=== PATIENT | female | born 1975 | race Caucasian/White ===

== ENCOUNTER 2020-10-22 18:52 | Inpatient (IN) | payer OTHER, SELFPAY ==
[2020-10-22 18:58] VITALS: BP 135/64; PULSE 108; RESP 16; TEMP 36.4; O2SAT 100; BMI 23.7
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
--- NOTE | 2020-10-22 20:00 | PC.NURSE ---
BOW MAKER [employer]ODUCTION at bedside for primary eval while pt was placed in 19H. Pt scattering multiple belongings across the floor, rifling through paperwork while BOW MAKER [employer] was trying to assess pt. Pt moved to 6H for safety. Pt continues scattering her belongings throughout the adams again, persistently rifling through paperwork, stating that he was looking for something. Although pt is calm, she is unable to follow simple commands due to scattered and eratic thoughts. Pt noted to be a poor historian, unsure if the information she is relaying is accurate. Pt agreeable to urine sample, urine obtained and sent. Awaiting reeval by B[employer], continue to monitor.
[2020-10-22 21:00] VITALS: RESP 16
[2020-10-22 21:17] LABS: MANUAL DIFF FLAG NO
[2020-10-22 21:20] LABS: Basophils Absolute Auto 0.1 X10*3/uL (0.0-0.2); Basophils Percent Auto 0.5 % (0-2); Eosinophils Absolute Auto 0.2 X10*3/uL (0.0-0.4); Eosinophils Percent Auto 1.5 % (0-4); Hematocrit 40.2 % (37-47); Hemoglobin 12.8 g/dl (12.0-16.0); Imm Gran Abs Auto 0.02 X10*3/uL (0.00-0.03); Imm Gran Pct Auto 0.2 % (0.0-0.4); Lymphocytes Percent Auto 18.3 % (20-40); Mean Corpuscular HGB Conc 31.8 g/dl (31.0-35.0); Mean Corpuscular Hemoglobin 29.4 pg (27.0-33.0); Mean Corpuscular Volume 92.4 fL (80-98); Mean Platelet Volume 9.7 fL (9.4-12.3); Monocytes Absolute Auto 0.5 X10*3/uL (0.1-1.2); Monocytes Percent Auto 4.5 % (2-11); Neutrophils Absolute Auto 8.2 X10*3/uL (2.0-8.3); Platelet Count 546 X10*3/uL (160-400); Red Blood Count 4.35 X10*6/uL (4.20-5.50); Red Cell Distribution Width 13.6 % (11.0-16.0)
[2020-10-22 21:26] LABS: UPreg QC Valid YES; Urine Pregnancy NEGATIVE (NEGATIVE)
[2020-10-22 21:37] LABS: Ethanol < 10 mg/dL
[2020-10-22 21:40] LABS: Salicylate < 5.0 mg/dL (15-30)
[2020-10-22 21:51] LABS: Amphetamine Screen Urine Not Detected (Not Detect); Barbiturates, Urine Not Detected (Not Detect); Benzodiazepines Screen Urine POSITIVE (Not Detect); Cannabinoid Screen Urine Not Detected (Not Detect); Cocaine Screen Urine Not Detected (Not Detect); Opiate Screen Urine Not Detected (Not Detect); Phencyclidine Screen Urine Not Detected (Not Detect)
--- NOTE | 2020-10-22 22:05 | PC.NURSE ---
Pt found sitting upright in chair, on cell phone. Pt requesting this RN notify multiple friends that she is safe, states her phone is not working. Upon evaluation by this RN, sim card to phone found to be removed, pt unable to make calls/send texts. Pt found sim card in the water in the bathroom sink, states she is unsure how the sim card fell out of her phone. Pt requesting food/drink, provided with water and GF snacks. Pt states I can't eat those, I have Celiacs. This RN reassuring pt that they were GF, showing pt the GF label. Pt still refusing to eat/drink despite claiming she is dehydrated, pt storing all of the food in her suitcase. Continue to monitor.
--- NOTE | 2020-10-22 22:20 | PC.NURSE ---
Pt provided with a portable phone to assure friends/family of her safety. Pt asking this RN to do so but then refusing to allow this RN to contact friends/family.
--- NOTE | 2020-10-22 22:39 | PC.NURSE ---
THIS RN SPOKE W/ NORMAN AT [facility] WHO ADVISED FAX RECEIVED, WILL BE PASSED ON TO HOSPITAL LIAISON TO SET UP EVALUATION.
[2020-10-22] MEDS: ALPRAZolam 0.5 MG TABLET 1 MG PO (22:49)
[2020-10-22 23:00] VITALS: RESP 20
[2020-10-22 23:18] LABS: Acetaminophen LAB < 1 mcg/mL (<30)
--- NOTE | 2020-10-22 23:18 | PC.NURSE ---
Pt speaking with crisis at bedside, appears calm and cooperative at this time.
[2020-10-23 01:00] VITALS: RESP 16
--- NOTE | 2020-10-23 01:08 | PC.NURSE ---
METAL FILER at bedside discussing plan to transfer to pod, pt notified at this time that she has been Section 12ed.
--- NOTE | 2020-10-23 01:15 | PC.NURSE ---
Pt transferred into pod.
[2020-10-23 02:00] LABS: COVID-19 Test Negative (Negative); IDNOW Serial# 9DD0AD1C
[2020-10-23 02:04] VITALS: BP 143/96; PULSE 109; RESP 16; TEMP 36.9; O2SAT 97
[2020-10-23] MEDS: clonazePAM 1 MG TABLET PO (02:04)
[2020-10-23] MEDS: HaloperidoL 5 MG TABLET PO (02:04)
--- NOTE | 2020-10-23 02:14 | PC.NURSE ---
PATIENT MOVED TO POD AFTER BEING IN ED FOR SEVERAL HOURS. PT ASKED TO USE THE BATHROOM ALONE BEFORE CHANGING OVER. THIS STAFF WATCHED IN THE MIRROR AND NOTICED PT HAND UNDER HER SHIRT AND OPENED THE DOOR AND QUICKLY BEGAN CHANGEOVER. DURING CHANGEOVER PT WAS ASKED TO REMOVE HER UNDERWIRE BRA. PT GAVE THIS STAFF A HARD TIME REMOVING BRA. WHEN BRA WAS REMOVED PILLS FELL ON THE FLOOR AND IN PT ARMS. THIS STAFF CALLED SECURITY AND REMOVED ALL PILLS AND BELONGINGS.
--- NOTE | 2020-10-23 02:38 | MHC.CARE ---
CARE Team present in Pod when pt is transferred from main ED. Per pod tech, pt was found to have numerous pills in her bra during exchange administrator. Intent is unknown at this time. Pt is observed to be decompensated, with delusional, paranoid thought process. Pt is demanding toward staff and is observed to have excess energy and labile mood. CARE Team places pt on sect 12 for safety until crisis team can assess pt. Pt has not been assessed by [facility], and per Jabari RN, pt was recently added to N queue. CARE Team reaches out to [facility] crisis in [place] to gather additional information. Per Ramsey from QUILTING SUPERVISOR, [place] [facility] [place] a sect 12 for similar presentation, though seemingly lower acuity, and was d/c to home. [facility] reports that prior to recent evaluation, they had not seen pt since 05/2019. Plan is for pt to be seen by [facility] crisis.
[2020-10-23 03:26] LABS: Anion Gap 15 (12-20); Blood Urea Nitrogen 7 mg/dL (9-16); Carbon Dioxide 25 mmol/L (22-29); Chloride 106 mmol/L (96-108); Creatinine Clr Calc Pharmacy 132.1; Estimated Glomerular Filt Rate > 60; Glucose Random 101 mg/dL (60-115); Potassium 3.7 mmol/L (3.3-5.1); Sodium 142 mmol/L (135-145)
--- NOTE | 2020-10-23 03:29 | PC.NURSE ---
[facility] at bedside.
--- NOTE | 2020-10-23 07:16 | PC.NURSE ---
Report received from TRAVIS Barboza. Pt resting, resp unlabored.
--- NOTE | 2020-10-23 10:44 | PC.NURSE ---
Psychiatry in w/ pt
--- NOTE | 2020-10-23 12:32 | PC.NURSE ---
Late entry: pt seen by M5 provider, medications currently on hold until further notice. Pt when awake very anxious about her medications, stating they are prescribed, and she needs them. Pt also anxious about food, states she has multiple restrictions, reports she has coca cola in her locker which she requires for medical reasons. Reviewed w/ security, luistle sealed, pt was able to tolerate cheerios and coca cola. Currently resting, resp unlabored.,
[2020-10-23 14:11] LABS: Folate 4.7 ng/mL (> or = 4.0); Vitamin B12 1234 pg/mL (200-900)
[2020-10-23 15:39] VITALS: BP 124/72; PULSE 85; RESP 18; TEMP 37.1; O2SAT 98
--- NOTE | 2020-10-23 15:56 | PC.NURSE ---
Pt awake briefly, asking 'what's the plan.' Pt notified that she has been accepted to . Pt stating 'I thought I was going to go to a medical unit?' Explained inpatient process and structure. No further questions asked. Pt currently resting.
--- NOTE | 2020-10-23 16:53 | MHC.CM.ED ---
Late entry for 10/22/20 at 2245. CM asked to meet with pt by Aniya Carlos. Pt alert and oriented to person, place and time. Pt exhibits rambling speech and is unable to answer basic questions directly. Pt was unable to tell CM who her PCP was initially and was searching through loose papers to find the name and spelling. Dr. Wilfrido Garnica cares for her lymes disease in [place] and her PCP is Jennifer Levi N.P. Pt would not speak to me until the SIM card was removed from her phone. States my is listening and tracking me with it . CM suggested she shut off the phone, but pt stated he can still hear her. RN removed SIM card and gave it back to pt at her request. CM asked pt if she had health insurance, as she is listed as self pay. Pt again sifted through her plastic bag of paperwork and told me she had [employer] through her . She then handed CM a receipt from [facility] and requested CM to call them for the insurance information. When CM asked pt why she came to the emergency room, pt stated her friend who works here told her we could advocate for her . Pt wants CM to call the [employer] and ask them to remove the computer from her home in [place], as her is trying to take her children from her. Stated there are untruths on that computer. CM explained that in the ER, we could care for her medically and mentally, but I could not call the [place] [employer] with that request. Pt seemed very confused by that. Pt then told CM that her is taking her children from her and is going to divorce her. Stated she has no where to go, Pt states she was in [place] for treatments for neurologic lymes disease and a host of other diseases and has been home for 2 days. Pt is rambling and unable to focus during conversation. CM then spoke with Aniya Rangel and relayed above information to her. KLARISSA told N.P. that pt does not appear to be safe to leave ER and needs to have a Crisis evaluation, as this is not CM speciality. Pt is awaiting [facility] crisis evaluation and is not a CM pt at this time.
--- NOTE | 2020-10-23 17:51 | PC.NURSE ---
Pt resting, resp unlabored.
--- NOTE | 2020-10-23 18:33 | PC.NURSE ---
Pt awakened, now eating dinner, cheerios as requested. No other concerns reported.
--- NOTE | 2020-10-23 20:25 | P.CNPS_ITS ---
History of Present Illness Date of Service: 10/23/2020 Chief Complaint: PSYCHOSIS Reason for Consult: psychosis Discussed with referring provider: Yes Sources of Information: patient interviewed, chart reviewed and crisis/core team assessment reviewed HPI Narrative: Mrs. Peralta is a 44 year-old woman with hx of Bipolar Disorder. Pt was brought to [facility] ED via EMS after called 911 as pt was reporting paranoid delusions of several people following her, yelling, physically assaultive towards when redirected, found standing naked in driveway. In the ED, utox was positive for benzos. 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 Pt in fact returned from [place] 3 days prior to presenting to ED. Apparently, pt was being treated for lyme disease with FITTER'S ASSISTANT involvement by a specialist in [place]. However, pt did not receive treartment as she was combative, agitated, paranoid. [place] was [place] back [place] Per , when pt return she was agitated, combative, with paranoid delusions, very irritable and disorganized. She was not eating nor sleeping. Pt in the ED, presents as irritable. She reports people tracking her and hacking her computer. She states she has complications from lyme and this is the treatment she needs. She dismisses previous dx of Bipolar two years ago. She denies VH/AH. Past Psychiatric History: Inpatient: [facility] 2018 OP: [employer] Medication trials: adderall, xanax, risperidone Medical Evaluation Reviewed: Yes Review of Systems Constitutional: Reports daytime sleepiness and Reports fatigue Reports Normal hearing present and Denies dizziness Cardiovascular: Denies chest pain, Denies chest pain with activity, Denies rapid heart rate and Denies dyspnea Respiratory: Denies chest congestion, Denies cough and Denies dyspnea Gastrointestinal: Denies constipation and Denies diarrhea Reports Normal hearing present, Denies Neuro-related abnormal movements, Denies burning sensations and Denies dizziness Endocrine: Reports fatigue PMF Medical History ADHD Anxiety Ethan Marrero infection Lyme disease Mast cell activation [place] exposure PTSD (post-traumatic stress disorder) Diagnostics Vital Signs (24Hr): Vital Signs - 24 hr 10/22/20 21:00 10/22/20 23:00 10/23/20 01:00 Temperature Pulse Rate Respiratory Rate 16 20 16 Blood Pressure Pulse Oximetry 10/23/20 02:04 10/23/20 15:39 Temperature 98.4 F 98.8 F Pulse Rate 109 H 85 Respiratory Rate 16 18 Blood Pressure 143/96 H 124/72 Pulse Oximetry 97 98 Body Mass Index 23.7 Labs Results: 10/22/20 21:10 10/23/20 02:52 Labs: Laboratory Results - last 48 hr 10/22/20 10/22/20 10/22/20 21:10 21:10 21:10 WBC 11.0 H RBC 4.35 Hgb 12.8 Hct 40.2 MCV 92.4 MCH 29.4 MCHC 31.8 RDW 13.6 Plt Count 546 H MPV 9.7 Immature Gran % (Auto) 0.2 Neut % (Auto) 75.0 H Lymph % (Auto) 18.3 L [place] % (Auto) 4.5 Eos % (Auto) 1.5 Baso % (Auto) 0.5 Lymph # (Auto) 2.0 [place] # (Auto) 0.5 Eos # (Auto) 0.2 Baso # (Auto) 0.1 Abs Immat Gran (auto) 0.02 Absolute Neuts (auto) 8.2 Absolute Nucleated RBC 0.000 Nucleated RBC % (auto) 0.0 Sodium Potassium Chloride Carbon Dioxide Anion Gap BUN Creatinine Estim Creat Clear Calc Estimated GFR Random Glucose Calcium Vitamin B12 Folate Urine Test Salicylates < 5.0 L Urine Opiates Screen Not Detected Acetaminophen < 1 Ur Barbiturates Screen Not Detected Ur Phencyclidine Scrn Not Detected Ur Amphetamines Screen Not Detected U Benzodiazepines Scrn POSITIVE H Urine Cocaine Screen Not Detected U Marijuana (THC) Screen Not Detected Ethyl Alcohol COVID-19 (JINA) COVID-19 Clin Com 10/22/20 10/22/20 10/23/20 21:10 21:10 01:31 WBC RBC Hgb Hct MCV MCH MCHC RDW Plt Count MPV Immature Gran % (Auto) Neut % (Auto) Lymph % (Auto) [place] % (Auto) Eos % (Auto) Baso % (Auto) Lymph # (Auto) [place] # (Auto) Eos # (Auto) Baso # (Auto) Abs Immat Gran (auto) Absolute Neuts (auto) Absolute Nucleated RBC Nucleated RBC % (auto) Sodium Potassium Chloride Carbon Dioxide Anion Gap BUN Creatinine Estim Creat Clear Calc Estimated GFR Random Glucose Calcium Vitamin B12 Folate Urine Test NEGATIVE Salicylates Urine Opiates Screen Acetaminophen Ur Barbiturates Screen Ur Phencyclidine Scrn Ur Amphetamines Screen U Benzodiazepines Scrn Urine Cocaine Screen U Marijuana (THC) Screen Ethyl Alcohol < 10 COVID-19 (JINA) Negative COVID-19 Clin Com See Note 10/23/20 10/23/20 02:52 13:07 WBC RBC Hgb Hct MCV MCH MCHC RDW Plt Count MPV Immature Gran % (Auto) Neut % (Auto) Lymph % (Auto) [place] % (Auto) Eos % (Auto) Baso % (Auto) Lymph # (Auto) [place] # (Auto) Eos # (Auto) Baso # (Auto) Abs Immat Gran (auto) Absolute Neuts (auto) Absolute Nucleated RBC Nucleated RBC % (auto) Sodium 142 Potassium 3.7 Chloride 106 Carbon Dioxide 25 Anion Gap 15 BUN 7 L Creatinine 0.62 Estim Creat Clear Calc 132.1 Estimated GFR > 60 Random Glucose 101 Calcium 9.0 Vitamin B12 1234 H Folate 4.7 Urine Test Salicylates Urine Opiates Screen Acetaminophen Ur Barbiturates Screen Ur Phencyclidine Scrn Ur Amphetamines Screen U Benzodiazepines Scrn Urine Cocaine Screen U Marijuana (THC) Screen Ethyl Alcohol COVID-19 (JINA) COVID-19 Clin Com Mental Status Exam Mental Status Exam Narrative: Appearance: wearing hospital gown, poor hygiene, disheveled Behavior: guarded and irritable Psychomotor: some agitation noted Speech: clear, normal rate/rhythm/volume, spontaneous TP: tangential TC: perseverance on somatic concerns, paranoid delusions thinks she is being followed, conspiring against her. Mood: frustrated Affect:irritable, congruent with reported mood SI:denies HI:denies AH/VH:denies Delusions:paranoid delusions Insight/judgment:impairedx 2 Memory/cog: alert oriented x 3.impaired secondary to psychiatric symptoms. Medications Medications Current Medications Generic Name Dose Route Start Last Admin Trade Name Freq PRN Reason Stop Dose Admin Haloperidol 2 mg 10/23/20 12:06 Haloperidol 1 Mg Tablet PO Q6H PRN agitation Allergies Allergies Allergy/AdvReac Type Severity Reaction Status Date / Time lorazepam [From Ativan] AdvReac Headache Verified 10/22/20 19:11 Assessment & Plan Assessment & Plan (1) Bipolar 1 disorder: Status: Acute Code(s): F31.9 - Bipolar disorder, unspecified Recommendations: 1. Pt continues to meet inpatient level of care. 2. Pt refusing medications but explained that they will be offered and she can decline. Greater than 50% of the session was spent on counseling and/or coordination of care Patient educated on: diagnosis, medication risk/benefits, substance abuse and therapeutic strategies Informed Consent: understands
[2020-10-23 21:18] VITALS: BP 146/81; PULSE 77; RESP 20; TEMP 36.6; O2SAT 95
--- NOTE | 2020-10-23 22:44 | PC.NURSE ---
RN to RN report completed with M5. Orders put in by M5 provider will be taken on M5 per M5. Patient wants to sign the 3 day notice, patient made aware of CV and 3 day notice and wanted to sign CV, foam provided/patient signed CV, care team notified.
[2020-10-23 23:40] VITALS: BP 133/51; PULSE 90; TEMP 36.4
--- NOTE | 2020-10-24 01:29 | PC.ADMIT ---
Patient is a 44 year old Macedonian speaking female admitted from [facility] ED to M5 as a Section 12B at 2340 10/23/2020 and placed on 5 minute safety checks. Patient was evaluated by N after being medically cleared in the ED and deemed in need of IPLOC on the Psychiatric unit. Patient was relatively pleasant with rapid, disorganized and pressured speech. She was willing to sign releases for providers but was too tired to complete the admission assessment with this science writer. Patient said that due to her Lyme Disease issues she really needed to be on the medical unit. Patient denied any SI or HI, denied any AH or VH. She did c/o feeling cold which she said is due to her immune issues. Patient was given warm blankets and also given a pitcher of stu martin. She was provided a quiet place to sleep in Group room B on a mattress with additional blankets. She repeated I am so tired I just need to go to sleep . Admission orders were placed by Dr. Mattson. Patient will be on 5 minute safety checks with unlocked bathroom. Her past psychiatric history seems vague but she does have providers. She was recently in [place] for treatment for several medical conditions but the treatments were stopped because of her combative behavior. Additional information is in the N assessment
[2020-10-24 07:02] LABS: Lyme Abs Screen <0.90 index
[2020-10-24 07:54] LABS: HIV AB/AG Nonreactive (Nonreactive); HIV Num 1 0.07 S/CO (0.00-0.99)
[2020-10-24 09:06] LABS: Syphilis Screen Nonreactive (Nonreactive)
--- NOTE | 2020-10-24 17:08 | P.HPPS_ITS ---
HPI Chief Complaint: PSYCHOSIS Sources of Information: patient interviewed, chart reviewed and crisis/core team assessment reviewed HPI Subjective Notes: Section 12B Narrative: Ms. Peralta is a 44 year-old woman with hx of Bipolar Disorder who was brought to [facility] ED after called 911 as pt has been presenting as increasingly more agitated, paranoid delusions, physically aggressive towards in attempt to be redirected, standing naked in drive way. In ED, utox positive for benzodiazepine. Mrs. Peralta apparently came back from [place] two days before presenting to ED where she was receiving treatment for Lyme Disease with PURIFICATION DIRECTOR involvement. Pt was sent back due to increase disorganization, paranoia and agitation. Pt reports that she is being tracked by about 14 individual who have hacked her phone, computer. She also believes is trying to take her children away and that she does not need psychiatric treatment. Pt insists having on rare blood disorder as cause of confusion, fatigue. She denies VH/AH. She declines taking any psychotropic medication as she reports those are toxic medications for the brain. Pt's has restraining order against pt due to agitation and explosive behaviors and fear that she may take children erradically as she did two years ago. reports pt started to have similar symptoms after having first child 5 years ago. reports pt decompensated even further two years ago. Pt also has combination of autoimmune conditions including Hashimotos, mast cell activation. 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 Past Psychiatric History: Inpatient: [facility] 2018 OP: CUSTOMER SUCCESS ADVOCATE Medication trials: adderall, xanax, risperidone Medical Evaluation Reviewed: Yes [facility] Medical History ADHD Anxiety Ethan Marrero infection Lyme disease Mast cell activation [place] exposure PTSD (post-traumatic stress disorder) Diagnostics Vital Signs (24Hr): Vital Signs - 24 hr 10/23/20 21:18 10/23/20 23:40 Temperature 97.9 F 97.6 F Pulse Rate 77 90 Respiratory Rate 20 Blood Pressure 146/81 H 133/51 L Pulse Oximetry 95 Body Mass Index 23.7 Labs Results: 10/22/20 21:10 10/23/20 02:52 Labs: Laboratory Results - last 48 hr 03/31/21 03/31/21 03/31/21 21:10 21:10 21:10 WBC 11.0 H RBC 4.35 Hgb 12.8 Hct 40.2 MCV 92.4 MCH 29.4 MCHC 31.8 RDW 13.6 Plt Count 546 H MPV 9.7 Immature Gran % (Auto) 0.2 Neut % (Auto) 75.0 H Lymph % (Auto) 18.3 L [place] % (Auto) 4.5 Eos % (Auto) 1.5 Baso % (Auto) 0.5 Lymph # (Auto) 2.0 [place] # (Auto) 0.5 Eos # (Auto) 0.2 Baso # (Auto) 0.1 Abs Immat Gran (auto) 0.02 Absolute Neuts (auto) 8.2 Absolute Nucleated RBC 0.000 Nucleated RBC % (auto) 0.0 Sodium Potassium Chloride Carbon Dioxide Anion Gap BUN Creatinine Estim Creat Clear Calc Estimated GFR Random Glucose Calcium Vitamin B12 Folate Urine Test Salicylates < 5.0 L Urine Opiates Screen Not Detected Acetaminophen < 1 Ur Barbiturates Screen Not Detected Ur Phencyclidine Scrn Not Detected Ur Amphetamines Screen Not Detected U Benzodiazepines Scrn POSITIVE H Urine Cocaine Screen Not Detected U Marijuana (THC) Screen Not Detected Ethyl Alcohol T.pallidum Ab (EIA) Lyme Screen IgG & IgM COVID-19 (JINA) COVID-19 Clin Com HIV 1&2 Ab/P24 Ag 4thGn 10/22/20 10/22/20 10/23/20 21:10 21:10 01:31 WBC RBC Hgb Hct MCV MCH MCHC RDW Plt Count MPV Immature Gran % (Auto) Neut % (Auto) Lymph % (Auto) [place] % (Auto) Eos % (Auto) Baso % (Auto) Lymph # (Auto) [place] # (Auto) Eos # (Auto) Baso # (Auto) Abs Immat Gran (auto) Absolute Neuts (auto) Absolute Nucleated RBC Nucleated RBC % (auto) Sodium Potassium Chloride Carbon Dioxide Anion Gap BUN Creatinine Estim Creat Clear Calc Estimated GFR Random Glucose Calcium Vitamin B12 Folate Urine Test NEGATIVE Salicylates Urine Opiates Screen Acetaminophen Ur Barbiturates Screen Ur Phencyclidine Scrn Ur Amphetamines Screen U Benzodiazepines Scrn Urine Cocaine Screen U Marijuana (THC) Screen Ethyl Alcohol < 10 T.pallidum Ab (EIA) Lyme Screen IgG & IgM COVID-19 (JINA) Negative COVID-19 Clin Com See Note HIV 1&2 Ab/P24 Ag 4thGn 10/23/20 10/23/20 10/23/20 02:52 13:07 13:07 WBC RBC Hgb Hct MCV MCH MCHC RDW Plt Count MPV Immature Gran % (Auto) Neut % (Auto) Lymph % (Auto) [place] % (Auto) Eos % (Auto) Baso % (Auto) Lymph # (Auto) [place] # (Auto) Eos # (Auto) Baso # (Auto) Abs Immat Gran (auto) Absolute Neuts (auto) Absolute Nucleated RBC Nucleated RBC % (auto) Sodium 142 Potassium 3.7 Chloride 106 Carbon Dioxide 25 Anion Gap 15 BUN 7 L Creatinine 0.62 Estim Creat Clear Calc 132.1 Estimated GFR > 60 Random Glucose 101 Calcium 9.0 Vitamin B12 Folate Urine Test Salicylates Urine Opiates Screen Acetaminophen Ur Barbiturates Screen Ur Phencyclidine Scrn Ur Amphetamines Screen U Benzodiazepines Scrn Urine Cocaine Screen U Marijuana (THC) Screen Ethyl Alcohol T.pallidum Ab (EIA) Nonreactive Lyme Screen IgG & IgM <0.90 COVID-19 (JINA) COVID-[employer] Clin Com HIV 1&2 Ab/P24 Ag 4thGn 10/23/20 10/23/20 13:07 13:08 WBC RBC Hgb Hct MCV MCH MCHC RDW Plt Count MPV Immature Gran % (Auto) Neut % (Auto) Lymph % (Auto) [place] % (Auto) Eos % (Auto) Baso % (Auto) Lymph # (Auto) [place] # (Auto) Eos # (Auto) Baso # (Auto) Abs Immat Gran (auto) Absolute Neuts (auto) Absolute Nucleated RBC Nucleated RBC % (auto) Sodium Potassium Chloride Carbon Dioxide Anion Gap BUN Creatinine Estim Creat Clear Calc Estimated GFR Random Glucose Calcium Vitamin B12 1234 H Folate 4.7 Urine Test Salicylates Urine Opiates Screen Acetaminophen Ur Barbiturates Screen Ur Phencyclidine Scrn Ur Amphetamines Screen U Benzodiazepines Scrn Urine Cocaine Screen U Marijuana (THC) Screen Ethyl Alcohol T.pallidum Ab (EIA) Lyme Screen IgG & IgM COVID-19 (JINA) COVID-19 Clin Com HIV 1&2 Ab/P24 Ag 4thGn Nonreactive Meds/Allergies Meds Home Medications Acetaminophen (Acetaminophen 325 Mg Tablet) 650 mg PO Q6H PRN PRN Reason: Headache/Pain Mild Scale (1-3) Al Hydroxide/Mg Hydroxide (Magnesium Hydrox/Alum Hydrox 30 Ml Oral.Susp) 30 ml PO Q6H PRN PRN Reason: Heartburn/Nausea Alprazolam (Alprazolam 0.5 Mg Tablet) 1 mg PO DAILY PRN PRN Reason: Agitation Clonazepam (Clonazepam 0.5 Mg Tablet) 0.5 mg PO Q8H PRN PRN Reason: Anxiety Haloperidol (Haloperidol 1 Mg Tablet) 2 mg PO Q6H PRN PRN Reason: agitation Hydroxyzine HCl (Hydroxyzine Hcl 25 Mg Tablet) 25 mg PO BEDTIME PRN PRN Reason: Anxiety Magnesium Hydroxide (Milk Of Magnesia 30 Ml Oral.Susp) 30 ml PO DAILY PRN PRN Reason: Constipation Olanzapine (Olanzapine 5 Mg Tablet) 5 mg PO BID CHARLIE Last Admin: 10/24/20 08:48 Dose: Not Given Documented by: Trazodone HCl (Trazodone Hcl 50 Mg Tablet) 50 mg PO BEDTIME PRN PRN Reason: Insomnia Allergies Allergies Allergy/AdvReac Type Severity Reaction Status Date / Time lorazepam [From Ativan] AdvReac Headache Verified 10/22/20 19:11 Mental Status Exam Mental Status Exam Narrative: Appearance: wearing hospital gown, poor hygiene, disheveled Behavior: guarded and irritable Psychomotor: some agitation noted Speech: clear, normal rate/rhythm/volume, spontaneous TP: tangential TC: perseverance on somatic concerns, paranoid delusions thinks she is being followed, conspiring against her. Mood: frustrated Affect:irritable, congruent with reported mood SI:denies HI:denies AH/VH:denies Delusions:paranoid delusions Insight/judgment:impairedx 2 Memory/cog: alert oriented x 3.impaired secondary to psychiatric symptoms. Assessment & Plan Assessment & Plan (1) Bipolar 1 disorder: Status: Acute Code(s): F31.9 - Bipolar disorder, unspecified Assessment and Plan: 1. Obtain collateral information 2. Start Olanzapine 5mg po BID. Reason for continued inpatient stay Substantial Risk for: inability to function
[2020-10-24 20:00] VITALS: BP 115/59; PULSE 86; TEMP 36.7
[2020-10-24] MEDS: clonazePAM 0.5 MG TABLET PO (20:13)
[2020-10-24] MEDS: HaloperidoL 1 MG TABLET 2 MG PO (20:18)
[2020-10-25 06:35] VITALS: BP 128/74; PULSE 75; RESP 16; TEMP 37.1; O2SAT 97
[2020-10-25 08:06] LABS: Baso%MD 0.7 %; Eos%MD 4.7 %; Hemoglobin 12.1 g/dl (12.0-16.0); IG%MD 0.4 %; Mean Corpuscular HGB Conc 31.8 g/dl (31.0-35.0); Mean Corpuscular Hemoglobin 29.2 pg (27.0-33.0); Mean Corpuscular Volume 91.8 fL (80-98); Mean Platelet Volume 9.7 fL (9.4-12.3); Mono%MD 6.9 %; Neut%MD 60.3 %; Platelet Count 442 X10*3/uL (160-400); Red Blood Count 4.14 X10*6/uL (4.20-5.50); Red Cell Distribution Width 13.2 % (11.0-16.0); White Blood Count 6.8 X10*3/uL (4.8-10.8)
[2020-10-25] MEDS: clonazePAM 0.5 MG TABLET PO ×2 (09:04→20:25)
[2020-10-25] MEDS: HaloperidoL 1 MG TABLET 2 MG PO ×2 (09:10→18:15)
[2020-10-25] MEDS: Acetaminophen 325 MG TABLET 650 MG PO ×2 (09:10→20:27)
[2020-10-25 09:14] LABS: Band Neutrophils Percent 2 % (3-5); Basophils Abs Manual 0.1 X10*3/uL (0.0-0.3); Basophils Percent Manual 1 % (0-1); Eosinophils Absolute Manual 0.3 X10*3/UL (0.0-0.8); Eosinophils Percent Manual 4 % (0-4); Lymphocytes Percent Manual 30 % (20-40); Monocytes Absolute Manual 0.3 X10*3/uL (0.0-1.2); Monocytes Percent Manual 5 % (2-11); Neutrophils Absolute Manual 4.1 X10*3/uL (2.2-7.9); Neutrophils Percent Manual 58 % (45-73); RBC Morphology NORMAL
[2020-10-25 09:15] LABS: Platelet Estimate SLIGHTLY INCREASED (NORMAL); Platelet Morphology Comment NORMAL
[2020-10-25] MEDS: OLANZapine 5 MG TABLET PO (20:25)
--- NOTE | 2020-10-25 20:32 | HO.PSYCHPN ---
Subjective Subjective Date of Service: 10/25/20 Reason For Visit: PSYCHOSIS Interim History: Angélica remains extremely ambivalent about taking any medication. She has been taking some with strong persuasion. She is pressured, disorganized and only briefly able to acknowlege that she is manic. She is fixated on her INFECTION PREVENTION COORDINATOR Lyme diagnosis. Medication Compliance: Intermittent Side effects from medications: No Attending Groups: No Review of Systems Acute medical concerns: No Medical Review of Systems: unchanged Review of Systems Review of Systems Yes all other systems are reviewed and are negative Mental Status Exam Mental Status Exam Patient Appearance: Disheveled Level of Consciousness: Appropriate Patient Behavior: Talkative, Cooperative, Suspicious, Restless and Confused Mood Description: Suspicious, Anxious, Labile and Nervous Affect Description: Suspicious and Labile Patient Cognition Impaired: No Ability to Follow Directions: Poor Speech Pattern: Perseverating, Rambling and Pressured Memory Description: Intact Hallucinations: None Delusions: Not Present Thought Process: Rumination and Confusion Thought Content: positive for Flight of Ideas, positive for Circumstantial, positive for Perseveration, positive for Disorganized, negative for Suicidal Ideation and negative for Homicidal Ideation Judgement: Poor Diagnostics Vital Signs (24Hr): Vital Signs - 24 hr 10/25/20 06:35 Temperature 98.7 F Pulse Rate 75 Respiratory Rate 16 Blood Pressure 128/74 Pulse Oximetry 97 Body Mass Index 23.7 Labs Results: 10/25/20 07:29 10/23/20 02:52 Labs: Laboratory Results - last 48 hr 10/23/20 10/23/20 10/23/20 13:07 13:07 13:08 WBC RBC Hgb Hct MCV MCH MCHC RDW Plt Count MPV Absolute Nucleated RBC Nucleated RBC % (auto) Neutrophils % (Manual) Band Neutrophils % Lymphocytes % (Manual) Monocytes % (Manual) Eosinophils % (Manual) Basophils % (Manual) Abs Neuts (Manual) Lymphocytes # (Manual) Monocytes # (Manual) Eosinophils # (Manual) Basophils # (Manual) Platelet Estimate Plt Morphology Comment RBC Morphology T.pallidum Ab (EIA) Nonreactive Lyme Screen IgG & IgM <0.90 HIV 1&2 Ab/P24 Ag 4thGn Nonreactive 10/25/20 07:29 WBC 6.8 RBC 4.14 L Hgb 12.1 Hct 38.0 MCV 91.8 MCH 29.2 MCHC 31.8 RDW 13.2 Plt Count 442 H MPV 9.7 Absolute Nucleated RBC 0.000 Nucleated RBC % (auto) 0.0 Neutrophils % (Manual) 58 Band Neutrophils % 2 L Lymphocytes % (Manual) 30 Monocytes % (Manual) 5 Eosinophils % (Manual) 4 Basophils % (Manual) 1 Abs Neuts (Manual) 4.1 Lymphocytes # (Manual) 2.0 Monocytes # (Manual) 0.3 Eosinophils # (Manual) 0.3 Basophils # (Manual) 0.1 Platelet Estimate SLIGHTLY INCREASED Plt Morphology Comment NORMAL RBC Morphology NORMAL T.pallidum Ab (EIA) Lyme Screen IgG & IgM HIV 1&2 Ab/P24 Ag 4thGn Medications Medications Current Medications Generic Name Dose Route Start Last Admin Trade Name Freq PRN Reason Stop Dose Admin Acetaminophen 650 mg 10/23/20 22:12 10/25/20 20:27 Acetaminophen 325 Mg Tablet PO 650 mg Q6H PRN Administration Headache/Pain Mild Scale (1-3) Al Hydroxide/Mg Hydroxide 30 ml 10/23/20 22:12 Magnesium Hydrox/Alum Hydrox 30 Ml Oral.Susp PO Q6H PRN Heartburn/Nausea Clonazepam 0.5 mg 10/24/20 21:00 10/25/20 20:25 Clonazepam 0.5 Mg Tablet PO 0.5 mg BID CHARLIE Administration Haloperidol 2 mg 10/23/20 12:06 10/25/20 18:15 Haloperidol 1 Mg Tablet PO 2 mg Q6H PRN Administration agitation Hydroxyzine HCl 25 mg 10/23/20 22:12 Hydroxyzine Hcl 25 Mg Tablet PO BEDTIME PRN Anxiety Magnesium Hydroxide 30 ml 10/23/20 22:12 Milk Of Magnesia 30 Ml Oral.Susp PO DAILY PRN Constipation Olanzapine 5 mg 10/23/20 21:00 10/25/20 20:25 Olanzapine 5 Mg Tablet PO 5 mg BID CHARLIE Administration Trazodone HCl 50 mg 10/23/20 22:12 Trazodone Hcl 50 Mg Tablet PO BEDTIME PRN Insomnia Allergies Allergies Allergy/AdvReac Type Severity Reaction Status Date / Time lorazepam [From Ativan] AdvReac Headache Verified 10/22/20 19:11 Assessment & Plan Assessment & Plan (1) Acute psychosis: Status: Acute Code(s): F23 - Brief psychotic disorder (2) Bipolar 1 disorder: Status: Acute Code(s): F31.9 - Bipolar disorder, unspecified Assessment and Plan: CT current plan Greater than 50% of the session was spent on counseling and/or coordination of care Patient educated on: diagnosis and medication risk/benefits Informed Consent: does not understand Reason for contiued inpatient stay Substantial Risk for: harm to self, inability to function and rapid decompensation
[2020-10-26] MEDS: clonazePAM 0.5 MG TABLET PO ×3 (08:36→20:31)
[2020-10-26] MEDS: OLANZapine 5 MG TABLET PO ×2 (08:37→20:31)
--- NOTE | 2020-10-26 11:35 | PC.NURSE ---
Patients called into unit for an update. Update given. Pts verbalizing his frustration that we have not reached out to her MD in [place]. Dr Mattson notified
[2020-10-26] MEDS: HaloperidoL 1 MG TABLET 2 MG PO ×2 (12:02→18:17)
[2020-10-26] MEDS: Acetaminophen 325 MG TABLET 650 MG PO ×2 (12:03→20:31)
--- NOTE | 2020-10-26 17:04 | HO.PSYCHPN ---
Subjective Subjective Date of Service: 10/26/20 Reason For Visit: PSYCHOSIS Subjective Notes: Freire Warning Interim History: Angélica remains extremely ambivalent about taking any medication. She has been taking some with strong persuasion. She is pressured, disorganized and only briefly able to acknowledge that she is manic. 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 I had a lengthy discussion with her Jules who is concerned that her team look into her medical conditions and consider how these may or may not be playing into this picture. He would like her provider to speak with the physician in [place] to coordinate her care. Medication Compliance: Intermittent Side effects from medications: No Attending Groups: No Review of Systems Acute medical concerns: No Medical Review of Systems: unchanged Review of Systems Review of Systems Constitutional: No Fever, No Chills ENT/Mouth: No Ear Pain, No Nasal Congestion, No sore throat Eyes: No Eye Pain, No Swelling, No Redness Cardiovascular: No Chest Pain, No SOB Respiratory: No Cough, No Sputum, No Dyspnea Gastrointestinal: No Nausea, No Vomiting, No Diarrhea, No Hematochezia, No Melena Genitourinary: No Dysuria, No Urinary Frequency, No Hematuria Musculoskeletal: No Myalgias Skin: No Skin Lesions, No rash Neuro: No Weakness, No Numbness, No Paresthesias, No Dizziness, No Headache Psych: positive Anxiety, positive Depression, positive bryce, no SI/HI Heme/Lymph: No Lymphadenopathy Endocrine: No Polyuria, No Polydipsia Yes all other systems are reviewed and are negative Constitutional: Reports daytime sleepiness and Reports fatigue Reports Normal hearing present and Denies dizziness Cardiovascular: Denies chest pain, Denies chest pain with activity, Denies rapid heart rate and Denies dyspnea Respiratory: Denies chest congestion, Denies cough and Denies dyspnea Gastrointestinal: Denies constipation and Denies diarrhea Reports Normal hearing present, Denies Neuro-related abnormal movements, Denies burning sensations and Denies dizziness Endocrine: Reports fatigue Mental Status Exam Mental Status Exam Patient Appearance: Disheveled Level of Consciousness: Appropriate Patient Behavior: Guarded, Talkative, Suspicious, Restless, Anxious and Confused Mood Description: Suspicious, Anxious, Labile, Nervous and Apprehensive Affect Description: Suspicious and Labile Patient Cognition Impaired: No Ability to Follow Directions: Poor Speech Pattern: Perseverating, Rambling and Pressured Memory Description: Intact Thought Process: Evasive Thought Content: positive for Circumstantial, positive for Perseveration, positive for Disorganized, negative for Suicidal Ideation and negative for Homicidal Ideation Judgement: Poor Diagnostics Vital Signs (24Hr): Body Mass Index 23.7 Labs Results: 10/25/20 07:29 10/23/20 02:52 Labs: Laboratory Results - last 48 hr 10/25/20 07:29 WBC 6.8 RBC 4.14 L Hgb 12.1 Hct 38.0 MCV 91.8 MCH 29.2 MCHC 31.8 RDW 13.2 Plt Count 442 H MPV 9.7 Absolute Nucleated RBC 0.000 Nucleated RBC % (auto) 0.0 Neutrophils % (Manual) 58 Band Neutrophils % 2 L Lymphocytes % (Manual) 30 Monocytes % (Manual) 5 Eosinophils % (Manual) 4 Basophils % (Manual) 1 Abs Neuts (Manual) 4.1 Lymphocytes # (Manual) 2.0 Monocytes # (Manual) 0.3 Eosinophils # (Manual) 0.3 Basophils # (Manual) 0.1 Platelet Estimate SLIGHTLY INCREASED Plt Morphology Comment NORMAL RBC Morphology NORMAL Medications Medications Current Medications Generic Name Dose Route Start Last Admin Trade Name Freq PRN Reason Stop Dose Admin Acetaminophen 650 mg 10/23/20 22:12 10/26/20 12:03 Acetaminophen 325 Mg Tablet PO 650 mg Q6H PRN Administration Headache/Pain Mild Scale (1-3) Al Hydroxide/Mg Hydroxide 30 ml 10/23/20 22:12 Magnesium Hydrox/Alum Hydrox 30 Ml Oral.Susp PO Q6H PRN Heartburn/Nausea Clonazepam 0.5 mg 10/24/20 21:00 10/26/20 08:36 Clonazepam 0.5 Mg Tablet PO 0.5 mg BID CHARLIE Administration Clonazepam 0.5 mg 10/26/20 15:08 10/26/20 15:35 Clonazepam 0.5 Mg Tablet PO 0.5 mg Q4H PRN Administration Anxiety Haloperidol 2 mg 10/23/20 12:06 10/26/20 12:02 Haloperidol 1 Mg Tablet PO 2 mg Q6H PRN Administration agitation Hydroxyzine HCl 25 mg 10/23/20 22:12 Hydroxyzine Hcl 25 Mg Tablet PO BEDTIME PRN Anxiety Magnesium Hydroxide 30 ml 10/23/20 22:12 Milk Of Magnesia 30 Ml Oral.Susp PO DAILY PRN Constipation Olanzapine 5 mg 10/23/20 21:00 10/26/20 08:37 Olanzapine 5 Mg Tablet PO 5 mg BID CHARLIE Administration Trazodone HCl 50 mg 10/23/20 22:12 Trazodone Hcl 50 Mg Tablet PO BEDTIME PRN Insomnia Allergies Allergies Allergy/AdvReac Type Severity Reaction Status Date / Time lorazepam [From Ativan] AdvReac Headache Verified 10/22/20 19:11 Assessment & Plan Assessment & Plan (1) Acute psychosis: Status: Acute Code(s): F23 - Brief psychotic disorder (2) Bipolar 1 disorder: Status: Acute Code(s): F31.9 - Bipolar disorder, unspecified Assessment and Plan: CT current plan Collateral information from provider in [place] Greater than 50% of the session was spent on counseling and/or coordination of care Reason for contiued inpatient stay Substantial Risk for: harm to others, inability to function and rapid decompensation
[2020-10-26 18:00] VITALS: BP 113/64; PULSE 68; RESP 18
[2020-10-27 06:35] VITALS: BP 119/75; PULSE 68; RESP 16; TEMP 36.9; O2SAT 97
[2020-10-27] MEDS: clonazePAM 0.5 MG TABLET PO ×3 (08:44→21:27)
[2020-10-27] MEDS: OLANZapine 5 MG TABLET PO ×2 (08:44→21:28)
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
[2020-10-27 16:05] VITALS: BP 130/78; PULSE 92; TEMP 36.8
[2020-10-27] MEDS: HaloperidoL 1 MG TABLET 2 MG PO (16:21)
[2020-10-27] MEDS: Acetaminophen 325 MG TABLET 650 MG PO (20:28)
[2020-10-28 06:35] VITALS: BP 142/83; PULSE 71; RESP 18; TEMP 36.4; O2SAT 97
[2020-10-28] MEDS: clonazePAM 0.5 MG TABLET PO ×4 (06:41→21:32)
[2020-10-28] MEDS: HaloperidoL 1 MG TABLET 2 MG PO ×2 (06:41→12:38)
[2020-10-28] MEDS: OLANZapine 5 MG TABLET PO ×2 (08:41→21:32)
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
[2020-10-28 17:07] VITALS: BP 131/82; PULSE 97; RESP 18; TEMP 37.2
[2020-10-28] MEDS: Acetaminophen 325 MG TABLET 650 MG PO (17:31)
[2020-10-29 06:20] VITALS: BP 131/82; PULSE 90; RESP 18; TEMP 37.2; O2SAT 98
[2020-10-29] MEDS: clonazePAM 0.5 MG TABLET PO ×2 (08:50→20:15)
[2020-10-29] MEDS: OLANZapine 5 MG TABLET PO (08:50)
[2020-10-29 10:24] LABS: Estimated Average Glucose 94 mg/dL; Hemoglobin A1c % 4.9 %
[2020-10-29 10:25] LABS: Cholesterol 158 mg/dL; HDL Cholesterol 45 mg/dL; LDL Cholesterol Calculated 95 mg/dl; Triglycerides 92 mg/dL
[2020-10-29] MEDS: Acetaminophen 325 MG TABLET 650 MG PO (10:53)
[2020-10-29] MEDS: HaloperidoL 1 MG TABLET 2 MG PO ×2 (10:53→17:50)
--- NOTE | 2020-10-29 13:51 | HO.PSYCHPN ---
Subjective Subjective Reason For Visit: PSYCHOSIS Interim History: Angélica less guarded, able to briefly see concerns about her ability to function and parent as well as labile mood. She denies SI/HI. She reports sleeping better. She has agreed to continue medications. She denies any side effects. There is some paranoia noted in that pt continue at times to report that trying to keep kids and not help financially. No behavioral concerns. Review of Systems Review of Systems Constitutional: No Fever, No Chills ENT/Mouth: No Ear Pain, No Nasal Congestion, No sore throat Eyes: No Eye Pain, No Swelling, No Redness Cardiovascular: No Chest Pain, No SOB Respiratory: No Cough, No Sputum, No Dyspnea Gastrointestinal: No Nausea, No Vomiting, No Diarrhea, No Hematochezia, No Melena Genitourinary: No Dysuria, No Urinary Frequency, No Hematuria Musculoskeletal: No Myalgias Skin: No Skin Lesions, No rash Neuro: No Weakness, No Numbness, No Paresthesias, No Dizziness, No Headache Psych: positive Anxiety, positive Depression, positive bryce, no SI/HI Heme/Lymph: No Lymphadenopathy Endocrine: No Polyuria, No Polydipsia Yes all other systems are reviewed and are negative Constitutional: Reports daytime sleepiness and Reports fatigue Reports Normal hearing present and Denies dizziness Cardiovascular: Denies chest pain, Denies chest pain with activity, Denies rapid heart rate and Denies dyspnea Respiratory: Denies chest congestion, Denies cough and Denies dyspnea Gastrointestinal: Denies constipation and Denies diarrhea Reports Normal hearing present, Denies Neuro-related abnormal movements, Denies burning sensations and Denies dizziness Endocrine: Reports fatigue Mental Status Exam Mental Status Exam Narrative: Appearance: wearing hospital gown, poor hygiene, disheveled Behavior: guarded and irritable Psychomotor: no agitation or retardation noted Speech: clear, normal rate/rhythm/volume, spontaneous TP: tangential TC: perseverance on somatic concerns, paranoid delusions thinks she is being followed, conspiring against her. Mood: okay Affect:irritable SI:denies HI:denies AH/VH:denies Delusions:paranoid delusions Insight/judgment:impaired x 2 Memory/cog: alert oriented x 3.impaired secondary to psychiatric symptoms. Diagnostics Vital Signs (24Hr): Vital Signs - 24 hr 10/29/20 16:36 10/30/20 06:30 Temperature 98.8 F 98.2 F Pulse Rate 113 H 88 Respiratory Rate 18 16 Blood Pressure 136/86 123/79 Pulse Oximetry 98 97 Body Mass Index 23.7 Labs Results: 10/25/20 07:29 10/23/20 02:52 Labs: Laboratory Results - last 48 hr 10/29/20 10/29/20 10/30/20 09:45 09:45 09:37 Estimat Average Glucose 94 Hemoglobin A1c % 4.9 Triglycerides 92 Cholesterol 158 LDL Cholesterol, Calc 95 HDL Cholesterol 45 COVID-19 ([facility]) Negative COVID-19 Clin Com See Note Medications Medications Current Medications Generic Name Dose Route Start Last Admin Trade Name Freq PRN Reason Stop Dose Admin Acetaminophen 650 mg 10/23/20 22:12 10/30/20 10:02 Acetaminophen 325 Mg Tablet PO 650 mg Q6H PRN Administration Headache/Pain Mild Scale (1-3) Al Hydroxide/Mg Hydroxide 30 ml 10/23/20 22:12 Magnesium Hydrox/Alum Hydrox 30 Ml Oral.Susp PO Q6H PRN Heartburn/Nausea Clonazepam 0.5 mg 10/24/20 21:00 10/30/20 09:15 Clonazepam 0.5 Mg Tablet PO 0.5 mg BID CHARLIE Administration Clonazepam 0.5 mg 10/26/20 15:08 10/28/20 12:38 Clonazepam 0.5 Mg Tablet PO 0.5 mg Q4H PRN Administration Anxiety Haloperidol 2 mg 10/23/20 12:06 10/30/20 12:51 Haloperidol 1 Mg Tablet PO 2 mg Q6H PRN Administration agitation Hydroxyzine HCl 25 mg 10/23/20 22:12 Hydroxyzine Hcl 25 Mg Tablet PO BEDTIME PRN Anxiety Magnesium Hydroxide 30 ml 10/23/20 22:12 Milk Of Magnesia 30 Ml Oral.Susp PO DAILY PRN Constipation Olanzapine 10 mg 10/29/20 21:00 10/29/20 20:15 Olanzapine 10 Mg Tablet PO 10 mg BEDTIME CHARLIE Administration Olanzapine 5 mg 10/30/20 09:00 10/30/20 09:16 Olanzapine 5 Mg Tablet PO 5 mg DAILY CHARLIE Administration Trazodone HCl 50 mg 10/23/20 22:12 Trazodone Hcl 50 Mg Tablet PO BEDTIME PRN Insomnia Allergies Allergies Allergy/AdvReac Type Severity Reaction Status Date / Time lorazepam [From Ativan] AdvReac Headache Verified 10/22/20 19:11 Assessment & Plan Assessment & Plan (1) Bipolar disorder with psychotic features: Status: Acute Code(s): F31.9 - Bipolar disorder, unspecified Assessment and Plan: 1. Increase olanzapine to 5mg po daily and 10mg po qhs Greater than 50% of the session was spent on counseling and/or coordination of care Reason for contiued inpatient stay Substantial Risk for: harm to self, harm to others and inability to function
[2020-10-29 16:36] VITALS: BP 136/86; PULSE 113; RESP 18; TEMP 37.1; O2SAT 98
[2020-10-29] MEDS: OLANZapine 10 MG TABLET PO (20:15)
[2020-10-30 06:30] VITALS: BP 123/79; PULSE 88; RESP 16; TEMP 36.8; O2SAT 97
[2020-10-30] MEDS: HaloperidoL 1 MG TABLET 2 MG PO ×3 (06:45→19:03)
[2020-10-30] MEDS: clonazePAM 0.5 MG TABLET PO ×2 (09:15→22:10)
[2020-10-30] MEDS: OLANZapine 5 MG TABLET PO (09:16)
[2020-10-30] MEDS: Acetaminophen 325 MG TABLET 650 MG PO (10:02)
[2020-10-30 10:07] LABS: COVID-19 Test Negative (Negative); IDNOW Serial# 9DD0AD1C
--- NOTE | 2020-10-30 13:53 | HO.PSYCHPN ---
Subjective Subjective Date of Service: 10/30/20 Reason For Visit: PSYCHOSIS Interim History: Angélica reports sleeping and eating better. She is slightly less paranoid and guarded but continues to minimize events leading to this admission. She is taking medications as prescribed. She denies any side effects. She denies VH/AH. Some residual paranoia noted but less intensity. Review of Systems Review of Systems Constitutional: No Fever, No Chills ENT/Mouth: No Ear Pain, No Nasal Congestion, No sore throat Eyes: No Eye Pain, No Swelling, No Redness Cardiovascular: No Chest Pain, No SOB Respiratory: No Cough, No Sputum, No Dyspnea Gastrointestinal: No Nausea, No Vomiting, No Diarrhea, No Hematochezia, No Melena Genitourinary: No Dysuria, No Urinary Frequency, No Hematuria Musculoskeletal: No Myalgias Skin: No Skin Lesions, No rash Neuro: No Weakness, No Numbness, No Paresthesias, No Dizziness, No Headache Psych: positive Anxiety, positive Depression, positive bryce, no SI/HI Heme/Lymph: No Lymphadenopathy Endocrine: No Polyuria, No Polydipsia Yes all other systems are reviewed and are negative Constitutional: Reports daytime sleepiness and Reports fatigue Reports Normal hearing present and Denies dizziness Cardiovascular: Denies chest pain, Denies chest pain with activity, Denies rapid heart rate and Denies dyspnea Respiratory: Denies chest congestion, Denies cough and Denies dyspnea Gastrointestinal: Denies constipation and Denies diarrhea Reports Normal hearing present, Denies Neuro-related abnormal movements, Denies burning sensations and Denies dizziness Endocrine: Reports fatigue Mental Status Exam Mental Status Exam Narrative: Appearance: wearing hospital gown, poor hygiene, disheveled Behavior: guarded and irritable Psychomotor: no agitation or retardation noted Speech: clear, normal rate/rhythm/volume, spontaneous TP: tangential TC: perseverance on somatic concerns, less paranoid delusions thinks she is being followed, conspiring against her. Mood: okay Affect:less irritable SI:denies HI:denies AH/VH:denies Delusions:paranoid delusions Insight/judgment:impaired x 2 Memory/cog: alert oriented x 3.impaired secondary to psychiatric symptoms. Diagnostics Vital Signs (24Hr): Vital Signs - 24 hr 10/29/20 16:36 10/30/20 06:30 Temperature 98.8 F 98.2 F Pulse Rate 113 H 88 Respiratory Rate 18 16 Blood Pressure 136/86 123/79 Pulse Oximetry 98 97 Body Mass Index 23.7 Labs Results: 10/25/20 07:29 10/23/20 02:52 Labs: Laboratory Results - last 48 hr 10/29/20 10/29/20 10/30/20 09:45 09:45 09:37 Estimat Average Glucose 94 Hemoglobin A1c % 4.9 Triglycerides 92 Cholesterol 158 LDL Cholesterol, Calc 95 HDL Cholesterol 45 COVID-19 ([facility]) Negative COVID-19 Clin Com See Note Medications Medications Current Medications Generic Name Dose Route Start Last Admin Trade Name Freq PRN Reason Stop Dose Admin Acetaminophen 650 mg 10/23/20 22:12 10/30/20 10:02 Acetaminophen 325 Mg Tablet PO 650 mg Q6H PRN Administration Headache/Pain Mild Scale (1-3) Al Hydroxide/Mg Hydroxide 30 ml 10/23/20 22:12 Magnesium Hydrox/Alum Hydrox 30 Ml Oral.Susp PO Q6H PRN Heartburn/Nausea Clonazepam 0.5 mg 10/24/20 21:00 10/30/20 09:15 Clonazepam 0.5 Mg Tablet PO 0.5 mg BID CHARLIE Administration Clonazepam 0.5 mg 10/26/20 15:08 10/28/20 12:38 Clonazepam 0.5 Mg Tablet PO 0.5 mg Q4H PRN Administration Anxiety Haloperidol 2 mg 10/23/20 12:06 10/30/20 12:51 Haloperidol 1 Mg Tablet PO 2 mg Q6H PRN Administration agitation Hydroxyzine HCl 25 mg 10/23/20 22:12 Hydroxyzine Hcl 25 Mg Tablet PO BEDTIME PRN Anxiety Magnesium Hydroxide 30 ml 10/23/20 22:12 Milk Of Magnesia 30 Ml Oral.Susp PO DAILY PRN Constipation Olanzapine 10 mg 10/29/20 21:00 10/29/20 20:15 Olanzapine 10 Mg Tablet PO 10 mg BEDTIME CHARLIE Administration Olanzapine 5 mg 10/30/20 09:00 10/30/20 09:16 Olanzapine 5 Mg Tablet PO 5 mg DAILY CHARLIE Administration Trazodone HCl 50 mg 10/23/20 22:12 Trazodone Hcl 50 Mg Tablet PO BEDTIME PRN Insomnia Allergies Allergies Allergy/AdvReac Type Severity Reaction Status Date / Time lorazepam [From Ativan] AdvReac Headache Verified 10/22/20 19:11 Assessment & Plan Assessment & Plan (1) Bipolar disorder with psychotic features: Status: Acute Code(s): F31.9 - Bipolar disorder, unspecified Assessment and Plan: 1. Increase olanzapine to 5mg po daily and 10mg po qhs Greater than 50% of the session was spent on counseling and/or coordination of care Reason for contiued inpatient stay Substantial Risk for: harm to self, harm to others and inability to function
[2020-10-30 17:00] VITALS: BP 108/71; PULSE 90; TEMP 36.1
[2020-10-30] MEDS: OLANZapine 10 MG TABLET PO (22:09)
[2020-10-31 06:45] VITALS: BP 115/72; PULSE 76; RESP 16; TEMP 36.8; O2SAT 98
[2020-10-31] MEDS: OLANZapine 5 MG TABLET PO (08:20)
[2020-10-31] MEDS: HaloperidoL 1 MG TABLET 2 MG PO (08:20)
[2020-10-31] MEDS: clonazePAM 0.5 MG TABLET PO ×2 (08:20→19:58)
--- NOTE | 2020-10-31 14:50 | HO.PSYCHPN ---
Subjective Subjective Date of Service: 10/31/20 Reason For Visit: PSYCHOSIS Interim History: Angélica presents as somewhat guarded. She reports that she is feeling fine and wants to go home today. Pt had visit with yesterday and pt continues to present with paranoia towards . She was verbally aggressive towards him blaming him for being in hospital and showing very little insight into reasons for coming to hospital including labile, paranoid symptoms. She reports sleeping and eating well. She denies SI/HI. She does appear overall calmer, less agitated but with residual paranoia. Review of Systems Review of Systems Constitutional: No Fever, No Chills ENT/Mouth: No Ear Pain, No Nasal Congestion, No sore throat Eyes: No Eye Pain, No Swelling, No Redness Cardiovascular: No Chest Pain, No SOB Respiratory: No Cough, No Sputum, No Dyspnea Gastrointestinal: No Nausea, No Vomiting, No Diarrhea, No Hematochezia, No Melena Genitourinary: No Dysuria, No Urinary Frequency, No Hematuria Musculoskeletal: No Myalgias Skin: No Skin Lesions, No rash Neuro: No Weakness, No Numbness, No Paresthesias, No Dizziness, No Headache Psych: positive Anxiety, positive Depression, positive bryce, no SI/HI Heme/Lymph: No Lymphadenopathy Endocrine: No Polyuria, No Polydipsia Yes all other systems are reviewed and are negative Constitutional: Reports daytime sleepiness and Reports fatigue Reports Normal hearing present and Denies dizziness Cardiovascular: Denies chest pain, Denies chest pain with activity, Denies rapid heart rate and Denies dyspnea Respiratory: Denies chest congestion, Denies cough and Denies dyspnea Gastrointestinal: Denies constipation and Denies diarrhea Reports Normal hearing present, Denies Neuro-related abnormal movements, Denies burning sensations and Denies dizziness Endocrine: Reports fatigue Mental Status Exam Mental Status Exam Narrative: Appearance: wearing hospital gown, poor hygiene, disheveled Behavior: guarded and irritable Psychomotor: no agitation or retardation noted Speech: clear, normal rate/rhythm/volume, spontaneous TP: tangential TC: perseverance on somatic concerns, less paranoid delusions thinks she is being followed, conspiring against her. Mood: okay Affect:less irritable SI:denies HI:denies AH/VH:denies Delusions:paranoid delusions Insight/judgment:impaired x 2 Memory/cog: alert oriented x 3.impaired secondary to psychiatric symptoms. Diagnostics Vital Signs (24Hr): Vital Signs - 24 hr 10/30/20 17:00 10/31/20 06:45 Temperature 96.9 F 98.2 F Pulse Rate 90 76 Respiratory Rate 16 Blood Pressure 108/71 115/72 Pulse Oximetry 98 Body Mass Index 23.7 Labs Results: 10/25/20 07:29 10/23/20 02:52 Labs: Laboratory Results - last 48 hr 10/30/20 09:37 COVID-19 ([facility]) Negative COVID-19 Clin Com See Note Medications Medications Current Medications Generic Name Dose Route Start Last Admin Trade Name Freq PRN Reason Stop Dose Admin Acetaminophen 650 mg 10/23/20 22:12 10/30/20 10:02 Acetaminophen 325 Mg Tablet PO 650 mg Q6H PRN Administration Headache/Pain Mild Scale (1-3) Al Hydroxide/Mg Hydroxide 30 ml 10/23/20 22:12 Magnesium Hydrox/Alum Hydrox 30 Ml Oral.Susp PO Q6H PRN Heartburn/Nausea Clonazepam 0.5 mg 10/24/20 21:00 10/31/20 08:20 Clonazepam 0.5 Mg Tablet PO 0.5 mg BID CHARLIE Administration Clonazepam 0.5 mg 10/26/20 15:08 10/28/20 12:38 Clonazepam 0.5 Mg Tablet PO 0.5 mg Q4H PRN Administration Anxiety Haloperidol 5 mg 10/31/20 14:29 Haloperidol 5 Mg Tablet PO Q6H PRN agitation Hydroxyzine HCl 25 mg 10/23/20 22:12 Hydroxyzine Hcl 25 Mg Tablet PO BEDTIME PRN Anxiety Magnesium Hydroxide 30 ml 10/23/20 22:12 Milk Of Magnesia 30 Ml Oral.Susp PO DAILY PRN Constipation Olanzapine 5 mg 10/30/20 09:00 10/31/20 08:20 Olanzapine 5 Mg Tablet PO 5 mg DAILY CHARLIE Administration Olanzapine 15 mg 10/31/20 21:00 Olanzapine 7.5 Mg Tablet PO BEDTIME CHARLIE Trazodone HCl 50 mg 10/23/20 22:12 Trazodone Hcl 50 Mg Tablet PO BEDTIME PRN Insomnia Allergies Allergies Allergy/AdvReac Type Severity Reaction Status Date / Time lorazepam [From Ativan] AdvReac Headache Verified 10/22/20 19:11 Assessment & Plan Assessment & Plan (1) Bipolar disorder with psychotic features: Status: Acute Code(s): F31.9 - Bipolar disorder, unspecified Assessment and Plan: 1. Increase olanzapine to 5mg po daily and 15mg po qhs Greater than 50% of the session was spent on counseling and/or coordination of care Reason for contiued inpatient stay Substantial Risk for: harm to others and inability to function
[2020-10-31] MEDS: HaloperidoL 5 MG TABLET PO (16:00)
[2020-10-31 18:00] VITALS: BP 135/76; PULSE 85; TEMP 36.4
[2020-10-31] MEDS: Acetaminophen 325 MG TABLET 650 MG PO (18:07)
[2020-10-31] MEDS: OLANZapine 7.5 MG TABLET 15 MG PO (19:58)
[2020-11-01 06:00] VITALS: BP 135/82; PULSE 96; TEMP 36.1
[2020-11-01] MEDS: OLANZapine 5 MG TABLET PO (08:21)
[2020-11-01] MEDS: clonazePAM 0.5 MG TABLET PO ×2 (08:22→16:03)
[2020-11-01] MEDS: Acetaminophen 325 MG TABLET 650 MG PO (08:25)
[2020-11-01 08:47] LABS: TSH reflex Free T4 1.29 uIU/mL (0.32-4.0)
--- NOTE | 2020-11-01 10:42 | HO.PSYCHPN ---
Subjective Subjective Date of Service: 11/01/20 Reason For Visit: PSYCHOSIS Interim History: Pt focused on going home. Little insight. Angélica presents as somewhat guarded. pt continues to present with paranoia towards . She reports sleeping and eating well. She denies SI/HI. She does appear overall calmer, less agitated but with residual paranoia. Medication Compliance: Yes Review of Systems Review of Systems Constitutional: No Fever, No Chills ENT/Mouth: No Ear Pain, No Nasal Congestion, No sore throat Eyes: No Eye Pain, No Swelling, No Redness Cardiovascular: No Chest Pain, No SOB Respiratory: No Cough, No Sputum, No Dyspnea Gastrointestinal: No Nausea, No Vomiting, No Diarrhea, No Hematochezia, No Melena Genitourinary: No Dysuria, No Urinary Frequency, No Hematuria Musculoskeletal: No Myalgias Skin: No Skin Lesions, No rash Neuro: No Weakness, No Numbness, No Paresthesias, No Dizziness, No Headache Psych: positive Anxiety, positive Depression, positive bryce, no SI/HI Heme/Lymph: No Lymphadenopathy Endocrine: No Polyuria, No Polydipsia Yes all other systems are reviewed and are negative Constitutional: Reports daytime sleepiness and Reports fatigue Reports Normal hearing present and Denies dizziness Cardiovascular: Denies chest pain, Denies chest pain with activity, Denies rapid heart rate and Denies dyspnea Respiratory: Denies chest congestion, Denies cough and Denies dyspnea Gastrointestinal: Denies constipation and Denies diarrhea Reports Normal hearing present, Denies Neuro-related abnormal movements, Denies burning sensations and Denies dizziness Endocrine: Reports fatigue Mental Status Exam Mental Status Exam Narrative: Appearance: wearing hospital gown, poor hygiene, disheveled Behavior: guarded and irritable Psychomotor: no agitation or retardation noted Speech: clear, normal rate/rhythm/volume, spontaneous TP: tangential TC: perseverance on somatic concerns, less paranoid delusions thinks she is being followed, conspiring against her. Mood: okay Affect:less irritable SI:denies HI:denies AH/VH:denies Delusions:paranoid delusions Insight/judgment:impaired x 2 Memory/cog: alert oriented x 3.impaired secondary to psychiatric symptoms. Patient Appearance: Disheveled Level of Consciousness: Appropriate Patient Behavior: Guarded, Talkative, Suspicious, Restless, Anxious and Confused Mood Description: Suspicious, Anxious, Labile, Nervous and Apprehensive Affect Description: Suspicious and Labile Patient Cognition Impaired: No Ability to Follow Directions: Poor Speech Pattern: Perseverating, Rambling and Pressured Memory Description: Intact Judgement: Fair (fair-poor) Diagnostics Vital Signs (24Hr): Vital Signs - 24 hr 10/31/20 18:00 Temperature 97.6 F Pulse Rate 85 Blood Pressure 135/76 Body Mass Index 23.7 Labs Results: 10/25/20 07:29 10/23/20 02:52 Labs: Laboratory Results - last 48 hr 11/01/20 11/01/20 07:41 07:41 Total Creatine Kinase 25 L TSH 1.29 Medications Medications Current Medications Generic Name Dose Route Start Last Admin Trade Name Freq PRN Reason Stop Dose Admin Acetaminophen 650 mg 10/23/20 22:12 11/01/20 08:25 Acetaminophen 325 Mg Tablet PO 650 mg Q6H PRN Administration Headache/Pain Mild Scale (1-3) Al Hydroxide/Mg Hydroxide 30 ml 10/23/20 22:12 Magnesium Hydrox/Alum Hydrox 30 Ml Oral.Susp PO Q6H PRN Heartburn/Nausea Clonazepam 0.5 mg 10/24/20 21:00 11/01/20 08:22 Clonazepam 0.5 Mg Tablet PO 0.5 mg BID CHARLIE Administration Clonazepam 0.5 mg 10/26/20 15:08 10/28/20 12:38 Clonazepam 0.5 Mg Tablet PO 0.5 mg Q4H PRN Administration Anxiety Haloperidol 5 mg 10/31/20 14:29 10/31/20 16:00 Haloperidol 5 Mg Tablet PO 5 mg Q6H PRN Administration agitation Hydroxyzine HCl 25 mg 10/23/20 22:12 Hydroxyzine Hcl 25 Mg Tablet PO BEDTIME PRN Anxiety Magnesium Hydroxide 30 ml 10/23/20 22:12 Milk Of Magnesia 30 Ml Oral.Susp PO DAILY PRN Constipation Olanzapine 5 mg 10/30/20 09:00 11/01/20 08:21 Olanzapine 5 Mg Tablet PO 5 mg DAILY CHARLIE Administration Olanzapine 15 mg 10/31/20 21:00 10/31/20 19:58 Olanzapine 7.5 Mg Tablet PO 15 mg BEDTIME CHARLIE Administration Trazodone HCl 50 mg 10/23/20 22:12 Trazodone Hcl 50 Mg Tablet PO BEDTIME PRN Insomnia Allergies Allergies Allergy/AdvReac Type Severity Reaction Status Date / Time lorazepam [From Ativan] AdvReac Headache Verified 10/22/20 19:11 Assessment & Plan Assessment & Plan (1) Bipolar disorder with psychotic features: Status: Acute Code(s): F31.9 - Bipolar disorder, unspecified Assessment and Plan: 1. continue olanzapine to 5mg po daily and 15mg po qhs Greater than 50% of the session was spent on counseling and/or coordination of care Reason for contiued inpatient stay Substantial Risk for: inability to function and med/psych decompensation
[2020-11-01] MEDS: HaloperidoL 5 MG TABLET PO ×2 (11:09→16:59)
[2020-11-01 18:00] VITALS: BP 123/71; PULSE 100; TEMP 37
[2020-11-02] MEDS: clonazePAM 0.5 MG TABLET PO ×5 (04:23→20:20)
[2020-11-02 07:45] VITALS: BP 124/84; PULSE 120; RESP 16; TEMP 36.6; O2SAT 99
[2020-11-02] MEDS: Acetaminophen 325 MG TABLET 650 MG PO ×2 (08:24→20:19)
[2020-11-02] MEDS: OLANZapine 5 MG TABLET PO (08:42)
[2020-11-02] MEDS: HaloperidoL 5 MG TABLET PO ×2 (16:50→20:20)
--- NOTE | 2020-11-02 17:35 | HO.PSYCHPN ---
Subjective Subjective Date of Service: 11/02/20 Reason For Visit: PSYCHOSIS Interim History: Pt focused on going home. Little insight. Angélica presents as somewhat guarded.pt became anxious and evasive with direct questions about what brought her to hospital. She was vague and made confused statements then proceeded to walk out of room without acknowledging. pt continues to present with paranoia towards . She reports sleeping and eating well. She denies SI/HI. She does appear overall calmer, less agitated but with residual paranoia. Review of Systems Review of Systems Constitutional: No Fever, No Chills ENT/Mouth: No Ear Pain, No Nasal Congestion, No sore throat Eyes: No Eye Pain, No Swelling, No Redness Cardiovascular: No Chest Pain, No SOB Respiratory: No Cough, No Sputum, No Dyspnea Gastrointestinal: No Nausea, No Vomiting, No Diarrhea, No Hematochezia, No Melena Genitourinary: No Dysuria, No Urinary Frequency, No Hematuria Musculoskeletal: No Myalgias Skin: No Skin Lesions, No rash Neuro: No Weakness, No Numbness, No Paresthesias, No Dizziness, No Headache Psych: positive Anxiety, positive Depression, positive bryce, no SI/HI Heme/Lymph: No Lymphadenopathy Endocrine: No Polyuria, No Polydipsia Yes all other systems are reviewed and are negative Constitutional: Reports daytime sleepiness and Reports fatigue Reports Normal hearing present and Denies dizziness Cardiovascular: Denies chest pain, Denies chest pain with activity, Denies rapid heart rate and Denies dyspnea Respiratory: Denies chest congestion, Denies cough and Denies dyspnea Gastrointestinal: Denies constipation and Denies diarrhea Reports Normal hearing present, Denies Neuro-related abnormal movements, Denies burning sensations and Denies dizziness Endocrine: Reports fatigue Mental Status Exam Mental Status Exam Narrative: Appearance: wearing hospital gown, poor hygiene, disheveled Behavior: guarded and irritable Psychomotor: no agitation or retardation noted Speech: clear, normal rate/rhythm/volume, spontaneous TP: tangential TC: perseverance on somatic concerns, less paranoid delusions thinks she is being followed, conspiring against her. Mood: okay Affect:less irritable SI:denies HI:denies AH/VH:denies Delusions:paranoid delusions Insight/judgment:impaired x 2 Memory/cog: alert oriented x 3.impaired secondary to psychiatric symptoms. Patient Appearance: Disheveled Level of Consciousness: Appropriate Patient Behavior: Guarded, Talkative, Suspicious, Restless, Anxious and Confused Mood Description: Suspicious, Anxious, Labile, Nervous and Apprehensive Affect Description: Suspicious and Labile Patient Cognition Impaired: No Ability to Follow Directions: Poor Speech Pattern: Perseverating, Rambling and Pressured Memory Description: Episodic Impaired Judgement: Fair Diagnostics Vital Signs (24Hr): Vital Signs - 24 hr 11/01/20 18:00 11/02/20 07:45 Temperature 98.6 F 97.8 F Pulse Rate 100 120 H Respiratory Rate 16 Blood Pressure 123/71 124/84 Pulse Oximetry 99 Body Mass Index 23.7 Labs Results: 10/25/20 07:29 10/23/20 02:52 Labs: Laboratory Results - last 48 hr 11/01/20 11/01/20 07:41 07:41 Total Creatine Kinase 25 L TSH 1.29 Medications Medications Current Medications Generic Name Dose Route Start Last Admin Trade Name Freq PRN Reason Stop Dose Admin Acetaminophen 650 mg 10/23/20 22:12 11/02/20 08:24 Acetaminophen 325 Mg Tablet PO 650 mg Q6H PRN Administration Headache/Pain Mild Scale (1-3) Al Hydroxide/Mg Hydroxide 30 ml 10/23/20 22:12 Magnesium Hydrox/Alum Hydrox 30 Ml Oral.Susp PO Q6H PRN Heartburn/Nausea Clonazepam 0.5 mg 10/26/20 15:08 11/02/20 11:04 Clonazepam 0.5 Mg Tablet PO 0.5 mg Q4H PRN Administration Anxiety Clonazepam 0.5 mg 11/02/20 15:00 11/02/20 14:41 Clonazepam 0.5 Mg Tablet PO 0.5 mg TID CHARLIE Administration Haloperidol 5 mg 10/31/20 14:29 11/01/20 16:59 Haloperidol 5 Mg Tablet PO 5 mg Q6H PRN Administration agitation Haloperidol 5 mg 11/02/20 17:00 11/02/20 16:50 Haloperidol 5 Mg Tablet PO 5 mg 1700 CHARLIE Administration Hydroxyzine HCl 25 mg 10/23/20 22:12 Hydroxyzine Hcl 25 Mg Tablet PO BEDTIME PRN Anxiety Magnesium Hydroxide 30 ml 10/23/20 22:12 Milk Of Magnesia 30 Ml Oral.Susp PO DAILY PRN Constipation Olanzapine 5 mg 10/30/20 09:00 11/02/20 08:42 Olanzapine 5 Mg Tablet PO 5 mg DAILY CHARLIE Administration Olanzapine 15 mg 10/31/20 21:00 11/01/20 22:18 Olanzapine 7.5 Mg Tablet PO Not Given BEDTIME CHARLIE Trazodone HCl 50 mg 10/23/20 22:12 Trazodone Hcl 50 Mg Tablet PO BEDTIME PRN Insomnia Allergies Allergies Allergy/AdvReac Type Severity Reaction Status Date / Time lorazepam [From Ativan] AdvReac Headache Verified 10/22/20 19:11 Assessment & Plan Assessment & Plan (1) Bipolar disorder with psychotic features: Status: Acute Code(s): F31.9 - Bipolar disorder, unspecified Assessment and Plan: 1. continue olanzapine to 5mg po daily and 15mg po qhs trial of schedule haldol 5 mg at 5 pm as pt states very helpful to her- feels calmer after taking Greater than 50% of the session was spent on counseling and/or coordination of care Reason for contiued inpatient stay Substantial Risk for: inability to function, rapid decompensation and med/psych decompensation
[2020-11-02 18:00] VITALS: BP 123/76; PULSE 81; TEMP 36.3
[2020-11-02] MEDS: OLANZapine 7.5 MG TABLET 15 MG PO (20:19)
[2020-11-03 06:10] VITALS: BP 130/69; PULSE 100; RESP 18; TEMP 37.1; O2SAT 95
[2020-11-03] MEDS: OLANZapine 5 MG TABLET PO (08:47)
[2020-11-03] MEDS: clonazePAM 0.5 MG TABLET PO ×2 (08:48→13:39)
[2020-11-03] MEDS: Acetaminophen 325 MG TABLET 650 MG PO (09:07)
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
== END 2020-11-03 14:05 | disposition home or self-care (01) | DRG 885 ==
LOC: HO.ED 10-23 19:08 → HO.PM5 10-23 23:35
PROVIDERS: Nurse Practitioner Family; Admitting Provider Psychiatry & Neurology Psychiatry; Emergency Provider Emergency Medicine Emergency Medical Services; Visit Provider Social Worker
DX: F31.9 Bipolar disorder, unspecified (principal); Z20.822 Contact with and (suspected) exposure to COVID-19; Z79.899 Other long term (current) drug therapy
CPT/HCPCS: 36415; 80048; 80061; 80143; 80179; 80307; 80320; 81025; 82550; 82607; 82746; 83036; 84443; 85007; 85025; 85027; 86618; 86780; 87389; 87635; 99285; Q0163

== ENCOUNTER 2023-01-13 18:27 | Inpatient (IN) | payer OTHER, SELFPAY ==
[2023-01-13 18:30] VITALS: PULSE 88; TEMP 37.2; O2SAT 97
[2023-01-13] MEDS: Acetaminophen 325 MG TABLET 650 MG PO (18:53)
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
[2023-01-14] MEDS: Acetaminophen 325 MG TABLET 650 MG PO ×2 (05:31→11:35)
[2023-01-14] MEDS: clonazePAM 1 MG TABLET PO (05:32)
[2023-01-14 08:15] LABS: Estimated Average Glucose 105 mg/dL; Hemoglobin A1c % 5.3 %
[2023-01-14 08:24] LABS: Cholesterol 132 mg/dL; HDL Cholesterol 37 mg/dL; LDL Cholesterol Calculated 70 mg/dl; Triglycerides 127 mg/dL
[2023-01-14 08:35] LABS: Free T4 (Free Thyroxine) 0.82 ng/dL (0.71-1.85); Thyroid Stimulating Hormone 0.58 uIU/mL (0.32-4.0)
[2023-01-14 08:51] LABS: Folate 3.3 ng/mL (> or = 4.0); Vitamin B12 474 pg/mL (200-900)
[2023-01-14 09:14] VITALS: BP 134/75; PULSE 107; RESP 18; TEMP 36.1; O2SAT 97
--- NOTE | 2023-01-14 09:29 | P.HPPS_ITS ---
HPI Date of Service: 01/14/23 Chief Complaint: Bipolar disorder w/ psychosis Sources of Information: patient interviewed, chart reviewed and crisis/core team assessment reviewed HPI Subjective Notes: Freire Warning and Conditional Voluntary Narrative: Mrs. Peralta is a 47 year-old woman with hx of Bipolar Disorder who self presented to [facility] ED reporting feeling anxious, having nausea, not well after discharged from W5 (psychiatric unit at [facility]) days prior. Pt is known to through previous admission back in 2020 when pt was treated for episode of bryce. On the unit, pt reports she felt ready when discharged from [facility]. Pt reports she has been going through tumultuous divorce, currently has physical custody of her children. She reports she went to [facility] ED at suggestion of her mother as pt was more anxious, not sleeping for few days. Pt denies suicidal or homicidal ideation. Pt initially somewhat irritable as she states last admission here she was over sedated and did not think her symptoms were due to psychiatric illness but more so due to lyme and other multiple autoimmune conditions for which she receives treatment in [place]. Pt reports she has been taking combination of adderall, xanax for the past year or so. She reports she used seroquel at bedtime but it was too sedating. She reports combination of depakote and olanzapine was too sedating too. She denies VH/AH. 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 trials: adderall, xanax, risperidone Medical Evaluation Reviewed: Yes [facility] Medical History ADHD Anxiety Ethan Marrero infection Lyme disease Mast cell activation [place] exposure PTSD (post-traumatic stress disorder) Diagnostics Vital Signs (24Hr): Vital Signs - 24 hr 01/13/23 18:30 01/14/23 09:14 Temperature 98.9 F 96.9 F Pulse Rate 88 107 H Respiratory Rate 18 Blood Pressure 134/75 Pulse Oximetry 97 97 Oxygen Delivery Method Room Air Room Air Labs Labs: Laboratory Results - last 48 hr 01/14/23 01/14/23 01/14/23 07:44 07:44 07:44 Estimat Average Glucose 105 Hemoglobin A1c % 5.3 Magnesium 2.0 Triglycerides 127 Cholesterol 132 LDL Cholesterol, Calc 70 HDL Cholesterol 37 Vitamin B12 474 Folate 3.3 L TSH 0.58 Free T4 0.82 Meds/Allergies Meds Home Medications Medication Instructions Recorded Confirmed Type alprazolam 1 mg tablet (Xanax) 1 mg PO TID PRN Anxiety 01/13/23 01/13/23 History amphetamine 10 mg tablet, See Rx Instructions .Route .COMPLEX 01/13/23 01/13/23 History immediate and extended release 24 hour clonazepam 1 mg tablet 1 mg PO TID 01/13/23 01/13/23 History dextroamphetamine-amphetamine 20 20 mg PO DAILY 01/13/23 01/13/23 History mg tablet dextroamphetamine-amphetamine ER 20 mg PO DAILY 01/13/23 01/13/23 History 20 mg 24hr capsule,extend release (Adderall XR) gabapentin 300 mg capsule 300 mg PO TID 01/13/23 01/13/23 History levothyroxine 75 mcg tablet 75 mcg PO DAILY 01/13/23 01/13/23 History lisdexamfetamine 50 mg capsule 50 mg PO DAILY 01/13/23 01/13/23 History (Vyvanse) propranolol 10 mg tablet 10 mg PO TID 01/13/23 01/13/23 History quetiapine 100 mg tablet 100 mg PO BEDTIME 01/13/23 01/13/23 History sertraline 25 mg tablet (Zoloft) 25 mg PO DAILY 01/13/23 01/13/23 History Allergies Allergies Allergy/AdvReac Type Severity Reaction Status Date / Time gluten AdvReac Gastrointestinal Verified 01/13/23 23:29 Upset lorazepam [From Ativan] AdvReac Headache Verified 10/22/20 19:11 wheat AdvReac Gastrointestinal Verified 01/13/23 23:29 Upset Mental Status Exam Mental Status Exam Narrative: Appearance: casually groomed, fair hygiene (waiting to take a shower), jaw pain Behavior: guarded at first Psychomotor: no agitation or retardation noted Speech: clear, regular rate, hyperverbal but not pressured, spontaneous TP: tangential TC: feeling tired, anxious, needing to rest Mood: tired, anxious Affect: congruent, dysphoric SI: denies HI: denies VH/AH: none Delusions: no delusional content noted or reported Insight/judgment: fair x 2. Memory/cog: alert, oriented x 3. grossly intact to conversational testing. Assessment & Plan Assessment & Plan (1) Bipolar 1 disorder, manic, mild: Status: Acute Code(s): F31.11 - Bipolar disorder, current episode manic without psychotic features, mild Plan Mrs. Peralta is a 47 year-old woman with hx of Bipolar Disorder who self presented to [facility] ED reporting feeling tired, with nausea, not sleeping, more anxious. Pt was recently discharged from [facility] after 3 week admission. Pt presents with tangential speech, hyperverbal but not pressured. No SI/HI. No psychosis or delusional content noted or reported. Pt reports not sleeping well. We discussed risks, benefits and alternative treatment options. Pt reports her medications have been helpful including combination or stimulant and xanax. Pt not open to other medication options that may include a mood stabilizer even if less sedation options than depakote. She does not appear at imminent risk of harm to self or others at this point. PLAN 1. Admit to M5, CV 15 minutes checks for safety 2. continue lower dose of adderall- at this point pt reports she uses for physical fatigue. She has not slept in days so in agreement to reduce dose in order aid sleep. but explained that may worsen hypomania or bryce- which pt does not think she has. 3. Obtain collateral information 4. Aftercare plan Patient educated on: diagnosis and medication risk/benefits Reason for continued inpatient stay Substantial Risk for: inability to function Statement Statement: I have reviewed the history and physical and performed a pertinent examination on my patient. No changes have occurred unless specified. If the History and Physical was not performed prior to admission, the Hospitalist's service will be consulted for completing the admission physical. Time Spent With Patient Time: Total time managing care of this patient today ____ minutes.
[2023-01-14] MEDS: ALPRAZolam 0.5 MG TABLET 1 MG PO ×3 (11:35→19:51)
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
[2023-01-14] MEDS: Folic Acid 1 MG TABLET PO (14:21)
[2023-01-14] MEDS: Propranolol HCL 10 MG TABLET PO ×2 (14:21→19:50)
[2023-01-14] MEDS: Gabapentin 300 MG CAPSULE PO ×2 (14:21→19:50)
[2023-01-14 14:24] VITALS: BP 111/69; PULSE 104
[2023-01-14 18:00] VITALS: BP 112/68; PULSE 75; RESP 16; TEMP 36.6; O2SAT 98
[2023-01-14] MEDS: traZODone HCL 50 MG TABLET PO (19:51)
[2023-01-15] MEDS: Propranolol HCL 10 MG TABLET PO ×3 (08:33→19:56)
[2023-01-15] MEDS: Gabapentin 300 MG CAPSULE PO ×3 (08:33→19:56)
[2023-01-15] MEDS: ALPRAZolam 0.5 MG TABLET 1 MG PO ×3 (08:33→19:57)
[2023-01-15] MEDS: Folic Acid 1 MG TABLET PO (08:33)
[2023-01-15] MEDS: Dextroamphetamine/Amphetamine XR 10 MG CAP.ER.24H 20 MG PO (08:33)
[2023-01-15 08:38] VITALS: BP 111/73; PULSE 92; RESP 18; TEMP 36.1; O2SAT 97
--- NOTE | 2023-01-15 11:35 | P.PNPSI_ITS ---
Subjective Subjective Date of Service: 01/15/23 Reason For Visit: Bipolar disorder w/ psychosis Interim History: Patient seen and discussed. She reports she is slightly improving. Mostly isolating to her room. Denies SI/HI/AVH. Says sleep is better. Review of Systems Review of Systems Patient states that she has no acute medical complaints at this time Constitutional: Reports difficulty sleeping, Reports fatigue, Reports headache(s) and Reports lethargy Reports headache(s) Reports headache(s) Endocrine: Reports fatigue Mental Status Exam Mental Status Exam Narrative: Appearance: casually groomed, fair hygiene (waiting to take a shower), jaw pain Behavior: guarded at first Psychomotor: no agitation or retardation noted Speech: clear, regular rate, not pressured, spontaneous TP: tangential TC: feeling tired, anxious, needing to rest Mood: Slightly better Affect: congruent, dysphoric SI: denies HI: denies VH/AH: none Delusions: no delusional content noted or reported Insight/judgment: fair x 2. Memory/cog: alert, oriented x 3. grossly intact to conversational testing. Diagnostics Vital Signs (24Hr): Vital Signs - 24 hr 01/14/23 14:24 01/14/23 18:00 01/15/23 08:38 Temperature 97.8 F 97.0 F Pulse Rate 104 H 75 92 Respiratory Rate 16 18 Blood Pressure 111/69 112/68 111/73 Pulse Oximetry 98 97 Oxygen Delivery Method Room Air Room Air Labs Labs: Laboratory Results - last 48 hr 01/14/23 01/14/23 01/14/23 07:44 07:44 07:44 Estimat Average Glucose 105 Hemoglobin A1c % 5.3 Magnesium 2.0 Triglycerides 127 Cholesterol 132 LDL Cholesterol, Calc 70 HDL Cholesterol 37 Vitamin B12 474 Folate 3.3 L TSH 0.58 Free T4 0.82 Medications Medications Current Medications Acetaminophen (Acetaminophen 325 Mg Tablet) 650 mg PO Q6H PRN PRN Reason: Headache/Pain Mild Scale (1-3) Last Admin: 01/14/23 11:35 Dose: 650 mg Al Hydroxide/Mg Hydroxide (Magnesium Hydrox/Alum Hydrox 30 Ml Oral.Susp) 30 ml PO Q6H PRN PRN Reason: Heartburn/Nausea Alprazolam (Alprazolam 0.5 Mg Tablet) 1 mg PO TID [facility] Last Admin: 01/15/23 08:33 Dose: 1 mg Amphetamine/Dextroamphetamine (Dextroamphetamine/Amphetamine Xr 10 Mg Cap.Er.24h) 20 mg PO DAILY [facility] Last Admin: 01/15/23 08:33 Dose: 20 mg Benzocaine (Benzocaine 20 % Oral Gel 9 Gm Tube) 1 appl MUCOUS MEM Q4H PRN; Protocol PRN Reason: gum pain Folic Acid (Folic Acid 1 Mg Tablet) 1 mg PO DAILY [facility] Stop: 01/17/23 12:39 Last Admin: 01/15/23 08:33 Dose: 1 mg Gabapentin (Gabapentin 300 Mg Capsule) 300 mg PO TID CHARLIE Last Admin: 01/15/23 08:33 Dose: 300 mg Hydroxyzine HCl (Hydroxyzine Hcl 25 Mg Tablet) 25 mg PO Q6H PRN PRN Reason: Anxiety Magnesium Hydroxide (Milk Of Magnesia 30 Ml Oral.Susp) 30 ml PO DAILY PRN PRN Reason: Constipation Olanzapine (Olanzapine 5 Mg Tablet) 5 mg PO Q4H PRN PRN Reason: psychosis, bryce, agitation Ondansetron HCl (Ondansetron Odt 4 Mg Tab.Rapdis) 4 mg TRANSLINGU Q8H PRN PRN Reason: Nausea Propranolol HCl (Propranolol Hcl 10 Mg Tablet) 10 mg PO TID [facility]; Protocol Last Admin: 01/15/23 08:33 Dose: 10 mg Trazodone HCl (Trazodone Hcl 50 Mg Tablet) 50 mg PO BEDTIME PRN PRN Reason: Insomnia Last Admin: 01/14/23 19:51 Dose: 50 mg Allergies Allergies Allergy/AdvReac Type Severity Reaction Status Date / Time gluten AdvReac Gastrointestinal Verified 01/13/23 23:29 Upset lorazepam [From Ativan] AdvReac Headache Verified 10/22/20 19:11 wheat AdvReac Gastrointestinal Verified 01/13/23 23:29 Upset Assessment & Plan Assessment & Plan (1) Bipolar 1 disorder, manic, mild: Status: Acute Code(s): F31.11 - Bipolar disorder, current episode manic without psychotic features, mild Plan Mrs. Peralta is a 47 year-old woman with hx of Bipolar Disorder who self presented to [facility] ED reporting feeling tired, with nausea, not sleeping, more anxious. Pt was recently discharged from [facility] after 3 week admission. Pt presents with tangential speech, hyperverbal but not pressured. No SI/HI. No psychosis or delusional content noted or reported. Pt reports not sleeping well. We discussed risks, benefits and alternative treatment options. Pt reports her medications have been helpful including combination or stimulant and xanax. Pt not open to other medication options that may include a mood stabilizer even if less sedation options than depakote. She does not appear at imminent risk of harm to self or others at this point. PLAN 1. Admit to M5, CV 15 minutes checks for safety 2. continue lower dose of adderall- at this point pt reports she uses for physical fatigue. She has not slept in days so in agreement to reduce dose in order aid sleep. but explained that may worsen hypomania or bryce- which pt does not think she has. 3. Obtain collateral information 4. Aftercare plan 01/15: Continue current treatment plan. Reason for continued inpatient stay Substantial Risk for: harm to self, inability to function and rapid decompensation Time Spent With Patient Time: Total time managing care of this patient today ____ minutes.
[2023-01-15] MEDS: Benzocaine 20 % Oral Gel 9 GM TUBE 1 APPL MUCOUS MEM (12:47)
[2023-01-15 14:09] VITALS: BP 137/76; PULSE 104
[2023-01-15] MEDS: Ondansetron ODT 4 MG TAB.RAPDIS TRANSLINGU (17:17)
[2023-01-15] MEDS: Acetaminophen 325 MG TABLET 650 MG PO (17:17)
[2023-01-15 19:55] VITALS: BP 115/87; PULSE 87; TEMP 35.8
[2023-01-16] MEDS: Gabapentin 300 MG CAPSULE PO ×3 (08:02→20:28)
[2023-01-16] MEDS: Propranolol HCL 10 MG TABLET PO ×3 (08:02→20:28)
[2023-01-16] MEDS: Dextroamphetamine/Amphetamine XR 10 MG CAP.ER.24H 20 MG PO (08:02)
[2023-01-16] MEDS: ALPRAZolam 0.5 MG TABLET 1 MG PO ×3 (08:03→20:28)
[2023-01-16] MEDS: Folic Acid 1 MG TABLET PO (08:03)
[2023-01-16] MEDS: Acetaminophen 325 MG TABLET 650 MG PO ×2 (08:03→17:25)
[2023-01-16 08:05] VITALS: BP 129/78; PULSE 98; RESP 18; TEMP 36.6; O2SAT 98
[2023-01-16] MEDS: diphenhydrAMINE HCL 25 MG CAPSULE PO ×2 (11:37→17:26)
--- NOTE | 2023-01-16 19:40 | HO.PSYCHPN ---
Subjective Subjective Date of Service: 01/16/23 Reason For Visit: Bipolar disorder w/ psychosis Interim History: Patient seen and discussed. She reports itching due to her mast cell activation. She has a rash on her antecubital area. She thinks it is related to being in the hospital and having a reaction to new sheets and detergents. Mood is improved. Anxiety improved. Tolerating medications well. Denies SI. Review of Systems Review of Systems Patient states that she has no acute medical complaints at this time Constitutional: Reports difficulty sleeping, Reports fatigue, Reports headache(s) and Reports lethargy Reports headache(s) Reports headache(s) Endocrine: Reports fatigue Mental Status Exam Mental Status Exam Narrative: Appearance: casually groomed, fair hygiene (waiting to take a shower), jaw pain Behavior: guarded at first Psychomotor: no agitation or retardation noted Speech: clear, regular rate, not pressured, spontaneous TP: tangential TC: feeling tired, anxious, needing to rest Mood: Slightly better Affect: congruent, dysphoric SI: denies HI: denies VH/AH: none Delusions: no delusional content noted or reported Insight/judgment: fair x 2. Memory/cog: alert, oriented x 3. grossly intact to conversational testing. Diagnostics Vital Signs (24Hr): Vital Signs - 24 hr 01/15/23 19:55 01/16/23 08:05 Temperature 96.5 F L 97.8 F Pulse Rate 87 98 Respiratory Rate 18 Blood Pressure 115/87 129/78 Pulse Oximetry 98 Oxygen Delivery Method Room Air Medications Medications Current Medications Acetaminophen (Acetaminophen 325 Mg Tablet) 650 mg PO Q6H PRN PRN Reason: Headache/Pain Mild Scale (1-3) Last Admin: 01/16/23 17:25 Dose: 650 mg Al Hydroxide/Mg Hydroxide (Magnesium Hydrox/Alum Hydrox 30 Ml Oral.Susp) 30 ml PO Q6H PRN PRN Reason: Heartburn/Nausea Alprazolam (Alprazolam 0.5 Mg Tablet) 1 mg PO TID [facility] Last Admin: 01/16/23 14:22 Dose: 1 mg Amphetamine/Dextroamphetamine (Dextroamphetamine/Amphetamine Xr 10 Mg Cap.Er.24h) 20 mg PO DAILY [facility] Last Admin: 01/16/23 08:02 Dose: 20 mg Benzocaine (Benzocaine 20 % Oral Gel 9 Gm Tube) 1 appl MUCOUS MEM Q4H PRN; Protocol PRN Reason: gum pain Last Admin: 01/15/23 12:47 Dose: 1 appl Diphenhydramine HCl (Diphenhydramine Hcl 25 Mg Capsule) 25 mg PO Q6H PRN PRN Reason: Itching Last Admin: 01/16/23 17:26 Dose: 25 mg Folic Acid (Folic Acid 1 Mg Tablet) 1 mg PO DAILY CHARLIE Stop: 01/17/23 12:39 Last Admin: 01/16/23 08:03 Dose: 1 mg Gabapentin (Gabapentin 300 Mg Capsule) 300 mg PO TID CHARLIE Last Admin: 01/16/23 14:22 Dose: 300 mg Hydroxyzine HCl (Hydroxyzine Hcl 25 Mg Tablet) 25 mg PO Q6H PRN PRN Reason: Anxiety Magnesium Hydroxide (Milk Of Magnesia 30 Ml Oral.Susp) 30 ml PO DAILY PRN PRN Reason: Constipation Olanzapine (Olanzapine 5 Mg Tablet) 5 mg PO Q4H PRN PRN Reason: psychosis, bryce, agitation Ondansetron HCl (Ondansetron Odt 4 Mg Tab.Rapdis) 4 mg TRANSLINGU Q8H PRN PRN Reason: Nausea Last Admin: 01/15/23 17:17 Dose: 4 mg Propranolol HCl (Propranolol Hcl 10 Mg Tablet) 10 mg PO TID CHARLIE; Protocol Last Admin: 01/16/23 14:22 Dose: 10 mg Trazodone HCl (Trazodone Hcl 50 Mg Tablet) 50 mg PO BEDTIME PRN PRN Reason: Insomnia Last Admin: 01/14/23 19:51 Dose: 50 mg Allergies Allergies Allergy/AdvReac Type Severity Reaction Status Date / Time gluten AdvReac Gastrointestinal Verified 01/13/23 23:29 Upset lorazepam [From Ativan] AdvReac Headache Verified 10/22/20 19:11 wheat AdvReac Gastrointestinal Verified 01/13/23 23:29 Upset Assessment & Plan Assessment & Plan (1) Bipolar 1 disorder, manic, mild: Status: Acute Code(s): F31.11 - Bipolar disorder, current episode manic without psychotic features, mild Plan Mrs. Peralta is a 47 year-old woman with hx of Bipolar Disorder who self presented to [facility] ED reporting feeling tired, with nausea, not sleeping, more anxious. Pt was recently discharged from [facility] after 3 week admission. Pt presents with tangential speech, hyperverbal but not pressured. No SI/HI. No psychosis or delusional content noted or reported. Pt reports not sleeping well. We discussed risks, benefits and alternative treatment options. Pt reports her medications have been helpful including combination or stimulant and xanax. Pt not open to other medication options that may include a mood stabilizer even if less sedation options than depakote. She does not appear at imminent risk of harm to self or others at this point. PLAN 1. Admit to M5, CV 15 minutes checks for safety 2. continue lower dose of adderall- at this point pt reports she uses for physical fatigue. She has not slept in days so in agreement to reduce dose in order aid sleep. but explained that may worsen hypomania or bryce- which pt does not think she has. 3. Obtain collateral information 4. Aftercare plan 01/15: Continue current treatment plan. 01/16: Continue treatment plan unchanged. Reason for continued inpatient stay Substantial Risk for: harm to self Time Spent With Patient Time: Total time managing care of this patient today ____ minutes.
[2023-01-16 20:22] VITALS: BP 122/75; PULSE 80; TEMP 36.6
[2023-01-17 00:19] VITALS: BMI 22.6
[2023-01-17 08:20] VITALS: BP 126/82; PULSE 84; RESP 16; TEMP 36.5; O2SAT 99
[2023-01-17] MEDS: Dextroamphetamine/Amphetamine XR 10 MG CAP.ER.24H 20 MG PO (08:22)
[2023-01-17] MEDS: Folic Acid 1 MG TABLET PO (08:22)
[2023-01-17] MEDS: Gabapentin 300 MG CAPSULE PO ×3 (08:22→20:05)
[2023-01-17] MEDS: ALPRAZolam 0.5 MG TABLET 1 MG PO ×3 (08:22→20:04)
[2023-01-17] MEDS: Propranolol HCL 10 MG TABLET PO ×3 (08:22→20:05)
[2023-01-17] MEDS: Acetaminophen 325 MG TABLET 650 MG PO ×3 (08:22→21:37)
[2023-01-17] MEDS: diphenhydrAMINE HCL 25 MG CAPSULE PO (08:22)
[2023-01-17] MEDS: Amphetamine Mixed Salts 10 MG TABLET 30 MG PO (11:32)
[2023-01-17] MEDS: diphenhydrAMINE HCL 25 MG CAPSULE 50 MG PO ×2 (11:32→18:57)
[2023-01-17 14:42] VITALS: BP 137/90; PULSE 82
--- NOTE | 2023-01-17 16:41 | HO.PSYCHPN ---
Subjective Subjective Date of Service: 01/17/23 Reason For Visit: Bipolar disorder w/ psychosis Subjective Notes: Conditional Voluntary Healthcare Proxy: No Guardianship: No Medical Problems Affecting Mental Status: No Interim History: Review of medications. Changes initiated. Review of precipitants to admission and current concerns. Pt clear, taking responsibility for self care, anxious about upcoming court dates with . Parents are very supportive Anxious about seeing her children who are very perceptive when she is not feeling well. Asks for help in ordering her contact lenses. Medication Compliance: Yes Side effects from medications: No Attending Groups: Yes Review of Systems Acute medical concerns: No Medical Review of Systems: unchanged Mental Status Exam Mental Status Exam Patient Appearance: Fatigued Patient Orientation: Person, Place, Time and Situation Level of Consciousness: Alert Patient Behavior: Appropriate, Talkative, Cooperative and Good Eye Contact Mood Description: Anxious and Apprehensive Affect Description: Anxious and Apprehensive Patient Cognition Impaired: No Ability to Follow Directions: Good Speech Pattern: Spontaneous Speech Memory Description: Intact Hallucinations: None Delusions: Not Present Perceptual Disturbances: Depersonalization and Derealization Thought Process: Rumination Thought Content: positive for Perseveration, positive for Suicidal Ideation (denies) and positive for Homicidal Ideation (denies) Depressive Symptoms: Increased Anxiety, Increased Fatigue and Thoughts of /Suicide (denies) Judgement: Good Diagnostics Vital Signs (24Hr): Vital Signs - 24 hr 01/16/23 20:22 01/17/23 08:20 01/17/23 14:42 Temperature 97.8 F 97.7 F Pulse Rate 80 84 82 Respiratory Rate 16 Blood Pressure 122/75 126/82 137/90 H Pulse Oximetry 99 Oxygen Delivery Method Room Air BMI result Body Mass Index 22.6 Medications Medications Current Medications Acetaminophen (Acetaminophen 325 Mg Tablet) 650 mg PO Q6H PRN PRN Reason: Headache/Pain Mild Scale (1-3) Last Admin: 01/17/23 14:44 Dose: 650 mg Al Hydroxide/Mg Hydroxide (Magnesium Hydrox/Alum Hydrox 30 Ml Oral.Susp) 30 ml PO Q6H PRN PRN Reason: Heartburn/Nausea Alprazolam (Alprazolam 0.5 Mg Tablet) 1 mg PO TID [facility] Last Admin: 01/17/23 14:44 Dose: 1 mg Amphetamine/Dextroamphetamine (Amphetamine Mixed Salts 20 Mg Tablet) 20 mg PO DAILY [facility] Amphetamine/Dextroamphetamine (Amphetamine Mixed Salts 10 Mg Tablet) 30 mg PO 1200 [facility] Last Admin: 01/17/23 11:32 Dose: 30 mg Benzocaine (Benzocaine 20 % Oral Gel 9 Gm Tube) 1 appl MUCOUS MEM Q4H PRN; Protocol PRN Reason: gum pain Last Admin: 01/15/23 12:47 Dose: 1 appl Diphenhydramine HCl (Diphenhydramine Hcl 25 Mg Capsule) 50 mg PO Q4H PRN PRN Reason: Itching Last Admin: 01/17/23 11:32 Dose: 25 mg Gabapentin (Gabapentin 300 Mg Capsule) 300 mg PO TID [facility] Last Admin: 01/17/23 14:44 Dose: 300 mg Magnesium Hydroxide (Milk Of Magnesia 30 Ml Oral.Susp) 30 ml PO DAILY PRN PRN Reason: Constipation Olanzapine (Olanzapine 5 Mg Tablet) 5 mg PO Q4H PRN PRN Reason: psychosis, bryce, agitation Ondansetron HCl (Ondansetron Odt 4 Mg Tab.Rapdis) 4 mg TRANSLINGU Q8H PRN PRN Reason: Nausea Last Admin: 01/15/23 17:17 Dose: 4 mg Propranolol HCl (Propranolol Hcl 10 Mg Tablet) 10 mg PO TID [facility]; Protocol Last Admin: 01/17/23 14:44 Dose: 10 mg Allergies Allergies Allergy/AdvReac Type Severity Reaction Status Date / Time gluten AdvReac Gastrointestinal Verified 01/13/23 23:29 Upset lorazepam [From Ativan] AdvReac Headache Verified 10/22/20 19:11 wheat AdvReac Gastrointestinal Verified 01/13/23 23:29 Upset Assessment & Plan Assessment & Plan (1) Bipolar 1 disorder, manic, mild: Status: Acute Code(s): F31.11 - Bipolar disorder, current episode manic without psychotic features, mild Plan Mrs. Peralta is a 47 year-old woman with hx of Bipolar Disorder who self presented to [facility] ED reporting feeling tired, with nausea, not sleeping, more anxious. Pt was recently discharged from [facility] after 3 week admission. Pt presents with tangential speech, hyperverbal but not pressured. No SI/HI. No psychosis or delusional content noted or reported. Pt reports not sleeping well. We discussed risks, benefits and alternative treatment options. Pt reports her medications have been helpful including combination or stimulant and xanax. Pt not open to other medication options that may include a mood stabilizer even if less sedation options than depakote. She does not appear at imminent risk of harm to self or others at this point. PLAN 1. Admit to M5, CV 15 minutes checks for safety 2. continue lower dose of adderall- at this point pt reports she uses for physical fatigue. She has not slept in days so in agreement to reduce dose in order aid sleep. but explained that may worsen hypomania or bryce- which pt does not think she has. 3. Obtain collateral information 4. Aftercare plan 01/15: Continue current treatment plan. 01/16: Continue treatment plan unchanged. 01/17/23: Change Adderall dosing to 20 mg a.m. 30 mg noon Change Benadryl to 50 mg [id number] prn Discontinue Trazodone Patient educated on: medication risk/benefits and therapeutic strategies Informed Consent: understands Reason for continued inpatient stay Substantial Risk for: rapid decompensation Time Spent With Patient Time: Total time managing care of this patient today ____ minutes.
[2023-01-17 20:00] VITALS: BP 116/72; PULSE 87; TEMP 35.8; O2SAT 98
[2023-01-18 08:30] VITALS: BP 134/82; PULSE 84; RESP 16; TEMP 36.6; O2SAT 99
[2023-01-18] MEDS: ALPRAZolam 0.5 MG TABLET 1 MG PO ×3 (08:30→20:33)
[2023-01-18] MEDS: Acetaminophen 325 MG TABLET 650 MG PO ×2 (08:30→20:33)
[2023-01-18] MEDS: Gabapentin 300 MG CAPSULE PO ×3 (08:31→20:33)
[2023-01-18] MEDS: Propranolol HCL 10 MG TABLET PO ×3 (08:31→20:34)
[2023-01-18] MEDS: diphenhydrAMINE HCL 25 MG CAPSULE 50 MG PO ×3 (08:31→20:33)
[2023-01-18] MEDS: Amphetamine Mixed Salts 20 MG TABLET PO (08:31)
[2023-01-18] MEDS: Amphetamine Mixed Salts 10 MG TABLET 30 MG PO (12:04)
[2023-01-18 14:00] VITALS: BP 135/93; PULSE 101
--- NOTE | 2023-01-18 16:54 | P.PNPSI_ITS ---
Subjective Subjective Date of Service: 01/18/23 Reason For Visit: Bipolar disorder w/ psychosis Subjective Notes: Conditional Voluntary Healthcare Proxy: No Guardianship: No Medical Problems Affecting Mental Status: No Interim History: Tolerating medication changes. Discussed concerns today with children visiting (which will not be allowed on the unit) Discussed concerns with upcoming court dates Parents would like to have a meeting. Pt is in agreement. We will schedule. Pt integrating more into milieu groups today. Medication Compliance: Yes Side effects from medications: No Attending Groups: Intermittent Review of Systems Acute medical concerns: No Medical Review of Systems: unchanged Mental Status Exam Mental Status Exam Patient Appearance: Fatigued Patient Orientation: Person, Place, Time and Situation Level of Consciousness: Alert Patient Behavior: Appropriate, Talkative, Cooperative and Good Eye Contact Mood Description: Anxious and Apprehensive Affect Description: Anxious and Apprehensive Patient Cognition Impaired: No Ability to Follow Directions: Good Speech Pattern: Spontaneous Speech Memory Description: Intact Hallucinations: None Delusions: Not Present Perceptual Disturbances: Depersonalization and Derealization Thought Process: Rumination Thought Content: positive for Perseveration, positive for Suicidal Ideation (denies) and positive for Homicidal Ideation (denies) Depressive Symptoms: Increased Anxiety, Increased Fatigue and Thoughts of /Suicide (denies) Judgement: Good Diagnostics Vital Signs (24Hr): Vital Signs - 24 hr 01/17/23 20:00 01/18/23 08:30 01/18/23 14:00 Temperature 96.4 F L 97.8 F Pulse Rate 87 84 101 H Respiratory Rate 16 Blood Pressure 116/72 134/82 135/93 H Pulse Oximetry 98 99 Oxygen Delivery Method Room Air Room Air BMI result Body Mass Index 22.6 Medications Medications Current Medications Acetaminophen (Acetaminophen 325 Mg Tablet) 650 mg PO Q6H PRN PRN Reason: Headache/Pain Mild Scale (1-3) Last Admin: 01/18/23 08:30 Dose: 650 mg Al Hydroxide/Mg Hydroxide (Magnesium Hydrox/Alum Hydrox 30 Ml Oral.Susp) 30 ml PO Q6H PRN PRN Reason: Heartburn/Nausea Alprazolam (Alprazolam 0.5 Mg Tablet) 1 mg PO TID [facility] Last Admin: 01/18/23 14:06 Dose: 1 mg Amphetamine/Dextroamphetamine (Amphetamine Mixed Salts 20 Mg Tablet) 20 mg PO DAILY [facility] Last Admin: 01/18/23 08:31 Dose: 20 mg Amphetamine/Dextroamphetamine (Amphetamine Mixed Salts 10 Mg Tablet) 30 mg PO 1200 [facility] Last Admin: 01/18/23 12:04 Dose: 30 mg Benzocaine (Benzocaine 20 % Oral Gel 9 Gm Tube) 1 appl MUCOUS MEM Q4H PRN; Protocol PRN Reason: gum pain Last Admin: 01/15/23 12:47 Dose: 1 appl Diphenhydramine HCl (Diphenhydramine Hcl 25 Mg Capsule) 50 mg PO Q4H PRN PRN Reason: Itching Last Admin: 01/18/23 14:05 Dose: 25 mg Gabapentin (Gabapentin 300 Mg Capsule) 300 mg PO TID [facility] Last Admin: 01/18/23 14:05 Dose: 300 mg Magnesium Hydroxide (Milk Of Magnesia 30 Ml Oral.Susp) 30 ml PO DAILY PRN PRN Reason: Constipation Olanzapine (Olanzapine 5 Mg Tablet) 5 mg PO Q4H PRN PRN Reason: psychosis, bryce, agitation Ondansetron HCl (Ondansetron Odt 4 Mg Tab.Rapdis) 4 mg TRANSLINGU Q8H PRN PRN Reason: Nausea Last Admin: 01/15/23 17:17 Dose: 4 mg Propranolol HCl (Propranolol Hcl 10 Mg Tablet) 10 mg PO TID [facility]; Protocol Last Admin: 01/18/23 14:05 Dose: 10 mg Allergies Allergies Allergy/AdvReac Type Severity Reaction Status Date / Time gluten AdvReac Gastrointestinal Verified 01/13/23 23:29 Upset lorazepam [From Ativan] AdvReac Headache Verified 10/22/20 19:11 wheat AdvReac Gastrointestinal Verified 01/13/23 23:29 Upset Assessment & Plan Assessment & Plan (1) Bipolar 1 disorder, manic, mild: Status: Acute Code(s): F31.11 - Bipolar disorder, current episode manic without psychotic features, mild Plan Mrs. Peralta is a 47 year-old woman with hx of Bipolar Disorder who self presented to [facility] ED reporting feeling tired, with nausea, not sleeping, more anxious. Pt was recently discharged from [facility] after 3 week admission. Pt presents with tangential speech, hyperverbal but not pressured. No SI/HI. No psychosis or delusional content noted or reported. Pt reports not sleeping well. We discussed risks, benefits and alternative treatment options. Pt reports her medications have been helpful including combination or stimulant and xanax. Pt not open to other medication options that may include a mood stabilizer even if less sedation options than depakote. She does not appear at imminent risk of harm to self or others at this point. PLAN 1. Admit to M5, CV 15 minutes checks for safety 2. continue lower dose of adderall- at this point pt reports she uses for physical fatigue. She has not slept in days so in agreement to reduce dose in order aid sleep. but explained that may worsen hypomania or bryce- which pt does not think she has. 3. Obtain collateral information 4. Aftercare plan 01/15: Continue current treatment plan. 01/16: Continue treatment plan unchanged. 01/18/23: Tolerating medication changes. Encourage milieu. Patient educated on: medication risk/benefits and therapeutic strategies Informed Consent: understands Reason for continued inpatient stay Substantial Risk for: rapid decompensation Time Spent With Patient Time: Total time managing care of this patient today ____ minutes.
[2023-01-18 20:25] VITALS: BP 135/75; PULSE 98; TEMP 36.6; O2SAT 99
[2023-01-19 08:05] VITALS: BP 127/66; PULSE 82; RESP 16; TEMP 36.4; O2SAT 99
[2023-01-19] MEDS: Gabapentin 300 MG CAPSULE PO ×3 (08:10→20:05)
[2023-01-19] MEDS: Propranolol HCL 10 MG TABLET PO ×3 (08:10→20:05)
[2023-01-19] MEDS: Amphetamine Mixed Salts 20 MG TABLET PO (08:11)
[2023-01-19] MEDS: Acetaminophen 325 MG TABLET 650 MG PO ×2 (08:11→16:07)
[2023-01-19] MEDS: ALPRAZolam 0.5 MG TABLET 1 MG PO ×3 (08:11→20:04)
[2023-01-19] MEDS: diphenhydrAMINE HCL 25 MG CAPSULE 50 MG PO ×3 (08:11→20:04)
[2023-01-19] MEDS: Amphetamine Mixed Salts 10 MG TABLET 30 MG PO (11:08)
--- NOTE | 2023-01-19 16:52 | P.PNPSI_ITS ---
Subjective Subjective Date of Service: 01/19/23 Reason For Visit: Bipolar disorder w/ psychosis Subjective Notes: Conditional Voluntary Healthcare Proxy: No Guardianship: No Medical Problems Affecting Mental Status: No Interim History: Today, discussing the effects of [place], PTSD, anxiety about upcoming court process, family and her future. Finding milieu helpful in easier focus, organization and decrease of stress with group techniques. Medication Compliance: Yes Side effects from medications: No Attending Groups: Yes Review of Systems Acute medical concerns: No Medical Review of Systems: unchanged Mental Status Exam Mental Status Exam Patient Appearance: Fatigued Patient Orientation: Person, Place, Time and Situation Level of Consciousness: Alert Patient Behavior: Appropriate, Talkative, Cooperative and Good Eye Contact Mood Description: Anxious and Apprehensive Affect Description: Anxious and Apprehensive Patient Cognition Impaired: No Ability to Follow Directions: Good Speech Pattern: Spontaneous Speech Memory Description: Intact Hallucinations: None Delusions: Not Present Perceptual Disturbances: Depersonalization and Derealization Thought Process: Rumination Thought Content: positive for Perseveration, positive for Suicidal Ideation (denies) and positive for Homicidal Ideation (denies) Depressive Symptoms: Increased Anxiety, Increased Fatigue and Thoughts of /Suicide (denies) Judgement: Good Diagnostics Vital Signs (24Hr): Vital Signs - 24 hr 01/18/23 20:25 01/19/23 08:05 Temperature 97.8 F 97.5 F Pulse Rate 98 82 Respiratory Rate 16 Blood Pressure 135/75 127/66 Pulse Oximetry 99 99 Oxygen Delivery Method Room Air BMI result Body Mass Index 22.6 Medications Medications Current Medications Acetaminophen (Acetaminophen 325 Mg Tablet) 650 mg PO Q6H PRN PRN Reason: Headache/Pain Mild Scale (1-3) Last Admin: 01/19/23 16:07 Dose: 650 mg Al Hydroxide/Mg Hydroxide (Magnesium Hydrox/Alum Hydrox 30 Ml Oral.Susp) 30 ml PO Q6H PRN PRN Reason: Heartburn/Nausea Alprazolam (Alprazolam 0.5 Mg Tablet) 1 mg PO TID [facility] Last Admin: 01/19/23 14:32 Dose: 1 mg Amphetamine/Dextroamphetamine (Amphetamine Mixed Salts 20 Mg Tablet) 20 mg PO DAILY [facility] Last Admin: 01/19/23 08:11 Dose: 20 mg Amphetamine/Dextroamphetamine (Amphetamine Mixed Salts 10 Mg Tablet) 30 mg PO 1200 [facility] Last Admin: 01/19/23 11:08 Dose: 30 mg Benzocaine (Benzocaine 20 % Oral Gel 9 Gm Tube) 1 appl MUCOUS MEM Q4H PRN; Protocol PRN Reason: gum pain Last Admin: 01/15/23 12:47 Dose: 1 appl Diphenhydramine HCl (Diphenhydramine Hcl 25 Mg Capsule) 50 mg PO Q4H PRN PRN Reason: Itching Last Admin: 01/19/23 14:32 Dose: 25 mg Gabapentin (Gabapentin 300 Mg Capsule) 300 mg PO TID [facility] Last Admin: 01/19/23 14:32 Dose: 300 mg Magnesium Hydroxide (Milk Of Magnesia 30 Ml Oral.Susp) 30 ml PO DAILY PRN PRN Reason: Constipation Olanzapine (Olanzapine 5 Mg Tablet) 5 mg PO Q4H PRN PRN Reason: psychosis, bryce, agitation Ondansetron HCl (Ondansetron Odt 4 Mg Tab.Rapdis) 4 mg TRANSLINGU Q8H PRN PRN Reason: Nausea Last Admin: 01/15/23 17:17 Dose: 4 mg Propranolol HCl (Propranolol Hcl 10 Mg Tablet) 10 mg PO TID [facility]; Protocol Last Admin: 01/19/23 14:32 Dose: 10 mg Allergies Allergies Allergy/AdvReac Type Severity Reaction Status Date / Time gluten AdvReac Gastrointestinal Verified 01/13/23 23:29 Upset lorazepam [From Ativan] AdvReac Headache Verified 10/22/20 19:11 wheat AdvReac Gastrointestinal Verified 01/13/23 23:29 Upset Assessment & Plan Assessment & Plan (1) Bipolar 1 disorder, manic, mild: Status: Acute Code(s): F31.11 - Bipolar disorder, current episode manic without psychotic features, mild Plan Mrs. Peralta is a 47 year-old woman with hx of Bipolar Disorder who self presented to [facility] ED reporting feeling tired, with nausea, not sleeping, more anxious. Pt was recently discharged from [facility] after 3 week admission. Pt presents with tangential speech, hyperverbal but not pressured. No SI/HI. No psychosis or delusional content noted or reported. Pt reports not sleeping well. We discussed risks, benefits and alternative treatment options. Pt reports her medications have been helpful including combination or stimulant and xanax. Pt not open to other medication options that may include a mood stabilizer even if less sedation options than depakote. She does not appear at imminent risk of harm to self or others at this point. PLAN 1. Admit to M5, CV 15 minutes checks for safety 2. continue lower dose of adderall- at this point pt reports she uses for physical fatigue. She has not slept in days so in agreement to reduce dose in order aid sleep. but explained that may worsen hypomania or bryce- which pt does not think she has. 3. Obtain collateral information 4. Aftercare plan 01/15: Continue current treatment plan. 01/16: Continue treatment plan unchanged. 01/17/23: Change Adderall dosing to 20 mg a.m. 30 mg noon Change Benadryl to 50 mg [id number] prn Discontinue Trazodone 01/19/23: Arrange family meeting No medicine changes today. Patient educated on: therapeutic strategies Informed Consent: understands and further education needed Reason for continued inpatient stay Substantial Risk for: rapid decompensation Time Spent With Patient Time: Total time managing care of this patient today ____ minutes.
[2023-01-19 19:45] VITALS: BP 116/60; PULSE 78; TEMP 36.3; O2SAT 94
[2023-01-20 07:00] VITALS: BMI 28.1
[2023-01-20 08:00] VITALS: BP 119/77; PULSE 84; RESP 16; TEMP 36.2; O2SAT 99
[2023-01-20] MEDS: Gabapentin 300 MG CAPSULE PO ×3 (08:16→20:00)
[2023-01-20] MEDS: ALPRAZolam 0.5 MG TABLET 1 MG PO ×3 (08:16→20:00)
[2023-01-20] MEDS: Propranolol HCL 10 MG TABLET PO ×3 (08:16→20:00)
[2023-01-20] MEDS: Amphetamine Mixed Salts 20 MG TABLET PO (08:16)
[2023-01-20] MEDS: Acetaminophen 325 MG TABLET 650 MG PO ×2 (08:53→20:00)
[2023-01-20] MEDS: diphenhydrAMINE HCL 25 MG CAPSULE 50 MG PO ×2 (08:54→20:01)
[2023-01-20] MEDS: Amphetamine Mixed Salts 10 MG TABLET 30 MG PO (11:27)
[2023-01-20 14:41] VITALS: BP 124/94; PULSE 93; RESP 18
[2023-01-20 16:26] VITALS: BP 117/73; PULSE 91; RESP 18; TEMP 36.3; O2SAT 99
--- NOTE | 2023-01-20 17:22 | HO.PSYCHPN ---
Subjective Subjective Date of Service: 01/20/23 Reason For Visit: Bipolar disorder w/ psychosis Subjective Notes: Conditional Voluntary Healthcare Proxy: No Guardianship: No Medical Problems Affecting Mental Status: No Interim History: Today, pt is more visable and appears to be more engaged in group work and with peers. 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 Family meeting 01/24/23 10:30a.m. with pt and her parents. Pt to begin to work on a list of topics she would like discussed and goals. Medication Compliance: Yes Side effects from medications: No Attending Groups: Yes Review of Systems Acute medical concerns: No Medical Review of Systems: unchanged Mental Status Exam Mental Status Exam Patient Appearance: Fatigued Patient Orientation: Person, Place, Time and Situation Level of Consciousness: Alert Patient Behavior: Appropriate, Talkative, Cooperative and Good Eye Contact Mood Description: Anxious and Apprehensive Affect Description: Anxious and Apprehensive Patient Cognition Impaired: No Ability to Follow Directions: Good Speech Pattern: Spontaneous Speech Memory Description: Intact Hallucinations: None Delusions: Not Present Perceptual Disturbances: Depersonalization and Derealization Thought Process: Rumination Thought Content: positive for Perseveration, positive for Suicidal Ideation (denies) and positive for Homicidal Ideation (denies) Depressive Symptoms: Increased Anxiety, Increased Fatigue and Thoughts of /Suicide (denies) Judgement: Good Diagnostics Vital Signs (24Hr): Vital Signs - 24 hr 01/19/23 19:45 01/20/23 08:00 01/20/23 14:41 Temperature 97.4 F 97.1 F Pulse Rate 78 84 93 Respiratory Rate 16 18 Blood Pressure 116/60 119/77 124/94 H Pulse Oximetry 94 99 Oxygen Delivery Method Room Air Room Air 01/20/23 16:26 Temperature 97.3 F Pulse Rate 91 Respiratory Rate 18 Blood Pressure 117/73 Pulse Oximetry 99 Oxygen Delivery Method Room Air BMI result Body Mass Index 28.1 Medications Medications Current Medications Acetaminophen (Acetaminophen 325 Mg Tablet) 650 mg PO Q6H PRN PRN Reason: Headache/Pain Mild Scale (1-3) Last Admin: 01/20/23 08:53 Dose: 650 mg Al Hydroxide/Mg Hydroxide (Magnesium Hydrox/Alum Hydrox 30 Ml Oral.Susp) 30 ml PO Q6H PRN PRN Reason: Heartburn/Nausea Alprazolam (Alprazolam 0.5 Mg Tablet) 1 mg PO TID [facility] Last Admin: 01/20/23 14:39 Dose: 1 mg Amphetamine/Dextroamphetamine (Amphetamine Mixed Salts 20 Mg Tablet) 20 mg PO DAILY [facility] Last Admin: 01/20/23 08:16 Dose: 20 mg Amphetamine/Dextroamphetamine (Amphetamine Mixed Salts 10 Mg Tablet) 30 mg PO 1200 [facility] Last Admin: 01/20/23 11:27 Dose: 30 mg Benzocaine (Benzocaine 20 % Oral Gel 9 Gm Tube) 1 appl MUCOUS MEM Q4H PRN; Protocol PRN Reason: gum pain Last Admin: 01/15/23 12:47 Dose: 1 appl Diphenhydramine HCl (Diphenhydramine Hcl 25 Mg Capsule) 50 mg PO Q4H PRN PRN Reason: Itching Last Admin: 01/20/23 08:54 Dose: 25 mg Gabapentin (Gabapentin 300 Mg Capsule) 300 mg PO TID [facility] Last Admin: 01/20/23 14:40 Dose: 300 mg Magnesium Hydroxide (Milk Of Magnesia 30 Ml Oral.Susp) 30 ml PO DAILY PRN PRN Reason: Constipation Olanzapine (Olanzapine 5 Mg Tablet) 5 mg PO Q4H PRN PRN Reason: psychosis, bryce, agitation Ondansetron HCl (Ondansetron Odt 4 Mg Tab.Rapdis) 4 mg TRANSLINGU Q8H PRN PRN Reason: Nausea Last Admin: 01/15/23 17:17 Dose: 4 mg Propranolol HCl (Propranolol Hcl 10 Mg Tablet) 10 mg PO TID [facility]; Protocol Last Admin: 01/20/23 14:39 Dose: 10 mg Allergies Allergies Allergy/AdvReac Type Severity Reaction Status Date / Time gluten AdvReac Gastrointestinal Verified 01/13/23 23:29 Upset lorazepam [From Ativan] AdvReac Headache Verified 10/22/20 19:11 wheat AdvReac Gastrointestinal Verified 01/13/23 23:29 Upset Assessment & Plan Assessment & Plan (1) Bipolar 1 disorder, manic, mild: Status: Acute Code(s): F31.11 - Bipolar disorder, current episode manic without psychotic features, mild Plan Mrs. Peralta is a 47 year-old woman with hx of Bipolar Disorder who self presented to [facility] ED reporting feeling tired, with nausea, not sleeping, more anxious. Pt was recently discharged from [facility] after 3 week admission. Pt presents with tangential speech, hyperverbal but not pressured. No SI/HI. No psychosis or delusional content noted or reported. Pt reports not sleeping well. We discussed risks, benefits and alternative treatment options. Pt reports her medications have been helpful including combination or stimulant and xanax. Pt not open to other medication options that may include a mood stabilizer even if less sedation options than depakote. She does not appear at imminent risk of harm to self or others at this point. PLAN 1. Admit to M5, CV 15 minutes checks for safety 2. continue lower dose of adderall- at this point pt reports she uses for physical fatigue. She has not slept in days so in agreement to reduce dose in order aid sleep. but explained that may worsen hypomania or bryce- which pt does not think she has. 3. Obtain collateral information 4. Aftercare plan 01/15: Continue current treatment plan. 01/16: Continue treatment plan unchanged. 01/17/23: Change Adderall dosing to 20 mg a.m. 30 mg noon Change Benadryl to 50 mg [id number] prn Discontinue Trazodone 01/20/23 Family meeting 01/23/23. Informed Consent: understands Reason for continued inpatient stay Substantial Risk for: rapid decompensation Time Spent With Patient Time: Total time managing care of this patient today ____ minutes.
[2023-01-21 08:15] VITALS: BP 132/79; PULSE 107; RESP 18; TEMP 36.1; O2SAT 99
[2023-01-21] MEDS: Propranolol HCL 10 MG TABLET PO (08:18)
[2023-01-21] MEDS: Amphetamine Mixed Salts 20 MG TABLET PO (08:18)
[2023-01-21] MEDS: ALPRAZolam 0.5 MG TABLET 1 MG PO ×3 (08:18→20:10)
[2023-01-21] MEDS: Gabapentin 300 MG CAPSULE PO ×3 (08:18→20:11)
[2023-01-21] MEDS: diphenhydrAMINE HCL 25 MG CAPSULE 50 MG PO ×2 (08:21→20:15)
[2023-01-21] MEDS: Amphetamine Mixed Salts 10 MG TABLET 30 MG PO (11:51)
--- NOTE | 2023-01-21 13:34 | HO.PSYCHPN ---
Subjective Subjective Date of Service: 01/21/23 Reason For Visit: Bipolar disorder w/ psychosis Subjective Notes: Conditional Voluntary Healthcare Proxy: No Guardianship: No Medical Problems Affecting Mental Status: No Interim History: Reports some improvement in sleep. Family meeting 01/24 10:30a.m. Discussed pt's agenda and began planning for this. Discussed updates in court process. Sad, tearful, anxious, attempting to have organization and a complete plan. As a result of husbands actions, pt has lost her OP treatment team, now without PCP, OP prescriber who is prepared to transfer pt to another provider when found. Pt believes she has been referred to [facility] for an appt on 02/09. We will need to confirm. Discussed these losses-provider support, I-phone to keep in touch with her team, upcoming disability hearing to confirm neuro lyme for approval. Also associate attorney may dismiss himself from her case- they said it was too complicated and taking a long while. Discussed anxiety, feeling lost and abandoned, alone. Reviewed propranolol dosing-will trial 15 mg tid to assist in anxiety mgt. Medication Compliance: Yes Side effects from medications: No Attending Groups: Yes Review of Systems Acute medical concerns: No Medical Review of Systems: unchanged Mental Status Exam Mental Status Exam Patient Appearance: Appropriate Patient Orientation: Person, Place, Time and Situation Level of Consciousness: Alert Patient Behavior: Appropriate, Talkative, Cooperative and Good Eye Contact Mood Description: Depressed, Anxious and Apprehensive Affect Description: Depressed, Anxious and Apprehensive Patient Cognition Impaired: No Ability to Follow Directions: Good Speech Pattern: Perseverating and Spontaneous Speech Memory Description: Intact Hallucinations: None Delusions: Not Present Perceptual Disturbances: Depersonalization and Derealization Thought Process: Rumination and Goal Oriented Thought Content: positive for Goal Oriented, positive for Perseveration, positive for Preoccupation, positive for Suicidal Ideation (denies) and positive for Homicidal Ideation (denies) Depressive Symptoms: Increased Anxiety, Diff. Making Decisions, Hopelessness, Increased Fatigue and Thoughts of /Suicide (denies) Judgement: Good Diagnostics Vital Signs (24Hr): Vital Signs - 24 hr 01/20/23 14:41 01/20/23 16:26 01/21/23 08:15 Temperature 97.3 F 97.0 F Pulse Rate 93 91 107 H Respiratory Rate 18 18 18 Blood Pressure 124/94 H 117/73 132/79 Pulse Oximetry 99 99 Oxygen Delivery Method Room Air Room Air BMI result Body Mass Index 28.1 Medications Medications Current Medications Acetaminophen (Acetaminophen 325 Mg Tablet) 650 mg PO Q6H PRN PRN Reason: Headache/Pain Mild Scale (1-3) Last Admin: 01/20/23 20:00 Dose: 650 mg Al Hydroxide/Mg Hydroxide (Magnesium Hydrox/Alum Hydrox 30 Ml Oral.Susp) 30 ml PO Q6H PRN PRN Reason: Heartburn/Nausea Alprazolam (Alprazolam 0.5 Mg Tablet) 1 mg PO TID [facility] Last Admin: 01/21/23 08:18 Dose: 1 mg Amphetamine/Dextroamphetamine (Amphetamine Mixed Salts 20 Mg Tablet) 20 mg PO DAILY [facility] Last Admin: 01/21/23 08:18 Dose: 20 mg Amphetamine/Dextroamphetamine (Amphetamine Mixed Salts 10 Mg Tablet) 30 mg PO 1200 [facility] Last Admin: 01/21/23 11:51 Dose: 30 mg Benzocaine (Benzocaine 20 % Oral Gel 9 Gm Tube) 1 appl MUCOUS MEM Q4H PRN; Protocol PRN Reason: gum pain Last Admin: 01/15/23 12:47 Dose: 1 appl Diphenhydramine HCl (Diphenhydramine Hcl 25 Mg Capsule) 50 mg PO Q4H PRN PRN Reason: Itching Last Admin: 01/21/23 08:21 Dose: 25 mg Gabapentin (Gabapentin 300 Mg Capsule) 300 mg PO TID [facility] Last Admin: 01/21/23 08:18 Dose: 300 mg Magnesium Hydroxide (Milk Of Magnesia 30 Ml Oral.Susp) 30 ml PO DAILY PRN PRN Reason: Constipation Olanzapine (Olanzapine 5 Mg Tablet) 5 mg PO Q4H PRN PRN Reason: psychosis, bryce, agitation Ondansetron HCl (Ondansetron Odt 4 Mg Tab.Rapdis) 4 mg TRANSLINGU Q8H PRN PRN Reason: Nausea Last Admin: 01/15/23 17:17 Dose: 4 mg Propranolol HCl (Propranolol Hcl 10 Mg Tablet) 15 mg PO TID [facility]; Protocol Allergies Allergies Allergy/AdvReac Type Severity Reaction Status Date / Time gluten AdvReac Gastrointestinal Verified 01/13/23 23:29 Upset lorazepam [From Ativan] AdvReac Headache Verified 10/22/20 19:11 wheat AdvReac Gastrointestinal Verified 01/13/23 23:29 Upset Assessment & Plan Assessment & Plan (1) Bipolar 1 disorder, manic, mild: Status: Acute Code(s): F31.11 - Bipolar disorder, current episode manic without psychotic features, mild Plan Mrs. Peralta is a 47 year-old woman with hx of Bipolar Disorder who self presented to [facility] ED reporting feeling tired, with nausea, not sleeping, more anxious. Pt was recently discharged from [facility] after 3 week admission. Pt presents with tangential speech, hyperverbal but not pressured. No SI/HI. No psychosis or delusional content noted or reported. Pt reports not sleeping well. We discussed risks, benefits and alternative treatment options. Pt reports her medications have been helpful including combination or stimulant and xanax. Pt not open to other medication options that may include a mood stabilizer even if less sedation options than depakote. She does not appear at imminent risk of harm to self or others at this point. PLAN 1. Admit to M5, CV 15 minutes checks for safety 2. continue lower dose of adderall- at this point pt reports she uses for physical fatigue. She has not slept in days so in agreement to reduce dose in order aid sleep. but explained that may worsen hypomania or bryce- which pt does not think she has. 3. Obtain collateral information 4. Aftercare plan 01/15: Continue current treatment plan. 01/16: Continue treatment plan unchanged. 01/17/23: Change Adderall dosing to 20 mg a.m. 30 mg noon Change Benadryl to 50 mg [id number] prn Discontinue Trazodone 01/20/23 Family meeting 01/23/23. 01/21/23 Increase Propranolol to 15 mg tid Patient educated on: medication risk/benefits, therapeutic strategies and other Informed Consent: understands Reason for continued inpatient stay Substantial Risk for: rapid decompensation Time Spent With Patient Time: Total time managing care of this patient today ____ minutes.
[2023-01-21] MEDS: Propranolol HCL 10 MG TABLET 15 MG PO ×2 (14:32→20:11)
[2023-01-21 14:36] VITALS: BP 145/86; PULSE 103
[2023-01-21 20:00] VITALS: BP 161/100; PULSE 102; RESP 18; TEMP 36.6; O2SAT 100
[2023-01-21] MEDS: Acetaminophen 325 MG TABLET 650 MG PO (20:09)
[2023-01-21 21:12] VITALS: BP 134/92; PULSE 115; RESP 18; O2SAT 97
[2023-01-22 08:52] VITALS: BP 130/80; PULSE 94; RESP 16; TEMP 36.5
[2023-01-22] MEDS: ALPRAZolam 0.5 MG TABLET 1 MG PO ×3 (08:55→20:15)
[2023-01-22] MEDS: Propranolol HCL 10 MG TABLET 15 MG PO ×3 (08:55→20:21)
[2023-01-22] MEDS: Acetaminophen 325 MG TABLET 650 MG PO ×2 (08:56→20:14)
[2023-01-22] MEDS: Amphetamine Mixed Salts 20 MG TABLET PO (08:56)
[2023-01-22] MEDS: Gabapentin 300 MG CAPSULE PO ×3 (08:56→20:14)
--- NOTE | 2023-01-22 11:51 | PC.NURSE ---
PT's mother called to inform this contract writer that patient has been calling and leaving nasty messages . Mother stated that pt can act if she is okay but Mother wanted to us to know how sick she truly is. Info passed on to CAW.
[2023-01-22] MEDS: Amphetamine Mixed Salts 10 MG TABLET 30 MG PO (12:06)
[2023-01-22 14:47] VITALS: BP 134/75; PULSE 95
--- NOTE | 2023-01-22 15:28 | PC.NURSE ---
L/M with parent's per patient's request- requested call back (no details left on vm) to inform them that the family meeting for Tuesday is canceled. This was a mutual decision made by Angélica and her care team.
[2023-01-22 18:00] VITALS: BP 135/78; PULSE 88; TEMP 36.6; O2SAT 100
--- NOTE | 2023-01-22 18:24 | HO.PSYCHPN ---
Subjective Subjective Date of Service: 01/22/23 Reason For Visit: Bipolar disorder w/ psychosis Subjective Notes: Conditional Voluntary Interim History: Pt seen, reviewed with the team. Discussed with pt her thoughts about not involving parents in a meeting. By history, pt reports providers and her attorneys have removed parents from her treatment/legal case due to inaccurate reporting and perceptions. Pt's case and care have been negatively impacted she believes by parents. Pt also adds that parents are not a real support for her that is consistent. She would like to cancel the 01/24 meeting and meet with the team to work on her care. Tearful, anxious. Medication Compliance: Yes Side effects from medications: No Attending Groups: Yes Review of Systems Acute medical concerns: No Medical Review of Systems: unchanged Mental Status Exam Mental Status Exam Patient Appearance: Appropriate Patient Orientation: Person, Place, Time and Situation Level of Consciousness: Alert Patient Behavior: Appropriate, Talkative, Cooperative, Distractible and Good Eye Contact Mood Description: Depressed, Anxious and Apprehensive Affect Description: Depressed, Anxious and Apprehensive Patient Cognition Impaired: No Ability to Follow Directions: Good Speech Pattern: Perseverating and Spontaneous Speech Memory Description: Intact Hallucinations: None Delusions: Not Present Perceptual Disturbances: Depersonalization and Derealization Thought Process: Rumination and Goal Oriented Thought Content: positive for Goal Oriented, positive for Perseveration, positive for Preoccupation, positive for Suicidal Ideation (denies) and positive for Homicidal Ideation (denies) Depressive Symptoms: Increased Anxiety, Diff. Making Decisions, Hopelessness, Increased Fatigue and Thoughts of /Suicide (denies) Judgement: Good Diagnostics Vital Signs (24Hr): Vital Signs - 24 hr 01/21/23 20:00 01/21/23 21:12 01/22/23 08:52 Temperature 97.9 F 97.7 F Pulse Rate 102 H 115 H 94 Respiratory Rate 18 18 16 Blood Pressure 161/100 H 134/92 H 130/80 Pulse Oximetry 100 97 Oxygen Delivery Method Room Air Room Air 01/22/23 14:47 Temperature Pulse Rate 95 Respiratory Rate Blood Pressure 134/75 Pulse Oximetry Oxygen Delivery Method BMI result Body Mass Index 28.1 Medications Medications Current Medications Acetaminophen (Acetaminophen 325 Mg Tablet) 650 mg PO Q6H PRN PRN Reason: Headache/Pain Mild Scale (1-3) Last Admin: 07/01/23 08:56 Dose: 650 mg Al Hydroxide/Mg Hydroxide (Magnesium Hydrox/Alum Hydrox 30 Ml Oral.Susp) 30 ml PO Q6H PRN PRN Reason: Heartburn/Nausea Alprazolam (Alprazolam 0.5 Mg Tablet) 1 mg PO TID [facility] Last Admin: 01/22/23 14:43 Dose: 1 mg Amphetamine/Dextroamphetamine (Amphetamine Mixed Salts 20 Mg Tablet) 20 mg PO DAILY [facility] Last Admin: 01/22/23 08:56 Dose: 20 mg Amphetamine/Dextroamphetamine (Amphetamine Mixed Salts 10 Mg Tablet) 30 mg PO 1200 [facility] Last Admin: 01/22/23 12:06 Dose: 30 mg Benzocaine (Benzocaine 20 % Oral Gel 9 Gm Tube) 1 appl MUCOUS MEM Q4H PRN; Protocol PRN Reason: gum pain Last Admin: 01/15/23 12:47 Dose: 1 appl Diphenhydramine HCl (Diphenhydramine Hcl 25 Mg Capsule) 50 mg PO Q4H PRN PRN Reason: Itching Last Admin: 01/21/23 20:15 Dose: 50 mg Gabapentin (Gabapentin 300 Mg Capsule) 300 mg PO TID [facility] Last Admin: 01/22/23 14:43 Dose: 300 mg Magnesium Hydroxide (Milk Of Magnesia 30 Ml Oral.Susp) 30 ml PO DAILY PRN PRN Reason: Constipation Olanzapine (Olanzapine 5 Mg Tablet) 5 mg PO Q4H PRN PRN Reason: psychosis, bryce, agitation Ondansetron HCl (Ondansetron Odt 4 Mg Tab.Rapdis) 4 mg TRANSLINGU Q8H PRN PRN Reason: Nausea Last Admin: 01/15/23 17:17 Dose: 4 mg Propranolol HCl (Propranolol Hcl 10 Mg Tablet) 15 mg PO TID [facility]; Protocol Last Admin: 01/22/23 14:43 Dose: 15 mg Allergies Allergies Allergy/AdvReac Type Severity Reaction Status Date / Time gluten AdvReac Gastrointestinal Verified 01/13/23 23:29 Upset lorazepam [From Ativan] AdvReac Headache Verified 10/22/20 19:11 wheat AdvReac Gastrointestinal Verified 01/13/23 23:29 Upset Assessment & Plan Assessment & Plan (1) Bipolar 1 disorder, manic, mild: Status: Acute Code(s): F31.11 - Bipolar disorder, current episode manic without psychotic features, mild Plan Mrs. Peralta is a 47 year-old woman with hx of Bipolar Disorder who self presented to [facility] ED reporting feeling tired, with nausea, not sleeping, more anxious. Pt was recently discharged from [facility] after 3 week admission. Pt presents with tangential speech, hyperverbal but not pressured. No SI/HI. No psychosis or delusional content noted or reported. Pt reports not sleeping well. We discussed risks, benefits and alternative treatment options. Pt reports her medications have been helpful including combination or stimulant and xanax. Pt not open to other medication options that may include a mood stabilizer even if less sedation options than depakote. She does not appear at imminent risk of harm to self or others at this point. PLAN 1. Admit to M5, CV 15 minutes checks for safety 2. continue lower dose of adderall- at this point pt reports she uses for physical fatigue. She has not slept in days so in agreement to reduce dose in order aid sleep. but explained that may worsen hypomania or bryce- which pt does not think she has. 3. Obtain collateral information 4. Aftercare plan 01/15: Continue current treatment plan. 01/16: Continue treatment plan unchanged. 01/17/23: Change Adderall dosing to 20 mg a.m. 30 mg noon Change Benadryl to 50 mg [id number] prn Discontinue Trazodone 01/20/23 Family meeting 01/23/23. 01/21/23 Increase Propranolol to 15 mg tid 01/22/23 Tolerating increase in Propranolol. Pt has decided to cancel 01/24 meeting with parents. Patient educated on: therapeutic strategies Informed Consent: understands Reason for continued inpatient stay Substantial Risk for: med/psych decompensation Time Spent With Patient Time: Total time managing care of this patient today ____ minutes.
[2023-01-22] MEDS: diphenhydrAMINE HCL 25 MG CAPSULE 50 MG PO (20:15)
[2023-01-23] MEDS: diphenhydrAMINE HCL 25 MG CAPSULE 50 MG PO ×2 (03:01→10:37)
[2023-01-23] MEDS: Acetaminophen 325 MG TABLET 650 MG PO ×2 (03:01→19:39)
[2023-01-23 08:50] VITALS: BP 131/86; PULSE 92; RESP 16; TEMP 36.6; O2SAT 98
[2023-01-23] MEDS: Propranolol HCL 10 MG TABLET 15 MG PO ×3 (08:53→19:39)
[2023-01-23] MEDS: ALPRAZolam 0.5 MG TABLET 1 MG PO ×3 (08:53→20:38)
[2023-01-23] MEDS: Amphetamine Mixed Salts 20 MG TABLET PO (08:53)
[2023-01-23] MEDS: Gabapentin 300 MG CAPSULE PO ×3 (08:53→19:39)
--- NOTE | 2023-01-23 08:56 | HO.PSYCHPN ---
Subjective Subjective Date of Service: 01/23/23 Reason For Visit: Bipolar disorder w/ psychosis Subjective Notes: Conditional Voluntary Healthcare Proxy: No Guardianship: No Medical Problems Affecting Mental Status: No Interim History: Pt seen, discussed with team. Appears brighter with relief after 01/22 discussion Reports some skin breakdown, due to the stress Pt eating adequately. Sleep was impaired last evening. No sx of bryce or psychosis, but anxious, continues to feel abandoned by OP supports. Medication Compliance: Yes Side effects from medications: No Attending Groups: Yes Review of Systems Acute medical concerns: No Medical Review of Systems: unchanged Mental Status Exam Mental Status Exam Patient Appearance: Appropriate Patient Orientation: Person, Place, Time and Situation Level of Consciousness: Alert Patient Behavior: Appropriate, Talkative, Cooperative, Distractible and Good Eye Contact Mood Description: Depressed, Anxious and Apprehensive Affect Description: Depressed, Anxious and Apprehensive Patient Cognition Impaired: No Ability to Follow Directions: Good Speech Pattern: Perseverating and Spontaneous Speech Memory Description: Intact Hallucinations: None Delusions: Not Present Perceptual Disturbances: Depersonalization and Derealization Thought Process: Rumination and Goal Oriented Thought Content: positive for Goal Oriented, positive for Perseveration, positive for Preoccupation, positive for Suicidal Ideation (denies) and positive for Homicidal Ideation (denies) Depressive Symptoms: Increased Anxiety, Diff. Making Decisions, Hopelessness, Increased Fatigue and Thoughts of /Suicide (denies) Judgement: Good Diagnostics Vital Signs (24Hr): Vital Signs - 24 hr 01/22/23 14:47 01/22/23 18:00 Temperature 97.8 F Pulse Rate 95 88 Blood Pressure 134/75 135/78 Pulse Oximetry 100 Oxygen Delivery Method Room Air BMI result Body Mass Index 28.1 Medications Medications Current Medications Acetaminophen (Acetaminophen 325 Mg Tablet) 650 mg PO Q6H PRN PRN Reason: Headache/Pain Mild Scale (1-3) Last Admin: 01/23/23 03:01 Dose: 650 mg Al Hydroxide/Mg Hydroxide (Magnesium Hydrox/Alum Hydrox 30 Ml Oral.Susp) 30 ml PO Q6H PRN PRN Reason: Heartburn/Nausea Alprazolam (Alprazolam 0.5 Mg Tablet) 1 mg PO TID [facility] Last Admin: 01/23/23 08:53 Dose: 1 mg Amphetamine/Dextroamphetamine (Amphetamine Mixed Salts 20 Mg Tablet) 20 mg PO DAILY [facility] Last Admin: 01/23/23 08:53 Dose: 20 mg Amphetamine/Dextroamphetamine (Amphetamine Mixed Salts 10 Mg Tablet) 30 mg PO 1200 [facility] Last Admin: 01/22/23 12:06 Dose: 30 mg Benzocaine (Benzocaine 20 % Oral Gel 9 Gm Tube) 1 appl MUCOUS MEM Q4H PRN; Protocol PRN Reason: gum pain Last Admin: 01/15/23 12:47 Dose: 1 appl Diphenhydramine HCl (Diphenhydramine Hcl 25 Mg Capsule) 50 mg PO Q4H PRN PRN Reason: Itching Last Admin: 01/23/23 03:01 Dose: 50 mg Gabapentin (Gabapentin 300 Mg Capsule) 300 mg PO TID [facility] Last Admin: 01/23/23 08:53 Dose: 300 mg Magnesium Hydroxide (Milk Of Magnesia 30 Ml Oral.Susp) 30 ml PO DAILY PRN PRN Reason: Constipation Olanzapine (Olanzapine 5 Mg Tablet) 5 mg PO Q4H PRN PRN Reason: psychosis, bryce, agitation Ondansetron HCl (Ondansetron Odt 4 Mg Tab.Rapdis) 4 mg TRANSLINGU Q8H PRN PRN Reason: Nausea Last Admin: 01/15/23 17:17 Dose: 4 mg Propranolol HCl (Propranolol Hcl 10 Mg Tablet) 15 mg PO TID [facility]; Protocol Last Admin: 01/23/23 08:53 Dose: 15 mg Allergies Allergies Allergy/AdvReac Type Severity Reaction Status Date / Time gluten AdvReac Gastrointestinal Verified 01/13/23 23:29 Upset lorazepam [From Ativan] AdvReac Headache Verified 10/22/20 19:11 wheat AdvReac Gastrointestinal Verified 01/13/23 23:29 Upset Assessment & Plan Assessment & Plan (1) Bipolar 1 disorder, manic, mild: Status: Acute Code(s): F31.11 - Bipolar disorder, current episode manic without psychotic features, mild Plan Mrs. Peralta is a 47 year-old woman with hx of Bipolar Disorder who self presented to [facility] ED reporting feeling tired, with nausea, not sleeping, more anxious. Pt was recently discharged from [facility] after 3 week admission. Pt presents with tangential speech, hyperverbal but not pressured. No SI/HI. No psychosis or delusional content noted or reported. Pt reports not sleeping well. We discussed risks, benefits and alternative treatment options. Pt reports her medications have been helpful including combination or stimulant and xanax. Pt not open to other medication options that may include a mood stabilizer even if less sedation options than depakote. She does not appear at imminent risk of harm to self or others at this point. PLAN 1. Admit to M5, CV 15 minutes checks for safety 2. continue lower dose of adderall- at this point pt reports she uses for physical fatigue. She has not slept in days so in agreement to reduce dose in order aid sleep. but explained that may worsen hypomania or bryce- which pt does not think she has. 3. Obtain collateral information 4. Aftercare plan 01/15: Continue current treatment plan. 01/16: Continue treatment plan unchanged. 01/17/23: Change Adderall dosing to 20 mg a.m. 30 mg noon Change Benadryl to 50 mg [id number] prn Discontinue Trazodone 01/20/23 Family meeting 01/23/23. 01/21/23 Increase Propranolol to 15 mg tid 01/23/23 Continue current regime. Patient educated on: therapeutic strategies Informed Consent: understands Reason for continued inpatient stay Substantial Risk for: med/psych decompensation Time Spent With Patient Time: Total time managing care of this patient today ____ minutes.
--- NOTE | 2023-01-23 10:11 | PC.NURSE ---
late entry; provided update on Angélica's status to mother (Abbi) via telephone at 16:30 on 01/22/2023. Kept details to a minimum per pt's request, pt is doing well at this time, remains in behavioral control. Mother stated oh really? you don't know the real Angélica. She is deceiving you . This junior technical writer did not comment any further.
[2023-01-23] MEDS: Amphetamine Mixed Salts 10 MG TABLET 30 MG PO (11:19)
--- NOTE | 2023-01-23 13:28 | PC.NURSE ---
PT requested 25mg of Benadryl due to rash on upper left arm (raised, red, itchy bumps). PT believes this is due to mast cell activation. Benadryl given with good effect.
[2023-01-23 14:20] VITALS: BP 135/82; PULSE 104; RESP 16
[2023-01-23 18:00] VITALS: BP 138/78; PULSE 94; TEMP 36.4; O2SAT 100
[2023-01-24 08:00] VITALS: BP 150/95; PULSE 101; RESP 16; TEMP 36.6; O2SAT 100
[2023-01-24] MEDS: ALPRAZolam 0.5 MG TABLET 1 MG PO ×3 (08:07→19:45)
[2023-01-24] MEDS: Gabapentin 300 MG CAPSULE PO ×3 (08:07→19:45)
[2023-01-24] MEDS: Amphetamine Mixed Salts 20 MG TABLET PO (08:07)
[2023-01-24] MEDS: Propranolol HCL 10 MG TABLET 15 MG PO ×3 (08:07→19:44)
[2023-01-24] MEDS: Acetaminophen 325 MG TABLET 650 MG PO ×2 (08:18→15:57)
[2023-01-24] MEDS: Amphetamine Mixed Salts 10 MG TABLET 30 MG PO (11:04)
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
[2023-01-24] MEDS: diphenhydrAMINE HCL 25 MG CAPSULE 50 MG PO (18:40)
[2023-01-24 19:31] VITALS: BP 125/91; PULSE 92; TEMP 36.3; O2SAT 100
[2023-01-25 08:00] VITALS: BP 119/81; PULSE 93; RESP 16; TEMP 36.5; O2SAT 97
[2023-01-25] MEDS: Gabapentin 300 MG CAPSULE PO ×3 (08:18→20:10)
[2023-01-25] MEDS: Propranolol HCL 10 MG TABLET 15 MG PO ×3 (08:18→20:10)
[2023-01-25] MEDS: Amphetamine Mixed Salts 20 MG TABLET PO (08:19)
[2023-01-25] MEDS: ALPRAZolam 0.5 MG TABLET 1 MG PO ×3 (08:19→20:10)
[2023-01-25] MEDS: Amphetamine Mixed Salts 10 MG TABLET 30 MG PO (11:11)
[2023-01-25] MEDS: Acetaminophen 325 MG TABLET 650 MG PO (11:11)
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
[2023-01-25] MEDS: diphenhydrAMINE HCL 25 MG CAPSULE 50 MG PO (18:43)
[2023-01-25 20:05] VITALS: BP 124/86; PULSE 92; RESP 16; TEMP 36.6; O2SAT 99
[2023-01-26 08:30] VITALS: BP 132/78; PULSE 95; RESP 16; TEMP 36.6; O2SAT 99
[2023-01-26] MEDS: Propranolol HCL 10 MG TABLET 15 MG PO ×3 (08:34→19:34)
[2023-01-26] MEDS: Gabapentin 300 MG CAPSULE PO ×3 (08:34→19:33)
[2023-01-26] MEDS: Acetaminophen 325 MG TABLET 650 MG PO ×2 (08:35→14:37)
[2023-01-26] MEDS: ALPRAZolam 0.5 MG TABLET 1 MG PO ×3 (08:35→19:33)
[2023-01-26] MEDS: Amphetamine Mixed Salts 20 MG TABLET PO (08:35)
[2023-01-26] MEDS: Amphetamine Mixed Salts 10 MG TABLET 30 MG PO (11:05)
[2023-01-26] MEDS: diphenhydrAMINE HCL 25 MG CAPSULE 50 MG PO (16:02)
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
[2023-01-26 19:31] VITALS: BP 103/65; PULSE 80; TEMP 36.6
[2023-01-27] MEDS: Acetaminophen 325 MG TABLET 650 MG PO (06:32)
[2023-01-27 07:00] VITALS: BMI 27.5
[2023-01-27 08:00] VITALS: BP 121/74; PULSE 89; RESP 16; TEMP 36.1; O2SAT 97
[2023-01-27] MEDS: Propranolol HCL 10 MG TABLET 15 MG PO ×3 (08:04→20:21)
[2023-01-27] MEDS: Gabapentin 300 MG CAPSULE PO ×3 (08:05→20:21)
[2023-01-27] MEDS: ALPRAZolam 0.5 MG TABLET 1 MG PO ×3 (08:05→20:21)
[2023-01-27] MEDS: Amphetamine Mixed Salts 20 MG TABLET PO (08:07)
[2023-01-27] MEDS: Amphetamine Mixed Salts 10 MG TABLET 30 MG PO (11:09)
[2023-01-27 15:05] VITALS: BP 142/78; PULSE 103
[2023-01-27] MEDS: diphenhydrAMINE HCL 25 MG CAPSULE 50 MG PO (15:08)
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
[2023-01-27 19:50] VITALS: BP 119/63; PULSE 82; RESP 18; TEMP 37.1; O2SAT 99
[2023-01-28] MEDS: Acetaminophen 325 MG TABLET 650 MG PO ×2 (05:53→15:21)
[2023-01-28] MEDS: diphenhydrAMINE HCL 25 MG CAPSULE 50 MG PO ×3 (05:53→20:03)
[2023-01-28 06:00] VITALS: BP 136/84; PULSE 88; RESP 16; TEMP 36.3; O2SAT 100
[2023-01-28] MEDS: Propranolol HCL 10 MG TABLET 15 MG PO ×3 (08:20→20:03)
[2023-01-28] MEDS: Gabapentin 300 MG CAPSULE PO ×3 (08:20→20:04)
[2023-01-28] MEDS: ALPRAZolam 0.5 MG TABLET 1 MG PO ×3 (08:20→20:04)
[2023-01-28] MEDS: Amphetamine Mixed Salts 20 MG TABLET PO (08:20)
[2023-01-28] MEDS: Amphetamine Mixed Salts 10 MG TABLET 30 MG PO (11:07)
[2023-01-28 18:00] VITALS: BP 133/89; PULSE 100; RESP 24; TEMP 36.6; O2SAT 100
--- NOTE | 2023-01-28 20:07 | HO.PSYCHPN ---
Subjective Subjective Date of Service: 01/28/23 Reason For Visit: Bipolar disorder w/ psychosis Interim History: Pt denies suicidal ideation. She reports feeling calmer and sleeping well although worried about court hearing. She has been visible on the unit, sleeping through the night. No behavioral concerns. Pt visible and attending groups. Medication Compliance: Yes Side effects from medications: No Review of Systems Review of Systems Patient states that she has no acute medical complaints at this time Constitutional: Reports difficulty sleeping, Reports fatigue, Reports headache(s) and Reports lethargy Reports headache(s) Reports headache(s) Endocrine: Reports fatigue Mental Status Exam Mental Status Exam Narrative: Appearance: casually groomed, fair hygiene, jaw pain Behavior: guarded at first Psychomotor: no agitation or retardation noted Speech: clear, regular rate, not pressured, spontaneous TP: circumstantial. TC: focused on divorce and its ramification on her life and health. Mood: anxious Affect: congruent, dysphoric SI: denies HI: denies VH/AH: none Delusions: no delusional content noted or reported Insight/judgment: fair x 2. Memory/cog: alert, oriented x 3. grossly intact to conversational testing. Diagnostics Vital Signs (24Hr): Vital Signs - 24 hr 01/28/23 06:00 01/28/23 18:00 Temperature 97.4 F 97.8 F Pulse Rate 88 100 Respiratory Rate 16 24 H Blood Pressure 136/84 133/89 Pulse Oximetry 100 100 Oxygen Delivery Method Room Air Room Air BMI result Body Mass Index 27.5 Medications Medications Current Medications Acetaminophen (Acetaminophen 325 Mg Tablet) 650 mg PO Q6H PRN PRN Reason: Headache/Pain Mild Scale (1-3) Last Admin: 01/28/23 15:21 Dose: 650 mg Al Hydroxide/Mg Hydroxide (Magnesium Hydrox/Alum Hydrox 30 Ml Oral.Susp) 30 ml PO Q6H PRN PRN Reason: Heartburn/Nausea Alprazolam (Alprazolam 0.5 Mg Tablet) 1 mg PO TID [facility] Last Admin: 01/28/23 14:12 Dose: 1 mg Amphetamine/Dextroamphetamine (Amphetamine Mixed Salts 20 Mg Tablet) 20 mg PO DAILY [facility] Last Admin: 01/28/23 08:20 Dose: 20 mg Amphetamine/Dextroamphetamine (Amphetamine Mixed Salts 10 Mg Tablet) 30 mg PO 1200 [facility] Last Admin: 01/28/23 11:07 Dose: 30 mg Benzocaine (Benzocaine 20 % Oral Gel 9 Gm Tube) 1 appl MUCOUS MEM Q4H PRN; Protocol PRN Reason: gum pain Last Admin: 01/15/23 12:47 Dose: 1 appl Diphenhydramine HCl (Diphenhydramine Hcl 25 Mg Capsule) 50 mg PO Q4H PRN PRN Reason: Itching Last Admin: 01/28/23 15:21 Dose: 50 mg Gabapentin (Gabapentin 300 Mg Capsule) 300 mg PO TID [facility] Last Admin: 01/28/23 14:11 Dose: 300 mg Magnesium Hydroxide (Milk Of Magnesia 30 Ml Oral.Susp) 30 ml PO DAILY PRN PRN Reason: Constipation Olanzapine (Olanzapine 5 Mg Tablet) 5 mg PO Q4H PRN PRN Reason: psychosis, bryce, agitation Ondansetron HCl (Ondansetron Odt 4 Mg Tab.Rapdis) 4 mg TRANSLINGU Q8H PRN PRN Reason: Nausea Last Admin: 01/15/23 17:17 Dose: 4 mg Propranolol HCl (Propranolol Hcl 10 Mg Tablet) 15 mg PO TID [facility]; Protocol Last Admin: 01/28/23 14:11 Dose: 15 mg Allergies Allergies Allergy/AdvReac Type Severity Reaction Status Date / Time gluten AdvReac Gastrointestinal Verified 01/13/23 23:29 Upset lorazepam [From Ativan] AdvReac Headache Verified 10/22/20 19:11 wheat AdvReac Gastrointestinal Verified 01/13/23 23:29 Upset Assessment & Plan Assessment & Plan (1) Bipolar 1 disorder, manic, mild: Status: Acute Code(s): F31.11 - Bipolar disorder, current episode manic without psychotic features, mild Plan Mrs. Peralta is a 47 year-old woman with hx of Bipolar Disorder who self presented to [facility] ED reporting feeling tired, with nausea, not sleeping, more anxious. Pt was recently discharged from [facility] after 3 week admission. Pt presents with tangential speech, hyperverbal but not pressured. No SI/HI. No psychosis or delusional content noted or reported. Pt reports not sleeping well. We discussed risks, benefits and alternative treatment options. Pt reports her medications have been helpful including combination or stimulant and xanax. Pt not open to other medication options that may include a mood stabilizer even if less sedation options than depakote. She does not appear at imminent risk of harm to self or others at this point. PLAN 1. Admit to M5, CV 15 minutes checks for safety 2. continue lower dose of adderall- at this point pt reports she uses for physical fatigue. She has not slept in days so in agreement to reduce dose in order aid sleep. but explained that may worsen hypomania or bryce- which pt does not think she has. 3. Obtain collateral information 4. Aftercare plan 01/15: Continue current treatment plan. 01/16: Continue treatment plan unchanged. 01/17/23: Change Adderall dosing to 20 mg a.m. 30 mg noon Change Benadryl to 50 mg [id number] prn Discontinue Trazodone 01/20/23 Family meeting 01/23/23. 01/21/23 Increase Propranolol to 15 mg tid 01/23/23 Continue current regime. 01/24/23 Continue current regime and plan Message left to schedule peer review per [facility] request. 01/25: Continue current plan. 01/27/23: Continue current plan. 01/28 continue tx. Reason for continued inpatient stay Substantial Risk for: stable for discharge Time Spent With Patient Time: Total time managing care of this patient today ____ minutes.
[2023-01-29] MEDS: diphenhydrAMINE HCL 25 MG CAPSULE 50 MG PO ×3 (02:04→21:58)
[2023-01-29] MEDS: Acetaminophen 325 MG TABLET 650 MG PO ×3 (02:04→20:33)
[2023-01-29] MEDS: Ondansetron ODT 4 MG TAB.RAPDIS TRANSLINGU ×2 (02:54→10:25)
[2023-01-29 02:57] VITALS: BP 132/86; PULSE 88; RESP 20; TEMP 36.6; O2SAT 99
[2023-01-29] MEDS: ALPRAZolam 0.5 MG TABLET 1 MG PO (04:54)
[2023-01-29] MEDS: Amphetamine Mixed Salts 20 MG TABLET PO (08:36)
[2023-01-29] MEDS: Gabapentin 300 MG CAPSULE PO ×2 (08:37→20:34)
[2023-01-29] MEDS: Propranolol HCL 10 MG TABLET 15 MG PO ×3 (08:37→20:32)
[2023-01-29 09:59] VITALS: BP 135/83; PULSE 98; RESP 16; TEMP 36.5; O2SAT 89
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
[2023-01-29] MEDS: Amphetamine Mixed Salts 10 MG TABLET 30 MG PO (12:36)
[2023-01-29] MEDS: diazePAM 5 MG TABLET 10 MG PO ×2 (14:33→20:33)
[2023-01-29 20:27] VITALS: BP 133/86; PULSE 88; TEMP 36.4
[2023-01-30] MEDS: diphenhydrAMINE HCL 25 MG CAPSULE 50 MG PO (03:39)
[2023-01-30] MEDS: Ondansetron ODT 4 MG TAB.RAPDIS TRANSLINGU ×2 (03:39→20:10)
[2023-01-30] MEDS: Acetaminophen 325 MG TABLET 650 MG PO ×3 (03:40→20:11)
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
[2023-01-30 08:00] VITALS: BP 131/89; PULSE 88; RESP 16; TEMP 36.2; O2SAT 98
[2023-01-30] MEDS: diazePAM 5 MG TABLET 10 MG PO ×3 (08:12→20:12)
[2023-01-30] MEDS: Amphetamine Mixed Salts 20 MG TABLET PO (08:12)
[2023-01-30] MEDS: Gabapentin 300 MG CAPSULE PO ×2 (08:12→20:11)
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
--- NOTE | 2023-01-30 10:18 | HO.PSYCHPN ---
Subjective Subjective Date of Service: 01/30/23 Reason For Visit: Bipolar disorder w/ psychosis Subjective Notes: Conditional Voluntary Healthcare Proxy: No Guardianship: No Medical Problems Affecting Mental Status: No Interim History: 47 yo WF presents upset and confused by room issues last pm- roommate could not deal with having someone in her room so patient was moved to a room that was having ants so patient could not tolerate- pt felt she had to sit out in [place] as she didn't have alternative ( though I think several were offered none worked for her) and didn't sleep most of the nigh t- now fearful this will all reflect badly on her and her regular provider on unit won't believe she is not bipolar and just PTSD. or that it will have some ramification on her at court with custody- has pending divorce hearing this week. On the good side diazepam has completely cleared up jaw/headache problem! Also later asked nurse for something to take for sleep at night if she wakes up gave her low dose trazodone 25mg mr pierce Very put off by chaos around room change, seems more disorganized in her thoughts but ofcourse she didn't get to sleep Medication Compliance: Yes Side effects from medications: No Attending Groups: Intermittent Review of Systems Acute medical concerns: No Medical Review of Systems: changed (better re jaw/headache!) Mental Status Exam Mental Status Exam Patient Appearance: Appropriate Patient Orientation: Person, Place, Time and Situation Level of Consciousness: Awake Patient Behavior: Talkative, Restless, Anxious and Good Eye Contact Mood Description: Apprehensive Affect Description: Suspicious and Apprehensive Patient Cognition Impaired: No Ability to Follow Directions: Good Speech Pattern: Rambling Hallucinations: None Delusions: Not Present Thought Process: Distracted and Confusion Thought Content: positive for Disorganized Depressive Symptoms: Difficulty Sleeping and Difficulty Concentrating Judgement: Fair Diagnostics Vital Signs (24Hr): Vital Signs - 24 hr 01/29/23 20:27 Temperature 97.6 F Pulse Rate 88 Blood Pressure 133/86 BMI result Body Mass Index 27.5 Medications Medications Current Medications Acetaminophen (Acetaminophen 325 Mg Tablet) 650 mg PO Q6H PRN PRN Reason: Headache/Pain Mild Scale (1-3) Last Admin: 01/30/23 03:40 Dose: 650 mg Al Hydroxide/Mg Hydroxide (Magnesium Hydrox/Alum Hydrox 30 Ml Oral.Susp) 30 ml PO Q6H PRN PRN Reason: Heartburn/Nausea Amphetamine/Dextroamphetamine (Amphetamine Mixed Salts 20 Mg Tablet) 20 mg PO DAILY [facility] Last Admin: 01/30/23 08:12 Dose: 20 mg Amphetamine/Dextroamphetamine (Amphetamine Mixed Salts 10 Mg Tablet) 30 mg PO 1200 [facility] Last Admin: 01/29/23 12:36 Dose: 30 mg Benzocaine (Benzocaine 20 % Oral Gel 9 Gm Tube) 1 appl MUCOUS MEM Q4H PRN; Protocol PRN Reason: gum pain Last Admin: 01/15/23 12:47 Dose: 1 appl Diazepam (Diazepam 5 Mg Tablet) 10 mg PO TID [facility] Last Admin: 01/30/23 08:12 Dose: 10 mg Diphenhydramine HCl (Diphenhydramine Hcl 25 Mg Capsule) 50 mg PO Q4H PRN PRN Reason: Itching Last Admin: 01/30/23 03:39 Dose: 50 mg Gabapentin (Gabapentin 300 Mg Capsule) 300 mg PO BID [facility] Last Admin: 01/30/23 08:12 Dose: 300 mg Magnesium Hydroxide (Milk Of Magnesia 30 Ml Oral.Susp) 30 ml PO DAILY PRN PRN Reason: Constipation Olanzapine (Olanzapine 5 Mg Tablet) 5 mg PO Q4H PRN PRN Reason: psychosis, bryce, agitation Ondansetron HCl (Ondansetron Odt 4 Mg Tab.Rapdis) 4 mg TRANSLINGU Q8H PRN PRN Reason: Nausea Last Admin: 01/30/23 03:39 Dose: 4 mg Propranolol HCl (Propranolol Hcl 10 Mg Tablet) 15 mg PO TID [facility]; Protocol Last Admin: 01/29/23 20:32 Dose: 15 mg Allergies Allergies Allergy/AdvReac Type Severity Reaction Status Date / Time gluten AdvReac Gastrointestinal Verified 01/13/23 23:29 Upset lorazepam [From Ativan] AdvReac Headache Verified 10/22/20 19:11 wheat AdvReac Gastrointestinal Verified 01/13/23 23:29 Upset Assessment & Plan Assessment & Plan (1) Bipolar 1 disorder, manic, mild: Status: Acute Code(s): F31.11 - Bipolar disorder, current episode manic without psychotic features, mild Assessment and Plan: pt denies this 01/29 Plan Mrs. Peralta is a 47 year-old woman with hx of Bipolar Disorder who self presented to [facility] ED reporting feeling tired, with nausea, not sleeping, more anxious. Pt was recently discharged from [facility] after 3 week admission. Pt presents with tangential speech, hyperverbal but not pressured. No SI/HI. No psychosis or delusional content noted or reported. Pt reports not sleeping well. We discussed risks, benefits and alternative treatment options. Pt reports her medications have been helpful including combination or stimulant and xanax. Pt not open to other medication options that may include a mood stabilizer even if less sedation options than depakote. She does not appear at imminent risk of harm to self or others at this point. PLAN 1. Admit to M5, CV 15 minutes checks for safety 2. continue lower dose of adderall- at this point pt reports she uses for physical fatigue. She has not slept in days so in agreement to reduce dose in order aid sleep. but explained that may worsen hypomania or bryce- which pt does not think she has. 3. Obtain collateral information 4. Aftercare plan 01/15: Continue current treatment plan. 01/16: Continue treatment plan unchanged. 01/17/23: Change Adderall dosing to 20 mg a.m. 30 mg noon Change Benadryl to 50 mg [id number] prn Discontinue Trazodone 01/20/23 Family meeting 01/23/23. 01/21/23 Increase Propranolol to 15 mg tid 01/23/23 Continue current regime. 01/24/23 Continue current regime and plan Message left to schedule peer review per [facility] request. 01/25: Continue current plan. 01/27/23: Continue current plan. 01/28 continue tx. 01/29 change xanax to diazepam for weekend- seems like adderall dose is high for someone with anxiety like this- and thought disorganziation? 01/30 jaw better with diazepam, pt more confused and disorganized today after several room shifts due to issues of other patients- thrown off quite a bit by this and didn't get sleep - Patient educated on: therapeutic strategies Informed Consent: further education needed Reason for continued inpatient stay Substantial Risk for: inability to function and rapid decompensation Time Spent With Patient Time: Total time managing care of this patient today ____ minutes.
--- NOTE | 2023-01-30 10:27 | PC.NURSE ---
pt asked the copywriter for milk. TW informed pt there should be milk in the kitchen, pt responded, well theres not . this copywriter explained that an order would be delivered shortly that should contain milk. Pt stared at this copywriter and rolled her eyes. This copywriter told pt she apologizes but that the pt could voice her concerns on her complaint sheet. pt walked away.
[2023-01-30] MEDS: Propranolol HCL 10 MG TABLET 15 MG PO ×3 (10:31→20:13)
[2023-01-30] MEDS: Amphetamine Mixed Salts 10 MG TABLET 30 MG PO (11:31)
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
[2023-01-30 20:10] VITALS: BP 133/79; PULSE 88; TEMP 36.3
[2023-01-31] MEDS: Acetaminophen 325 MG TABLET 650 MG PO ×2 (01:09→21:05)
[2023-01-31] MEDS: diphenhydrAMINE HCL 25 MG CAPSULE 50 MG PO ×2 (01:10→23:13)
[2023-01-31] MEDS: Ondansetron ODT 4 MG TAB.RAPDIS TRANSLINGU (04:10)
[2023-01-31 05:26] VITALS: BP 148/78; PULSE 84; RESP 18; TEMP 36.4; O2SAT 98
--- NOTE | 2023-01-31 05:52 | PC.NURSE ---
PT REPORTS FEELING TACHYCARDIC AND LIKE SHE IS IN AFIB . PTS VITAL SIGNS WERE TAKEN IN A LAYING, SITTING, AND STANDING POSITION. BLOOD PRESSURE WAS SLIGHLTY ELEVATED, HEART RATE NORMAL, O2 SAT 99-100%, RESP APPEAR EVEN AND NONLABORED ALTHOUGH PT REPORTS SHORTNESS OF BREATH. PT REPORTS NAUSEA AND VOMITING. GIVEN ZOFRAN. PT CONTINUED TO GAG AND REPORT VOMITING HOWEVER NO VOMITING WAS WITNESSED. PT WAS ARGUMENTATIVE REGARDING HER VITALS AND INSISTED THAT DOCTOR KNOW THAT SHE IS GOING INTO AFIB AND GOING TO HAVE A SEIZURE . RN IS CONTINUING TO MONITOR PT. ZEESHAN TOMPKINS MADE AWARE VIA [employer].
[2023-01-31 06:00] VITALS: BP 145/76; PULSE 99; RESP 16; TEMP 36.5; O2SAT 99
[2023-01-31] MEDS: Gabapentin 300 MG CAPSULE PO ×2 (08:25→21:07)
[2023-01-31] MEDS: Propranolol HCL 10 MG TABLET 15 MG PO ×3 (08:25→21:06)
[2023-01-31] MEDS: diazePAM 5 MG TABLET 10 MG PO ×3 (08:26→21:07)
[2023-01-31] MEDS: Amphetamine Mixed Salts 20 MG TABLET PO (08:26)
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
[2023-01-31 18:00] VITALS: BP 132/75; PULSE 87; RESP 20; TEMP 36.8; O2SAT 100
[2023-02-01] MEDS: Acetaminophen 325 MG TABLET 650 MG PO ×3 (04:41→21:13)
[2023-02-01] MEDS: diphenhydrAMINE HCL 25 MG CAPSULE 50 MG PO (04:41)
[2023-02-01 08:00] VITALS: BP 126/72; PULSE 80; RESP 16; TEMP 36.2; O2SAT 99
[2023-02-01] MEDS: diazePAM 5 MG TABLET 10 MG PO ×3 (08:09→21:12)
[2023-02-01] MEDS: Propranolol HCL 10 MG TABLET 15 MG PO ×3 (08:09→21:23)
[2023-02-01] MEDS: Gabapentin 300 MG CAPSULE PO ×2 (08:09→21:15)
[2023-02-01] MEDS: Amphetamine Mixed Salts 20 MG TABLET PO ×2 (08:09→12:37)
[2023-02-01] MEDS: Benzocaine 20 % Oral Gel 9 GM TUBE 1 APPL MUCOUS MEM (08:59)
--- NOTE | 2023-02-01 12:37 | PC.NURSE ---
pt has one time rx for adderall. med will not scan, pharmacy called and advised to override due to computer problem on thier end. Witnessed correct med give by Tennille Almanza RN
[2023-02-01 14:23] VITALS: BP 169/102; PULSE 91
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
[2023-02-01 21:15] VITALS: BP 148/78; PULSE 83; TEMP 36.2; O2SAT 98
[2023-02-02] MEDS: Hydrocortisone 1 % Cream 28.35 GM TUBE 1 APPL TOPICAL (05:35)
[2023-02-02] MEDS: Acetaminophen 325 MG TABLET 650 MG PO ×2 (05:36→20:18)
[2023-02-02 08:15] VITALS: BP 131/84; PULSE 75; RESP 16; TEMP 36.1; O2SAT 99
[2023-02-02] MEDS: Dextroamphetamine/Amphetamine XR 10 MG CAP.ER.24H 20 MG PO (08:19)
[2023-02-02] MEDS: Gabapentin 300 MG CAPSULE PO ×2 (08:19→20:17)
[2023-02-02] MEDS: Propranolol HCL 10 MG TABLET 15 MG PO ×3 (08:20→20:17)
[2023-02-02] MEDS: diazePAM 5 MG TABLET 10 MG PO ×3 (08:20→20:18)
[2023-02-02] MEDS: Benzocaine 20 % Oral Gel 9 GM TUBE 1 APPL MUCOUS MEM (10:24)
[2023-02-02] MEDS: Amphetamine Mixed Salts 20 MG TABLET PO (12:03)
[2023-02-02] MEDS: Ondansetron ODT 4 MG TAB.RAPDIS TRANSLINGU ×2 (12:03→18:37)
--- NOTE | 2023-02-02 12:21 | HO.PSYCHPN ---
Subjective Subjective Date of Service: 02/02/23 Reason For Visit: Bipolar disorder w/ psychosis Subjective Notes: Conditional Voluntary (verbal ) and 3 Day (Verbal ) Healthcare Proxy: No Guardianship: No Medical Problems Affecting Mental Status: No Interim History: Pt requests I contact her aunt who will come in for a family meeting, offer her assist, a place to stay, and will help her through her legal process. Message left for Mary Bradford [phone]. No call was returned this day. Parents have contacted team to report that pt has made calls to many different family members asking for their assistance. They are not responding as they are concerned for pt's health and well being and believe she will require ongoing treatment. Pt reports her friend was waiting for tw in the parking lot yesterday and we missed an opportunity to meet with her. Team reports ongoing lability. They report pt was overheard on the phone last evening verbalizing that I will kill that b---- and with threats to discharge and disappear. Discussed plan for court date tomorrow. Pt unsure, she will consider if she would like a letter sent indicating she will not attend due to hospitalization. Asks about retracting TDN. Discussion. Team has received calls from pt's assigned compliance attorney for the children who report a rambling message was left without structure. Reviewed our concerns about pt's condition with her. Pt states she is still working on finding family support to prove to the team she can discharge. She spent this day and this evening telling team that family, attorneys, providers were calling to discuss her discharge. Also reports an upcoming disability hearing in [place] that she will need help with a phone call with. Assured pt tw could make that call with her when she was ready to do so. Medication Compliance: Yes Side effects from medications: No Attending Groups: No Review of Systems Acute medical concerns: No Medical Review of Systems: unchanged Mental Status Exam Mental Status Exam Patient Appearance: Appropriate Patient Orientation: Person, Place, Time and Situation Level of Consciousness: Alert Patient Behavior: Guarded, Talkative, Suspicious, Anxious, Fearful, Resistive to Care, Avoidant, Distractible and Good Eye Contact Mood Description: Suspicious, Constricted, Anxious and Apprehensive Affect Description: Labile Patient Cognition Impaired: No Ability to Follow Directions: Fair Speech Pattern: Perseverating, Spontaneous Speech, Soft-Spoken, Excessive and Pressured Memory Description: Episodic Impaired Hallucinations: None Perceptual Disturbances: Depersonalization and Derealization Thought Content: positive for Racing, positive for Circumstantial, positive for Perseveration and positive for Suicidal Ideation (denies SI, plan, intent) Depressive Symptoms: Increased Anxiety, Insomnia and Thoughts of /Suicide (denies SI, plan or intent) Abnormal Motor Activity Signs and Symptoms: Agitation and Restlessness Judgement: Fair Diagnostics Vital Signs (24Hr): Vital Signs - 24 hr 02/01/23 14:23 02/01/23 21:15 02/02/23 08:15 Temperature 97.1 F 97 F Pulse Rate 91 83 75 Respiratory Rate 16 Blood Pressure 169/102 H 148/78 H 131/84 Pulse Oximetry 98 99 Oxygen Delivery Method Room Air Room Air BMI result Body Mass Index 27.5 Medications Medications Current Medications Acetaminophen (Acetaminophen 325 Mg Tablet) 650 mg PO Q6H PRN PRN Reason: Headache/Pain Mild Scale (1-3) Last Admin: 02/02/23 05:36 Dose: 650 mg Al Hydroxide/Mg Hydroxide (Magnesium Hydrox/Alum Hydrox 30 Ml Oral.Susp) 30 ml PO Q6H PRN PRN Reason: Heartburn/Nausea Amphetamine/Dextroamphetamine (Dextroamphetamine/Amphetamine Xr 10 Mg Cap.Er.24h) 20 mg PO DAILY [facility] Last Admin: 02/02/23 08:19 Dose: 20 mg Amphetamine/Dextroamphetamine (Amphetamine Mixed Salts 20 Mg Tablet) 20 mg PO DAILY@1200 [facility] Last Admin: 02/02/23 12:03 Dose: 20 mg Benzocaine (Benzocaine 20 % Oral Gel 9 Gm Tube) 1 appl MUCOUS MEM Q4H PRN; Protocol PRN Reason: gum pain Last Admin: 02/02/23 10:24 Dose: 1 appl Diazepam (Diazepam 5 Mg Tablet) 10 mg PO TID [facility] Last Admin: 02/02/23 08:20 Dose: 10 mg Diphenhydramine HCl (Diphenhydramine Hcl 25 Mg Capsule) 50 mg PO Q4H PRN PRN Reason: Itching Last Admin: 02/01/23 04:41 Dose: 50 mg Gabapentin (Gabapentin 300 Mg Capsule) 300 mg PO BID [facility] Last Admin: 02/02/23 08:19 Dose: 300 mg Hydrocortisone (Hydrocortisone 1 % Cream 28.35 Gm Tube) 1 appl TOPICAL BID PRN; Protocol PRN Reason: rash on legs Last Admin: 02/02/23 05:35 Dose: 1 appl Magnesium Hydroxide (Milk Of Magnesia 30 Ml Oral.Susp) 30 ml PO DAILY PRN PRN Reason: Constipation Olanzapine (Olanzapine 5 Mg Tablet) 5 mg PO Q4H PRN PRN Reason: psychosis, bryce, agitation Ondansetron HCl (Ondansetron Odt 4 Mg Tab.Rapdis) 4 mg TRANSLINGU Q8H PRN PRN Reason: Nausea Last Admin: 02/02/23 12:03 Dose: 4 mg Propranolol HCl (Propranolol Hcl 10 Mg Tablet) 15 mg PO TID CHARLIE; Protocol Last Admin: 02/02/23 08:20 Dose: 15 mg Trazodone HCl (Trazodone Hcl 25 Mg Halftab) 25 mg PO BEDTIME MRX1 PRN PRN Reason: trouble sleeping Allergies Allergies Allergy/AdvReac Type Severity Reaction Status Date / Time gluten AdvReac Gastrointestinal Verified 01/13/23 23:29 Upset lorazepam [From Ativan] AdvReac Headache Verified 10/22/20 19:11 wheat AdvReac Gastrointestinal Verified 01/13/23 23:29 Upset Assessment & Plan Assessment & Plan (1) Bipolar 1 disorder, manic, mild: Status: Acute Code(s): F31.11 - Bipolar disorder, current episode manic without psychotic features, mild Assessment and Plan: pt denies this 01/29 Plan Mrs. Peralta is a 47 year-old woman with hx of Bipolar Disorder who self presented to [facility] ED reporting feeling tired, with nausea, not sleeping, more anxious. Pt was recently discharged from [facility] after 3 week admission. Pt presents with tangential speech, hyperverbal but not pressured. No SI/HI. No psychosis or delusional content noted or reported. Pt reports not sleeping well. We discussed risks, benefits and alternative treatment options. Pt reports her medications have been helpful including combination or stimulant and xanax. Pt not open to other medication options that may include a mood stabilizer even if less sedation options than depakote. She does not appear at imminent risk of harm to self or others at this point. PLAN 1. Admit to M5, CV 15 minutes checks for safety 2. continue lower dose of adderall- at this point pt reports she uses for physical fatigue. She has not slept in days so in agreement to reduce dose in order aid sleep. but explained that may worsen hypomania or bryce- which pt does not think she has. 3. Obtain collateral information 4. Aftercare plan 01/15: Continue current treatment plan. 01/16: Continue treatment plan unchanged. 01/17/23: Change Adderall dosing to 20 mg a.m. 30 mg noon Change Benadryl to 50 mg [id number] prn Discontinue Trazodone 01/20/23 Family meeting 01/23/23. 01/21/23 Increase Propranolol to 15 mg tid 01/23/23 Continue current regime. 01/24/23 Continue current regime and plan Message left to schedule peer review per [facility] request. 01/25: Continue current plan. 01/27/23: Continue current plan. 01/28 continue tx. 01/29 change xanax to diazepam for weekend- seems like adderall dose is high for someone with anxiety like this- and thought disorganziation? 01/30 jaw better with diazepam, pt more confused and disorganized today after several room shifts due to issues of other patients- thrown off quite a bit by this and didn't get sleep - 01/31/23- Pt declines change of medication treatment plan. Demands discharge, refuses to sign three day notice Possible Section 7. 02/02/23 TDN expires 02/03- Will plan to file Section [address] assessment of further care and treatment. Patient educated on: therapeutic strategies Informed Consent: does not understand Reason for continued inpatient stay Substantial Risk for: harm to self, harm to others, inability to function and rapid decompensation Time Spent With Patient Time: Total time managing care of this patient today ____ minutes.
[2023-02-02 20:15] VITALS: BP 136/72; PULSE 74; TEMP 36.6; O2SAT 99
[2023-02-02] MEDS: Magnesium Hydrox/Alum Hydrox 30 ML ORAL.SUSP PO (20:19)
[2023-02-03 06:00] VITALS: BP 117/79; PULSE 79; RESP 18; TEMP 36.5
[2023-02-03] MEDS: Acetaminophen 325 MG TABLET 650 MG PO ×3 (06:19→23:14)
[2023-02-03] MEDS: diazePAM 5 MG TABLET 10 MG PO ×4 (08:22→19:31)
[2023-02-03] MEDS: Propranolol HCL 10 MG TABLET 15 MG PO ×3 (08:22→19:31)
[2023-02-03] MEDS: Gabapentin 300 MG CAPSULE PO ×2 (08:22→19:31)
[2023-02-03] MEDS: Dextroamphetamine/Amphetamine XR 10 MG CAP.ER.24H 20 MG PO (08:22)
--- NOTE | 2023-02-03 10:56 | P.PNPSI_ITS ---
Subjective Subjective Date of Service: 02/03/23 Reason For Visit: Bipolar disorder w/ psychosis Subjective Notes: Section 7 Healthcare Proxy: No Guardianship: No Medical Problems Affecting Mental Status: No Interim History: A difficult day. Section [address] 02/10/23. Pt expressed anger, again thought process, content, expression is repetitive, circular. Pt focus is on what has happened to her in her personal life. Attempted to re-assure her this is not forgotton or diminished in any way, however, resulting symptoms need treatment so she may go home to her children and her home. She has difficulty hearing this. Spent much time on the phone this afternoon-pressured, angry, verbally caustic, appears manic. Asked to meet with screenplay writer later in the day. Scheduled 4pm, however, she could not meet due to making several calls. Call from pt's aunt, Mary Bradford (mother's sister) [phone]. will support pt in any way helpful. Family is in support of treatment and they do not plan to attempt to take pt out of the hospital. will call pt martine and offer her ongoing support. Olanzapine added for bryce sx mgt Adderall held due to bryce sx presentation. Medication Compliance: Yes Side effects from medications: No Attending Groups: No Review of Systems Acute medical concerns: No Medical Review of Systems: unchanged Mental Status Exam Mental Status Exam Patient Appearance: Appropriate Patient Orientation: Person, Place, Time and Situation Level of Consciousness: Alert Patient Behavior: Guarded, Talkative, Suspicious, Aggressive, Anxious, Fearful, Resistive to Care, Avoidant, Distractible and Good Eye Contact Mood Description: Suspicious, Constricted, Hostile, Anxious and Apprehensive Affect Description: Labile Patient Cognition Impaired: No Ability to Follow Directions: Fair Speech Pattern: Perseverating, Spontaneous Speech, Rambling, Excessive and Pressured Memory Description: Episodic Impaired Hallucinations: None Perceptual Disturbances: Depersonalization and Derealization Thought Process: Distracted and Rumination Thought Content: positive for Racing, positive for Circumstantial, positive for Perseveration and positive for Suicidal Ideation (denies SI, plan, intent) Depressive Symptoms: Increased Anxiety, Insomnia and Thoughts of /Suicide (denies SI, plan or intent) Abnormal Motor Activity Signs and Symptoms: Agitation and Restlessness Judgement: Poor Diagnostics Vital Signs (24Hr): Vital Signs - 24 hr 02/02/23 20:15 02/03/23 06:00 Temperature 97.8 F 97.7 F Pulse Rate 74 79 Respiratory Rate 18 Blood Pressure 136/72 117/79 Pulse Oximetry 99 Oxygen Delivery Method Room Air BMI result Body Mass Index 27.5 Medications Medications Current Medications Acetaminophen (Acetaminophen 325 Mg Tablet) 650 mg PO Q6H PRN PRN Reason: Headache/Pain Mild Scale (1-3) Last Admin: 02/03/23 06:19 Dose: 650 mg Al Hydroxide/Mg Hydroxide (Magnesium Hydrox/Alum Hydrox 30 Ml Oral.Susp) 30 ml PO Q6H PRN PRN Reason: Heartburn/Nausea Last Admin: 02/02/23 20:19 Dose: 30 ml Amphetamine/Dextroamphetamine (Dextroamphetamine/Amphetamine Xr 10 Mg Cap.Er.24h) 20 mg PO DAILY [facility] Last Admin: 02/03/23 08:22 Dose: 20 mg Amphetamine/Dextroamphetamine (Amphetamine Mixed Salts 20 Mg Tablet) 20 mg PO DAILY@1200 [facility] Last Admin: 02/02/23 12:03 Dose: 20 mg Benzocaine (Benzocaine 20 % Oral Gel 9 Gm Tube) 1 appl MUCOUS MEM Q4H PRN; Protocol PRN Reason: gum pain Last Admin: 02/02/23 10:24 Dose: 1 appl Diazepam (Diazepam 5 Mg Tablet) 10 mg PO TID [facility] Last Admin: 02/03/23 08:22 Dose: 10 mg Diphenhydramine HCl (Diphenhydramine Hcl 25 Mg Capsule) 50 mg PO Q4H PRN PRN Reason: Itching Last Admin: 02/01/23 04:41 Dose: 50 mg Gabapentin (Gabapentin 300 Mg Capsule) 300 mg PO BID [facility] Last Admin: 02/03/23 08:22 Dose: 300 mg Hydrocortisone (Hydrocortisone 1 % Cream 28.35 Gm Tube) 1 appl TOPICAL BID PRN; Protocol PRN Reason: rash on legs Last Admin: 02/02/23 05:35 Dose: 1 appl Magnesium Hydroxide (Milk Of Magnesia 30 Ml Oral.Susp) 30 ml PO DAILY PRN PRN Reason: Constipation Olanzapine (Olanzapine 5 Mg Tablet) 5 mg PO Q4H PRN PRN Reason: psychosis, bryce, agitation Ondansetron HCl (Ondansetron Odt 4 Mg Tab.Rapdis) 4 mg TRANSLINGU Q8H PRN PRN Reason: Nausea Last Admin: 02/02/23 18:37 Dose: 4 mg Propranolol HCl (Propranolol Hcl 10 Mg Tablet) 15 mg PO TID CHARLIE; Protocol Last Admin: 02/03/23 08:22 Dose: 15 mg Trazodone HCl (Trazodone Hcl 25 Mg Halftab) 25 mg PO BEDTIME MRX1 PRN PRN Reason: trouble sleeping Allergies Allergies Allergy/AdvReac Type Severity Reaction Status Date / Time gluten AdvReac Gastrointestinal Verified 01/13/23 23:29 Upset lorazepam [From Ativan] AdvReac Headache Verified 10/22/20 19:11 wheat AdvReac Gastrointestinal Verified 01/13/23 23:29 Upset Assessment & Plan Assessment & Plan (1) Bipolar 1 disorder, manic, mild: Status: Acute Code(s): F31.11 - Bipolar disorder, current episode manic without psychotic features, mild Assessment and Plan: pt denies this 01/29 Plan Mrs. Peralta is a 47 year-old woman with hx of Bipolar Disorder who self presented to [facility] ED reporting feeling tired, with nausea, not sleeping, more anxious. Pt was recently discharged from [facility] after 3 week admission. Pt presents with tangential speech, hyperverbal but not pressured. No SI/HI. No psychosis or delusional content noted or reported. Pt reports not sleeping well. We discussed risks, benefits and alternative treatment options. Pt reports her medications have been helpful including combination or stimulant and xanax. Pt n ot open to other medication options that may include a mood stabilizer even if less sedation options than depakote. She does not appear at imminent risk of harm to self or others at this point. PLAN 1. Admit to M5, CV 15 minutes checks for safety 2. continue lower dose of adderall- at this point pt reports she uses for physical fatigue. She has not slept in days so in agreement to reduce dose in order aid sleep. but explained that may worsen hypomania or bryce- which pt does not think she has. 3. Obtain collateral information 4. Aftercare plan 01/15: Continue current treatment plan. 01/16: Continue treatment plan unchanged. 01/17/23: Change Adderall dosing to 20 mg a.m. 30 mg noon Change Benadryl to 50 mg [id number] prn Discontinue Trazodone 01/20/23 Family meeting 7/2/23. 01/21/23 Increase Propranolol to 15 mg tid 01/23/23 Continue current regime. 01/24/23 Continue current regime and plan Message left to schedule peer review per [facility] request. 01/25: Continue current plan. 01/27/23: Continue current plan. 01/28 continue tx. 01/29 change xanax to diazepam for weekend- seems like adderall dose is high for someone with anxiety like this- and thought disorganziation? 01/30 jaw better with diazepam, pt more confused and disorganized today after several room shifts due to issues of other patients- thrown off quite a bit by this and didn't get sleep - 01/31/23- Pt declines change of medication treatment plan. Demands discharge, refuses to sign three day notice Possible Section 7. 02/02/23 TDN expires 02/03- Will plan to file Section [address] assessment of further care and treatment. 02/03/23 Hold Adderall Zyprexa 10 mg bid and prn Valium prn x 1 dose Section 7, court 02/10/23 Informed Consent: understands Reason for continued inpatient stay Substantial Risk for: inability to function and rapid decompensation Time Spent With Patient Time: Total time managing care of this patient today ____ minutes.
[2023-02-03] MEDS: Amphetamine Mixed Salts 20 MG TABLET PO (11:01)
[2023-02-03 14:43] VITALS: BP 152/94; PULSE 100
--- NOTE | 2023-02-03 14:45 | PC.NURSE ---
pt observed making numerous phone calls making threats and then hanging up. once called and left message for daughters, hung up and turned around to staff and said are you happy, is that your entertainment? . swearing and cont to make threatening calls. agitated.
--- NOTE | 2023-02-03 15:24 | PC.NURSE ---
Pt on phone with children and was over heard saying to them Darcy doesn't want you to have a Mommy I hope you guys have a good life Take care of each other because I'm not going to be in your lives anymore . I want you to know I love you, but you wont be seeing me anymore .Pt redirected off phone at this time.
[2023-02-03] MEDS: Hydrocortisone 1 % Cream 28.35 GM TUBE 1 APPL TOPICAL (18:38)
[2023-02-03] MEDS: diphenhydrAMINE HCL 25 MG CAPSULE 50 MG PO ×2 (18:41→23:14)
[2023-02-03] MEDS: Ondansetron ODT 4 MG TAB.RAPDIS TRANSLINGU (18:46)
[2023-02-03] MEDS: traZODone HCL 25 MG HALFTAB PO ×2 (19:31→21:52)
[2023-02-03 19:35] VITALS: BP 145/85; PULSE 91; TEMP 36.1
[2023-02-03] MEDS: OLANZapine 10 MG TABLET PO (23:20)
[2023-02-04 06:00] VITALS: BP 133/85; PULSE 120; RESP 18
[2023-02-04] MEDS: Propranolol HCL 10 MG TABLET 15 MG PO ×3 (08:02→20:00)
[2023-02-04] MEDS: OLANZapine 10 MG TABLET PO (08:02)
[2023-02-04] MEDS: Gabapentin 300 MG CAPSULE PO ×2 (08:02→20:00)
[2023-02-04] MEDS: diazePAM 5 MG TABLET 10 MG PO ×3 (08:03→20:00)
--- NOTE | 2023-02-04 10:44 | HO.PSYCHPN ---
Subjective Subjective Date of Service: 02/04/23 Reason For Visit: Bipolar disorder w/ psychosis Subjective Notes: Section 7 Healthcare Proxy: No Guardianship: No Medical Problems Affecting Mental Status: No Interim History: Less labile, continues with anger, accusations, verbally caustic. Reports aunt will visit today. Message received from ex- Jules asking to arrange regular zoom calls for pt with her children [phone]. Discussed with pt, who responded with doubt and questioned ex-husbands motive. Accusatory of all-has lost her contact lens package that she just ordered and make up bag-team reports she kept her contacts-they are not currently in her belongings that are with the nursing team. Reviewed medications-pt expressed anger for med changes-discussed that we had addressed this this week and she was indecisive and refusing of changes. Discussed caustic calls yesterday-states her children were screaming for their mother-all of my clothes are in my home, he has my home, children and belongings . States her mother called and told her she has no family and is to them so she should just kill herself. States told her the car was stolen, he has the plates. States she has been getting harassing calls, that things have been taken, that she cannot prepare for her court date of 02/26 due to this treatment intervention and will lose everything. Discussed setting up time to use her phone to prepare, meet with the children via zoom and take care of her concerns when she is feeling stronger. Medication Compliance: Yes Side effects from medications: No Attending Groups: No Review of Systems Acute medical concerns: No Medical Review of Systems: unchanged Mental Status Exam Mental Status Exam Patient Appearance: Appropriate Patient Orientation: Person, Place, Time and Situation Level of Consciousness: Alert Patient Behavior: Guarded, Talkative, Suspicious, Aggressive, Anxious, Fearful, Resistive to Care, Avoidant, Distractible and Good Eye Contact Mood Description: Suspicious, Constricted, Hostile, Anxious and Apprehensive Affect Description: Labile Patient Cognition Impaired: No Ability to Follow Directions: Fair Speech Pattern: Perseverating, Spontaneous Speech, Rambling, Excessive and Pressured Memory Description: Episodic Impaired Hallucinations: None Perceptual Disturbances: Depersonalization and Derealization Thought Process: Distracted and Rumination Thought Content: positive for Racing, positive for Circumstantial, positive for Perseveration and positive for Suicidal Ideation (denies SI, plan, intent) Depressive Symptoms: Increased Anxiety, Insomnia and Thoughts of /Suicide (denies SI, plan or intent) Abnormal Motor Activity Signs and Symptoms: Agitation and Restlessness Judgement: Poor Diagnostics Vital Signs (24Hr): Vital Signs - 24 hr 02/03/23 14:43 02/03/23 19:35 02/04/23 06:00 Temperature 96.9 F Pulse Rate 100 91 120 H Respiratory Rate 18 Blood Pressure 152/94 H 145/85 H 133/85 Oxygen Delivery Method Room Air BMI result Body Mass Index 27.5 Medications Medications Current Medications Acetaminophen (Acetaminophen 325 Mg Tablet) 650 mg PO Q6H PRN PRN Reason: Headache/Pain Mild Scale (1-3) Last Admin: 02/03/23 23:14 Dose: 650 mg Al Hydroxide/Mg Hydroxide (Magnesium Hydrox/Alum Hydrox 30 Ml Oral.Susp) 30 ml PO Q6H PRN PRN Reason: Heartburn/Nausea Last Admin: 02/02/23 20:19 Dose: 30 ml Benzocaine (Benzocaine 20 % Oral Gel 9 Gm Tube) 1 appl MUCOUS MEM Q4H PRN; Protocol PRN Reason: gum pain Last Admin: 02/02/23 10:24 Dose: 1 appl Diazepam (Diazepam 5 Mg Tablet) 10 mg PO TID [facility] Last Admin: 02/04/23 08:03 Dose: 10 mg Diphenhydramine HCl (Diphenhydramine Hcl 25 Mg Capsule) 50 mg PO Q4H PRN PRN Reason: Itching Last Admin: 02/03/23 23:14 Dose: 50 mg Gabapentin (Gabapentin 300 Mg Capsule) 300 mg PO BID [facility] Last Admin: 02/04/23 08:02 Dose: 300 mg Hydrocortisone (Hydrocortisone 1 % Cream 28.35 Gm Tube) 1 appl TOPICAL BID PRN; Protocol PRN Reason: rash on legs Last Admin: 02/03/23 18:38 Dose: 1 appl Magnesium Hydroxide (Milk Of Magnesia 30 Ml Oral.Susp) 30 ml PO DAILY PRN PRN Reason: Constipation Olanzapine (Olanzapine 5 Mg Tablet) 5 mg PO Q4H PRN PRN Reason: psychosis, bryce, agitation Olanzapine (Olanzapine Odt 10 Mg Tab.Rapdis) 10 mg TRANSLINGU BID [facility] Ondansetron HCl (Ondansetron Odt 4 Mg Tab.Rapdis) 4 mg TRANSLINGU Q8H PRN PRN Reason: Nausea Last Admin: 02/03/23 18:46 Dose: 4 mg Propranolol HCl (Propranolol Hcl 10 Mg Tablet) 15 mg PO TID CHARLIE; Protocol Last Admin: 02/04/23 08:02 Dose: 15 mg Trazodone HCl (Trazodone Hcl 25 Mg Halftab) 25 mg PO BEDTIME MRX1 PRN PRN Reason: trouble sleeping Last Admin: 02/03/23 21:52 Dose: 25 mg Allergies Allergies Allergy/AdvReac Type Severity Reaction Status Date / Time gluten AdvReac Gastrointestinal Verified 01/13/23 23:29 Upset lorazepam [From Ativan] AdvReac Headache Verified 10/22/20 19:11 wheat AdvReac Gastrointestinal Verified 01/13/23 23:29 Upset Assessment & Plan Assessment & Plan (1) Bipolar 1 disorder, manic, mild: Status: Acute Code(s): F31.11 - Bipolar disorder, current episode manic without psychotic features, mild Assessment and Plan: pt denies this 01/29 Plan Mrs. Peralta is a 47 year-old woman with hx of Bipolar Disorder who self presented to [facility] ED reporting feeling tired, with nausea, not sleeping, more anxious. Pt was recently discharged from [facility] after 3 week admission. Pt presents with tangential speech, hyperverbal but not pressured. No SI/HI. No psychosis or delusional content noted or reported. Pt reports not sleeping well. We discussed risks, benefits and alternative treatment options. Pt reports her medications have been helpful including combination or stimulant and xanax. Pt not open to other medication options that may include a mood stabilizer even if less sedation options than depakote. She does not appear at imminent risk of harm to self or others at this point. PLAN 1. Admit to M5, CV 15 minutes checks for safety 2. continue lower dose of adderall- at this point pt reports she uses for physical fatigue. She has not slept in days so in agreement to reduce dose in order aid sleep. but explained that may worsen hypomania or bryce- which pt does not think she has. 3. Obtain collateral information 4. Aftercare plan 01/15: Continue current treatment plan. 01/16: Continue treatment plan unchanged. 01/17/23: Change Adderall dosing to 20 mg a.m. 30 mg noon Change Benadryl to 50 mg [id number] prn Discontinue Trazodone 01/20/23 Family meeting 01/23/23. 01/21/23 Increase Propranolol to 15 mg tid 01/23/23 Continue current regime. 01/24/23 Continue current regime and plan Message left to schedule peer review per [facility] request. 01/25: Continue current plan. 01/27/23: Continue current plan. 01/28 continue tx. 01/29 change xanax to diazepam for weekend- seems like adderall dose is high for someone with anxiety like this- and thought disorganziation? 01/30 jaw better with diazepam, pt more confused and disorganized today after several room shifts due to issues of other patients- thrown off quite a bit by this and didn't get sleep - 01/31/23- Pt declines change of medication treatment plan. Demands discharge, refuses to sign three day notice Possible Section 7. 02/02/23 TDN expires 02/03- Will plan to file Section [address] assessment of further care and treatment. 02/04/23 Continue Olanzapine Change Valium to qid prn vs scheduled Adderall XR 20 mg a.m. Adderall IR 10 mg noon Adderall IR 20 mg x 1 dose at 1500 today Change Zofran to q 6 hours prn Patient educated on: medication risk/benefits Informed Consent: further education needed Reason for continued inpatient stay Substantial Risk for: rapid decompensation Time Spent With Patient Time: Total time managing care of this patient today ____ minutes.
[2023-02-04 14:50] VITALS: BP 121/74; PULSE 86
[2023-02-04] MEDS: Amphetamine Mixed Salts 20 MG TABLET PO (14:56)
[2023-02-04] MEDS: Acetaminophen 325 MG TABLET 650 MG PO (18:59)
[2023-02-04] MEDS: Benzocaine 20 % Oral Gel 9 GM TUBE 1 APPL MUCOUS MEM (19:01)
[2023-02-04] MEDS: Ondansetron ODT 4 MG TAB.RAPDIS TRANSLINGU (19:41)
[2023-02-04 19:55] VITALS: BP 138/82; PULSE 98; TEMP 36.2; O2SAT 99
[2023-02-04] MEDS: diphenhydrAMINE HCL 25 MG CAPSULE 50 MG PO (20:00)
[2023-02-04] MEDS: traZODone HCL 25 MG HALFTAB PO (20:00)
[2023-02-04] MEDS: OLANZapine ODT 10 MG TAB.RAPDIS TRANSLINGU (20:00)
[2023-02-05 08:30] VITALS: BP 135/79; PULSE 91; RESP 16; TEMP 36.1; O2SAT 99
[2023-02-05] MEDS: Propranolol HCL 10 MG TABLET 15 MG PO ×3 (08:33→20:34)
[2023-02-05] MEDS: OLANZapine ODT 10 MG TAB.RAPDIS TRANSLINGU ×2 (08:33→20:35)
[2023-02-05] MEDS: diazePAM 5 MG TABLET 10 MG PO ×3 (08:33→20:34)
[2023-02-05] MEDS: Acetaminophen 325 MG TABLET 650 MG PO ×2 (08:35→20:33)
[2023-02-05] MEDS: Dextroamphetamine/Amphetamine XR 10 MG CAP.ER.24H 20 MG PO ×2 (08:35→14:22)
[2023-02-05] MEDS: Gabapentin 300 MG CAPSULE PO ×2 (08:35→20:36)
[2023-02-05] MEDS: Amphetamine Mixed Salts 10 MG TABLET PO (11:17)
--- NOTE | 2023-02-05 11:17 | PC.NURSE ---
Addendum entered by Ness Mims RN 02/05/23 14:42: Pt also notes that she would like her primary psych provider Paige Saucedo made aware that her daughter's birthday is [birth year] Original Note: Pt states that her adderall dose was stable for 9 years and is used to treat both her ADHD and for off label use as prescribed. She states that now that her dose has been decreased she has no energy at all and that this state will not work for her when she is raising two young children.
--- NOTE | 2023-02-05 11:48 | HO.PSYCHPN ---
Subjective Subjective Date of Service: 02/05/23 Reason For Visit: Bipolar disorder w/ psychosis Interim History: Met with patient; discussed with team; discussed further TURNER lazaro Patient presents with pressured speech and is irritable, feeling marginalized by hospitalization and outside issues Patient says that bipolar disorder has been ruled out and patient does not like being on an antipsychotic. However, Discussing medications she agrees to try lithium but asks to have her Adderall increased back to former doses. 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 She agrees to stay on Zyprexa while lithium becomes therapeutic. Patient reports reports hx of pancreatits, making lithium preferable choice over Depakote Diagnostics Vital Signs (24Hr): Vital Signs - 24 hr 02/04/23 14:50 02/04/23 19:55 02/05/23 08:30 Temperature 97.1 F 96.9 F Pulse Rate 86 98 91 Respiratory Rate 16 Blood Pressure 121/74 138/82 135/79 Pulse Oximetry 99 99 Oxygen Delivery Method Room Air Room Air BMI result Body Mass Index 27.5 Medications Medications Current Medications Acetaminophen (Acetaminophen 325 Mg Tablet) 650 mg PO Q6H PRN PRN Reason: Headache/Pain Mild Scale (1-3) Last Admin: 02/05/23 08:35 Dose: 650 mg Al Hydroxide/Mg Hydroxide (Magnesium Hydrox/Alum Hydrox 30 Ml Oral.Susp) 30 ml PO Q6H PRN PRN Reason: Heartburn/Nausea Last Admin: 02/02/23 20:19 Dose: 30 ml Amphetamine/Dextroamphetamine (Dextroamphetamine/Amphetamine Xr 10 Mg Cap.Er.24h) 20 mg PO DAILY CHARLIE Last Admin: 02/05/23 08:35 Dose: 20 mg Amphetamine/Dextroamphetamine (Amphetamine Mixed Salts 10 Mg Tablet) 10 mg PO 1200 CHARLIE Last Admin: 02/05/23 11:17 Dose: 10 mg Benzocaine (Benzocaine 20 % Oral Gel 9 Gm Tube) 1 appl MUCOUS MEM Q4H PRN; Protocol PRN Reason: gum pain Last Admin: 02/04/23 19:01 Dose: 1 appl Diazepam (Diazepam 5 Mg Tablet) 10 mg PO QID PRN PRN Reason: anxiety, agitation Last Admin: 02/05/23 08:33 Dose: 10 mg Diphenhydramine HCl (Diphenhydramine Hcl 25 Mg Capsule) 50 mg PO Q4H PRN PRN Reason: Itching Last Admin: 02/04/23 20:00 Dose: 50 mg Gabapentin (Gabapentin 300 Mg Capsule) 300 mg PO BID CHARLIE Last Admin: 02/05/23 08:35 Dose: 300 mg Hydrocortisone (Hydrocortisone 1 % Cream 28.35 Gm Tube) 1 appl TOPICAL BID PRN; Protocol PRN Reason: rash on legs Last Admin: 02/03/23 18:38 Dose: 1 appl Magnesium Hydroxide (Milk Of Magnesia 30 Ml Oral.Susp) 30 ml PO DAILY PRN PRN Reason: Constipation Olanzapine (Olanzapine 5 Mg Tablet) 5 mg PO Q4H PRN PRN Reason: psychosis, bryce, agitation Olanzapine (Olanzapine Odt 10 Mg Tab.Rapdis) 10 mg TRANSLINGU BID CHARLIE Last Admin: 02/05/23 08:33 Dose: 10 mg Ondansetron HCl (Ondansetron Odt 4 Mg Tab.Rapdis) 4 mg TRANSLINGU Q6H PRN PRN Reason: Nausea Last Admin: 02/04/23 19:41 Dose: 4 mg Propranolol HCl (Propranolol Hcl 10 Mg Tablet) 15 mg PO TID CHARLIE; Protocol Last Admin: 02/05/23 08:33 Dose: 15 mg Trazodone HCl (Trazodone Hcl 25 Mg Halftab) 25 mg PO BEDTIME MRX1 PRN PRN Reason: trouble sleeping Last Admin: 02/04/23 20:00 Dose: 25 mg Allergies Allergies Allergy/AdvReac Type Severity Reaction Status Date / Time gluten AdvReac Gastrointestinal Verified 01/13/23 23:29 Upset lorazepam [From Ativan] AdvReac Headache Verified 10/22/20 19:11 wheat AdvReac Gastrointestinal Verified 01/13/23 23:29 Upset Assessment & Plan Assessment & Plan (1) Bipolar 1 disorder, manic, mild: Status: Acute Code(s): F31.11 - Bipolar disorder, current episode manic without psychotic features, mild Assessment and Plan: pt denies this 01/29 Plan Mrs. Peralta is a 47 year-old woman with hx of Bipolar Disorder who self presented to [facility] ED reporting feeling tired, with nausea, not sleeping, more anxious. Pt was recently discharged from [facility] after 3 week admission. Pt presents with tangential speech, hyperverbal but not pressured. No SI/HI. No psychosis or delusional content noted or reported. Pt reports not sleeping well. We discussed risks, benefits and alternative treatment options. Pt reports her medications have been helpful including combination or stimulant and xanax. Pt not open to other medication options that may include a mood stabilizer even if less sedation options than depakote. She does not appear at imminent risk of harm to self or others at this point. PLAN 1. Admit to M5, CV 15 minutes checks for safety 2. continue lower dose of adderall- at this point pt reports she uses for physical fatigue. She has not slept in days so in agreement to reduce dose in order aid sleep. but explained that may worsen hypomania or bryce- which pt does not think she has. 3. Obtain collateral information 4. Aftercare plan 01/15: Continue current treatment plan. 01/16: Continue treatment plan unchanged. 01/17/23: Change Adderall dosing to 20 mg a.m. 30 mg noon Change Benadryl to 50 mg [id number] prn Discontinue Trazodone 01/20/23 Family meeting 01/23/23. 01/21/23 Increase Propranolol to 15 mg tid 01/23/23 Continue current regime. 01/24/23 Continue current regime and plan Message left to schedule peer review per [facility] request. 01/25: Continue current plan. 01/27/23: Continue current plan. 01/28 continue tx. 01/29 change xanax to diazepam for weekend- seems like adderall dose is high for someone with anxiety like this- and thought disorganziation? 01/30 jaw better with diazepam, pt more confused and disorganized today after several room shifts due to issues of other patients- thrown off quite a bit by this and didn't get sleep - 01/31/23- Pt declines change of medication treatment plan. Demands discharge, refuses to sign three day notice Possible Section 7. 02/02/23 TDN expires 02/03- Will plan to file Section [address] assessment of further care and treatment. 02/04/23 Continue Olanzapine Change Valium to qid prn vs scheduled Adderall XR 20 mg a.m. Adderall IR 10 mg noon Adderall IR 20 mg x 1 dose at 1500 today Change Zofran to q 6 hours prn 02/05/23 Patient continues to present with hypomania and some limited insight; however she is amenable to starting lithium. Patient reports reports hx of pancreatits, making lithium preferable choice over Depakote Agrees to starting lithium if she can have Adderall increased back to 4 more doses. Behavior Interventionist feels this is a fair compromise as patient seems likely to benefit from a mood stabilizer and has never been on lithium in the past and Adderall is only being increased 10 more mg increase per dose. Discussed case with Paige Lazaro who agrees with plan; film writer reviewed kidney function from sending facility and within normal limits Increase Adderall XR to 20mg qpm Start [place] [place] [facility] 600mg qhs Continue zyprexa for now with hopeful plan to taper and dc if lithium proves helpful Patient educated on: diagnosis and medication risk/benefits Informed Consent: understands, does not understand and further education needed Reason for continued inpatient stay Substantial Risk for: rapid decompensation and med/psych decompensation Time Spent With Patient Time: Total time managing care of this patient today ____ minutes.
[2023-02-05 14:34] VITALS: BP 165/75; PULSE 101
[2023-02-05 16:44] VITALS: BP 142/87; PULSE 93; RESP 22; TEMP 36.6; O2SAT 99
[2023-02-05] MEDS: diphenhydrAMINE HCL 25 MG CAPSULE 50 MG PO (20:34)
[2023-02-05] MEDS: Lithium Carbonate ER 300 MG TABLET.ER 600 MG PO (20:36)
[2023-02-06 08:20] VITALS: BP 143/90; PULSE 104; RESP 16; TEMP 36.1; O2SAT 100
[2023-02-06] MEDS: Dextroamphetamine/Amphetamine XR 10 MG CAP.ER.24H 30 MG PO (08:27)
[2023-02-06] MEDS: Propranolol HCL 10 MG TABLET 15 MG PO (08:27)
[2023-02-06] MEDS: Gabapentin 300 MG CAPSULE PO ×2 (08:28→20:53)
[2023-02-06] MEDS: diazePAM 5 MG TABLET 10 MG PO ×4 (08:33→20:54)
[2023-02-06] MEDS: Acetaminophen 325 MG TABLET 650 MG PO ×3 (08:33→20:53)
[2023-02-06] MEDS: OLANZapine ODT 10 MG TAB.RAPDIS TRANSLINGU (08:34)
--- NOTE | 2023-02-06 10:33 | HO.PSYCHPN ---
Subjective Subjective Date of Service: 02/06/23 Reason For Visit: Bipolar disorder w/ psychosis Interim History: Met with patient; discussed with team pt thankful for increase in Adderall and says it is quite helpful, improving her ability to focus and think clearly; denies any side-effects from starting [place]. Pt perseverative on the significant challenges she's facing with her divorce, custody battles and estate. Pt very focused on telling writer producer the details of these struggles and difficult to interupt or redirect. Pt wanted to know why writer producer is concerned for bipolar disorder and why writer producer thinks pt is manic. Sand Buffer concedes that based off of only 2 days of limited interactions, writer producer is not able to fully conclude that patient is manic and agrees that it's possible her mood dysregulation/hyeractivity is due to psychosocial stressors. However writer producer explains that pt is overly verbose and has pressured speech, perseverative thinking, is difficult to interrupt, is defensive and with some suspicious and paranoid thinking, leaning toward concern for bryce and bipolar. Mental Status Exam Mental Status Exam Patient Appearance: Appropriate Patient Orientation: Person, Place, Time and Situation Level of Consciousness: Awake and Alert Patient Behavior: Guarded, Talkative, Suspicious, Anxious and Good Eye Contact Mood Description: Suspicious, Constricted, Anxious and Apprehensive Affect Description: Constricted Patient Cognition Impaired: No Ability to Follow Directions: Fair Speech Pattern: Perseverating, Spontaneous Speech, Rambling, Excessive and Pressured Memory Description: Episodic Impaired Hallucinations: None Delusions: Not Present (none of which writer producer is aware) Thought Process: Rumination and Goal Oriented Thought Content: positive for Circumstantial, positive for Perseveration and positive for Suicidal Ideation (denies SI, plan, intent) Depressive Symptoms: Increased Anxiety, Insomnia and Thoughts of /Suicide (denies SI, plan or intent) Abnormal Motor Activity Signs and Symptoms: Restlessness Judgement and Insight: seems impaired Diagnostics Vital Signs (24Hr): Vital Signs - 24 hr 02/05/23 14:34 02/05/23 16:44 02/06/23 08:20 Temperature 98 F 96.9 F Pulse Rate 101 H 93 104 H Respiratory Rate 22 H 16 Blood Pressure 165/75 H 142/87 H 143/90 H Pulse Oximetry 99 100 Oxygen Delivery Method Room Air Room Air BMI result Body Mass Index 27.5 Medications Medications Current Medications Acetaminophen (Acetaminophen 325 Mg Tablet) 650 mg PO Q6H PRN PRN Reason: Headache/Pain Mild Scale (1-3) Last Admin: 02/06/23 08:33 Dose: 650 mg Al Hydroxide/Mg Hydroxide (Magnesium Hydrox/Alum Hydrox 30 Ml Oral.Susp) 30 ml PO Q6H PRN PRN Reason: Heartburn/Nausea Last Admin: 02/02/23 20:19 Dose: 30 ml Amphetamine/Dextroamphetamine (Amphetamine Mixed Salts 10 Mg Tablet) 20 mg PO 1200 CHARLIE Amphetamine/Dextroamphetamine (Dextroamphetamine/Amphetamine Xr 10 Mg Cap.Er.24h) 30 mg PO DAILY [facility] Last Admin: 02/06/23 08:27 Dose: 30 mg Benzocaine (Benzocaine 20 % Oral Gel 9 Gm Tube) 1 appl MUCOUS MEM Q4H PRN; Protocol PRN Reason: gum pain Last Admin: 02/04/23 19:01 Dose: 1 appl Diazepam (Diazepam 5 Mg Tablet) 10 mg PO QID PRN PRN Reason: anxiety, agitation Last Admin: 02/06/23 08:33 Dose: 10 mg Diphenhydramine HCl (Diphenhydramine Hcl 25 Mg Capsule) 50 mg PO Q4H PRN PRN Reason: Itching Last Admin: 02/05/23 20:34 Dose: 50 mg Gabapentin (Gabapentin 300 Mg Capsule) 300 mg PO BID [facility] Last Admin: 02/06/23 08:28 Dose: 300 mg Hydrocortisone (Hydrocortisone 1 % Cream 28.35 Gm Tube) 1 appl TOPICAL BID PRN; Protocol PRN Reason: rash on legs Last Admin: 02/03/23 18:38 Dose: 1 appl [place] Carbonate ([place] Carbonate Er 300 Mg Tablet.Er) 600 mg PO BEDTIME [facility] Last Admin: 02/05/23 20:36 Dose: 600 mg Magnesium Hydroxide (Milk Of Magnesia 30 Ml Oral.Susp) 30 ml PO DAILY PRN PRN Reason: Constipation Olanzapine (Olanzapine 5 Mg Tablet) 5 mg PO Q4H PRN PRN Reason: psychosis, bryce, agitation Olanzapine (Olanzapine Odt 10 Mg Tab.Rapdis) 10 mg TRANSLINGU BID [facility] Last Admin: 02/06/23 08:34 Dose: 10 mg Ondansetron HCl (Ondansetron Odt 4 Mg Tab.Rapdis) 4 mg TRANSLINGU Q6H PRN PRN Reason: Nausea Last Admin: 02/04/23 19:41 Dose: 4 mg Propranolol HCl (Propranolol Hcl 10 Mg Tablet) 15 mg PO TID CHARLIE; Protocol Last Admin: 02/06/23 08:27 Dose: 15 mg Trazodone HCl (Trazodone Hcl 25 Mg Halftab) 25 mg PO BEDTIME MRX1 PRN PRN Reason: trouble sleeping Last Admin: 02/04/23 20:00 Dose: 25 mg Allergies Allergies Allergy/AdvReac Type Severity Reaction Status Date / Time gluten AdvReac Gastrointestinal Verified 01/13/23 23:29 Upset lorazepam [From Ativan] AdvReac Headache Verified 10/22/20 19:11 wheat AdvReac Gastrointestinal Verified 01/13/23 23:29 Upset Assessment & Plan Assessment & Plan (1) Bipolar 1 disorder, manic, mild: Status: Acute Code(s): F31.11 - Bipolar disorder, current episode manic without psychotic features, mild Assessment and Plan: pt denies this 01/29 Plan Mrs. Peralta is a 47 year-old woman with hx of Bipolar Disorder who self presented to [facility] ED reporting feeling tired, with nausea, not sleeping, more anxious. Pt was recently discharged from [facility] after 3 week admission. Pt presents with tangential speech, hyperverbal but not pressured. No SI/HI. No psychosis or delusional content noted or reported. Pt reports not sleeping well. We discussed risks, benefits and alternative treatment options. Pt reports her medications have been helpful including combination or stimulant and xanax. Pt not open to other medication options that may include a mood stabilizer even if less sedation options than depakote. She does not appear at imminent risk of harm to self or others at this point. PLAN 1. Admit to M5, CV 15 minutes checks for safety 2. continue lower dose of adderall- at this point pt reports she uses for physical fatigue. She has not slept in days so in agreement to reduce dose in order aid sleep. but explained that may worsen hypomania or bryce- which pt does not think she has. 3. Obtain collateral information 4. Aftercare plan 01/15: Continue current treatment plan. 01/16: Continue treatment plan unchanged. 01/17/23: Change Adderall dosing to 20 mg a.m. 30 mg noon Change Benadryl to 50 mg [id number] prn Discontinue Trazodone 01/20/23 Family meeting 01/23/23. 01/21/23 Increase Propranolol to 15 mg tid 01/23/23 Continue current regime. 01/24/23 Continue current regime and plan Message left to schedule peer review per [facility] [employer] request. 01/25: Continue current plan. 01/27/23: Continue current plan. 01/28 continue tx. 01/29 change xanax to diazepam for weekend- seems like adderall dose is high for someone with anxiety like this- and thought disorganziation? 01/30 jaw better with diazepam, pt more confused and disorganized today after several room shifts due to issues of other patients- thrown off quite a bit by this and didn't get sleep - 01/31/23- Pt declines change of medication treatment plan. Demands discharge, refuses to sign three day notice Possible Section 7. 02/02/23 TDN expires 02/03- Will plan to file Section [address] assessment of further care and treatment. 02/04/23 Continue Olanzapine Change Valium to qid prn vs scheduled Adderall XR 20 mg a.m. Adderall IR 10 mg noon Adderall IR 20 mg x 1 dose at 1500 today Change Zofran to q 6 hours prn 02/05/23 Patient continues to present with hypomania and some limited insight; however she is amenable to starting lithium. Patient reports reports hx of pancreatits, making lithium preferable choice over Depakote Agrees to starting lithium if she can have Adderall increased back to 4 more doses. Sand Buffer feels this is a fair compromise as patient seems likely to benefit from a mood stabilizer and has never been on lithium in the past and Adderall is only being increased 10 more mg increase per dose. Discussed case with Paige Manzanares who agrees with plan; writer producer reviewed kidney function from sending facility and within normal limits Increase Adderall XR to 20mg qpm Start [place] ER 600mg qhs Continue zyprexa for now with hopeful plan to taper and dc if lithium proves helpful 02/06 pt presents as hypomanic, though has been able to reasonably discuss medications and diagnosis. continue tx plan Patient educated on: diagnosis and medication risk/benefits Informed Consent: understands Reason for continued inpatient stay Substantial Risk for: med/psych decompensation Time Spent With Patient Time: Total time managing care of this patient today ____ minutes.
[2023-02-06] MEDS: Amphetamine Mixed Salts 10 MG TABLET 20 MG PO (11:14)
[2023-02-06 14:22] VITALS: BP 148/88; PULSE 90
[2023-02-06] MEDS: Propranolol HCL 20 MG TABLET PO ×2 (14:28→20:54)
[2023-02-06 20:50] VITALS: BP 139/87; PULSE 78; TEMP 36; O2SAT 98
[2023-02-06] MEDS: OLANZapine 10 MG TABLET PO (20:53)
[2023-02-06] MEDS: diphenhydrAMINE HCL 25 MG CAPSULE 50 MG PO (20:54)
[2023-02-06] MEDS: Lithium Carbonate ER 300 MG TABLET.ER 600 MG PO (20:54)
[2023-02-07] MEDS: Acetaminophen 325 MG TABLET 650 MG PO (07:58)
[2023-02-07] MEDS: diazePAM 5 MG TABLET 10 MG PO ×4 (07:58→20:38)
[2023-02-07] MEDS: Propranolol HCL 20 MG TABLET PO ×3 (07:58→20:38)
[2023-02-07] MEDS: Gabapentin 300 MG CAPSULE PO ×2 (07:58→20:37)
[2023-02-07] MEDS: OLANZapine 10 MG TABLET PO ×2 (07:59→20:38)
[2023-02-07] MEDS: Dextroamphetamine/Amphetamine XR 10 MG CAP.ER.24H 30 MG PO (08:00)
[2023-02-07 08:02] VITALS: BP 112/83; PULSE 105; RESP 18; O2SAT 99
[2023-02-07] MEDS: Amphetamine Mixed Salts 10 MG TABLET 20 MG PO (11:04)
--- NOTE | 2023-02-07 13:44 | HO.PSYCHPN ---
Subjective Subjective Date of Service: 02/07/23 Reason For Visit: Bipolar disorder w/ psychosis Subjective Notes: Section 7 Healthcare Proxy: No Guardianship: No Medical Problems Affecting Mental Status: No Interim History: Pt/team report a calmer, productive weekend. Agreed to a [place] trial with Dr. Hayes. Requested to restart Adderall and was able to do this with Dr. Hayes as well. Today, working on organizing what she needs to do to obtain representation for her divorce, discussed her aunt helping her. Working with team to arrange zoom visits with her children and replace contact lens which were lost on the unit recently. Pt's focus is on her health and keeping her family intact. She is open to assistance. Discussed [place] level mid week and when therapeutic, tapering back on Olanzapine, which she agrees to. Medication Compliance: Yes Side effects from medications: No Attending Groups: No Review of Systems Acute medical concerns: No Medical Review of Systems: unchanged Mental Status Exam Mental Status Exam Patient Appearance: Fatigued Patient Orientation: Person, Place, Time and Situation Level of Consciousness: Alert Patient Behavior: Appropriate, Talkative, Cooperative, Anxious, Fearful, Fatigued and Good Eye Contact Mood Description: Withdrawn, Depressed, Fearful, Anxious, Flat, Sad, Nervous and Apprehensive Affect Description: Flat Patient Cognition Impaired: No Ability to Follow Directions: Good Speech Pattern: Perseverating, Spontaneous Speech, Soft-Spoken and Pressured Memory Description: Intact Hallucinations: None Delusions: Not Present Perceptual Disturbances: Depersonalization and Derealization Thought Process: Rumination Thought Content: positive for Circumstantial, positive for Goal Oriented, positive for Perseveration, positive for Suicidal Ideation (denies) and positive for Homicidal Ideation (denies) Depressive Symptoms: Increased Anxiety, Increased Fatigue and Thoughts of /Suicide (denies) Judgement: Fair Diagnostics Vital Signs (24Hr): Vital Signs - 24 hr 02/06/23 14:22 02/06/23 20:50 02/07/23 08:02 Temperature 96.8 F Pulse Rate 90 78 105 H Respiratory Rate 18 Blood Pressure 148/88 H 139/87 112/83 Pulse Oximetry 98 99 Oxygen Delivery Method Room Air Room Air BMI result Body Mass Index 27.5 Medications Medications Current Medications Acetaminophen (Acetaminophen 325 Mg Tablet) 650 mg PO Q6H PRN PRN Reason: Headache/Pain Mild Scale (1-3) Last Admin: 02/07/23 07:58 Dose: 650 mg Al Hydroxide/Mg Hydroxide (Magnesium Hydrox/Alum Hydrox 30 Ml Oral.Susp) 30 ml PO Q6H PRN PRN Reason: Heartburn/Nausea Last Admin: 02/02/23 20:19 Dose: 30 ml Amphetamine/Dextroamphetamine (Amphetamine Mixed Salts 10 Mg Tablet) 20 mg PO 1200 CHARLIE Last Admin: 02/07/23 11:04 Dose: 20 mg Amphetamine/Dextroamphetamine (Dextroamphetamine/Amphetamine Xr 10 Mg Cap.Er.24h) 30 mg PO DAILY [facility] Last Admin: 02/07/23 08:00 Dose: 30 mg Benzocaine (Benzocaine 20 % Oral Gel 9 Gm Tube) 1 appl MUCOUS MEM Q4H PRN; Protocol PRN Reason: gum pain Last Admin: 02/04/23 19:01 Dose: 1 appl Diazepam (Diazepam 5 Mg Tablet) 10 mg PO QID PRN PRN Reason: anxiety, agitation Last Admin: 02/07/23 07:58 Dose: 10 mg Diphenhydramine HCl (Diphenhydramine Hcl 25 Mg Capsule) 50 mg PO Q4H PRN PRN Reason: Itching Last Admin: 02/06/23 20:54 Dose: 50 mg Gabapentin (Gabapentin 300 Mg Capsule) 300 mg PO BID [facility] Last Admin: 02/07/23 07:58 Dose: 300 mg Hydrocortisone (Hydrocortisone 1 % Cream 28.35 Gm Tube) 1 appl TOPICAL BID PRN; Protocol PRN Reason: rash on legs Last Admin: 02/03/23 18:38 Dose: [address] [place] Carbonate ([place] Carbonate Er 300 Mg Tablet.Er) 600 mg PO BEDTIME [facility] Last Admin: 02/06/23 20:54 Dose: 600 mg Magnesium Hydroxide (Milk Of Magnesia 30 Ml Oral.Susp) 30 ml PO DAILY PRN PRN Reason: Constipation Olanzapine (Olanzapine 5 Mg Tablet) 5 mg PO Q4H PRN PRN Reason: psychosis, bryce, agitation Olanzapine (Olanzapine 10 Mg Tablet) 10 mg PO BID [facility] Last Admin: 02/07/23 07:59 Dose: 10 mg Ondansetron HCl (Ondansetron Odt 4 Mg Tab.Rapdis) 4 mg TRANSLINGU Q6H PRN PRN Reason: Nausea Last Admin: 02/04/23 19:41 Dose: 4 mg Propranolol HCl (Propranolol Hcl 20 Mg Tablet) 20 mg PO TID CHARLIE; Protocol Last Admin: 02/07/23 07:58 Dose: 20 mg Trazodone HCl (Trazodone Hcl 25 Mg Halftab) 25 mg PO BEDTIME MRX1 PRN PRN Reason: trouble sleeping Last Admin: 02/04/23 20:00 Dose: 25 mg Allergies Allergies Allergy/AdvReac Type Severity Reaction Status Date / Time gluten AdvReac Gastrointestinal Verified 01/13/23 23:29 Upset lorazepam [From Ativan] AdvReac Headache Verified 10/22/20 19:11 wheat AdvReac Gastrointestinal Verified 01/13/23 23:29 Upset Assessment & Plan Assessment & Plan (1) Bipolar 1 disorder, manic, mild: Status: Acute Code(s): F31.11 - Bipolar disorder, current episode manic without psychotic features, mild Assessment and Plan: pt denies this 01/29 Plan Mrs. Peralta is a 47 year-old woman with hx of Bipolar Disorder who self presented to [facility] ED reporting feeling tired, with nausea, not sleeping, more anxious. Pt was recently discharged from [facility] after 3 week admission. Pt presents with tangential speech, hyperverbal but not pressured. No SI/HI. No psychosis or delusional content noted or reported. Pt reports not sleeping well. We discussed risks, benefits and alternative treatment options. Pt reports her medications have been helpful including combination or stimulant and xanax. Pt not open to other medication options that may include a mood stabilizer even if less sedation options than depakote. She does not appear at imminent risk of harm to self or others at this point. PLAN 1. Admit to M5, CV 15 minutes checks for safety 2. continue lower dose of adderall- at this point pt reports she uses for physical fatigue. She has not slept in days so in agreement to reduce dose in order aid sleep. but explained that may worsen hypomania or bryce- which pt does not think she has. 3. Obtain collateral information 4. Aftercare plan 01/15: Continue current treatment plan. 01/16: Continue treatment plan unchanged. 01/17/23: Change Adderall dosing to 20 mg a.m. 30 mg noon Change Benadryl to 50 mg [id number] prn Discontinue Trazodone 01/20/23 Family meeting 01/23/23. 01/21/23 Increase Propranolol to 15 mg tid 01/23/23 Continue current regime. 01/24/23 Continue current regime and plan Message left to schedule peer review per [facility] request. 01/25: Continue current plan. 01/27/23: Continue current plan. 01/28 continue tx. 01/29 change xanax to diazepam for weekend- seems like adderall dose is high for someone with anxiety like this- and thought disorganziation? 01/30 jaw better with diazepam, pt more confused and disorganized today after several room shifts due to issues of other patients- thrown off quite a bit by this and didn't get sleep - 01/31/23- Pt declines change of medication treatment plan. Demands discharge, refuses to sign three day notice Possible Section 7. 02/02/23 TDN expires 02/03- Will plan to file Section [address] assessment of further care and treatment. 02/04/23 Continue Olanzapine Change Valium to qid prn vs scheduled Adderall XR 20 mg a.m. Adderall IR 10 mg noon Adderall IR 20 mg x 1 dose at 1500 today Change Zofran to q 6 hours prn 02/05/23 Patient continues to present with hypomania and some limited insight; however she is amenable to starting lithium. Patient reports reports hx of pancreatits, making lithium preferable choice over Depakote Agrees to starting lithium if she can have Adderall increased back to 4 more doses. Sports Umpire feels this is a fair compromise as patient seems likely to benefit from a mood stabilizer and has never been on lithium in the past and Adderall is only being increased 10 more mg increase per dose. Discussed case with Paige Manzanares who agrees with plan; contract writer reviewed kidney function from sending facility and within normal limits Increase Adderall XR to 20mg qpm Start [place] ER 600mg qhs Continue zyprexa for now with hopeful plan to taper and dc if lithium proves helpful 02/06 pt presents as hypomanic, though has been able to reasonably discuss medications and diagnosis. continue tx plan 02/07/23: Improved, organizing her tasks. [place] level 02/09. Patient educated on: therapeutic strategies Informed Consent: understands and further education needed Reason for continued inpatient stay Substantial Risk for: rapid decompensation Time Spent With Patient Time: Total time managing care of this patient today ____ minutes.
[2023-02-07 20:30] VITALS: BP 142/76; PULSE 98; TEMP 36.3; O2SAT 98
[2023-02-07] MEDS: diphenhydrAMINE HCL 25 MG CAPSULE 50 MG PO (20:37)
[2023-02-07] MEDS: traZODone HCL 25 MG HALFTAB PO (20:38)
[2023-02-07] MEDS: Lithium Carbonate ER 300 MG TABLET.ER 600 MG PO (20:38)
[2023-02-08 06:00] VITALS: BP 118/79; PULSE 96; RESP 16; TEMP 36.6; O2SAT 98
[2023-02-08] MEDS: Gabapentin 300 MG CAPSULE PO ×2 (08:08→20:10)
[2023-02-08] MEDS: diazePAM 5 MG TABLET 10 MG PO ×4 (08:08→22:30)
[2023-02-08] MEDS: Dextroamphetamine/Amphetamine XR 10 MG CAP.ER.24H 30 MG PO (08:08)
[2023-02-08] MEDS: OLANZapine 10 MG TABLET PO ×2 (08:08→20:10)
[2023-02-08] MEDS: Acetaminophen 325 MG TABLET 650 MG PO ×2 (08:08→20:10)
[2023-02-08] MEDS: Propranolol HCL 20 MG TABLET PO ×3 (08:08→20:09)
[2023-02-08] MEDS: Amphetamine Mixed Salts 10 MG TABLET 20 MG PO (11:47)
--- NOTE | 2023-02-08 12:24 | HO.PSYCHPN ---
Subjective Subjective Date of Service: 02/08/23 Reason For Visit: Bipolar disorder w/ psychosis Subjective Notes: Section 7 Healthcare Proxy: No Guardianship: No Medical Problems Affecting Mental Status: No Interim History: Call from pt's aunt, Mary Bradford [phone], to check in on pt's progress and offer team some input which is much appreciated. Review of med regime, [place], Olanzapine. sees pt as improving. She expresses concern that pt will be released too soon before some sustained stability can be achieved. 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 Pt's mom, 's sister had not talked with her about pt for the past two years. has told pt's mom she will let her know when she talks with pt, but reports that parents are not a steady support system. Family knew there were issues, however they never expected it to be this serious. Pt/Siblings/Parents have much conflict. Pt's father believes as patriarch his opinion is final and family will adhere to his decision making. describes intense caring with conflict that the family has. Essentially, currently, pt is homeless without assets. She asks for assistance for pt in finding an prosecuting attorney to guide pt through her processes. Discussed pt's history. describes her as a lively young person. Lability, anger seen in high school with issues that she and immediate family did not manage well. Examples given of life giving losses and curves. Whereas loss to most is to be resolved and move forward, when loss or conflict is present in this family pt was taught that loss is specifically done to harm them and victim roles are assumed which did not lead to healthy resolution of issues and progress and led to more anger and feeling taken advantage of, leading to pt having a difficult time in moving forward. describes the marriage as being difficult for both. Divorce had been discussed several times, however both did enjoy the event of the wedding itself. Children were planned, conceived via IVF, possibly adding hormonal stress to pt's mood symptoms. Issues with addiction are in pt's history as well. Family is aware of past issues where authorities were involved with medication complications, however they are not aware of specifics. reports @2.5 years ago pt/family had a frightening /life threatening experience with pt which lasted about 3 days. received a call from pt's mom telling her pt had -she had taken off in the car with the children and mom said she told her she was never coming back. Mom believed pt was and asked if family could ping her cell to find the body. and her family suggested police be called, however, mom did not want to do this. called pt directly, pt answered, told she just needed a break and was going to [place] to see their cousin who worked with the [employer]. Police were called to help. Pt was found in [place], arrested, fought with police and was admitted to a [facility] for ~3 days for eval. Dental Laboratory Technician were involved. This incident precipitated pt's mother not talking with and pt not talking with until last week when pt was in crisis and reached out for support. reports pt has NEVER asked for money or services from , just to be heard. Pt's perspective has never been completely on point and family reports pt to be highly skilled in lying. and her family would like to remain a support/someone to listen to pt and they will take team suggestions for how they can be helpful in pt's best interest. Medication Compliance: Yes Side effects from medications: No Attending Groups: No Review of Systems Acute medical concerns: No Medical Review of Systems: unchanged Mental Status Exam Mental Status Exam Patient Appearance: Fatigued Patient Orientation: Person, Place, Time and Situation Level of Consciousness: Alert Patient Behavior: Appropriate, Talkative, Cooperative, Anxious, Fearful, Fatigued and Good Eye Contact Mood Description: Withdrawn, Depressed, Fearful, Anxious, Flat, Sad, Nervous and Apprehensive Affect Description: Flat Patient Cognition Impaired: No Ability to Follow Directions: Good Speech Pattern: Perseverating, Spontaneous Speech, Soft-Spoken and Pressured Memory Description: Intact Hallucinations: None Delusions: Not Present Perceptual Disturbances: Depersonalization and Derealization Thought Process: Rumination Thought Content: positive for Circumstantial, positive for Goal Oriented, positive for Perseveration, positive for Suicidal Ideation (denies) and positive for Homicidal Ideation (denies) Depressive Symptoms: Increased Anxiety, Increased Fatigue and Thoughts of /Suicide (denies) Judgement: Fair Diagnostics Vital Signs (24Hr): Vital Signs - 24 hr 07/17/23 20:30 02/08/23 06:00 Temperature 97.4 F 97.8 F Pulse Rate 98 96 Respiratory Rate 16 Blood Pressure 142/76 H 118/79 Pulse Oximetry 98 98 Oxygen Delivery Method Room Air Room Air BMI result Body Mass Index 27.5 Medications Medications Current Medications Acetaminophen (Acetaminophen 325 Mg Tablet) 650 mg PO Q6H PRN PRN Reason: Headache/Pain Mild Scale (1-3) Last Admin: 02/08/23 08:08 Dose: 650 mg Al Hydroxide/Mg Hydroxide (Magnesium Hydrox/Alum Hydrox 30 Ml Oral.Susp) 30 ml PO Q6H PRN PRN Reason: Heartburn/Nausea Last Admin: 02/02/23 20:19 Dose: 30 ml Amphetamine/Dextroamphetamine (Amphetamine Mixed Salts 10 Mg Tablet) 20 mg PO 1200 [facility] Last Admin: 02/08/23 11:47 Dose: 20 mg Amphetamine/Dextroamphetamine (Dextroamphetamine/Amphetamine Xr 10 Mg Cap.Er.24h) 30 mg PO DAILY [facility] Last Admin: 02/08/23 08:08 Dose: 30 mg Benzocaine (Benzocaine 20 % Oral Gel 9 Gm Tube) 1 appl MUCOUS MEM Q4H PRN; Protocol PRN Reason: gum pain Last Admin: 02/04/23 19:01 Dose: 1 appl Diazepam (Diazepam 5 Mg Tablet) 10 mg PO QID PRN PRN Reason: anxiety, agitation Last Admin: 02/08/23 08:08 Dose: 10 mg Diphenhydramine HCl (Diphenhydramine Hcl 25 Mg Capsule) 50 mg PO Q4H PRN PRN Reason: Itching Last Admin: 02/07/23 20:37 Dose: 50 mg Gabapentin (Gabapentin 300 Mg Capsule) 300 mg PO BID [facility] Last Admin: 02/08/23 08:08 Dose: 300 mg Hydrocortisone (Hydrocortisone 1 % Cream 28.35 Gm Tube) 1 appl TOPICAL BID PRN; Protocol PRN Reason: rash on legs Last Admin: 02/03/23 18:38 Dose: 1 appl [place] Carbonate ([place] Carbonate Er 300 Mg Tablet.Er) 600 mg PO BEDTIME [facility] Last Admin: 02/07/23 20:38 Dose: 600 mg Magnesium Hydroxide (Milk Of Magnesia 30 Ml Oral.Susp) 30 ml PO DAILY PRN PRN Reason: Constipation Olanzapine (Olanzapine 5 Mg Tablet) 5 mg PO Q4H PRN PRN Reason: psychosis, bryce, agitation Olanzapine (Olanzapine 10 Mg Tablet) 10 mg PO BID CHARLIE Last Admin: 02/08/23 08:08 Dose: 10 mg Ondansetron HCl (Ondansetron Odt 4 Mg Tab.Rapdis) 4 mg TRANSLINGU Q6H PRN PRN Reason: Nausea Last Admin: 02/04/23 19:41 Dose: 4 mg Propranolol HCl (Propranolol Hcl 20 Mg Tablet) 20 mg PO TID CHARLIE; Protocol Last Admin: 02/08/23 08:08 Dose: 20 mg Trazodone HCl (Trazodone Hcl 25 Mg Halftab) 25 mg PO BEDTIME MRX1 PRN PRN Reason: trouble sleeping Last Admin: 02/07/23 20:38 Dose: 25 mg Allergies Allergies Allergy/AdvReac Type Severity Reaction Status Date / Time gluten AdvReac Gastrointestinal Verified 01/13/23 23:29 Upset lorazepam [From Ativan] AdvReac Headache Verified 10/22/20 19:11 wheat AdvReac Gastrointestinal Verified 01/13/23 23:29 Upset Assessment & Plan Assessment & Plan (1) Bipolar 1 disorder, manic, mild: Status: Acute Code(s): F31.11 - Bipolar disorder, current episode manic without psychotic features, mild Assessment and Plan: pt denies this 01/29 Plan Mrs. Peralta is a 47 year-old woman with hx of Bipolar Disorder who self presented to [facility] ED reporting feeling tired, with nausea, not sleeping, more anxious. Pt was recently discharged from [facility] after 3 week admission. Pt presents with tangential speech, hyperverbal but not pressured. No SI/HI. No psychosis or delusional content noted or reported. Pt reports not sleeping well. We discussed risks, benefits and alternative treatment options. Pt reports her medications have been helpful including combination or stimulant and xanax. Pt not open to other medication options that may include a mood stabilizer even if less sedation options than depakote. She does not appear at imminent risk of harm to self or others at this point. PLAN 1. Admit to M5, CV 15 minutes checks for safety 2. continue lower dose of adderall- at this point pt reports she uses for physical fatigue. She has not slept in days so in agreement to reduce dose in order aid sleep. but explained that may worsen hypomania or bryce- which pt does not think she has. 3. Obtain collateral information 4. Aftercare plan 01/15: Continue current treatment plan. 01/16: Continue treatment plan unchanged. 01/17/23: Change Adderall dosing to 20 mg a.m. 30 mg noon Change Benadryl to 50 mg [id number] prn Discontinue Trazodone 01/20/23 Family meeting 01/23/23. 01/21/23 Increase Propranolol to 15 mg tid 01/23/23 Continue current regime. 01/24/23 Continue current regime and plan Message left to schedule peer review per [facility] request. 01/25: Continue current plan. 01/27/23: Continue current plan. 01/28 continue tx. 01/29 change xanax to diazepam for weekend- seems like adderall dose is high for someone with anxiety like this- and thought disorganziation? 01/30 jaw better with diazepam, pt more confused and disorganized today after several room shifts due to issues of other patients- thrown off quite a bit by this and didn't get sleep - 01/31/23- Pt declines change of medication treatment plan. Demands discharge, refuses to sign three day notice Possible Section 7. 02/02/23 TDN expires 02/03- Will plan to file Section [address] assessment of further care and treatment. 02/04/23 Continue Olanzapine Change Valium to qid prn vs scheduled Adderall XR 20 mg a.m. Adderall IR 10 mg noon Adderall IR 20 mg x 1 dose at 1500 today Change Zofran to q 6 hours prn 02/05/23 Patient continues to present with hypomania and some limited insight; however she is amenable to starting lithium. Patient reports reports hx of pancreatits, making lithium preferable choice over Depakote Agrees to starting lithium if she can have Adderall increased back to 4 more doses. Steam Crane Operator feels this is a fair compromise as patient seems likely to benefit from a mood stabilizer and has never been on lithium in the past and Adderall is only being increased 10 more mg increase per dose. Discussed case with Paige Manzanares who agrees with plan; typewriter ribbon winder reviewed kidney function from sending facility and within normal limits Increase Adderall XR to 20mg qpm Start [place] ER 600mg qhs Continue zyprexa for now with hopeful plan to taper and dc if lithium proves helpful 02/06 pt presents as hypomanic, though has been able to reasonably discuss medications and diagnosis. continue tx plan 02/07/23: Improved, organizing her tasks. [place] level 02/09. 02/08/23: [place] level 02/09. Informed Consent: understands and further education needed Reason for continued inpatient stay Substantial Risk for: harm to self, inability to function and rapid decompensation Time Spent With Patient Time: Total time managing care of this patient today ____ minutes.
[2023-02-08 14:32] VITALS: BP 168/82; PULSE 97; RESP 18
[2023-02-08 18:00] VITALS: BP 157/95; PULSE 84; TEMP 37.1; O2SAT 99
[2023-02-08] MEDS: diphenhydrAMINE HCL 25 MG CAPSULE 50 MG PO (20:09)
[2023-02-08] MEDS: Lithium Carbonate ER 300 MG TABLET.ER 600 MG PO (20:09)
[2023-02-09 08:10] VITALS: BP 133/82; PULSE 97; RESP 16; TEMP 36; O2SAT 97
[2023-02-09] MEDS: OLANZapine 10 MG TABLET PO ×2 (08:46→20:39)
[2023-02-09] MEDS: diazePAM 5 MG TABLET 10 MG PO ×4 (08:46→20:38)
[2023-02-09] MEDS: Propranolol HCL 20 MG TABLET PO ×3 (08:46→20:39)
[2023-02-09] MEDS: Gabapentin 300 MG CAPSULE PO ×2 (08:46→20:39)
[2023-02-09] MEDS: Acetaminophen 325 MG TABLET 650 MG PO ×2 (08:46→20:38)
[2023-02-09] MEDS: Dextroamphetamine/Amphetamine XR 10 MG CAP.ER.24H 30 MG PO (08:47)
[2023-02-09 09:21] LABS: Lithium 0.43 mmol/L (0.60-1.20)
[2023-02-09] MEDS: Amphetamine Mixed Salts 10 MG TABLET 20 MG PO (11:00)
[2023-02-09 14:40] VITALS: BP 122/87; PULSE 99
--- NOTE | 2023-02-09 17:26 | HO.PSYCHPN ---
Subjective Subjective Date of Service: 02/09/23 Reason For Visit: Bipolar disorder w/ psychosis Subjective Notes: Section 7 Healthcare Proxy: No Guardianship: No Medical Problems Affecting Mental Status: No Interim History: [place] level 0.43. Pt agrees to increase dosing to 900 mg HS. Care discussed with pts best friend, Swetha [phone]. Swetha has known pt since childhood. Discussed current issues. Swetha encourages that pt be in contact with her and family to begin to plan for new associate attorney search and for discharge planning. Parents are willing to help her. By history they have assisted with associate attorney retention and payment. Pt reports the recent change to Valium with Dr. Llanos has been helpful. She would like to continue. She continues to focus on what she needs to do Medication Compliance: Yes Side effects from medications: No Attending Groups: No Review of Systems Acute medical concerns: No Medical Review of Systems: unchanged Mental Status Exam Mental Status Exam Patient Appearance: Appropriate Patient Orientation: Person, Place, Time and Situation Level of Consciousness: Alert Patient Behavior: Appropriate, Talkative, Cooperative, Anxious, Fearful, Fatigued and Good Eye Contact Mood Description: Withdrawn, Depressed, Fearful, Anxious, Flat, Sad, Nervous and Apprehensive Affect Description: Flat Patient Cognition Impaired: No Ability to Follow Directions: Good Speech Pattern: Perseverating, Spontaneous Speech, Soft-Spoken and Pressured Memory Description: Intact Hallucinations: None Delusions: Not Present Perceptual Disturbances: Depersonalization and Derealization Thought Process: Rumination Thought Content: positive for Circumstantial, positive for Goal Oriented, positive for Perseveration, positive for Suicidal Ideation (denies) and positive for Homicidal Ideation (denies) Depressive Symptoms: Increased Anxiety, Increased Fatigue and Thoughts of /Suicide (denies) Judgement: Fair Diagnostics Vital Signs (24Hr): Vital Signs - 24 hr 02/08/23 18:00 02/09/23 08:10 02/09/23 14:40 Temperature 98.8 F 96.8 F Pulse Rate 84 97 99 Respiratory Rate 16 Blood Pressure 157/95 H 133/82 122/87 Pulse Oximetry 99 97 Oxygen Delivery Method Room Air Room Air BMI result Body Mass Index 27.5 Labs 02/10/23 08:30 Labs: Laboratory Results - last 48 hr 02/09/23 08:32 [place] 0.43 L Medications Medications Current Medications Acetaminophen (Acetaminophen 325 Mg Tablet) 650 mg PO Q6H PRN PRN Reason: Headache/Pain Mild Scale (1-3) Last Admin: 02/09/23 08:46 Dose: 650 mg Al Hydroxide/Mg Hydroxide (Magnesium Hydrox/Alum Hydrox 30 Ml Oral.Susp) 30 ml PO Q6H PRN PRN Reason: Heartburn/Nausea Last Admin: 02/02/23 20:19 Dose: 30 ml Amphetamine/Dextroamphetamine (Amphetamine Mixed Salts 10 Mg Tablet) 20 mg PO 1200 [facility] Last Admin: 02/09/23 11:00 Dose: 20 mg Amphetamine/Dextroamphetamine (Dextroamphetamine/Amphetamine Xr 10 Mg Cap.Er.24h) 30 mg PO DAILY [facility] Last Admin: 02/09/23 08:47 Dose: 30 mg Benzocaine (Benzocaine 20 % Oral Gel 9 Gm Tube) 1 appl MUCOUS MEM Q4H PRN; Protocol PRN Reason: gum pain Last Admin: 02/04/23 19:01 Dose: 1 appl Diazepam (Diazepam 5 Mg Tablet) 10 mg PO QID PRN PRN Reason: anxiety, agitation Last Admin: 02/09/23 12:11 Dose: 10 mg Diphenhydramine HCl (Diphenhydramine Hcl 25 Mg Capsule) 50 mg PO Q4H PRN PRN Reason: Itching Last Admin: 02/08/23 20:09 Dose: 50 mg Gabapentin (Gabapentin 300 Mg Capsule) 300 mg PO BID [facility] Last Admin: 02/09/23 08:46 Dose: 300 mg Hydrocortisone (Hydrocortisone 1 % Cream 28.35 Gm Tube) 1 appl TOPICAL BID PRN; Protocol PRN Reason: rash on legs Last Admin: 02/03/23 18:38 Dose: 1 appl [place] Carbonate ([place] Carbonate Er 300 Mg Tablet.Er) 600 mg PO BEDTIME [facility] Last Admin: 02/08/23 20:09 Dose: 600 mg Magnesium Hydroxide (Milk Of Magnesia 30 Ml Oral.Susp) 30 ml PO DAILY PRN PRN Reason: Constipation Olanzapine (Olanzapine 5 Mg Tablet) 5 mg PO Q4H PRN PRN Reason: psychosis, bryce, agitation Olanzapine (Olanzapine 10 Mg Tablet) 10 mg PO BID [facility] Last Admin: 02/09/23 08:46 Dose: 10 mg Ondansetron HCl (Ondansetron Odt 4 Mg Tab.Rapdis) 4 mg TRANSLINGU Q6H PRN PRN Reason: Nausea Last Admin: 02/04/23 19:41 Dose: 4 mg Propranolol HCl (Propranolol Hcl 20 Mg Tablet) 20 mg PO TID CHARLIE; Protocol Last Admin: 02/09/23 14:44 Dose: 20 mg Trazodone HCl (Trazodone Hcl 25 Mg Halftab) 25 mg PO BEDTIME MRX1 PRN PRN Reason: trouble sleeping Last Admin: 02/07/23 20:38 Dose: 25 mg Allergies Allergies Allergy/AdvReac Type Severity Reaction Status Date / Time gluten AdvReac Gastrointestinal Verified 01/13/23 23:29 Upset lorazepam [From Ativan] AdvReac Headache Verified 10/22/20 19:11 wheat AdvReac Gastrointestinal Verified 01/13/23 23:29 Upset Assessment & Plan Assessment & Plan (1) Bipolar 1 disorder, manic, mild: Status: Acute Code(s): F31.11 - Bipolar disorder, current episode manic without psychotic features, mild Assessment and Plan: pt denies this 01/29 Plan Mrs. Peralta is a 47 year-old woman with hx of Bipolar Disorder who self presented to [facility] ED reporting feeling tired, with nausea, not sleeping, more anxious. Pt was recently discharged from [facility] after 3 week admission. Pt presents with tangential speech, hyperverbal but not pressured. No SI/HI. No psychosis or delusional content noted or reported. Pt reports not sleeping well. We discussed risks, benefits and alternative treatment options. Pt reports her medications have been helpful including combination or stimulant and xanax. Pt not open to other medication options that may include a mood stabilizer even if less sedation options than depakote. She does not appear at imminent risk of harm to self or others at this point. PLAN 1. Admit to M5, CV 15 minutes checks for safety 2. continue lower dose of adderall- at this point pt reports she uses for physical fatigue. She has not slept in days so in agreement to reduce dose in order aid sleep. but explained that may worsen hypomania or bryce- which pt does not think she has. 3. Obtain collateral information 4. Aftercare plan 01/15: Continue current treatment plan. 01/16: Continue treatment plan unchanged. 01/17/23: Change Adderall dosing to 20 mg a.m. 30 mg noon Change Benadryl to 50 mg [id number] prn Discontinue Trazodone 01/20/23 Family meeting 01/23/23. 01/21/23 Increase Propranolol to 15 mg tid 01/23/23 Continue current regime. 01/24/23 Continue current regime and plan Message left to schedule peer review per [facility] request. 01/25: Continue current plan. 01/27/23: Continue current plan. 01/28 continue tx. 01/29 change xanax to diazepam for weekend- seems like adderall dose is high for someone with anxiety like this- and thought disorganziation? 01/30 jaw better with diazepam, pt more confused and disorganized today after several room shifts due to issues of other patients- thrown off quite a bit by this and didn't get sleep - 01/31/23- Pt declines change of medication treatment plan. Demands discharge, refuses to sign three day notice Possible Section 7. 02/02/23 TDN expires 02/03- Will plan to file Section [address] assessment of further care and treatment. 02/04/23 Continue Olanzapine Change Valium to qid prn vs scheduled Adderall XR 20 mg a.m. Adderall IR 10 mg noon Adderall IR 20 mg x 1 dose at 1500 today Change Zofran to q 6 hours prn 02/05/23 Patient continues to present with hypomania and some limited insight; however she is amenable to starting lithium. Patient reports reports hx of pancreatits, making lithium preferable choice over Depakote Agrees to starting lithium if she can have Adderall increased back to 4 more doses. Rail Express Clerk feels this is a fair compromise as patient seems likely to benefit from a mood stabilizer and has never been on lithium in the past and Adderall is only being increased 10 more mg increase per dose. Discussed case with Paige Manzanares who agrees with plan; greeting card writer reviewed kidney function from sending facility and within normal limits Increase Adderall XR to 20mg qpm Start [place] ER 600mg qhs Continue zyprexa for now with hopeful plan to taper and dc if lithium proves helpful 02/06 pt presents as hypomanic, though has been able to reasonably discuss medications and diagnosis. continue tx plan 02/07/23: Improved, organizing her tasks. [place] level 02/09. 02/08/23: [place] level 02/09. 02/09/23 [place] level 0.43. Increase dose to 900 mg HS. Patient educated on: medication risk/benefits and therapeutic strategies Informed Consent: understands Reason for continued inpatient stay Substantial Risk for: med/psych decompensation Time Spent With Patient Time: Total time managing care of this patient today ____ minutes.
[2023-02-09 20:36] VITALS: BP 120/82; PULSE 92; RESP 18; TEMP 36.7; O2SAT 99
[2023-02-09] MEDS: diphenhydrAMINE HCL 25 MG CAPSULE 50 MG PO (20:38)
[2023-02-09] MEDS: Lithium Carbonate ER 450 MG TABLET.ER 900 MG PO (20:39)
[2023-02-10 06:00] VITALS: BP 131/70; PULSE 115; RESP 16
[2023-02-10] MEDS: Gabapentin 300 MG CAPSULE PO ×2 (08:15→21:57)
[2023-02-10] MEDS: Dextroamphetamine/Amphetamine XR 10 MG CAP.ER.24H 30 MG PO (08:15)
[2023-02-10] MEDS: OLANZapine 10 MG TABLET PO ×2 (08:15→21:56)
[2023-02-10] MEDS: diazePAM 5 MG TABLET 10 MG PO ×2 (08:15→14:14)
[2023-02-10] MEDS: Propranolol HCL 20 MG TABLET PO ×3 (08:15→21:57)
[2023-02-10] MEDS: Acetaminophen 325 MG TABLET 650 MG PO ×2 (08:15→21:56)
[2023-02-10 09:42] LABS: Blood Urea Nitrogen 7 mg/dL (9-16); Creatinine Clr Calc Pharmacy 115.3; Estimated Glomerular Filt Rate > 60
[2023-02-10 10:06] LABS: TSH reflex Free T4 1.58 uIU/mL (0.32-4.0)
[2023-02-10] MEDS: Amphetamine Mixed Salts 10 MG TABLET 20 MG PO (11:05)
[2023-02-10 14:16] VITALS: BP 139/105; PULSE 111
--- NOTE | 2023-02-10 14:42 | P.PNPSI_ITS ---
Subjective Subjective Date of Service: 02/10/23 Reason For Visit: Bipolar disorder w/ psychosis Subjective Notes: Section 7 Healthcare Proxy: No Guardianship: No Medical Problems Affecting Mental Status: No Interim History: Reviewed with Angélica my conversation with her friend Swetha. We discussed priorities now-her health, securing legal representation, and moving forward with her future. Swetha is willing to advise Angélica. I have encouraged her to make contact. Swetha reports parents are willing to assist her as well. Pt states she understands, but is reluctant. She will however, connect with Swetha. Medication Compliance: Yes Side effects from medications: No Attending Groups: No Review of Systems Acute medical concerns: No Medical Review of Systems: unchanged Mental Status Exam Mental Status Exam Patient Appearance: Appropriate Patient Orientation: Person, Place, Time and Situation Level of Consciousness: Alert Patient Behavior: Appropriate, Talkative, Cooperative, Anxious, Fearful, Fatigued and Good Eye Contact Mood Description: Withdrawn, Depressed, Fearful, Anxious, Flat, Sad, Nervous and Apprehensive Affect Description: Flat Patient Cognition Impaired: No Ability to Follow Directions: Good Speech Pattern: Perseverating, Spontaneous Speech, Soft-Spoken and Pressured Memory Description: Intact Hallucinations: None Delusions: Not Present Perceptual Disturbances: Depersonalization and Derealization Thought Process: Rumination Thought Content: positive for Circumstantial, positive for Goal Oriented, positive for Perseveration, positive for Suicidal Ideation (denies) and positive for Homicidal Ideation (denies) Depressive Symptoms: Increased Anxiety, Increased Fatigue and Thoughts of /Suicide (denies) Judgement: Fair Diagnostics Vital Signs (24Hr): Vital Signs - 24 hr 02/09/23 20:36 02/10/23 06:00 02/10/23 14:16 Temperature 98.1 F Pulse Rate 92 115 H 111 H Respiratory Rate 18 16 Blood Pressure 120/82 131/70 139/105 H Pulse Oximetry 99 Oxygen Delivery Method Room Air Room Air BMI result Body Mass Index 27.5 Labs 02/10/23 08:30 Labs: Laboratory Results - last 48 hr 02/09/23 02/10/23 02/10/23 08:32 08:30 08:30 BUN 7 L Creatinine 0.76 Estim Creat Clear Calc 115.3 Estimated GFR > 60 TSH 1.58 [place] 0.43 L 0.60 Medications Medications Current Medications Acetaminophen (Acetaminophen 325 Mg Tablet) 650 mg PO Q6H PRN PRN Reason: Headache/Pain Mild Scale (1-3) Last Admin: 02/10/23 08:15 Dose: 650 mg Al Hydroxide/Mg Hydroxide (Magnesium Hydrox/Alum Hydrox 30 Ml Oral.Susp) 30 ml PO Q6H PRN PRN Reason: Heartburn/Nausea Last Admin: 02/02/23 20:19 Dose: 30 ml Amphetamine/Dextroamphetamine (Amphetamine Mixed Salts 10 Mg Tablet) 20 mg PO 1200 [facility] Last Admin: 02/10/23 11:05 Dose: 20 mg Amphetamine/Dextroamphetamine (Dextroamphetamine/Amphetamine Xr 10 Mg Cap.Er.24h) 30 mg PO DAILY [facility] Last Admin: 02/10/23 08:15 Dose: 30 mg Benzocaine (Benzocaine 20 % Oral Gel 9 Gm Tube) 1 appl MUCOUS MEM Q4H PRN; Protocol PRN Reason: gum pain Last Admin: 02/04/23 19:01 Dose: 1 appl Diazepam (Diazepam 5 Mg Tablet) 10 mg PO QID PRN PRN Reason: anxiety, agitation Last Admin: 02/10/23 14:14 Dose: 10 mg Diphenhydramine HCl (Diphenhydramine Hcl 25 Mg Capsule) 50 mg PO Q4H PRN PRN Reason: Itching Last Admin: 02/09/23 20:38 Dose: 50 mg Gabapentin (Gabapentin 300 Mg Capsule) 300 mg PO BID [facility] Last Admin: 02/10/23 08:15 Dose: 300 mg Hydrocortisone (Hydrocortisone 1 % Cream 28.35 Gm Tube) 1 appl TOPICAL BID PRN; Protocol PRN Reason: rash on legs Last Admin: 02/03/23 18:38 Dose: 1 appl [place] Carbonate ([place] Carbonate Er 450 Mg Tablet.Er) 900 mg PO BEDTIME [facility] Last Admin: 02/09/23 20:39 Dose: 900 mg Magnesium Hydroxide (Milk Of Magnesia 30 Ml Oral.Susp) 30 ml PO DAILY PRN PRN Reason: Constipation Olanzapine (Olanzapine 5 Mg Tablet) 5 mg PO Q4H PRN PRN Reason: psychosis, bryce, agitation Olanzapine (Olanzapine 10 Mg Tablet) 10 mg PO BID [facility] Last Admin: 02/10/23 08:15 Dose: 10 mg Ondansetron HCl (Ondansetron Odt 4 Mg Tab.Rapdis) 4 mg TRANSLINGU Q6H PRN PRN Reason: Nausea Last Admin: 02/04/23 19:41 Dose: 4 mg Propranolol HCl (Propranolol Hcl 20 Mg Tablet) 20 mg PO TID CHARLIE; Protocol Last Admin: 02/10/23 14:14 Dose: 20 mg Trazodone HCl (Trazodone Hcl 25 Mg Halftab) 25 mg PO BEDTIME MRX1 PRN PRN Reason: trouble sleeping Last Admin: 02/07/23 20:38 Dose: 25 mg Allergies Allergies Allergy/AdvReac Type Severity Reaction Status Date / Time gluten AdvReac Gastrointestinal Verified 01/13/23 23:29 Upset lorazepam [From Ativan] AdvReac Headache Verified 10/22/20 19:11 wheat AdvReac Gastrointestinal Verified 01/13/23 23:29 Upset Assessment & Plan Assessment & Plan (1) Bipolar 1 disorder, manic, mild: Status: Acute Code(s): F31.11 - Bipolar disorder, current episode manic without psychotic features, mild Assessment and Plan: pt denies this 01/29 Plan Mrs. Peralta is a 47 year-old woman with hx of Bipolar Disorder who self presented to [facility] ED reporting feeling tired, with nausea, not sleeping, more anxious. Pt was recently discharged from [facility] after 3 week admission. Pt presents with tangential speech, hyperverbal but not pressured. No SI/HI. No psychosis or delusional content noted or reported. Pt reports not sleeping well. We discussed risks, benefits and alternative treatment options. Pt reports her medications have been helpful including combination or stimulant and xanax. Pt not open to other medication options that may include a mood stabilizer even if less sedation options than depakote. She does not appear at imminent risk of harm to self or others at this point. PLAN 1. Admit to M5, CV 15 minutes checks for safety 2. continue lower dose of adderall- at this point pt reports she uses for physical fatigue. She has not slept in days so in agreement to reduce dose in order aid sleep. but explained that may worsen hypomania or bryce- which pt does not think she has. 3. Obtain collateral information 4. Aftercare plan 01/15: Continue current treatment plan. 01/16: Continue treatment plan unchanged. 01/17/23: Change Adderall dosing to 20 mg a.m. 30 mg noon Change Benadryl to 50 mg [id number] prn Discontinue Trazodone 01/20/23 Family meeting 01/23/23. 01/21/23 Increase Propranolol to 15 mg tid 01/23/23 Continue current regime. 01/24/23 Continue current regime and plan Message left to schedule peer review per [facility] request. 01/25: Continue current plan. 01/27/23: Continue current plan. 01/28 continue tx. 01/29 change xanax to diazepam for weekend- seems like adderall dose is high for someone with anxiety like this- and thought disorganziation? 01/30 jaw better with diazepam, pt more confused and disorganized today after several room shifts due to issues of other patients- thrown off quite a bit by this and didn't get sleep - 01/31/23- Pt declines change of medication treatment plan. Demands discharge, refuses to sign three day notice Possible Section 7. 02/02/23 TDN expires 02/03- Will plan to file Section [address] assessment of further care and treatment. 02/04/23 Continue Olanzapine Change Valium to qid prn vs scheduled Adderall XR 20 mg a.m. Adderall IR 10 mg noon Adderall IR 20 mg x 1 dose at 1500 today Change Zofran to q 6 hours prn 02/05/23 Patient continues to present with hypomania and some limited insight; however she is amenable to starting lithium. Patient reports reports hx of pancreatits, making lithium preferable choice over Depakote Agrees to starting lithium if she can have Adderall increased back to 4 more doses. Injection Mold Technician feels this is a fair compromise as patient seems likely to benefit from a mood stabilizer and has never been on lithium in the past and Adderall is only being increased 10 more mg increase per dose. Discussed case with Paige Manzanares who agrees with plan; data analyst report writer reviewed kidney function from sending facility and within normal limits Increase Adderall XR to 20mg qpm Start [place] ER 600mg qhs Continue zyprexa for now with hopeful plan to taper and dc if lithium proves helpful 02/06 pt presents as hypomanic, though has been able to reasonably discuss medications and diagnosis. continue tx plan 02/07/23: Improved, organizing her tasks. [place] level 02/09. 02/08/23: [place] level 02/09. 7/20/23 Pt will attempt to make contact with her friend Swetha who is willing to advise her regarding finding an title attorney to represent her in the upcoming court appointments. Patient educated on: medication risk/benefits and therapeutic strategies Informed Consent: understands and further education needed (support, reassurance) Reason for continued inpatient stay Substantial Risk for: med/psych decompensation Time Spent With Patient Time: Total time managing care of this patient today ____ minutes.
[2023-02-10 17:31] VITALS: BP 135/89; PULSE 95; TEMP 36.3; O2SAT 100
[2023-02-10 21:45] VITALS: BP 176/90; PULSE 104
[2023-02-10] MEDS: diphenhydrAMINE HCL 25 MG CAPSULE 50 MG PO (21:57)
[2023-02-10] MEDS: Lithium Carbonate ER 450 MG TABLET.ER 900 MG PO (21:57)
[2023-02-11 08:15] VITALS: BP 149/80; PULSE 84; RESP 16; TEMP 36; O2SAT 100
[2023-02-11] MEDS: Propranolol HCL 20 MG TABLET PO ×2 (08:35→14:28)
[2023-02-11] MEDS: Acetaminophen 325 MG TABLET 650 MG PO ×2 (08:35→20:21)
[2023-02-11] MEDS: OLANZapine 10 MG TABLET PO ×2 (08:36→20:20)
[2023-02-11] MEDS: Gabapentin 300 MG CAPSULE PO ×2 (08:36→20:21)
[2023-02-11] MEDS: diazePAM 5 MG TABLET 10 MG PO ×3 (08:36→20:24)
[2023-02-11] MEDS: Dextroamphetamine/Amphetamine XR 10 MG CAP.ER.24H 30 MG PO (08:36)
[2023-02-11] MEDS: Hydrocortisone 1 % Cream 28.35 GM TUBE 1 APPL TOPICAL (10:00)
[2023-02-11] MEDS: Amphetamine Mixed Salts 10 MG TABLET 20 MG PO (11:00)
[2023-02-11 14:23] VITALS: BP 131/85; PULSE 103
--- NOTE | 2023-02-11 15:55 | P.PNPSI_ITS ---
Subjective Subjective Date of Service: 02/11/23 Reason For Visit: Bipolar disorder w/ psychosis Subjective Notes: Section 7 Healthcare Proxy: No Guardianship: No Medical Problems Affecting Mental Status: No Interim History: Med review. Will increase Inderal to 25 mg tid in discussion with pt. I feel better actually with this regime Discussed potential discharge for next week. Discussed pt using time to hear ideas from friend, family. Questions-where will she live, how will she find another almond blancher hand. Encouraged to hear ideas from the people who care about her. that makes me anxious . Medication Compliance: Yes Side effects from medications: No Attending Groups: Intermittent Review of Systems Acute medical concerns: No Medical Review of Systems: unchanged Mental Status Exam Mental Status Exam Patient Appearance: Appropriate Patient Orientation: Person, Place, Time and Situation Level of Consciousness: Alert Patient Behavior: Appropriate, Talkative, Cooperative, Anxious, Fearful, Fatigued and Good Eye Contact Mood Description: Withdrawn, Depressed, Fearful, Anxious, Flat, Sad, Nervous and Apprehensive Affect Description: Flat Patient Cognition Impaired: No Ability to Follow Directions: Good Speech Pattern: Perseverating, Spontaneous Speech, Soft-Spoken and Pressured Memory Description: Intact Hallucinations: None Delusions: Not Present Perceptual Disturbances: Depersonalization and Derealization Thought Process: Rumination Thought Content: positive for Circumstantial, positive for Goal Oriented, posi tive for Perseveration, positive for Suicidal Ideation (denies) and positive for Homicidal Ideation (denies) Depressive Symptoms: Increased Anxiety, Increased Fatigue and Thoughts of /Suicide (denies) Judgement: Fair Diagnostics Vital Signs (24Hr): Vital Signs - 24 hr 02/10/23 17:31 02/10/23 21:45 02/11/23 08:15 Temperature 97.3 F 96.8 F Pulse Rate 95 104 H 84 Respiratory Rate 16 Blood Pressure 135/89 176/90 H 149/80 H Pulse Oximetry 100 100 Oxygen Delivery Method Room Air Room Air 02/11/23 14:23 Temperature Pulse Rate 103 H Respiratory Rate Blood Pressure 131/85 Pulse Oximetry Oxygen Delivery Method BMI result Body Mass Index 27.5 Labs 02/10/23 08:30 Labs: Laboratory Results - last 48 hr 02/10/23 02/10/23 08:30 08:30 BUN 7 L Creatinine 0.76 Estim Creat Clear Calc 115.3 Estimated GFR > 60 TSH 1.58 [place] 0.60 Medications Medications Current Medications Acetaminophen (Acetaminophen 325 Mg Tablet) 650 mg PO Q6H PRN PRN Reason: Headache/Pain Mild Scale (1-3) Last Admin: 02/11/23 08:35 Dose: 650 mg Al Hydroxide/Mg Hydroxide (Magnesium Hydrox/Alum Hydrox 30 Ml Oral.Susp) 30 ml PO Q6H PRN PRN Reason: Heartburn/Nausea Last Admin: 02/02/23 20:19 Dose: 30 ml Amphetamine/Dextroamphetamine (Amphetamine Mixed Salts 10 Mg Tablet) 20 mg PO 1200 [facility] Last Admin: 02/11/23 11:00 Dose: 20 mg Amphetamine/Dextroamphetamine (Dextroamphetamine/Amphetamine Xr 10 Mg Cap.Er.24h) 30 mg PO DAILY [facility] Last Admin: 02/11/23 08:36 Dose: 30 mg Benzocaine (Benzocaine 20 % Oral Gel 9 Gm Tube) 1 appl MUCOUS MEM Q4H PRN; Protocol PRN Reason: gum pain Last Admin: 02/04/23 19:01 Dose: 1 appl Diazepam (Diazepam 5 Mg Tablet) 10 mg PO QID PRN PRN Reason: anxiety, agitation Last Admin: 02/11/23 14:28 Dose: 10 mg Diphenhydramine HCl (Diphenhydramine Hcl 25 Mg Capsule) 50 mg PO Q4H PRN PRN Reason: Itching Last Admin: 02/10/23 21:57 Dose: 50 mg Gabapentin (Gabapentin 300 Mg Capsule) 300 mg PO BID [facility] Last Admin: 02/11/23 08:36 Dose: 300 mg Hydrocortisone (Hydrocortisone 1 % Cream 28.35 Gm Tube) 1 appl TOPICAL BID PRN; Protocol PRN Reason: rash on legs Last Admin: 02/11/23 10:00 Dose: 1 appl [place] Carbonate ([place] Carbonate Er 450 Mg Tablet.Er) 900 mg PO BEDTIME [facility] Last Admin: 02/10/23 21:57 Dose: 900 mg Magnesium Hydroxide (Milk Of Magnesia 30 Ml Oral.Susp) 30 ml PO DAILY PRN PRN Reason: Constipation Olanzapine (Olanzapine 5 Mg Tablet) 5 mg PO Q4H PRN PRN Reason: psychosis, bryce, agitation Olanzapine (Olanzapine 10 Mg Tablet) 10 mg PO BID [facility] Last Admin: 02/11/23 08:36 Dose: 10 mg Ondansetron HCl (Ondansetron Odt 4 Mg Tab.Rapdis) 4 mg TRANSLINGU Q6H PRN PRN Reason: Nausea Last Admin: 02/04/23 19:41 Dose: 4 mg Propranolol HCl (Propranolol Hcl 20 Mg Tablet) 20 mg PO TID CHARLIE; Protocol Last Admin: 02/11/23 14:28 Dose: 20 mg Trazodone HCl (Trazodone Hcl 25 Mg Halftab) 25 mg PO BEDTIME MRX1 PRN PRN Reason: trouble sleeping Last Admin: 02/07/23 20:38 Dose: 25 mg Allergies Allergies Allergy/AdvReac Type Severity Reaction Status Date / Time gluten AdvReac Gastrointestinal Verified 01/13/23 23:29 Upset lorazepam [From Ativan] AdvReac Headache Verified 10/22/20 19:11 wheat AdvReac Gastrointestinal Verified 01/13/23 23:29 Upset Assessment & Plan Assessment & Plan (1) Bipolar 1 disorder, manic, mild: Status: Acute Code(s): F31.11 - Bipolar disorder, current episode manic without psychotic features, mild Assessment and Plan: pt denies this 01/29 Plan Mrs. Peralta is a 47 year-old woman with hx of Bipolar Disorder who self presented to [facility] ED reporting feeling tired, with nausea, not sleeping, more anxious. Pt was recently discharged from [facility] after 3 week admission. Pt presents with tangential speech, hyperverbal but not pressured. No SI/HI. No psychosis or delusional content noted or reported. Pt reports not sleeping well. We discussed risks, benefits and alternative treatment options. Pt reports her medications have been helpful including combination or stimulant and xanax. Pt not open to other medication options that may include a mood stabilizer even if less sedation options than depakote. She does not appear at imminent risk of harm to self or others at this point. PLAN 1. Admit to M5, CV 15 minutes checks for safety 2. continue lower dose of adderall- at this point pt reports she uses for physical fatigue. She has not slept in days so in agreement to reduce dose in order aid sleep. but explained that may worsen hypomania or bryce- which pt does not think she has. 3. Obtain collateral information 4. Aftercare plan 01/15: Continue current treatment plan. 01/16: Continue treatment plan unchanged. 01/17/23: Change Adderall dosing to 20 mg a.m. 30 mg noon Change Benadryl to 50 mg [id number] prn Discontinue Trazodone 01/20/23 Family meeting 01/23/23. 01/21/23 Increase Propranolol to 15 mg tid 01/23/23 Continue current regime. 01/24/23 Continue current regime and plan Message left to schedule peer review per [facility] request. 01/25: Continue current plan. 01/27/23: Continue current plan. 01/28 continue tx. 01/29 change xanax to diazepam for weekend- seems like adderall dose is high for someone with anxiety like this- and thought disorganziation? 01/30 jaw better with diazepam, pt more confused and disorganized today after several room shifts due to issues of other patients- thrown off quite a bit by this and didn't get sleep - 01/31/23- Pt declines change of medication treatment plan. Demands discharge, refuses to sign three day notice Possible Section 7. 02/02/23 TDN expires 02/03- Will plan to file Section [address] assessment of further care and treatment. 02/04/23 Continue Olanzapine Change Valium to qid prn vs scheduled Adderall XR 20 mg a.m. Adderall IR 10 mg noon Adderall IR 20 mg x 1 dose at 1500 today Change Zofran to q 6 hours prn 02/05/23 Patient continues to present with hypomania and some limited insight; however she is amenable to starting lithium. Patient reports reports hx of pancreatits, making lithium preferable choice over Depakote Agrees to starting lithium if she can have Adderall increased back to 4 more doses. Drip Pumper feels this is a fair compromise as patient seems likely to benefit from a mood stabilizer and has never been on lithium in the past and Adderall is only being increased 10 more mg increase per dose. Discussed case with Paige Manzanares who agrees with plan; abstract writer reviewed kidney function f rom sending facility and within normal limits Increase Adderall XR to 20mg qpm Start [place] ER 600mg qhs Continue zyprexa for now with hopeful plan to taper and dc if lithium proves helpful 02/06 pt presents as hypomanic, though has been able to reasonably discuss medications and diagnosis. continue tx plan 02/07/23: Improved, organizing her tasks. [place] level 02/09. 02/08/23: [place] level 02/09. 02/10/23 Pt will attempt to make contact with her friend Swetha who is willing to advise her regarding finding an almond blancher hand to represent her in the upcoming court appointments. 02/11/21 Increase Inderal to 25 mg tid Patient educated on: medication risk/benefits and therapeutic strategies Informed Consent: understands and further education needed Reason for continued inpatient stay Substantial Risk for: rapid decompensation Time Spent With Patient Time: Total time managing care of this patient today ____ minutes.
[2023-02-11 18:00] VITALS: BP 138/94; PULSE 88; RESP 20; TEMP 35.9; O2SAT 100
[2023-02-11] MEDS: diphenhydrAMINE HCL 25 MG CAPSULE 50 MG PO (20:21)
[2023-02-11] MEDS: Propranolol HCL 10 MG TABLET 25 MG PO (20:21)
[2023-02-11] MEDS: Lithium Carbonate ER 450 MG TABLET.ER 900 MG PO (20:23)
[2023-02-12 07:45] VITALS: BP 132/91; PULSE 91; RESP 18; TEMP 36.8; O2SAT 98
[2023-02-12] MEDS: diazePAM 5 MG TABLET 10 MG PO ×3 (08:26→19:46)
[2023-02-12] MEDS: Dextroamphetamine/Amphetamine XR 10 MG CAP.ER.24H 30 MG PO (08:26)
[2023-02-12] MEDS: Gabapentin 300 MG CAPSULE PO ×2 (08:27→19:47)
[2023-02-12] MEDS: OLANZapine 10 MG TABLET PO ×2 (08:30→19:47)
[2023-02-12] MEDS: Acetaminophen 325 MG TABLET 650 MG PO ×2 (08:30→19:46)
[2023-02-12] MEDS: Propranolol HCL 10 MG TABLET 25 MG PO ×3 (08:31→19:45)
[2023-02-12] MEDS: Amphetamine Mixed Salts 10 MG TABLET 20 MG PO (11:00)
--- NOTE | 2023-02-12 14:45 | P.PNPSI_ITS ---
Subjective Subjective Date of Service: 02/12/23 Reason For Visit: Bipolar disorder w/ psychosis Interim History: Patient seen and discussed. She reports doing well and offers no complaints today. Concerned about plans for DC. No SI. Sleep and appetite good. Mostly isolating to her room. Review of Systems Review of Systems Patient states that she has no acute medical complaints at this time Constitutional: Reports difficulty sleeping, Reports fatigue, Reports headache(s) and Reports lethargy Reports headache(s) Reports headache(s) Endocrine: Reports fatigue Mental Status Exam Mental Status Exam Narrative: Appearance: casually groomed, fair hygiene, jaw pain Behavior: guarded at first Psychomotor: no agitation or retardation noted Speech: clear, regular rate, not pressured, spontaneous TP: circumstantial. TC: focused on divorce and its ramification on her life and health. Mood: anxious Affect: congruent, dysphoric SI: denies HI: denies VH/AH: none Delusions: no delusional content noted or reported Insight/judgment: fair x 2. Memory/cog: alert, oriented x 3. grossly intact to conversational testing. Patient Appearance: Appropriate Patient Orientation: Person, Place, Time and Situation Level of Consciousness: Alert Patient Behavior: Appropriate, Talkative, Cooperative, Anxious, Fearful, Fatigued and Good Eye Contact Mood Description: Withdrawn, Depressed, Fearful, Anxious, Flat, Sad, Nervous and Apprehensive Affect Description: Flat Patient Cognition Impaired: No Ability to Follow Directions: Good Speech Pattern: Perseverating, Spontaneous Speech, Soft-Spoken and Pressured Memory Description: Intact Diagnostics Vital Signs (24Hr): Vital Signs - 24 hr 02/11/23 18:00 02/12/23 07:45 Temperature 96.6 F L 98.2 F Pulse Rate 88 91 Respiratory Rate 20 18 Blood Pressure 138/94 H 132/91 H Pulse Oximetry 100 98 Oxygen Delivery Method Room Air Room Air BMI result Body Mass Index 27.5 Labs 02/10/23 08:30 Medications Medications Current Medications Acetaminophen (Acetaminophen 325 Mg Tablet) 650 mg PO Q6H PRN PRN Reason: Headache/Pain Mild Scale (1-3) Last Admin: 02/12/23 08:30 Dose: 650 mg Al Hydroxide/Mg Hydroxide (Magnesium Hydrox/Alum Hydrox 30 Ml Oral.Susp) 30 ml PO Q6H PRN PRN Reason: Heartburn/Nausea Last Admin: 02/02/23 20:19 Dose: 30 ml Amphetamine/Dextroamphetamine (Amphetamine Mixed Salts 10 Mg Tablet) 20 mg PO 1200 CHARLIE Last Admin: 02/12/23 11:00 Dose: 20 mg Amphetamine/Dextroamphetamine (Dextroamphetamine/Amphetamine Xr 10 Mg Cap.Er.24h) 30 mg PO DAILY [facility] Last Admin: 02/12/23 08:26 Dose: 30 mg Benzocaine (Benzocaine 20 % Oral Gel 9 Gm Tube) 1 appl MUCOUS MEM Q4H PRN; Protocol PRN Reason: gum pain Last Admin: 02/04/23 19:01 Dose: 1 appl Diazepam (Diazepam 5 Mg Tablet) 10 mg PO QID PRN PRN Reason: anxiety, agitation Last Admin: 02/12/23 14:28 Dose: 10 mg Diphenhydramine HCl (Diphenhydramine Hcl 25 Mg Capsule) 50 mg PO Q4H PRN PRN Reason: Itching Last Admin: 02/11/23 20:21 Dose: 50 mg Gabapentin (Gabapentin 300 Mg Capsule) 300 mg PO BID [facility] Last Admin: 02/12/23 08:27 Dose: 300 mg Hydrocortisone (Hydrocortisone 1 % Cream 28.35 Gm Tube) 1 appl TOPICAL BID PRN; Protocol PRN Reason: rash on legs Last Admin: 02/11/23 10:00 Dose: 1 appl [place] Carbonate ([place] Carbonate Er 450 Mg Tablet.Er) 900 mg PO BEDTIME [facility] Last Admin: 02/11/23 20:23 Dose: 900 mg Magnesium Hydroxide (Milk Of Magnesia 30 Ml Oral.Susp) 30 ml PO DAILY PRN PRN Reason: Constipation Olanzapine (Olanzapine 5 Mg Tablet) 5 mg PO Q4H PRN PRN Reason: psychosis, bryce, agitation Olanzapine (Olanzapine 10 Mg Tablet) 10 mg PO BID [facility] Last Admin: 02/12/23 08:30 Dose: 10 mg Ondansetron HCl (Ondansetron Odt 4 Mg Tab.Rapdis) 4 mg TRANSLINGU Q6H PRN PRN Reason: Nausea Last Admin: 02/04/23 19:41 Dose: 4 mg Propranolol HCl (Propranolol Hcl 10 Mg Tablet) 25 mg PO TID [facility]; Protocol Last Admin: 02/12/23 14:28 Dose: 25 mg Trazodone HCl (Trazodone Hcl 25 Mg Halftab) 25 mg PO BEDTIME MRX1 PRN PRN Reason: trouble sleeping Last Admin: 02/07/23 20:38 Dose: 25 mg Allergies Allergies Allergy/AdvReac Type Severity Reaction Status Date / Time gluten AdvReac Gastrointestinal Verified 01/13/23 23:29 Upset lorazepam [From Ativan] AdvReac Headache Verified 10/22/20 19:11 wheat AdvReac Gastrointestinal Verified 01/13/23 23:29 Upset Assessment & Plan Assessment & Plan (1) Bipolar 1 disorder, manic, mild: Status: Acute Code(s): F31.11 - Bipolar disorder, current episode manic without psychotic features, mild Assessment and Plan: pt denies this 01/29 Plan Mrs. Peralta is a 47 year-old woman with hx of Bipolar Disorder who self presented to [facility] ED reporting feeling tired, with nausea, not sleeping, more anxious. Pt was recently discharged from [facility] after 3 week admission. Pt presents with tangential speech, hyperverbal but not pressured. No SI/HI. No psychosis or delusional content noted or reported. Pt reports not sleeping well. We discussed risks, benefits and alternative treatment options. Pt reports her medications have been helpful including combination or stimulant and xanax. Pt not open to other medication options that may include a mood stabilizer even if less sedation options than depakote. She does not appear at imminent risk of harm to self or others at this point. PLAN 1. Admit to M5, CV 15 minutes checks for safety 2. continue lower dose of adderall- at this point pt reports she uses for physical fatigue. She has not slept in days so in agreement to reduce dose in order aid sleep. but explained that may worsen hypomania or bryce- which pt does not think she has. 3. Obtain collateral information 4. Aftercare plan 01/15: Continue current treatment plan. 01/16: Continue treatment plan unchanged. 01/17/23: Change Adderall dosing to 20 mg a.m. 30 mg noon Change Benadryl to 50 mg [id number] prn Discontinue Trazodone 01/20/23 Family meeting 01/23/23. 01/21/23 Increase Propranolol to 15 mg tid 01/23/23 Continue current regime. 01/24/23 Continue current regime and plan Message left to schedule peer review per [facility] request. 01/25: Continue current plan. 01/27/23: Continue current plan. 01/28 continue tx. 01/29 change xanax to diazepam for weekend- seems like adderall dose is high for someone with anxiety like this- and thought disorganziation? 01/30 jaw better with diazepam, pt more confused and disorganized today after several room shifts due to issues of other patients- thrown off quite a bit by this and didn't get sleep - 01/31/23- Pt declines change of medication treatment plan. Demands discharge, refuses to sign three day notice Possible Section 7. 02/02/23 TDN expires 02/03- Will plan to file Section [address] assessment of further care and treatment. 02/04/23 Continue Olanzapine Change Valium to qid prn vs scheduled Adderall XR 20 mg a.m. Adderall IR 10 mg noon Adderall IR 20 mg x 1 dose at 1500 today Change Zofran to q 6 hours prn 02/05/23 Patient continues to present with hypomania and some limited insight; however she is amenable to starting lithium. Patient reports reports hx of pancreatits, making lithium preferable choice over Depakote Agrees to starting lithium if she can have Adderall increased back to 4 more doses. Financial Analyst Intern feels this is a fair compromise as patient seems likely to benefit from a mood stabilizer and has never been on lithium in the past and Adderall is only being increased 10 more mg increase per dose. Discussed case with Paige Manzanares who agrees with plan; handbook writer reviewed kidney function from sending facility and within normal limits Increase Adderall XR to 20mg qpm Start Frostproof ER 600mg qhs Continue zyprexa for now with hopeful plan to taper and dc if lithium proves helpful 02/06 pt presents as hypomanic, though has been able to reasonably discuss medications and diagnosis. continue tx plan 02/07/23: Improved, organizing her tasks. [place] level 02/09. 02/08/23: [place] level 02/09. 02/10/23 Pt will attempt to make contact with her friend Swetha who is willing to advise her regarding finding an bleach chlorinator to represent her in the upcoming court appointments. 02/11/21 Increase Inderal to 25 mg ti: Continue treatment plan Reason for continued inpatient stay Substantial Risk for: harm to self, inability to function and rapid decompensation Time Spent With Patient Time: Total time managing care of this patient today ____ minutes.
[2023-02-12 19:45] VITALS: BP 128/81; PULSE 88; RESP 18; TEMP 36.1; O2SAT 100
[2023-02-12] MEDS: diphenhydrAMINE HCL 25 MG CAPSULE 50 MG PO (19:46)
[2023-02-12] MEDS: Lithium Carbonate ER 450 MG TABLET.ER 900 MG PO (19:47)
[2023-02-13 06:00] VITALS: BP 149/86; PULSE 86; RESP 16; TEMP 36.8; O2SAT 98
[2023-02-13] MEDS: Dextroamphetamine/Amphetamine XR 10 MG CAP.ER.24H 30 MG PO (09:10)
[2023-02-13] MEDS: Propranolol HCL 10 MG TABLET 25 MG PO ×3 (09:10→19:21)
[2023-02-13] MEDS: diazePAM 5 MG TABLET 10 MG PO ×3 (09:10→19:23)
[2023-02-13] MEDS: Acetaminophen 325 MG TABLET 650 MG PO ×2 (09:10→19:20)
[2023-02-13] MEDS: OLANZapine 10 MG TABLET PO ×2 (09:11→19:23)
[2023-02-13] MEDS: Gabapentin 300 MG CAPSULE PO ×2 (09:11→19:23)
--- NOTE | 2023-02-13 10:51 | P.PNPSI_ITS ---
Subjective Subjective Date of Service: 02/13/23 Reason For Visit: Bipolar disorder w/ psychosis Interim History: Patient seen and discussed. She reports doing well and offers no complaints today. She reflects on her stay and sees the improvement she has experienced over the stay. she reports the Li has helped stabilize her and her mood and sleep. She is encouraged by the switch from Xanax to Valium to get off the Xanax. She is thankful for the care she received. Sleep and appetite good. Mostly isolating to her room. Review of Systems Review of Systems Patient states that she has no acute medical complaints at this time Constitutional: Reports difficulty sleeping, Reports fatigue, Reports headache(s) and Reports lethargy Reports headache(s) Reports headache(s) Endocrine: Reports fatigue Mental Status Exam Mental Status Exam Narrative: Appearance: casually groomed, fair hygiene, jaw pain Behavior: guarded at first Psychomotor: no agitation or retardation noted Speech: clear, regular rate, not pressured, spontaneous TP: circumstantial. TC: focused on divorce and its ramification on her life and health. Mood: anxious Affect: congruent, dysphoric SI: denies HI: denies VH/AH: none Delusions: no delusional content noted or reported Insight/judgment: fair x 2. Memory/cog: alert, oriented x 3. grossly intact to conversational testing. Patient Appearance: Appropriate Patient Orientation: Person, Place, Time and Situation Level of Consciousness: Alert Patient Behavior: Appropriate, Talkative, Cooperative, Anxious, Fearful, Fatigued and Good Eye Contact Mood Description: Withdrawn, Depressed, Fearful, Anxious, Flat, Sad, Nervous and Apprehensive Affect Description: Flat Patient Cognition Impaired: No Ability to Follow Directions: Good Speech Pattern: Perseverating, Spontaneous Speech, Soft-Spoken and Pressured Memory Description: Intact Diagnostics Vital Signs (24Hr): Vital Signs - 24 hr 02/12/23 19:45 02/13/23 06:00 Temperature 97 F 98.2 F Pulse Rate 88 86 Respiratory Rate 18 16 Blood Pressure 128/81 149/86 H Pulse Oximetry 100 98 Oxygen Delivery Method Room Air Room Air BMI result Body Mass Index 27.5 Labs 02/10/23 08:30 Medications Medications Current Medications Acetaminophen (Acetaminophen 325 Mg Tablet) 650 mg PO Q6H PRN PRN Reason: Headache/Pain Mild Scale (1-3) Last Admin: 02/13/23 09:10 Dose: 650 mg Al Hydroxide/Mg Hydroxide (Magnesium Hydrox/Alum Hydrox 30 Ml Oral.Susp) 30 ml PO Q6H PRN PRN Reason: Heartburn/Nausea Last Admin: 02/02/23 20:19 Dose: 30 ml Amphetamine/Dextroamphetamine (Amphetamine Mixed Salts 10 Mg Tablet) 20 mg PO 1200 CHARLIE Last Admin: 02/12/23 11:00 Dose: 20 mg Amphetamine/Dextroamphetamine (Dextroamphetamine/Amphetamine Xr 10 Mg Cap.Er.24h) 30 mg PO DAILY CHARLIE Last Admin: 02/13/23 09:10 Dose: 30 mg Benzocaine (Benzocaine 20 % Oral Gel 9 Gm Tube) 1 appl MUCOUS MEM Q4H PRN; Protocol PRN Reason: gum pain Last Admin: 02/04/23 19:01 Dose: 1 appl Diazepam (Diazepam 5 Mg Tablet) 10 mg PO QID PRN PRN Reason: anxiety, agitation Last Admin: 02/13/23 09:10 Dose: 10 mg Diphenhydramine HCl (Diphenhydramine Hcl 25 Mg Capsule) 50 mg PO Q4H PRN PRN Reason: Itching Last Admin: 02/12/23 19:46 Dose: 50 mg Gabapentin (Gabapentin 300 Mg Capsule) 300 mg PO BID [facility] Last Admin: 02/13/23 09:11 Dose: 300 mg Hydrocortisone (Hydrocortisone 1 % Cream 28.35 Gm Tube) 1 appl TOPICAL BID PRN; Protocol PRN Reason: rash on legs Last Admin: 02/11/23 10:00 Dose: 1 appl [place] Carbonate ([place] Carbonate Er 450 Mg Tablet.Er) 900 mg PO BEDTIME [facility] Last Admin: 02/12/23 19:47 Dose: 900 mg Magnesium Hydroxide (Milk Of Magnesia 30 Ml Oral.Susp) 30 ml PO DAILY PRN PRN Reason: Constipation Olanzapine (Olanzapine 5 Mg Tablet) 5 mg PO Q4H PRN PRN Reason: psychosis, bryce, agitation Olanzapine (Olanzapine 10 Mg Tablet) 10 mg PO BID [facility] Last Admin: 02/13/23 09:11 Dose: 10 mg Ondansetron HCl (Ondansetron Odt 4 Mg Tab.Rapdis) 4 mg TRANSLINGU Q6H PRN PRN Reason: Nausea Last Admin: 02/04/23 19:41 Dose: 4 mg Propranolol HCl (Propranolol Hcl 10 Mg Tablet) 25 mg PO TID [facility]; Protocol Last Admin: 02/13/23 09:10 Dose: 25 mg Trazodone HCl (Trazodone Hcl 25 Mg Halftab) 25 mg PO BEDTIME MRX1 PRN PRN Reason: trouble sleeping Last Admin: 02/07/23 20:38 Dose: 25 mg Allergies Allergies Allergy/AdvReac Type Severity Reaction Status Date / Time gluten AdvReac Gastrointestinal Verified 01/13/23 23:29 Upset lorazepam [From Ativan] AdvReac Headache Verified 10/22/20 19:11 wheat AdvReac Gastrointestinal Verified 01/13/23 23:29 Upset Assessment & Plan Assessment & Plan (1) Bipolar 1 disorder, manic, mild: Status: Acute Code(s): F31.11 - Bipolar disorder, current episode manic without psychotic features, mild Assessment and Plan: pt denies this 01/29 Plan Mrs. Peralta is a 47 year-old woman with hx of Bipolar Disorder who self presented to [facility] ED reporting feeling tired, with nausea, not sleeping, more anxious. Pt was recently discharged from [facility] after 3 week admission. Pt presents with tangential speech, hyperverbal but not pressured. No SI/HI. No psychosis or delusional content noted or reported. Pt reports not sleeping well. We discussed risks, benefits and alternative treatment options. Pt reports her medications have been helpful including combination or stimulant and xanax. Pt not open to other medication options that may include a mood stabilizer even if less sedation options than depakote. She does not appear at imminent risk of harm to self or others at this point. PLAN 1. Admit to M5, CV 15 minutes checks for safety 2. continue lower dose of adderall- at this point pt reports she uses for physical fatigue. She has not slept in days so in agreement to reduce dose in order aid sleep. but explained that may worsen hypomania or bryce- which pt does not think she has. 3. Obtain collateral information 4. Aftercare plan 01/15: Continue current treatment plan. 01/16: Continue treatment plan unchanged. 01/17/23: Change Adderall dosing to 20 mg a.m. 30 mg noon Change Benadryl to 50 mg [id number] prn Discontinue Trazodone 01/20/23 Family meeting 01/23/23. 01/21/23 Increase Propranolol to 15 mg tid 01/23/23 Continue current regime. 01/24/23 Continue current regime and plan Message left to schedule peer review per [facility] request. 01/25: Continue current plan. 01/27/23: Continue current plan. 01/28 continue tx. 01/29 change xanax to diazepam for weekend- seems like adderall dose is high for someone with anxiety like this- and thought disorganziation? 01/30 jaw better with diazepam, pt more confused and disorganized today after several room shifts due to issues of other patients- thrown off quite a bit by this and didn't get sleep - 01/31/23- Pt declines change of medication treatment plan. Demands discharge, refuses to sign three day notice Possible Section 7. 02/02/23 TDN expires 02/03- Will plan to file Section [address] assessment of further care and treatment. 02/04/23 Continue Olanzapine Change Valium to qid prn vs scheduled Adderall XR 20 mg a.m. Adderall IR 10 mg noon Adderall IR 20 mg x 1 dose at 1500 today Change Zofran to q 6 hours prn 02/05/23 Patient continues to present with hypomania and some limited insight; however she is amenable to starting lithium. Patient reports reports hx of pancreatits, making lithium preferable choice over Depakote Agrees to starting lithium if she can have Adderall increased back to 4 more doses. Warp Placer feels this is a fair compromise as patient seems likely to be nefit from a mood stabilizer and has never been on lithium in the past and Adderall is only being increased 10 more mg increase per dose. Discussed case with Paige Manzanares who agrees with plan; leader writer reviewed kidney function from sending facility and within normal limits Increase Adderall XR to 20mg qpm Start [place] ER 600mg qhs Continue zyprexa for now with hopeful plan to taper and dc if lithium proves helpful 02/06 pt presents as hypomanic, though has been able to reasonably discuss medications and diagnosis. continue tx plan 02/07/23: Improved, organizing her tasks. [place] level 02/09. 02/08/23: [place] level 02/09. 02/10/23 Pt will attempt to make contact with her friend Swetha who is willing to advise her regarding finding an health care attorney to represent her in the upcoming court appointments. 02/11/21 Increase Inderal to 25 mg tid 02/12: Continue treatment plan 02/13: Continue treatment plan Reason for continued inpatient stay Substantial Risk for: harm to self, inability to function and rapid decompensation Time Spent With Patient Time: Total time managing care of this patient today ____ minutes.
[2023-02-13] MEDS: Amphetamine Mixed Salts 10 MG TABLET 20 MG PO (11:07)
[2023-02-13 19:15] VITALS: BP 113/81; PULSE 93; TEMP 36.6
[2023-02-13] MEDS: diphenhydrAMINE HCL 25 MG CAPSULE 50 MG PO (19:19)
[2023-02-13] MEDS: Lithium Carbonate ER 450 MG TABLET.ER 900 MG PO (19:22)
[2023-02-14] MEDS: Acetaminophen 325 MG TABLET 650 MG PO ×2 (08:18→18:57)
[2023-02-14] MEDS: Gabapentin 300 MG CAPSULE PO (08:19)
[2023-02-14] MEDS: Dextroamphetamine/Amphetamine XR 10 MG CAP.ER.24H 30 MG PO (08:19)
[2023-02-14] MEDS: OLANZapine 10 MG TABLET PO ×2 (08:19→21:30)
[2023-02-14] MEDS: diazePAM 5 MG TABLET 10 MG PO ×3 (08:19→18:57)
[2023-02-14 09:00] VITALS: BP 133/87; PULSE 84; RESP 16; TEMP 36.4; O2SAT 99
[2023-02-14 09:16] LABS: Lithium 0.67 mmol/L (0.60-1.20)
[2023-02-14 09:29] LABS: Anion Gap 9 (12-20); Blood Urea Nitrogen 8 mg/dL (9-16); Calcium 9.2 mg/dL (8.4-10.2); Carbon Dioxide 27 mmol/L (22-29); Chloride 107 mmol/L (96-108); Creatinine Clr Calc Pharmacy 127.1; Estimated Glomerular Filt Rate > 60; Glucose Random 92 mg/dL (60-115); Potassium 3.8 mmol/L (3.3-5.1); Sodium 139 mmol/L (135-145)
[2023-02-14 09:48] LABS: Thyroid Stimulating Hormone 1.41 uIU/mL (0.32-4.0)
[2023-02-14] MEDS: Propranolol HCL 10 MG TABLET 25 MG PO ×3 (10:48→21:30)
[2023-02-14] MEDS: Amphetamine Mixed Salts 10 MG TABLET 20 MG PO (11:00)
--- NOTE | 2023-02-14 13:18 | PC.NURSE ---
pt states she is expecting a letter from the probate court. mail technician called. nothing there yet.
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
[2023-02-14] MEDS: diphenhydrAMINE HCL 25 MG CAPSULE 50 MG PO (18:57)
[2023-02-14 21:15] VITALS: BP 122/68; PULSE 89; TEMP 36.2; O2SAT 99
[2023-02-14] MEDS: Lithium Carbonate ER 450 MG TABLET.ER 900 MG PO (21:33)
[2023-02-14] MEDS: Gabapentin 300 MG CAPSULE 600 MG PO (21:40)
[2023-02-15] MEDS: Folic Acid 1 MG TABLET PO (08:08)
[2023-02-15] MEDS: diazePAM 5 MG TABLET 10 MG PO ×3 (08:08→20:05)
[2023-02-15] MEDS: Propranolol HCL 10 MG TABLET 25 MG PO ×3 (08:09→20:05)
[2023-02-15] MEDS: Acetaminophen 325 MG TABLET 650 MG PO ×2 (08:09→19:05)
[2023-02-15] MEDS: OLANZapine 10 MG TABLET PO ×2 (08:09→20:05)
[2023-02-15] MEDS: Dextroamphetamine/Amphetamine XR 10 MG CAP.ER.24H 30 MG PO (08:09)
[2023-02-15 08:12] VITALS: BP 134/76; PULSE 91; RESP 16; TEMP 36.1; O2SAT 98
[2023-02-15 09:03] LABS: MANUAL DIFF FLAG NO
[2023-02-15 09:05] LABS: Basophils Absolute Auto 0.1 X10*3/uL (0.0-0.2); Basophils Percent Auto 0.8 % (0-2); Eosinophils Absolute Auto 0.5 X10*3/uL (0.0-0.4); Eosinophils Percent Auto 4.1 % (0-4); Hematocrit 35.8 % (37.0-47.0); Hemoglobin 10.9 g/dl (12.0-16.0); Imm Gran Abs Auto 0.04 X10*3/uL (0.00-0.03); Imm Gran Pct Auto 0.4 % (0.0-0.4); Lymphocytes Absolute Auto 1.9 X10*3/uL (1.2-4.9); Lymphocytes Percent Auto 16.4 % (20-40); Mean Corpuscular HGB Conc 30.4 g/dl (31.0-35.0); Mean Corpuscular Hemoglobin 25.6 pg (27.0-33.0); Mean Platelet Volume 9.3 fL (9.4-12.3); Monocytes Absolute Auto 0.7 X10*3/uL (0.1-1.2); Monocytes Percent Auto 6.2 % (2-11); Neutrophils Absolute Auto 8.2 x10*3/uL (2.0-8.3); Neutrophils Percent Auto 72.1 % (45-73); Platelet Count 527 X10*3/uL (160-400); Red Blood Count 4.26 X10*6/uL (4.20-5.50); Red Cell Distribution Width 17.2 % (11.0-16.0); White Blood Count 11.3 X10*3/uL (4.8-10.8)
[2023-02-15] MEDS: Amphetamine Mixed Salts 10 MG TABLET 20 MG PO (11:01)
[2023-02-15] MEDS: Hydrocortisone 1 % Cream 28.35 GM TUBE 1 APPL TOPICAL (12:38)
--- NOTE | 2023-02-15 16:55 | HO.PSYCHPN ---
Subjective Subjective Date of Service: 02/15/23 Reason For Visit: Bipolar disorder w/ psychosis Subjective Notes: Section 7 Healthcare Proxy: No Guardianship: No Medical Problems Affecting Mental Status: No Interim History: Will discharge 02/16 to [facility]. Meds will be filled with [facility]. Pt can expect to stay 5 days, possibly more with insurance review. Pt will need to remain at [facility]. Staff will take her out. She will be able to go to court and appointments and they will support her in staying in contact with her court team. Pt is satisfied with this plan, ready to move forward and face upcoming court for divorce finalization and other matters before the court. Medication Compliance: Yes Side effects from medications: No Attending Groups: Intermittent Review of Systems Acute medical concerns: No Medical Review of Systems: unchanged Mental Status Exam Mental Status Exam Patient Appearance: Appropriate Patient Orientation: Person, Place, Time and Situation Level of Consciousness: Alert Patient Behavior: Appropriate, Talkative, Cooperative and Good Eye Contact Mood Description: Calm, Appropriate and Apprehensive Affect Description: Appropriate and Apprehensive Patient Cognition Impaired: No Ability to Follow Directions: Good Speech Pattern: Spontaneous Speech and Soft-Spoken Memory Description: Intact Hallucinations: None Delusions: Not Present Perceptual Disturbances: Depersonalization and Derealization Thought Process: Intact and Goal Oriented Thought Content: positive for [place], positive for Circumstantial, positive for Goal Oriented, positive for Logical, positive for Suicidal Ideation (denies) and positive for Homicidal Ideation (denies) Depressive Symptoms: Increased Anxiety and Thoughts of /Suicide (denies) Judgement: Fair Diagnostics Vital Signs (24Hr): Vital Signs - 24 hr 02/14/23 21:15 02/15/23 08:12 Temperature 97.2 F 96.9 F Pulse Rate 89 91 Respiratory Rate 16 Blood Pressure 122/68 134/76 Pulse Oximetry 99 98 Oxygen Delivery Method Room Air Room Air BMI result Body Mass Index 27.5 Labs 02/15/23 08:46 02/14/23 08:10 Labs: Laboratory Results - last 48 hr 02/14/23 02/14/23 02/15/23 08:10 08:10 08:46 WBC 11.3 H RBC 4.26 Hgb 10.9 L Hct 35.8 L MCV 84.0 MCH 25.6 L MCHC 30.4 L RDW 17.2 H Plt Count 527 H MPV 9.3 L Immature Gran % (Auto) 0.4 Neut % (Auto) 72.1 Lymph % (Auto) 16.4 L [place] % (Auto) 6.2 Eos % (Auto) 4.1 H Baso % (Auto) 0.8 Lymph # (Auto) 1.9 [place] # (Auto) 0.7 Eos # (Auto) 0.5 H Baso # (Auto) 0.1 Abs Immat Gran (auto) 0.04 H Absolute Neuts (auto) 8.2 Absolute Nucleated RBC 0.000 Nucleated RBC % (auto) 0.0 Sodium 139 Potassium 3.8 Chloride 107 Carbon Dioxide 27 Anion Gap 9 L BUN 8 L Creatinine 0.69 Estim Creat Clear Calc 127.1 Estimated GFR > 60 Random Glucose 92 Calcium 9.2 TSH 1.41 [place] 0.67 Medications Medications Current Medications Acetaminophen (Acetaminophen 325 Mg Tablet) 650 mg PO Q6H PRN PRN Reason: Headache/Pain Mild Scale (1-3) Last Admin: 02/15/23 08:09 Dose: 650 mg Al Hydroxide/Mg Hydroxide (Magnesium Hydrox/Alum Hydrox 30 Ml Oral.Susp) 30 ml PO Q6H PRN PRN Reason: Heartburn/Nausea Last Admin: 02/02/23 20:19 Dose: 30 ml Amphetamine/Dextroamphetamine (Amphetamine Mixed Salts 10 Mg Tablet) 20 mg PO 1200 [facility] Last Admin: 02/15/23 11:01 Dose: 20 mg Amphetamine/Dextroamphetamine (Dextroamphetamine/Amphetamine Xr 10 Mg Cap.Er.24h) 30 mg PO DAILY [facility] Last Admin: 02/15/23 08:09 Dose: 30 mg Benzocaine (Benzocaine 20 % Oral Gel 9 Gm Tube) 1 appl MUCOUS MEM Q4H PRN; Protocol PRN Reason: gum pain Last Admin: 02/04/23 19:01 Dose: 1 appl Diazepam (Diazepam 5 Mg Tablet) 10 mg PO QID PRN PRN Reason: anxiety, agitation Last Admin: 02/15/23 14:25 Dose: 10 mg Diphenhydramine HCl (Diphenhydramine Hcl 25 Mg Capsule) 50 mg PO Q4H PRN PRN Reason: Itching Last Admin: 02/14/23 18:57 Dose: 50 mg Folic Acid (Folic Acid 1 Mg Tablet) 1 mg PO DAILY [facility] Last Admin: 02/15/23 08:08 Dose: 1 mg Gabapentin (Gabapentin 300 Mg Capsule) 600 mg PO BEDTIME [facility] Last Admin: 02/14/23 21:40 Dose: 600 mg Hydrocortisone (Hydrocortisone 1 % Cream 28.35 Gm Tube) 1 appl TOPICAL BID PRN; Protocol PRN Reason: rash on legs Last Admin: 02/15/23 12:38 Dose: 1 appl [place] Carbonate ([place] Carbonate Er 450 Mg Tablet.Er) 900 mg PO BEDTIME [facility] Last Admin: 02/14/23 21:33 Dose: 900 mg Magnesium Hydroxide (Milk Of Magnesia 30 Ml Oral.Susp) 30 ml PO DAILY PRN PRN Reason: Constipation Olanzapine (Olanzapine 5 Mg Tablet) 5 mg PO Q4H PRN PRN Reason: psychosis, bryce, agitation Olanzapine (Olanzapine 10 Mg Tablet) 10 mg PO BID [facility] Last Admin: 02/15/23 08:09 Dose: 10 mg Ondansetron HCl (Ondansetron Odt 4 Mg Tab.Rapdis) 4 mg TRANSLINGU Q6H PRN PRN Reason: Nausea Last Admin: 02/04/23 19:41 Dose: 4 mg Propranolol HCl (Propranolol Hcl 10 Mg Tablet) 25 mg PO TID [facility]LIE; Protocol Last Admin: 02/15/23 14:22 Dose: 25 mg Trazodone HCl (Trazodone Hcl 25 Mg Halftab) 25 mg PO BEDTIME MRX1 PRN PRN Reason: trouble sleeping Last Admin: 02/07/23 20:38 Dose: 25 mg Allergies Allergies Allergy/AdvReac Type Severity Reaction Status Date / Time gluten AdvReac Gastrointestinal Verified 01/13/23 23:29 Upset lorazepam [From Ativan] AdvReac Headache Verified 10/22/20 19:11 wheat AdvReac Gastrointestinal Verified 01/13/23 23:29 Upset Assessment & Plan Assessment & Plan (1) Bipolar 1 disorder, manic, mild: Status: Acute Code(s): F31.11 - Bipolar disorder, current episode manic without psychotic features, mild Assessment and Plan: pt denies this 01/29 Plan Mrs. Peralta is a 47 year-old woman with hx of Bipolar Disorder who self presented to [facility] ED reporting feeling tired, with nausea, not sleeping, more anxious. Pt was recently discharged from [facility] after 3 week admission. Pt presents with tangential speech, hyperverbal but not pressured. No SI/HI. No psychosis or delusional content noted or reported. Pt reports not sleeping well. We discussed risks, benefits and alternative treatment options. Pt reports her medications have been helpful including combination or stimulant and xanax. Pt not open to other medication options that may include a mood stabilizer even if less sedation options than depakote. She does not appear at imminent risk of harm to self or others at this point. PLAN 1. Admit to M5, CV 15 minutes checks for safety 2. continue lower dose of adderall- at this point pt reports she uses for physical fatigue. She has not slept in days so in agreement to reduce dose in order aid sleep. but explained that may worsen hypomania or bryce- which pt does not think she has. 3. Obtain collateral information 4. Aftercare plan 01/15: Continue current treatment plan. 01/16: Continue treatment plan unchanged. 01/17/23: Change Adderall dosing to 20 mg a.m. 30 mg noon Change Benadryl to 50 mg [id number] prn Discontinue Trazodone 01/20/23 Family meeting 01/23/23. 01/21/23 Increase Propranolol to 15 mg tid 01/23/23 Continue current regime. 01/24/23 Continue current regime and plan Message left to schedule peer review per [facility] request. 01/25: Continue current plan. 01/27/23: Continue current plan. 01/28 continue tx. 01/29 change xanax to diazepam for weekend- seems like adderall dose is high for someone with anxiety like this- and thought disorganziation? 01/30 jaw better with diazepam, pt more confused and disorganized today after several room shifts due to issues of other patients- thrown off quite a bit by this and didn't get sleep - 01/31/23- Pt declines change of medication treatment plan. Demands discharge, refuses to sign three day notice Possible Section 7. 02/02/23 TDN expires 02/03- Will plan to file Section [address] assessment of further care and treatment. 02/04/23 Continue Olanzapine Change Valium to qid prn vs scheduled Adderall XR 20 mg a.m. Adderall IR 10 mg noon Adderall IR 20 mg x 1 dose at 1500 today Change Zofran to q 6 hours prn 02/05/23 Patient continues to present with hypomania and some limited insight; however she is amenable to starting lithium. Patient reports reports hx of pancreatits, making lithium preferable choice over Depakote Agrees to starting lithium if she can have Adderall increased back to 4 more doses. Tire Beader Maker feels this is a fair compromise as patient seems likely to benefit from a mood stabilizer and has never been on lithium in the past and Adderall is only being increased 10 more mg increase per dose. Discussed case with Paige Manzanares who agrees with plan; junior underwriter reviewed kidney function from sending facility and within normal limits Increase Adderall XR to 20mg qpm Start [place] ER 600mg qhs Continue zyprexa for now with hopeful plan to taper and dc if lithium proves helpful 02/06 pt presents as hypomanic, though has been able to reasonably discuss medications and diagnosis. continue tx plan 02/07/23: Improved, organizing her tasks. [place] level 02/09. /: [place] level 02/09. 02/10/23 Pt will attempt to make contact with her friend Swetha who is willing to advise her regarding finding an patent attorney to represent her in the upcoming court appointments. 02/11/21 Increase Inderal to 25 mg tid 02/12: Continue treatment plan 02/13: Continue treatment plan 02/14/23: [place] Level 0.67 Discharge Planning. 02/15/23: Discharge 02/16 to [facility] Patient educated on: medication risk/benefits and therapeutic strategies Informed Consent: understands Reason for continued inpatient stay Substantial Risk for: stable for discharge Time Spent With Patient Time: Total time managing care of this patient today ____ minutes.
[2023-02-15 18:00] VITALS: BP 129/78; PULSE 88; RESP 16; TEMP 36.6; O2SAT 98
[2023-02-15] MEDS: diphenhydrAMINE HCL 25 MG CAPSULE 50 MG PO (19:05)
[2023-02-15] MEDS: Lithium Carbonate ER 450 MG TABLET.ER 900 MG PO (20:04)
[2023-02-15] MEDS: Gabapentin 300 MG CAPSULE 600 MG PO (20:05)
[2023-02-16 08:00] VITALS: BP 134/91; PULSE 101; RESP 16; TEMP 36.4; O2SAT 98
[2023-02-16] MEDS: Folic Acid 1 MG TABLET PO (08:11)
[2023-02-16] MEDS: Acetaminophen 325 MG TABLET 650 MG PO (08:11)
[2023-02-16] MEDS: OLANZapine 10 MG TABLET PO (08:11)
[2023-02-16] MEDS: diazePAM 5 MG TABLET 10 MG PO (08:12)
[2023-02-16] MEDS: Propranolol HCL 10 MG TABLET 25 MG PO (08:12)
[2023-02-16] MEDS: Dextroamphetamine/Amphetamine XR 10 MG CAP.ER.24H 30 MG PO (08:13)
[2023-02-16] MEDS: Amphetamine Mixed Salts 10 MG TABLET 20 MG PO (11:03)
--- NOTE | 2023-02-16 12:53 | PM.PSYDC ---
DS: Providers Provider Date of Service: 02/16/23 Date of admission: 01/13/23 18:27 Date of discharge: 02/16/23 Primary care physician: Gibran Levi NP Admitting clinician: Alisha Solis Attending physician on admission: Cheko Ferguson Consults: 01/13/23 18:42 Consult to Hospitalist Routine Comment: Consulting Provider: Hospitalist Reason For Exam: Transfer from [facility] Attending physician on discharge: Cheko Ferguson Discharging clinician: Paige Mccallum DS: Diagnosis Discharge Diagnosis (1) Acute stress disorder: Status: Acute DS: Medications Discharge Medications Home Medications: Previous Rx's Medication Instructions Recorded acetaminophen 325 mg tablet 650 mg PO Q6H PRN Headache/Pain 02/15/23 Mild Scale (1-3) #60 tabs diphenhydramine HCl 25 mg capsule 50 mg PO Q4H PRN Itching #60 caps 02/15/23 folic acid 1 mg tablet 1 mg PO DAILY #30 tabs 02/15/23 gabapentin 300 mg capsule 600 mg PO BEDTIME #21 caps 02/15/23 hydrocortisone 1 % topical cream 1 appl topical BID PRN rash on 02/15/23 legs #1 applicator levothyroxine 75 mcg tablet 75 mcg PO DAILY #30 tabs 02/15/23 lithium carbonate 450 mg 900 mg PO BEDTIME #42 tabs 02/15/23 tablet,extended release olanzapine 10 mg tablet 10 mg PO BID #42 tabs 02/15/23 propranolol 10 mg tablet 25 mg PO TID #63 tabs 02/15/23 trazodone 50 mg tablet 25 mg PO BEDTIME PRN insomnia #21 02/15/23 tabs dextroamphetamine-amphetamine 20 20 mg PO 1200 #21 tabs 02/16/23 mg tablet (Adderall) dextroamphetamine-amphetamine ER 30 mg PO QAM #21 caps 02/16/23 30 mg 24hr capsule,extend release (Adderall XR) diazepam 10 mg tablet 10 mg PO QID PRN anxiety #112 tabs 02/16/23 Mental Status Exam Mental Status Exam Patient Appearance: Appropriate Patient Orientation: Person, Place, Time and Situation Level of Consciousness: Alert Patient Behavior: Appropriate, Talkative, Cooperative and Good Eye Contact Mood Description: Calm, Appropriate and Apprehensive Affect Description: Appropriate and Apprehensive Patient Cognition Impaired: No Ability to Follow Directions: Good Speech Pattern: Spontaneous Speech and Soft-Spoken Memory Description: Intact Hallucinations: None Delusions: Not Present Perceptual Disturbances: Depersonalization and Derealization Thought Process: Intact and Goal Oriented Thought Content: positive for [place], positive for Circumstantial, positive for Goal Oriented, positive for Logical, positive for Suicidal Ideation (denies) and positive for Homicidal Ideation (denies) Depressive Symptoms: Increased Anxiety and Thoughts of /Suicide (denies) Judgement: Fair Data Data Completed and Pending Completed studies during hospitalization [Text1]: 02/10/23 02/10/23 02/14/23 08:30 08:30 08:10 WBC RBC Hgb Hct MCV MCH MCHC RDW Plt Count MPV Immature Gran % (Auto) Neut % (Auto) Lymph % (Auto) [place] % (Auto) Eos % (Auto) Baso % (Auto) Lymph # (Auto) [place] # (Auto) Eos # (Auto) Baso # (Auto) Abs Immat Gran (auto) Absolute Neuts (auto) Absolute Nucleated RBC Nucleated RBC % (auto) Sodium 139 Potassium 3.8 Chloride 107 Carbon Dioxide 27 Anion Gap 9 L BUN 7 L 8 L Creatinine 0.76 0.69 Estim Creat Clear Calc 115.3 127.1 Estimated GFR > 60 > 60 Random Glucose 92 Calcium 9.2 TSH 1.58 1.41 [place] 0.60 02/14/23 02/15/23 08:10 08:46 WBC 11.3 H RBC 4.26 Hgb 10.9 L Hct 35.8 L MCV 84.0 MCH 25.6 L MCHC 30.4 L RDW 17.2 H Plt Count 527 H MPV 9.3 L Immature Gran % (Auto) 0.4 Neut % (Auto) 72.1 Lymph % (Auto) 16.4 L [place] % (Auto) 6.2 Eos % (Auto) 4.1 H Baso % (Auto) 0.8 Lymph # (Auto) 1.9 [place] # (Auto) 0.7 Eos # (Auto) 0.5 H Baso # (Auto) 0.1 Abs Immat Gran (auto) 0.04 H Absolute Neuts (auto) 8.2 Absolute Nucleated RBC 0.000 Nucleated RBC % (auto) 0.0 Sodium Potassium Chloride Carbon Dioxide Anion Gap BUN Creatinine Estim Creat Clear Calc Estimated GFR Random Glucose Calcium TSH [place] 0.67 DS: Summary Hospital Course Hospital Course: 47 yo female, history of anxiety, PTSD, mood dysregulation, Lyme Disease, Celiac Disease, Hypothyroidism, EBV, Mast Cell Activation Disorder presents with an increase in anxiety, nausea. Reports a difficult, complex divorce process, hopefully to end court process mid February. Reports being financially unable to afford her providers due to withholding funds and as a result having no medical providers at this time. Pt admitted to re-establish regime, maintain stability and prevent decompensation. Regime of Adderall, IR 20 mg XR 30 mg (taken since adolesence), Xanax (taken for ~2 years), Propranolol re-established. Propranolol increased to 25 mg tid and tolerated during pt's admission. Xanax was discontinued, Valium initiated for improved sx mgt and mgt of TMJ sx. Gabapentin added as well. Pt did well on re-established regime with above changes. She did not respond well when achieved temporary custody of their children during her stay, her contract attorney received court permission to terminate from her case and the court ordered an independent mental health evaluation for a future date. She identified a few supports, a friend and her maternal aunt, however, she reported feeling her parents were not a support and she was essentially alone in attempting to keep her family (2 daughters, ages 7 and 4) intact in moving ahead in the future. As a result, she decompensated with lability and distractability. Section Seven was filed, however court was not needed as she was able to recompensate and work with the team. Olanzapine and [place] were initiated with positive effect. She was able to recompensate, stating that she felt this regime was more effective with symptom mgt than her previous regime. She plans admission to respite and to attend court dates in February and attempt to hire an contract attorney to continue her representation during her divorce. She hopes to return to her previous out patient team when financial matters are settled in the divorce process. Time spent discussing smoking cessation with patient: 3 to 10 minutes Status at Discharge Functional status at discharge: independent ambulation Overall status at discharge: patient is back to baseline Time Spent with Patient Time attestation: Total time managing care of this patient today ____ minutes. Time spent: Greater than 30 minutes Discharge Plan Discharge Anticipated Discharge Date/Time: 02/16/23 12:49 Patient Disposition: Xfer to Respite Facility Discharge Diagnosis: PTSD/ASD Anxiety ADHD history Referrals: PCP: JATIN Mcarthur ([facility]) [Other] - 02/25/23 4:00 pm (Appointment is in person at the office ) Clinical Stabilization Unit Placement: [facility] [Other] - 1 Week (This placement is for an average of 5 to 7 days) Paige Mccallum APRN [Nurse Practitioner] - 1 Week ([phone]) Discharge Medications: New acetaminophen 325 mg Tablet 650 mg PO Q6H PRN (Reason: Headache/Pain Mild Scale (1-3)) Qty: 60 0RF olanzapine 10 mg Tablet 10 mg PO BID Qty: 42 0RF lithium carbonate 450 mg Tablet Extended Release 900 mg PO BEDTIME Qty: 42 0RF propranolol 10 mg Tablet 25 mg PO TID Qty: 63 0RF Protocol: Hold for SBP/HR < HOLD for SBP < : 90 HOLD for HR < : 60 hydrocortisone 1 % Cream 1 appl topical BID PRN (Reason: rash on legs) Qty: 1 0RF Protocol: Apply to: Apply to: legs, affected areas diphenhydramine HCl 25 mg Capsule 50 mg PO Q4H PRN (Reason: Itching) Qty: 60 0RF gabapentin 300 mg Capsule 600 mg PO BEDTIME Qty: 21 0RF folic acid 1 mg Tablet 1 mg PO DAILY Qty: 30 0RF trazodone 50 mg tablet 25 mg PO BEDTIME PRN (Reason: insomnia) Qty: 21 0RF diazepam 10 mg tablet 10 mg PO QID PRN (Reason: anxiety) Qty: 112 0RF dextroamphetamine-amphetamine [Adderall] 20 mg tablet 20 mg PO 1200 Qty: 21 0RF Rx Instructions: Partial Fill upon patient request. dextroamphetamine-amphetamine [Adderall XR] 30 mg capsule,extended release 24hr 30 mg PO QAM Qty: 21 0RF Rx Instructions: Partial Fill upon patient request. Continued levothyroxine 75 mcg Tablet 75 mcg PO DAILY Qty: 30 0RF Discontinued alprazolam [Xanax] 1 mg Tablet 1 mg PO TID PRN (Reason: Anxiety) quetiapine 100 mg Tablet 100 mg PO BEDTIME propranolol 10 mg Tablet 10 mg PO TID dextroamphetamine-amphetamine [Adderall XR] 20 mg Capsule,Extended Release 24hr 20 mg PO DAILY dextroamphetamine-amphetamine 20 mg Tablet 20 mg PO DAILY Vyvanse 50 mg Capsule 50 mg PO DAILY clonazepam 1 mg Tablet 1 mg PO TID gabapentin 300 mg Capsule 300 mg PO TID sertraline [Zoloft] 25 mg Tablet 25 mg PO DAILY amphetamine 10 mg Tablet, Ir - Er, Biphasic 24hr See Rx Instructions .ROUTE .COMPLEX Rx Instructions: 30 mg orally at 1400 Discharge Orders: Discharge Order (Routine); Ordered 02/16/23 Ordered By: Paige Mccallum Diet: Advance to usual diet Activity on Discharge: As tolerated Stand Alone Forms: Patient Portal Discharge page, Community Support Care Plan Goals: Mood and behavioral stabilization Health Concerns: Mood and behavioral stabilization Plan of Treatment: Attend scheduled appointments Take medications as directed Assessment: Pt interviewed prior to discharge and found to be fully oriented and without SI/HI. Pt has insight and demonstrates good judgment in terms of wanting to pursue treatment. Pt is not in imminent risk of harm to self or others and has a safety plan that includes presenting to the closest ER or calling 911 if feeling unsafe Pt has been observed closely by nursing and unit staff throughout admission. Pt has not engaged in any behaviors that suggest dangerousness to self or others and has demonstrated appropriate behaviors and impulse control. Discharge Date/Time: 02/16/23 13:14
--- NOTE | 2023-02-25 15:41 | P.EN_ITS ---
Documented by User: Paige Mccallum APRN 02/25/23 15:41 Event Note Date of Service: 02/25/23 Event Note: SHIPPING ROOM SUPERVISOR [facility] called for Gabapentin refill. Sent to [facility] per their request. Time Spent With Patient Time: Total time managing care of this patient today ____ minutes. Documented by User: Cheko Ferguson MD 02/27/23 14:33 Event Note Date of Service: 02/27/23
--- NOTE | 2023-02-25 15:41 | PM.EVENT ---
Documented by User: Paige Mccallum APRN 02/25/23 15:41 Event Note Date of Service: 02/25/23 Event Note: AIRFRAME AND POWERPLANT MECHANIC [facility] called for Gabapentin refill. Sent to [facility] per their request. Time Spent With Patient Time: Total time managing care of this patient today ____ minutes. Documented by User: Cheko Ferguson MD 02/27/23 14:33 Event Note Date of Service: 02/27/23
--- NOTE | 2023-03-07 10:42 | HO.OPPROGNO ---
Subjective Subjective Date of Service: 03/07/23 Reason For Visit: PTSD Interim History: Pt to appt today with request for refills. Reports she is well, proceeding with divorce, next court date 03/08. 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 Pt is working with parents, aunt friends and extended family. She reports custody of her children has returned to her Discussed regime, she reports stability. PCP will be assuming her care in March, and will take over medications. Medication Compliance: Yes Side effects from medications: No Review of Systems Acute medical concerns: No Medical Review of Systems: unchanged Review of Systems Review of Systems Yes all other systems are reviewed and are negative Mental Status Exam Mental Status Exam Patient Appearance: Appropriate Patient Orientation: Person, Place, Time and Situation Level of Consciousness: Alert Patient Behavior: Appropriate, Talkative, Cooperative and Good Eye Contact Mood Description: Appropriate Affect Description: Appropriate Patient Cognition Impaired: No Ability to Follow Directions: Good Speech Pattern: Spontaneous Speech Memory Description: Intact Hallucinations: None Delusions: Not Present Thought Process: Intact and Goal Oriented Thought Content: positive for Intact and positive for Goal Oriented Judgement: Good Diagnostics Vital Signs (24Hr): BMI result Body Mass Index 27.5 Labs 02/15/23 08:46 02/14/23 08:10 Discharge Plan Discharge Anticipated Discharge Date/Time: 02/16/23 12:49 Patient Disposition: Xfer to Respite Facility Discharge Diagnosis: PTSD/ASD Anxiety ADHD history Referrals: PCP: JATIN Mcarthur ([facility]) [Other] - 02/25/23 4:00 pm (Appointment is in person at the office ) Clinical Stabilization Unit Placement: [facility]UC[facility] [Other] - 1 Week (This placement is for an average of 5 to 7 days) Paige Mccallum APRN [Nurse Practitioner] - 1 Week ([phone]) Discharge Medications: New acetaminophen 325 mg Tablet 650 mg PO Q6H PRN (Reason: Headache/Pain Mild Scale (1-3)) Qty: 60 0RF olanzapine 10 mg Tablet 10 mg PO BID Qty: 42 0RF lithium carbonate 450 mg Tablet Extended Release 900 mg PO BEDTIME Qty: 42 0RF propranolol 10 mg Tablet 25 mg PO TID Qty: 63 0RF Protocol: Hold for SBP/HR < HOLD for SBP < : 90 HOLD for HR < : 60 hydrocortisone 1 % Cream 1 appl topical BID PRN (Reason: rash on legs) Qty: 1 0RF Protocol: Apply to: Apply to: legs, affected areas diphenhydramine HCl 25 mg Capsule 50 mg PO Q4H PRN (Reason: Itching) Qty: 60 0RF gabapentin 300 mg Capsule 600 mg PO BEDTIME Qty: 21 0RF folic acid 1 mg Tablet 1 mg PO DAILY Qty: 30 0RF trazodone 50 mg tablet 25 mg PO BEDTIME PRN (Reason: insomnia) Qty: 21 0RF diazepam 10 mg tablet 10 mg PO QID PRN (Reason: anxiety) Qty: 112 0RF dextroamphetamine-amphetamine [Adderall] 20 mg tablet 20 mg PO 1200 Qty: 21 0RF Rx Instructions: Partial Fill upon patient request. dextroamphetamine-amphetamine [Adderall XR] 30 mg capsule,extended release 24hr 30 mg PO QAM Qty: 21 0RF Rx Instructions: Partial Fill upon patient request. gabapentin 600 mg tablet 600 mg PO BEDTIME Qty: 15 1RF acetaminophen [Tylenol] 325 mg capsule 650 mg PO QID PRN (Reason: pain) Qty: 240 0RF diphenhydramine HCl [Benadryl] 25 mg capsule 50 mg PO BEDTIME PRN (Reason: sleep) Qty: 60 0RF dextroamphetamine-amphetamine [Adderall XR] 30 mg capsule,extended release 24hr 30 mg PO QAM Qty: 30 0RF Rx Instructions: Partial Fill upon patient request. dextroamphetamine-amphetamine [Adderall] 20 mg tablet 20 mg PO .noon Qty: 30 0RF Rx Instructions: Partial Fill upon patient request. diazepam [Valium] 10 mg tablet 10 mg PO QID PRN (Reason: anxiety) Qty: 28 3RF folic acid 1 mg tablet 1 mg PO DAILY Qty: 30 0RF gabapentin 600 mg tablet 600 mg PO BEDTIME Qty: 30 0RF hydrocortisone 1 % cream 1 appl topical BID PRN (Reason: itching) Qty: 28.4 0RF lithium carbonate 450 mg tablet extended release 900 mg PO BEDTIME Qty: 60 0RF olanzapine 10 mg tablet 10 mg PO BID Qty: 60 0RF propranolol 20 mg tablet 20 mg PO TID Qty: 90 0RF Rx Instructions: 25 mg three times per day. propranolol 10 mg tablet 5 mg PO TID Qty: 55 0RF Rx Instructions: 25 mg three times per day. trazodone 50 mg tablet 50 mg PO BEDTIME PRN (Reason: sleep) Qty: 30 0RF levothyroxine 75 mcg capsule 75 mcg PO DAILY Qty: 30 0RF Continued levothyroxine 75 mcg Tablet 75 mcg PO DAILY Qty: 30 0RF Discontinued alprazolam [Xanax] 1 mg Tablet 1 mg PO TID PRN (Reason: Anxiety) quetiapine 100 mg Tablet 100 mg PO BEDTIME propranolol 10 mg Tablet 10 mg PO TID dextroamphetamine-amphetamine [Adderall XR] 20 mg Capsule,Extended Release 24hr 20 mg PO DAILY dextroamphetamine-amphetamine 20 mg Tablet 20 mg PO DAILY Vyvanse 50 mg Capsule 50 mg PO DAILY clonazepam 1 mg Tablet 1 mg PO TID gabapentin 300 mg Capsule 300 mg PO TID sertraline [Zoloft] 25 mg Tablet 25 mg PO DAILY amphetamine 10 mg Tablet, Ir - Er, Biphasic 24hr See Rx Instructions .ROUTE .COMPLEX Rx Instructions: 30 mg orally at 1400 Discharge Orders: Discharge Order (Routine); Ordered 02/16/23 Ordered By: Paige Mccallum Diet: Advance to usual diet Activity on Discharge: As tolerated Stand Alone Forms: Patient Portal Discharge page, Community Support Care Plan Goals: Mood and behavioral stabilization Health Concerns: Mood and behavioral stabilization Plan of Treatment: Attend scheduled appointments Take medications as directed Assessment: Pt interviewed prior to discharge and found to be fully oriented and without SI/HI. Pt has insight and demonstrates good judgment in terms of wanting to pursue treatment. Pt is not in imminent risk of harm to self or others and has a safety plan that includes presenting to the closest ER or calling 911 if feeling unsafe Pt has been observed closely by nursing and unit staff throughout admission. Pt has not engaged in any behaviors that suggest dangerousness to self or others and has demonstrated appropriate behaviors and impulse control. Discharge Date/Time: 02/16/23 13:14 Assessment & Plan Assessment & Plan (1) Acute stress disorder: Status: Acute Code(s): F43.0 - Acute stress reaction (2) PTSD (post-traumatic stress disorder): Status: Acute Code(s): F43.10 - Post-traumatic stress disorder, unspecified Plan Continue current regime Refills sent to [facility] Pt will call/return as needed She will transfer meds to PCP in March Patient educated on: medication risk/benefits and therapeutic strategies Informed Consent: understands Reason for contiued therapy Substantial Risk for: stable for discharge Total time managing care of this patient today ____ minutes.
== END 2023-02-16 13:14 | DRG 756 ==
PROVIDERS: Admitting Provider Psychiatry & Neurology Psychiatry; PCP Nurse Practitioner Family; Visit Provider Clinical Nurse Specialist Psychiatric/Mental Health, Adult
DX: F43.0 Acute stress reaction (principal); D89.40 Mast cell activation, unspecified; F31.11 Bipolar disorder, current episode manic without psychotic features, mild; E03.9 Hypothyroidism, unspecified; F41.9 Anxiety disorder, unspecified; K90.0 Celiac disease; F90.9 Attention-deficit hyperactivity disorder, unspecified type; F43.10 Post-traumatic stress disorder, unspecified; Z79.890 Hormone replacement therapy; Z79.899 Other long term (current) drug therapy
CPT/HCPCS: 36415; 80048; 80061; 80178; 82565; 82607; 82746; 83036; 83735; 84439; 84443; 84520; 85025; 93005

== ENCOUNTER 2023-01-13 18:27 | Outpatient (BNV) | payer MEDICAID, SELFPAY | END 2023-01-31 06:08 | PROVIDERS: Admitting Provider Psychiatry & Neurology Psychiatry; PCP Nurse Practitioner Family; Visit Provider Internal Medicine Cardiovascular Disease | DX: R07.9 Chest pain, unspecified (principal) | CPT/HCPCS: 93010 ==

== ENCOUNTER → 2023-01-13 18:27 | Outpatient (BNV) | payer OTHER, SELFPAY | PROVIDERS: Admitting Provider Psychiatry & Neurology Psychiatry; PCP Nurse Practitioner Family; Visit Provider Psychiatry & Neurology Psychiatry | DX: F43.0 Acute stress reaction (principal); F43.10 Post-traumatic stress disorder, unspecified | CPT/HCPCS: 99213; 99231; 99232; 99233; 99499 ==

== ENCOUNTER 2023-03-23 09:31 | Emergency (ER) | payer MEDICAID, SELFPAY ==
--- NOTE | ~2023-03-23 | XR_ITS ---
EXAMINATION: XR CHEST CLINICAL INFORMATION: Shortness of breath. COMPARISON: None available. TECHNIQUE: 2 views of the chest were obtained. FINDINGS: No significant abnormality is noted involving the heart, lungs, mediastinum, bony thorax or soft tissues. XR/XR chest 2V IMPRESSION: No acute cardiopulmonary process.
[2023-03-23 09:33] VITALS: BP 143/87; PULSE 100; RESP 19; TEMP 37.2; O2SAT 98; BMI 29.2
--- NOTE | 2023-03-23 09:45 | ED.URI ---
HPI - URI/Sore Throat General Chief Complaint: Upper Respiratory Symptoms Stated Complaint: Diff Breathing Time Seen by Provider: 03/23/23 09:45 Source: patient Mode of arrival: ambulatory Limitations: no limitations History of Present Illness HPI Narrative: 47 yo female with history of PTSD, anxiety, bipolar disorder, chronic fatigue syndrome, chronic lyme disease here with complaints of 4-5 days of SOB, fatigue, generalized body pain. Patient reports chronic fatigue and body pain. Shortness of breath at rest and with exertion with chest tightness. No cough, uri symptoms, fevers, chills, vomiting, diarrhea, abdominal pain, headache, skin rash. Patient reports multiple stressors-going through a divorce. +anxiety. No depression, HI/SI, AVHallucinations. Does have a prescribing DENTAL HYGIENE PROFESSOR and therapist. Patient feels her symptoms may be mental health related and states I just need to rest for a few days upstairs. Patient feels she needs inpatient psych. She has not spoke to her outpatient providers about her current symptoms. Of note, patient had psych admission from 01/14-02/13 Related Data Previous Rx's Medication Instructions Recorded acetaminophen 325 mg tablet 650 mg PO Q6H PRN Headache/Pain 02/15/23 Mild Scale (1-3) #60 tabs diphenhydramine HCl 25 mg capsule 50 mg PO Q4H PRN Itching #60 caps 02/15/23 folic acid 1 mg tablet 1 mg PO DAILY #30 tabs 02/15/23 gabapentin 300 mg capsule 600 mg PO BEDTIME #21 caps 02/15/23 hydrocortisone 1 % topical cream 1 appl topical BID PRN rash on 02/15/23 legs #1 applicator levothyroxine 75 mcg tablet 75 mcg PO DAILY #30 tabs 02/15/23 lithium carbonate 450 mg 900 mg PO BEDTIME #42 tabs 02/15/23 tablet,extended release olanzapine 10 mg tablet 10 mg PO BID #42 tabs 02/15/23 propranolol 10 mg tablet 25 mg PO TID #63 tabs 02/15/23 trazodone 50 mg tablet 25 mg PO BEDTIME PRN insomnia #21 02/15/23 tabs dextroamphetamine-amphetamine 20 20 mg PO 1200 #21 tabs 02/16/23 mg tablet (Adderall) dextroamphetamine-amphetamine ER 30 mg PO QAM #21 caps 02/16/23 30 mg 24hr capsule,extend release (Adderall XR) diazepam 10 mg tablet 10 mg PO QID PRN anxiety #112 tabs 02/16/23 gabapentin 600 mg tablet 600 mg PO BEDTIME #15 tabs 02/25/23 acetaminophen 325 mg capsule 650 mg PO QID PRN pain #240 caps 03/07/23 (Tylenol) dextroamphetamine-amphetamine 20 20 mg PO .noon #30 tabs 03/07/23 mg tablet (Adderall) dextroamphetamine-amphetamine ER 30 mg PO QAM #30 caps 03/07/23 30 mg 24hr capsule,extend release (Adderall XR) diazepam 10 mg tablet (Valium) 10 mg PO QID PRN anxiety #28 tabs 03/07/23 diphenhydramine HCl 25 mg capsule 50 mg PO BEDTIME PRN sleep #60 caps 03/07/23 (Benadryl) folic acid 1 mg tablet 1 mg PO DAILY #30 tabs 03/07/23 gabapentin 600 mg tablet 600 mg PO BEDTIME #30 tabs 03/07/23 hydrocortisone 1 % topical cream 1 appl topical BID PRN itching 03/07/23 #28.4 grams levothyroxine 75 mcg capsule 75 mcg PO DAILY #30 caps 03/07/23 lithium carbonate 450 mg 900 mg PO BEDTIME #60 tabs 03/07/23 tablet,extended release olanzapine 10 mg tablet 10 mg PO BID #60 tabs 03/07/23 propranolol 10 mg tablet 5 mg PO TID #55 tabs 03/07/23 propranolol 20 mg tablet 20 mg PO TID #90 tabs 03/07/23 trazodone 50 mg tablet 50 mg PO BEDTIME PRN sleep #30 tabs 03/07/23 Allergies Allergy/AdvReac Type Severity Reaction Status Date / Time gluten AdvReac Gastrointestinal Verified 03/23/23 09:33 Upset lorazepam [From Ativan] AdvReac Headache Verified 03/23/23 09:33 wheat AdvReac Gastrointestinal Verified 03/23/23 09:33 Upset Review of Systems Review of Systems: Yes all other systems are reviewed and are negative Constitutional: Constitutional: Reports no additional constitutional complaints, Denies body ache(s), Denies chills, Denies fever(s), Denies headache(s) and Reports weakness Eyes: Eyes: Reports no additional eye complaints and Denies change in vision ENT: Reports system reviewed and no additional complaints, except as documented, Denies dizziness, Denies headache(s), Denies nasal congestion, Denies nasal discharge and Denies neck pain Cardiovascular: Cardiovascular: Reports no additional cardiovascular complaints, Denies chest pain, Denies leg edema and Reports dyspnea Respiratory: Respiratory: Reports no additional respiratory complaints, Denies cough and Reports dyspnea Gastrointestinal: Gastrointestinal: Reports no additional gastrointestinal complaints, Denies abdominal pain, Denies diarrhea, Denies nausea and Denies vomiting Genitourinary: Genitourinary: Reports no additional female genitourinary complaints and Denies urinary incontinence Musculoskeletal: Musculoskeletal: Reports no additional musculoskeletal complaints, Denies back pain, Denies arthralgias, Denies joint swelling, Denies neck pain, Denies numbness and Denies tingling Integumentary/Breasts: Skin/Breast: Reports system reviewed and no additional complaints, except as docu and Denies rash Neurologic: Reports system reviewed and no additional complaints, except as documented, Denies Abnormal speech present, Denies dizziness, Denies headache(s), Denies numbness, Denies tingling and Reports weakness Psychiatric: Psychiatric: Reports anxiety, Denies homicidal ideation and Denies suicidal ideation [facility] Past Medical History Attestation statement: The following information was validated with the patient. Source: old records reviewed and nursing notes reviewed Medical History ADHD Anxiety Ethan Marrero infection Lyme disease Mast cell activation Childress exposure PTSD (post-traumatic stress disorder) Social History Social History Household Members: Family and Children Housing: House Do you presently have visiting nurse or other home services: No Unable to assess alcohol history related to: Refusing to respond Patient Tobacco Use Status: Never used Tobacco Second Hand Smoke Exposure: No Advance Directives: No Advance Directives Information Provided: No service: No Sexual orientation: Straight/Heterosexual Physical Exam Vital Signs: Vital Signs: Last Vital Signs Temp 99 F 03/23/23 09:33 Pulse 100 03/23/23 09:33 Resp 19 03/23/23 09:33 BP 143/87 H 03/23/23 09:33 Pulse Ox 98 03/23/23 09:33 O2 Del Method Room Air 03/23/23 09:33 BMI result Body Mass Index 29.2 Const: General: cooperative, healthy appearing, comfortable and no acute distress Orientation/consciousness: patient oriented x3 Limitations: no limitations HEENT: Head: Yes normal to inspection Ears: hearing grossly normal bilaterally and TM's normal bilaterally General nose exam: Normal external nose present Face and sinus: Yes normal facial exam Mouth: Normal oral and palatal mucosa present Throat: Yes posterior oropharynx normal, Yes tonsils normal and Yes uvula midline Eyes: General: appearance normal, both eyes and all related structures Pupils: Equal, round and reactive pupils present Neck: Neck: Yes normal visual inspection, Yes full ROM, Yes no lymphadenopathy and Yes no meningeal signs Chest: Chest palpation & inspection: normal inspection of the chest Resp: Effort & Inspection: normal respiratory effort Auscultation: clear to auscultation bilaterally Cardio: Rate: regular rate Rhythm: regular rhythm Peripheral pulses: Peripheral pulses 2+ throughout GI: Inspection: Yes normal to inspection Palpation (GI): Soft to palpation and nontender Auscultation: normal bowel sounds Back/Spine/Pelvis: Thoracic/Lumbar Spine: thoracic and lumbar spine normal to inspection Skin: General skin exam: no rashes or lesions noted Neuro: General: patient oriented x3, no meningeal signs, no focal motor deficits and normal sensation to monofilament Cranial nerves: Yes Equal, round and reactive pupils present Cognition (Neuro): normal cognition Speech: No Abnormal speech present Gait exam (Neuro): Normal gait present Motor exam (neuro): 5/5 motor strength present throughout Extrem: General: Yes normal to inspection, Yes no pedal edema and Yes no calf tenderness Course Course Course Narrative: 1230-Reviewed medical w/u all unremarkable. Care team consult [facility] Reevaluation(s) Reevaluation #1: [id number]-Patient does not want to wait for CARE team. She will go home and fu with her outpatient providers. NO SI/HI, no safety concerns. Medications Administered Discontinued Medications Generic Name Dose Route Start Last Admin Trade Name Freq PRN Reason Stop Dose Admin Amphetamine/Dextroamphetamine 30 mg 03/23/23 11:31 03/23/23 11:37 Dextroamphetamine/Amphetamine Xr 10 Mg Cap.Er.24h PO 03/23/23 11:32 30 mg ONCE ONE Administration Diazepam 10 mg 03/23/23 11:31 03/23/23 11:41 Diazepam 2 Mg Tablet PO 03/23/23 11:32 10 mg ONCE ONE Administration Medical Decision Making Medical Decision Making MDM Narrative: 47 yo female with history of PTSD, anxiety, bipolar disorder, chronic fatigue syndrome, chronic lyme disease here with complaints of 4-5 days of SOB, fatigue, generalized body pain. Patient reports chronic fatigue and body pain. Shortness of breath at rest and with exertion with chest tightness. No cough, uri symptoms, fevers, chills, vomiting, diarrhea, abdominal pain, headache, skin rash. Patient reports multiple stressors-going through a divorce. +anxiety. No depression, HI/SI, AVHallucinations. Does have a prescribing DENTAL HYGIENE PROFESSOR and therapist. Patient feels her symptoms may be mental health related and states I just need to rest for a few days upstairs. Patient feels she needs inpatient psych. She has not spoke to her outpatient providers about her current symptoms. Of note, patient had psych admission from 01/14-02/13 Normal exam although patient appears tired, disheveled. Will obtain labs, EKG, CXR, covid/rsv/flu testing Will need care team eval once medically cleared Differential Diagnosis Differential Diagnoses: The differential diagnosis associated with the presentation includes PERC 0-low concern for PE ACS-low concern with symptoms x several days, negative trop and ekg Aortic dissection-low concern with gradual onset CHF PNA anxiety Admission/Observation Consideration of admission/observation: Escalation of care including admission/observation considered see discussion in course of care Consult Healthcare Provider Management of the patient was discussed with: Behavioral Health Provider Lab Data [facility] Lab Attestation statement: I reviewed the patient's lab results. Labs are unremarkable 03/23/23 11:31 03/23/23 11:31 Labs: Lab Results 03/23/23 03/23/23 03/23/23 Range/Units 11:31 11:31 11:31 WBC 9.7 (4.8-10.8) X10*3/uL RBC 4.24 (4.20-5.50) X10*6/uL Hgb 11.2 L (12.0-16.0) g/dl Hct 36.6 L (37.0-47.0) % MCV 86.3 (80.0-98.0) fL MCH 26.4 L (27.0-33.0) pg MCHC 30.6 L (31.0-35.0) g/dl RDW 16.1 H (11.0-16.0) % Plt Count 520 H (160-400) X10*3/uL MPV 9.0 L (9.4-12.3) fL Immature Gran % (Auto) 1.1 H (0.0-0.4) % Neut % (Auto) 76.1 H (45-73) % Lymph % (Auto) 15.0 L (20-40) % [place] % (Auto) 5.9 (2-11) % Eos % (Auto) 0.9 (0-4) % Baso % (Auto) 1.0 (0-2) % Lymph # (Auto) 1.5 (1.2-4.9) X10*3/uL [place] # (Auto) 0.6 (0.1-1.2) X10*3/uL Eos # (Auto) 0.1 (0.0-0.4) X10*3/uL Baso # (Auto) 0.1 (0.0-0.2) X10*3/uL Abs Immat Gran (auto) 0.11 H (0.00-0.03) X10*3/uL Absolute Neuts (auto) 7.4 (2.0-8.3) x10*3/uL Absolute Nucleated RBC 0.000 (0.0-0.012) X10*3/uL Nucleated RBC % (auto) 0.0 (0.0-0.2) /100WBC PT 11.0 L (11.1-13.3) SEC INR 0.9 (0.9-1.1) Sodium 138 (135-145) mmol/L Potassium 3.8 (3.3-5.1) mmol/L Chloride 106 (96-108) mmol/L Carbon Dioxide 26 (22-29) mmol/L Anion Gap 10 L (12-20) BUN 5 L (9-16) mg/dL Creatinine 0.75 (0.5-1.4) mg/dL Estim Creat Clear Calc 120.3 Estimated GFR > 60 Random Glucose 97 (60-115) mg/dL Calcium 9.6 (8.4-10.2) mg/dL Magnesium 2.0 (1.6-2.6) mg/dL Total Bilirubin 0.2 (0.0-1.0) mg/dL Direct Bilirubin < 0.2 (0.0-0.5) mg/dL AST 20 (5-31) U/L ALT 18 (0-31) U/L Alkaline Phosphatase 74 (39-117) U/L Total Creatine Kinase 39 (26-140) U/L Troponin I High Sens (<3.5-17.0) ng/L B-Natriuretic Peptide (<100) pg/mL Total Protein 7.6 (6.5-8.0) g/dL Albumin 4.2 (3.5-5.0) g/dL Urine Color Urine Appearance Urine pH (5.0-9.0) Ur Specific [place] (1.005-1.025) Urine Protein (Neg-Trace) mg/dL Urine Glucose (UA) (Negative) mg/dL Urine Ketones (Negative) mg/dL Urine Blood (Negative) Urine Nitrite (Negative) Ur Leukocyte Esterase (Negative) Urine RBC (0-2) /HPF Urine WBC (0-5) /HPF Ur Squamous Epith Cells (0-2) /HPF Urine Bacteria (None Seen) Hyaline Casts (0-2) /LPF Salicylates (15-30) mg/dL Urine Opiates Screen (Not Detect) Urine Fentanyl Screen (Not Detect) Acetaminophen (<30) mcg/mL Ur Barbiturates Screen (Not Detect) Ur Phencyclidine Scrn (Not Detect) Ur Amphetamines Screen (Not Detect) U Benzodiazepines Scrn (Not Detect) Urine Cocaine Screen (Not Detect) U Marijuana (THC) Screen (Not Detect) Ethyl Alcohol < 10 mg/dL Influenza Type A (PCR) (Negative) Influenza Type B (PCR) (Negative) RSV RNA Qual (PCR) (Negative) SARS-CoV-2 RNA (RT-PCR) (Negative) 03/23/23 03/23/23 03/23/23 Range/Units 11:31 11:31 11:31 WBC (4.8-10.8) X10*3/uL RBC (4.20-5.50) X10*6/uL Hgb (12.0-16.0) g/dl Hct (37.0-47.0) % MCV (80.0-98.0) fL MCH (27.0-33.0) pg MCHC (31.0-35.0) g/dl RDW (11.0-16.0) % Plt Count (160-400) X10*3/uL MPV (9.4-12.3) fL Immature Gran % (Auto) (0.0-0.4) % Neut % (Auto) (45-73) % Lymph % (Auto) (20-40) % [place] % (Auto) (2-11) % Eos % (Auto) (0-4) % Baso % (Auto) (0-2) % Lymph # (Auto) (1.2-4.9) X10*3/uL [place] # (Auto) (0.1-1.2) X10*3/uL Eos # (Auto) (0.0-0.4) X10*3/uL Baso # (Auto) (0.0-0.2) X10*3/uL Abs Immat Gran (auto) (0.00-0.03) X10*3/uL Absolute Neuts (auto) (2.0-8.3) x10*3/uL Absolute Nucleated RBC (0.0-0.012) X10*3/uL Nucleated RBC % (auto) (0.0-0.2) /100WBC PT (11.1-13.3) SEC INR (0.9-1.1) Sodium (135-145) mmol/L Potassium (3.3-5.1) mmol/L Chloride (96-108) mmol/L Carbon Dioxide (22-29) mmol/L Anion Gap (12-20) BUN (9-16) mg/dL Creatinine (0.5-1.4) mg/dL Estim Creat Clear Calc Estimated GFR Random Glucose (60-115) mg/dL Calcium (8.4-10.2) mg/dL Magnesium (1.6-2.6) mg/dL Total Bilirubin (0.0-1.0) mg/dL Direct Bilirubin (0.0-0.5) mg/dL AST (5-31) U/L ALT (0-31) U/L Alkaline Phosphatase (39-117) U/L Total Creatine Kinase (26-140) U/L Troponin I High Sens < 2.7 (<3.5-17.0) ng/L B-Natriuretic Peptide < 10 (<100) pg/mL Total Protein (6.5-8.0) g/dL Albumin (3.5-5.0) g/dL Urine Color Urine Appearance Urine pH (5.0-9.0) Ur Specific [place] (1.005-1.025) Urine Protein (Neg-Trace) mg/dL Urine Glucose (UA) (Negative) mg/dL Urine Ketones (Negative) mg/dL Urine Blood (Negative) Urine Nitrite (Negative) Ur Leukocyte Esterase (Negative) Urine RBC (0-2) /HPF Urine WBC (0-5) /HPF Ur Squamous Epith Cells (0-2) /HPF Urine Bacteria (None Seen) Hyaline Casts (0-2) /LPF Salicylates (15-30) mg/dL Urine Opiates Screen (Not Detect) Urine Fentanyl Screen (Not Detect) Acetaminophen (<30) mcg/mL Ur Barbiturates Screen (Not Detect) Ur Phencyclidine Scrn (Not Detect) Ur Amphetamines Screen (Not Detect) U Benzodiazepines Scrn (Not Detect) Urine Cocaine Screen (Not Detect) U Marijuana (THC) Screen (Not Detect) Ethyl Alcohol mg/dL Influenza Type A (PCR) NEGATIVE (Negative) Influenza Type B (PCR) NEGATIVE (Negative) RSV RNA Qual (PCR) NEGATIVE (Negative) SARS-CoV-2 RNA (RT-PCR) NEGATIVE (Negative) 03/23/23 03/23/23 03/23/23 Range/Units 11:31 11:34 11:34 WBC (4.8-10.8) X10*3/uL RBC (4.20-5.50) X10*6/uL Hgb (12.0-16.0) g/dl Hct (37.0-47.0) % MCV (80.0-98.0) fL MCH (27.0-33.0) pg MCHC (31.0-35.0) g/dl RDW (11.0-16.0) % Plt Count (160-400) X10*3/uL MPV (9.4-12.3) fL Immature Gran % (Auto) (0.0-0.4) % Neut % (Auto) (45-73) % Lymph % (Auto) (20-40) % [place] % (Auto) (2-11) % Eos % (Auto) (0-4) % Baso % (Auto) (0-2) % Lymph # (Auto) (1.2-4.9) X10*3/uL [place] # (Auto) (0.1-1.2) X10*3/uL Eos # (Auto) (0.0-0.4) X10*3/uL Baso # (Auto) (0.0-0.2) X10*3/uL Abs Immat Gran (auto) (0.00-0.03) X10*3/uL Absolute Neuts (auto) (2.0-8.3) x10*3/uL Absolute Nucleated RBC (0.0-0.012) X10*3/uL Nucleated RBC % (auto) (0.0-0.2) /100WBC PT (11.1-13.3) SEC INR (0.9-1.1) Sodium (135-145) mmol/L Potassium (3.3-5.1) mmol/L Chloride (96-108) mmol/L Carbon Dioxide (22-29) mmol/L Anion Gap (12-20) BUN (9-16) mg/dL Creatinine (0.5-1.4) mg/dL Estim Creat Clear Calc Estimated GFR Random Glucose (60-115) mg/dL Calcium (8.4-10.2) mg/dL Magnesium (1.6-2.6) mg/dL Total Bilirubin (0.0-1.0) mg/dL Direct Bilirubin (0.0-0.5) mg/dL AST (5-31) U/L ALT (0-31) U/L Alkaline Phosphatase (39-117) U/L Total Creatine Kinase (26-140) U/L Troponin I High Sens (<3.5-17.0) ng/L B-Natriuretic Peptide (<100) pg/mL Total Protein (6.5-8.0) g/dL Albumin (3.5-5.0) g/dL Urine Color Yellow Urine Appearance Clear Urine pH 7.5 (5.0-9.0) Ur Specific [place] <= 1.005 (1.005-1.025) Urine Protein Negative (Neg-Trace) mg/dL Urine Glucose (UA) Negative (Negative) mg/dL Urine Ketones Negative (Negative) mg/dL Urine Blood Negative (Negative) Urine Nitrite Negative (Negative) Ur Leukocyte Esterase Trace H (Negative) Urine RBC 0-2 (0-2) /HPF Urine WBC 0-5 (0-5) /HPF Ur Squamous Epith Cells 6-10 (0-2) /HPF Urine Bacteria None Seen (None Seen) Hyaline Casts 0-2 (0-2) /LPF Salicylates < 5.0 L (15-30) mg/dL Urine Opiates Screen Not Detected (Not Detect) Urine Fentanyl Screen Not Detected (Not Detect) Acetaminophen < 17 (<30) mcg/mL Ur Barbiturates Screen Not Detected (Not Detect) Ur Phencyclidine Scrn Not Detected (Not Detect) Ur Amphetamines Screen Not Detected (Not Detect) U Benzodiazepines Scrn POSITIVE H (Not Detect) Urine Cocaine Screen Not Detected (Not Detect) U Marijuana (THC) Screen Not Detected (Not Detect) Ethyl Alcohol mg/dL Influenza Type A (PCR) (Negative) Influenza Type B (PCR) (Negative) RSV RNA Qual (PCR) (Negative) SARS-CoV-2 RNA (RT-PCR) (Negative) Independent Interpretation I performed an independent interpretation of an: EKG and Plain X-Ray Interpretation: I independently reviewed the x-ray of the chest and agree with the radiologist report I independently reviewed the EKG which shows NSR with rate 78, normal pr, normal qrs, normal qt, non specific ST Changes Radiology Impression Discussion of test interpretation with radiology: I have reviewed the radiologist's reading. Radiologist Impression: [place] [id number] XRay Report Signed Patient: Angélica Peralta MR#: [id number] : 1975 Acct:[id number] Age/Sex: 47 / F ADM Date: 03/23/23 Loc: .ED Attending Dr: Ordering Physician: Odalys Morel NP Date of Service: 03/23/23 Procedure(s): XR chest 2V Accession Number(s): [id number] cc: Odalys Morel NP~ EXAMINATION: XR CHEST CLINICAL INFORMATION: Shortness of breath. COMPARISON: None available. TECHNIQUE: 2 views of the chest were obtained. FINDINGS: No significant abnormality is noted involving the heart, lungs, mediastinum, bony thorax or soft tissues. XR/XR chest 2V IMPRESSION: No acute cardiopulmonary process. Independent Historian Clinical information obtained from an independent historian. History obtained from or confirmed by: Other Sister is at the bedside who provides additional information External Record Review External record reviewed: Inpatient record Reviewed psych admission records Discharge Plan Discharge Clinical Impression: Anxiety Patient Disposition: Home, Self-Care Instructions: Anxiety (ED) Additional Instructions: We offered a CARE team evaluation but you declined this Follow-up with your outpatient providers. Return for any safety concerns Prescriptions: No Action acetaminophen 325 mg Tablet 650 mg PO Q6H PRN (Reason: Headache/Pain Mild Scale (1-3)) Qty: 60 0RF olanzapine 10 mg Tablet 10 mg PO BID Qty: 42 0RF lithium carbonate 450 mg Tablet Extended Release 900 mg PO BEDTIME Qty: 42 0RF propranolol 10 mg Tablet 25 mg PO TID Qty: 63 0RF Protocol: Hold for SBP/HR < HOLD for SBP < : 90 HOLD for HR < : 60 hydrocortisone 1 % Cream 1 appl topical BID PRN (Reason: rash on legs) Qty: 1 0RF Protocol: Apply to: Apply to: legs, affected areas diphenhydramine HCl 25 mg Capsule 50 mg PO Q4H PRN (Reason: Itching) Qty: 60 0RF gabapentin 300 mg Capsule 600 mg PO BEDTIME Qty: 21 0RF folic acid 1 mg Tablet 1 mg PO DAILY Qty: 30 0RF trazodone 50 mg tablet 25 mg PO BEDTIME PRN (Reason: insomnia) Qty: 21 0RF levothyroxine 75 mcg Tablet 75 mcg PO DAILY Qty: 30 0RF diazepam 10 mg tablet 10 mg PO QID PRN (Reason: anxiety) Qty: 112 0RF dextroamphetamine-amphetamine [Adderall] 20 mg tablet 20 mg PO 1200 Qty: 21 0RF Rx Instructions: Partial Fill upon patient request. dextroamphetamine-amphetamine [Adderall XR] 30 mg capsule,extended release 24hr 30 mg PO QAM Qty: 21 0RF Rx Instructions: Partial Fill upon patient request. gabapentin 600 mg tablet 600 mg PO BEDTIME Qty: 15 1RF acetaminophen [Tylenol] 325 mg capsule 650 mg PO QID PRN (Reason: pain) Qty: 240 0RF diphenhydramine HCl [Benadryl] 25 mg capsule 50 mg PO BEDTIME PRN (Reason: sleep) Qty: 60 0RF dextroamphetamine-amphetamine [Adderall XR] 30 mg capsule,extended release 24hr 30 mg PO QAM Qty: 30 0RF Rx Instructions: Partial Fill upon patient request. dextroamphetamine-amphetamine [Adderall] 20 mg tablet 20 mg PO .noon Qty: 30 0RF Rx Instructions: Partial Fill upon patient request. diazepam [Valium] 10 mg tablet 10 mg PO QID PRN (Reason: anxiety) Qty: 28 3RF folic acid 1 mg tablet 1 mg PO DAILY Qty: 30 0RF gabapentin 600 mg tablet 600 mg PO BEDTIME Qty: 30 0RF hydrocortisone 1 % cream 1 appl topical BID PRN (Reason: itching) Qty: 28.4 0RF lithium carbonate 450 mg tablet extended release 900 mg PO BEDTIME Qty: 60 0RF olanzapine 10 mg tablet 10 mg PO BID Qty: 60 0RF propranolol 20 mg tablet 20 mg PO TID Qty: 90 0RF Rx Instructions: 25 mg three times per day. propranolol 10 mg tablet 5 mg PO TID Qty: 55 0RF Rx Instructions: 25 mg three times per day. trazodone 50 mg tablet 50 mg PO BEDTIME PRN (Reason: sleep) Qty: 30 0RF levothyroxine 75 mcg capsule 75 mcg PO DAILY Qty: 30 0RF Referrals: Gibran Levi DENTAL HYGIENE PROFESSOR [Primary Care Provider] - 1 week Stand Alone Forms: Work/School Release Interventions: ED Discharge Assessment Last Done: 03/23/23 14:02 Discharge Date/Time: 03/23/23 14:02
--- NOTE | 2023-03-23 10:05 | ECG_ITS ---
Test Reason : SHORT OF BREATH Blood Pressure : / mmHG Vent. Rate : 078 BPM Atrial Rate : 078 BPM P-R Int : 154 ms QRS Dur : 084 ms QT Int : 376 ms P-R-T Axes : 062 047 042 degrees QTc Int : 428 ms Normal sinus rhythm Nonspecific T wave abnormality Abnormal ECG When compared with ECG of 31-JAN-2023 06:20, Non-specific change in ST segment in Inferior leads Nonspecific T wave abnormality now evident in Anterolateral leads Referred By: Odalys Figueroa Electronically Signed By:ARUNA QUEEN
[2023-03-23] MEDS: Dextroamphetamine/Amphetamine XR 10 MG CAP.ER.24H 30 MG PO (11:37)
[2023-03-23 11:41] LABS: MANUAL DIFF FLAG NO
[2023-03-23] MEDS: diazePAM 2 MG TABLET 10 MG PO (11:41)
[2023-03-23 11:44] LABS: Basophils Absolute Auto 0.1 X10*3/uL (0.0-0.2); Eosinophils Absolute Auto 0.1 X10*3/uL (0.0-0.4); Eosinophils Percent Auto 0.9 % (0-4); Hematocrit 36.6 % (37.0-47.0); Hemoglobin 11.2 g/dl (12.0-16.0); Imm Gran Abs Auto 0.11 X10*3/uL (0.00-0.03); Imm Gran Pct Auto 1.1 % (0.0-0.4); Lymphocytes Absolute Auto 1.5 X10*3/uL (1.2-4.9); Mean Corpuscular HGB Conc 30.6 g/dl (31.0-35.0); Mean Corpuscular Hemoglobin 26.4 pg (27.0-33.0); Mean Corpuscular Volume 86.3 fL (80.0-98.0); Monocytes Absolute Auto 0.6 X10*3/uL (0.1-1.2); Monocytes Percent Auto 5.9 % (2-11); Neutrophils Absolute Auto 7.4 x10*3/uL (2.0-8.3); Neutrophils Percent Auto 76.1 % (45-73); Platelet Count 520 X10*3/uL (160-400); Red Blood Count 4.24 X10*6/uL (4.20-5.50); Red Cell Distribution Width 16.1 % (11.0-16.0); White Blood Count 9.7 X10*3/uL (4.8-10.8)
[2023-03-23 11:46] LABS: Appearance Urine Clear; Color Urine Yellow; Glucose Urine UA Negative (Negative); Leukocyte Esterase Urine Trace (Negative); Nitrite Urine Negative (Negative); PH 7.5 (5.0-9.0); Specific Gravity - Urine <= 1.005 (1.005-1.025); UMIC TRIGGER UACC YES; Urine Blood Negative (Negative); Urine Ketones Negative (Negative); Urine Protein Negative (Neg-Trace)
--- NOTE | 2023-03-23 11:47 | PC.NURSE ---
pt medicated per MAR
[2023-03-23 11:49] LABS: INTERNATIONAL NORM RATIO 0.9 (0.9-1.1)
[2023-03-23 11:54] LABS: Amphetamine Screen Urine Not Detected (Not Detect); Bacteria Urine None Seen (None Seen); Barbiturates, Urine Not Detected (Not Detect); Benzodiazepines Screen Urine POSITIVE (Not Detect); Cannabinoid Screen Urine Not Detected (Not Detect); Cocaine Screen Urine Not Detected (Not Detect); Fentanyl, urine Not Detected (Not Detect); Hyaline Casts Urine 0-2 /LPF (0-2); Opiate Screen Urine Not Detected (Not Detect); Phencyclidine Screen Urine Not Detected (Not Detect); RBC Urine 0-2 /HPF (0-2); WBC Urine 0-5 /HPF (0-5)
[2023-03-23 12:07] LABS: Acetaminophen LAB < 17 mcg/mL (<30); Alanine Aminotransferase 18 U/L (0-31); Albumin Level 4.2 g/dL (3.5-5.0); Alkaline Phosphatase 74 U/L (39-117); Anion Gap 10 (12-20); Aspartate Amino Transferase 20 U/L (5-31); B Type Natriuretic Peptide < 10 pg/mL (<100); Bilirubin Direct < 0.2 mg/dL (0.0-0.5); Bilirubin Total 0.2 mg/dL (0.0-1.0); Blood Urea Nitrogen 5 mg/dL (9-16); Calcium 9.6 mg/dL (8.4-10.2); Carbon Dioxide 26 mmol/L (22-29); Chloride 106 mmol/L (96-108); Creatinine Clr Calc Pharmacy 120.3; Estimated Glomerular Filt Rate > 60; Ethanol < 10 mg/dL; Glucose Random 97 mg/dL (60-115); Potassium 3.8 mmol/L (3.3-5.1); Salicylate < 5.0 mg/dL (15-30); Sodium 138 mmol/L (135-145); Total Protein 7.6 g/dL (6.5-8.0)
[2023-03-23 12:16] LABS: Troponin-I High Sensitivity < 2.7 ng/L (<3.5-17.0)
[2023-03-23 12:30] LABS: Influenza A PCR NEGATIVE (Negative); Influenza B PCR NEGATIVE (Negative); Resp Syncy Virus RNA Qual PCR NEGATIVE (Negative); SARS COV2 PCR INHOUSE NEGATIVE (Negative)
--- NOTE | 2023-03-23 13:59 | PC.NURSE ---
pt wishes to leave at this time, decilining care team sudeep Gonzales from CARE team notified
== END 2023-03-23 14:02 | disposition home or self-care (01) ==
PROVIDERS: Nurse Practitioner Family; Emergency Provider Student in an Organized Health Care Education/Training Program; PCP Nurse Practitioner Family
DX: F41.9 Anxiety disorder, unspecified (principal); R06.02 Shortness of breath; Z20.822 Contact with and (suspected) exposure to COVID-19; Z20.828 Contact with and (suspected) exposure to other viral communicable diseases; F43.10 Post-traumatic stress disorder, unspecified; F31.9 Bipolar disorder, unspecified; G93.32 Myalgic encephalomyelitis/chronic fatigue syndrome; Z79.899 Other long term (current) drug therapy
CPT/HCPCS: 0241U; 71046; 80048; 80076; 80143; 80179; 80307; 81001; 82550; 83735; 83880; 84484; 85025; 85610; 93005; 99283

== ENCOUNTER 2023-04-15 06:01 | Emergency (ER) | payer MEDICAID, SELFPAY ==
[2023-04-15 06:16] VITALS: BP 121/87; PULSE 80; RESP 20; TEMP 37.2; O2SAT 98; BMI 23.4
--- OUTSIDE RECORDS SUMMARY | 2023-04-15 06:35 | XMS_ITS | Patient Health Record ---
Author Name Unknown Organization Abner Rogers DO, FACP Address [address] [place], [place] [id number] Care Team Providers Care Manager Lsw Name Role Phone LESIA REGULATOR OPERATOR, PAOLA Primary Care Provider Unavail able Abner Rogers Unavailable [phone] JACINTO BLANDON Unavailable Unavailable REASON FOR REFERRAL No Information MEDICATIONS Medication SIG (Take, Route, Fr equency, Duration) Notes Start Date End Date Status EpiPen 2-Mohamud 0.3 MG/0.3ML as directed Injection inject once subcutaneously as needed 05/17/2014 Active Vitamin D 1000 UNIT 1 tablet Orally Once a day for 90 days Active Sertraline HCl 50 MG 1 tablet Orally Onc e a day for 30 day(s) 05/09/2015 Active ALPRAZolam 0.5 MG 1 tablet as needed O rally Twice a day for 30 days 05/12/2011 Active Synthroid 50 MCG 1 tablet Orally Once a day Active IMMUNIZATIONS Vaccine Route Administration Date Status Comme nts TDaP IM Intramuscular 10/18/2012 Administered DECLINE: Influenza Unknown 08/14/2013 Administered Influenza Quad IM Intramuscular 05/09/2015 Administered SOCIAL HISTORY Sex Assigned At : Social History Observation Description Sex Assigned At Unknown PROBLEMS Problem Type ICD Code Onset Dates Problem Status W/U Status Risk SNOMED Code Notes Problem Generalized anxiety disorder (300.02) Active confirmed Generalized anxiety disorder (55920380) Problem Celiac disease (579.0) Active confirmed Celiac disease (568194659) Problem Hypothyroidism (244.9) Active confirmed Hypothyroidism (77094685) Problem Vitamin D deficiency (268.9) Active confirmed Vitamin D deficiency (19766567) Problem (V22.2) Active confirmed 7738 6006 Problem Generalized anxiety disorder (F41.1) Active confirmed 33958351 Problem Acquired hypothyroidism (E03.9) Active confirmed 945551511 PLAN OF TREATMENT Pending Test Test Name Order Date CBC w DIFF 05/09/2015 LIPOPROTEIN FRACTIONATION (LIPID PANEL) 05/09/2015 PROFILE, FASTING 05/09/2015 TSH (THYROID STIMULATING HORMONE) 2014 VITAMIN D 25-OH TOTAL 05/09/2015 Insurance Providers Payer Name Payer Address Payer Phone Subscriber Number Group Number Insured Name Patient Relationship to Insured Coverage Start Date Coverage End Date [facility] [address] [place] [id number] Angélica Peralta Self - patient is the insured MEDICAL (GENERAL) HISTORY Medical History History ICD Code manny's thyroiditis celiac disease irritable bowel syndrome pancreatitis anxiety disorder mononucleosis scarlet fever allergies Surgical History Surgery Date(Month/Year) wisdom teeth extraction appendectomy bilateral salpingectomy
[2023-04-15 06:39] LABS: Hemoglobin 11.4 g/dl (12.0-16.0); Mean Corpuscular HGB Conc 31.7 g/dl (31.0-35.0); Mean Corpuscular Hemoglobin 26.1 pg (27.0-33.0); Mean Corpuscular Volume 82.4 fL (80.0-98.0); Mean Platelet Volume 8.4 fL (9.4-12.3); Platelet Count 491 X10*3/uL (160-400); Red Blood Count 4.37 X10*6/uL (4.20-5.50); Red Cell Distribution Width 14.7 % (11.0-16.0); White Blood Count 10.6 X10*3/uL (4.8-10.8)
[2023-04-15 06:53] LABS: Alanine Aminotransferase 10 U/L (0-31); Albumin Level 4.2 g/dL (3.5-5.0); Alkaline Phosphatase 78 U/L (39-117); Anion Gap 9 (12-20); Aspartate Amino Transferase 13 U/L (5-31); Bilirubin Total 0.2 mg/dL (0.0-1.0); Blood Urea Nitrogen 4 mg/dL (9-16); Calcium 9.2 mg/dL (8.4-10.2); Carbon Dioxide 23 mmol/L (22-29); Chloride 109 mmol/L (96-108); Creatinine Clr Calc Pharmacy 110.2; Estimated Glomerular Filt Rate > 60; Glucose Random 110 mg/dL (60-115); Lipase 19 U/L (8-78); Potassium 3.8 mmol/L (3.3-5.1); Sodium 137 mmol/L (135-145); Total Protein 7.4 g/dL (6.5-8.0)
[2023-04-15 08:33] VITALS: BP 117/56; PULSE 73; RESP 14; TEMP 36.8; O2SAT 99
--- NOTE | 2023-04-15 09:47 | ED.GENADULT ---
HPI - General Adult General Chief complaint: General Medical Stated complaint: Vomiting x 4days Time Seen by Provider: 04/15/23 08:59 Source: patient and RN notes reviewed Mode of arrival: ambulatory Limitations: no limitations History of Present Illness HPI narrative: this is a 47-year-old female, with a past medical history of heat celiac disease, presenting to the emergency department with complaints of headaches, nausea, vomiting x4 days. Patient reports that she has been unable to take her medications given vomiting. She states that she has been vomiting. she states that she has had subjective fevers and chills. Denies any sore throat, nasal congestion runny nose, shortness of breath, chest pain. Denies any abdominal pain or diarrhea. Denies any other complaints or concerns at this time. MD complaint: Headache, nausea, vomiting Onset (ago): day(s) Radiation: non-radiation Severity: moderate Quality: aching Pain Consistency: constant Relieving factors: none Exacerbating factors: none Associated symptoms: denies other symptoms Treatments prior to arrival: none Related Data Previous Rx's Medication Instructions Recorded acetaminophen 325 mg tablet 650 mg (2 x 325 mg) PO Q6H PRN 02/15/23 Headache/Pain Mild Scale (1-3) #60 tabs diphenhydramine HCl 25 mg capsule 50 mg (2 x 25 mg) PO Q4H PRN 02/15/23 Itching #60 caps folic acid 1 mg tablet 1 mg PO DAILY #30 tabs 02/15/23 gabapentin 300 mg capsule 600 mg (2 x 300 mg) PO BEDTIME #21 02/15/23 caps hydrocortisone 1 % topical cream 1 appl topical BID PRN rash on 02/15/23 legs #1 applicator levothyroxine 75 mcg tablet 75 mcg PO DAILY #30 tabs 02/15/23 lithium carbonate 450 mg 900 mg (2 x 450 mg) PO BEDTIME #42 02/15/23 tablet,extended release tabs olanzapine 10 mg tablet 10 mg PO BID #42 tabs 02/15/23 propranolol 10 mg tablet 25 mg PO TID #63 tabs 02/15/23 trazodone 50 mg tablet 25 mg (1/2 x 50 mg) PO BEDTIME PRN 02/15/23 insomnia #21 tabs dextroamphetamine-amphetamine 20 20 mg PO 1200 #21 tabs 02/16/23 mg tablet (Adderall) dextroamphetamine-amphetamine ER 30 mg PO QAM #21 caps 02/16/23 30 mg 24hr capsule,extend release (Adderall XR) diazepam 10 mg tablet 10 mg PO QID PRN anxiety #112 tabs 02/16/23 gabapentin 600 mg tablet 600 mg PO BEDTIME #15 tabs 02/25/23 acetaminophen 325 mg capsule 650 mg (2 x 325 mg) PO QID PRN 03/07/23 (Tylenol) pain #240 caps dextroamphetamine-amphetamine 20 20 mg PO .noon #30 tabs 03/07/23 mg tablet (Adderall) dextroamphetamine-amphetamine ER 30 mg PO QAM #30 caps 03/07/23 30 mg 24hr capsule,extend release (Adderall XR) diazepam 10 mg tablet (Valium) 10 mg PO QID PRN anxiety #28 tabs 03/07/23 diphenhydramine HCl 25 mg capsule 50 mg (2 x 25 mg) PO BEDTIME PRN 03/07/23 (Benadryl) sleep #60 caps folic acid 1 mg tablet 1 mg PO DAILY #30 tabs 03/07/23 gabapentin 600 mg tablet 600 mg PO BEDTIME #30 tabs 03/07/23 hydrocortisone 1 % topical cream 1 appl topical BID PRN itching 03/07/23 #28.4 grams levothyroxine 75 mcg capsule 75 mcg PO DAILY #30 caps 03/07/23 lithium carbonate 450 mg 900 mg (2 x 450 mg) PO BEDTIME #60 03/07/23 tablet,extended release tabs olanzapine 10 mg tablet 10 mg PO BID #60 tabs 03/07/23 propranolol 10 mg tablet 5 mg (1/2 x 10 mg) PO TID #55 tabs 03/07/23 propranolol 20 mg tablet 20 mg PO TID #90 tabs 03/07/23 trazodone 50 mg tablet 50 mg PO BEDTIME PRN sleep #30 tabs 03/07/23 ondansetron 4 mg disintegrating 4 mg PO Q6-8H PRN nausea and 04/15/23 tablet vomiting #10 tabs Allergies Allergy/AdvReac Type Severity Reaction Status Date / Time gluten AdvReac Gastrointestinal Verified 03/23/23 09:33 Upset lorazepam [From Ativan] AdvReac Headache Verified 03/23/23 09:33 wheat AdvReac Gastrointestinal Verified 03/23/23 09:33 Upset Review of Systems Review of Systems: Yes all other systems are reviewed and are negative Constitutional: Constitutional: Reports as per [facility] Past Medical History Medical History ADHD Anxiety Ethan Marrero infection Lyme disease Mast cell activation [place] exposure PTSD (post-traumatic stress disorder) Social History Social History Household Members: Family and Children Housing: House Do you presently have visiting nurse or other home services: No Unable to assess alcohol history related to: Refusing to respond Patient Tobacco Use Status: Never used Tobacco Second Hand Smoke Exposure: No Advance Directives: No Advance Directives Information Provided: Yes service: No Sexual orientation: Straight/Heterosexual Physical Exam ED Vital Signs: Vital Signs - 24 hr 04/15/23 06:16 04/15/23 08:33 04/15/23 12:01 Temperature 98.9 F 98.2 F Pulse Rate 80 73 87 Respiratory Rate 20 14 14 Blood Pressure 121/87 117/56 L 125/80 Pulse Oximetry 98 99 98 Oxygen Delivery Method Room Air Room Air Room Air BMI result Body Mass Index 23.4 Const General: cooperative, comfortable and no acute distress Orientation/consciousness: patient oriented x3 Limitations: no limitations HENMT Head: Yes normal to inspection, Yes normocephalic and Yes atraumatic Ears: hearing grossly normal bilaterally General nose exam: Normal external nose present Face and sinus: Yes normal facial exam Mouth: Normal oral and palatal mucosa present, oropharynx normal and moist mucous membranes Throat: Yes posterior oropharynx normal Eyes General: appearance normal, both eyes and all related structures Eyelids: Yes eyelids normal Conjunctivae: conjunctivae normal Sclerae: sclerae normal Pupils: Equal, round and reactive pupils present EOM: EOMs intact bilaterally Neck Neck: Yes normal visual inspection, Yes full ROM and Yes no lymphadenopathy Lymphatic: no lymphadenopathy noted Chest Chest palpation & inspection: normal inspection of the chest Resp Effort & Inspection: normal respiratory effort and able to speak in complete sentences Auscultation: clear to auscultation bilaterally, no crackles, no rales, no rhonchi and no wheezes Cardio Rate: regular rate Rhythm: regular rhythm Heart sounds: S1 normal heart sound present and S2 normal heart sound present GI Inspection: Yes normal to inspection Skin General skin exam: no rashes or lesions noted Trauma: no lacerations or abrasions Wounds: no wounds Neuro General: patient oriented x3 and moves all extremities Cranial nerves: Yes Facial sensation intact/muscles of mastication intact, Yes Equal, round and reactive pupils present, Yes Bilaterally intact EOM present, Yes Nystagmus not present, Yes Normal facial strength present, Yes Midline tongue present, Yes Ability to bilaterally rotate head present and Yes Ability to bilaterally elevate shoulders present Cognition (Neuro): normal cognition Gait exam (Neuro): Normal gait present Motor exam (neuro): 5/5 motor strength present throughout and Pronator motor function not present Extrem General: Yes normal to inspection Right upper extremity: normal to inspection Left upper extremity: normal to inspection Right lower extremity: normal to inspection Left lower extremity: normal to inspection Course Reevaluation(s) Reevaluation #1: Patient re-evaluated, feeling improved after receiving IV Toradol, Zofran, and Benadryl. Still reporting a 7/10 headache pain. Will medicate with morphine 4 mg IV. Will administer 1 L of IV fluids. Also will p.o. trial after receiving these medications. Her nausea has since resolved. Time: 12:01 Reevaluation #2: patient feeling much better after receiving morphine, now reporting 0/10 pain. do think it is appropriate to discharge patient at this time. Given return precautions. Patient understands and agrees with plan. Patient stable for discharge. Time: 13:31 Medications Administered Discontinued Medications Generic Name Dose Route Start Last Admin Trade Name Freq PRN Reason Stop Dose Admin Diphenhydramine HCl 50 mg 04/15/23 09:45 04/15/23 10:39 Diphenhydramine Hcl 50 Mg/Ml Vial IVPUSH 04/15/23 09:46 50 mg ONCE ONE Administration Sodium Chloride 1,000 mls @ 999 mls/hr 04/15/23 09:45 04/15/23 12:24 Ns IV 04/15/23 10:45 Infused .Q1H1M ONE Infusion Sodium Chloride 1,000 mls @ 999 mls/hr 04/15/23 12:01 04/15/23 12:15 Ns IV 04/15/23 13:01 999 mls/hr .Q1H1M ONE Administration Ketorolac Tromethamine 30 mg 04/15/23 09:45 04/15/23 10:39 Ketorolac Tromethamine 30 Mg/Ml Vial IVPUSH 04/15/23 09:46 30 mg ONCE ONE Administration Morphine Sulfate 4 mg 04/15/23 12:01 04/15/23 12:15 Morphine Sulfate 4 Mg/Ml Cartridge IVPUSH 04/15/23 12:02 4 mg ONCE ONE Administration Protocol Ondansetron HCl 4 mg 04/15/23 09:47 04/15/23 10:39 Ondansetron Hcl 4 Mg/2 Ml Vial IVPUSH 04/15/23 09:48 4 mg ONCE ONE Administration Medical Decision Making Medical Decision Making [facility] Narrative: 47-year-old female presenting to the emergency department with complaints of headache and vomiting x4 days. She states that she is in a household with many sick kids. She denies any cough. labs were obtained prior to my assessment, no leukocytosis, stable H&H, electrolytes within normal limits. Urine unremarkable. Patient's abdomen is soft and nontender. patient is fully neurologically intact without any deficits. She is not on blood thinners. Patient likely dehydrated causing her to have this headache. plan: labs, IV fluids, Toradol, Benadryl Differential Diagnosis Differential Diagnoses: The differential diagnosis associated with the presentation includes migraine headache, tension headache, dehydration, electrolyte abnormality Admission/Observation Consideration of admission/observation: Escalation of care including admission/observation considered Lab Data [facility] Lab Attestation statement: I reviewed the patient's lab results. 04/15/23 06:32 04/15/23 06:32 Labs: Lab Results 04/15/23 04/15/23 Range/Units 06:32 09:40 WBC 10.6 (4.8-10.8) X10*3/uL RBC 4.37 (4.20-5.50) X10*6/uL Hgb 11.4 L (12.0-16.0) g/dl Hct 36.0 L (37.0-47.0) % MCV 82.4 (80.0-98.0) fL MCH 26.1 L (27.0-33.0) pg MCHC 31.7 (31.0-35.0) g/dl RDW 14.7 (11.0-16.0) % Plt Count 491 H (160-400) X10*3/uL MPV 8.4 L (9.4-12.3) fL Absolute Nucleated RBC 0.000 (0.0-0.012) X10*3/uL Nucleated RBC % (auto) 0.0 (0.0-0.2) /100WBC Sodium 137 (135-145) mmol/L Potassium 3.8 (3.3-5.1) mmol/L Chloride 109 H (96-108) mmol/L Carbon Dioxide 23 (22-29) mmol/L Anion Gap 9 L (12-20) BUN 4 L (9-16) mg/dL Creatinine 0.72 (0.5-1.4) mg/dL Estim Creat Clear Calc 110.2 Estimated GFR > 60 Random Glucose 110 (60-115) mg/dL Calcium 9.2 (8.4-10.2) mg/dL Total Bilirubin 0.2 (0.0-1.0) mg/dL AST 13 (5-31) U/L ALT 10 (0-31) U/L Alkaline Phosphatase 78 (39-117) U/L Total Protein 7.4 (6.5-8.0) g/dL Albumin 4.2 (3.5-5.0) g/dL Lipase 19 (8-78) U/L Urine Color Yellow Urine Appearance Clear Urine pH 8.5 (5.0-9.0) Ur Specific [place] 1.010 (1.005-1.025) Urine Protein Negative (Neg-Trace) mg/dL Urine Glucose (UA) Negative (Negative) mg/dL Urine Ketones Negative (Negative) mg/dL Urine Blood Negative (Negative) Urine Nitrite Negative (Negative) Ur Leukocyte Esterase Negative (Negative) Urine RBC 0-2 (0-2) /HPF Urine WBC 0-5 (0-5) /HPF Ur Squamous Epith Cells 3-5 (0-2) /HPF Urine Bacteria None Seen (None Seen) Hyaline Casts 0-2 (0-2) /LPF Radiology Impression Discussion of test interpretation with radiology: I have reviewed the radiologist's reading. External Record Review External record reviewed: Inpatient record, Office record, Outpatient record, Prior outpatient labs, Prior outpatient radiology, Primary care record and Outside ED record Discharge Plan Discharge Clinical Impression: Headache, migraine, Vomiting Patient Disposition: Home, Self-Care Instructions: Migraine Headache (ED), Acute Nausea and Vomiting (ED) Additional Instructions: You have symptoms consistent with a migraine headache This could be due to lack of sleep, dehydration or a virus. Please drink plenty of fluids get plenty of rest. Take prescribed Zofran as needed for nausea or vomiting. If any new or worsening symptoms occur, Including but not limited to chest pain, shortness of breath, worsening headache, please return for re-evaluation. Follow up with your primary care physician. Prescriptions: New ondansetron 4 mg tablet,disintegrating 4 mg PO Q6-8H PRN (Reason: nausea and vomiting) Qty: 10 0RF No Action acetaminophen 325 mg Tablet 650 mg PO Q6H PRN (Reason: Headache/Pain Mild Scale (1-3)) Qty: 60 0RF olanzapine 10 mg Tablet 10 mg PO BID Qty: 42 0RF lithium carbonate 450 mg Tablet Extended Release 900 mg PO BEDTIME Qty: 42 0RF propranolol 10 mg Tablet 25 mg PO TID Qty: 63 0RF Protocol: Hold for SBP/HR < HOLD for SBP < : 90 HOLD for HR < : 60 hydrocortisone 1 % Cream 1 appl topical BID PRN (Reason: rash on legs) Qty: 1 0RF Protocol: Apply to: Apply to: legs, affected areas diphenhydramine HCl 25 mg Capsule 50 mg PO Q4H PRN (Reason: Itching) Qty: 60 0RF gabapentin 300 mg Capsule 600 mg PO BEDTIME Qty: 21 0RF folic acid 1 mg Tablet 1 mg PO DAILY Qty: 30 0RF trazodone 50 mg tablet 25 mg PO BEDTIME PRN (Reason: insomnia) Qty: 21 0RF levothyroxine 75 mcg Tablet 75 mcg PO DAILY Qty: 30 0RF diazepam 10 mg tablet 10 mg PO QID PRN (Reason: anxiety) Qty: 112 0RF dextroamphetamine-amphetamine [Adderall] 20 mg tablet 20 mg PO 1200 Qty: 21 0RF Rx Instructions: Partial Fill upon patient request. dextroamphetamine-amphetamine [Adderall XR] 30 mg capsule,extended release 24hr 30 mg PO QAM Qty: 21 0RF Rx Instructions: Partial Fill upon patient request. gabapentin 600 mg tablet 600 mg PO BEDTIME Qty: 15 1RF acetaminophen [Tylenol] 325 mg capsule 650 mg PO QID PRN (Reason: pain) Qty: 240 0RF diphenhydramine HCl [Benadryl] 25 mg capsule 50 mg PO BEDTIME PRN (Reason: sleep) Qty: 60 0RF dextroamphetamine-amphetamine [Adderall XR] 30 mg capsule,extended release 24hr 30 mg PO QAM Qty: 30 0RF Rx Instructions: Partial Fill upon patient request. dextroamphetamine-amphetamine [Adderall] 20 mg tablet 20 mg PO .noon Qty: 30 0RF Rx Instructions: Partial Fill upon patient request. diazepam [Valium] 10 mg tablet 10 mg PO QID PRN (Reason: anxiety) Qty: 28 3RF folic acid 1 mg tablet 1 mg PO DAILY Qty: 30 0RF gabapentin 600 mg tablet 600 mg PO BEDTIME Qty: 30 0RF hydrocortisone 1 % cream 1 appl topical BID PRN (Reason: itching) Qty: 28.4 0RF lithium carbonate 450 mg tablet extended release 900 mg PO BEDTIME Qty: 60 0RF olanzapine 10 mg tablet 10 mg PO BID Qty: 60 0RF propranolol 20 mg tablet 20 mg PO TID Qty: 90 0RF Rx Instructions: 25 mg three times per day. propranolol 10 mg tablet 5 mg PO TID Qty: 55 0RF Rx Instructions: 25 mg three times per day. trazodone 50 mg tablet 50 mg PO BEDTIME PRN (Reason: sleep) Qty: 30 0RF levothyroxine 75 mcg capsule 75 mcg PO DAILY Qty: 30 0RF Interventions: ED Discharge Assessment Last Done: 04/15/23 13:44 Discharge Date/Time: 04/15/23 13:44
[2023-04-15 09:49] LABS: Appearance Urine Clear; Color Urine Yellow; Glucose Urine UA Negative (Negative); Leukocyte Esterase Urine Negative (Negative); Nitrite Urine Negative (Negative); PH 8.5 (5.0-9.0); Urine Blood Negative (Negative); Urine Ketones Negative (Negative); Urine Protein Negative (Neg-Trace)
[2023-04-15 09:51] LABS: Bacteria Urine None Seen (None Seen); Hyaline Casts Urine 0-2 /LPF (0-2); RBC Urine 0-2 /HPF (0-2); WBC Urine 0-5 /HPF (0-5)
[2023-04-15] MEDS: 0.9 % Sodium Chloride 1,000 ML 999 ML IV ×2 (10:39→12:15)
[2023-04-15] MEDS: ondansetron HCL 4 MG/2 ML VIAL IVPUSH (10:39)
[2023-04-15] MEDS: diphenhydrAMINE HCL 50 MG/ML VIAL IVPUSH (10:39)
[2023-04-15] MEDS: Ketorolac Tromethamine 30 MG/ML VIAL IVPUSH (10:39)
[2023-04-15 12:01] VITALS: BP 125/80; PULSE 87; RESP 14; O2SAT 98
[2023-04-15] MEDS: Morphine Sulfate 4 MG/ML CARTRIDGE IVPUSH (12:15)
--- NOTE | 2023-04-15 12:25 | PC.NURSE ---
PO challenging patient. reporting improvement in symptoms, pain down to approx a 6. medicated per the MAR for pain, second liter of fluids infusing
== END 2023-04-15 13:44 | disposition home or self-care (01) ==
PROVIDERS: Emergency Provider Emergency Medicine Emergency Medical Services; PCP Registered Nurse
DX: G43.909 Migraine, unspecified, not intractable, without status migrainosus (principal); R11.2 Nausea with vomiting, unspecified; Z79.899 Other long term (current) drug therapy
CPT/HCPCS: 36415; 80053; 81001; 83690; 85027; 96361; 96374; 96375; 99284; 99285; J1200; J1885; J2270; J2405

== ENCOUNTER 2023-04-21 09:37 | Emergency (ER) | payer MEDICAID, SELFPAY ==
[2023-04-21] VITALS (7 sets, daily range): BP systolic 90–148; BP diastolic 45–94; PULSE 64–84; RESP 14–18; TEMP 36.9; O2SAT 99–100; BMI 28.5
--- NOTE | ~2023-04-21 | CT_ITS ---
EXAMINATION: CT ABDOMEN AND PELVIS WITH CONTRAST CLINICAL INFORMATION: Abdominal pain. Leukocytosis. COMPARISON: Right upper quadrant ultrasound 04/21/2023 TECHNIQUE: Multidetector volumetric images were obtained from the superior aspect of the liver through the pubic symphysis following administration 85 mL of Omnipaque 350 intravenous contrast. Sagittal and coronal reformatted images were obtained on the technologist's workstation. Oral contrast: No This CT examination was performed using dose optimization techniques as appropriate, variously including the following: *Automated exposure control *Adjustment of mA and/or kV according to patient size (this includes techniques or standardized protocols for targeted exams where dose is matched to indication/reason for exam; i.e. extremities or head) *Use of iterative reconstruction technique DLP: 730 mGy-cm FINDINGS: LUNG BASES: The visualized lung bases are unremarkable. LIVER, GALLBLADDER, AND BILIARY TREE: The liver is 3 attenuation. No biliary ductal dilatation is present. The gallbladder is unremarkable with no evidence of radiopaque gallstones, gallbladder wall thickening, or obvious pericholecystic inflammatory changes. PANCREAS: Mild fatty infiltration. No ductal dilatation. SPLEEN: Unremarkable. ADRENAL GLANDS: Unremarkable. KIDNEYS AND URETERS: The kidneys are symmetric in size and enhancement. 1.1 x 1.1 x 1.0 cm right upper pole lesion. 7 mm right upper pole hypodensity too small to characterize. No hydronephrosis, hydroureter, or calculi seen. No perinephric stranding. BLADDER: Decompressed. GASTROINTESTINAL TRACT: Hiatal hernia. Small and large bowel loops are of normal caliber. No small bowel obstruction. Appendix is surgically absent. ABDOMINAL WALL: No significant hernia is appreciated. LYMPH NODES: No bulky abdominal or pelvic lymphadenopathy. VASCULAR: Normal caliber abdominal aorta. PELVIC VISCERA: Involuting corpus luteum in the left ovary. Thickened endometrium. OSSEOUS STRUCTURES: No destructive bone lesions. CT/CT abdomen pelvis w IV con IMPRESSION: Indeterminate 1.1 x 1.1 x 1.0 cm right upper pole renal lesion. A small neoplasm cannot be excluded. Urologic consultation and short interval follow-up is recommended. Hepatic steatosis.
--- NOTE | ~2023-04-21 | US_ITS ---
EXAMINATION: US ABDOMEN LIMITED CLINICAL INFORMATION: Concern for pancreatitis. COMPARISON: None available. TECHNIQUE: Real-time imaging of the right upper quadrant abdominal viscera. FINDINGS: PANCREAS: Normal. No pancreatic ductal dilatation is seen. No peripancreatic fluid is seen. No pancreatic masses or calcifications are seen. LIVER: The liver is normal in size. The liver contour is normal. There is diffuse increased liver parenchymal echogenicity, consistent with hepatic steatosis. No focal hepatic lesion. There is no intrahepatic biliary duct dilatation seen. GALLBLADDER: Normal. The gallbladder is physiologically distended without evidence of stones, sludge, polyps, wall thickening or pericholecystic fluid. COMMON BILE DUCT: Normal in caliber measuring 0.3 cm in diameter. RIGHT KIDNEY: Normal. No hydronephrosis. No renal calculi or focal parenchymal lesions. The kidney measures 12.2 cm in maximum dimension. FREE FLUID: None. US/US abdomen limited IMPRESSION: 1. No evidence of pancreatitis. 2. Hepatic steatosis.
--- NOTE | ~2023-04-21 | XR_ITS ---
EXAMINATION: XR CHEST CLINICAL INFORMATION: Weakness COMPARISON: 03/23/2023 TECHNIQUE: Frontal view of the chest was obtained. FINDINGS: No acute finding. The lung barros are felt to be grossly clear. The cardiac silhouette is within normal limits. The hilar regions are comparable No effusion. XR/XR chest 1V IMPRESSION: No acute finding
--- NOTE | 2023-04-21 10:25 | ED.GENADULT ---
HPI - General Adult General Chief complaint: General Medical Stated complaint: headache/ locked jaw Time Seen by Provider: 04/21/23 10:05 Source: patient Mode of arrival: ambulatory Limitations: no limitations History of Present Illness HPI narrative: Patient is a 47-year-old female with history of mast cell disease, Lyme disease, ADHD, anxiety, Ebstein Marrero infection, PTSD presenting to the emergency department with complaint of frontal headache, nausea, vomiting, diarrhea, weakness and right-sided jaw pain for the past 3 days. Patient states she has been unable to keep any of her regularly prescribed medications down due to nausea and vomiting. States she has decreased her p.o. intake to decrease her vomiting, last vomited clear fluid around 3:00 a.m.. Denies fevers. Denies chest pain or shortness of breath. Denies abdominal pain. Reports urinary frequency but also reports history of interstitial cystitis and states frequency is not abnormal for her. Denies back or flank pain. States that she was seen here recently for similar symptoms but did not have diarrhea at that time. Reports photophobia, denies double vision or other visual changes. States that she typically takes Valium for her jaw tightness which she has also been unable to keep down due to vomiting. States that she is currently in the middle of a divorce and has had increased stress related to this which she feels is exacerbating her symptoms. Reports history of intermittent pancreatic swelling, denies history of alcohol use and states the inflammation has been attributed to her auto immune diseases. 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 MD complaint: Headache, nausea, vomiting, diarrhea Onset (ago): day(s) Location: head Radiation: non-radiation Severity: severe Quality: aching Pain Consistency: constant Relieving factors: none Associated symptoms: nausea/vomiting Treatments prior to arrival: none (Unable to tolerate her p.o. medications) Related Data Previous Rx's Medication Instructions Recorded acetaminophen 325 mg tablet 650 mg (2 x 325 mg) PO Q6H PRN 02/15/23 Headache/Pain Mild Scale (1-3) #60 tabs diphenhydramine HCl 25 mg capsule 50 mg (2 x 25 mg) PO Q4H PRN 02/15/23 Itching #60 caps folic acid 1 mg tablet 1 mg PO DAILY #30 tabs 02/15/23 gabapentin 300 mg capsule 600 mg (2 x 300 mg) PO BEDTIME #21 02/15/23 caps hydrocortisone 1 % topical cream 1 appl topical BID PRN rash on 02/15/23 legs #1 applicator levothyroxine 75 mcg tablet 75 mcg PO DAILY #30 tabs 02/15/23 lithium carbonate 450 mg 900 mg (2 x 450 mg) PO BEDTIME #42 02/15/23 tablet,extended release tabs olanzapine 10 mg tablet 10 mg PO BID #42 tabs 02/15/23 propranolol 10 mg tablet 25 mg PO TID #63 tabs 02/15/23 trazodone 50 mg tablet 25 mg (1/2 x 50 mg) PO BEDTIME PRN 02/15/23 insomnia #21 tabs dextroamphetamine-amphetamine 20 20 mg PO 1200 #21 tabs 02/16/23 mg tablet (Adderall) dextroamphetamine-amphetamine ER 30 mg PO QAM #21 caps 02/16/23 30 mg 24hr capsule,extend release (Adderall XR) diazepam 10 mg tablet 10 mg PO QID PRN anxiety #112 tabs 02/16/23 gabapentin 600 mg tablet 600 mg PO BEDTIME #15 tabs 02/25/23 acetaminophen 325 mg capsule 650 mg (2 x 325 mg) PO QID PRN 03/07/23 (Tylenol) pain #240 caps dextroamphetamine-amphetamine 20 20 mg PO .noon #30 tabs 03/07/23 mg tablet (Adderall) dextroamphetamine-amphetamine ER 30 mg PO QAM #30 caps 03/07/23 30 mg 24hr capsule,extend release (Adderall XR) diazepam 10 mg tablet (Valium) 10 mg PO QID PRN anxiety #28 tabs 03/07/23 diphenhydramine HCl 25 mg capsule 50 mg (2 x 25 mg) PO BEDTIME PRN 03/07/23 (Benadryl) sleep #60 caps folic acid 1 mg tablet 1 mg PO DAILY #30 tabs 03/07/23 gabapentin 600 mg tablet 600 mg PO BEDTIME #30 tabs 03/07/23 hydrocortisone 1 % topical cream 1 appl topical BID PRN itching 03/07/23 #28.4 grams levothyroxine 75 mcg capsule 75 mcg PO DAILY #30 caps 03/07/23 lithium carbonate 450 mg 900 mg (2 x 450 mg) PO BEDTIME #60 03/07/23 tablet,extended release tabs olanzapine 10 mg tablet 10 mg PO BID #60 tabs 03/07/23 propranolol 10 mg tablet 5 mg (1/2 x 10 mg) PO TID #55 tabs 03/07/23 propranolol 20 mg tablet 20 mg PO TID #90 tabs 03/07/23 trazodone 50 mg tablet 50 mg PO BEDTIME PRN sleep #30 tabs 03/07/23 ondansetron 4 mg disintegrating 4 mg PO Q6-8H PRN nausea and 04/15/23 tablet vomiting #10 tabs ondansetron 4 mg disintegrating 4 mg PO Q8H PRN nausea and 04/21/23 tablet vomiting #20 tabs Allergies Allergy/AdvReac Type Severity Reaction Status Date / Time gluten AdvReac Gastrointestinal Verified 03/23/23 09:33 Upset lorazepam [From Ativan] AdvReac Headache Verified 03/23/23 09:33 wheat AdvReac Gastrointestinal Verified 03/23/23 09:33 Upset Review of Systems Review of Systems: As per HPI. Yes all other systems are reviewed and are negative Constitutional: Constitutional: Reports as per HPI [facility] Past Medical History Medical History ADHD Anxiety Ethan Marrero infection Lyme disease Mast cell activation [place] exposure PTSD (post-traumatic stress disorder) Social History Social History Household Members: Family and Children Housing: House Do you presently have visiting nurse or other home services: No Unable to assess alcohol history related to: Refusing to respond Alcohol intake: never Patient Tobacco Use Status: Never used Tobacco Smoked in Last 30 Days: No Second Hand Smoke Exposure: No Use of substances other than those prescribed or required for medical reasons: No Advance Directives: No Advance Directives Information Provided: No service: No Sexual orientation: Straight/Heterosexual Physical Exam ED Vital Signs: Vital Signs - 24 hr 04/21/23 09:39 04/21/23 12:24 04/21/23 13:22 Temperature 98.4 F Pulse Rate 84 64 Respiratory Rate 18 14 Blood Pressure 148/94 H 108/68 102/57 L Pulse Oximetry 99 100 Oxygen Delivery Method Room Air Room Air 04/21/23 15:36 04/21/23 16:54 04/21/23 17:03 Temperature Pulse Rate 72 75 Respiratory Rate 18 18 Blood Pressure 103/53 L 90/45 L 98/62 Pulse Oximetry 100 100 Oxygen Delivery Method Room Air Room Air 04/21/23 18:37 Temperature Pulse Rate 71 Respiratory Rate 18 Blood Pressure 97/48 L Pulse Oximetry 99 Oxygen Delivery Method Room Air BMI result Body Mass Index 28.5 Vital signs have been reviewed and appear to be correct. Blood pressure elevated. Heart rate normal. Respiratory rate normal. Temperature normal. Oxygen saturation normal. Const General: cooperative, healthy appearing and no acute distress Orientation/consciousness: oriented to person, oriented to place, oriented to time and patient oriented x3 Limitations: no limitations HENMT Other: Patient able to fully open jaw, no trismus Head: Yes normocephalic and Yes atraumatic Ears: external ears normal, mastoids normal bilaterally and TM abnormal erythematous bilateral; not bulging, not with effusion and with no fluid behind the TM General nose exam: Normal external nose present Face and sinus: Yes face symmetric Mouth: Normal oral and palatal mucosa present, lip normal, tongue normal, oropharynx normal and moist mucous membranes Throat: Yes posterior oropharynx normal and Yes uvula midline Eyes Pupils: Equal, round and reactive pupils present Neck Neck: Yes normal visual inspection, Yes full ROM, Yes no lymphadenopathy, Yes no meningeal signs and Yes supple Resp Effort & Inspection: normal respiratory effort and able to speak in complete sentences Auscultation: clear to auscultation bilaterally Cardio Rate: regular rate Rhythm: regular rhythm Heart sounds: S1 normal heart sound present and S2 normal heart sound present GI Palpation (GI): Soft to palpation and nontender Auscultation: normoactive bowel sounds General: Yes no CVA tenderness Back/Spine/Pelvis Back: no CVA tenderness Skin General skin exam: elasticity normal and turgor normal Neuro General: oriented to person, oriented to place, oriented to time, patient oriented x3, tone normal, moves all extremities, Normal light touch and pain sensation, no meningeal signs, no focal motor deficits, CN's II-XI intact bilaterally and deep tendon reflexes 2+ bilaterally Cranial nerves: Yes Equal, round and reactive pupils present Cognition (Neuro): normal cognition Motor exam (neuro): 5/5 motor strength present throughout Sensory Exam: Normal double simultaneous stimulation for sensation Extrem General: Yes full ROM, Yes no pedal edema and Yes no calf tenderness Psych Mental Status: mental status grossly normal Affect: Anxious affect present Attitude: cooperative Thought process: Normal thought process present NIH Stroke Scale Internal: Initial- Upon Arrival Time: 10:51 Level of Consciousness: Alert Level of Consciousness Questions: Answers both questions correctly Level of Consciousness Commands: Performs both tasks correctly Best Gaze: Normal Visual: No visual loss Facial Palsy: Normal Motor Arm (Right): No drift Motor Arm (Left): No drift Motor Leg (Right): No drift Motor Leg (Left): No drift Limb Ataxia: Absent Sensory: Normal Best Language: No aphasia Dysarthia: Normal Extinction and Inattention: No abnormality Score: 0 Course Reevaluation(s) Reevaluation #1: Patient received in sign-out at change of shift pending CT scan disposition. CT of the abdomen pelvis is still pending. Patient is requesting pain medication. She will be given fentanyl 50 mcg IV she has a soft blood pressure in the should affect her blood pressure less than more pain. I also ordered a L of IV fluid both Time: 17:00 Reevaluation #2: Patient's CT scan shows a small right renal pole lesion. No other concerning acute findings. Patient is medically cleared for care to evaluation. CT findings were discussed with the patient and she was given a urologic referral Time: 18:36 Reevaluation #3: Patient is medically cleared from care to evaluation. She is not suicidal but is requesting care to evaluation for anxiety and depression Time: 20:12 Additional Reevaluation(s): Patient now requesting discharge, she is not suicidal, she is stable for discharge Medications Administered Discontinued Medications Generic Name Dose Route Start Last Admin Trade Name Venkatesh PRN Reason Stop Dose Admin Diazepam 2.5 mg 04/21/23 10:40 04/21/23 11:02 Diazepam 10 Mg/2 Ml Cartridge IVPUSH 04/21/23 10:41 2.5 mg STAT STA Administration Fentanyl 50 mcg 04/21/23 16:58 04/21/23 17:14 Fentanyl Citrate/Pf 100 Mcg/2 Ml Vial IVPUSH 04/21/23 16:59 50 mcg ONCE ONE Administration Protocol Sodium Chloride 1,000 mls @ 999 mls/hr 04/21/23 10:45 04/21/23 13:23 Ns IV 04/21/23 11:45 Infused .Q1H1M CHARLIE Infusion Sodium Chloride 1,000 mls @ 999 mls/hr 04/21/23 17:00 04/21/23 19:21 Ns IV 04/21/23 18:00 Infused .Q1H1M CHARLEI Infusion Iohexol 85 ml 04/21/23 15:55 04/21/23 15:56 Iohexol 350 Mg/Ml 100 Ml Infus..Btl IV 04/21/23 15:56 85 ml ONCE ONE Administration Ketorolac Tromethamine 15 mg 04/21/23 10:40 04/21/23 11:02 Ketorolac Tromethamine 15 Mg/Ml Vial IVPUSH 04/21/23 10:41 15 mg ONCE ONE Administration Metoclopramide HCl 10 mg 04/21/23 10:40 04/21/23 11:02 Metoclopramide Hcl 10 Mg/2 Ml Vial IVPUSH 04/21/23 10:41 10 mg ONCE ONE Administration Ondansetron HCl 4 mg 04/21/23 16:58 04/21/23 17:15 Ondansetron Hcl 4 Mg/2 Ml Vial IVPUSH 04/21/23 16:59 4 mg ONCE ONE Administration Medical Decision Making Medical Decision Making MDM Narrative: Patient is a 47-year-old female with history of mast cell disease, Lyme disease, ADHD, anxiety, Ebstein Marrero infection, PTSD presenting to the emergency department with complaint of frontal headache, nausea, vomiting, diarrhea, weakness and right-sided jaw pain for the past 3 days. On exam patient is awake, A+Ox3, BP mildly elevated, VS otherwise WNL, afebrile, normal neurological exam without focal deficits, physical exam findings as above. Given reported symptoms and physical exam findings, initial differential includes migraine, gastroenteritis, COVID, flu, UTI, dehydration, electrolyte abnormality. Labs notable for leukocytosis of 14.4 with left shift, no anemia, mild hyponatremia, significantly elevated lipase is compared to 6 days prior. Will add amylase, ESR, CRP, abdominal ultrasound. Swabs for flu and COVID both negative. X-ray chest without any acute findings. Abdominal ultrasound is without evidence of pancreatitis, hepatic steatosis noted. My interpretation is in agreement with the radiologist's interpretation. No elevation of ESR, CRP, amylase mildly elevated. Will add triglyceride level to assess for hypertriglyceridemia as cause, however, no elevated in glucose so feel this is less likely. Possibly due to viral infection. Patient tolerating PO fluids at this time. She is reporting significant anxiety and is specifically requesting to speak with the CARE team. Case discussed with Dr. Rosas who recommends CT abdomen/pelvis, referral to CARE team if able to be medically cleared. Patient signed out to SHARON Lyons pending results of CT scan. Lab Data 04/21/23 10:50 04/21/23 10:50 Labs: Lab Results 04/21/23 04/21/23 04/21/23 Range/Units 10:48 10:50 14:55 WBC 14.4 H (4.8-10.8) X10*3/uL RBC 4.68 (4.20-5.50) X10*6/uL Hgb 12.0 (12.0-16.0) g/dl Hct 38.5 (37.0-47.0) % MCV 82.3 (80.0-98.0) fL MCH 25.6 L (27.0-33.0) pg MCHC 31.2 (31.0-35.0) g/dl RDW 14.8 (11.0-16.0) % Plt Count 443 H (160-400) X10*3/uL MPV 8.8 L (9.4-12.3) fL Immature Gran % (Auto) 0.6 H (0.0-0.4) % Neut % (Auto) 84.0 H (45-73) % Lymph % (Auto) 7.8 L (20-40) % [place] % (Auto) 4.1 (2-11) % Eos % (Auto) 2.9 (0-4) % Baso % (Auto) 0.6 (0-2) % Lymph # (Auto) 1.1 L (1.2-4.9) X10*3/uL [place] # (Auto) 0.6 (0.1-1.2) X10*3/uL Eos # (Auto) 0.4 (0.0-0.4) X10*3/uL Baso # (Auto) 0.1 (0.0-0.2) X10*3/uL Abs Immat Gran (auto) 0.09 H (0.00-0.03) X10*3/uL Absolute Neuts (auto) 12.1 H (2.0-8.3) x10*3/uL Absolute Nucleated RBC 0.000 (0.0-0.012) X10*3/uL Nucleated RBC % (auto) 0.0 (0.0-0.2) /100WBC ESR 12 (0-20) MM/HR Sodium 133 L (135-145) mmol/L Potassium 3.7 (3.3-5.1) mmol/L Chloride 103 (96-108) mmol/L Carbon Dioxide 22 (22-29) mmol/L Anion Gap 12 (12-20) BUN 8 L (9-16) mg/dL Creatinine 0.90 (0.5-1.4) mg/dL Estim Creat Clear Calc 99.1 Estimated GFR > 60 Random Glucose 96 (60-115) mg/dL Calcium 10.3 H D (8.4-10.2) mg/dL Magnesium 2.4 (1.6-2.6) mg/dL Total Bilirubin 0.3 (0.0-1.0) mg/dL AST 16 (5-31) U/L ALT 10 (0-31) U/L Alkaline Phosphatase 75 (39-117) U/L Troponin I High Sens < 2.7 (<3.5-17.0) ng/L C-Reactive Protein 0.35 (< or = 0.50) mg/dL Total Protein 8.5 H (6.5-8.0) g/dL Albumin 4.8 (3.5-5.0) g/dL Triglycerides 135 (<150) mg/dL Amylase 139 H (28-100) U/L Lipase 129 H (8-78) U/L Beta HCG, Quant < 2 mIU/mL Urine Color Urine Appearance Urine pH (5.0-9.0) Ur Specific [place] (1.005-1.025) Urine Protein (Neg-Trace) mg/dL Urine Glucose (UA) (Negative) mg/dL Urine Ketones (Negative) mg/dL Urine Blood (Negative) Urine Nitrite (Negative) Ur Leukocyte Esterase (Negative) Urine RBC (0-2) /HPF Urine WBC (0-5) /HPF Ur Squamous Epith Cells (0-2) /HPF Urine Bacteria (None Seen) Hyaline Casts (0-2) /LPF Urine Opiates Screen (Not Detect) Urine Fentanyl Screen (Not Detect) Ur Barbiturates Screen (Not Detect) Ur Phencyclidine Scrn (Not Detect) Ur Amphetamines Screen (Not Detect) U Benzodiazepines Scrn (Not Detect) Urine Cocaine Screen (Not Detect) U Marijuana (THC) Screen (Not Detect) COVID-19 (JINA) Negative (Negative) COVID-19 Clin Com See Note Influenza Type A (KEILY) Negative (Negative) Influenza Type B (KEILY) Negative (Negative) Influenza A & B Note See Note 04/21/23 Range/Units 19:18 WBC (4.8-10.8) X10*3/uL RBC (4.20-5.50) X10*6/uL Hgb (12.0-16.0) g/dl Hct (37.0-47.0) % MCV (80.0-98.0) fL MCH (27.0-33.0) pg MCHC (31.0-35.0) g/dl RDW (11.0-16.0) % Plt Count (160-400) X10*3/uL MPV (9.4-12.3) fL Immature Gran % (Auto) (0.0-0.4) % Neut % (Auto) (45-73) % Lymph % (Auto) (20-40) % [place] % (Auto) (2-11) % Eos % (Auto) (0-4) % Baso % (Auto) (0-2) % Lymph # (Auto) (1.2-4.9) X10*3/uL [place] # (Auto) (0.1-1.2) X10*3/uL Eos # (Auto) (0.0-0.4) X10*3/uL Baso # (Auto) (0.0-0.2) X10*3/uL Abs Immat Gran (auto) (0.00-0.03) X10*3/uL Absolute Neuts (auto) (2.0-8.3) x10*3/uL Absolute Nucleated RBC (0.0-0.012) X10*3/uL Nucleated RBC % (auto) (0.0-0.2) /100WBC ESR (0-20) MM/HR Sodium (135-145) mmol/L Potassium (3.3-5.1) mmol/L Chloride (96-108) mmol/L Carbon Dioxide (22-29) mmol/L Anion Gap (12-20) BUN (9-16) mg/dL Creatinine (0.5-1.4) mg/dL Estim Creat Clear Calc Estimated GFR Random Glucose (60-115) mg/dL Calcium (8.4-10.2) mg/dL Magnesium (1.6-2.6) mg/dL Total Bilirubin (0.0-1.0) mg/dL AST (5-31) U/L ALT (0-31) U/L Alkaline Phosphatase (39-117) U/L Troponin I High Sens (<3.5-17.0) ng/L C-Reactive Protein (< or = 0.50) mg/dL Total Protein (6.5-8.0) g/dL Albumin (3.5-5.0) g/dL Triglycerides (<150) mg/dL Amylase (28-100) U/L Lipase (8-78) U/L Beta HCG, Quant mIU/mL Urine Color Yellow Urine Appearance Clear Urine pH 7.5 (5.0-9.0) Ur Specific [place] >= 1.030 H (1.005-1.025) Urine Protein Negative (Neg-Trace) mg/dL Urine Glucose (UA) Negative (Negative) mg/dL Urine Ketones Negative (Negative) mg/dL Urine Blood Large (3+) H (Negative) Urine Nitrite Negative (Negative) Ur Leukocyte Esterase Negative (Negative) Urine RBC 11-20 H (0-2) /HPF Urine WBC 0-5 (0-5) /HPF Ur Squamous Epith Cells 3-5 (0-2) /HPF Urine Bacteria Trace (None Seen) Hyaline Casts 0-2 (0-2) /LPF Urine Opiates Screen Not Detected (Not Detect) Urine Fentanyl Screen Not Detected (Not Detect) Ur Barbiturates Screen Not Detected (Not Detect) Ur Phencyclidine Scrn Not Detected (Not Detect) Ur Amphetamines Screen Not Detected (Not Detect) U Benzodiazepines Scrn POSITIVE H (Not Detect) Urine Cocaine Screen Not Detected (Not Detect) U Marijuana (THC) Screen Not Detected (Not Detect) COVID-19 (JINA) (Negative) COVID-19 Clin Com Influenza Type A (KEILY) (Negative) Influenza Type B (KEILY) (Negative) Influenza A & B Note Independent Interpretation I performed an independent interpretation of an: Plain X-Ray Interpretation: No acute abnormalities on chest x-ray Radiology Impression Discussion of test interpretation with radiology: I have reviewed the radiologist's reading. Radiologist Impression: XR/XR chest 1V IMPRESSION: No acute finding Discharge Plan Discharge Clinical Impression: Acute pancreatitis, Kidney lesion, Anxiety Patient Disposition: Home, Self-Care Instructions: Pancreatitis (ED) Additional Instructions: Your workup in the emergency department today was significant for mild pancreatitis. You should have a liquid diet until your pain resolves This can be soup, broth, any juices or water Avoid greasy, spicy foods Your CT scan also showed a lesion on your right kidney that requires follow-up with a urology. Call tomorrow to make an appointment Return for new or worsening symptoms Prescriptions: New ondansetron 4 mg tablet,disintegrating 4 mg PO Q8H PRN (Reason: nausea and vomiting) Qty: 20 0RF No Action ondansetron 4 mg tablet,disintegrating 4 mg PO Q6-8H PRN (Reason: nausea and vomiting) Qty: 10 0RF acetaminophen 325 mg Tablet 650 mg PO Q6H PRN (Reason: Headache/Pain Mild Scale (1-3)) Qty: 60 0RF olanzapine 10 mg Tablet 10 mg PO BID Qty: 42 0RF lithium carbonate 450 mg Tablet Extended Release 900 mg PO BEDTIME Qty: 42 0RF propranolol 10 mg Tablet 25 mg PO TID Qty: 63 0RF Protocol: Hold for SBP/HR < HOLD for SBP < : 90 HOLD for HR < : 60 hydrocortisone 1 % Cream 1 appl topical BID PRN (Reason: rash on legs) Qty: 1 0RF Protocol: Apply to: Apply to: legs, affected areas diphenhydramine HCl 25 mg Capsule 50 mg PO Q4H PRN (Reason: Itching) Qty: 60 0RF gabapentin 300 mg Capsule 600 mg PO BEDTIME Qty: 21 0RF folic acid 1 mg Tablet 1 mg PO DAILY Qty: 30 0RF trazodone 50 mg tablet 25 mg PO BEDTIME PRN (Reason: insomnia) Qty: 21 0RF levothyroxine 75 mcg Tablet 75 mcg PO DAILY Qty: 30 0RF diazepam 10 mg tablet 10 mg PO QID PRN (Reason: anxiety) Qty: 112 0RF dextroamphetamine-amphetamine [Adderall] 20 mg tablet 20 mg PO 1200 Qty: 21 0RF Rx Instructions: Partial Fill upon patient request. dextroamphetamine-amphetamine [Adderall XR] 30 mg capsule,extended release 24hr 30 mg PO QAM Qty: 21 0RF Rx Instructions: Partial Fill upon patient request. gabapentin 600 mg tablet 600 mg PO BEDTIME Qty: 15 1RF acetaminophen [Tylenol] 325 mg capsule 650 mg PO QID PRN (Reason: pain) Qty: 240 0RF diphenhydramine HCl [Benadryl] 25 mg capsule 50 mg PO BEDTIME PRN (Reason: sleep) Qty: 60 0RF dextroamphetamine-amphetamine [Adderall XR] 30 mg capsule,extended release 24hr 30 mg PO QAM Qty: 30 0RF Rx Instructions: Partial Fill upon patient request. dextroamphetamine-amphetamine [Adderall] 20 mg tablet 20 mg PO .noon Qty: 30 0RF Rx Instructions: Partial Fill upon patient request. diazepam [Valium] 10 mg tablet 10 mg PO QID PRN (Reason: anxiety) Qty: 28 3RF folic acid 1 mg tablet 1 mg PO DAILY Qty: 30 0RF gabapentin 600 mg tablet 600 mg PO BEDTIME Qty: 30 0RF hydrocortisone 1 % cream 1 appl topical BID PRN (Reason: itching) Qty: 28.4 0RF lithium carbonate 450 mg tablet extended release 900 mg PO BEDTIME Qty: 60 0RF olanzapine 10 mg tablet 10 mg PO BID Qty: 60 0RF propranolol 20 mg tablet 20 mg PO TID Qty: 90 0RF Rx Instructions: 25 mg three times per day. propranolol 10 mg tablet 5 mg PO TID Qty: 55 0RF Rx Instructions: 25 mg three times per day. trazodone 50 mg tablet 50 mg PO BEDTIME PRN (Reason: sleep) Qty: 30 0RF levothyroxine 75 mcg capsule 75 mcg PO DAILY Qty: 30 0RF Referrals: Scout Daniel MD [Physician] - (renal lesion. r/o neoplasm)
[2023-04-21 10:56] LABS: MANUAL DIFF FLAG NO
[2023-04-21 10:59] LABS: Basophils Absolute Auto 0.1 X10*3/uL (0.0-0.2); Basophils Percent Auto 0.6 % (0-2); Eosinophils Absolute Auto 0.4 X10*3/uL (0.0-0.4); Eosinophils Percent Auto 2.9 % (0-4); Hematocrit 38.5 % (37.0-47.0); Imm Gran Abs Auto 0.09 X10*3/uL (0.00-0.03); Imm Gran Pct Auto 0.6 % (0.0-0.4); Lymphocytes Absolute Auto 1.1 X10*3/uL (1.2-4.9); Lymphocytes Percent Auto 7.8 % (20-40); Mean Corpuscular HGB Conc 31.2 g/dl (31.0-35.0); Mean Corpuscular Hemoglobin 25.6 pg (27.0-33.0); Mean Corpuscular Volume 82.3 fL (80.0-98.0); Mean Platelet Volume 8.8 fL (9.4-12.3); Monocytes Absolute Auto 0.6 X10*3/uL (0.1-1.2); Monocytes Percent Auto 4.1 % (2-11); Neutrophils Absolute Auto 12.1 x10*3/uL (2.0-8.3); Platelet Count 443 X10*3/uL (160-400); Red Blood Count 4.68 X10*6/uL (4.20-5.50); Red Cell Distribution Width 14.8 % (11.0-16.0); White Blood Count 14.4 X10*3/uL (4.8-10.8)
[2023-04-21] MEDS: Ketorolac Tromethamine 15 MG/ML VIAL IVPUSH (11:02)
[2023-04-21] MEDS: Metoclopramide HCl 10 MG/2 ML VIAL IVPUSH (11:02)
[2023-04-21] MEDS: diazePAM 10 MG/2 ML CARTRIDGE 2.5 MG IVPUSH (11:02)
[2023-04-21] MEDS: 0.9 % Sodium Chloride 1,000 ML 999 ML IV ×2 (11:07→17:14)
--- NOTE | 2023-04-21 11:16 | PC.NURSE ---
pt a&ox3. respirations even and unlabored. pt reports nausea, vomiting and lock jaw for 3 days.. pt reports one episode of vomiting at 3am this morning with one episode of diarrhea. pt denies blood in vomit and diarrhea. pt reports hard time eating due to lock jaw. pt has a history of lyme disease that she believes may be causing her symptoms. pt abdomen soft non tender to touch, hypoactive bowel sounds in all 4 quadrants. pt normal sinus on tele. provider at bedside discussing pt care.
[2023-04-21 11:19] LABS: COVID-19 Test Negative (Negative); IDNOW Serial# 08D9AD1C; IDNOW Serial# BCCEAD1C
[2023-04-21 11:20] LABS: Influenza A Negative (Negative); Influenza B2 Negative (Negative)
[2023-04-21 11:24] LABS: Alanine Aminotransferase 10 U/L (0-31); Albumin Level 4.8 g/dL (3.5-5.0); Alkaline Phosphatase 75 U/L (39-117); Anion Gap 12 (12-20); Aspartate Amino Transferase 16 U/L (5-31); Bilirubin Total 0.3 mg/dL (0.0-1.0); Blood Urea Nitrogen 8 mg/dL (9-16); Calcium 10.3 mg/dL (8.4-10.2); Carbon Dioxide 22 mmol/L (22-29); Chloride 103 mmol/L (96-108); Creatinine Clr Calc Pharmacy 99.1; Estimated Glomerular Filt Rate > 60; Glucose Random 96 mg/dL (60-115); Lipase 129 U/L (8-78); Magnesium 2.4 mg/dL (1.6-2.6); Potassium 3.7 mmol/L (3.3-5.1); Sodium 133 mmol/L (135-145); Total Protein 8.5 g/dL (6.5-8.0)
[2023-04-21 11:30] LABS: HCG Quantitative < 2 mIU/mL
[2023-04-21 13:16] LABS: C Reactive Protein 0.35 mg/dL (< or = 0.50)
[2023-04-21 13:32] LABS: Erythrocyte Sedimentation Rate 12 MM/HR (0-20)
[2023-04-21 13:38] LABS: Amylase 139 U/L (28-100)
[2023-04-21 15:26] LABS: Triglycerides 135 mg/dL (<150)
[2023-04-21 15:29] LABS: Troponin-I High Sensitivity < 2.7 ng/L (<3.5-17.0)
[2023-04-21] MEDS: iohexoL 350 MG/ML 100 ML INFUS..BTL 85 ML IV (15:56)
[2023-04-21] MEDS: fentaNYL citrate/PF 100 MCG/2 ML VIAL 50 MCG IVPUSH (17:14)
[2023-04-21] MEDS: ondansetron HCL 4 MG/2 ML VIAL IVPUSH (17:15)
[2023-04-21 19:28] LABS: Appearance Urine Clear; Color Urine Yellow; Glucose Urine UA Negative (Negative); Leukocyte Esterase Urine Negative (Negative); Nitrite Urine Negative (Negative); PH 7.5 (5.0-9.0); Specific Gravity - Urine >= 1.030 (1.005-1.025); UMIC TRIGGER UACC YES; Urine Blood Large (3+) (Negative); Urine Ketones Negative (Negative); Urine Protein Negative (Neg-Trace)
--- NOTE | 2023-04-21 19:36 | PC.NURSE ---
care assumed of patient at this time; pt has questions in regards to her medical condition. explained that at this time she is cleared medically and is waiting for care team. pt now on the phone with her father to request that he come to pick her up.
[2023-04-21 19:44] LABS: Bacteria Urine Trace (None Seen); Hyaline Casts Urine 0-2 /LPF (0-2); WBC Urine 0-5 /HPF (0-5)
[2023-04-21 20:02] LABS: Amphetamine Screen Urine Not Detected (Not Detect); Barbiturates, Urine Not Detected (Not Detect); Benzodiazepines Screen Urine POSITIVE (Not Detect); Cannabinoid Screen Urine Not Detected (Not Detect); Cocaine Screen Urine Not Detected (Not Detect); Fentanyl, urine Not Detected (Not Detect); Opiate Screen Urine Not Detected (Not Detect); Phencyclidine Screen Urine Not Detected (Not Detect)
--- NOTE | 2023-04-21 20:24 | MHC.CARE ---
CARE Team consulted with Pt. After discussing with her she presented as wanting a full assessment. It was explained that Pt will be put on list for referral.
--- NOTE | 2023-04-21 20:45 | MHC.CARE ---
CARE TEAM went to meet with patient. She refused assessment and requested to be discharged. She expressed frustration secondary to not getting her medications, I have been waiting all day for my medications and they are ignoring me . Patient denied suicidal and homicidal ideation, plan, or intent. She was provided with [facility] and [facility]/crisis information and agreed to return to ED if symptoms increase. Worker was present and agreed to transport patient home.
== END 2023-04-21 20:44 | disposition home or self-care (01) ==
PROVIDERS: Physician Assistant; Registered Nurse Emergency; Emergency Provider Emergency Medicine
DX: K85.90 Acute pancreatitis without necrosis or infection, unspecified (principal); N28.9 Disorder of kidney and ureter, unspecified; F41.9 Anxiety disorder, unspecified; F32.A Depression, unspecified; Z20.822 Contact with and (suspected) exposure to COVID-19; R29.700 NIHSS score 0; Z72.89 Other problems related to lifestyle; Z63.5 Disruption of family by separation and divorce; Z79.899 Other long term (current) drug therapy
CPT/HCPCS: 36415; 71045; 74177; 76705; 80053; 80307; 81001; 82150; 83690; 83735; 84478; 84484; 84702; 85025; 85652; 86140; 87502; 87635; 96361; 96374; 96375; 99284; J1885; J2405; J2765; J3010; J3360; Q9967

== ENCOUNTER 2023-04-23 05:24 | Inpatient (IN) | payer MEDICAID, SELFPAY ==
[2023-04-23] VITALS (7 sets, daily range): BP systolic 110–156; BP diastolic 63–89; PULSE 58–80; RESP 16–18; TEMP 36.3–37; O2SAT 97–100; BMI 28.9; BMI 29.3
[2023-04-23] MEDS: Butalb/Acetamin/Caff 50/325/40 TABLET 1 TAB PO (06:20)
[2023-04-23 06:31] LABS: Lithium 2.18 mmol/L (0.60-1.20)
[2023-04-23 06:36] LABS: COVID-19 Test Negative (Negative); IDNOW Serial# 08D9AD1C; IDNOW Serial# BCCEAD1C; Influenza A Negative (Negative); Influenza B2 Negative (Negative)
--- NOTE | 2023-04-23 06:40 | ED.GENADULT ---
HPI - General Adult General Chief complaint: Dyspnea Stated complaint: Shortness of breath Time Seen by Provider: 04/23/23 05:35 Source: patient and family (Mother) Mode of arrival: EMS History of Present Illness HPI narrative: 47-year-old female who [facility] during divorce proceedings. Patient has complaints of headache, shortness of breath without reports of fever or chills and additional information provided by the mother is that patient called them at 04:00 this morning and she noticed that the patient was vomiting. Related Data Previous Rx's Medication Instructions Recorded acetaminophen 325 mg tablet 650 mg (2 x 325 mg) PO Q6H PRN 02/15/23 Headache/Pain Mild Scale (1-3) #60 tabs diphenhydramine HCl 25 mg capsule 50 mg (2 x 25 mg) PO Q4H PRN 02/15/23 Itching #60 caps folic acid 1 mg tablet 1 mg PO DAILY #30 tabs 02/15/23 gabapentin 300 mg capsule 600 mg (2 x 300 mg) PO BEDTIME #21 02/15/23 caps hydrocortisone 1 % topical cream 1 appl topical BID PRN rash on 02/15/23 legs #1 applicator levothyroxine 75 mcg tablet 75 mcg PO DAILY #30 tabs 02/15/23 lithium carbonate 450 mg 900 mg (2 x 450 mg) PO BEDTIME #42 02/15/23 tablet,extended release tabs olanzapine 10 mg tablet 10 mg PO BID #42 tabs 02/15/23 propranolol 10 mg tablet 25 mg PO TID #63 tabs 02/15/23 trazodone 50 mg tablet 25 mg (1/2 x 50 mg) PO BEDTIME PRN 02/15/23 insomnia #21 tabs dextroamphetamine-amphetamine 20 20 mg PO 1200 #21 tabs 02/16/23 mg tablet (Adderall) dextroamphetamine-amphetamine ER 30 mg PO QAM #21 caps 02/16/23 30 mg 24hr capsule,extend release (Adderall XR) diazepam 10 mg tablet 10 mg PO QID PRN anxiety #112 tabs 02/16/23 gabapentin 600 mg tablet 600 mg PO BEDTIME #15 tabs 02/25/23 acetaminophen 325 mg capsule 650 mg (2 x 325 mg) PO QID PRN 03/07/23 (Tylenol) pain #240 caps dextroamphetamine-amphetamine 20 20 mg PO .noon #30 tabs 03/07/23 mg tablet (Adderall) dextroamphetamine-amphetamine ER 30 mg PO QAM #30 caps 03/07/23 30 mg 24hr capsule,extend release (Adderall XR) diazepam 10 mg tablet (Valium) 10 mg PO QID PRN anxiety #28 tabs 03/07/23 diphenhydramine HCl 25 mg capsule 50 mg (2 x 25 mg) PO BEDTIME PRN 03/07/23 (Benadryl) sleep #60 caps folic acid 1 mg tablet 1 mg PO DAILY #30 tabs 03/07/23 gabapentin 600 mg tablet 600 mg PO BEDTIME #30 tabs 03/07/23 hydrocortisone 1 % topical cream 1 appl topical BID PRN itching 03/07/23 #28.4 grams levothyroxine 75 mcg capsule 75 mcg PO DAILY #30 caps 03/07/23 lithium carbonate 450 mg 900 mg (2 x 450 mg) PO BEDTIME #60 03/07/23 tablet,extended release tabs olanzapine 10 mg tablet 10 mg PO BID #60 tabs 03/07/23 propranolol 10 mg tablet 5 mg (1/2 x 10 mg) PO TID #55 tabs 03/07/23 propranolol 20 mg tablet 20 mg PO TID #90 tabs 03/07/23 trazodone 50 mg tablet 50 mg PO BEDTIME PRN sleep #30 tabs 03/07/23 ondansetron 4 mg disintegrating 4 mg PO Q6-8H PRN nausea and 04/15/23 tablet vomiting #10 tabs ondansetron 4 mg disintegrating 4 mg PO Q8H PRN nausea and 04/21/23 tablet vomiting #20 tabs Allergies Allergy/AdvReac Type Severity Reaction Status Date / Time gluten AdvReac Gastrointestinal Verified 03/23/23 09:33 Upset lorazepam [From Ativan] AdvReac Headache Verified 03/23/23 09:33 wheat AdvReac Gastrointestinal Verified 03/23/23 09:33 Upset Review of Systems Review of Systems: Pertinent positives and negatives as stated in HPI [facility] Past Medical History Source: nursing notes reviewed Medical History [place] exposure Ethan Marrero infection ADHD Anxiety PTSD (post-traumatic stress disorder) Mast cell activation Lyme disease Social History Social History Household Members: Family and Children Housing: House Do you presently have visiting nurse or other home services: No Unable to assess alcohol history related to: Refusing to respond Alcohol intake: never Patient Tobacco Use Status: Never used Tobacco Smoked in Last 30 Days: No Second Hand Smoke Exposure: No Use of substances other than those prescribed or required for medical reasons: No Advance Directives: No Advance Directives Information Provided: Yes service: No Sexual orientation: Straight/Heterosexual Physical Exam ED Vital Signs: Vital Signs - 24 hr 04/23/23 05:28 04/23/23 05:35 Temperature 98.3 F Pulse Rate 69 67 Respiratory Rate 18 18 Blood Pressure 136/83 117/79 Pulse Oximetry 100 99 Oxygen Delivery Method Room Air Room Air BMI result Body Mass Index 28.9 VITAL SIGNS: Reviewed. GENERAL: Well developed, well nourished, in no acute distress. HEAD: Normocephalic/atraumatic EYES: PERRLA, EOMI EARS: Ext canals without abnormality NOSE: Nares patent bilateral OROPHARYNX: no oral lesions noted, posterior pharynx clear, there are noted tongue and mouth movements NECK: Supple, no adenopathy LUNGS: Normal breath sounds. No adventitious sounds or accessory muscle use. SpO2<100> CARDIOVASCULAR: Regular rate and rhythm without noted murmurs ABDOMEN: Soft, non-tender, non-distended with bowel sounds. MUSCULOSKELETAL: No tenderness, deformities, or effusions noted on gross inspection. EXTREMITIES: No cyanosis, clubbing or edema. SKIN: Inspection of the skin reveals no rashes NEUROLOGIC: Alert and oriented x 3. Strength and sensation to light touch were grossly intact x 4, cranial nerves 2-12 are grossly intact.. Medications Administered Discontinued Medications Generic Name Dose Route Start Last Admin Trade Name Freq PRN Reason Stop Dose Admin Acetaminophen/Butalbital/Caffeine 1 tab 04/23/23 06:02 04/23/23 06:20 Butalb/Acetamin/Caff 50/325/40 Tablet PO 04/23/23 06:03 1 tab ONCE ONE Administration Medical Decision Making Medical Decision Making MDM Narrative: 47-year-old female with history and clinical presentation of having been seen here 2 days ago and diagnosed with pancreatitis. When I asked the mother for the medication list I noticed that patient is on Zyprexa as well as lithium, which were started on 03/07 during patient's psychiatric admission. At that time patient was also started on propanolol 10 mg. Collateral information provided by the mother is that she has not seen her daughter since last month due to court restraints but states that she has been sleeping more frequently, and there do appear to be new changes. I had concerns over possible lithium derangements due to noticing the medication prescription as well as the mother's information regarding the nausea and vomiting. Although initially I was concerned for possible dyskinesia it appears that patient takes Benadryl at baseline for mast cell activation condition and the mother providing information that the appearance of the patient's jaw and tongue are consistent with her Lyme condition which is currently being managed by a specialist in [place] with yearly visits. 0611: [place] level is returned at 2.18. Basic lab work as well as IV placement and IV fluids were immediately ordered. Patient is not suicidal. Signed out to Dr Rubio - labs, admission Differential Diagnosis Differential Diagnoses: The differential diagnosis associated with the presentation includes Please see the discussion above Admission/Observation Consideration of admission/observation: Escalation of care including admission/observation considered Please see the discussion above Lab Data 04/23/23 06:11 Labs: Lab Results 04/23/23 Range/Units 06:11 Sodium 133 L (135-145) mmol/L Potassium 4.2 (3.3-5.1) mmol/L Chloride 105 (96-108) mmol/L Carbon Dioxide 19 L (22-29) mmol/L Anion Gap 13 (12-20) BUN 3 L (9-16) mg/dL Creatinine 0.73 (0.5-1.4) mg/dL Estim Creat Clear Calc 123.0 Estimated GFR > 60 Random Glucose 120 H (60-115) mg/dL Calcium 9.7 (8.4-10.2) mg/dL Total Bilirubin 0.4 (0.0-1.0) mg/dL AST 12 (5-31) U/L ALT 8 (0-31) U/L Alkaline Phosphatase 86 (39-117) U/L Total Protein 7.6 (6.5-8.0) g/dL Albumin 4.5 (3.5-5.0) g/dL [place] 2.18 H* (0.60-1.20) mmol/L COVID-19 (JINA) Negative (Negative) COVID-19 Clin Com See Note Influenza Type A (KEILY) Negative (Negative) Influenza Type B (KEILY) Negative (Negative) Influenza A & B Note See Note Critical Care Time Critical Care Time Critical Care Time: Yes Total Critical Care Time: 30 Attestation: I personally attest to this time spent taking care of the patient. Discharge Plan Discharge Clinical Impression: Nausea & vomiting, [place] toxicity Prescriptions: No Action ondansetron 4 mg tablet,disintegrating 4 mg PO Q6-8H PRN (Reason: nausea and vomiting) Qty: 10 0RF ondansetron 4 mg tablet,disintegrating 4 mg PO Q8H PRN (Reason: nausea and vomiting) Qty: 20 0RF acetaminophen 325 mg Tablet 650 mg PO Q6H PRN (Reason: Headache/Pain Mild Scale (1-3)) Qty: 60 0RF olanzapine 10 mg Tablet 10 mg PO BID Qty: 42 0RF lithium carbonate 450 mg Tablet Extended Release 900 mg PO BEDTIME Qty: 42 0RF propranolol 10 mg Tablet 25 mg PO TID Qty: 63 0RF Protocol: Hold for SBP/HR < HOLD for SBP < : 90 HOLD for HR < : 60 hydrocortisone 1 % Cream 1 appl topical BID PRN (Reason: rash on legs) Qty: 1 0RF Protocol: Apply to: Apply to: legs, affected areas diphenhydramine HCl 25 mg Capsule 50 mg PO Q4H PRN (Reason: Itching) Qty: 60 0RF gabapentin 300 mg Capsule 600 mg PO BEDTIME Qty: 21 0RF folic acid 1 mg Tablet 1 mg PO DAILY Qty: 30 0RF trazodone 50 mg tablet 25 mg PO BEDTIME PRN (Reason: insomnia) Qty: 21 0RF levothyroxine 75 mcg Tablet 75 mcg PO DAILY Qty: 30 0RF diazepam 10 mg tablet 10 mg PO QID PRN (Reason: anxiety) Qty: 112 0RF dextroamphetamine-amphetamine [Adderall] 20 mg tablet 20 mg PO 1200 Qty: 21 0RF Rx Instructions: Partial Fill upon patient request. dextroamphetamine-amphetamine [Adderall XR] 30 mg capsule,extended release 24hr 30 mg PO QAM Qty: 21 0RF Rx Instructions: Partial Fill upon patient request. gabapentin 600 mg tablet 600 mg PO BEDTIME Qty: 15 1RF acetaminophen [Tylenol] 325 mg capsule 650 mg PO QID PRN (Reason: pain) Qty: 240 0RF diphenhydramine HCl [Benadryl] 25 mg capsule 50 mg PO BEDTIME PRN (Reason: sleep) Qty: 60 0RF dextroamphetamine-amphetamine [Adderall XR] 30 mg capsule,extended release 24hr 30 mg PO QAM Qty: 30 0RF Rx Instructions: Partial Fill upon patient request. dextroamphetamine-amphetamine [Adderall] 20 mg tablet 20 mg PO .noon Qty: 30 0RF Rx Instructions: Partial Fill upon patient request. diazepam [Valium] 10 mg tablet 10 mg PO QID PRN (Reason: anxiety) Qty: 28 3RF folic acid 1 mg tablet 1 mg PO DAILY Qty: 30 0RF gabapentin 600 mg tablet 600 mg PO BEDTIME Qty: 30 0RF hydrocortisone 1 % cream 1 appl topical BID PRN (Reason: itching) Qty: 28.4 0RF lithium carbonate 450 mg tablet extended release 900 mg PO BEDTIME Qty: 60 0RF olanzapine 10 mg tablet 10 mg PO BID Qty: 60 0RF propranolol 20 mg tablet 20 mg PO TID Qty: 90 0RF Rx Instructions: 25 mg three times per day. propranolol 10 mg tablet 5 mg PO TID Qty: 55 0RF Rx Instructions: 25 mg three times per day. trazodone 50 mg tablet 50 mg PO BEDTIME PRN (Reason: sleep) Qty: 30 0RF levothyroxine 75 mcg capsule 75 mcg PO DAILY Qty: 30 0RF
--- NOTE | 2023-04-23 06:41 | ECG_ITS ---
Test Reason : LITHIUM TOXICITY Blood Pressure : / mmHG Vent. Rate : 062 BPM Atrial Rate : 062 BPM P-R Int : 166 ms QRS Dur : 092 ms QT Int : 344 ms P-R-T Axes : 057 043 061 degrees QTc Int : 349 ms Normal sinus rhythm with sinus arrhythmia Nonspecific ST and T wave abnormality Abnormal ECG When compared with ECG of 23-MAR-2023 11:11, QT has shortened Referred By: Mima Rich Electronically Signed By:ARUNA QUEEN
[2023-04-23 06:58] LABS: Alanine Aminotransferase 8 U/L (0-31); Albumin Level 4.5 g/dL (3.5-5.0); Alkaline Phosphatase 86 U/L (39-117); Anion Gap 13 (12-20); Aspartate Amino Transferase 12 U/L (5-31); Bilirubin Total 0.4 mg/dL (0.0-1.0); Blood Urea Nitrogen 3 mg/dL (9-16); Calcium 9.7 mg/dL (8.4-10.2); Carbon Dioxide 19 mmol/L (22-29); Chloride 105 mmol/L (96-108); Estimated Glomerular Filt Rate > 60; Glucose Random 120 mg/dL (60-115); Potassium 4.2 mmol/L (3.3-5.1); Sodium 133 mmol/L (135-145); Total Protein 7.6 g/dL (6.5-8.0)
[2023-04-23 07:07] LABS: Acetaminophen LAB < 17 mcg/mL (<30); Salicylate < 5.0 mg/dL (15-30)
[2023-04-23] MEDS: 0.9 % Sodium Chloride 2,000 ML 999 ML IV (07:13)
--- NOTE | 2023-04-23 07:14 | P.HPHOSP_ITS ---
History of Present Illness Date of Service: 04/23/23 Chief Complaint: lithium toxicity 47/F with PTSD, bipolar, ADHD, anxiety who is currently [facility] undergoing divorce and presened from a [facility] with c/o sob, headache and reportedly has vomitted. Her work up has been unremarkable other than toxic lithium level > 2. She had been seen in the ED at least 4 prior times under similar condition. Review of Systems 2 Review of Systems: Gen: no fever Resp: + sob, no cough CV: no chest, no [place], no leg edema GI: No n/v, no abd pain Neuro: No confusion Yes all other systems are reviewed and are negative [facility] Medical History [place] exposure Ethan Marrero infection ADHD Anxiety PTSD (post-traumatic stress disorder) Mast cell activation Lyme disease Social History Household Members: None Housing: Other Housing Other:: [facility] Do you presently have visiting nurse or other home services: No Unable to assess alcohol history related to: Refusing to respond Alcohol intake: never Patient Tobacco Use Status: Never used Tobacco Smoked in Last 30 Days: No Second Hand Smoke Exposure: No Use of substances other than those prescribed or required for medical reasons: No Currently Displaying Signs/Symptoms of Drug Intoxication Withdrawal: No Advance Directives: No Advance Directives Information Provided: Yes Do you have thoughts of harming others: None Do you have a plan to hurt others: No Plan Recently lost weight without trying: No Patient : No : No Poor oral hygiene: No service: No Sexual orientation: Straight/Heterosexual Meds Allergies Allergy/AdvReac Type Severity Reaction Status Date / Time gluten AdvReac Gastrointestinal Verified 03/23/23 09:33 Upset lorazepam [From Ativan] AdvReac Headache Verified 03/23/23 09:33 wheat AdvReac Gastrointestinal Verified 03/23/23 09:33 Upset Active Medications: Current Medications Sodium Chloride (Ns) 2,000 mls @ 999 mls/hr IV .Q2H1M CHARLIE Stop: 04/23/23 08:45 Last Admin: 04/23/23 07:13 Dose: 999 mls/hr Home Medications Medication Instructions Recorded Confirmed Last Taken Type dextroamphetamine-amphetamine 30 1 tab PO DAILY@1200 04/23/23 04/23/23 Unknown History mg tablet diphenhydramine HCl 25 mg capsule 50 mg PO BEDTIME 04/23/23 04/23/23 Unknown History (Benadryl) Physical Exam 2 Vital Signs and Narrative: Vital Signs: Last Vital Signs Temp 98.3 F 04/23/23 05:28 Pulse 67 04/23/23 05:35 Resp 18 04/23/23 05:35 BP 117/79 04/23/23 05:35 Pulse Ox 99 04/23/23 05:35 O2 Del Method Room Air 04/23/23 05:35 BMI result Body Mass Index 28.9 Const: Other: Constitutional: Alert, in no distress Mental Status: Oriented to person, place and time. Eyes: Pupils are equal, round and reactive to light. Ear, Nose and Throat: Oropharynx clear, mucous membranes moist. Ears and nose without. Trachea midline. Respiratory: Clear to auscultation. No wheezing, rales or rhonchi. Cardiovascular: S1 S2 regular. No murmurs, rubs or gallops. Gastrointestinal: Abdomen soft, non-tender, non-distended. Normal bowel sounds.? Neurologic: Cranial nerves II-XII grossly intact. No focal neurological deficits. Moves all extremities spontaneously.? Skin: No rashes or lesions.? Musculoskeletal: No cyanosis or clubbing. Psychiatric: Normal mood and affect? Results Labs 04/24/23 05:36 04/23/23 06:11 Labs: Laboratory Results - last 24 hr 04/23/23 06:11 Anion Gap 13 Estim Creat Clear Calc 123.0 Estimated GFR > 60 Random Glucose 120 H Calcium 9.7 Total Bilirubin 0.4 AST 12 ALT 8 Alkaline Phosphatase 86 Total Protein 7.6 Albumin 4.5 Salicylates < 5.0 L Acetaminophen < 17 [place] 2.18 H* COVID-19 (JINA) Negative COVID-19 Clin Com See Note Influenza Type A (KEILY) Negative Influenza Type B (KEILY) Negative Influenza A & B Note See Note Assessment and Plan (1) [place] toxicity: Status: Acute (2) PTSD (post-traumatic stress disorder): Status: Acute (3) Bipolar disorder with psychotic features: Status: Acute Plan 47/F with PTSD, bipolar, ADHD, anxiety who presened w/ sob normal work up but found to have acute lithium toxicity Acute lithium toxicy--IV fluid and monitor level and BMP PTSD, Anxiety, ADHD, Bipolar continue meds other [place]; ask Psych for med management SOB-nl prior xray, nl O2, nl breathing, negative covid likely stress/anxiety related Headache--PRN fiorecet if persists then CT Elevated lipase with probably pancreatitis? [place] induced--no pain, but had some nausea, advnace diet DVT prophylaxis--low risk, ad fredi at least 2 midnight admission for acute lithium toxicity needs IVF and frequent level Time Spent With Patient Time: Total time managing care of this patient today ____ minutes. Quality Stroke Does the patient have a stroke diagnosis?: No VTE Prior VTE?: No VTE Risk Level:: Medical - moderate - high VTE Device Contraindication: Treatment Not Indicated VTE Drug Contraindication: Treatment Not Indicated
[2023-04-23] MEDS: Acetaminophen 325 MG TABLET 975 MG PO (07:27)
[2023-04-23] MEDS: Ketorolac Tromethamine 30 MG/ML VIAL 15 MG IVPUSH (07:27)
[2023-04-23 07:49] LABS: MANUAL DIFF FLAG NO
[2023-04-23 07:52] LABS: Basophils Absolute Auto 0.1 X10*3/uL (0.0-0.2); Basophils Percent Auto 0.5 % (0-2); Eosinophils Absolute Auto 0.5 X10*3/uL (0.0-0.4); Eosinophils Percent Auto 3.9 % (0-4); Hematocrit 32.9 % (37.0-47.0); Hemoglobin 10.4 g/dl (12.0-16.0); Imm Gran Abs Auto 0.07 X10*3/uL (0.00-0.03); Imm Gran Pct Auto 0.5 % (0.0-0.4); Lymphocytes Absolute Auto 1.4 X10*3/uL (1.2-4.9); Lymphocytes Percent Auto 10.6 % (20-40); Mean Corpuscular HGB Conc 31.6 g/dl (31.0-35.0); Mean Corpuscular Hemoglobin 26.2 pg (27.0-33.0); Mean Corpuscular Volume 82.9 fL (80.0-98.0); Mean Platelet Volume 8.7 fL (9.4-12.3); Monocytes Absolute Auto 0.8 X10*3/uL (0.1-1.2); Monocytes Percent Auto 5.9 % (2-11); Neutrophils Absolute Auto 10.3 x10*3/uL (2.0-8.3); Neutrophils Percent Auto 78.6 % (45-73); Platelet Count 372 X10*3/uL (160-400); Red Blood Count 3.97 X10*6/uL (4.20-5.50); Red Cell Distribution Width 14.7 % (11.0-16.0); White Blood Count 13.1 X10*3/uL (4.8-10.8)
[2023-04-23 07:52] LABS: Appearance Urine Hazy; Color Urine Yellow
[2023-04-23 07:53] LABS: Glucose Urine UA Negative (Negative); Leukocyte Esterase Urine Small (1+) (Negative); Nitrite Urine Negative (Negative); UMIC TRIGGER UACC YES; Urine Blood Large (3+) (Negative); Urine Ketones Negative (Negative); Urine Protein 100 (2+) mg/dL (Neg-Trace)
[2023-04-23 07:54] LABS: Bacteria Urine Trace (None Seen); Hyaline Casts Urine 0-2 /LPF (0-2); UACC Culture Trigger YES; WBC Urine 0-5 /HPF (0-5)
--- NOTE | 2023-04-23 08:34 | PC.NURSE ---
pt ambulates well to bathroom, gait balanced and steady
--- NOTE | 2023-04-23 09:11 | PHA.MEDREC ---
Pharmacy Consult ? Medication Reconciliation Pharmacy has completed the medication reconciliation. Spoke to patient
[2023-04-23 09:44] LABS: Lipase 164 U/L (8-78)
[2023-04-23] MEDS: Propranolol HCL 20 MG TABLET PO ×2 (09:49→21:30)
[2023-04-23] MEDS: OLANZapine 10 MG TABLET PO (09:50)
[2023-04-23] MEDS: Dextroamphetamine/Amphetamine XR 10 MG CAP.ER.24H 30 MG PO (09:50)
[2023-04-23] MEDS: Folic Acid 1 MG TABLET PO (09:50)
[2023-04-23] MEDS: Amphetamine Mixed Salts 10 MG TABLET 30 MG PO (12:33)
--- NOTE | 2023-04-23 14:37 | PC.NURSE ---
pt reports facial stiffness feels slightly better, headache has decreased. report given to S3
[2023-04-23] MEDS: 0.9 % Sodium Chloride Flush 3 ML SYRINGE IVFLUSH (16:01)
[2023-04-23] MEDS: Lactated Ringers 1,000 ML 150 ML IVCONT ×2 (16:08→22:32)
[2023-04-23] MEDS: Acetaminophen 325 MG TABLET 650 MG PO (19:59)
[2023-04-23] MEDS: diphenhydrAMINE HCL 25 MG CAPSULE 50 MG PO (21:30)
--- NOTE | 2023-04-23 23:11 | P.CNPS_ITS ---
History of Present Illness Date of Service: 04/23/23 Chief Complaint: [place] toxicity Reason for Consult: lithium toxicity, bipolar disorder, mood disorder, anxiety HPI Narrative: pt known to psychiatry service from admission earlier this summer presented to ED for lithium toxicity. had been experiencing nausea and vomiting, labs showed lithium level over 2. IV fluids started. psychiatry consulted for mgmt of pt's bipolar disorder and lithium toxicity. on interview, pt was calm and cooperative. mental status essentially normal aside from what appeared to be right-sided facial weakness with some dysarthria, which pt attributed to muscle spasm. she correlated the onset of the muscle spasm and associated Sx with the onset of Sx she is now aware are related to lithium toxicity. she believes her right sided facial Sx have been improving as she has received IV fluids. she reported she would prefer to stop the lithium entirely and feels it is not necessary for her. she informed MD she has an appointment with her medications provider on 04/25. she denied any safety concerns and was satisfied with her mental health regimen otherwise. she is agreeable to remain in the hospital overnight to be sure her lithium level subsides and she is medically safe for return to outpatient. Past Psychiatric History: Inpatient: [facility] 2018, 2020 OP: [facility] Medication trials: adderall, xanax, risperidone [facility] Medical History [place] exposure Ethan Marrero infection ADHD Anxiety PTSD (post-traumatic stress disorder) Mast cell activation Lyme disease Diagnostics Vital Signs (24Hr): Vital Signs - 24 hr 04/23/23 05:28 04/23/23 05:35 04/23/23 07:35 Temperature 98.3 F Pulse Rate 69 67 70 Respiratory Rate 18 18 18 Blood Pressure 136/83 117/79 130/76 Pulse Oximetry 100 99 100 Oxygen Delivery Method Room Air Room Air Room Air 04/23/23 10:23 04/23/23 13:15 04/23/23 16:00 Temperature 98.6 F 97.4 F Pulse Rate 58 66 74 Respiratory Rate 16 16 18 Blood Pressure 110/63 115/67 146/89 H Pulse Oximetry 100 100 98 Oxygen Delivery Method Room Air Room Air Room Air 04/23/23 19:14 Temperature 98.5 F Pulse Rate 80 Respiratory Rate 16 Blood Pressure 156/81 H Pulse Oximetry 97 Oxygen Delivery Method Room Air BMI result Body Mass Index 29.3 Labs 04/23/23 07:39 04/23/23 06:11 Labs: Laboratory Results - last 48 hr 04/23/23 04/23/23 04/23/23 06:11 07:29 07:39 WBC 13.1 H RBC 3.97 L Hgb 10.4 L Hct 32.9 L MCV 82.9 MCH 26.2 L MCHC 31.6 RDW 14.7 Plt Count 372 MPV 8.7 L Immature Gran % (Auto) 0.5 H Neut % (Auto) 78.6 H Lymph % (Auto) 10.6 L [place] % (Auto) 5.9 Eos % (Auto) 3.9 Baso % (Auto) 0.5 Lymph # (Auto) 1.4 [place] # (Auto) 0.8 Eos # (Auto) 0.5 H Baso # (Auto) 0.1 Abs Immat Gran (auto) 0.07 H Absolute Neuts (auto) 10.3 H Absolute Nucleated RBC 0.000 Nucleated RBC % (auto) 0.0 Sodium 133 L Potassium 4.2 Chloride 105 Carbon Dioxide 19 L Anion Gap 13 BUN 3 L Creatinine 0.73 Estim Creat Clear Calc 123.0 Estimated GFR > 60 Random Glucose 120 H Calcium 9.7 Total Bilirubin 0.4 AST 12 ALT 8 Alkaline Phosphatase 86 Total Protein 7.6 Albumin 4.5 Lipase 164 H Urine Color Yellow Urine Appearance Hazy Urine pH 7.0 Ur Specific [place] 1.010 Urine Protein 100 (2+) H Urine Glucose (UA) Negative Urine Ketones Negative Urine Blood Large (3+) H Urine Nitrite Negative Ur Leukocyte Esterase Small (1+) H Urine RBC 3-5 H Urine WBC 0-5 Ur Squamous Epith Cells 3-5 Urine Bacteria Trace Hyaline Casts 0-2 Salicylates < 5.0 L Acetaminophen < 17 [place] 2.18 H* COVID-19 (JINA) Negative COVID-19 Clin Com See Note Influenza Type A (KEILY) Negative Influenza Type B (KEILY) Negative Influenza A & B Note See Note Mental Status Exam Mental Status Exam Narrative: calm, cooperative. no PMA/PMR. speech dysarthric with apparent right sided weakness. nml rate, amount, loudness, tone, latency. thoughts linear and logical. affect constricted, normo-intense, non-labile. mood euthymic. denies SI/HI/AVH. Medications Medications Current Medications Acetaminophen (Acetaminophen 325 Mg Tablet) 650 mg PO Q6H PRN PRN Reason: Pain, Mild (Pain Scale 1-3) Last Admin: 04/23/23 19:59 Dose: 650 mg Amphetamine/Dextroamphetamine (Dextroamphetamine/Amphetamine Xr 10 Mg Cap.Er.24h) 30 mg PO DAILY@0900 [facility] Last Admin: 04/23/23 09:50 Dose: 30 mg Amphetamine/Dextroamphetamine (Amphetamine Mixed Salts 10 Mg Tablet) 30 mg PO DAILY@1200 [facility] Last Admin: 04/23/23 12:33 Dose: 30 mg Diazepam (Diazepam 5 Mg Tablet) 10 mg PO QID PRN PRN Reason: anxiety Diphenhydramine HCl (Diphenhydramine Hcl 25 Mg Capsule) 50 mg PO BEDTIME [facility] Last Admin: 04/23/23 21:30 Dose: 50 mg Folic Acid (Folic Acid 1 Mg Tablet) 1 mg PO DAILY [facility] Last Admin: 04/23/23 09:50 Dose: 1 mg Lactated Ringer's (Lr) 1,000 mls @ 150 mls/hr IVCONT .Q6H40M [facility] Last Admin: 04/23/23 22:32 Dose: 150 mls/hr Magnesium Hydroxide (Milk Of Magnesia 30 Ml Oral.Susp) 30 ml PO DAILY PRN PRN Reason: Constipation Melatonin (Melatonin 3 Mg Tablet) 6 mg PO BEDTIME PRN PRN Reason: Insomnia Olanzapine (Olanzapine 10 Mg Tablet) 10 mg PO BID [facility] Last Admin: 04/23/23 21:31 Dose: Not Given Ondansetron HCl (Ondansetron Hcl 4 Mg/2 Ml Vial) 4 mg IVPUSH Q8H PRN PRN Reason: Nausea and Vomiting Propranolol HCl (Propranolol Hcl 20 Mg Tablet) 20 mg PO TID [facility]; Protocol Last Admin: 04/23/23 21:30 Dose: 20 mg Sodium Chloride (0.9 % Sodium Chloride Flush 3 Ml Syringe) 3 ml IVFLUSH QSHIFT [facility] Last Admin: 04/23/23 16:01 Dose: 3 ml Allergies Allergies Allergy/AdvReac Type Severity Reaction Status Date / Time gluten AdvReac Gastrointestinal Verified 03/23/23 09:33 Upset lorazepam [From Ativan] AdvReac Headache Verified 03/23/23 09:33 wheat AdvReac Gastrointestinal Verified 03/23/23 09:33 Upset Assessment & Plan Assessment & Plan (1) [place] toxicity: Status: Acute Code(s): T56.891A - Toxic effect of other metals, accidental (unintentional), initial encounter Plan discontinue lithium. pt is not interested in taking the medication, and its indication is dubious. pt will F/U with her outpt provider 04/25. provide IV fluids until lithium level below 1.0; if pt is asymptomatic at that time she is suitable for discharge home. pt is psychiatrically suitable for outpt F/U; she does not require, and is not presently interested in, inpatient mental health care. leukocytosis likely 2/2 lithium, not pathologic. thank you for consultation in this interesting case. psychiatry will sign off now, please contact use with any further questions. Total time managing care of this patient today __45__ minutes.
[2023-04-24 00:47] VITALS: BP 132/76; PULSE 64; RESP 16; TEMP 37; O2SAT 98
[2023-04-24] MEDS: Lactated Ringers 1,000 ML 150 ML IVCONT ×3 (05:18→18:58)
[2023-04-24 06:20] LABS: Hematocrit 33.6 % (37.0-47.0); Hemoglobin 10.5 g/dl (12.0-16.0); Mean Corpuscular HGB Conc 31.3 g/dl (31.0-35.0); Mean Corpuscular Volume 83.2 fL (80.0-98.0); Mean Platelet Volume 9.2 fL (9.4-12.3); Platelet Count 389 X10*3/uL (160-400); Red Blood Count 4.04 X10*6/uL (4.20-5.50); Red Cell Distribution Width 14.9 % (11.0-16.0); White Blood Count 11.1 X10*3/uL (4.8-10.8)
[2023-04-24 06:27] LABS: Lithium 1.17 mmol/L (0.60-1.20)
[2023-04-24 07:51] VITALS: BP 136/79; PULSE 67; RESP 18; TEMP 35.9; O2SAT 100
[2023-04-24] MEDS: Dextroamphetamine/Amphetamine XR 10 MG CAP.ER.24H 30 MG PO (08:01)
[2023-04-24] MEDS: Propranolol HCL 20 MG TABLET PO ×2 (08:02→13:56)
[2023-04-24] MEDS: Folic Acid 1 MG TABLET PO (08:03)
--- NOTE | 2023-04-24 08:11 | HO.PM.IMPN ---
Subjective Subjective Date of Service: 04/24/23 Interval History: f/u on lithium toxicity, pancreatitis has nausea, but no abdominal pain, lithium is normal Review of Systems nausea Physical Exam Vital Signs: Vital Signs: Last Vital Signs Temp 96.7 F L 04/24/23 07:51 Pulse 67 04/24/23 07:51 Resp 18 04/24/23 07:51 BP 136/79 04/24/23 07:51 Pulse Ox 100 04/24/23 07:51 O2 Del Method Room Air 04/24/23 07:51 BMI result Body Mass Index 29.3 Const: Other: General: AO X 3, no acute distress Resp: CTA bilateral CVS: S1,S2,RRR GI: +BS, NT, no distention Skin: No rash Neuro: motor grossly intact Psych: appropriate affect Objective Data Active Medications Acetaminophen (Acetaminophen 325 Mg Tablet) 650 mg PO Q6H PRN PRN Reason: Pain, Mild (Pain Scale 1-3) Last Admin: 04/23/23 19:59 Dose: 650 mg Documented By: JESSE Amphetamine/Dextroamphetamine (Dextroamphetamine/Amphetamine Xr 10 Mg Cap.Er.24h) 30 mg PO DAILY@0900 [facility] Last Admin: 04/24/23 08:01 Dose: 30 mg Documented By: NENA Amphetamine/Dextroamphetamine (Amphetamine Mixed Salts 10 Mg Tablet) 30 mg PO DAILY@1200 [facility] Last Admin: 04/23/23 12:33 Dose: 30 mg Documented By: GIA Diazepam (Diazepam 5 Mg Tablet) 10 mg PO QID PRN PRN Reason: anxiety Diphenhydramine HCl (Diphenhydramine Hcl 25 Mg Capsule) 50 mg PO BEDTIME [facility] Last Admin: 04/23/23 21:30 Dose: 50 mg Documented By: JESSE Folic Acid (Folic Acid 1 Mg Tablet) 1 mg PO DAILY [facility] Last Admin: 04/24/23 08:03 Dose: 1 mg Documented By: NENA Lactated Ringer's (Lr) 1,000 mls @ 150 mls/hr IVCONT .Q6H40M [facility] Last Admin: 04/24/23 05:18 Dose: 150 mls/hr Documented By: JESSE Magnesium Hydroxide (Milk Of Magnesia 30 Ml Oral.Susp) 30 ml PO DAILY PRN PRN Reason: Constipation Melatonin (Melatonin 3 Mg Tablet) 6 mg PO BEDTIME PRN PRN Reason: Insomnia Olanzapine (Olanzapine 10 Mg Tablet) 10 mg PO BID [facility] Last Admin: 04/24/23 08:03 Dose: Not Given Documented By: NENA Non-Admin Reason: Patient Refused Ondansetron HCl (Ondansetron Hcl 4 Mg/2 Ml Vial) 4 mg IVPUSH Q8H PRN PRN Reason: Nausea and Vomiting Propranolol HCl (Propranolol Hcl 20 Mg Tablet) 20 mg PO TID [facility]; Protocol Last Admin: 04/24/23 08:02 Dose: 20 mg Documented By: NENA Sodium Chloride (0.9 % Sodium Chloride Flush 3 Ml Syringe) 3 ml IVFLUSH QSHIFT [facility] Last Admin: 04/24/23 07:56 Dose: Not Given Documented By: NENA Non-Admin Reason: IV Running Labs 04/24/23 05:36 04/23/23 06:11 Labs: Laboratory Results - last 24 hr 04/23/23 04/24/23 06:11 05:36 MCV 83.2 MCH 26.0 L MCHC 31.3 RDW 14.9 Plt Count 389 MPV 9.2 L Absolute Nucleated RBC 0.000 Nucleated RBC % (auto) 0.0 Lipase 164 H Hold Green Top See Note [place] 1.17 Assessment and Plan (1) Band[place] toxicity: Status: Acute (2) Nausea & vomiting: Status: Acute Plan 47/F with PTSD, bipolar, ADHD, anxiety who presened w/ sob normal work up but found to have acute lithium toxicity Acute lithium toxicy--Bandana is now within normal range, patient doesn't want to take Bandana any more, was evluated by Psych and advised and no med adjustment at this and will follow up with usual therapist upon discharge. PTSD, Anxiety, ADHD, Bipolar continue meds other Bandana; see above for Psych eval SOB-nl prior xray, nl O2, nl breathing, negative covid likely stress/anxiety related Headache--PRN fiorecet if persists then CT Elevated lipase with probably pancreatitis? Bandana induced--no pain, but had some nausea, advnace diet slowly DVT prophylaxis--low risk, ad fredi need for inpt: Bandana toxicity, acute pancreaitis, needing IVF Time Spent With Patient Time: Total time managing care of this patient today ____ minutes. Quality Stroke Does the patient have a stroke diagnosis?: No VTE Prior VTE?: No VTE Risk Level:: Medical - moderate - high VTE Device Contraindication: Treatment Not Indicated VTE Drug Contraindication: Treatment Not Indicated
--- NOTE | 2023-04-24 09:16 | PC.NURSE ---
Pt refused zyprexa .
[2023-04-24] MEDS: Amphetamine Mixed Salts 10 MG TABLET 30 MG PO (12:01)
[2023-04-24 13:54] VITALS: BP 147/77
[2023-04-24 15:48] VITALS: BP 131/71; PULSE 66; RESP 18; TEMP 36.9; O2SAT 98
--- NOTE | 2023-04-24 15:48 | MHC.CM.PN ---
PT REPORTS SHE LIVES IN [facility] IN [place] WHERE THERE IS A CM THAT ASSISTS WITH WHAT SHE NEEDS INCLUDING TRANSPORTATION TO APPTS.. SHE REPORTS SHE IS IN THE MIDDLE OF A DIVORCE AND ALSO HAS NEUROLOGICAL LYME DISEASE SO HAS BEEN STRUGGLING. SHE ALSO REPORTS BEING IN THE US[facility] BECAUSE SHE IS AFRAID OF HER EX-. SHE REPORTS BEING AFRAID THAT SHE WILL NOT HAVE ANY OF THE MEDS SHE NEEDS WHEN SHE DISCHARGES SHE SAYS SHE IS ON SOME PSYCH MEDS BUT FOR MEDICAL REASONS, SHE WAS SEEING A DEMO SPECIALIST BUT THEY DID NOT FEEL COMFORTABLE WITH PRESCRIBING HER MEDS AND FOLLOWING THE FREQUENT LABS NEEDED SHE SAYS SHE HAS TO GO TO COURT TOMORROW AND WORRIES THAT SHE WILL NOT BE ABLE TO SPEAK WITH OUT HER MEDS SHE GETS [facility] AND FAINTED LAST TIME SHE WAS THERE. SHE DID REQUEST CM REACH OUT TO THE PROVIDER WHO SAW IN IN [facility] AND SEE IF THEY WERE ABLE TO ASSIST CM WILL ALSO ATTEMPT TO ARRANGE A NEW PCP APPT AND MAKE A REFERRAL TO [facility] PT DOES NOT WANT TO COMPLETE A HCP UNTIL THE DIVORCE IS COMPLETE DCP: RETURN TO [facility] VIA FAMILY VS SHUTTLE TRANSPORT PT WILL NEED HER MEDS FIGURED OUT BEFORE DC MESSAGE SENT TO [facility] PROVIDER REQUESTED
--- NOTE | 2023-04-24 18:19 | PC.NURSE ---
Pt doing well, plan for d/c tomorrow after labs, ambulating around the unit, independent ADLs.
[2023-04-24 19:54] VITALS: BP 153/93; PULSE 84; RESP 18; TEMP 36.4; O2SAT 98
[2023-04-24] MEDS: diphenhydrAMINE HCL 25 MG CAPSULE 50 MG PO (20:29)
[2023-04-25] MEDS: Lactated Ringers 1,000 ML 150 ML IVCONT ×2 (01:51→08:07)
[2023-04-25] MEDS: diazePAM 5 MG TABLET 10 MG PO ×2 (02:22→11:20)
[2023-04-25 03:32] VITALS: BP 134/75; PULSE 67; RESP 18; TEMP 36.3; O2SAT 99
[2023-04-25 07:47] VITALS: BP 149/90; PULSE 74; RESP 20; TEMP 36.2; O2SAT 99
[2023-04-25] MEDS: Propranolol HCL 20 MG TABLET PO (08:07)
[2023-04-25] MEDS: Folic Acid 1 MG TABLET PO (08:07)
[2023-04-25] MEDS: Dextroamphetamine/Amphetamine XR 10 MG CAP.ER.24H 30 MG PO (08:07)
[2023-04-25 09:31] LABS: Lipase 62 U/L (8-78)
--- NOTE | 2023-04-25 09:51 | PM.DS ---
DS: Providers Provider Date of Service: 04/25/23 Date of admission: 04/23/23 08:41 Primary care physician: ALINE Hameed Consults: 04/23/23 07:25 Consult to Psychiatry Routine Consulting Provider: Psych Covering Reason for consultation: Hypoluxo toxicity, mood desorder, anxiety, bipolar Has provider been notified: No DS: Diagnosis Discharge Diagnosis (1) Hypoluxo toxicity: Status: Resolved (2) Nausea & vomiting: Status: Resolved DS: Summary Hospital Course Hospital Course: Chief Complaint: lithium toxicity 47/F with PTSD, bipolar, ADHD, anxiety who [facility] and [facility] with c/o sob, headache and reportedly has vomitted. Her work up has been unremarkable other than toxic lithium level > 2. She had been seen in the ED at least 4 prior times under similar condition. Hospital course: The patient presented with headache and vomiting and was noted to have lithium toxicity with a level greater than 2; she was also noted to have mild pancreatitis with lipase levels of 129 and 164. She was hydrated with IVF, and her lithium level normalized by the next day. She was treated conservatively for acute pancreatitis with IVF, and her diet slowly advanced; I am unsure if this was also associated with lithium toxicity. Repeat lipase is normal at 62. Psychiatrist Dr. 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 Time Spent with Patient Time attestation: Total time managing care of this patient today ____ minutes. Discharge coordination time: Greater than 30 minutes Quality: Safe Use of Opioids Does Pt have an Active Cancer Diagnosis on the Problem List?: No Quality: Stroke Does the patient have a stroke diagnosis?: No Physical Exam Vital Signs: Vital Signs: Last Vital Signs Temp 97.1 F 04/25/23 07:47 Pulse 74 04/25/23 07:47 Resp 20 04/25/23 07:47 BP 149/90 H 04/25/23 07:47 Pulse Ox 99 04/25/23 07:47 O2 Del Method Room Air 04/25/23 07:47 BMI result Body Mass Index 29.3 DS: Data Data Completed and Pending Labs on day of discharge: Laboratory Results - last 24 hr 04/25/23 04/25/23 08:49 Unknown Hold Purple Top SEE NOTE Lipase 62 Discharge Plan Discharge Anticipated Discharge Date/Time: 04/25/23 09:44 Patient Disposition: Home, Self-Care Discharge Diagnosis: Hypoluxo toxicity, acute pancreatitis Referrals: Bogdan Pearce FNP-BC [Primary Care Provider] - 1 Week Discharge Medications: Continued ondansetron 4 mg tablet,disintegrating 4 mg PO Q6-8H PRN (Reason: nausea and vomiting) Qty: 10 0RF olanzapine 10 mg Tablet 10 mg PO BID Qty: 42 0RF folic acid 1 mg Tablet 1 mg PO DAILY Qty: 30 0RF diazepam 10 mg tablet 10 mg PO QID PRN (Reason: anxiety) Qty: 112 0RF dextroamphetamine-amphetamine [Adderall XR] 30 mg capsule,extended release 24hr 30 mg PO QAM Qty: 21 0RF Rx Instructions: Partial Fill upon patient request. acetaminophen [Tylenol] 325 mg capsule 650 mg PO QID PRN (Reason: pain) Qty: 240 0RF propranolol 20 mg tablet 20 mg PO TID Qty: 90 0RF Rx Instructions: 25 mg three times per day. dextroamphetamine-amphetamine 30 mg tablet 1 tab PO DAILY@1200 diphenhydramine HCl [Benadryl] 25 mg capsule 50 mg PO BEDTIME Rx Instructions: FOR MASS CELL REACTIVATION NOT FOR SLEEP Discontinued lithium carbonate 450 mg Tablet Extended Release 900 mg PO BEDTIME Qty: 42 0RF Discharge Orders: Discharge Order (Routine); Ordered 04/25/23 Ordered By: Enrique Connell Diet: Advance to usual diet Activity on Discharge: As tolerated Stand Alone Forms: Patient Portal Discharge page Care Plan Goals: recovery from lithiam toxicity, pancreatitis Health Concerns: Lithim toxicity acute pancreatitis Plan of Treatment: Stop taking Hypoluxo Follow up with your Doctor in a week Assessment: as above Discharge Date/Time: 04/25/23 16:29
[2023-04-25] MEDS: Amphetamine Mixed Salts 10 MG TABLET 30 MG PO (11:20)
--- NOTE | 2023-04-25 13:24 | MHC.CM.PN ---
PT REPORTS SHE DID HAVE AN APPT TO SEE HER PRIMARY CARE PROVIDER TODAY AND WOULD HAVE GOTTEN HER MEDS REFILLED HOWEVER SHE SAYS THEY CALLED AND CANCELLED THE APPOINTMENT AND SAID THEY WOULD NOT COVER THE MEDS TO GET HER TO THE NEXT APPT. CM CALLED PTS PRIMARY CARE PROVIDERS OFFICE, [facility] [phone] AND SPOKE TO HARMEET WHO REPORTED THEY WERE NOT TRYING TO CANCEL PTS APPT, THEY WERE TRYING TO MOVE IT. SHE SAID THEY DID STILL HAVE AN OPENING TODAY AT 1400 HOURS IF THE PT COULD MAKE IT. CM CHECKED WITH PT AND MOTHER AT BEDSIDE, PTS MOTHER REPORTED SHE WOULD TAKE HER DIRECTLY THERE AND THEY LEFT AT THAT TIME, GIVING THEM 45 MINUTES TO MAKE IT TO THE APPT. PT GIVEN A CM CARD AND ENCOURAGED TO CALL IF THERE WERE ANY PROBLEMS WHEN SHE ARRIVED AT THE PCP OFFICE. PT DISCHARGED HOME TODAY WITH NO SERVICES MOTHER PROVIDED TRANSPORT
--- NOTE | 2023-04-25 14:45 | PC.NURSE ---
This nurse walked by patients room and patient who was accompanied by mother was no longer in room, discharge orders are in for patient, discharge instructions not reviewed with patient, IV was no removed, this nurse attempted to call patient with no answer. Charge nurse Melita reached patient and advised patient to return to floor to review discharge instructions and have IV removed, patient stated she will return. MD notified.
== END 2023-04-25 16:29 | disposition home or self-care (01) | DRG 282 ==
LOC: HO.ED 08:13 → HO.EDOVER 09:47 → HO.S3 14:15
PROVIDERS: Student in an Organized Health Care Education/Training Program; Admitting Provider Internal Medicine; Emergency Provider Emergency Medicine; PCP Registered Nurse; Visit Provider Internal Medicine
DX: K85.30 Drug induced acute pancreatitis without necrosis or infection (principal); F43.10 Post-traumatic stress disorder, unspecified; F90.9 Attention-deficit hyperactivity disorder, unspecified type; Z59.01 Sheltered homelessness; T43.595A Adverse effect of other antipsychotics and neuroleptics, initial encounter; Z20.822 Contact with and (suspected) exposure to COVID-19; Z79.899 Other long term (current) drug therapy
CPT/HCPCS: 36415; 80053; 80143; 80178; 80179; 81001; 83690; 85025; 85027; 87086; 87502; 87635; 93005; 99221; 99285; J1885

== ENCOUNTER → 2023-04-23 08:41 | Outpatient (BNV) | payer MEDICAID, SELFPAY | PROVIDERS: Admitting Provider Internal Medicine; Emergency Provider Emergency Medicine; PCP Registered Nurse; Visit Provider Internal Medicine | DX: T56.891A Toxic effect of other metals, accidental (unintentional), initial encounter (principal); R11.2 Nausea with vomiting, unspecified | CPT/HCPCS: 99223; 99232; 99239 ==

== ENCOUNTER → 2023-04-23 08:41 | Outpatient (BNV) | payer OTHER, SELFPAY | PROVIDERS: Admitting Provider Internal Medicine; Emergency Provider Emergency Medicine; PCP Registered Nurse; Visit Provider Psychiatry & Neurology Psychiatry | DX: T56.891A Toxic effect of other metals, accidental (unintentional), initial encounter (principal) | CPT/HCPCS: 99232 ==

== ENCOUNTER 2023-05-11 12:03 | Emergency (ER) | payer MEDICAID, SELFPAY ==
--- NOTE | 2023-05-11 12:11 | ED_ITS ---
HPI - Psych General Chief Complaint: Psychiatric Symptoms Stated Complaint: Psych med issues-sent by Leigh Moreland Time Seen by Provider: 05/11/23 16:01 Source: patient and family Mode of arrival: ambulatory Limitations: no limitations History of Present Illness HPI Narrative: Patient is a 47-year-old female who presents to the emergency department with her aunt; Abbi, requesting assistance with psychiatric medications. Patient was recently admitted for lithium toxicity, discharge 04/25/2023. Reportedly patient and her aunt were speaking with Leigh Moreland from Psychiatry today, and the patient was under the impression that she was coming to the hospital today to abdomen eating with her to discuss possible anxiety medication as a replacement for the lithium that was discontinued. Upon discharge the lithium was not replaced with any medication in her family including her aunt were wondering whether she should be on something. It a the she states that while waiting in the waiting room today she was able to get a contact with her primary care provider who has scheduled an appointment to see her tomorrow at 11:30 and is going to assume management of her anxiety medications that she has had recent insurance changes due to a divorce, and is no longer able to see her previous provider. At this time she denies suicidal or homicidal ideations. She states that her anxiety has actually been much improved lately despite the lifting being discontinued. She would like to be discharged at this time as she has a follow-up plan with her PCP tomorrow, and again did not intend that she would be a patient in the emergency department today as previously mentioned. Related Data Home Medications Medication Instructions Recorded Confirmed dextroamphetamine-amphetamine 30 1 tab PO DAILY@1200 04/23/23 04/23/23 mg tablet diphenhydramine HCl 25 mg capsule 50 mg PO BEDTIME 04/23/23 04/23/23 (Benadryl) Previous Rx's Medication Instructions Recorded folic acid 1 mg tablet 1 mg PO DAILY #30 tabs 02/15/23 olanzapine 10 mg tablet 10 mg PO BID #42 tabs 02/15/23 dextroamphetamine-amphetamine ER 30 mg PO QAM #21 caps 02/16/23 30 mg 24hr capsule,extend release (Adderall XR) diazepam 10 mg tablet 10 mg PO QID PRN anxiety #112 tabs 02/16/23 acetaminophen 325 mg capsule 650 mg (2 x 325 mg) PO QID PRN 03/07/23 (Tylenol) pain #240 caps propranolol 20 mg tablet 20 mg PO TID #90 tabs 03/07/23 ondansetron 4 mg disintegrating 4 mg PO Q6-8H PRN nausea and 04/15/23 tablet vomiting #10 tabs Allergies Allergy/AdvReac Type Severity Reaction Status Date / Time gluten AdvReac Gastrointestinal Verified 03/23/23 09:33 Upset lithium AdvReac Unknown Verified 05/11/23 12:12 lorazepam [From Ativan] AdvReac Headache Verified 03/23/23 09:33 wheat AdvReac Gastrointestinal Verified 03/23/23 09:33 Upset Review of Systems 2 Review of Systems: Yes all other systems are reviewed and are negative PMFSH Past Medical History Attestation statement: The following information was validated with the patient. Source: old records reviewed Medical History [place] exposure Ethan Marrero infection ADHD Anxiety PTSD (post-traumatic stress disorder) Mast cell activation Lyme disease Social History Social History Household Members: None Housing: Other [facility] Do you presently have visiting nurse or other home services: No Unable to assess alcohol history related to: Refusing to respond Alcohol intake: never Patient Tobacco Use Status: Never used Tobacco Second Hand Smoke Exposure: No Advance Directives: No service: No Sexual orientation: Straight/Heterosexual Physical Exam 2 Vital Signs: Vital Signs: Last Vital Signs Temp 98.3 F 05/11/23 12:13 Pulse 67 05/11/23 12:13 Resp 18 05/11/23 12:13 BP 138/87 05/11/23 12:13 Pulse Ox 96 05/11/23 12:13 O2 Del Method Room Air 05/11/23 12:13 BMI result Body Mass Index 23.5 Appearance: Alert.?Oriented to person, place and time. No acute distress.?Normal affect. Eyes: Pupils equal, round and reactive to light.? ENT: Pharynx normal.?? Neck: Normal inspection.? Neck supple.?? CVS: Heart sounds normal. Normal heart rate and rhythm.? Pulses normal.?? Respiratory: No respiratory distress.? Lung sounds clear to auscultation bilaterally?? Abdomen: Soft and non-tender. Normoactive bowel sounds. ? Skin: Skin warm and dry.? Normal skin color.? Extremities: No lower extremity edema.? Neuro: Moves all extremities spontaneously. Sensation intact bilaterally. CN II- XII intact. No focal neuro deficits. Ambulates with normal steady gait. Course Course Course Narrative: RME - 47 yo female with history of Bipolar disorder, PTSD, ADHD, anxiety, HTN, with recent admission here 04/23 -04/25 for [place] toxicity who presents to the ER for evaluation of worsening anxiety at home off of the lithium. Leigh Moreland on M5 instructed her to come to the ER for medication adjustments. Aunt with her reports they are approaching crisis point again. Patient denies SI and HI. Plan: basic labs, Utox, Psych consult Medical Decision Making Medical Decision Making [facility] Narrative: First contact with patient 16:15 - patient is a 47-year-old female past medical history of PTSD, bipolar disorder presenting to the emergency department with her aunt for evaluation. She had a recent admission 04/23/2023-04/25/2023 for lithium toxicity, her lithium was discontinued and not replaced with an alternative medication. As noted in HPI, she believed she was coming to the hospital after speaking on the phone will be Psychiatry Department to have a meeting with them regarding medication regimen. She alternatively was she registered as an emergency department patient. Wall being in the waiting room she was able to make contact with her primary care provider and schedule an appointment for outpatient follow-up tomorrow morning at 11:30, the and they are going to assume management of her anxiety medications. Nursing staff did reach out to Paige Mccallum from psych, who agrees that patient may be discharged today and follow-up with her PCP tomorrow. She denies any SI/HI. Her feelings of anxiety have much improved. Her aunt is present at bedside whom she resides with and is agreeable with the plan of care. Her physical examination was benign. She has no physical complaints. Vital signs are stable. Differential Diagnosis Differential Diagnoses: The differential diagnosis associated with the presentation includes (Bipolar disorder, anxiety, depression, PTSD) Consult Healthcare Provider Management of the patient was discussed with: Behavioral Health Provider Lab Data [facility] Lab Attestation statement: I reviewed the patient's lab results. Serum labs are consistent with baseline, no acute abnormalities. 05/11/23 14:35 05/11/23 14:35 Labs: Lab Results 05/11/23 05/11/23 Range/Units 14:35 16:20 WBC 10.4 (4.8-10.8) X10*3/uL RBC 4.52 (4.20-5.50) X10*6/uL Hgb 11.6 L (12.0-16.0) g/dl Hct 36.4 L (37.0-47.0) % MCV 80.5 (80.0-98.0) fL MCH 25.7 L (27.0-33.0) pg MCHC 31.9 (31.0-35.0) g/dl RDW 14.7 (11.0-16.0) % Plt Count 714 H D (160-400) X10*3/uL MPV 9.0 L (9.4-12.3) fL Immature Gran % (Auto) 0.3 (0.0-0.4) % Neut % (Auto) 62.4 (45-73) % Lymph % (Auto) 25.3 (20-40) % Sharkey % (Auto) 7.4 (2-11) % Eos % (Auto) 3.7 (0-4) % Baso % (Auto) 0.9 (0-2) % Lymph # (Auto) 2.6 (1.2-4.9) X10*3/uL [place] # (Auto) 0.8 (0.1-1.2) X10*3/uL Eos # (Auto) 0.4 (0.0-0.4) X10*3/uL Baso # (Auto) 0.1 (0.0-0.2) X10*3/uL Abs Immat Gran (auto) 0.03 (0.00-0.03) X10*3/uL Absolute Neuts (auto) 6.5 (2.0-8.3) x10*3/uL Absolute Nucleated RBC 0.000 (0.0-0.012) X10*3/uL Nucleated RBC % (auto) 0.0 (0.0-0.2) /100WBC Sodium 139 (135-145) mmol/L Potassium 3.6 (3.3-5.1) mmol/L Chloride 104 (96-108) mmol/L Carbon Dioxide 24 (22-29) mmol/L Anion Gap 15 (12-20) BUN 5 L (9-16) mg/dL Creatinine 0.75 (0.5-1.4) mg/dL Estim Creat Clear Calc 102.4 Estimated GFR > 60 Random Glucose 101 (60-115) mg/dL Calcium 9.3 (8.4-10.2) mg/dL Magnesium 1.8 (1.6-2.6) mg/dL Total Bilirubin 0.3 (0.0-1.0) mg/dL Direct Bilirubin 0.1 (0.0-0.5) mg/dL AST 20 (5-31) U/L ALT 21 (0-31) U/L Alkaline Phosphatase 73 (39-117) U/L Total Protein 7.8 (6.5-8.0) g/dL Albumin 4.5 (3.5-5.0) g/dL Urine Color Dark Yellow Urine Appearance Cloudy Urine pH 6.0 (5.0-9.0) Ur Specific [place] 1.025 (1.005-1.025) Urine Protein 30 (1+) H (Neg-Trace) mg/dL Urine Glucose (UA) Negative (Negative) mg/dL Urine Ketones Trace (Negative) mg/dL Urine Blood Negative (Negative) Urine Nitrite Negative (Negative) Ur Leukocyte Esterase Negative (Negative) Urine RBC 0-2 (0-2) /HPF Urine WBC 0-5 (0-5) /HPF Ur Squamous Epith Cells 11-20 (0-2) /HPF Urine Bacteria 1+ (None Seen) Hyaline Casts 0-2 (0-2) /LPF Urine Test NEGATIVE (NEGATIVE) Urine Opiates Screen Not Detected (Not Detect) Urine Fentanyl Screen Not Detected (Not Detect) Ur Barbiturates Screen Not Detected (Not Detect) Ur Phencyclidine Scrn Not Detected (Not Detect) Ur Amphetamines Screen POSITIVE H (Not Detect) U Benzodiazepines Scrn POSITIVE H (Not Detect) Urine Cocaine Screen Not Detected (Not Detect) U Marijuana (THC) Screen Not Detected (Not Detect) Ethyl Alcohol < 10 mg/dL Independent Historian Clinical information obtained from an independent historian. History obtained from or confirmed by: Other (Aunt as noted above) External Record Review External record reviewed: Inpatient record Discharge Plan Discharge Clinical Impression: Bipolar disorder Patient Disposition: Home, Self-Care Additional Instructions: Please follow-up with your primary care provider as scheduled for tomorrow morning to discuss medication regimen. You may return back to the emergency department with any new or worsening symptoms or concerns. Prescriptions: No Action ondansetron 4 mg tablet,disintegrating 4 mg PO Q6-8H PRN (Reason: nausea and vomiting) Qty: 10 0RF olanzapine 10 mg Tablet 10 mg PO BID Qty: 42 0RF folic acid 1 mg Tablet 1 mg PO DAILY Qty: 30 0RF diazepam 10 mg tablet 10 mg PO QID PRN (Reason: anxiety) Qty: 112 0RF dextroamphetamine-amphetamine [Adderall XR] 30 mg capsule,extended release 24hr 30 mg PO QAM Qty: 21 0RF Rx Instructions: Partial Fill upon patient request. acetaminophen [Tylenol] 325 mg capsule 650 mg PO QID PRN (Reason: pain) Qty: 240 0RF propranolol 20 mg tablet 20 mg PO TID Qty: 90 0RF Rx Instructions: 25 mg three times per day. dextroamphetamine-amphetamine 30 mg tablet 1 tab PO DAILY@1200 diphenhydramine HCl [Benadryl] 25 mg capsule 50 mg PO BEDTIME Rx Instructions: FOR MASS CELL REACTIVATION NOT FOR SLEEP Referrals: Angel Pearce FNP [Primary Care Provider] - Interventions: [place]-Suicide Risk Severity Scale Last Done: 05/11/23 16:30 Discharge Date/Time: 05/11/23 16:43
[2023-05-11 12:13] VITALS: BP 138/87; PULSE 67; RESP 18; TEMP 36.8; O2SAT 96; BMI 23.5
[2023-05-11 14:39] LABS: MANUAL DIFF FLAG NO
[2023-05-11 14:40] LABS: Basophils Absolute Auto 0.1 X10*3/uL (0.0-0.2); Basophils Percent Auto 0.9 % (0-2); Eosinophils Absolute Auto 0.4 X10*3/uL (0.0-0.4); Eosinophils Percent Auto 3.7 % (0-4); Hematocrit 36.4 % (37.0-47.0); Hemoglobin 11.6 g/dl (12.0-16.0); Imm Gran Abs Auto 0.03 X10*3/uL (0.00-0.03); Imm Gran Pct Auto 0.3 % (0.0-0.4); Lymphocytes Absolute Auto 2.6 X10*3/uL (1.2-4.9); Lymphocytes Percent Auto 25.3 % (20-40); Mean Corpuscular HGB Conc 31.9 g/dl (31.0-35.0); Mean Corpuscular Hemoglobin 25.7 pg (27.0-33.0); Mean Corpuscular Volume 80.5 fL (80.0-98.0); Monocytes Absolute Auto 0.8 X10*3/uL (0.1-1.2); Monocytes Percent Auto 7.4 % (2-11); Neutrophils Absolute Auto 6.5 x10*3/uL (2.0-8.3); Neutrophils Percent Auto 62.4 % (45-73); Red Blood Count 4.52 X10*6/uL (4.20-5.50); Red Cell Distribution Width 14.7 % (11.0-16.0); White Blood Count 10.4 X10*3/uL (4.8-10.8)
[2023-05-11 14:46] LABS: Platelet Count 714 X10*3/uL (160-400)
[2023-05-11 14:52] LABS: Ethanol < 10 mg/dL
[2023-05-11 14:54] LABS: Alanine Aminotransferase 21 U/L (0-31); Albumin Level 4.5 g/dL (3.5-5.0); Alkaline Phosphatase 73 U/L (39-117); Anion Gap 15 (12-20); Aspartate Amino Transferase 20 U/L (5-31); Bilirubin Direct 0.1 mg/dL (0.0-0.5); Bilirubin Total 0.3 mg/dL (0.0-1.0); Blood Urea Nitrogen 5 mg/dL (9-16); Calcium 9.3 mg/dL (8.4-10.2); Carbon Dioxide 24 mmol/L (22-29); Chloride 104 mmol/L (96-108); Creatinine Clr Calc Pharmacy 102.4; Estimated Glomerular Filt Rate > 60; Glucose Random 101 mg/dL (60-115); Magnesium 1.8 mg/dL (1.6-2.6); Potassium 3.6 mmol/L (3.3-5.1); Sodium 139 mmol/L (135-145); Total Protein 7.8 g/dL (6.5-8.0)
[2023-05-11 16:30] LABS: Appearance Urine Cloudy; Color Urine Dark Yellow; Glucose Urine UA Negative (Negative); Leukocyte Esterase Urine Negative (Negative); Nitrite Urine Negative (Negative); Specific Gravity - Urine 1.025 (1.005-1.025); UMIC TRIGGER UACC YES; UPreg QC Valid YES; Urine Blood Negative (Negative); Urine Ketones Trace mg/dL (Negative); Urine Pregnancy NEGATIVE (NEGATIVE); Urine Protein 30 (1+) mg/dL (Neg-Trace)
[2023-05-11 16:35] LABS: Amphetamine Screen Urine POSITIVE (Not Detect); Barbiturates, Urine Not Detected (Not Detect); Benzodiazepines Screen Urine POSITIVE (Not Detect); Cannabinoid Screen Urine Not Detected (Not Detect); Cocaine Screen Urine Not Detected (Not Detect); Fentanyl, urine Not Detected (Not Detect); Opiate Screen Urine Not Detected (Not Detect); Phencyclidine Screen Urine Not Detected (Not Detect)
[2023-05-11 16:39] LABS: Bacteria Urine 1+ (None Seen); Hyaline Casts Urine 0-2 /LPF (0-2); RBC Urine 0-2 /HPF (0-2); WBC Urine 0-5 /HPF (0-5)
== END 2023-05-11 16:43 | disposition home or self-care (01) ==
PROVIDERS: Nurse Practitioner Family; Physician Assistant; Emergency Provider Emergency Medicine
DX: F31.9 Bipolar disorder, unspecified (principal); F90.9 Attention-deficit hyperactivity disorder, unspecified type; F41.9 Anxiety disorder, unspecified; Z79.899 Other long term (current) drug therapy
CPT/HCPCS: 36415; 80048; 80076; 80307; 81001; 81025; 83735; 85025; 99283; 99284

== ENCOUNTER 2023-05-14 09:17 | Emergency (ER) | payer OTHER, MEDICAID, SELFPAY ==
[2023-05-14 09:20] VITALS: BP 132/84; PULSE 85; RESP 18; TEMP 36.1; O2SAT 96; BMI 28.0
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
[2023-05-14] MEDS: diazePAM 2 MG TABLET 10 MG PO (10:28)
[2023-05-14 10:51] LABS: MANUAL DIFF FLAG NO
[2023-05-14 10:53] LABS: Basophils Absolute Auto 0.1 X10*3/uL (0.0-0.2); Basophils Percent Auto 0.8 % (0-2); Eosinophils Absolute Auto 0.2 X10*3/uL (0.0-0.4); Eosinophils Percent Auto 3.1 % (0-4); Hematocrit 36.8 % (37.0-47.0); Hemoglobin 11.6 g/dl (12.0-16.0); Imm Gran Abs Auto 0.02 X10*3/uL (0.00-0.03); Imm Gran Pct Auto 0.3 % (0.0-0.4); Lymphocytes Absolute Auto 1.5 X10*3/uL (1.2-4.9); Lymphocytes Percent Auto 19.1 % (20-40); Mean Corpuscular HGB Conc 31.5 g/dl (31.0-35.0); Mean Corpuscular Hemoglobin 25.4 pg (27.0-33.0); Mean Corpuscular Volume 80.5 fL (80.0-98.0); Mean Platelet Volume 9.3 fL (9.4-12.3); Monocytes Absolute Auto 0.5 X10*3/uL (0.1-1.2); Monocytes Percent Auto 6.6 % (2-11); Neutrophils Absolute Auto 5.5 x10*3/uL (2.0-8.3); Neutrophils Percent Auto 70.1 % (45-73); Platelet Count 496 X10*3/uL (160-400); Red Blood Count 4.57 X10*6/uL (4.20-5.50); Red Cell Distribution Width 14.6 % (11.0-16.0); White Blood Count 7.9 X10*3/uL (4.8-10.8)
[2023-05-14 11:01] LABS: Appearance Urine Cloudy; Color Urine Dark Yellow; Glucose Urine UA Negative (Negative); Leukocyte Esterase Urine Small (1+) (Negative); Nitrite Urine Negative (Negative); UMIC TRIGGER UACC YES; Urine Blood Trace (Negative); Urine Ketones Trace mg/dL (Negative); Urine Protein 30 (1+) mg/dL (Neg-Trace)
[2023-05-14 11:13] LABS: Amphetamine Screen Urine POSITIVE (Not Detect); Barbiturates, Urine Not Detected (Not Detect); Benzodiazepines Screen Urine POSITIVE (Not Detect); Cannabinoid Screen Urine Not Detected (Not Detect); Cocaine Screen Urine Not Detected (Not Detect); Fentanyl, urine Not Detected (Not Detect); Opiate Screen Urine Not Detected (Not Detect); Phencyclidine Screen Urine Not Detected (Not Detect)
[2023-05-14 11:30] LABS: Alanine Aminotransferase 18 U/L (0-31); Albumin Level 4.4 g/dL (3.5-5.0); Alkaline Phosphatase 62 U/L (39-117); Anion Gap 14 (12-20); Aspartate Amino Transferase 17 U/L (5-31); Bilirubin Direct 0.1 mg/dL (0.0-0.5); Bilirubin Total 0.3 mg/dL (0.0-1.0); Blood Urea Nitrogen 6 mg/dL (9-16); Calcium 9.3 mg/dL (8.4-10.2); Carbon Dioxide 22 mmol/L (22-29); Chloride 106 mmol/L (96-108); Creatinine Clr Calc Pharmacy 115.9; Estimated Glomerular Filt Rate > 60; Ethanol < 10 mg/dL; Glucose Random 95 mg/dL (60-115); Magnesium 1.8 mg/dL (1.6-2.6); Potassium 3.6 mmol/L (3.3-5.1); Sodium 138 mmol/L (135-145); Total Protein 7.4 g/dL (6.5-8.0)
[2023-05-14 12:07] LABS: Bacteria Urine 4+ (None Seen); Hyaline Casts Urine 0-2 /LPF (0-2); RBC Urine 0-2 /HPF (0-2); Specific Gravity - Urine >= 1.030 (1.005-1.025); Squamous Epithelial Cell Urine >20 /HPF (0-2); UACC Culture Trigger YES
--- NOTE | 2023-05-14 15:49 | PHA.MEDREC ---
Pharmacy Consult ? Medication Reconciliation Pharmacy has completed the medication reconciliation. Reviewed med rec done by nursing
--- NOTE | 2023-05-14 16:06 | MHC.CARE ---
Brought patient an extra hannah.
[2023-05-14] MEDS: diazePAM 5 MG TABLET 10 MG PO ×2 (16:27→22:29)
[2023-05-14] MEDS: Ondansetron ODT 4 MG TAB.RAPDIS TRANSLINGU (17:49)
[2023-05-14] MEDS: Amoxicillin 500 MG CAPSULE PO (20:34)
[2023-05-14] MEDS: Propranolol HCL 10 MG TABLET PO (20:35)
[2023-05-14 20:38] VITALS: BP 115/78; PULSE 77; RESP 16; TEMP 36.8; O2SAT 100
[2023-05-15] MEDS: diazePAM 5 MG TABLET 10 MG PO ×3 (06:16→18:32)
[2023-05-15] MEDS: Acetaminophen 325 MG TABLET 650 MG PO ×3 (06:22→19:12)
--- NOTE | 2023-05-15 06:29 | PC.NURSE ---
patient slept through the night, no distress observed/reported except GBP for which she got Tylenol 650 mg PO @ 0616 with pending effect, PRN Valium 10 mg administered twice @ 2209 & 0616, disposition per care team is voluntary inpatient bed search, VSS, administered scheduled Amoxicillin for ear infection, VSS, behavior non concerning but at time demanding and loud, labs completed/resulted/reviewed, will continue to monitor.
[2023-05-15 06:31] VITALS: BP 114/72; PULSE 74; RESP 16; TEMP 36.6; O2SAT 97
--- NOTE | 2023-05-15 07:33 | PC.NURSE ---
patient appears to [place] asleep at present respirations are even and unlabored patient appears in no distress
[2023-05-15] MEDS: Amoxicillin 500 MG CAPSULE PO ×2 (08:46→20:37)
[2023-05-15] MEDS: Dextroamphetamine/Amphetamine XR 10 MG CAP.ER.24H 30 MG PO (08:46)
[2023-05-15] MEDS: Propranolol HCL 10 MG TABLET PO ×2 (08:46→20:37)
--- NOTE | 2023-05-15 08:53 | PC.NURSE ---
client made statements to this blog writer wherein she expressed t/w was screaming to her in the pod. pod is fully populated and in my opinion, at best could be described as talking loudly. unclear if patient is delusional ort dramatic or a combination of both.
[2023-05-15] MEDS: Amphetamine Mixed Salts 10 MG TABLET 30 MG PO (12:23)
[2023-05-15 16:14] VITALS: BP 120/69; PULSE 63; RESP 20; O2SAT 95
[2023-05-15] MEDS: Ondansetron ODT 4 MG TAB.RAPDIS TRANSLINGU (19:12)
[2023-05-15 20:17] VITALS: BP 133/85; PULSE 75; O2SAT 94
[2023-05-16 00:21] VITALS: RESP 15
--- NOTE | 2023-05-16 00:24 | PC.NURSE ---
This RN assumed care of patient at 2300, patient has been sleeping, respirations even and unlabored. Pt awoke to go to restroom, returned, asked this RN for saline for contacts. This RN provided patient with saline, pt rinsed eyes and handed saline syringe back. Pt now sleeping again, respirations even and unlabored
[2023-05-16] MEDS: diazePAM 5 MG TABLET 10 MG PO ×4 (02:07→20:41)
--- NOTE | 2023-05-16 02:08 | PC.NURSE ---
Pt requested to have her glasses due to her contacts falling out. This RN provided patient with glasses, glasses case checked by this RN to ensure to dangerous items were in case. Pt also requested Diazepam to assist with sleep at this time
[2023-05-16] MEDS: Acetaminophen 325 MG TABLET 650 MG PO ×2 (05:46→16:07)
[2023-05-16 06:19] VITALS: RESP 16
[2023-05-16 07:04] VITALS: BP 121/67; PULSE 81; RESP 16; TEMP 36.9; O2SAT 100
[2023-05-16] MEDS: Dextroamphetamine/Amphetamine XR 10 MG CAP.ER.24H 30 MG PO (08:26)
[2023-05-16] MEDS: Amoxicillin 500 MG CAPSULE PO ×2 (08:27→20:44)
[2023-05-16] MEDS: Propranolol HCL 10 MG TABLET PO (08:27)
[2023-05-16] MEDS: Amphetamine Mixed Salts 10 MG TABLET 30 MG PO (12:13)
[2023-05-16 16:26] VITALS: RESP 18
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
--- NOTE | 2023-05-16 18:37 | PC.NURSE ---
Angélica has been OOB and visible in the milieu this shift. She is able to make her needs known to have them met. Asked for PRN Valium as soon as due given x 2 this shift. has made a change so it's only available every 8 hours now pt aware. Appetite is good. Angélica is calm and pleasant. Art supplies were removed from her possession as the notebook had a wire spiral binding and pencils were very sharp, these items were placed in her belongings. Current plan is a respite bed search most likely with discharge tomorrow if a bed is secured. Angélica denies SI/HI/AVH but does endorse depression.
--- NOTE | 2023-05-16 19:12 | MHC.EDTECH ---
Davide and sent TSH.
[2023-05-16 19:52] LABS: Thyroid Stimulating Hormone 1.11 uIU/mL (0.32-4.0)
[2023-05-16] MEDS: Propranolol HCL 10 MG TABLET 25 MG PO (20:41)
[2023-05-16] MEDS: OLANZapine 10 MG TABLET 20 MG PO (20:41)
[2023-05-16 20:42] VITALS: BP 113/81; PULSE 76; RESP 16; O2SAT 99
--- NOTE | 2023-05-17 05:54 | PC.NURSE ---
Patient slept through the night, no distress observed/reported, disposition per care team is voluntary respite bed search, VSS, medication compliant, behavior non concerning, labs completed/resulted/reviewed, will continue to monitor.
[2023-05-17 05:58] VITALS: RESP 16
--- NOTE | 2023-05-17 07:05 | PC.NURSE ---
patient appears to remain at rest at present respirations are even and unlabored patient appears in no distress
[2023-05-17] MEDS: OLANZapine 10 MG TABLET PO ×2 (08:10→20:21)
[2023-05-17] MEDS: diazePAM 5 MG TABLET 10 MG PO ×2 (08:10→17:13)
[2023-05-17] MEDS: Dextroamphetamine/Amphetamine XR 10 MG CAP.ER.24H 30 MG PO (08:10)
[2023-05-17] MEDS: Propranolol HCL 10 MG TABLET 25 MG PO ×3 (08:11→20:22)
[2023-05-17] MEDS: Amoxicillin 500 MG CAPSULE PO ×2 (08:11→20:21)
[2023-05-17 08:18] VITALS: BP 112/71; PULSE 69; RESP 19; TEMP 36.3; O2SAT 99
[2023-05-17] MEDS: Amphetamine Mixed Salts 10 MG TABLET 30 MG PO (11:37)
[2023-05-18] MEDS: Acetaminophen 325 MG TABLET 650 MG PO (01:22)
[2023-05-18] MEDS: diazePAM 5 MG TABLET 10 MG PO ×2 (01:22→10:41)
[2023-05-18 01:28] VITALS: BP 112/80; PULSE 85; RESP 18; TEMP 36.5; O2SAT 97
--- NOTE | 2023-05-18 05:17 | PC.NURSE ---
Patient slept through the night, no distress observed/reported, disposition per care team is voluntary respite bed search, VSS, medication compliant, religiously uses her PRN Valium, behavior non concerning, labs completed/resulted/reviewed, will continue to monitor.
[2023-05-18] MEDS: Propranolol HCL 10 MG TABLET 25 MG PO (08:27)
[2023-05-18] MEDS: OLANZapine 10 MG TABLET PO (08:27)
[2023-05-18] MEDS: Dextroamphetamine/Amphetamine XR 10 MG CAP.ER.24H 30 MG PO (08:27)
[2023-05-18] MEDS: Amphetamine Mixed Salts 10 MG TABLET 30 MG PO (12:10)
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
== END 2023-05-18 13:48 | disposition home or self-care (01) ==
PROVIDERS: Clinical Nurse Specialist Psychiatric/Mental Health, Adult; Physician Assistant; Emergency Provider Internal Medicine
DX: F43.0 Acute stress reaction (principal); F41.9 Anxiety disorder, unspecified; G47.00 Insomnia, unspecified; F43.10 Post-traumatic stress disorder, unspecified; F39 Unspecified mood [affective] disorder; F31.9 Bipolar disorder, unspecified; F31.12 Bipolar disorder, current episode manic without psychotic features, moderate; F90.9 Attention-deficit hyperactivity disorder, unspecified type; Z79.899 Other long term (current) drug therapy
CPT/HCPCS: 36415; 80048; 80076; 80307; 81001; 81003; 83735; 84443; 85025; 87086; 99285; S9485

== ENCOUNTER → 2023-05-14 09:53 | Outpatient (BNV) | payer OTHER, SELFPAY | PROVIDERS: Emergency Provider Internal Medicine; Visit Provider Clinical Nurse Specialist Psychiatric/Mental Health, Adult | DX: F39 Unspecified mood [affective] disorder (principal); F43.11 Post-traumatic stress disorder, acute; F43.0 Acute stress reaction | CPT/HCPCS: 99283; 99499 ==

== ENCOUNTER 2023-09-12 14:16 | Emergency (ER) | payer OTHER, MEDICAID, SELFPAY ==
--- NOTE | ~2023-09-12 | XR_ITS ---
EXAMINATION: X-RAY LEFT ANKLE AND LEFT FOOT CLINICAL INDICATION: Fall, pain. COMPARISON: No similar priors. TECHNIQUE: 2 views of the left ankle and 3 views of the left foot. FINDINGS: No acute fracture or subluxation. Mild arthrosis of the first MTP joint. Os navicularis and perineum. No osseous erosions. No unusual soft tissue calcifications. Mild diffuse soft tissue swelling, lesser than when compared to the right ankle/right foot. XR/XR ankle LT min 3V IMPRESSION: 1. No fractures or subluxation. 2. 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 3. Soft tissue swelling, less extensive than when compared to the right ankle/right foot.
--- NOTE | ~2023-09-12 | XR_ITS ---
EXAMINATION: X-RAY LEFT ANKLE AND LEFT FOOT CLINICAL INDICATION: Fall, pain. COMPARISON: No similar priors. TECHNIQUE: 2 views of the left ankle and 3 views of the left foot. FINDINGS: No acute fracture or subluxation. Mild arthrosis of the first MTP joint. Os navicularis and perineum. No osseous erosions. No unusual soft tissue calcifications. Mild diffuse soft tissue swelling, lesser than when compared to the right ankle/right foot. XR/XR foot LT min 3V IMPRESSION: 1. No fractures or subluxation. 2. 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 3. Soft tissue swelling, less extensive than when compared to the right ankle/right foot.
--- NOTE | ~2023-09-12 | US_ITS ---
EXAMINATION: US VENOUS ULTRASOUND WITH DOPPLER LOWER EXTREMITY, BILATERAL CLINICAL INFORMATION: Bilateral lower extremity edema/pain COMPARISON: None available. TECHNIQUE: Ultrasound of the deep veins is performed from the hip to the calf with compression sonography and color and pulse Doppler assessment. Spectral analysis with color-flow imaging is performed. FINDINGS: RIGHT: There is normal venous compression and respiratory variation and augmented flow. The visualized common femoral vein, superficial femoral vein, profunda femoral vein, popliteal vein, and the posterior tibial and peroneal veins show no evidence of deep venous thrombosis. LEFT: There is normal venous compression and respiratory variation and augmented flow. The visualized common femoral vein, superficial femoral vein, profunda femoral vein, popliteal vein, and the posterior tibial and peroneal veins show no evidence of deep venous thrombosis. US/US venous duplex LE BI IMPRESSION: No DVT demonstrated in the right or left lower extremity.
--- NOTE | ~2023-09-12 | XR_ITS ---
EXAMINATION: X-RAY RIGHT ANKLE AND RIGHT FOOT CLINICAL INDICATION: Fall. COMPARISON: No similar priors. TECHNIQUE: 2 views of the right ankle and 3 views of the right foot. FINDINGS: No fracture or subluxation. Mild arthrosis of the first MTP joint. No osseous erosions. No unusual soft tissue calcifications. Diffuse nonspecific soft tissue swelling more noticeable in the ankle. XR/XR ankle RT min 3V IMPRESSION: 1. No acute fractures or malalignment. 2. Mild arthrosis of the first MTP joint. 3. Diffuse nonspecific soft tissue swelling.
--- NOTE | ~2023-09-12 | XR_ITS ---
EXAMINATION: X-RAY RIGHT ANKLE AND RIGHT FOOT CLINICAL INDICATION: Fall. COMPARISON: No similar priors. TECHNIQUE: 2 views of the right ankle and 3 views of the right foot. FINDINGS: No fracture or subluxation. Mild arthrosis of the first MTP joint. No osseous erosions. No unusual soft tissue calcifications. Diffuse nonspecific soft tissue swelling more noticeable in the ankle. XR/XR foot RT min 3V IMPRESSION: 1. No acute fractures or malalignment. 2. Mild arthrosis of the first MTP joint. 3. Diffuse nonspecific soft tissue swelling.
[2023-09-12 14:49] VITALS: BP 137/86; PULSE 113; RESP 16; TEMP 36.6; O2SAT 98; BMI 32.5
--- NOTE | 2023-09-12 14:49 | ED.GENADULT ---
HPI - General Adult General Chief complaint: Extremity Problem Stated complaint: Bilateral foot pain/SOB Time Seen by Provider: 09/12/23 20:03 Source: patient Mode of arrival: ambulatory History of Present Illness HPI narrative: 43-year-old female presents with concerns regarding left ankle sprain that occurred approximately 1 month ago and patient states she still has tenderness to the ankle as well as some swelling to the out side. In addition, patient states that 3 days ago she was at the [place] and suffered an injury on the escalator while getting off and states she has had right foot swelling since that time. Related Data Previous Rx's Medication Instructions Recorded ondansetron 4 mg disintegrating 4 mg PO Q6-8H PRN nausea and 04/15/23 tablet vomiting #10 tabs dextroamphetamine-amphetamine 30 30 mg PO .noon #30 tabs 05/19/23 mg tablet (Adderall) dextroamphetamine-amphetamine ER 30 mg PO DAILY #30 caps 05/19/23 30 mg 24hr capsule,extend release (Adderall XR) diazepam 10 mg tablet (Valium) 10 mg PO TID PRN anxiety #90 tabs 05/19/23 olanzapine 10 mg tablet 10 mg PO BID #180 tabs 05/19/23 propranolol 10 mg tablet 5 mg (1/2 x 10 mg) PO TID #135 tabs 05/19/23 propranolol 20 mg tablet 20 mg PO TID #270 tabs 05/19/23 Allergies Allergy/AdvReac Type Severity Reaction Status Date / Time acetaminophen [From Tylenol] AdvReac renal eval Verified 09/12/23 14:49 pending gluten AdvReac Gastrointestinal Verified 09/12/23 14:49 Upset lithium AdvReac Unknown Verified 09/12/23 14:49 lorazepam [From Ativan] AdvReac Headache Verified 09/12/23 14:49 wheat AdvReac Gastrointestinal Verified 09/12/23 14:49 Upset Review of Systems Review of Systems: Pertinent positives and negatives as stated in HPI [facility] Past Medical History Source: nursing notes reviewed Medical History Mood disorder with psychosis [place] exposure Ethan Marrero infection ADHD Anxiety PTSD (post-traumatic stress disorder) Mast cell activation Lyme disease Social History Social History Household Members: None Housing: Other Housing Other:: woman's fdc Do you presently have visiting nurse or other home services: No Unable to assess alcohol history related to: Refusing to respond Alcohol intake: never Patient Tobacco Use Status: Never used Tobacco Second Hand Smoke Exposure: No Advance Directives: No Advance Directives Information Provided: No service: No Sexual orientation: Straight/Heterosexual Physical Exam ED Vital Signs: Vital Signs - 24 hr 09/12/23 14:49 09/12/23 20:28 Temperature 97.8 F 938 F H Pulse Rate 113 H 90 Respiratory Rate 16 19 Blood Pressure 137/86 141/89 H Pulse Oximetry 98 98 Oxygen Delivery Method Room Air Room Air BMI result Body Mass Index 32.5 VITAL SIGNS: Reviewed. GENERAL: Well developed, well nourished, in no acute distress. HEAD: Normocephalic/atraumatic EYES: PERRLA, EOMI LUNGS: Normal breath sounds. No adventitious sounds or accessory muscle use. SpO2<98> CARDIOVASCULAR: Regular rate and rhythm without noted murmurs ABDOMEN: Soft, non-tender, non-distended with bowel sounds. MUSCULOSKELETAL: No tenderness, deformities, or effusions noted on gross inspection. EXTREMITIES: No cyanosis, clubbing or edema. LEFT ANKLE: Patient has mild swelling to the left lateral malleolus but otherwise foot is warm and neurovascular is intact. There is no evidence of erythema or induration. RIGHT ANKLE: Significant swelling noted to dorsum of the foot as well as bruising noted on the right foot instep and an injury to the plantar surface of the 4th toe. No evidence of erythema or induration and neurovascular is intact. SKIN: Inspection of the skin reveals no rashes NEUROLOGIC: Alert and oriented x 4. Strength and sensation to light touch were grossly intact x 4. Course Course Course Narrative: RME: 47 year-old F w/ PMHx PTSD, Lyme, ADHD, anxiety, presenting to the ED c/o bilateral foot/ankle pain and swelling worsening over the past few days s/p fall while walking up the stairs months ago & recurrent fall at mall last week. States difficulty fitting in shoes due to leg swelling. Also reports acute on chronic SOB +b/l LE swelling appreciated Labs, XRs, US ordered Full HPI, ROS and PE to be performed by primary ED provider. Medical Decision Making Medical Decision Making MDM Narrative: 43-year-old female with history and clinical presentation most consistent with likely continued healing ankle sprain from 1 month ago and appears to be an acute right ankle sprain, minimal concern for fracture/dislocation and no evidence to suggest gout/infection/cellulitis. I reviewed all investigations and hematologic indices negative for leukocytosis or left shift, patient has persistent thrombocytopenia and a chronically stable anemia. Coagulation studies are within normal limits. Chemistry indices do not demonstrate an PALLAVI and there is no electrolyte or liver enzyme derangements. I reviewed all imaging studies and there is no evidence of any fractures/dislocations and venous duplex is not significant for evidence of DVT. My interpretation is that patient has an acute right ankle sprain, she was given an Demetrius wrap and combination analgesics and feel that she has a healing left ankle sprain that continues to require analgesics. This was discussed with the patient at bedside. Differential Diagnosis Differential Diagnoses: The differential diagnosis associated with the presentation includes Please see the discussion above Admission/Observation Consideration of admission/observation: Escalation of care including admission/observation considered Please see the discussion above Lab Data [facility] Lab Attestation statement: I reviewed the patient's lab results. Please see the discussion above 09/12/23 15:43 09/12/23 15:43 Labs: Lab Results 09/12/23 Range/Units 15:43 WBC 8.0 (4.8-10.8) X10*3/uL RBC 4.48 (4.20-5.50) X10*6/uL Hgb 10.4 L (12.0-16.0) g/dl Hct 33.8 L (37.0-47.0) % MCV 75.4 L (80.0-98.0) fL MCH 23.2 L (27.0-33.0) pg MCHC 30.8 L (31.0-35.0) g/dl RDW 16.7 H (11.0-16.0) % Plt Count 499 H (160-400) X10*3/uL MPV 8.8 L (9.4-12.3) fL Immature Gran % (Auto) 0.5 H (0.0-0.4) % Neut % (Auto) 67.3 (45-73) % Lymph % (Auto) 22.0 (20-40) % [place] % (Auto) 4.8 (2-11) % Eos % (Auto) 4.5 H (0-4) % Baso % (Auto) 0.9 (0-2) % Lymph # (Auto) 1.8 (1.2-4.9) X10*3/uL [place] # (Auto) 0.4 (0.1-1.2) X10*3/uL Eos # (Auto) 0.4 (0.0-0.4) X10*3/uL Baso # (Auto) 0.1 (0.0-0.2) X10*3/uL Abs Immat Gran (auto) 0.04 H (0.00-0.03) X10*3/uL Absolute Neuts (auto) 5.4 (2.0-8.3) x10*3/uL Absolute Nucleated RBC 0.000 (0.0-0.012) X10*3/uL Nucleated RBC % (auto) 0.0 (0.0-0.2) /100WBC PT 11.6 (11.1-13.3) SEC INR 1.0 (0.9-1.1) Sodium 140 (135-145) mmol/L Potassium 3.9 (3.3-5.1) mmol/L Chloride 107 (96-108) mmol/L Carbon Dioxide 25 (22-29) mmol/L Anion Gap 12 (12-20) BUN 5 L (9-16) mg/dL Creatinine 0.70 (0.5-1.4) mg/dL Estim Creat Clear Calc 131.7 Estimated GFR > 60 Random Glucose 96 (60-115) mg/dL Calcium 9.1 (8.4-10.2) mg/dL Total Bilirubin 0.2 (0.0-1.0) mg/dL Direct Bilirubin < 0.2 (0.0-0.5) mg/dL AST 22 (5-31) U/L ALT 24 (0-31) U/L Alkaline Phosphatase 80 (39-117) U/L B-Natriuretic Peptide < 10 (<100) pg/mL Total Protein 7.1 (6.5-8.0) g/dL Albumin 3.9 (3.5-5.0) g/dL Radiology Impression Discussion of test interpretation with radiology: I have reviewed the radiologist's reading. Radiologist Impression: Please see the discussion above External Record Review External record reviewed: Outpatient record, Prior outpatient labs and Prior outpatient radiology Critical Care Time Critical Care Time Critical Care Time: Yes Total Critical Care Time: 45 Attestation: I personally attest to this time spent taking care of the patient. Discharge Plan Discharge Clinical Impression: Right ankle sprain, Ankle pain, left Patient Disposition: Home, Self-Care Instructions: Ankle Sprain (ED), How to Use an Elastic Bandage (ED), R.I.C.E. Treatment (ED), Ice Pack Application (ED) Additional Instructions: 1. Resume all home medications as prescribed. 2. Tylenol 1000 mg, orally, every 6 hours as needed for pain control. Do not exceed 4000 mg within 24 hours. 3. Ibuprofen 400 mg, orally with milk or food, every 6 hours as needed for pain control. I recommend that you use this in conjunction with Tylenol for improved symptom relief. 4. Please follow-up with your primary care doctor in the next 1-2 days. Return to the ER for any worsening symptoms. Prescriptions: No Action ondansetron 4 mg tablet,disintegrating 4 mg PO Q6-8H PRN (Reason: nausea and vomiting) Qty: 10 0RF olanzapine 10 mg tablet 10 mg PO BID Qty: 180 0RF Rx Instructions: Insurance will not fill unless a 90 day supply is sent. propranolol 20 mg tablet 20 mg PO TID Qty: 270 0RF Rx Instructions: Note: Insurance will not fill unless a 90 day supply is sent. propranolol 10 mg tablet 5 mg PO TID Qty: 135 0RF dextroamphetamine-amphetamine [Adderall XR] 30 mg capsule,extended release 24hr 30 mg PO DAILY Qty: 30 0RF Rx Instructions: Partial Fill upon patient request. dextroamphetamine-amphetamine [Adderall] 30 mg tablet 30 mg PO .noon Qty: 30 0RF Rx Instructions: Partial Fill upon patient request. diazepam [Valium] 10 mg tablet 10 mg PO TID PRN (Reason: anxiety) Qty: 90 0RF Referrals: Bogdan Pearce, DISCHARGE DOOR OPERATOR-BC [Primary Care Provider] -
[2023-09-12 15:49] LABS: MANUAL DIFF FLAG NO
[2023-09-12 15:51] LABS: Basophils Absolute Auto 0.1 X10*3/uL (0.0-0.2); Basophils Percent Auto 0.9 % (0-2); Eosinophils Absolute Auto 0.4 X10*3/uL (0.0-0.4); Eosinophils Percent Auto 4.5 % (0-4); Hematocrit 33.8 % (37.0-47.0); Hemoglobin 10.4 g/dl (12.0-16.0); Imm Gran Abs Auto 0.04 X10*3/uL (0.00-0.03); Imm Gran Pct Auto 0.5 % (0.0-0.4); Lymphocytes Absolute Auto 1.8 X10*3/uL (1.2-4.9); Mean Corpuscular HGB Conc 30.8 g/dl (31.0-35.0); Mean Corpuscular Hemoglobin 23.2 pg (27.0-33.0); Mean Corpuscular Volume 75.4 fL (80.0-98.0); Mean Platelet Volume 8.8 fL (9.4-12.3); Monocytes Absolute Auto 0.4 X10*3/uL (0.1-1.2); Monocytes Percent Auto 4.8 % (2-11); Neutrophils Absolute Auto 5.4 x10*3/uL (2.0-8.3); Neutrophils Percent Auto 67.3 % (45-73); Platelet Count 499 X10*3/uL (160-400); Red Blood Count 4.48 X10*6/uL (4.20-5.50); Red Cell Distribution Width 16.7 % (11.0-16.0)
[2023-09-12 16:00] LABS: Prothrombin Time 11.6 SEC (11.1-13.3)
[2023-09-12 16:07] LABS: Alanine Aminotransferase 24 U/L (0-31); Albumin Level 3.9 g/dL (3.5-5.0); Alkaline Phosphatase 80 U/L (39-117); Anion Gap 12 (12-20); Aspartate Amino Transferase 22 U/L (5-31); Bilirubin Direct < 0.2 mg/dL (0.0-0.5); Bilirubin Total 0.2 mg/dL (0.0-1.0); Blood Urea Nitrogen 5 mg/dL (9-16); Calcium 9.1 mg/dL (8.4-10.2); Carbon Dioxide 25 mmol/L (22-29); Chloride 107 mmol/L (96-108); Creatinine Clr Calc Pharmacy 131.7; Estimated Glomerular Filt Rate > 60; Glucose Random 96 mg/dL (60-115); Potassium 3.9 mmol/L (3.3-5.1); Sodium 140 mmol/L (135-145); Total Protein 7.1 g/dL (6.5-8.0)
[2023-09-12 16:10] LABS: B Type Natriuretic Peptide < 10 pg/mL (<100)
[2023-09-12 20:28] VITALS: BP 141/89; PULSE 90; RESP 19; TEMP 503.3; TEMP 938; O2SAT 98
== END 2023-09-12 20:51 | disposition home or self-care (01) ==
PROVIDERS: Physician Assistant; Emergency Provider Student in an Organized Health Care Education/Training Program; PCP Registered Nurse
DX: S93.401A Sprain of unspecified ligament of right ankle, initial encounter (principal); R60.0 Localized edema; M25.572 Pain in left ankle and joints of left foot; M79.672 Pain in left foot; M79.671 Pain in right foot; M25.571 Pain in right ankle and joints of right foot; X58.XXXA Exposure to other specified factors, initial encounter; Y93.9 Activity, unspecified; Y92.9 Unspecified place or not applicable; Y99.8 Other external cause status; Z79.899 Other long term (current) drug therapy
CPT/HCPCS: 36415; 73610; 73630; 80048; 80076; 83880; 85025; 85610; 93970; 99284

== ENCOUNTER 2024-08-30 08:05 | Emergency (ER) | payer MEDICARE, MEDICAID, SELFPAY ==
[2024-08-30 08:08] VITALS: BP 152/101; PULSE 110; RESP 18; TEMP 36.4; O2SAT 97; BMI 20.8
--- NOTE | 2024-08-30 08:18 | PC.NURSE ---
Mom with patient, has mental health issues, mom active in patients care, refused to come 2 days ago. Mom states she is decompensating
--- NOTE | 2024-08-30 08:19 | ED_ITS ---
HPI - General Adult General Chief complaint: Weakness Stated complaint: multiple issues Time Seen by Provider: 08/30/24 08:19 History of Present Illness ED Provider: Karla CAVAZOS narrative: The patient is a 48-year-old woman who was here with increasing fatigue over the last couple of weeks. She reports feeling dehydrated and feeling that she has dark urine. She has had some ear discomfort over the last few weeks and has taken a couple of antibiotics for a possible right ear infection. The patient lives with a her 2 young children both of whom have tested positive for flu recently. The patient is mother is here with her in the emergency room and the patient's mother speculates that the patient probably has a flu as well. The patient is complaining of a headache and body aches and a dry mouth. The patient reports that she has ?stage 4 Lyme disease. ? She says that she goes to [facility] on an annual basis for some kind of chemotherapy Related Data Previous Rx's ?Medication ?Instructions ?Recorded ondansetron 4 mg disintegrating 4 mg PO Q6-8H PRN nausea and 04/15/23 tablet vomiting #10 tabs dextroamphetamine-amphetamine 30 30 mg PO .noon #30 tabs 05/19/23 mg tablet (Adderall) dextroamphetamine-amphetamine ER 30 mg PO DAILY #30 caps 05/19/23 30 mg 24hr capsule,extend release (Adderall XR) diazepam 10 mg tablet (Valium) 10 mg PO TID PRN anxiety #90 tabs 05/19/23 olanzapine 10 mg tablet 10 mg PO BID #180 tabs 05/19/23 propranolol 10 mg tablet 5 mg (1/2 x 10 mg) PO TID #135 tabs 05/19/23 propranolol 20 mg tablet 20 mg PO TID #270 tabs 05/19/23 potassium chloride 20 mEq 20 meq PO BID 7 days #14 tabs 08/30/24 tablet,extended release prochlorperazine maleate 10 mg 10 mg PO Q6H PRN nausea and 08/30/24 tablet vomiting #12 tabs Allergies Allergy/AdvReac Type Severity Reaction Status Date / Time acetaminophen [From Tylenol] AdvReac renal eval Verified 08/30/24 08:15 pending gluten AdvReac Gastrointestinal Verified 08/30/24 08:15 Upset lithium AdvReac Unknown Verified 08/30/24 08:15 lorazepam [From Ativan] AdvReac Headache Verified 08/30/24 08:15 wheat AdvReac Gastrointestinal Verified 08/30/24 08:15 Upset Review of Systems 2 Review of Systems: Yes all other systems are reviewed and are negative [facility] Past Medical History Medical History Mood 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 ADHD Anxiety PTSD (post-traumatic stress disorder) Mast cell activation Lyme disease Social History Social History Household Members: None Housing: Other Housing Other:: [facility] Do you presently have visiting nurse or other home services: No Unable to assess alcohol history related to: Refusing to respond Alcohol intake: never Patient Tobacco Use Status: Never used Tobacco Second Hand Smoke Exposure: No Advance Directives: No Advance Directives Information Provided: Yes Do you have a plan to hurt others: No Plan Patient : No service: No Sexual orientation: Straight/Heterosexual Physical Exam ED Vital Signs: Vital Signs - 24 hr 08/30/24 08:08 08/30/24 08:42 08/30/24 10:21 Temperature 97.5 F 98.1 F Pulse Rate 110 H 103 H 91 Respiratory Rate 18 20 17 Blood Pressure 152/101 H 155/96 H 114/75 Pulse Oximetry 97 97 97 Oxygen Delivery Method Room Air Room Air 08/30/24 11:50 08/30/24 13:38 Temperature 98.1 F Pulse Rate 84 103 H Respiratory Rate 17 20 Blood Pressure 137/87 136/96 H Pulse Oximetry 98 95 Oxygen Delivery Method Room Air Room Air BMI result Body Mass Index 20.8 Const Other: The patient is a 48-year-old woman who is awake and alert. She looks somewhat chronically ill. Her mouth looks very dry. She was very talkative. She did not seem in respiratory distress. HENMT Other: Oral mucous membranes looked very dry. Eyes General: appearance normal, both eyes and all related structures Sclerae: sclerae normal Pupils: Equal, round and reactive pupils present EOM: EOMs intact bilaterally Neck Neck: Yes full ROM and Yes no lymphadenopathy Resp Effort & Inspection: normal respiratory effort Auscultation: clear to auscultation bilaterally Cardio Rate: regular rate Rhythm: regular rhythm Heart sounds: S1 normal heart sound present and S2 normal heart sound present GI Other: Abdomen is soft and non tender Skin Other: Skin is pale and dry Neuro Other: The patient is awake and alert. She was very talkative. I think her general manner of expression was at her baseline. I do not feel there was any cranial nerve deficit. She moves her extremities normally. Her gait was Cranial nerves: Yes Equal, round and reactive pupils present Extrem Other: No peripheral edema Medications Administered Discontinued Medications Generic Name Dose Route Start Last Admin Trade Name Venkatesh PRN Reason Stop Dose Admin Diphenhydramine HCl 25 mg 08/30/24 09:33 08/30/24 09:47 Diphenhydramine Hcl 50 Mg/Ml Vial IVPUSH 08/30/24 09:34 25 mg ONCE ONE Administration Sodium Chloride 1,000 mls @ 999 mls/hr 08/30/24 09:30 08/30/24 11:06 Ns IV 08/30/24 10:30 Infused .Q1H1M CHARLIE Infusion Potassium Chloride 10 meq in 100 mls @ 100 mls/hr 08/30/24 09:30 08/30/24 12:14 Potassium Chloride/H20 IV 08/30/24 11:29 Infused Q1H CHARLIE Infusion Ketorolac Tromethamine 10 mg 08/30/24 09:33 08/30/24 09:47 Ketorolac Tromethamine 15 Mg/Ml Vial IVPUSH 08/30/24 09:34 10 mg ONCE ONE Administration Metoclopramide HCl 10 mg 08/30/24 09:33 08/30/24 09:50 Metoclopramide Hcl 10 Mg/2 Ml Vial IVPUSH 08/30/24 09:34 10 mg ONCE ONE Administration Potassium Chloride 60 meq 08/30/24 08:54 08/30/24 09:51 Potassium Chloride Er 20 Meq Tab.Er.Prt PO 08/30/24 08:55 60 meq ONCE ONE Administration Medical Decision Making Medical Decision Making MDM Narrative: The patient is evaluation was complicated by the patient 's discourse on rather extensive health history. The patient's mother was in the room as well and summarized the patient's reason for coming to the hospital by saying that the patient has 2 children had recently had the flu and that the patient has been sick for about a week and seemed less well than usual and they were concerned that the patient might also have the flu. This turned out to be the case. Lab Data 08/30/24 08:24 08/30/24 11:50 Labs: Lab Results 08/30/24 08/30/24 08/30/24 Range/Units 08:24 08:31 11:50 WBC 4.4 L (4.8-10.8) X10*3/uL RBC 4.55 (4.20-5.50) X10*6/uL Hgb 11.6 L (12.0-16.0) g/dl Hct 34.4 L (37.0-47.0) % MCV 75.6 L (80.0-98.0) fL MCH 25.5 L (27.0-33.0) pg MCHC 33.7 (31.0-35.0) g/dl RDW 17.1 H (11.0-16.0) % Plt Count 358 D (160-400) X10*3/uL MPV 9.2 L (9.4-12.3) fL Immature Gran % (Auto) 0.5 H (0.0-0.4) % Neut % (Auto) 63.0 (45-73) % Lymph % (Auto) 26.7 (20-40) % Hooker % (Auto) 9.1 (2-11) % Eos % (Auto) 0.2 (0-4) % Baso % (Auto) 0.5 (0-2) % Lymph # (Auto) 1.2 (1.2-4.9) X10*3/uL Hooker # (Auto) 0.4 (0.1-1.2) X10*3/uL Eos # (Auto) 0.0 (0.0-0.4) X10*3/uL Baso # (Auto) 0.0 (0.0-0.2) X10*3/uL Abs Immat Gran (auto) 0.02 (0.00-0.03) X10*3/uL Absolute Neuts (auto) 2.8 (2.0-8.3) x10*3/uL Absolute Nucleated RBC 0.000 (0.0-0.012) X10*3/uL Nucleated RBC % (auto) 0.0 (0.0-0.2) /100WBC Sodium 134 L 140 (135-145) mmol/L Potassium 2.8 L* D 3.0 L (3.3-5.1) mmol/L Chloride 101 107 (96-108) mmol/L Carbon Dioxide 23 25 (22-29) mmol/L Anion Gap 13 11 L (12-20) BUN 4 L 4 L (9-16) mg/dL Creatinine 0.69 0.66 (0.5-1.4) mg/dL Estim Creat Clear Calc 108.6 113.6 Estimated GFR > 60 > 60 Random Glucose 122 H 99 (60-115) mg/dL Calcium 8.7 7.5 L D (8.4-10.2) mg/dL Total Bilirubin 0.3 (0.0-1.0) mg/dL AST 62 H (5-31) U/L ALT 64 H (0-31) U/L Alkaline Phosphatase 84 (39-117) U/L C-Reactive Protein 5.34 H (< or = 0.50) mg/dL Total Protein 7.5 (6.5-8.0) g/dL Albumin 4.1 (3.5-5.0) g/dL Influenza Type A (PCR) POSITIVE A (Negative) Influenza Type B (PCR) NEGATIVE (Negative) RSV RNA Qual (PCR) NEGATIVE (Negative) SARS-CoV-2 RNA (RT-PCR) NEGATIVE (Negative) S. pyogenes GrpA KEILY Negative (Negative) Discharge Plan Discharge Clinical Impression: Influenza A, Migraine headache, Hypokalemia Patient Disposition: Home, Self-Care Additional Instructions: Please rest and take it easy. Drink lot of fluids. Your potassium level was low today. I have sent a prescription for supplemental potassium to your pharmacy. You may use ibuprofen or naproxen as needed for headache. I have sent a prescription for prochlorperazine as an antinausea medication in case you have any nausea you would like to treat. Please follow up with your regular doctor soon. Return to the emergency room if significantly worse. Prescriptions: New potassium chloride 20 mEq tablet extended release 20 meq PO BID 7 Days Qty: 14 0RF prochlorperazine maleate 10 mg tablet 10 mg PO Q6H PRN (Reason: nausea and vomiting) Qty: 12 0RF No Action ondansetron 4 mg tablet,disintegrating 4 mg PO Q6-8H PRN (Reason: nausea and vomiting) Qty: 10 0RF olanzapine 10 mg tablet 10 mg PO BID Qty: 180 0RF Rx Instructions: Insurance will not fill unless a 90 day supply is sent. propranolol 20 mg tablet 20 mg PO TID Qty: 270 0RF Rx Instructions: Note: Insurance will not fill unless a 90 day supply is sent. propranolol 10 mg tablet 5 mg PO TID Qty: 135 0RF dextroamphetamine-amphetamine [Adderall XR] 30 mg capsule,extended release 24hr 30 mg PO DAILY Qty: 30 0RF Rx Instructions: Partial Fill upon patient request. dextroamphetamine-amphetamine [Adderall] 30 mg tablet 30 mg PO .noon Qty: 30 0RF Rx Instructions: Partial Fill upon patient request. diazepam [Valium] 10 mg tablet 10 mg PO TID PRN (Reason: anxiety) Qty: 90 0RF Referrals: Bogdan Pearce FNP-BC [Primary Care Provider] - (influenza, migraine, hypokalemia) Interventions: ED Discharge Assessment Last Done: 08/30/24 13:38 Discharge Date/Time: 08/30/24 13:38 Print Language: [place]
--- NOTE | 2024-08-30 08:20 | PC.NURSE ---
Mom states jaw is lock jaw and this is normal speech for her when this happens
[2024-08-30 08:31] LABS: MANUAL DIFF FLAG NO
[2024-08-30 08:32] LABS: Basophils Percent Auto 0.5 % (0-2); Eosinophils Percent Auto 0.2 % (0-4); Hematocrit 34.4 % (37.0-47.0); Hemoglobin 11.6 g/dl (12.0-16.0); Imm Gran Abs Auto 0.02 X10*3/uL (0.00-0.03); Imm Gran Pct Auto 0.5 % (0.0-0.4); Lymphocytes Absolute Auto 1.2 X10*3/uL (1.2-4.9); Lymphocytes Percent Auto 26.7 % (20-40); Mean Corpuscular HGB Conc 33.7 g/dl (31.0-35.0); Mean Corpuscular Hemoglobin 25.5 pg (27.0-33.0); Mean Corpuscular Volume 75.6 fL (80.0-98.0); Mean Platelet Volume 9.2 fL (9.4-12.3); Monocytes Absolute Auto 0.4 X10*3/uL (0.1-1.2); Monocytes Percent Auto 9.1 % (2-11); Neutrophils Absolute Auto 2.8 x10*3/uL (2.0-8.3); Platelet Count 358 X10*3/uL (160-400); Red Blood Count 4.55 X10*6/uL (4.20-5.50); Red Cell Distribution Width 17.1 % (11.0-16.0); White Blood Count 4.4 X10*3/uL (4.8-10.8)
[2024-08-30 08:42] VITALS: BP 155/96; PULSE 103; RESP 20; TEMP 36.7; O2SAT 97
[2024-08-30 08:42] LABS: IDNOW Serial# 08D9AD1C; Strep A Nucleic Acid Negative (Negative)
--- NOTE | 2024-08-30 08:49 | PC.NURSE ---
Pt comes to ED today with c/o ongoing MARISCAL, R ear pain, throat pain and generalized weakness. Pt reports PMH of Lymes Disease, Lock Jaw x2 yrs, and chronic dehydration. VSS, A&OX3, afebrile Blood work and nasal swab results pending.
[2024-08-30 08:54] LABS: Alanine Aminotransferase 64 U/L (0-31); Albumin Level 4.1 g/dL (3.5-5.0); Alkaline Phosphatase 84 U/L (39-117); Anion Gap 13 (12-20); Aspartate Amino Transferase 62 U/L (5-31); Bilirubin Total 0.3 mg/dL (0.0-1.0); Blood Urea Nitrogen 4 mg/dL (9-16); Calcium 8.7 mg/dL (8.4-10.2); Carbon Dioxide 23 mmol/L (22-29); Chloride 101 mmol/L (96-108); Creatinine Clr Calc Pharmacy 108.6; Estimated Glomerular Filt Rate > 60; Glucose Random 122 mg/dL (60-115); Potassium 2.8 mmol/L (3.3-5.1); Sodium 134 mmol/L (135-145); Total Protein 7.5 g/dL (6.5-8.0)
--- OUTSIDE RECORDS SUMMARY | 2024-08-30 09:24 | XMS_ITS | Data Portability ---
Author Organization [facility], , [facility] Address [address] [place] [address] Assessment Encounter Date Assessment Date Assessment LastModified by Organization Details LastModified Time 08/25/2015 08/25/2015 39yo woman with a history of hypothyroidism, multinodular goiter, question of pituitary swelling and severe headaches. US thyroid 01/23/13 revealed a right mid lobe 0.6cm hypoechoic nodule and a left mid lobe hypoechoic 0.6cm nodule. Labs reviewed: 02/10/15 tsh 0.65mU/L, ft4 0.59ng/dL (ref 0.93, 1.7), 12/28/14 ft3 2.6 pg/mL (ref 2, 4.4), ft4 1.04ng/dL tsh 0.015mU/L, 11/22/14 cortisol 39mcg/dL, 11/21/14 cortisol 25mcg/dL.? ? ? I am uncertain as to the etiology of Angélica's headaches, though migraines seem likely based on the photophobia, reduced sleep, and vomiting.? ? ? Since she felt better with less headaches on armour thyroid, restarting this seems indicated.? ? ? I would recommend getting a second opinion from neurology, though considering a pituitary MRI could be considered in the future if you are agreeable to this too.? ? ? She would like to think this over and consider the expense. A prolactin would be informative to assess for a pituitary mass today too.? ? ? A thyroid ultrasound could be reconsidered in the future as well. [email or web address] Not available 08/25/2015 09:09:54 Plan of Treatment Reminders Order Date Submit Date Provider Last Modified By Organization Details Last Modified Time Details Appointments None recorded. Lab T3, free, serum or plasma 2015 016 [facility], [address] [place], [address], 6 08:39:02 T4, free, serum - Adelso Rivas MD 2015 016 [facility], [address] [place] [address], [address], 6 11:14:48 TSH, serum or plasma - Adelso Rivas MD [address] [facility], [address] [place] [address], [address], 6 09:40:56 prolactin, serum 2015 016 [facility], [address] [place] [address], [address], 6 09:41:24 T3, free, serum or plasma 2015 016 [facility], [address] [place] [address], [address], 6 06:02:21 T4, free, serum - Adelso Rivas MD 2015 016 [facility], [address] [place] [address], [address], 6 17:02:00 TSH, serum or plasma - Adelso Rivas MD [address] [facility], [address] [place] [address], [address], 6 09:40:56 Referral neurologist referral - 39yo female w/ apparent hypophysiti s (formerly followed by Adelso Rivas MD) and family hx migraine has intermitten t very severe headaches, needs further evaluation and treatment. Thanks. 2015 016 [email or web address] Not available 6 08:30:14 rn family & immunologis t referral - 39yo female w/ frequent headaches and hx allergies (used to receive injections) needs further evaluation and treatment. Thanks. 2015 016 Ashly Hernandez MD, [address] [place] [address], [id number], 6 04:01:49 Procedures None recorded. Surgeries None recorded. Imaging None recorded. Medication Orders oxycodone 5 mg tablet 2014 015 [email or web address] [id number], [address] [place] [address], [address], 6 08:51:05 alprazolam 1 mg tablet 2014 015 [email or web address] [facility], [address] [place] [address], [address], 6 16:12:27 Bryant Thyroid 15 mg tablet 2015 016 [email or web address] [facility], [address] [place] [address], [address], 6 08:50:26 Bryant Thyroid 30 mg tablet 2015 016 [email or web address] [facility], [address] [place] [address], [address], 6 08:50:30 oxycodone 5 mg tablet [email or web address], [address] [place] [address], [address], 6 08:51:05 fluticasone propionate 50 mcg/actuati on nasal spray,suspe nsion 2015 016 [facility], [address] [place] [address], [address], 6 04:01:47 oxycodone 5 mg tablet 2015 016 [id number], [address] [place] [address], [address], 6 04:01:44 Patient TargetsNo targets recorded. Patient Instructions Encounter Date Encounter Id Patient Instructions Last Modified By Organization Details Last Modified Time 06/12/2015 [id number] Follow up as needed. [email or web address] Not available 06/12/2015 15:05:05 08/25/2015 [id number] -trial of restarting armour thyroid extract 45mg (30mg and 15mg tab) by mouth daily -please consider more regular sleep if possible, involve with feedings, have more time for you to recreate and exercise -labs now and 2mo -clinic 9 weeks [email or web address] Not available 08/25/2015 09:07:33 08/26/2015 [id number] Follow up as needed. Not available 08/26/2015 10:04:30 12/05/2015 [id number] Follow up with specialists as planned. Try the Flonase for now. Discussed indications for new prescription(s), risks and benefits of medication(s), common side effects and how to manage them, and reasons to notify prescriber of adverse effects or discontinuation. Not available 12/05/2015 21:50:06 Checked CROCHETER -- appropriate. Not available 12/05/2015 16:51:54 04/16/2016 [id number] Please follow up with Fiona Ramirez NP, next week as discussed. Not available 04/16/2016 22:27:42 Reason for Referral Neurologist Referral for Dis order of pituitary gland 39yo female w/ apparent hypophysitis (formerly followed by Adelso Rivas MD) and family hx migraine has intermittent very severe headaches, needs further evaluation and treatment. Thanks. Referring Physician: Coco Livingston, Family Medicine, Encounter Date: 08/26/2015 [employer] Ref erral for Allergic rhinitis 39yo female w/ frequent headaches and hx allergies (used to receive injections) needs further evaluation and treatment. Thanks. Referring Physician: Coco Livingston [facility], Encounter Date: 12/05/2015 Results Created Date Observation Date Name Description Value Unit Range Abnormal Flag Note LastModifiedBy Organization Detail LastModifiedTime 09/29/19 16 09/30/2015 T3, free, serum or plasm a T3, free 4.1 pg/mL 2.3-4. 2 normal Not Available [facility] [place] [facility] [address] [place], [place], [address], 09/30/2015 08:39:01 09/29/19 16 09/30/2015 T4, free, serum free T4 1.15 NG/dL 0.75-1 .54 Not Available [address], [address], 09/30/2015 11:14:48 09/29/19 16 09/30/2015 TSH, serum or plasm a TSH <0.01 uIU/m L 0.50-6 .00 low < The Ameri can Colle ge of Endoc rinol ogy and Ameri can Thyro id Assoc iatio n recom mend goal TSH value s betwe en 0.4-4 .0 mIU/m L. Not Available [address], [address], 09/30/2015 17:56:57 09/29/19 16 10/02/2015 prola ctin, serum prolactin 18.5 NG/mL Male: 3.3 - 20.8 ng/mL Femal e: Preme nopau alexi: 2.1 - 47.6 ng/mL Postm enopa usal: 0 - 41.1 ng/mL Not Available [address], [address], 10/02/2015 09:41:24 11/11/19 16 11/11/2015 T4, free, serum free T4 0.43 NG/dL 0.75-1 .54 low Not Available [address], [address], 11/11/2015 17:02:00 11/11/19 16 11/12/2015 T3, free, serum or plasm a T3, free 2.5 pg/mL 2.3-4. 2 normal Not Available [facility] [place] [facility] [address] [place], [place], [address], 11/12/2015 06:02:21 11/11/19 16 11/12/2015 TSH, serum or plasm a TSH 7.99 uIU/m L 0.50-6 .00 high The Luis can Colle ge of Endoc rinol ogy and uLis can Thyro id Assoc iatio n recom mend goal TSH value s betwe en 0.4-4 .0 mIU/m L. Not Available [address], [address], 11/12/2015 09:38:18 12/05/19 16 12/08/2015 drug scree n, urine amphetamine NEG. negati ve Not Available [address], [address], 12/08/2015 14:31:33 12/05/19 16 12/08/2015 drug scree n, urine barbiturates NEG. negati ve Not Available [address], [address], 12/08/2015 14:31:33 12/05/19 16 12/08/2015 drug scree n, urine benzodiazepi ne POS. negati ve GCMS= Sampl e sent to [facility] for confi rmati on by GC/MS . Not Available [address], [address], 12/08/2015 14:31:33 12/05/19 16 12/08/2015 drug scree n, urine cocaine NEG. negati ve Not Available [address], [address], 12/08/2015 14:31:33 12/05/19 16 12/08/2015 drug scree n, urine opiates POS. negati ve GCOP= Urine sampl e sent to [facility] for confi rmati on of opiat es by GC/MS . Not Available [address], [address], 12/08/2015 14:31:33 12/05/19 16 12/08/2015 drug scree n, urine methadone NEG. negati ve Syva EMIT II Limit s of Detec tion (cutt -off value s) Rosalinda Expan d: Amphe tamin es: 1000 ng/ml Opiat es: 300 ng/ml Isela tuate s: 200 ng/ml Canna binoi ds: 50 ng/ml Benzo diaze pines : 200 ng/ml Phenc yclid ine: 25 ng/ml Cocai ne: 300 ng/ml Metha done: 300 ng/ml Not Available [address], [address], 12/08/2015 14:31:33 12/05/19 16 12/10/2015 opiat es, quant itati ve, urine codeine NEGATI VE NG/mL <50 Not Available [facility] [address], [address], 12/10/2015 17:29:57 12/05/19 16 12/10/2015 opiat es, quant itati ve, urine hydrocodone NEGATI VE NG/mL <50 Not Available [facility] [place] [facility] [address], [address], 12/10/2015 17:29:57 12/05/19 16 12/10/2015 opiat es, quant itati ve, urine hydromorphon e NEGATI VE NG/mL <50 Not Available [facility] [address], [address], 12/10/2015 17:29:57 12/05/19 16 12/10/2015 opiat es, quant itati ve, urine morphine 3770 NG/mL <50 high Not Available [facility] [address], [address], 12/10/2015 17:29:57 12/05/19 16 12/10/2015 opiat es, quant itati ve, urine norhydrocodo ne NEGATI VE NG/mL <50 Not Available [facility] [address] [place], [address], 12/10/2015 17:29:57 12/05/19 16 12/10/2015 opiat es, quant itati ve, urine noroxycodone NEGATI VE NG/mL <50 Not Available [facility] [place] [facility] [address], [place], [address], 12/10/2015 17:29:57 12/05/19 16 12/10/2015 opiat es, quant itati ve, urine oxycodone NEGATI VE NG/mL <50 Not Available [facility] [place] [facility] [address], [place], [address], 12/10/2015 17:29:57 12/05/19 16 12/10/2015 opiat es, quant itati ve, urine oxymorphone NEGATI VE NG/mL <50 Not Available [facility] [place] [facility] [address], [place], [address], 12/10/2015 17:29:57 12/05/19 16 12/10/2015 benzo diaze pine, quant itati ve, urine alphahydroxy alprazolam 102 NG/mL <25 high Not Available [facility] [place] [facility] [address], [place], [address], 12/10/2015 17:29:57 12/05/19 16 12/10/2015 benzo diaze pine, quant itati ve, urine alphahydroxy midazolam NEGATI VE NG/mL <50 Not Available [facility] [place] [facility] [address], [place], [address], 12/10/2015 17:29:57 12/05/19 16 12/10/2015 benzo diaze pine, quant itati ve, urine alphahydroxy triazolam NEGATI VE NG/mL <50 Not Available [facility] [place] [facility] [address], [place], [address], 12/10/2015 17:29:57 12/05/19 16 12/10/2015 benzo diaze pine, quant itati ve, urine aminoclonaze laize NEGATI VE NG/mL <25 Not Available [facility] [place] [facility] [address], [place], [address], 12/10/2015 17:29:57 12/05/19 16 12/10/2015 benzo diaze pine, quant itati ve, urine hydroxyethyl flurazepam NEGATI VE NG/mL <[address] [facility] [place] [facility] [address], [place], [address], 12/10/2015 17:29:57 12/05/19 16 12/10/2015 benzo diaze pine, quant itati ve, urine lorazepam NEGATI VE NG/mL <50 Not Available [facility] [place] [facility] [address], [place], [address], 12/10/2015 17:29:57 12/05/19 16 12/10/2015 benzo diaze pine, quant itati ve, urine nordiazepam NEGATI VE NG/mL <50 Not Available [facility] [place] [facility] [address], [place], [address], 12/10/2015 17:29:57 12/05/19 16 12/10/2015 benzo diaze pine, quant itati ve, urine oxazepam NEGATI VE NG/mL <50 Not Available [facility] [place] [facility] [address], [place], [address], 12/10/2015 17:29:57 12/05/19 16 12/10/2015 benzo diaze pine, quant itati ve, urine temazepam NEGATI VE NG/mL <50 Not Available [facility] [place] [facility] [address], [address], 12/10/2015 17:29:57 01/15/20 16 01/15/2016 TSH, serum or plasm a TSH 2.51 uIU/m L 0.50-6 .00 The Ameri can Colle ge of Endoc rinol ogy and Ameri can Thyro id Assoc iatio n recom mend goal TSH value s shorty en 0.4-4 .0 mIU/m L. Not Available [address], [address], 01/15/2016 12:38:59 01/15/20 16 01/16/2016 T3, free, serum or plasm a T3, free 2.6 pg/mL 2.3-4. 2 normal Not Available [facility] [address], [place], [address], 01/16/2016 02:53:09 01/15/20 16 01/16/2016 T4, free, serum free T4 0.53 NG/dL 0.75-1 .54 low Not Available [address], [address], 01/16/2016 09:31:52 06/18/20 21 06/18/2021 CPK (CREA CLAIRE KINAS E) creatine kinase 42 U/L 21-215 Not Available [facility] [address] [place] [address], [address], 06/18/2021 14:15:02 06/18/20 21 06/19/2021 LYME SCREE N WITH REFLE X TO WESTE RN BLOT, BLOOD lyme Ab IgG NEGATI VE negati ve Not Available [facility] [address] [place], [address], 06/19/2021 10:50:16 06/18/20 21 06/19/2021 LYME SCREE N WITH REFLE X TO WESTE RN BLOT, BLOOD lyme Ab IgM NEGATI VE negati ve Not Available [facility] [address] [place], [address], 06/19/2021 10:50:16 06/18/20 21 06/22/2021 EHRLI LALI/ ANAPL ASMA PCR anaplasma phagocyto NEGATI VE negati ve Not Available [facility]) [address] [place], [address], 06/22/2021 10:06:37 06/18/20 21 06/22/2021 EHRLI LALI/ ANAPL ASMA PCR ehrlichia chaffeens NEGATI VE negati ve Not Available [facility]) [address] [place] [address], [id number], 06/22/2021 10:06:37 06/18/20 21 06/22/2021 EHRLI LALI/ ANAPL ASMA PCR ehrl ewingii/cani s NEGATI VE negati ve Not Available [facility]) [address] [place] [address], [id number], 06/22/2021 10:06:37 06/18/20 21 06/22/2021 EHRLI LALI/ ANAPL ASMA PCR ehrl muris-like NEGATI VE negati ve Not Available [facility]) [address] [place] [address], [id number], 06/22/2021 10:06:37 06/18/20 21 06/22/2021 BABES IA SPECI ES PCR B.microti PCR NEGATI VE negati ve Not Available [facility] [address] [place], [address], 06/22/2021 21:45:34 06/18/20 21 06/22/2021 BABES IA SPECI ES PCR B.duncani PCR NEGATI VE negati ve Not Available [facility]) [address] [place] [address], [id number], 06/22/2021 21:45:34 06/18/20 21 06/22/2021 BABES IA SPECI ES PCR B.divergens/ MO-1 PCR NEGATI VE negati ve Not Available [facility] [address] [place], [address], 06/22/2021 21:45:34 06/18/20 21 06/18/2021 BLOOD CULTU RE, ROUTI NE special requests NONE Not Available [facility] [address] [place], [address], 06/23/2021 08:30:51 06/18/20 21 06/23/2021 BLOOD CULTU RE, ROUTI NE blood culture NO GROWTH 5 DAYS Not Available [facility] [address] [place], [address], 06/23/2021 08:30:51 06/18/20 21 06/18/2021 BLOOD CULTU RE, ROUTI NE special requests NONE Not Available [facility]) [address] [place], [address], 06/23/2021 08:30:53 06/18/20 21 06/23/2021 BLOOD CULTU RE, ROUTI NE blood culture NO GROWTH 5 DAYS Not Available [facility] [address] [place], [address], 06/23/2021 08:30:53 06/19/20 21 06/19/2021 CBC AND DIFFE RENTI AL WBC 9.47 K/uL 4.00-1 1.00 Not Available [facility] [address] [place], [address], 06/19/2021 07:15:41 06/19/20 21 06/19/2021 CBC AND DIFFE RENTI AL RBC 3.58 M/uL 3.72-5 .30 low Not Available [facility] [address] [place], [address], 06/19/2021 07:15:41 06/19/20 21 06/19/2021 CBC AND DIFFE RENTI AL HGB 10.4 g/dL 10.6-1 5.5 low Cosby d and notif ied to Florina Luis at N3. Not Available [facility]) [address] [place] [address], [id number], 06/19/2021 07:15:41 06/19/20 21 06/19/2021 CBC AND DIFFE RENTI AL HCT 31.2 % 32.0-4 5.0 low Not Available [facility]) [address] [place] [address], [address], 06/19/2021 07:15:41 06/19/20 21 06/19/2021 CBC AND DIFFE RENTI AL plt 271 K/uL 140-43 0 Not Available [facility]) [address] [place] [address], [id number], 06/19/2021 07:15:41 06/19/20 21 06/19/2021 CBC AND DIFFE RENTI AL MCV 87.2 fL 78.0-9 7.0 Not Available [facility]) [address] [place] [address], [address], 06/19/2021 07:15:41 06/19/20 21 06/19/2021 CBC AND DIFFE RENTI AL MCH 29.1 pg 25.0-3 3.0 Not Available [facility]) [address] [place] [address], [id number], 06/19/2021 07:15:41 06/19/20 21 06/19/2021 CBC AND DIFFE RENTI AL MCHC 33.3 g/dL 32.0-3 6.0 Not Available [facility]) [address] [place] [address], [address], 06/19/2021 07:15:41 06/19/20 21 06/19/2021 CBC AND DIFFE RENTI AL RDW 13.3 % 11.0-1 6.0 Not Available [facility] [address] [place], [address], 06/19/2021 07:15:41 06/19/20 21 06/19/2021 CBC AND DIFFE RENTI AL MPV 9.8 fL 8.4-12 .8 Not Available [facility] [address] [place], [address], 06/19/2021 07:15:41 06/19/20 21 06/19/2021 CBC AND DIFFE RENTI AL NRBC 0.00 /100_ WBCs 0 Not Available [facility]) [address] [place] [address], [id number], 06/19/2021 07:15:41 06/19/20 21 06/19/2021 CBC AND DIFFE RENTI AL absolute NRBC 0.00 K/uL 0 Not Available [facility] [address] [place], [address], 06/19/2021 07:15:41 06/19/20 21 06/19/2021 CBC AND DIFFE RENTI AL diff method AUTO Not Available [facility]) [address] [place] [address], [id number], 06/19/2021 07:15:41 06/19/20 21 06/19/2021 CBC AND DIFFE RENTI AL neuts 79.9 % 43.0-7 5.0 high Not Available [facility]) [address] [place] [address], [address], 06/19/2021 07:15:41 06/19/20 21 06/19/2021 CBC AND DIFFE RENTI AL lymphs 10.9 % 18.2-4 7.4 low Not Available [facility]) [address] [place] [address], [address], 06/19/2021 07:15:41 06/19/20 21 06/19/2021 CBC AND DIFFE RENTI AL monos 7.4 % 4.00-1 1.00 Not Available [facility]) [address] [place] [address], [address], 06/19/2021 07:15:41 06/19/20 21 06/19/2021 CBC AND DIFFE RENTI AL eos 1.3 % 0.0-8. 0 Not Available [facility] ([facility]) [address] [place] [address], [address], 06/19/2021 07:15:41 06/19/20 21 06/19/2021 CBC AND DIFFE RENTI AL basos 0.2 % 0.0-2. 0 Not Available [facility] ([facility]) [address] [place] [address], [address], 06/19/2021 07:15:41 06/19/20 21 06/19/2021 CBC AND DIFFE RENTI AL granulocytes , immature (%) 0.3 % 0.0-0. 9 Not Available [facility] ([facility]) [address] [place] [address], [address], 06/19/2021 07:15:41 06/19/20 21 06/19/2021 CBC AND DIFFE RENTI AL absolute neuts 7.57 K/uL 1.80-7 .70 Not Available [facility]) [address] [place] [address], [id number], 06/19/2021 07:15:41 06/19/20 21 06/19/2021 CBC AND DIFFE RENTI AL absolute lymphs 1.03 K/uL 1.00-3 .10 Not Available [facility] ([facility]) [address] [place] [address], [address], 06/19/2021 07:15:41 06/19/20 21 06/19/2021 CBC AND DIFFE RENTI AL absolute monos 0.70 K/uL 0.20-0 .80 Not Available [facility]) [address] [place], [address], 06/19/2021 07:15:41 06/19/20 21 06/19/2021 CBC AND DIFFE RENTI AL absolute eos 0.12 K/uL 0.00-0 .80 Not Available [facility]) [address] [place], [address], 06/19/2021 07:15:41 06/19/20 21 06/19/2021 CBC AND DIFFE RENTI AL absolute basos 0.02 K/uL 0.00-0 .09 Not Available [facility] [address] [place], [address], 06/19/2021 07:15:41 06/19/20 21 06/19/2021 CBC AND DIFFE RENTI AL granulocytes , immature 0.03 K/uL 0.00-0 .05 Not Available [facility] [address] [place], [address], 06/19/2021 07:15:41 06/19/20 21 06/19/2021 COMPR EHENS DHAVAL METAB OLIC PANEL sodium 137 mmol/ L 133-14 6 Not Available [facility]) [address] [place] [address], [address], 06/19/2021 07:24:47 06/19/20 21 06/19/2021 COMPR EHENS DHAVAL METAB OLIC PANEL potassium 3.7 mmol/ L 3.3-5. 1 Not Available [facility] ([facility]) [address] [place] [address], [address], 06/19/2021 07:24:47 06/19/20 21 06/19/2021 COMPR EHENS DHAAVL METAB OLIC PANEL chloride 103 mmol/ L 96-108 Not Available [facility] [address] [place], [address], 06/19/2021 07:24:47 06/19/20 21 06/19/2021 COMPR EHENS DHAVAL METAB OLIC PANEL CO2 22 mmol/ L 21-35 Not Available [facility] [address] [place], [address], 06/19/2021 07:24:47 06/19/20 21 06/19/2021 COMPR EHENS DHAVAL METAB OLIC PANEL BUN 8 mg/dL 6-19 Not Available [facility] [address] [place], [address], 06/19/2021 07:24:47 06/19/20 21 06/19/2021 COMPR EHENS DHAVAL METAB OLIC PANEL creatinine 0.30 mg/dL 0.5-1. 5 low Not Available [facility] [address] [place], [address], 06/19/2021 07:24:47 06/19/20 21 06/19/2021 COMPR EHENS DHAVAL METAB OLIC PANEL glucose 86 mg/dL 70-99 Not Available [facility] [address] [place], [address], 06/19/2021 07:24:47 06/19/20 21 06/19/2021 COMPR EHENS DHAVAL METAB OLIC PANEL albumin 3.4 g/dL 3.9-4. 8 low Not Available [facility] [address] [place], [address], 06/19/2021 07:24:47 06/19/20 21 06/19/2021 COMPR EHENS DHAVAL METAB OLIC PANEL total protein 5.8 g/dL 6.5-8. 0 low Not Available [facility] [address] [place], [address], 06/19/2021 07:24:47 06/19/20 21 06/19/2021 COMPR EHENS DHAVAL METAB OLIC PANEL calcium 8.5 mg/dL 8.4-10 .3 Not Available [facility]) [address] [place] [address], [id number], 06/19/2021 07:24:47 06/19/20 21 06/19/2021 COMPR EHENS DHAVAL METAB OLIC PANEL alkaline phosphatase 39 U/L 39-117 Not Available [facility]) [address] [place] [address], [id number], 06/19/2021 07:24:47 06/19/20 21 06/19/2021 COMPR EHENS DHAVAL METAB OLIC PANEL total bilirubin 0.3 mg/dL 0.0-1. 2 Not Available [facility]) [address] [place] [address], [id number], 06/19/2021 07:24:47 06/19/20 21 06/19/2021 COMPR EHENS DHAVAL METAB OLIC PANEL AST 13 U/L 0-37 Not Available [facility]) [address] [place] [address], [id number], 06/19/2021 07:24:47 06/19/20 21 06/19/2021 COMPR EHENS DHAVAL METAB OLIC PANEL ALT 16 U/L 0-40 Not Available [facility]) [address] [place] [address], [id number], 06/19/2021 07:24:47 06/19/20 21 06/19/2021 COMPR EHENS DHAVAL METAB OLIC PANEL globulin 2.4 g/dL 1-4.8 Not Available [facility]) [address] [place] [address], [id number], 06/19/2021 07:24:47 06/19/20 21 06/19/2021 COMPR EHENS DHAVAL METAB OLIC PANEL eGFR >120 mL/mi n/1.7 3m2 >59 Estim ated glome rular filtr ation rate calcu lated using the CKD-E PI equat ion. Not Available [facility] (Outpatient) [address] [place], [address], 06/19/2021 07:24:47 06/19/20 21 06/19/2021 COMPR EHENS DHAVAL METAB OLIC PANEL anion gap 16 mmol/ L 10-20 Not Available [facility] (Outpatient) [address] [place], [address], 06/19/2021 07:24:47 06/19/20 21 06/19/2021 MAGNE SIUM magnesium 1.6 mg/dL 1.6-2. 6 Not Available [facility] (Outpatient) [address] [place], [address], 06/19/2021 07:24:48 06/19/20 21 06/19/2021 VITAM IN B12 vitamin B12 352 pg/mL 232-12 45 Not Available [facility] (Outpatient) [address] [place], [address], 06/19/2021 07:40:38 06/19/20 21 06/19/2021 COVID HUMBERTO KELLEY RESPI RATOR Y VIRAL ORDER (PRO) test ordered RAPID COVID HAS BEEN ORDERE D Not Available [facility] (Outpatient) [address] [place] [address], [id number], 06/19/2021 10:34:30 06/19/20 21 06/19/2021 COVID HUMBERTO KELLEY RESPI RATOR Y VIRAL ORDER (PRO) specimen source NASAL Not Available [facility] (Outpatient) [address] [place] [address], [id number], 06/19/2021 10:34:30 06/19/20 21 06/19/2021 COVID HUMBERTO KELLEY RESPI RATOR Y VIRAL ORDER (PRO) sars-cov-2 result NEGATI VE negati ve Negat dhaval resul ts do not precl ude SARS- CoV-2 infec tion and shoul d not be used as the sole basis for patie nt manag ement decis ions. Negat dhaval resul ts must be combi mara with clini sunni obser vatio ns, patie nt histo ry, and epide miolo gical infor matio n. Testi ng was perfo rmed using the Abbot t ID NOW COVID -19 assay perfo rmed on the Abbot t ID NOW Instr ument . Fact sheet s for this Emerg ency Use Autho rizat ion can be found at the UIBLUEPRINT links : For Healt hcare Provi ders: https ://[employer].Fits.me .gov/ media /0183 23/do wnloa d For Patie nts: https ://[employer].Fits.me .gov. media /8428 24/do wnloa d. Not Available [facility] (Outpatient) [address] [place] [address], [address], 06/19/2021 10:34:30 06/19/20 21 06/21/2021 LACHELLE DAPHNE SEROL OGY B.henselae Ab, IgG <1:128 titer <1:128 Not Available [facility] (Outpatient) [address] [place] [address], [address], 06/21/2021 15:30:35 06/19/20 21 06/21/2021 LACHELLE DAPHNE SEROL OGY B.henselae Ab, IgM <1:20 titer <1:20 Not Available [facility] (Outpatient) [address] [place], [address], 06/21/2021 15:30:35 06/19/20 21 06/21/2021 LACHELLE DAPHNE SEROL OGY B.renae Ab, IgG <1:128 titer <1:128 Not Available [facility] (Outpatient) [address] [place], [address], 06/21/2021 15:30:35 06/19/20 21 06/21/2021 LACHELLE DAPHNE SEROL OGY B.renae Ab, IgM <1:20 titer <1:20 Not Available [facility] (Outpatient) [address] [place] [address], [id number], 06/21/2021 15:30:35 06/20/20 21 06/20/2021 CBC AND DIFFE RENTI AL WBC 7.66 K/uL 4.00-1 1.00 Not Available [facility] (Outpatient) [address] [place] [address], [id number], 06/20/2021 06:59:28 06/20/20 21 06/20/2021 CBC AND DIFFE RENTI AL RBC 3.54 M/uL 3.72-5 .30 low Not Available [facility] (Outpatient) [address] [place] [address], [id number], 06/20/2021 06:59:28 06/20/20 21 06/20/2021 CBC AND DIFFE RENTI AL HGB 10.5 g/dL 10.6-1 5.5 low Not Available [facility] (Outpatient) [address] [place] [address], [id number], 06/20/2021 06:59:28 06/20/20 21 06/20/2021 CBC AND DIFFE RENTI AL HCT 30.9 % 32.0-4 5.0 low Not Available [facility] (Outpatient) [address] [place] [address], [id number], 06/20/2021 06:59:28 06/20/20 21 06/20/2021 CBC AND DIFFE RENTI AL plt 302 K/uL 140-43 0 Not Available [facility] (Outpatient) [address] [place] [address], [id number], 06/20/2021 06:59:28 06/20/20 21 06/20/2021 CBC AND DIFFE RENTI AL MCV 87.3 fL 78.0-9 7.0 Not Available [facility] (Outpatient) [address] [place] [address], [id number], 06/20/2021 06:59:28 06/20/20 21 06/20/2021 CBC AND DIFFE RENTI AL MCH 29.7 pg 25.0-3 3.0 Not Available [facility] (Outpatient) [address] [place], [address], 06/20/2021 06:59:28 06/20/20 21 06/20/2021 CBC AND DIFFE RENTI AL MCHC 34.0 g/dL 32.0-3 6.0 Not Available [facility] (Outpatient) [address] [place], [address], 06/20/2021 06:59:28 06/20/20 21 06/20/2021 CBC AND DIFFE RENTI AL RDW 13.2 % 11.0-1 6.0 Not Available [facility] (Outpatient) [address] [place] [address], [id number], 06/20/2021 06:59:28 06/20/20 21 06/20/2021 CBC AND DIFFE RENTI AL MPV 10.2 fL 8.4-12 .8 Not Available [facility] (Outpatient) [address] [place] [address], [address], 06/20/2021 06:59:28 06/20/20 21 06/20/2021 CBC AND DIFFE RENTI AL NRBC 0.00 /100_ WBCs 0 Not Available [facility] (Outpatient) [address] [place], [address], 06/20/2021 06:59:28 06/20/20 21 06/20/2021 CBC AND DIFFE RENTI AL absolute NRBC 0.00 K/uL 0 Not Available [facility] (Outpatient) [address] [place] [address], [id number], 06/20/2021 06:59:28 06/20/20 21 06/20/2021 CBC AND DIFFE RENTI AL diff method AUTO Not Available [facility] (Outpatient) [address] [place], [address], 06/20/2021 06:59:28 06/20/20 21 06/20/2021 CBC AND DIFFE RENTI AL neuts 71.9 % 43.0-7 5.0 Not Available [facility] (Outpatient) [address] [place], [address], 06/20/2021 06:59:28 06/20/20 21 06/20/2021 CBC AND DIFFE RENTI AL lymphs 15.9 % 18.2-4 7.4 low Not Available [facility] (Outpatient) [address] [place], [address], 06/20/2021 06:59:28 06/20/20 21 06/20/2021 CBC AND DIFFE RENTI AL monos 8.9 % 4.00-1 1.00 Not Available [facility] (Outpatient) [address] [place], [address], 06/20/2021 06:59:28 06/20/20 21 06/20/2021 CBC AND DIFFE RENTI AL eos 2.6 % 0.0-8. 0 Not Available [facility] (Outpatient) [address] [place], [address], 06/20/2021 06:59:28 06/20/20 21 06/20/2021 CBC AND DIFFE RENTI AL basos 0.4 % 0.0-2. 0 Not Available [facility] (Outpatient) [address] [place], [address], 06/20/2021 06:59:28 06/20/20 21 06/20/2021 CBC AND DIFFE RENTI AL granulocytes , immature (%) 0.3 % 0.0-0. 9 Not Available [facility] (Outpatient) [address] [place], [address], 06/20/2021 06:59:28 06/20/20 21 06/20/2021 CBC AND DIFFE RENTI AL absolute neuts 5.51 K/uL 1.80-7 .70 Not Available [facility] (Outpatient) [address] [place], [address], 06/20/2021 06:59:28 06/20/20 21 06/20/2021 CBC AND DIFFE RENTI AL absolute lymphs 1.22 K/uL 1.00-3 .10 Not Available [facility] (Outpatient) [address] [place], [address], 06/20/2021 06:59:28 06/20/20 21 06/20/2021 CBC AND DIFFE RENTI AL absolute monos 0.68 K/uL 0.20-0 .80 Not Available [facility] (Outpatient) [address] [place], [address], 06/20/2021 06:59:28 06/20/20 21 06/20/2021 CBC AND DIFFE RENTI AL absolute eos 0.20 K/uL 0.00-0 .80 Not Available [facility] (Outpatient) [address] [place] [address], [address], 06/20/2021 06:59:28 06/20/20 21 06/20/2021 CBC AND DIFFE RENTI AL absolute basos 0.03 K/uL 0.00-0 .09 Not Available [facility] (Outpatient) [address] [place], [address], 06/20/2021 06:59:28 06/20/20 21 06/20/2021 CBC AND DIFFE RENTI AL granulocytes , immature 0.02 K/uL 0.00-0 .05 Not Available [facility] (Outpatient) [address] [place], [address], 06/20/2021 06:59:28 06/20/20 21 06/20/2021 CORTI GIBSON AM cortisol AM 6.8 ug/dL 6.2-19 .4 Not Available [facility] (Outpatient) [address] [place] [address], [address], 06/20/2021 11:12:17 06/20/20 21 06/20/2021 FREE T4 free T4 0.7 NG/dL 0.9-1. 7 low Not Available [facility] (Outpatient) [address] [place] [address], [id number], 06/20/2021 11:12:18 06/20/20 21 06/20/2021 FREE T3 free T3 4.5 pg/mL 2.0-4. 4 high Not Available [facility] (Outpatient) [address] [place] [address], [address], 06/20/2021 11:12:19 06/20/20 21 06/20/2021 CORTI GIBSON PM cortisol pm 17.4 ug/dL 2.3-11 .9 high Not Available [facility] (Outpatient) [address] [place] [address], [address], 06/20/2021 13:26:12 06/20/20 21 06/23/2021 ACTH acth 8.0 pg/mL (NOTE ) ----- ----- ----- ----R EFERE NCE VALUE ----- ----- ----- ----- ----- - 7.2-6 3 (a.m. colle ction ) Not Available [facility] (Outpatient) [address] [place] [address], [address], 06/23/2021 10:27:27 06/21/20 21 06/21/2021 CORTI GIBSON AM cortisol AM 7.5 ug/dL 6.2-19 .4 Not Available [facility] (Outpatient) [address] [place] [address], [address], 06/21/2021 07:10:57 06/21/20 21 06/21/2021 FREE T4 free T4 0.6 NG/dL 0.9-1. 7 low Not Available [facility] (Outpatient) [address] [place], [address], 06/21/2021 07:10:59 06/21/20 21 06/21/2021 FREE T3 free T3 2.5 pg/mL 2.0-4. 4 Not Available [facility] (Outpatient) [address] [place], [address], 06/21/2021 07:11:00 08/15/19 16 01/23/2013 imagi ng/madonna mcadams tic resul t No observ ation record ed. BARCODE Not Available 2015 11:47:25 Result Notes None recorded. Problems Name Problem SNOMED Code Status Onset Date Resolution Date Notes Provider Name and Address Organization Details Recorded Time Hypothyroidism 80869220 Active Jeremy Hood MD [address] [place] [address] [place], [address], [facility] 6 09:49:36 Anxiety 37076020 Active Coco Livingston NP [address] [place] [address] [place], [address], [facility] 5 15:05:04 Disorder of pituitary gland [id number] Tamiko Livingston NP [address] [place], [place] [address], [address], [facility] 6 10:04:30 Headache 12888635 Tamiko Livingston NP [address] [place] [address] [place], [address], [facility] 6 08:34:47 Fatigue 90694052 Active Jeremy Hood MD [address] [place] [address] [place], [address], [facility] 6 09:09:52 Vomiting 200519705 Active Jeremy Hood MD [address] [place] [address] [place], [address], [facility] 6 09:09:52 Photophobia 839030059 Active Jeremy Hood MD [address] [place], [place] [address] [place], [address], [facility] 6 09:09:52 Non-toxic multinodular goiter 63418764 Active Jeremy Hood MD [address] [place], [place] [address] [place], [address], [facility] 6 09:09:52 Generalized anxiety disorder 94178281 Active Coco Livingston NP [address] [place], [place] [address] [place], [address], [facility] 6 10:04:30 Celiac disease 851924996 Active 2015 Coco Livingston NP [address] [place], [place] [address] [place], [address], [facility] 6 09:45:08 Problem Notes None recorded. Procedures Surgical History Date Name Laterality Status Provider Name and Address Organization Details Recorded Time 6 Appendectomy completed Coco Livingston NP [address] [place] [address], [phone], [facility] 06/12/2015 14:39:09 Imaging Results Imaging Date Name Status LastModified by Organiz ation Details LastModified Time 01/23/2013 imaging/diag nostic result completed BARCODE Information not available 08/15/2015 11:47:25 Procedure Notes None recorded. Medical Equipment None Reported. Allergies No known drug allergies Medications Name Sig Start Date Stop Date Status Note LastModified by Organization Details LastModified Time SSKI 1 gram/mL oral solution TAKE 0.15ML MIXED WITH 8 OZ OF WATER OF FRUIT JUICE ONCE A DAY THROUGHOU T AND . active Not Available Not Available No t Available ibuprofen 800 mg tablet 04/16 completed Not Available Not Available Not Available alprazolam 1 mg tablet TAKE 1 TABLET BY MOUTH 3 TIMES A DAY active Not Available Not Available No t Available ondansetron HCl 4 mg tablet DISSOLVE 1 TAB ON TONGUE EVERY 8 HOURS NEEDED FOR NAUSEA AND VOMITING active Not Available Not Available No t Available clonazepam 0.5 mg tablet TAKE 1 TABLET BY MOUTH TWICE A DAY 08/26 completed Not Available Not Available Not Available clonazepam 1 mg tablet TAKE 1 TABLET BY MOUTH TWICE A DAY FOR ANXIETY active Not Available Not Available No t Available cyanocobala min (vit B-12) 1,000 mcg tablet TAKE 1 TABLET BY MOUTH EVERY DAY active Not Available Not Available No t Available topiramate 25 mg tablet Take 1-2 tablets by mouth at bedtime daily. active Not Available Not Available No t Available metronidazo le 500 mg tablet TAKE 1 TABLET BY MOUTH 3 TIMES A DAY FOR 14 DAYS active Not Available Not Available No t Available liothyronin e 5 mcg tablet active Not Available Not Available Not Available butalbital- acetaminoph en-caffeine 50 mg-325 mg-40 mg tablet TAKE 1 TABLET BY MOUTH EVERY 4 HOURS NEEDED FOR HEADACHE active Not Available Not Available No t Available vancomycin 125 mg capsule TAKE ONE CAPSULE BY MOUTH EVERY 6 HOURS FOR 21 DAYS active Not Available Not Available No t Available levothyroxi ne 100 mcg tablet TAKE 1 TABLET BY MOUTH EVERY DAY active Not Available Not Available No t Available Bryant Thyroid 15 mg tablet 45mg (30mg and 15mg tab) by mouth once daily 4d a week and 60 mg (2, 30 mg tab) 3 days a week 04/16 completed Not Available Not Available Not Available oxycodone-a cetaminophe n 5 mg-325 mg tablet TAKE 1 TABLET BY MOUTH DAILY NEEDED FOR PAIN active Not Available Not Available No t Available alprazolam 0.5 mg tablet TAKE 1 TABLET BY MOUTH TWICE A DAY NEEDED FOR ANXIETY active Not Available Not Available No t Available Synthroid 88 mcg tablet Take 1 tablet every day by oral route. active Not Available Not Available No t Available docusate sodium 100 mg capsule 1 CAPSULE BY MOUTH DAILY 08/26 completed Not Available Not Available Not Available estradiol 2 mg tablet TAKE 1 TABLET BY MOUTH DAILY PER FET PROTOCOL UNTIL 8 WEEKS OF 08/26 completed Not Available Not Available Not Available folic acid 1 mg tablet TAKE 1 TABLET EVERY DAY active Not Available Not Available No t Available Bryant Thyroid 30 mg tablet 45MG (30MG AND 15MG TAB) BY MOUTH ONCE DAILY 3D A WEEK AND 30MG BY MOUTH ONCE DAILY 4 DAYS A WEEK 04/16 completed Not Available Not Available Not Available lorazepam 1 mg tablet take 1 tablet by mouth twice a day 08/26 completed Not Available Not Available Not Available ibuprofen 600 mg tablet active Not Available Not Available Not Available fluticasone propionate 50 mcg/actuati on nasal spray,suspe nsion SPRAY 1 TIME INTO EACH NOSTRIL DAILY DIRECTED 2015 active Not Available Not Available Not Avai lable sertraline 50 mg tablet TAKE 1 TABLET BY MOUTH EVERY DAY active Not Available Not Available No t Available oxycodone 5 mg tablet TAKE 1 TABLET THREE TIMES A DAY NEEDED 04/16 completed Not Available Not Available Not Available cholecalcif jessika (vitamin D3) 25 mcg (1,000 unit) capsule TAKE ONE CAPSULE EVERY DAY active Not Available Not Available No t Available Vitamin D3 25 mcg (1,000 unit) tablet 1 TABLET ONCE A DAY ORALLY 30 DAYS active Not Available Not Available No t Available topiramate 50 mg tablet TAKE 1-2 TABLET(S) BY ORAL ROUTE AT BEDTIME DAILY. active Not Available Not Available No t Available oxycodone 10 mg tablet 08/26 completed Not Available Not Available Not Available Tirosint 100 mcg capsule active Not Available Not Available Not Available EpiPen 2-Mohamud 0.3 mg/0.3 mL injection, auto-inject or INJECT 0.3 MG INTRAMUSC ULAR ONCE NEEDED active Not Available Not Available No t Available Vitals Date Recorded Heart rate Body weight Systolic blood pressure Diastolic blood pressure Provider Name and Address Organization Details Last Updated DateTime 06/12/2015 60 /min 15753.594 46 g 120 mm[Hg] 82 mm[Hg] Perlita Duque LPN [facility] 06/12/2015 14:13:54 Date Recorded Body height Body weight Body mass index (BMI) Heart rate Systolic blood pressure Diastolic blood pressure Provider Name and Address Organization Details Last Updated DateTime 6 177.8 cm 72783.3 21112 g 22.5 kg/m2 60 /min 116 mm[Hg] 84 mm[Hg] Nemo Cadet RN BSN [address] [place] [address], [phone] [place] [address] 6 08:25:36 Date Recorded Body height Body mass index (BMI) Body weight Heart rate Systolic blood pressure Diastolic blood pressure Provider Name and Address Organization Details Last Updated DateTime 6 177.8 cm 23.1 kg/m2 09761.6 28584 g 84 /min 112 mm[Hg] 84 mm[Hg] Charlette Sidhu LPN [facility] 6 09:38:21 Date Recorded Body height Body weight Heart rate Body mass index (BMI) Systolic blood pressure Diastolic blood pressure Provider Name and Address Organization Details Last Updated DateTime 6 177.8 cm 34284.6 97359 g 100 /min 23.1 kg/m2 132 mm[Hg] 82 mm[Hg] Tennille Alfredo [facility] 6 16:14:34 Date Recorded Body height Body weight Body mass index (BMI) Heart rate Systolic blood pressure Diastolic blood pressure Provider Name and Address Organization Details Last Updated DateTime 6 177.8 cm 80924.8 7 g 26.5 kg/m2 80 /min 126 mm[Hg] 88 mm[Hg] Tennille Alfredo [facility] 6 08:54:15 Social History Question Answer Notes LastModified by Organizat ion Details LastModified Time Tobacco Smoking Status Never Smoker 12/05/15 [facility] 14:17:52 What Is Your Level Of Alcohol Consumption? Occasional Rare On Special Occasions 08/25/15 [email or web address] Information not available 06/12/2015 Which Illicit Or Recreational Drugs Have You Used? 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 With Others [email or web address] Information not available 06/12/2015 CSRP - Narcotics Yes Information not available 09/01/2015 CSRP Contract Signed And Discussed Yes 08/26/2015 [place] Information not available 09/01/2015 Does The Patient Have Difficulty Speaking Swedish? No Information not available 12/05/2015 Does The Patient Have Difficulty Reading Swedish? No Information not available 12/05/2015 Patient Has Health Care Proxy Signed And In Chart No 06/12/15 [email or web address] Information not available 06/12/2015 Marital Status Jules Peralta Information not available 06/12/2015 How Many Children Do You Have? 1 Nirali Peralta 02/20/15 Information not available 06/12/2015 Sex: Unknown Functional Status None recorded. Mental Status None recorded. Family History Relationship Description Onset Age of this Age Resolved Age Notes LastModified by Organization Details LastModified Time Mother Subarachnoid hemorrhage 52 d/t OCP [email or web address] Not available 08/25/2015 08:44:16 Mother Essential hypertension [email or web address] Not available 07/2015 08:44:16 Mother Migraine [email or web address] Not available 08/25/2015 08:44:16 Father Essential hypertension [email or web address] Not available 07/2015 08:44:16 Father Generalized anxiety disorder [email or web address] Not available 2015 08:44:16 Sister Well adult [email or web address] Not availab le 08/25/2015 08:44:16 Brother Well adult [email or web address] Not availa ble 08/25/2015 08:44:16 Paternal Grandmother Disorder of thyroid gland thyroi d remove d [email or web address] Not available 08/25/2015 08:44:16 Paternal Grandmother of unknown cause 42 in her sleep [email or web address] Not available 08/25/2015 08:44:16 Notes:no family hx DM, CAD, breast cancer, colon cancer Medical History Condition Response Hypothyroid Y GASTROINTESTINAL Y Gynecological HistoryNo gynecological history recorded. Obstetrics History GPAL:G 0 P 0 0 0 0 Past Encounters Encounter ID Performer Location Encounter Start Date Encounter Closed Date Diagnosis/Indication Diagnosis SNOMED-CT Code Diagnosis ICD10 Code Diagnosis Note [id number] SINAI Livingston, [facility], OFFICE [address] [place] [address] 06/12/2015 12:52:38 06/12/2015 15:14:16 Hypothyroidism 70731521 E03.9 Stable, f/b Dr. Rivas. Anxiety 93799037 F41.9 Headache 86554834 R51 PRN for severe headaches r/t pituitary disorder. [id number] Britt [facility]man [facility], [address] [address] 08/25/2015 08:08:53 08/26/2015 09:20:39 Headache 87905480 R51 Hypothyroidism 47480820 E03.9 -restart armour thyroid 45mg (30mg and 15mg tab) by mouth daily -labs now and 2mo -clinic 9 weeks Fatigue 78796570 R53.83 Vomiting 433608179 R11.1 0 Photophobia 703823313 H5 3.149 Non-toxic multinodular goiter 66506177 E04.2 [id number] Letitia Burrows , [facility], OFFICE [address] [place] [address] 1 08/26/2015 09:25:17 08/26/2015 10:09:30 Disorder of pituitary gland 521340567 E23.7 G44.89 Headache 56978457 R51 PRN for severe headaches r/t pituitary disorder. Gareth thyroiditis 21 440892 E06.3 Stable. Generalize d anxiety disorder 50675508 F41.1 F41.0 [id number] Cooc Livingston NP , [facility], OFFICE [address] [place] [address] 12/05/2015 15:40:16 12/06/2015 08:15:44 Hypothyroidism 46044621 E03.9 Will f/u w/ endocrinol ogy soon. Allergic rhinitis 135339 04 J30.9 Abnormal u terine bleeding 9423845542 9100 N93.9 Improved since D&C, will f/u w/ BOND TRADER in 2mo. Headache 82732494 R51 [id number] Coco Livingston NP , [facility], OFFICE [address] [place] [address] 04/16/2016 08:25:52 04/16/2016 10:18:47 Hypothyroidism 75703058 E03.9 Stabilizin g. Celiac disease 537434150 K90.0 Stabilizin g again now that Rx don't contain gluten. Nondepende nt opioid abuse, continuous 032470731 F11.10 Arranging for treatment. Health Concerns Section Related Observation LastModified by Organization Detai ls LastModified Time None Recorded Concern Status LastModified by Organization Details LastModified Time None Recorded Advance Directives Directive None Recorded Payers Encounter Date Sequence Insurance Name Policy Number Policy [place] Covered Member ID [place] Member ID Guarantor Name 06/12/2015 1 [place] [id number] Jules Peralta [id number] Angélica Peralta 08/25/2015 1 *SELF PAY* Rahda Peralta 08/26/2015 1 *SELF PAY* Radha Peralta 12/05/2015 1 [place] [id number] Jules Peralta [id number] Angélica Peralta 04/16/2016 1 [place] [id number] Jules Peralta [id number] Angélica Peralta Notes Date Note Type Note Provider Name and Address Organization Details Recorded Time 06/12/2015 text/html Pt is here to ge t established, former pt of Dr. Abner Rogers in [place]. She has a 3mo baby and is preparing to retake NCLEX. 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 Pt has been taking alprazolam 0.5mg 3-4x/wk for situational anxiety, wants to taper and D/C completely -- has 4 tabs remaining of last Rx from previous PCP. Pattern Chart Writer thinks pt may have hypophysisis -- swelling of pituitary resulting in severe headache; she takes oxycodone prn; needs refill now but hopes she won't need it going forward. MRI is planned for further evaluation. Coco Livingston, DIE ASSEMBLER [address] [place] [address], [place], [address], [facility] 06/12/2015 15:07:37 08/25/2015 text/html HPI 37yo woman with a history of hypothyroidism, multinodular goiter, question of pituitary swelling and severe headaches. US thyroid 01/23/13 revealed a right mid lobe 0.6cm hypoechoic nodule and a left mid lobe hypoechoic 0.6cm nodule. she had seen Dr. Rivas in the past. She was supposed to have a mri of pituitary gland, to see if pituitary gland is swelling. she has had ivf. no headaches before on armour when on armour nodules reduced in size thyroid always feel plump severe headaches 1am to 4am, eyes dilate sometimes, temporal, travels back, vomit intermittently; light worsens it; dept store might tigger it; no change in vision; headahces are severe at times, had not occurred until ivf, these occur 3 to 4 times monthly gradually increasing in frequency for 4 years; worsening after armour; she is on 5 mg oxycodone 10 to 15 monthly would like to go back on armour more symptoms recur hands freezing, more confused (will say get me the keys instead of plate), no constipation, diarrhea weight has increased 16lb over 6mo sleep is hard to fall alseep, not consistent, headache wakes her up, until pain medicine cannot rest to fall asleep; sleeps 6h goes to bed hard with baby 10pm; baby 6mo she was nursing, stopped 11 weeks after giving periods, retained placenta ; expelling clots a few months after giving , lost a lot of blood, monthly periods for 3mo, no bleeding between periods ? Jeremy Hood MD [address] [place] [address], [id number], [facility] 08/25/2015 09:09:56 08/26/2015 text/html Pt returns for f/u, states she read [facility] -- wants to get off benzodiazepine. She has scheduled an appointment with a psychiatrist (Dr. Nguyen) in [place] -- wants help w/ finishing taper as well as dealing w/ anxiety. She has been taking alprazolam bid x nearly [address] Hood yesterday; will hold off on MRI but agrees w/ idea of neuro consult -- does have family hx migraines although has had apparent hypophysitis as well. Reviewed controlled substance contract w/ pt, who signed it today; will continue w/ Rx oxycodone #16/mo. Of note, pt will retake NCLEX at end of August. Coco Livingston NP [address] [place], [id number], [facility] 08/26/2015 10:07:14 04/16/2016 text/html Pt returns for f/u. She'll be taking NCLEX again soon, awaiting notification of date. She states she hasn't been feeling well, discussed w/ Dr. Hood -- he has titrated thyroid med dosages. She has also seen a specialist at [facility] very recently; was told the form of T4 she was taking has gluten in it. She's now taking Cytomel and Tirosint qd, still titrating dosages. She's starting to feel slightly better, will see him again in 6 weeks. She'll have scans of pituitary at [facility]. Also, pt has been trying to get off of pain medication -- last took Percocet 3-4 days ago -- then took the remainder of last Rx to police department for disposal. She states she has 4 tabs remaining. Pt requests to be put on suboxone, states she has researched it and it would be the best treatment for her. However, she has not been taking a high enough dose of oxycodone for there to be an equivalent suboxone dose. I've also informed pt she'll need appointment w/ suboxone prescriber to discuss this, and none is available today. Pt is upset by this, states that if she had come [place] [facility] [place] and w/ [facility] instead of private insurance she'd be Rx'd suboxone immediately, doesn't want to believe what I've already told her. She did agree to schedule appointment next but states she'll just quit cold turkey in the meantime. Of note, pt does want to be stable enough to take her nursing boards whenever they're scheduled. Coco Livingston, [facility] [address] [place] [address], [place], [id number], [facility] 04/16/2016 22:28:03 OBGyn Episode No OBEpisode recorded.
[2024-08-30 09:28] LABS: Influenza A PCR POSITIVE (Negative); Influenza B PCR NEGATIVE (Negative); Resp Syncy Virus RNA Qual PCR NEGATIVE (Negative); SARS COV2 PCR INHOUSE NEGATIVE (Negative)
[2024-08-30] MEDS: Ketorolac Tromethamine 15 MG/ML VIAL 10 MG IVPUSH (09:47)
[2024-08-30] MEDS: diphenhydrAMINE HCL 50 MG/ML VIAL 25 MG IVPUSH (09:47)
[2024-08-30] MEDS: Metoclopramide HCl 10 MG/2 ML VIAL IVPUSH (09:50)
[2024-08-30] MEDS: 0.9 % Sodium Chloride 1,000 ML 999 ML IV (09:50)
[2024-08-30] MEDS: Potassium Chloride ER 20 MEQ TAB.ER.PRT 60 MEQ PO (09:51)
[2024-08-30] MEDS: Potassium Chloride/H20 10 MEQ/100 ML PIGGYBACK 100 MEQ IV ×2 (10:00→11:09)
[2024-08-30 10:21] VITALS: BP 114/75; PULSE 91; RESP 17; O2SAT 97
[2024-08-30 10:35] LABS: C Reactive Protein 5.34 mg/dL (< or = 0.50)
[2024-08-30 11:50] VITALS: BP 137/87; PULSE 84; RESP 17; O2SAT 98
[2024-08-30 12:11] LABS: Anion Gap 11 (12-20); Blood Urea Nitrogen 4 mg/dL (9-16); Carbon Dioxide 25 mmol/L (22-29); Chloride 107 mmol/L (96-108); Creatinine Clr Calc Pharmacy 113.6; Estimated Glomerular Filt Rate > 60; Glucose Random 99 mg/dL (60-115); Sodium 140 mmol/L (135-145)
[2024-08-30 12:17] LABS: Calcium 7.5 mg/dL (8.4-10.2)
[2024-08-30 13:38] VITALS: BP 136/96; PULSE 103; RESP 20; TEMP 36.7; O2SAT 95
== END 2024-08-30 13:38 | disposition home or self-care (01) ==
PROVIDERS: Emergency Provider Emergency Medicine; PCP Registered Nurse
DX: J10.1 Influenza due to other identified influenza virus with other respiratory manifestations (principal); H92.03 Otalgia, bilateral; M79.10 Myalgia, unspecified site; R51.9 Headache, unspecified; R11.0 Nausea; Z03.818 Encounter for observation for suspected exposure to other biological agents ruled out; Z79.899 Other long term (current) drug therapy
CPT/HCPCS: 0241U; 36415; 80048; 80053; 85025; 86140; 87651; 96361; 96365; 96375; 99284; 99285; J1200; J1885; J2765; J3480

== ENCOUNTER 2024-09-11 05:44 | Emergency (ER) | payer MEDICARE, MEDICAID, SELFPAY ==
--- NOTE | ~2024-09-11 | XR_ITS ---
CLINICAL HISTORY: sob 1 view chest x-ray Comparison: CR/SR - XR CHEST 1V - 04/21/23 10:45 EDT Findings: The lungs are clear. Normal size heart. No acute fracture. IMPRESSION: 1. No acute findings. This document has been electronically signed by: Shelli Lala MD on 09/11/2024 06:34:18
[2024-09-11 05:51] VITALS: BP 139/79; PULSE 76; RESP 16; TEMP 36.1; O2SAT 98; BMI 19.9
[2024-09-11 06:11] LABS: Basophils Absolute Auto 0.1 X10*3/uL (0.0-0.2); Basophils Percent Auto 0.6 % (0-2); Eosinophils Absolute Auto 0.4 X10*3/uL (0.0-0.4); Eosinophils Percent Auto 4.1 % (0-4); Hemoglobin 12.1 g/dl (12.0-16.0); Imm Gran Abs Auto 0.09 X10*3/uL (0.00-0.03); Imm Gran Pct Auto 0.9 % (0.0-0.4); Lymphocytes Absolute Auto 2.5 X10*3/uL (1.2-4.9); Lymphocytes Percent Auto 25.8 % (20-40); MANUAL DIFF FLAG NO; Mean Corpuscular HGB Conc 32.7 g/dl (31.0-35.0); Mean Corpuscular Hemoglobin 25.5 pg (27.0-33.0); Mean Corpuscular Volume 78.1 fL (80.0-98.0); Mean Platelet Volume 8.9 fL (9.4-12.3); Monocytes Absolute Auto 0.7 X10*3/uL (0.1-1.2); Neutrophils Absolute Auto 6.1 x10*3/uL (2.0-8.3); Neutrophils Percent Auto 61.6 % (45-73); Platelet Count 589 X10*3/uL (160-400); Red Blood Count 4.74 X10*6/uL (4.20-5.50); Red Cell Distribution Width 16.8 % (11.0-16.0); White Blood Count 9.8 X10*3/uL (4.8-10.8)
[2024-09-11 06:26] LABS: Alanine Aminotransferase 98 U/L (0-31); Albumin Level 3.8 g/dL (3.5-5.0); Alkaline Phosphatase 87 U/L (39-117); Anion Gap 15 (12-20); Aspartate Amino Transferase 96 U/L (5-31); Bilirubin Total 0.3 mg/dL (0.0-1.0); Blood Urea Nitrogen 8 mg/dL (9-16); Calcium 8.8 mg/dL (8.4-10.2); Carbon Dioxide 22 mmol/L (22-29); Chloride 107 mmol/L (96-108); Creatinine Clr Calc Pharmacy 119.9; Estimated Glomerular Filt Rate > 60; Glucose Random 105 mg/dL (60-115); Potassium 3.8 mmol/L (3.3-5.1); Sodium 140 mmol/L (135-145); Total Protein 7.2 g/dL (6.5-8.0)
--- NOTE | 2024-09-11 06:31 | ED.GENADULT ---
HPI - General Adult General Chief complaint: General Medical Stated complaint: sob Time Seen by Provider: 09/11/24 06:27 Source: patient Mode of arrival: ambulatory Limitations: no limitations History of Present Illness ED Provider: Faina Ponce PA-C HPI narrative: 48 yo female with history of PTSD, mood disorder, bipolar disorder, mast cell activation syndrome, stage IV Lyme disease and recent diagnosis of influenza A on 08/30 who presents back to the ER for evaluation of not feeling well. She reports she has not slept more than 20 minutes at a time since she was discharged from here on 08/30. she reports generalized headache, ongoing body aches, weakness and not feeling well. she has had recurrent vomiting. she has on/off diarrhea at baseline. she feels like she is vomiting up her meds. she is worried about her potassium levels. she reports confusion due to lack of sleep. she [place] go [place] see [place] Lyme doctor today but [employer] did not want her to get on the flight vomiting. MD complaint: vomiting, headache, confusion, flu+ Onset (ago): day(s) Location: head Radiation: non-radiation Severity: moderate Quality: aching Pain Consistency: constant Relieving factors: none Exacerbating factors: none Associated symptoms: confusion, headaches, loss of appetite, malaise, nausea/vomiting, shortness of breath and weakness Treatments prior to arrival: none Related Data Previous Rx's ?Medication ?Instructions ?Recorded ondansetron 4 mg disintegrating 4 mg PO Q6-8H PRN nausea and 04/15/23 tablet vomiting #10 tabs dextroamphetamine-amphetamine 30 30 mg PO .noon #30 tabs 05/19/23 mg tablet (Adderall) dextroamphetamine-amphetamine ER 30 mg PO DAILY #30 caps 05/19/23 30 mg 24hr capsule,extend release (Adderall XR) diazepam 10 mg tablet (Valium) 10 mg PO TID PRN anxiety #90 tabs 05/19/23 olanzapine 10 mg tablet 10 mg PO BID #180 tabs 05/19/23 propranolol 10 mg tablet 5 mg (1/2 x 10 mg) PO TID #135 tabs 05/19/23 propranolol 20 mg tablet 20 mg PO TID #270 tabs 05/19/23 potassium chloride 20 mEq 20 meq PO BID 7 days #14 tabs 08/30/24 tablet,extended release prochlorperazine maleate 10 mg 10 mg PO Q6H PRN nausea and 08/30/24 tablet vomiting #12 tabs ondansetron 4 mg disintegrating 4 mg PO Q8H PRN nausea and 09/11/24 tablet vomiting #10 tabs Allergies Allergy/AdvReac Type Severity Reaction Status Date / Time acetaminophen [From Tylenol] AdvReac renal eval Verified 09/11/24 05:54 pending gluten AdvReac Gastrointestinal Verified 09/11/24 05:54 Upset lithium AdvReac Unknown Verified 09/11/24 05:54 lorazepam [From Ativan] AdvReac Headache Verified 09/11/24 05:54 wheat AdvReac Gastrointestinal Verified 09/11/24 05:54 Upset Review of Systems Review of Systems: Yes all other systems are reviewed and are negative [facility] Past Medical History Medical History Mood disorder with psychosis [place]yenne exposure Ethan Marrero infection ADHD Anxiety PTSD (post-traumatic stress disorder) Mast cell activation Lyme disease Social History Social History Household Members: None Housing: Other Housing Other:: [facility] Do you presently have visiting nurse or other home services: No Unable to assess alcohol history related to: Refusing to respond Alcohol intake: never Patient Tobacco Use Status: Never used Tobacco Smoked in Last 30 Days: No Second Hand Smoke Exposure: No Use of substances other than those prescribed or required for medical reasons: No Advance Directives: No Advance Directives Information Provided: Yes Do you have a plan to hurt others: No Plan service: No Sexual orientation: Straight/Heterosexual Physical Exam ED Vital Signs: Vital Signs - 24 hr 09/11/24 05:51 09/11/24 10:00 09/11/24 11:57 Temperature 97.0 F 97.7 F 97.5 F Pulse Rate 76 74 75 Respiratory Rate 16 16 18 Blood Pressure 139/79 135/99 H 161/75 H Pulse Oximetry 98 100 Oxygen Delivery Method Room Air Room Air Oxygen Flow Rate 98 BMI result Body Mass Index 19.9 Appearance: Alert. Oriented X3. No acute distress. Head: normocephalic, atraumatic. Eyes: Pupils equal, round and reactive to light. ENT: Pharynx normal. No tonsillar swelling or exudate. Neck: Normal inspection. Neck supple. CVS: Normal heart rate and rhythm. Pulses normal. Respiratory: No respiratory distress. Breath sounds normal. Abdomen: Soft and nontender. +BS x4 Skin: Skin warm and dry. Normal skin color. Normal skin turgor. No rashes. Extremities: No lower extremity edema. No joint swelling. Neuro/psych: Oriented X 3. No motor deficit. No sensory deficit. CN II-XII intact. pressured speech with intermittent stuttering Medications Administered Discontinued Medications Generic Name Dose Route Start Last Admin Trade Name Freq PRN Reason Stop Dose Admin Diphenhydramine HCl 50 mg 09/11/24 06:57 09/11/24 07:30 Diphenhydramine Hcl 50 Mg/Ml Vial IVPUSH 09/11/24 06:58 50 mg ONCE ONE Administration Lactated Ringer's 1,000 mls @ 999 mls/hr 09/11/24 07:00 09/11/24 09:39 Lr IV 09/11/24 08:00 Infused .Q1H1M CHARLIE Infusion Ketorolac Tromethamine 15 mg 09/11/24 06:57 09/11/24 07:30 Ketorolac Tromethamine 15 Mg/Ml Vial IVPUSH 09/11/24 06:58 15 mg ONCE ONE Administration Metoclopramide HCl 10 mg 09/11/24 06:57 09/11/24 07:30 Metoclopramide Hcl 10 Mg/2 Ml Vial IVPUSH 09/11/24 06:58 10 mg ONCE ONE Administration Morphine Sulfate 4 mg 09/11/24 06:57 09/11/24 07:31 Morphine Sulfate 4 Mg/Ml Cartridge IVPUSH 09/11/24 06:58 4 mg ONCE ONE Administration Protocol Medical Decision Making Medical Decision Making MDM Narrative: 48 yo female with recent influenza A presenting for evaluation of confusion, lack of sleep, headache, N/V with concerns for low potassium. she is requesting IV medications to treat her headache that has worked in the past including Tordol and morphine. labs showing normal K. BUN low. no evidence of dehydration. IV established and she was given IV reglan, benadryl, toradol and morphine. patient slept well for 3 hours. she woke up feeling better. she would like to go home. comfortable with discharge home. prn zofran prescribed. Differential Diagnosis Differential Diagnoses: The differential diagnosis associated with the presentation includes dehydration, metabolic dernagement, PALLAVI, influenza, migraine headache, sleep deprivation, insomnia, gastroenteritis Admission/Observation Consideration of admission/observation: Escalation of care including admission/observation considered Lab Data MDM Lab Attestation statement: I reviewed the patient's lab results. normal K, no leukocytosis, thrombocytosis, 09/11/24 06:05 09/11/24 06:05 Labs: Lab Results 09/11/24 Range/Units 06:05 WBC 9.8 (4.8-10.8) X10*3/uL RBC 4.74 (4.20-5.50) X10*6/uL Hgb 12.1 (12.0-16.0) g/dl Hct 37.0 (37.0-47.0) % MCV 78.1 L (80.0-98.0) fL MCH 25.5 L (27.0-33.0) pg MCHC 32.7 (31.0-35.0) g/dl RDW 16.8 H (11.0-16.0) % Plt Count 589 H D (160-400) X10*3/uL MPV 8.9 L (9.4-12.3) fL Immature Gran % (Auto) 0.9 H (0.0-0.4) % Neut % (Auto) 61.6 (45-73) % Lymph % (Auto) 25.8 (20-40) % [place]yenne % (Auto) 7.0 (2-11) % Eos % (Auto) 4.1 H (0-4) % Baso % (Auto) 0.6 (0-2) % Lymph # (Auto) 2.5 (1.2-4.9) X10*3/uL [place]enne # (Auto) 0.7 (0.1-1.2) X10*3/uL Eos # (Auto) 0.4 (0.0-0.4) X10*3/uL Baso # (Auto) 0.1 (0.0-0.2) X10*3/uL Abs Immat Gran (auto) 0.09 H (0.00-0.03) X10*3/uL Absolute Neuts (auto) 6.1 (2.0-8.3) x10*3/uL Absolute Nucleated RBC 0.000 (0.0-0.012) X10*3/uL Nucleated RBC % (auto) 0.0 (0.0-0.2) /100WBC Sodium 140 (135-145) mmol/L Potassium 3.8 D (3.3-5.1) mmol/L Chloride 107 (96-108) mmol/L Carbon Dioxide 22 (22-29) mmol/L Anion Gap 15 (12-20) BUN 8 L (9-16) mg/dL Creatinine 0.60 (0.5-1.4) mg/dL Estim Creat Clear Calc 119.9 Estimated GFR > 60 Random Glucose 105 (60-115) mg/dL Calcium 8.8 D (8.4-10.2) mg/dL Total Bilirubin 0.3 (0.0-1.0) mg/dL AST 96 H (5-31) U/L ALT 98 H (0-31) U/L Alkaline Phosphatase 87 (39-117) U/L Total Protein 7.2 (6.5-8.0) g/dL Albumin 3.8 (3.5-5.0) g/dL External Record Review External record reviewed: Outpatient record, Prior outpatient labs and Prior outpatient radiology Tests considered The following testing was considered but not selected: CT head considered Prescription Management I considered prescription management with: Pain Medication and Antibiotic Chronic Conditions Patient?s care impacted by: Other (bipolar disorder, PTSD) Social Determinants Patient?s care significantly limited by Social Determinants of Health including: Problems related to primary support group Critical Care Time Critical Care Time Critical Care Time: No Discharge Plan Discharge Clinical Impression: Recurrent vomiting, Lack of adequate sleep Patient Disposition: Home, Self-Care Instructions: Acute Nausea and Vomiting (ED), Insomnia (ED) Additional Instructions: your labs today did not show concerns for dehydration. your potassium was normal it is very important that you priorize your circadian rhythm and night sleep recommend melatonin 5 mg at night you can also try taking your valium at night. if you are nauseated try taking zofran before you take your medications. this can be taken every 6-8 hours as needed take your adderall tomorrow morning follow up with your doctor this week If you develop new or worsening symptoms call 911 or come back to the ER for further evaluation. Prescriptions: New ondansetron 4 mg tablet,disintegrating 4 mg PO Q8H PRN (Reason: nausea and vomiting) Qty: 10 0RF No Action ondansetron 4 mg tablet,disintegrating 4 mg PO Q6-8H PRN (Reason: nausea and vomiting) Qty: 10 0RF olanzapine 10 mg tablet 10 mg PO BID Qty: 180 0RF Rx Instructions: Insurance will not fill unless a 90 day supply is sent. propranolol 20 mg tablet 20 mg PO TID Qty: 270 0RF Rx Instructions: Note: Insurance will not fill unless a 90 day supply is sent. propranolol 10 mg tablet 5 mg PO TID Qty: 135 0RF dextroamphetamine-amphetamine [Adderall XR] 30 mg capsule,extended release 24hr 30 mg PO DAILY Qty: 30 0RF Rx Instructions: Partial Fill upon patient request. dextroamphetamine-amphetamine [Adderall] 30 mg tablet 30 mg PO .noon Qty: 30 0RF Rx Instructions: Partial Fill upon patient request. diazepam [Valium] 10 mg tablet 10 mg PO TID PRN (Reason: anxiety) Qty: 90 0RF potassium chloride 20 mEq tablet extended release 20 meq PO BID 7 Days Qty: 14 0RF prochlorperazine maleate 10 mg tablet 10 mg PO Q6H PRN (Reason: nausea and vomiting) Qty: 12 0RF Stand Alone Forms: Work/School Release Interventions: ED Discharge Assessment Last Done: 09/11/24 11:57 Discharge Date/Time: 09/11/24 11:58 Print Language: Azeri
--- OUTSIDE RECORDS SUMMARY | 2024-09-11 06:38 | XMS_ITS | Continuity of Care Document ---
Author Organization [facility] Address [address] [place] [address] [place] [id number] Phone [phone] Care Team Providers Care Area Intelligence Technician Name Role Phone KATHRINE LOPEZ M.D. Care Team Information Rec eiver Unavailable Social History Type Date Description Comments Sex Unknown
--- OUTSIDE RECORDS SUMMARY | 2024-09-11 06:38 | XMS_ITS | Data Portability ---
Author Organization [place] - [facility], [facility] Address [address] [place] [address] Assessment Encounter Date Assessment Date Assessment LastModified by Organization Details LastModified Time 05/23/2018 05/23/2018 routine OB ecoci Not available 15:50:14 05/31/2018 05/31/2018 routine OB ecoci Not available 01/2018 11:26:00 Plan of Treatment Reminders Order Date Submit Date Provider Last Modified By Organization Details Last Modified Time Details Appointments None recorded. Lab CT + NG DNA, PCR, unspecified specimen 2017 [facility], [address] [place], [address] 8 14:20:05 streptococc us group B DNA 2017 [facility], [address] [place], [address] 8 14:20:05 Referral None recorded. Procedures None recorded. Surgeries None recorded. Imaging non-stress test 2017 Sabas woodard In-Office Order, Internal Use Only DO Not Attach Compendium DO Not Attach Compendium, Do Not Delete/merge, [id number] 8 06:38:30 Medication Orders None recorded. Patient TargetsNo targets recorded. Patient Instructions Encounter Date Encounter Id Patient Instructions Last Modified By Organization Details Last Modified Time 05/17/2018 [id number] elevated blood pressure: care instructions Not available 05/29/2018 14:34:57 After Age 37: Care Instructions [email or web address] Not available 05/29/2018 14:34:57 Patient states that she has tried multiple obstetric practices closer to where she lives but no one will accept her as a transfer at this late date and also because she used alternative therapy for her Lyme disease. Reviewed with patient risks of chronic Lyme disease in and the risk of transmission to her . She understands all this and is anxious to establish care at this point. She denies any signs or symptoms of preeclampsia. Will check NST today and schedule ultrasound for growth. Not available 05/29/2018 14:40:28 05/31/2018 [id number] elevated blood pressure: care instructions Not available 06/06/2018 06:38:30 Reason for Referral None Reported. Results Created Date Observation Date Name Description Value Unit Range Abnormal Flag Note LastModifiedBy Organization Detail LastModifiedTime 05/17/2005/17/2018 non-s tress test EDC Not Available In-Office Order Internal Use Only DO Not Attach Compendium DO Not Attach Compendium, Do Not Delete/merge, [id number] 05/17/2018 13:47:03 05/17/20 18 05/17/2018 non-s tress test Weeks gestation by Ultras ound Not Available In-Office Order Internal Use Only DO Not Attach Compendium DO Not Attach Compendium, Do Not Delete/merge, [id number] 05/17/2018 13:47:03 05/17/20 18 05/17/2018 non-s tress test Heart Rate 14- Not Available In-Off ice Order Internal Use Only DO Not Attach Compendium DO Not Attach Compendium, Do Not Delete/merge, [id number] 05/17/2018 13:47:03 05/17/20 18 05/17/2018 non-s tress test FHR Baseline (bpm) 140 Not Available In-Off ice Order Internal Use Only DO Not Attach Compendium DO Not Attach Compendium, Do Not Delete/merge, [id number] 05/17/2018 13:47:03 05/17/20 18 05/17/2018 non-s tress test FHR Variability Modera te, 6-25 Not Available In-Office Order Internal Use Only DO Not Attach Compendium DO Not Attach Compendium, Do Not Delete/merge, [id number] 05/17/2018 13:47:03 05/17/20 05/17/2018 non-s tress test Acceleration s 140-18 0 Not Available In-Office Order Internal Use Only DO Not Attach Compendium DO Not Attach Compendium, Do Not Delete/merge, [id number] 05/17/2018 13:47:03 05/17/20 18 05/17/2018 non-s tress test Interpretati on REACTI VE Not Available In-Office Order Internal Use Only DO Not Attach Compendium DO Not Attach Compendium, Do Not Delete/merge, [id number] 05/17/2018 13:47:03 05/17/20 18 05/17/2018 non-s tress test Recommendati ons As clinic ally indica obie Not Available In-Office Order Internal Use Only DO Not Attach Compendium DO Not Attach Compendium, Do Not Delete/merge, [id number] 05/17/2018 13:47:03 05/23/20 18 05/24/2018 CT + NG DNA, PCR, unspe cifie d speci men source CVX Not Available [facility] [address] [place] [address], [id number] 05/25/2018 14:20:05 05/23/20 18 05/24/2018 CT + NG DNA, PCR, unspe cifie d speci men chlamydia by DNA Negati ve negati ve Not Available [facility] [address] [place] [address], [id number] 05/25/2018 14:20:05 05/23/20 18 05/24/2018 CT + NG DNA, PCR, unspe cifie d speci men GC by DNA Negati ve negati ve Not Available [facility] [address] [place] [address], [id number] 05/25/2018 14:20:05 05/23/20 18 05/25/2018 strep tococ cus group B DNA source V Not Available [facility] [address] [place] [address], [id number] 05/25/2018 14:20:05 05/23/20 18 05/25/2018 strep tococ cus group B DNA group B streptococcu s NOT DETECT ED not detect ed This assay was perfo rmed by [facility] [employer] pert( R) PCR. Note per CDC guide lines optim al recov fanny is achie marilou by swabb ing both the lower vagin a and rectu m (thro ugh the anal sphin cter) . Not Available [facility] [address] [place], [id number] 05/25/2018 14:20:05 05/31/20 18 05/31/2018 non-s tress test EDC Not Available In-Office Order Internal Use Only DO Not Attach Compendium DO Not Attach Compendium, Do Not Delete/merge, [id number] 05/31/2018 13:11:23 05/31/20 18 05/31/2018 non-s tress test Weeks gestation by Ultras ound Not Available In-Office Order Internal Use Only DO Not Attach Compendium DO Not Attach Compendium, Do Not Delete/merge, [id number] 05/31/2018 13:11:23 05/31/20 18 05/31/2018 non-s tress test Heart Rate 120 Not Available In-Off ice Order Internal Use Only DO Not Attach Compendium DO Not Attach Compendium, Do Not Delete/merge, [id number] 05/31/2018 13:11:23 05/31/20 18 05/31/2018 non-s tress test FHR Baseline (bpm) 120 Not Available In-Off ice Order Internal Use Only DO Not Attach Compendium DO Not Attach Compendium, Do Not Delete/merge, [id number] 05/31/2018 13:11:23 05/31/20 18 05/31/2018 non-s tress test FHR Variability Modera te, 6-25 Not Available In-Office Order Internal Use Only DO Not Attach Compendium DO Not Attach Compendium, Do Not Delete/merge, [id number] 05/31/2018 13:11:23 05/31/20 18 05/31/2018 non-s tress test Acceleration s 120-14 0 Not Available In-Office Order Internal Use Only DO Not Attach Compendium DO Not Attach Compendium, Do Not Delete/merge, [id number] 05/31/2018 13:11:23 05/31/20 18 05/31/2018 non-s tress test Interpretati on REACTI VE Not Available In-Office Order Internal Use Only DO Not Attach Compendium DO Not Attach Compendium, Do Not Delete/merge, [id number] 05/31/2018 13:11:23 11/07/20 18 05/31/2018 non-s tress test Recommendati ons As clinic ally indica obie Not Available In-Office Order Internal Use Only DO Not Attach Compendium DO Not Attach Compendium, Do Not Delete/merge, [id number] 05/31/2018 13:11:23 05/23/20 18 US, obste tric, 2nd or 3rd trime ster No observ ation record ed. Not Available 07/2017 07:42:03 Result Notes None recorded. Problems Name Problem SNOMED Code Status Onset Date Resolution Date Notes Provider Name and Address Organization Details Recorded Time Pregnanc y 43474210 Completed 201706/06/2018 Davina Barron null, [facility] 8 10:47:26 Hyperten sive disorder 86699242 Active 2017 Ashley Jones MA null, [facility] 8 11:32:09 Lyme disease 48136658 Active Chronic Lyme Disease, Amoxcill in x 3 weeks earlier in pregnanc y, plasmaph aresis in [place] Davina Barron null, [facility] 8 10:47:23 Advanced maternal age 723619786 Active Davina Barron null, [facility] 8 10:47:23 Advanced maternal age 736655488 Completed Davina Barron null, [facility] 8 10:47:23 Lyme disease 00873957 Completed Chronic Lyme Disease, Amoxcill in x 3 weeks earlier in pregnanc y, plasmaph aresis in [place] Davina Barron null, [facility] 8 10:47:23 Pregnanc y-induce d hyperten gurpreet 64009965 Completed Aldomet Davina Barron null, [facility] 8 10:47:23 Problem Notes None recorded. Procedures Surgical History Date Name Laterality Status Provider Name and Address Organization Details Recorded Time 05/17/20 18 T9C-SYOAL completed Ashley Jones MA [facility] 05/17/2018 13:52:49 Abdominoplasty completed Ashley Jones MA [place] - [facility] 05/17/2018 11:34:10 Imaging Results Imaging Date Name Status LastModified by Organiz ation Details LastModified Time 05/23/2018 US, obstetric, 2nd or 3rd trimester completed Information not available 05/25/2018 07:42:03 Procedure Notes None recorded. Medical Equipment None Reported. Allergies No known drug allergies Medications Name Sig Start Date Stop Date Status Note LastModified by Organization Details LastModified Time Aldomet 250 mg tablet Take 1 tablet twice a day by oral route. active Not Available Not Available No t Available Vitals Date Recorded Body weight Provider Name an d Address Organization Details Last Updated DateTime 05/17/2018 36379.60136 g Not Available [facility] Record 05/29/2018 14:41:32 Date Recorded Body weight Systolic blood pressure Diastolic blood pressure Provider Name and Address Organization Details Last Updated DateTime 05/23/2018 89175.8816 3 g 120 mm[Hg] 74 mm[Hg] Not Available [facility] [place] 05/23/2018 15:46:28 Date Recorded Body weight Systolic blood pressure Diastolic blood pressure Provider Name and Address Organization Details Last Updated DateTime 05/31/2018 68830.0663 7 g 130 mm[Hg] 90 mm[Hg] Not Available [facility] Record 05/31/2018 11:24:19 Social History Question Answer Notes LastModified by Organizat ion Details LastModified Time Tobacco Smoking Status Never Smoker Ashley Jones MA null, [place] - [facility] 05/17/2018 11:33:49 What Was The Date Of Your Most Recent Tobacco Screening? 05/17/2018 Information n ot available 02/14/2019 Sex: Unknown Functional Status None recorded. Mental Status None recorded. Family History Nothing Reported. Medical History Condition Response Other N *No Diseases or Conditions N Blood clots N Breast Cancer N Colon cancer N Benign breast disease N Lung Disease N Depression N Defects or Inherited Disease N Anesthesia Complications N Headaches/Migraines N Have you ever been on isolation N Anxiety Disorder N Arthritis N HSV N Infertility N Interstitial Cystitis N Abnormal pap N Acid Reflux (GERD) N Cancer N Stroke N Endometriosis N Fibromyalgia N Spina Bifida N HIV N Heart Problems N Sexual Dysfunction N Autoimmune disorder N Thyroid Problems N Kidney or Bladder Problems N GI Problems N Eating Disorder N Anemia N Multiple Sclerosis N Psychiatric Illness N Ovarian Cancer N Diabetes N Blood Transfusions N Bladder disease N History of MRSA N Abnormal Uterine Bleeding N Hyperlipidemia N BrCa positive N Diverticulitis N Abuse/Domestic Violence N Asthma N Hepatitis N Hypertension Y Osteoporosis N Thrombophilias N Gynecological HistoryNo gynecological history recorded. Obstetrics History GPAL:G 6 P 1 0 0 1 Type Value Full Term 1 Living 1 Total 6 Past Encounters Encounter ID Performer Location Encounter Start Date Encounter Closed Date Diagnosis/Indication Diagnosis SNOMED-CT Code Diagnosis ICD10 Code Diagnosis Note [id number] ANH CABALLERO MD [facility] [address] [place] [address] 05/17/2018 11:24:05 05/17/2018 13:25:29 Lyme disease 41042069 A69.20 Hypertensive disorder 38 638943 I10 82663950 Z33.1 Advanced m aternal age 829584140 O09.523 Routine an tenatal care 383117354 Z34.83 [id number] ANH CABALLERO MD [facility] [address] [place] [address] 05/23/2018 15:21:54 05/23/2018 16:17:27 Routine care 394264419 Z34.83 Venereal d isease screening 264043374 Z11.3 [id number] ANH CABALLERO MD [facility] [address] [place] [address] 05/31/2018 11:09:42 05/31/2018 13:18:30 Routine care 754664329 Z34.90 Hypertensive disorder 38 733497 I10 Gestation period, 37 weeks 79861991 Z3A.37 Health Concerns Section Related Observation LastModified by Organization Detai ls LastModified Time None Recorded Concern Status LastModified by Organization Details LastModified Time None Recorded Advance Directives Directive None Recorded Payers Encounter Date Sequence Insurance Name Policy Number Policy [place] Covered Member ID [place] Member ID Guarantor Name 05/17/2018 1 *SELF PAY* Radha Peralta 05/23/2018 1 *SELF PAY* Radha Peralta 05/31/2018 1 *SELF PAY* Radha aguileranicho Fabian Notes Date Note Type Note Provider Name and Address Organization Details Recorded Time 05/17/2018 text/html Patient presents for transfer of obstetric care at 35 weeks gestation. Patient's has been complicated by chronic Lyme disease for which she was treated with amoxicillin for 3 weeks earlier in the . Patient developed lymphadenopathy and decided to get alternative therapy in [place] which included plasmapheresis. Patient states that the plasmapheresis helped tremendously with the lymphadenopathy and she feels much better. While she was in [place] she developed slightly elevated blood pressures and was started on Aldomet. Her blood pressures have been normal since then. She also was given a single dose of Celestone for lung maturity in case of early delivery. Patient's previous was complicated by chronic Lyme's and she was treated with amoxicillin during that . That baby was negative for Lyme's. ANH CABALLERO MD [address] [place] [address], [address] Floor, [place], [address], [place] [facility] 05/29/2018 14:43:10 OBGyn Episode Ob Episode Information Episode Created Date Number of Fetuses Patient Bloodtype Patient rh Status Prepregnancy Weight lbs Domestic Partner Domestic Partner Phone Father Name Heliarc Welder Status 05/17/20 18 1 CLOSED Fetus Data First Name Last Name Admitted to NICU Weight (g) Sex Living Outcome Pediatric Complications Fetus ID Race Codes Race Delivery Type F [id number] Vaginal Delivery [place] Calculation Initial [place] Date Initial Exam Date Initial Exam Provider Initial Ultrasound Date Last Menstrual Period Date Ultra Sound Weeks Gestation 0 Eighteen To Twenty Week [place] Update Ultra Sound Date Fundal Height At Umbil Quickening Date Ultra Sound Latest Weeks Gestation Final [place] Confirmed By Final [place] Confirmed Date Final [place] Date Ultra Sound Latest Days Gestation 0 0 Menstrual History Last Menstrual Date Menses Monthly On Bcp Conception Prior Menses Frequency Hcg Plus Date Menarche Onset Age Delivery Information Delivery Date Delivery Type Labor Anesthesia Weeks Gestation Incision Type Labor Labor Length Hrs Delivered By Post Complications Tubal Sterilization Discharge Date Comments 5 Discharge Information Feeding Method Contraceptive Method Maternal HG B and HCT Levels Ob Episode Information Episode Created Date Number of Fetuses Patient Bloodtype Patient rh Status Prepregnancy Weight lbs Domestic Partner Domestic Partner Phone Father Name Heliarc Welder Status 05/17/20 18 1 CLOSED Fetus Data First Name Last Name Admitted to NICU Weight (g) Sex Living Outcome Pediatric Complications Fetus ID Race Codes Race Delivery Type [phone] [phone] F [id number] Vaginal Delivery Problems Problem Notes Problem Name Start Date End Date Resolution Snomed Code Not e Advanced maternal age 731589806 Lyme disease 10880423 Chronic Lyme Disease, Amoxcillin x 3 weeks earlier in , plasmapharesis in [place] -induced hypertension 85676980 Aldomet [place] Calculation Initial [place] Date Initial Exam Date Initial Exam Provider Initial Ultrasound Date Last Menstrual Period Date Ultra Sound Weeks Gestation 06/23/2018 05/17/2018 0 Eighteen To Twenty Week [place] Update Ultra Sound Date Fundal Height At Umbil Quickening Date Ultra Sound Latest Weeks Gestation Final [place] Confirmed By Final [place] Confirmed Date Final [place] Date Ultra Sound Latest Days Gestation 0 ecoci 05/17/2018 06/23/20 18 0 Pre- Flowsheet Flowsheet Date 05/17/2018 Eubanks Score Blood Edema Fundus Height Fundus Units Glucose Ketones Leukocytes Nitrite Labor Signs Protein Cervic Dilation Cervic Effacement Cervic Station trace 36 cm 1cm 50% -3 Type Weight in lbs Pre/Post Dialysis Refused 198.121498071396 BP Diastolic BP Location Tested BP Systolic BP Type Fetus Heart Rate Present A Present Fetus Movement A Yes Comments Patient states that she has tried multiple obstetric practices closer to where she lives but no one will accept her as a transfer at this late date and also because she used alternative therapy for her Lyme disease. Reviewed with patient risks of chronic Lyme disease in and the risk of transmission to her . She understands all this and is anxious to establish care at this point. She denies any signs or symptoms of preeclampsia. Will check NST today and schedule ultrasound for growth. Flowsheet Date 05/23/2018 Eubanks Score Blood Edema Fundus Height Fundus Units Glucose Ketones Leukocytes Nitrite Labor Signs Protein Cervic Dilation Cervic Effacement Cervic Station trace 38 cm 1cm 50% -3 Type Weight in lbs Pre/Post Dialysis Refused 199.212485451755 BP Diastolic BP Location Tested BP Systolic BP Type 74 120 Fetus Heart Rate Present A Present Fetus Movement A Yes Comments PT UNABLE TO LEAVE URINE-pat ient complaining of [place] [employer] contractions. Discussed with MFM patient's case with chronic Lyme and plasmapheresis treatments. Nothing to do at this point but to make neonatology aware of positive Lyme titer earlier in the . Ultrasound shows size equal to dates. Blood pressure stable on Aldomet. Flowsheet Date 05/31/2018 Eubanks Score Blood Edema Fundus Height Fundus Units Glucose Ketones Leukocytes Nitrite Labor Signs Protein Cervic Dilation Cervic Effacement Cervic Station trace 38 cm trace 2cm 50% -3 Type Weight in lbs Pre/Post Dialysis Refused 201.248979848035 BP Diastolic BP Location Tested BP Systolic BP Type 90 130 Fetus Heart Rate Present A 150 Fetus Movement A Yes Comments PT UNABLE TO LEAVE URINE-maria luisa ctive NST. Plan on induction of labor next week for chronic hypertension. Menstrual History Last Menstrual Date Menses Monthly On Bcp Conception Prior Menses Frequency Hcg Plus Date Menarche Onset Age Genetic Screening And Infection History Question Response Note Patient's Age Will Be 35 Yea rs Or Older At Estimated Date of Delivery true Thalassemia (Korean, Mozambican, Mediterranean, Or Background): MCV < 80 false Neural Tube Defect (Meningom yelocele, Spina Bifida, Or Anencephaly) false Congenital Heart Defect false Down Syndrome false Grzegorz-Sachs (eg, Baptist, Cajun, Wolof-South African) f alse Mahsa Disease false Sickle Cell Disease Or Trait () false Hemophilia Or Other Blood Disorders false Muscular Dystrophy false Cystic Fibrosis false Ruy's Chorea false Mental Retardation/Autism false If Yes, Was Person Tested For Fragile X? false Other Inherited Genetic Or Chromosomal Disorder false Maternal Metabolic Disorder (eg, Type 1 Diabetes , PKU) false Patient Or Baby's Father Had A Child With Defects Not Listed Above false Recurrent Loss, Or A Stillbirth false Medications (including Suppl ements, Vitamins, Herbs, OTC Drugs), Illicit/Recreational Drugs, Alcohol false If Yes, Agent(s) And Strength/Dosage false Any Other Genetic History false Live With Someone With TB Or Exposed To TB false Patient Or Partner Has History Of Genital Herpes false Rash Or Viral Illness Since Last Menstrual Perio d false History Of STD, Gonorrhea, Chlamydia, HPV, Syphi lis false Other Infection History true Chronic Lyme Disease Familial Dysautonomia (Ashkenazi Baptist) false Spinal Muscular Atrophy false Parkinson Disease false History of HIV false History of Hepatitis false Prior GBS-infected child false Delivery Information Delivery Date Delivery Type Labor Anesthesia Weeks Gestation Incision Type Labor Labor Length Hrs Delivered By Post Complications Tubal Sterilization Discharge Date Comments 8 37.3 christopher 4 Discharge Information Feeding Method Contraceptive Method Maternal HG B and HCT Levels
--- OUTSIDE RECORDS SUMMARY | 2024-09-11 06:38 | XMS_ITS | Data Portability ---
Author Organization [facility], , [facility] Address [address] [place] [address] Assessment Encounter Date Assessment Date Assessment LastModified [...] T3, free, serum or plasma 2015 016 [facility], [address] [place], [address], 6 08:39:02 T4, free, serum - Adelso Rivas MD 2015 016 [facility], [address] [place] [address], [address], 6 11:14:48 TSH, serum or plasma - Adelso Rivas MD [address] [facility], [address] [place] [address], [address], 6 09:40:56 prolactin, serum 2015 016 [facility], [address] [place] [address], [address], 6 09:41:24 T3, free, serum or plasma 2015 016 [facility], [address] [place] [address], [address], 6 06:02:21 T4, free, serum - Adelso Rivas MD 2015 016 [facility], [address] [place] [address], [address], 6 17:02:00 TSH, serum or plasma - Adelso Rivas MD [address], [address] [place] [address], [address], 6 09:40:56 Referral tap builder & immunologis t referral - 39yo female w/ frequent headaches and hx allergies (used to receive injections) needs further evaluation and treatment. Thanks. 2015 Scot Ashly Hernandez MD, [address] [place] [address], [address], 6 04:01:49 neurologist referral - 39yo female w/ apparent hypophysiti s (formerly followed by Adelso Rivas MD) and family hx migraine has intermitten t very severe headaches, needs further evaluation and treatment. Thanks. 2015 016 [email or web address] Not available 08:30:14 Procedures None recorded. Surgeries None recorded. Imaging None recorded. Medication Orders fluticasone propionate 50 mcg/actuati on nasal spray,suspe nsion 2015 016 [facility]94, [address] [place] [address], [address], 6 04:01:47 oxycodone 5 mg tablet 2015 016 DBA_PATCH [id number] [facility]1094, [address] [place] [address], [address], 6 04:01:44 oxycodone 5 mg tablet 2015 016 [email or web address] [facility]10[facility], [address] [place] [address], [address], 6 08:51:05 [place] Thyroid 15 mg tablet 2015 016 [email or web address] [facility]1094, [address] [place] [address], [address], 6 08:50:26 [place] Thyroid 30 mg tablet 2015 016 [email or web address] [facility]1094, [address] [place] [address], [address], 6 08:50:30 oxycodone 5 mg tablet 2014 015 [email or web address] [facility], [address] [place] [address], [address], 6 08:51:05 alprazolam 1 mg tablet 2014 015 [email or web address] [facility], [address] [place] [address], [address], 6 16:12:27 Patient TargetsNo targets recorded. Patient Instructions Encounter Date Encounter Id Patient Instructions Last Modified By Organization Details Last Modified Time 06/12/2015 [id number] Follow up as needed. [email or web address] Not available 06/12/2015 15:05:05 08/25/2015 [id number] -trial of restarting armour thyroid extract 45mg (30mg and 15mg tab) by mouth daily -please consider more regular sleep if possible, involve with feedings, have more time for you to recreate and exercise -labs now and 2mo -clinic 9 weeks [email or web address] Not available 08/25/2015 09:07:33 08/26/2015 [id number] Follow up as needed. Not available 08/26/2015 10:04:30 12/05/2015 [id number] Follow up with specialists as planned. Try the Flonase for now. Discussed indications for new prescription(s), risks and benefits of medication(s), common side effects and how to manage them, and reasons to notify prescriber of adverse effects or discontinuation. Not available 12/05/2015 21:50:06 Checked SLOT EDITOR -- appropriate. Not available 12/05/2015 16:51:54 04/16/2016 [id number] Please follow up with Fiona Ramirez NP, next week as discussed. Not available 04/16/2016 22:27:42 Reason for Referral Neurologist Referral for Dis order of pituitary gland 39yo female w/ apparent hypophysitis (formerly followed by Adelso Rivas MD) and family hx migraine has intermittent very severe headaches, needs further evaluation and treatment. Thanks. Referring Physician: Coco Livingston, Family Medicine, Encounter Date: 08/26/2015 [employer] Operator Ref erral for Allergic rhinitis 39yo female w/ frequent headaches and hx allergies (used to receive injections) needs further evaluation and treatment. Thanks. Referring Physician: Coco Livingston [facility], Encounter Date: 12/05/2015 Results Created Date Observation Date Name Description Value Unit Range Abnormal Flag Note LastModifiedBy Organization Detail LastModifiedTime 09/29/19 16 09/30/2015 T3, free, serum or plasm a T3, free 4.1 pg/mL 2.3-4. 2 normal Not Available [facility] [place] [facility] [address] [place], [place], [address], 09/30/2015 08:39:01 09/29/19 16 09/30/2015 T4, free, serum free T4 1.15 NG/dL 0.75-1 .54 Not Available [address], [address], 09/30/2015 11:14:48 09/29/19 16 09/30/2015 TSH, serum or plasm a TSH <0.01 uIU/m L 0.50-6 .00 low < The Ameri can Colle ge of Endoc rinol ogy and Ameri can Thyro id Assoc iatio n recom mend goal TSH value s betwe en 0.4-4 .0 mIU/m L. Not Available [address], [address], 09/30/2015 17:56:57 09/29/19 16 10/02/2015 prola ctin, serum prolactin 18.5 NG/mL Male: 3.3 - 20.8 ng/mL Femal e: Preme nopau alexi: 2.1 - 47.6 ng/mL Postm enopa usal: 0 - 41.1 ng/mL Not Available [address], [address], 10/02/2015 09:41:24 11/11/19 16 11/11/2015 T4, free, serum free T4 0.43 NG/dL 0.75-1 .54 low Not Available [address], [address], 11/11/2015 17:02:00 11/11/19 16 11/12/2015 T3, free, serum or plasm a T3, free 2.5 pg/mL 2.3-4. 2 normal Not Available [facility] [place] [facility] [address] [place], [place], [address], 11/12/2015 06:02:21 11/11/19 16 11/12/2015 TSH, serum or plasm a TSH 7.99 uIU/m L 0.50-6 .00 high The Luis can Colle ge of Endoc rinol ogy and Luis can Thyro id Assoc iatio n recom mend goal TSH value s betwe en 0.4-4 .0 mIU/m L. Not Available [address], [address], 11/12/2015 09:38:18 12/05/19 16 12/08/2015 drug scree n, urine amphetamine NEG. negati ve Not Available [address], [address], 12/08/2015 14:31:33 12/05/19 16 12/08/2015 drug scree n, urine barbiturates NEG. negati ve Not Available [address], [address], 12/08/2015 14:31:33 12/05/19 16 12/08/2015 drug scree n, urine benzodiazepi ne POS. negati ve GCMS= Sampl e sent to [facility] for confi rmati on by GC/MS . Not Available [address], [address], 12/08/2015 14:31:33 12/05/19 16 12/08/2015 drug scree n, urine cocaine NEG. negati ve Not Available [address], [address], 12/08/2015 14:31:33 12/05/19 16 12/08/2015 drug scree n, urine opiates POS. negati ve GCOP= Urine sampl e sent to [facility] for confi rmati on of opiat es by GC/MS . Not Available [address], [address], 12/08/2015 14:31:33 12/05/19 16 12/08/2015 drug scree n, urine methadone NEG. negati ve Syva EMIT II Limit s of Detec tion (cutt -off value s) [place] Expan d: Amphe tamin es: 1000 ng/ml Opiat es: 300 ng/ml Isela tuate s: 200 ng/ml Canna binoi ds: 50 ng/ml Benzo diaze pines : 200 ng/ml Phenc yclid ine: 25 ng/ml Cocai ne: 300 ng/ml Metha done: 300 ng/ml Not Available [address], [address], 12/08/2015 14:31:33 12/05/19 16 12/10/2015 opiat es, quant itati ve, urine codeine NEGATI VE NG/mL <50 Not Available [facility] [address], [address], 12/10/2015 17:29:57 12/05/19 16 12/10/2015 opiat es, quant itati ve, urine hydrocodone NEGATI VE NG/mL <50 Not Available [facility] [place] [facility] [address], [address], 12/10/2015 17:29:57 12/05/19 16 12/10/2015 opiat es, quant itati ve, urine hydromorphon e NEGATI VE NG/mL <50 Not Available [facility] [address], [address], 12/10/2015 17:29:57 12/05/19 16 12/10/2015 opiat es, quant itati ve, urine morphine 3770 NG/mL <50 high Not Available [facility] [address], [address], 12/10/2015 17:29:57 12/05/19 16 12/10/2015 opiat es, quant itati ve, urine norhydrocodo ne NEGATI VE NG/mL <50 Not Available [facility] [address] [place], [address], 12/10/2015 17:29:57 12/05/19 16 12/10/2015 opiat es, quant itati ve, urine noroxycodone NEGATI VE NG/mL <50 Not Available [facility] [place] [facility] [address], [place], [address], 12/10/2015 17:29:57 12/05/19 16 12/10/2015 opiat es, quant itati ve, urine oxycodone NEGATI VE NG/mL <50 Not Available [facility] [place] [facility] [address], [place], [address], 12/10/2015 17:29:57 12/05/19 16 12/10/2015 opiat es, quant itati ve, urine oxymorphone NEGATI VE NG/mL <50 Not Available [facility] [place] [facility] [address], [place], [address], 12/10/2015 17:29:57 12/05/19 16 12/10/2015 benzo diaze pine, quant itati ve, urine alphahydroxy alprazolam 102 NG/mL <25 high Not Available [facility] [place] [facility] [address], [place], [address], 12/10/2015 17:29:57 12/05/19 16 12/10/2015 benzo diaze pine, quant itati ve, urine alphahydroxy midazolam NEGATI VE NG/mL <50 Not Available [facility] [place] [facility] [address], [place], [address], 12/10/2015 17:29:57 12/05/19 16 12/10/2015 benzo diaze pine, quant itati ve, urine alphahydroxy triazolam NEGATI VE NG/mL <50 Not Available [facility] [place] [facility] [address], [place], [address], 12/10/2015 17:29:57 12/05/19 16 12/10/2015 benzo diaze pine, quant itati ve, urine aminoclonaze alize NEGATI VE NG/mL <25 Not Available [facility] [place] [facility] [address], [place], [address], 12/10/2015 17:29:57 12/05/19 16 12/10/2015 benzo diaze pine, quant itati ve, urine hydroxyethyl flurazepam NEGATI VE NG/mL <50 Not Available [facility] [place] [facility] [address], [place], [address], 12/10/2015 17:29:57 12/05/19 16 12/10/2015 benzo diaze pine, quant itati ve, urine lorazepam NEGATI VE NG/mL <50 Not Available [facility] [place] [facility] [address], [place], [address], 12/10/2015 17:29:57 12/05/19 16 12/10/2015 benzo diaze pine, quant itati ve, urine nordiazepam NEGATI VE NG/mL <50 Not Available [facility] [place] [facility] [address], [place], [address], 12/10/2015 17:29:57 12/05/19 16 12/10/2015 benzo diaze pine, quant itati ve, urine oxazepam NEGATI VE NG/mL <50 Not Available [facility] [place] [facility] [address], [place], [address], 12/10/2015 17:29:57 12/05/19 16 12/10/2015 benzo diaze pine, quant itati ve, urine temazepam NEGATI VE NG/mL <50 Not Available [facility] [place] [facility] [address], [address], 12/10/2015 17:29:57 01/15/20 16 01/15/2016 TSH, serum or plasm a TSH 2.51 uIU/m L 0.50-6 .00 The Ameri can Colle ge of Endoc rinol ogy and Ameri can Thyro id Assoc iatio n recom mend goal TSH value s shorty en 0.4-4 .0 mIU/m L. Not Available [address], [address], 01/15/2016 12:38:59 01/15/20 16 01/16/2016 T3, free, serum or plasm a T3, free 2.6 pg/mL 2.3-4. 2 normal Not Available [facility] [address], [place], [address], 01/16/2016 02:53:09 01/15/20 16 01/16/2016 T4, free, serum free T4 0.53 NG/dL 0.75-1 .54 low Not Available [address], [address], 01/16/2016 09:31:52 06/18/20 21 06/18/2021 CPK (CREA CLAIRE KINAS E) creatine kinase 42 U/L 21-215 Not Available [facility] (Out[facility]) [address] [place] [address], [address], 06/18/2021 14:15:02 06/18/20 21 06/19/2021 LYME SCREE N WITH REFLE X TO WESTE RN BLOT, BLOOD lyme Ab IgG NEGATI VE negati ve Not Available [facility] (Outpatient) [address] [place], [address], 06/19/2021 10:50:16 06/18/20 21 06/19/2021 LYME SCREE N WITH REFLE X TO WESTE RN BLOT, BLOOD lyme Ab IgM NEGATI VE negati ve Not Available [facility] (Outpatient) [address] [place], [address], 06/19/2021 10:50:16 06/18/20 21 06/22/2021 EHRLI LALI/ ANAPL ASMA PCR anaplasma phagocyto NEGATI VE negati ve Not Available [facility] (Outpatient) [address] [place], [address], 06/22/2021 10:06:37 06/18/20 21 06/22/2021 EHRLI LALI/ ANAPL ASMA PCR ehrlichia chaffeens NEGATI VE negati ve Not Available [facility] (Outpatient) [address] [place] [address], [address], 06/22/2021 10:06:37 06/18/20 21 06/22/2021 EHRLI LALI/ ANAPL ASMA PCR ehrl ewingii/cani s NEGATI VE negati ve Not Available [facility] (Outpatient) [address] [place] [address], [address], 06/22/2021 10:06:37 06/18/20 21 06/22/2021 EHRLI LALI/ ANAPL ASMA PCR ehrl muris-like NEGATI VE negati ve Not Available [facility] ([facility]) [address] [place] [address], [address], 06/22/2021 10:06:37 06/18/20 21 06/22/2021 BABES IA SPECI ES PCR B.microti PCR NEGATI VE negati ve Not Available [facility] (Outpatient) [address] [place], [address], 06/22/2021 21:45:34 06/18/20 21 06/22/2021 BABES IA SPECI ES PCR B.duncani PCR NEGATI VE negati ve Not Available [facility] ([facility]) [address] [place] [address], [address], 06/22/2021 21:45:34 06/18/20 21 06/22/2021 BABES IA SPECI ES PCR B.divergens/ MO-1 PCR NEGATI VE negati ve Not Available [facility] ([facility]patient) [address] [place], [address], 06/22/2021 21:45:34 06/18/20 21 06/18/2021 BLOOD CULTU RE, ROUTI NE special requests NONE Not Available [facility] ([facility]patient) [address] [place], [address], 06/23/2021 08:30:51 06/18/20 21 06/23/2021 BLOOD CULTU RE, ROUTI NE blood culture NO GROWTH 5 DAYS Not Available [facility] ([facility]patient) [address] [place], [address], 06/23/2021 08:30:51 06/18/20 21 06/18/2021 BLOOD CULTU RE, ROUTI NE special requests NONE Not Available [facility] (Outpatient) [address] [place], [address], 06/23/2021 08:30:53 06/18/20 21 06/23/2021 BLOOD CULTU RE, ROUTI NE blood culture NO GROWTH 5 DAYS Not Available [facility] ([facility]) [address] [place], [address], 06/23/2021 08:30:53 06/19/20 21 06/19/2021 CBC AND DIFFE RENTI AL WBC 9.47 K/uL 4.00-1 1.00 Not Available [facility] [address] [place], [address], 06/19/2021 07:15:41 06/19/20 21 06/19/2021 CBC AND DIFFE RENTI AL RBC 3.58 M/uL 3.72-5 .30 low Not Available [facility] ([facility]patient) [address] [place], [address], 06/19/2021 07:15:41 06/19/20 21 06/19/2021 CBC AND DIFFE RENTI AL HGB 10.4 g/dL 10.6-1 5.5 low Cosby d and notif ied to Florina Luis at N3. Not Available [facility] ([facility]) [address] [place] [address], [address], 06/19/2021 07:15:41 06/19/20 21 06/19/2021 CBC AND DIFFE RENTI AL HCT 31.2 % 32.0-4 5.0 low Not Available [facility] ([facility]) [address] [place] [address], [address], 06/19/2021 07:15:41 06/19/20 21 06/19/2021 CBC AND DIFFE RENTI AL plt 271 K/uL 140-43 0 Not Available [facility] ([facility]) [address] [place] [address], [address], 06/19/2021 07:15:41 06/19/20 21 06/19/2021 CBC AND DIFFE RENTI AL MCV 87.2 fL 78.0-9 7.0 Not Available [facility] ([facility]) [address] [place] [address], [address], 06/19/2021 07:15:41 06/19/20 21 06/19/2021 CBC AND DIFFE RENTI AL MCH 29.1 pg 25.0-3 3.0 Not Available [facility]) [address] [place] [address], [address], 06/19/2021 07:15:41 06/19/20 21 06/19/2021 CBC AND DIFFE RENTI AL MCHC 33.3 g/dL 32.0-3 6.0 Not Available [facility]) [address] [place] [address], [address], 06/19/2021 07:15:41 06/19/20 21 06/19/2021 CBC AND DIFFE RENTI AL RDW 13.3 % 11.0-1 6.0 Not Available [facility]) [address] [place], [address], 06/19/2021 07:15:41 06/19/20 21 06/19/2021 CBC AND DIFFE RENTI AL MPV 9.8 fL 8.4-12 .8 Not Available [facility] ([facility]) [address] [place], [address], 06/19/2021 07:15:41 06/19/20 21 06/19/2021 CBC AND DIFFE RENTI AL NRBC 0.00 /100_ WBCs 0 Not Available [facility]) [address] [place] [address], [address], 06/19/2021 07:15:41 06/19/20 21 06/19/2021 CBC AND DIFFE RENTI AL absolute NRBC 0.00 K/uL 0 Not Available [facility] ([facility]patient) [address] [place], [address], 06/19/2021 07:15:41 06/19/20 21 06/19/2021 CBC AND DIFFE RENTI AL diff method AUTO Not Available [facility] ([facility]) [address] [place] [address], [address], 06/19/2021 07:15:41 06/19/20 21 06/19/2021 CBC AND DIFFE RENTI AL neuts 79.9 % 43.0-7 5.0 high Not Available [facility]) [address] [place] [address], [address], 06/19/2021 07:15:41 06/19/20 21 06/19/2021 CBC AND DIFFE RENTI AL lymphs 10.9 % 18.2-4 7.4 low Not Available [facility] ([facility]) [address] [place] [address], [address], 06/19/2021 07:15:41 06/19/20 21 06/19/2021 CBC AND DIFFE RENTI AL monos 7.4 % 4.00-1 1.00 Not Available [facility] ([facility]) [address] [place] [address], [address], 06/19/2021 07:15:41 06/19/20 21 06/19/2021 CBC AND DIFFE RENTI AL eos 1.3 % 0.0-8. 0 Not Available [facility] ([facility]) [address] [place] [address], [address], 06/19/2021 07:15:41 06/19/20 21 06/19/2021 CBC AND DIFFE RENTI AL basos 0.2 % 0.0-2. 0 Not Available [facility]) [address] [place] [address], [address], 06/19/2021 07:15:41 06/19/20 21 06/19/2021 CBC AND DIFFE RENTI AL granulocytes , immature (%) 0.3 % 0.0-0. 9 Not Available [facility]) [address] [place] [address], [address], 06/19/2021 07:15:41 06/19/20 21 06/19/2021 CBC AND DIFFE RENTI AL absolute neuts 7.57 K/uL 1.80-7 .70 Not Available [facility] ([facility]) [address] [place] [address], [address], 06/19/2021 07:15:41 06/19/20 21 06/19/2021 CBC AND DIFFE RENTI AL absolute lymphs 1.03 K/uL 1.00-3 .10 Not Available [facility] ([facility]) [address] [place] [address], [address], 06/19/2021 07:15:41 06/19/20 21 06/19/2021 CBC AND DIFFE RENTI AL absolute monos 0.70 K/uL 0.20-0 .80 Not Available [facility] ([facility]) [address] [place], [address], 06/19/2021 07:15:41 06/19/20 21 06/19/2021 CBC AND DIFFE RENTI AL absolute eos 0.12 K/uL 0.00-0 .80 Not Available [facility] ([facility]) [address] [place], [address], 06/19/2021 07:15:41 06/19/20 21 06/19/2021 CBC AND DIFFE RENTI AL absolute basos 0.02 K/uL 0.00-0 .09 Not Available [facility] ([facility]) [address] [place], [address], 06/19/2021 07:15:41 06/19/20 21 06/19/2021 CBC AND DIFFE RENTI AL granulocytes , immature 0.03 K/uL 0.00-0 .05 Not Available [facility] ([facility]) [address] [place], [address], 06/19/2021 07:15:41 06/19/20 21 06/19/2021 COMPR EHENS DHAVAL METAB OLIC PANEL sodium 137 mmol/ L 133-14 6 Not Available [facility]) [address] [place] [address], [address], 06/19/2021 07:24:47 06/19/20 21 06/19/2021 COMPR EHENS DHAVAL METAB OLIC PANEL potassium 3.7 mmol/ L 3.3-5. 1 Not Available [facility] ([facility]) [address] [place] [address], [address], 06/19/2021 07:24:47 06/19/20 21 06/19/2021 COMPR EHENS DHAVAL METAB OLIC PANEL chloride 103 mmol/ L 96-108 Not Available [facility] ([facility]) [address] [place], [address], 06/19/2021 07:24:47 06/19/20 21 06/19/2021 COMPR EHENS DHAVAL METAB OLIC PANEL CO2 22 mmol/ L 21-35 Not Available [facility] ([facility]) [address] [place], [address], 06/19/2021 07:24:47 06/19/20 21 06/19/2021 COMPR EHENS DAHVAL METAB OLIC PANEL BUN 8 mg/dL 6-19 Not Available [facility] ([facility]patient) [address] [place], [address], 06/19/2021 07:24:47 06/19/20 21 06/19/2021 COMPR EHENS DHAVAL METAB OLIC PANEL creatinine 0.30 mg/dL 0.5-1. 5 low Not Available [facility] ([facility]patient) [address] [place], [address], 06/19/2021 07:24:47 06/19/20 21 06/19/2021 COMPR EHENS DHAVAL METAB OLIC PANEL glucose 86 mg/dL 70-99 Not Available [facility] ([facility]patient) [address] [place], [address], 06/19/2021 07:24:47 06/19/20 21 06/19/2021 COMPR EHENS DHAVAL METAB OLIC PANEL albumin 3.4 g/dL 3.9-4. 8 low Not Available [facility]) [address] [place], [address], 06/19/2021 07:24:47 06/19/20 21 06/19/2021 COMPR EHENS DHAVAL METAB OLIC PANEL total protein 5.8 g/dL 6.5-8. 0 low Not Available [facility] ([facility]) [address] [place], [address], 06/19/2021 07:24:47 06/19/20 21 06/19/2021 COMPR EHENS DHAVAL METAB OLIC PANEL calcium 8.5 mg/dL 8.4-10 .3 Not Available [facility] ([facility]) [address] [place] [address], [address], 06/19/2021 07:24:47 06/19/20 21 06/19/2021 COMPR EHENS DHAVAL METAB OLIC PANEL alkaline phosphatase 39 U/L 39-117 Not Available [facility] (Out[facility]) [address] [place] [address], [address], 06/19/2021 07:24:47 06/19/20 21 06/19/2021 COMPR EHENS DHAVAL METAB OLIC PANEL total bilirubin 0.3 mg/dL 0.0-1. 2 Not Available [facility]) [address] [place] [address], [address], 06/19/2021 07:24:47 06/19/20 21 06/19/2021 COMPR EHENS DHAVAL METAB OLIC PANEL AST 13 U/L 0-37 Not Available [facility]) [address] [place] [address], [address], 06/19/2021 07:24:47 06/19/20 21 06/19/2021 COMPR EHENS DHAVAL METAB OLIC PANEL ALT 16 U/L 0-40 Not Available [facility]) [address] [place] [address], [address], 06/19/2021 07:24:47 06/19/20 21 06/19/2021 COMPR EHENS DHAVAL METAB OLIC PANEL globulin 2.4 g/dL 1-4.8 Not Available [facility]) [address] [place] [address], [address], 06/19/2021 07:24:47 06/19/20 21 06/19/2021 COMPR EHENS DHAVAL METAB OLIC PANEL eGFR >120 mL/mi n/1.7 3m2 >59 Estim ated glome rular filtr ation rate calcu lated using the CKD-E PI equat ion. Not Available [facility] [address] [place], [address], 06/19/2021 07:24:47 06/19/20 21 06/19/2021 COMPR EHENS DHAVAL METAB OLIC PANEL anion gap 16 mmol/ L 10-20 Not Available [facility]) [address] [place], [address], 06/19/2021 07:24:47 06/19/20 21 06/19/2021 MAGNE SIUM magnesium 1.6 mg/dL 1.6-2. 6 Not Available [facility] ([facility]) [address] [place], [address], 06/19/2021 07:24:48 06/19/20 21 06/19/2021 VITAM IN B12 vitamin B12 352 pg/mL 232-12 45 Not Available [facility] ([facility] [address] [place], [address], 06/19/2021 07:40:38 06/19/20 21 06/19/2021 COVID HUMBERTO KELLEY RESPI RATOR Y VIRAL ORDER (PRO) test ordered RAPID COVID HAS BEEN ORDERE D Not Available [facility]) [address] [place] [address], [id number], 06/19/2021 10:34:30 06/19/20 21 06/19/2021 COVID HUMBERTO KELLEY RESPI RATOR Y VIRAL ORDER (PRO) specimen source NASAL Not Available [facility]) [address] [place] [address], [address], 06/19/2021 10:34:30 06/19/20 21 06/19/2021 COVID HUMBERTO [...] rizat ion can be found at the [employer] links : For Healt hcare Provi ders: https ://[employer] .gov/ media /6436 23/do wnloa d For Patie nts: https ://[employer] .gov. media /4800 24/do wnloa d. Not Available [facility] (Outpatient) [address] [place] [address], [id number], 06/19/2021 10:34:30 06/19/20 21 06/21/2021 LACHELLE DAPHNE SEROL OGY B.henselae Ab, IgG <1:128 titer <1:128 Not Available [facility] (Outpatient) [address] [place] [address], [address], 06/21/2021 15:30:35 06/19/20 21 06/21/2021 LACHELLE DAPHNE SEROL OGY B.henselae Ab, IgM <1:20 titer <1:20 Not Available [facility] (Outpatient) [address] [place], [address], 06/21/2021 15:30:35 06/19/20 21 06/21/2021 LACHELLE DAPHNE SEROL OGY B.renae Ab, IgG <1:128 titer <1:128 Not Available [facility] (Outpatient) [address] [place], [address], 06/21/2021 15:30:35 06/19/20 21 06/21/2021 LACHELLE DAPHNE SEROL OGY B.renae Ab, IgM <1:20 titer <1:20 Not Available [facility] (Outpatient) [address] [place] [address], [id number], 06/21/2021 15:30:35 06/20/20 21 06/20/2021 CBC AND DIFFE RENTI AL WBC 7.66 K/uL 4.00-1 1.00 Not Available [facility] (Outpatient) [address] [place] [address], [address], 06/20/2021 06:59:28 06/20/20 21 06/20/2021 CBC AND DIFFE RENTI AL RBC 3.54 M/uL 3.72-5 .30 low Not Available [facility] (Outpatient) [address] [place] [address], [address], 06/20/2021 06:59:28 06/20/20 21 06/20/2021 CBC AND DIFFE RENTI AL HGB 10.5 g/dL 10.6-1 5.5 low Not Available [facility] (Outpatient) [address] [place] [address], [id number], 06/20/2021 06:59:28 06/20/20 21 06/20/2021 CBC AND DIFFE RENTI AL HCT 30.9 % 32.0-4 5.0 low Not Available [facility] (Outpatient) [address] [place] [address], [id number], 06/20/2021 06:59:28 06/20/20 21 06/20/2021 CBC AND DIFFE RENTI AL plt 302 K/uL 140-43 0 Not Available [facility] (Outpatient) [address] [place] [address], [id number], 06/20/2021 06:59:28 06/20/20 21 06/20/2021 CBC AND DIFFE RENTI AL MCV 87.3 fL 78.0-9 7.0 Not Available [facility] (Outpatient) [address] [place] [address], [id number], 06/20/2021 06:59:28 06/20/20 21 06/20/2021 CBC AND DIFFE RENTI AL MCH 29.7 pg 25.0-3 3.0 Not Available [facility] (Outpatient) [address] [place], [address], 06/20/2021 06:59:28 06/20/20 21 06/20/2021 CBC AND DIFFE RENTI AL MCHC 34.0 g/dL 32.0-3 6.0 Not Available [facility] (Outpatient) [address] [place], [address], 06/20/2021 06:59:28 06/20/20 21 06/20/2021 CBC AND DIFFE RENTI AL RDW 13.2 % 11.0-1 6.0 Not Available [facility] (Outpatient) [address] [place] [address], [address], 06/20/2021 06:59:28 06/20/20 21 06/20/2021 CBC AND DIFFE RENTI AL MPV 10.2 fL 8.4-12 .8 Not Available [facility] (Outpatient) [address] [place] [address], [address], 06/20/2021 06:59:28 06/20/20 21 06/20/2021 CBC AND DIFFE RENTI AL NRBC 0.00 /100_ WBCs 0 Not Available [facility] (Outpatient) [address] [place], [address], 06/20/2021 06:59:28 06/20/20 21 06/20/2021 CBC AND DIFFE RENTI AL absolute NRBC 0.00 K/uL 0 Not Available [facility] (Outpatient) [address] [place] [address], [address], 06/20/2021 06:59:28 06/20/20 21 06/20/2021 CBC AND DIFFE RENTI AL diff method AUTO Not Available [facility] (Outpatient) [address] [place], [address], 06/20/2021 06:59:28 06/20/20 21 06/20/2021 CBC AND DIFFE RENTI AL neuts 71.9 % 43.0-7 5.0 Not Available [facility] (Outpatient) [address] [place], [address], 06/20/2021 06:59:28 06/20/20 21 06/20/2021 CBC AND DIFFE RENTI AL lymphs 15.9 % 18.2-4 7.4 low Not Available [facility] (Outpatient) [address] [place], [address], 06/20/2021 06:59:28 06/20/20 21 06/20/2021 CBC AND DIFFE RENTI AL monos 8.9 % 4.00-1 1.00 Not Available [facility] (Outpatient) [address] [place], [address], 06/20/2021 06:59:28 06/20/20 21 06/20/2021 CBC AND DIFFE RENTI AL eos 2.6 % 0.0-8. 0 Not Available [facility] (Outpatient) [address] [place], [address], 06/20/2021 06:59:28 06/20/20 21 06/20/2021 CBC AND DIFFE RENTI AL basos 0.4 % 0.0-2. 0 Not Available [facility] (Outpatient) [address] [place], [address], 06/20/2021 06:59:28 06/20/20 21 06/20/2021 CBC AND DIFFE RENTI AL granulocytes , immature (%) 0.3 % 0.0-0. 9 Not Available [facility] (Outpatient) [address] [place], [address], 06/20/2021 06:59:28 06/20/20 21 06/20/2021 CBC AND DIFFE RENTI AL absolute neuts 5.51 K/uL 1.80-7 .70 Not Available [facility] (Outpatient) [address] [place], [address], 06/20/2021 06:59:28 06/20/20 21 06/20/2021 CBC AND DIFFE RENTI AL absolute lymphs 1.22 K/uL 1.00-3 .10 Not Available [facility] (Outpatient) [address] [place], [address], 06/20/2021 06:59:28 06/20/20 21 06/20/2021 CBC AND DIFFE RENTI AL absolute monos 0.68 K/uL 0.20-0 .80 Not Available [facility] (Outpatient) [address] [place], [address], 06/20/2021 06:59:28 06/20/20 21 06/20/2021 CBC AND DIFFE RENTI AL absolute eos 0.20 K/uL 0.00-0 .80 Not Available [facility] (Outpatient) [address] [place] [address], [address], 06/20/2021 06:59:28 06/20/20 21 06/20/2021 CBC AND DIFFE RENTI AL absolute basos 0.03 K/uL 0.00-0 .09 Not Available [facility] (Outpatient) [address] [place], [address], 06/20/2021 06:59:28 06/20/20 21 06/20/2021 CBC AND DIFFE RENTI AL granulocytes , immature 0.02 K/uL 0.00-0 .05 Not Available [facility] (Outpatient) [address] [place], [address], 06/20/2021 06:59:28 06/20/20 21 06/20/2021 CORTI GIBSON AM cortisol AM 6.8 ug/dL 6.2-19 .4 Not Available [facility]) [address] [place] [address], [address], 06/20/2021 11:12:17 06/20/20 21 06/20/2021 FREE T4 free T4 0.7 NG/dL 0.9-1. 7 low Not Available [facility] (Out[facility]) [address] [place] [address], [address], 06/20/2021 11:12:18 06/20/20 21 06/20/2021 FREE T3 free T3 4.5 pg/mL 2.0-4. 4 high Not Available [facility] (Outpatient) [address] [place] [address], [address], 06/20/2021 11:12:19 06/20/20 21 06/20/2021 CORTI GIBSON PM cortisol pm 17.4 ug/dL 2.3-11 .9 high Not Available [facility] (Outpatient) [address] [place] [address], [address], 06/20/2021 13:26:12 06/20/20 21 06/23/2021 ACTH acth 8.0 pg/mL (NOTE ) ----- ----- ----- ----R EFERE NCE VALUE ----- ----- ----- ----- ----- - 7.2-6 3 (a.m. colle ction ) Not Available [facility] (Outpatient) [address] [place] [address], [address], 06/23/2021 10:27:27 06/21/20 21 06/21/2021 CORTI GIBSON AM cortisol AM 7.5 ug/dL 6.2-19 .4 Not Available [facility] (Outpatient) [address] [place] [address], [address], 06/21/2021 07:10:57 06/21/20 21 06/21/2021 FREE T4 free T4 0.6 NG/dL 0.9-1. 7 low Not Available [facility] (Outpatient) [address] [place], [address], 06/21/2021 07:10:59 06/21/20 21 06/21/2021 FREE T3 free T3 2.5 pg/mL 2.0-4. 4 Not Available [facility] (Outpatient) [address] [place], [address], 06/21/2021 07:11:00 08/15/19 16 01/23/2013 imagi ng/madonna mcadams tic resul t No observ ation record ed. BARCODE Not Available 2015 11:47:25 Result Notes None recorded. Problems Name Problem SNOMED Code Status Onset Date Resolution Date Notes Provider Name and Address Organization Details Recorded Time Hypothyroidism 75482850 Active Jeremy Hood MD [address] [place] [address] [place], [address], [facility] 6 09:49:36 Anxiety 06143792 Active Coco [place] NP [address] [place] [address] [place], [address], [facility] 5 15:05:04 Disorder of pituitary gland 388327543 Tamiko [place] NP [address] [place], [place] [address], [address], [facility] 6 10:04:30 Headache 97512933 Tamiko [place] NP [address] [place] [address] [place], [address], [facility] 6 08:34:47 Fatigue 16796600 Active Jeremy Hood MD [address] [place] [address] [place], [address], [facility] 6 09:09:52 Vomiting 807628610 Active Jeremy Hood MD [address] [place] [address] [place], [address], [facility] 6 09:09:52 Photophobia 341000595 Active Jeremy Hood MD [address] [place], [place] [address] [place], [address], [facility] 6 09:09:52 Non-toxic multinodular goiter 49794659 Active Jeremy Hodo MD [address] [place], [place] [address] [place], [address], [facility] 6 09:09:52 Generalized anxiety disorder 18658768 Active Coco [place] NP [address] [place], [place] [address] [place], [address], [facility] 6 10:04:30 Celiac disease 532175663 Active 2015 Coco [place] NP [address] [place], [place] [address] [place], [address], [facility] 6 09:45:08 Problem Notes None recorded. Procedures Surgical History Date Name Laterality Status Provider Name and Address Organization Details Recorded Time 6 Appendectomy completed Coco [place] NP [address] [place] [address], [id number], [facility] 06/12/2015 14:39:09 Imaging Results Imaging Date Name [...] Not Available Not Available No t Available [facility] Thyroid 15 mg tablet 45mg (30mg and [...] Not Available Not Available No t Available [facility] Thyroid 30 mg tablet 45MG (30MG AND [...] Details Last Updated DateTime 06/12/2015 60 /min 65072.594 46 g 120 mm[Hg] 82 mm[Hg] Perlita Duque LPN [facility] 06/12/2015 14:13:54 Date Recorded Body height Body weight Body mass index (BMI) Heart rate Systolic blood pressure Diastolic blood pressure Provider Name and Address Organization Details Last Updated DateTime 6 177.8 cm 05845.3 44906 g 22.5 kg/m2 60 /min 116 mm[Hg] 84 mm[Hg] Nemo Cadet RN BSN [address] [place] [address], [phone] [place] [address] 6 08:25:36 Date Recorded Body height Body mass index (BMI) Body weight Heart rate Systolic blood pressure Diastolic blood pressure Provider Name and Address Organization Details Last Updated DateTime 6 177.8 cm 23.1 kg/m2 23886.6 21037 g 84 /min 112 mm[Hg] 84 mm[Hg] Charlette Sidhu LPN [facility] 6 09:38:21 Date Recorded Body height Body weight Heart rate Body mass index (BMI) Systolic blood pressure Diastolic blood pressure Provider Name and Address Organization Details Last Updated DateTime 6 177.8 cm 31991.6 22794 g 100 /min 23.1 kg/m2 132 mm[Hg] 82 mm[Hg] Tennille Alfredo [facility] 6 16:14:34 Date Recorded Body height Body weight Body mass index (BMI) Heart rate Systolic blood pressure Diastolic blood pressure Provider Name and Address Organization Details Last Updated DateTime 6 177.8 cm 87757.8 7 g 26.5 kg/m2 80 /min 126 mm[Hg] 88 mm[Hg] Tennille Alfredo [facility] 6 08:54:15 Social History Question Answer Notes LastModified by Organizat ion Details LastModified Time Tobacco Smoking Status Never Smoker 12/05/15 [facility]2015 14:17:52 What Is Your Level Of Alcohol Consumption? Occasional Rare On Special Occasions 08/25/15 Information not available 06/12/2015 Which Illicit Or Recreational Drugs Have You Used? 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 With Others [email or web address] Information not available 06/12/2015 CSRP - Narcotics Yes Information not available 09/01/2015 CSRP Contract Signed And Discussed Yes 08/26/2015 [place] Information not available 09/01/2015 Patient Has Health Care Proxy Signed And In Chart No 06/12/15 Information not available 06/12/2015 Marital Status Jules Fabian Information not available 06/12/2015 How Many Children [...] cancer, colon cancer Medical History Condition Response GASTROINTESTINAL Y Hypothyroid Y Gynecological HistoryNo gynecological history recorded. Obstetrics History GPAL:G 0 P 0 0 0 0 Past Encounters Encounter ID Performer Location Encounter Start Date Encounter Closed Date Diagnosis/Indication Diagnosis SNOMED-CT Code Diagnosis ICD10 Code Diagnosis Note [id number] Coco [place] NP , [facility], OFFICE [address] [place] [address] 06/12/2015 12:52:38 06/12/2015 15:14:16 Hypothyroidism 59613273 E03.9 Stable, f/b Dr. Rivas. Anxiety 87624673 F41.9 Headache 81880592 R51 PRN for severe headaches r/t pituitary disorder. [id number] Britt Feldman [facility] [place], [facility] [address] [place] [address] 08/25/2015 08:08:53 08/26/2015 09:20:39 Headache 56220115 R51 Hypothyroidism 91135849 E03.9 -restart armour thyroid 45mg (30mg and 15mg tab) by mouth daily -labs now and 2mo -clinic 9 weeks Fatigue 50496602 R53.83 Vomiting 530316889 R11.1 0 Photophobia 518978477 H5 3.149 Non-toxic multinodular goiter 08933326 E04.2 [id number] Letitiasamira Burrows , [facility], OFFICE [address] [place] [address] 08/26/2015 09:25:17 08/26/2015 10:09:30 Disorder of pituitary gland 085397825 E23.7 G44.89 Headache 16106775 R51 PRN for severe headaches r/t pituitary disorder. Gareth thyroiditis 21 616720 E06.3 Stable. Generalize d anxiety disorder 39263619 F41.1 F41.0 [id number] [facility] [place], [facility], OFFICE [address] [place] [address] 12/05/2015 15:40:16 12/06/2015 08:15:44 Hypothyroidism 63229839 E03.9 Will f/u w/ endocrinol ogy soon. Allergic rhinitis 462536 04 J30.9 Abnormal u terine bleeding 9417666840 9100 N93.9 Improved since D&C, will f/u w/ [employer]EL[employer] in 2mo. Headache 85738847 R51 [id number] Coco [place] NP , [facility], OFFICE [address] [place] [address] 04/16/2016 08:25:52 04/16/2016 10:18:47 Hypothyroidism 40163909 E03.9 Stabilizin g. Celiac disease 066999026 K90.0 Stabilizin g again now that Rx don't contain gluten. Nondepende nt opioid abuse, continuous 670606125 F11.10 Arranging for treatment. Health Concerns Section Related Observation LastModified by Organization Detai ls LastModified Time None Recorded Concern Status LastModified by Organization Details LastModified Time None Recorded Advance Directives Directive None Recorded Payers Encounter Date Sequence Insurance Name Policy Number Policy [place] Covered Member ID [place] Member ID Guarantor Name 06/12/2015 1 [place] [id number] Jules Peralta [id number] Angélica Peralta 08/25/2015 1 *SELF PAY* Radha Peralta 08/26/2015 1 *SELF PAY* Radha Peralta 12/05/2015 1 [place] [id number] Jules Peralta [id number] Angélica Peralta 04/16/2016 1 [place] [id number] Jules Peralta [id number] Angélica Peralta Notes Date Note Type Note Provider Name and Address Organization Details Recorded Time 06/12/2015 text/html Pt is here to ge t established, former pt of Dr. Abner Rogers in [place]. She has a 3mo baby and is preparing to retake NCLEX. 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 Pt has been taking alprazolam 0.5mg 3-4x/wk for situational anxiety, wants to taper and D/C completely -- has 4 tabs remaining of last Rx from previous PCP. Tap Builder thinks pt may have hypophysisis -- swelling of pituitary resulting in severe headache; she takes oxycodone prn; needs refill now but hopes she won't need it going forward. MRI is planned for further evaluation. Coco [place], [employer] [address] [place] [address], [phone], [facility] 06/12/2015 15:07:37 08/25/2015 text/html HPI 37yo woman [...] bleeding between periods ? Jeremy Hood MD [address] [place], [address], [facility] 08/25/2015 09:09:56 08/26/2015 text/html Pt returns for f/u, states she read [facility] -- wants to get off benzodiazepine. She has scheduled an appointment with a psychiatrist (Dr. Nguyen) in [place] -- wants help w/ finishing taper as [...] end of August. Coco [place] NP [address] [place], [address], [facility] 08/26/2015 10:07:14 04/16/2016 text/html Pt returns for f/u. She'll be taking NCLEX again soon, awaiting notification of date. She states she hasn't been feeling well, discussed w/ Dr. Hood -- he has titrated thyroid med dosages. She has also seen a specialist at [facility] very recently; was told the form of T4 she was taking has gluten in it. She's now taking Cytomel and Tirosint qd, still titrating dosages. She's starting to feel slightly better, will see him again in 6 weeks. She'll have scans of pituitary at [facility]. Also, pt has been trying to get [...] states that if she had come [place] [facility] [place] and w/ [facility] instead of private insurance she'd be Rx'd suboxone immediately, doesn't want to believe what I've already told her. She did agree to schedule appointment next but states she'll just quit cold turkey in the meantime. Of note, pt does want to be stable enough to take her nursing boards whenever they're scheduled. Coco [place], [facility] [address] [place] [address], [place], [address], [facility] 04/16/2016 22:28:03 OBGyn Episode No OBEpisode recorded.
[2024-09-11] MEDS: Lactated Ringers 1,000 ML 999 ML IV (07:30)
[2024-09-11] MEDS: Metoclopramide HCl 10 MG/2 ML VIAL IVPUSH (07:30)
[2024-09-11] MEDS: diphenhydrAMINE HCL 50 MG/ML VIAL IVPUSH (07:30)
[2024-09-11] MEDS: Ketorolac Tromethamine 15 MG/ML VIAL IVPUSH (07:30)
[2024-09-11] MEDS: Morphine Sulfate 4 MG/ML CARTRIDGE IVPUSH (07:31)
[2024-09-11 10:00] VITALS: BP 135/99; PULSE 74; RESP 16; TEMP 36.5; O2SAT 100
[2024-09-11 11:57] VITALS: BP 161/75; PULSE 75; RESP 18; TEMP 36.4
== END 2024-09-11 11:58 | disposition home or self-care (01) ==
PROVIDERS: Emergency Provider Emergency Medicine Emergency Medical Services
DX: R11.2 Nausea with vomiting, unspecified (principal); Z72.820 Sleep deprivation; R51.9 Headache, unspecified; F43.0 Acute stress reaction; F43.10 Post-traumatic stress disorder, unspecified; F39 Unspecified mood [affective] disorder; F31.9 Bipolar disorder, unspecified; Z79.899 Other long term (current) drug therapy
CPT/HCPCS: 36415; 71045; 80053; 85025; 96361; 96374; 96375; 99284; J1200; J1885; J2270; J2765; J7120

== ENCOUNTER → 2024-09-11 06:10 | Outpatient (BNV) | payer MEDICARE, MEDICAID, SELFPAY | PROVIDERS: Emergency Provider Emergency Medicine Emergency Medical Services; Visit Provider Radiology Diagnostic Radiology | DX: R06.02 Shortness of breath (principal) | CPT/HCPCS: 71045 ==

== ENCOUNTER 2024-10-18 15:14 | Inpatient (IN) | payer MEDICARE, MEDICAID, SELFPAY ==
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
[2024-10-18 15:37] VITALS: BP 138/90; BP 147/84; PULSE 100; PULSE 87; RESP 18; TEMP 36.6; O2SAT 98; O2SAT 99; BMI 19.8
[2024-10-18 16:29] LABS: Baso%MD 0.9 %; Eos%MD 3.3 %; Hematocrit 36.4 % (37.0-47.0); Hemoglobin 11.8 g/dl (12.0-16.0); IG%MD 0.3 %; Lymph%MD 25.8 %; Mean Corpuscular HGB Conc 32.4 g/dl (31.0-35.0); Mean Corpuscular Hemoglobin 25.8 pg (27.0-33.0); Mean Corpuscular Volume 79.5 fL (80.0-98.0); Mean Platelet Volume 8.7 fL (9.4-12.3); Mono%MD 5.9 %; Neut%MD 63.8 %; Platelet Count 512 X10*3/uL (160-400); Red Blood Count 4.58 X10*6/uL (4.20-5.50); Red Cell Distribution Width 17.2 % (11.0-16.0); White Blood Count 10.9 X10*3/uL (4.8-10.8)
[2024-10-18 16:36] LABS: Appearance Urine Cloudy; Color Urine Yellow; Glucose Urine UA Negative (Negative); Leukocyte Esterase Urine Moderate (2+) (Negative); Nitrite Urine Negative (Negative); Specific Gravity - Urine 1.025 (1.005-1.025); UMIC TRIGGER UACC YES; UPreg QC Valid YES; Urine Blood Negative (Negative); Urine Ketones Trace mg/dL (Negative); Urine Pregnancy NEGATIVE (NEGATIVE); Urine Protein 100 (2+) mg/dL (Neg-Trace)
[2024-10-18 16:38] LABS: Bacteria Urine 1+ (None Seen); Hyaline Casts Urine 0-2 /LPF (0-2); RBC Urine 0-2 /HPF (0-2); Squamous Epithelial Cell Urine >20 /HPF (0-2); UACC Culture Trigger YES; WBC Urine 21-50 /HPF (0-5)
--- NOTE | 2024-10-18 16:41 | PC.NURSE ---
labs and urine obtained
[2024-10-18 16:42] LABS: Ethanol < 10 mg/dL
[2024-10-18 16:45] LABS: Amphetamine Screen Urine POSITIVE (Not Detect); Barbiturates, Urine Not Detected (Not Detect); Benzodiazepines Screen Urine POSITIVE (Not Detect); Buprenorphine Scr Not Detected (Not Detect); Cannabinoid Screen Urine Not Detected (Not Detect); Cocaine Screen Urine Not Detected (Not Detect); Fentanyl, urine Not Detected (Not Detect); Methadone Screen, Urine Not Detected (Not Detect); Opiate Screen Urine Not Detected (Not Detect); Oxycodone Screen Urine Not Detected (Not Detect); Phencyclidine Screen Urine Not Detected (Not Detect)
[2024-10-18 17:15] LABS: Band Neutrophils Percent 0 % (3-5); Basophils Abs Manual 0.3 X10*3/uL (0.0-0.2); Basophils Percent Manual 3 % (0-2); Eosinophils Absolute Manual 0.2 X10*3/uL (0.0-0.4); Eosinophils Percent Manual 2 % (0-4); Lymphocytes Absolute Manual 2.5 X10*3/uL (1.2-4.9); Lymphocytes Percent Manual 23 % (20-40); Monocytes Absolute Manual 0.3 X10*3/uL (0.1-1.2); Monocytes Percent Manual 3 % (2-11); Neutrophils Absolute Manual 7.5 X10*3/uL (2.0-8.3); Neutrophils Percent Manual 69 % (45-73)
[2024-10-18 17:16] LABS: Platelet Estimate NORMAL (NORMAL); Platelet Morphology Comment NORMAL; RBC Morphology NORMAL
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
[2024-10-19 02:37] VITALS: BP 93/77; PULSE 81; RESP 16; TEMP 36.9; O2SAT 97
--- NOTE | 2024-10-19 02:39 | PC.NURSE ---
MD Otto made aware of BP. add on test ordered for CMP, lab states will attempt add on and notify RN if need to be redrawn.
[2024-10-19 03:03] LABS: Alanine Aminotransferase 45 U/L (0-31); Albumin Level 4.4 g/dL (3.5-5.0); Anion Gap 15 (12-20); Aspartate Amino Transferase 37 U/L (5-31); Bilirubin Total 0.5 mg/dL (0.0-1.0); Blood Urea Nitrogen 11 mg/dL (9-16); Calcium 9.2 mg/dL (8.4-10.2); Carbon Dioxide 21 mmol/L (22-29); Chloride 108 mmol/L (96-108); Creatinine Clr Calc Pharmacy 103.5; Estimated Glomerular Filt Rate > 60; Glucose Random 72 mg/dL (60-115); Potassium 3.6 mmol/L (3.3-5.1); Sodium 140 mmol/L (135-145); Total Protein 7.8 g/dL (6.5-8.0)
[2024-10-19 04:12] LABS: Alkaline Phosphatase 87 U/L (39-117)
--- NOTE | 2024-10-19 07:19 | PC.NURSE ---
ASSUMED CARE OF PT THIS AM, IN NAD. RESP EVEN NONLABOURED. SPEECH IS RAPID AND PRESSURED, THOUGHT PROCESS DISORGANIZED. ATTEMPTED TO COMPLETE MED REC, IT SEEMS SHE HAS NOT FILLED HER MEDS IN ABOUT A MONTH. SHE STATES SHE HAS BEEN GET[facility]. UNABLE TO OBTAIN MORE INFORMATION AT THIS TIME, SHE IS QUICKLY DISMISSIVE, MAKING PARANOID STATEMENTS ABOUT STAFF. WILL RE ATTEMPT AT A LATER TIME.
--- OUTSIDE RECORDS SUMMARY | 2024-10-19 09:01 | XMS_ITS | Data Portability ---
Author Organization [place] - [facility], [facility] Address [address] [place] [address] Assessment Encounter Date Assessment Date Assessment LastModified by Organization Details LastModified Time 05/23/2018 05/23/2018 routine OB ecoci Not available 15:50:14 05/31/2018 05/31/2018 routine OB ecoci Not available 01/2018 11:26:00 Plan of Treatment Reminders Order Date Submit Date Provider Last Modified By Organization Details Last Modified Time Details Appointments None recorded. Lab CT + NG DNA, PCR, unspecified specimen 2017 [facility], [address] [place], [address] 8 14:20:05 streptococc us group B DNA 2017 [facility], [address] [place], [address] 8 14:20:05 Referral None recorded. Procedures None recorded. Surgeries None recorded. Imaging non-stress test 2017 [facility] In-Office Order, Internal Use Only DO Not Attach Compendium DO Not Attach Compendium, Do Not Delete/merge, [id number] 8 06:38:30 Medication Orders None recorded. Patient TargetsNo targets recorded. Patient Instructions Encounter Date Encounter Id Patient Instructions Last Modified By Organization Details Last Modified Time 05/17/2018 [id number] elevated blood pressure: care instructions Not available [...] for growth. Not available 05/29/2018 14:40:28 05/31/2018 [id number] elevated blood pressure: care instructions Not available 06/06/2018 06:38:30 Reason for Referral None Reported. Results Created Date Observation Date Name Description Value Unit Range Abnormal Flag Note LastModifiedBy Organization Detail LastModifiedTime 05/17/2005/17/2018 non-s tress test EDC Not Available In-Office Order Internal Use Only DO Not Attach Compendium DO Not Attach Compendium, Do Not Delete/merge, [id number] 05/17/2018 13:47:03 05/17/20 18 05/17/2018 non-s tress test Weeks gestation by Ultras ound Not Available In-Office Order Internal Use Only DO Not Attach Compendium DO Not Attach Compendium, Do Not Delete/merge, [id number] 05/17/2018 13:47:03 05/17/20 18 05/17/2018 non-s tress test Heart Rate 14- Not Available In-Off ice Order Internal Use Only DO Not Attach Compendium DO Not Attach Compendium, Do Not Delete/merge, [id number] 05/17/2018 13:47:03 05/17/20 18 05/17/2018 non-s tress test FHR Baseline (bpm) 140 Not Available In-Off ice Order Internal Use Only DO Not Attach Compendium DO Not Attach Compendium, Do Not Delete/merge, [id number] 05/17/2018 13:47:03 05/17/20 18 05/17/2018 non-s tress test FHR Variability Modera te, 6-25 Not Available In-Office Order Internal Use Only DO Not Attach Compendium DO Not Attach Compendium, Do Not Delete/merge, [id number] 05/17/2018 13:47:03 05/17/20 05/17/2018 non-s tress test Acceleration s 140-18 0 Not Available In-Office Order Internal Use Only DO Not Attach Compendium DO Not Attach Compendium, Do Not Delete/merge, [id number] 05/17/2018 13:47:03 05/17/20 18 05/17/2018 non-s tress test Interpretati on REACTI VE Not Available In-Office Order Internal Use Only DO Not Attach Compendium DO Not Attach Compendium, Do Not Delete/merge, [id number] 05/17/2018 13:47:03 05/17/20 18 05/17/2018 non-s tress test Recommendati ons As clinic ally indica obie Not Available In-Office Order Internal Use Only DO Not Attach Compendium DO Not Attach Compendium, Do Not Delete/merge, [id number] 05/17/2018 13:47:03 05/23/20 18 05/24/2018 CT + NG DNA, PCR, unspe cifie d speci men source CVX Not Available [facility] [address] [place] [address], [id number] 05/25/2018 14:20:05 05/23/20 18 05/24/2018 CT + NG DNA, PCR, unspe cifie d speci men chlamydia by DNA Negati ve negati ve Not Available [facility] [address] [place] [address], [id number] 05/25/2018 14:20:05 05/23/20 18 05/24/2018 CT + NG DNA, PCR, unspe cifie d speci men GC by DNA Negati ve negati ve Not Available [facility] [address] [place] [address], [id number] 05/25/2018 14:20:05 05/23/20 18 05/25/2018 strep tococ cus group B DNA source V Not Available [facility] [address] [place] [address], [id number] 05/25/2018 14:20:05 05/23/20 18 05/25/2018 strep tococ [...] the anal sphin cter) . Not Available [facility] [address] [place], [id number] 05/25/2018 14:20:05 05/31/20 18 05/31/2018 non-s tress test EDC Not Available In-Office Order Internal Use Only DO Not Attach Compendium DO Not Attach Compendium, Do Not Delete/merge, [id number] 05/31/2018 13:11:23 05/31/20 18 05/31/2018 non-s tress test Weeks gestation by Ultras ound Not Available In-Office Order Internal Use Only DO Not Attach Compendium DO Not Attach Compendium, Do Not Delete/merge, [id number] 05/31/2018 13:11:23 05/31/20 18 05/31/2018 non-s tress test Heart Rate 120 Not Available In-Off ice Order Internal Use Only DO Not Attach Compendium DO Not Attach Compendium, Do Not Delete/merge, [id number] 05/31/2018 13:11:23 05/31/20 18 05/31/2018 non-s tress test FHR Baseline (bpm) 120 Not Available In-Off ice Order Internal Use Only DO Not Attach Compendium DO Not Attach Compendium, Do Not Delete/merge, [id number] 05/31/2018 13:11:23 05/31/20 18 05/31/2018 non-s tress test FHR Variability Modera te, 6-25 Not Available In-Office Order Internal Use Only DO Not Attach Compendium DO Not Attach Compendium, Do Not Delete/merge, [id number] 05/31/2018 13:11:23 05/31/20 18 05/31/2018 non-s tress test Acceleration s 120-14 0 Not Available In-Office Order Internal Use Only DO Not Attach Compendium DO Not Attach Compendium, Do Not Delete/merge, [id number] 05/31/2018 13:11:23 05/31/20 18 05/31/2018 non-s tress test Interpretati on REACTI VE Not Available In-Office Order Internal Use Only DO Not Attach Compendium DO Not Attach Compendium, Do Not Delete/merge, [id number] 05/31/2018 13:11:23 11/07/20 18 05/31/2018 non-s tress test Recommendati ons As clinic ally indica obie Not Available In-Office Order Internal Use Only DO Not Attach Compendium DO Not Attach Compendium, Do Not Delete/merge, [id number] 05/31/2018 13:11:23 05/23/20 18 US, obste tric, 2nd or 3rd trime ster No observ ation record ed. Not Available 07/2017 07:42:03 Result Notes None recorded. Problems Name Problem SNOMED Code Status Onset Date Resolution Date Notes Provider Name and Address Organization Details Recorded Time Pregnanc y 16191251 Completed 201706/06/2018 Davina Barron null, [facility] 8 10:47:26 Hyperten sive disorder 47459091 Active 2017 Ashley Jones MA null, [facility] 8 11:32:09 Lyme disease 25685698 Active Chronic Lyme Disease, Amoxcill in x 3 weeks earlier in pregnanc y, plasmaph aresis in [place] Davina Barron null, [facility] 8 10:47:23 Advanced maternal age 523392772 Active Davina Barron null, [facility] 8 10:47:23 Advanced maternal age 919031681 Completed Davina Barron null, [facility] 8 10:47:23 Lyme disease 49520423 Completed Chronic Lyme Disease, Amoxcill in x 3 weeks earlier in pregnanc y, plasmaph aresis in [place] Davina Barron null, [facility] 8 10:47:23 Pregnanc y-induce d hyperten gurpreet 55008508 Completed [place] Davina Barron null, [facility] 8 10:47:23 Problem Notes None recorded. Procedures Surgical History Date Name Laterality Status Provider Name and Address Organization Details Recorded Time 05/17/20 18 [id number] completed Ashley Jones MA [facility] 05/17/2018 13:52:49 Abdominoplasty completed Ashley Jones MA [place] - [facility] 05/17/2018 11:34:10 Imaging Results Imaging Date Name [...] Address Organization Details Last Updated DateTime 05/17/2018 67696.86048 g Not Available [facility] Record 05/29/2018 14:41:32 Date Recorded Body weight Systolic blood pressure Diastolic blood pressure Provider Name and Address Organization Details Last Updated DateTime 05/23/2018 56725.8816 3 g 120 mm[Hg] 74 mm[Hg] Not Available [facility] Record 05/23/2018 15:46:28 Date Recorded Body weight Systolic blood pressure Diastolic blood pressure Provider Name and Address Organization Details Last Updated DateTime 05/31/2018 52000.0663 7 g 130 mm[Hg] 90 mm[Hg] Not Available [facility] Record 05/31/2018 11:24:19 Social History Question Answer Notes LastModified by Organizat ion Details LastModified Time Tobacco Smoking Status Never Smoker Ashley Jones MA null, [place] [facility] 05/17/2018 11:33:49 What Was The Date Of Your Most Recent Tobacco Screening? 05/17/2018 Information n ot available 02/14/2019 Sex: Unknown Functional Status None recorded. Mental Status None recorded. Family History Nothing Reported. Medical History Condition Response Other N *No Diseases or Conditions N Breast Cancer N Blood clots N Benign breast disease N Colon cancer N Depression N Lung Disease N Defects or Inherited Disease N Anesthesia [...] SNOMED-CT Code Diagnosis ICD10 Code Diagnosis Note [id number] ANH CABALLERO MD [facility] [place] [address] 05/17/2018 11:24:05 05/17/2018 13:25:29 Lyme disease 02281790 A69.20 Hypertensive disorder 38 071178 I10 18026199 Z33.1 Advanced m aternal age 058723788 O09.523 Routine an tenatal care 275342362 Z34.83 [id number] ANH CABALLERO MD [facility] [place] [phone] 05/23/2018 15:21:54 05/23/2018 16:17:27 Routine care 109061394 Z34.83 Venereal d isease screening 350549685 Z11.3 [id number] ANH CABALLERO MD [facility] [place] [address] 05/31/2018 11:09:42 05/31/2018 13:18:30 Routine care 729112360 Z34.90 Hypertensive disorder 38 250707 I10 Gestation period, 37 weeks 30683972 Z3A.37 Health Concerns Section Related Observation LastModified [...] and decided to get alternative therapy in [place] which included plasmapheresis. Patient states that the [...] was negative for Lyme's. ANH CABALLERO MD [address] [place] [address], [address] Floor, [place], [address], [place] [facility] 05/29/2018 14:43:10 OBGyn Episode Ob Episode Information Episode Created Date Number of Fetuses Patient Bloodtype Patient rh Status Prepregnancy Weight lbs Domestic Partner Domestic Partner Phone Father Name Biofuels Engineering Manager Status 05/17/20 18 1 CLOSED Fetus Data First Name Last Name Admitted to NICU Weight (g) Sex Living Outcome Pediatric Complications Fetus ID Race Codes Race Delivery Type F [id number] Vaginal Delivery [place] Calculation Initial [place] Date [...] Domestic Partner Domestic Partner Phone Father Name Biofuels Engineering Manager Status 05/17/20 18 1 CLOSED Fetus Data First Name Last Name Admitted to NICU Weight (g) Sex Living Outcome Pediatric Complications Fetus ID Race Codes Race Delivery Type [phone] [phone] F [id number] Vaginal Delivery Problems Problem Notes Problem Name Start Date End Date Resolution Snomed Code Not e Advanced maternal age 901391948 Lyme disease 51771903 Chronic Lyme Disease, Amoxcillin x 3 weeks earlier in , plasmapharesis in [place] -induced hypertension 91283503 Aldomet [place] Calculation Initial [place] Date Initial [...] Gestation 0 ecoci 05/17/2018 06/23/20 18 0 Pre-[place] Flowsheet Flowsheet Date 05/17/2018 Eubanks Score Blood Edema Fundus Height Fundus Units Glucose Ketones Leukocytes Nitrite Labor Signs Protein Cervic Dilation Cervic Effacement Cervic Station trace 36 cm 1cm 50% -3 Type Weight in lbs Pre/Post Dialysis Refused 198.541779905513 BP Diastolic BP Location Tested BP Systolic [...] Type Weight in lbs Pre/Post Dialysis Refused 199.363098676220 BP Diastolic BP Location Tested BP Systolic BP Type 74 120 Fetus Heart Rate Present A Present Fetus Movement A Yes Comments PT UNABLE TO LEAVE URINE-pat ient complaining of [place] Avitia contractions. Discussed with MFM patient's case [...] Type Weight in lbs Pre/Post Dialysis Refused 201.842872066970 BP Diastolic BP Location Tested BP Systolic [...] At Estimated Date of Delivery true Thalassemia (Serbian, Saudi Arabian, Mediterranean, Or Background): MCV < 80 false Neural Tube Defect (Meningom yelocele, Spina Bifida, Or Anencephaly) false Congenital Heart Defect false Down Syndrome false Grzegorz-Sachs (eg, Anabaptism, Cajun, Indonesian-Preston) f alse Mahsa Disease false Sickle Cell Disease Or Trait () false Hemophilia Or Other Blood Disorders false Muscular Dystrophy false Cystic Fibrosis false Plymouth's Chorea false Mental Retardation/Autism false If Yes, [...] true Chronic Lyme Disease Familial Dysautonomia (Ashkenazi Anabaptism) false Spinal Muscular Atrophy false Parkinson Disease [...]
--- OUTSIDE RECORDS SUMMARY | 2024-10-19 09:02 | XMS_ITS | Continuity of Care Document ---
Author Organization [facility] Address [address] [place] [address] [place] [phone] Phone [phone] Care Team Providers Care Psychopaedic Nurse Name Role Phone KATHRINE LOPEZ M.D. Care Team Information Rec eiver Unavailable Social History Type Date Description Comments Sex Unknown
--- OUTSIDE RECORDS SUMMARY | 2024-10-19 09:02 | XMS_ITS | Data Portability ---
Author Organization [facility], , [facility] Address [address] [place] [address] Assessment Encounter Date Assessment Date Assessment LastModified [...] T3, free, serum or plasma 2015 016 [facility], [address] [place], [address], 6 08:39:02 T4, free, serum - Adelso Rivas MD 2015 016 [facility], [address] [place] [address], [address], 6 11:14:48 TSH, serum or plasma - Adelso Rivas MD [address] [facility], [address] [place] [address], [address], 6 09:40:56 prolactin, serum 2015 016 [facility], [address] [place] [address], [address], 6 09:41:24 T3, free, serum or plasma 2015 016 [facility], [address] [place] [address], [address], 6 06:02:21 T4, free, serum - Adelso Rivas MD 2015 016 [facility], [address] [place] [address], [address], 6 17:02:00 TSH, serum or plasma - Adelso Rivas MD [address], [address] [place] [address], [address], 6 09:40:56 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 Thanks. 2015 Scot Ashly Hernandez MD, [address] [place] [address], [address], 6 04:01:49 neurologist referral - 39yo female w/ apparent hypophysiti s (formerly followed by Adelso Rivas MD) and family hx migraine has intermitten t very severe headaches, needs further evaluation and treatment. Thanks. 2015 016 [email or web address] Not available 08:30:14 Procedures None recorded. Surgeries None recorded. Imaging None recorded. Medication Orders fluticasone propionate 50 mcg/actuati on nasal spray,suspe nsion 2015 016 [facility], [address] [place] [address], [address], 6 04:01:47 oxycodone 5 mg tablet 2015 016 DBA_PATCH [id number] [facility], [address] [place] [address], [address], 6 04:01:44 oxycodone 5 mg tablet 2015 016 [email or web address] [facility], [address] [place] [address], [address], 6 08:51:05 [place] Thyroid 15 mg tablet 2015 016 [email or web address] [facility], [address] [place] [address], [address], 6 08:50:26 [place] Thyroid 30 mg tablet 2015 016 [email or web address] [facility], [address] [place] [address], [address], 6 08:50:30 oxycodone 5 mg tablet 2014 015 [email or web address] [facility], [address] [place] [address], [address], 6 08:51:05 alprazolam 1 mg tablet 2014 015 [email or web address] [facility], [address] [place] [address], [address], 6 16:12:27 Patient TargetsNo targets recorded. Patient Instructions Encounter Date Encounter Id Patient Instructions Last Modified By Organization Details Last Modified Time 06/12/2015 [id number] Follow up as needed. [email or web address] Not available 06/12/2015 15:05:05 08/25/2015 [id number] -trial of restarting armour thyroid extract 45mg (30mg and 15mg tab) by mouth daily -please consider more regular sleep if possible, involve with feedings, have more time for you to recreate and exercise -labs now and 2mo -clinic 9 weeks [email or web address] Not available 08/25/2015 09:07:33 08/26/2015 [id number] Follow up as needed. Not available 08/26/2015 10:04:30 12/05/2015 [id number] Follow up with specialists as planned. Try the Flonase for now. Discussed indications for new prescription(s), risks and benefits of medication(s), common side effects and how to manage them, and reasons to notify prescriber of adverse effects or discontinuation. Not available 12/05/2015 21:50:06 Checked EPOXY FABRICATION SUPERVISOR -- appropriate. Not available 12/05/2015 16:51:54 04/16/2016 [id number] Please follow up with Fiona Ramirez NP, next week as discussed. Not available 04/16/2016 22:27:42 Reason for Referral Neurologist Referral for Dis order of pituitary gland 39yo female w/ apparent hypophysitis (formerly followed by Adelso Rivas MD) and family hx migraine has intermittent very severe headaches, needs further evaluation and treatment. Thanks. Referring Physician: Coco Livingston, Family Medicine, Encounter Date: 08/26/2015 Reject Opener And Filler & Hospitalist Physician Ref erral for Allergic rhinitis 39yo female w/ frequent headaches and hx allergies (used to receive injections) needs further evaluation and treatment. Thanks. Referring Physician: Coco Livingston [facility], Encounter Date: 12/05/2015 Results Created Date Observation Date Name Description Value Unit Range Abnormal Flag Note LastModifiedBy Organization Detail LastModifiedTime 09/29/19 16 09/30/2015 T3, free, serum or plasm a T3, free 4.1 pg/mL 2.3-4. 2 normal Not Available [facility] [place] [facility] [address] [place], [place], [address], 09/30/2015 08:39:01 09/29/19 16 09/30/2015 T4, free, serum free T4 1.15 NG/dL 0.75-1 .54 Not Available [address], [address], 09/30/2015 11:14:48 09/29/19 16 09/30/2015 TSH, serum or plasm a TSH <0.01 uIU/m L 0.50-6 .00 low < The Ameri can Colle ge of Endoc rinol ogy and Ameri can Thyro id Assoc iatio n recom mend goal TSH value s betwe en 0.4-4 .0 mIU/m L. Not Available [address], [address], 09/30/2015 17:56:57 09/29/19 16 10/02/2015 prola ctin, serum prolactin 18.5 NG/mL Male: 3.3 - 20.8 ng/mL Femal e: Preme nopau alexi: 2.1 - 47.6 ng/mL Postm enopa usal: 0 - 41.1 ng/mL Not Available [address], [address], 10/02/2015 09:41:24 11/11/19 16 11/11/2015 T4, free, serum free T4 0.43 NG/dL 0.75-1 .54 low Not Available [address], [address], 11/11/2015 17:02:00 11/11/19 16 11/12/2015 T3, free, serum or plasm a T3, free 2.5 pg/mL 2.3-4. 2 normal Not Available [facility] [place] [facility] [address] [place], [place], [address], 11/12/2015 06:02:21 11/11/19 16 11/12/2015 TSH, serum or plasm a TSH 7.99 uIU/m L 0.50-6 .00 high The [place] Colle ge of Endoc rinol ogy and Luis can Thyro id Assoc iatio n recom mend goal TSH value s betwe en 0.4-4 .0 mIU/m L. Not Available [address], [address], 11/12/2015 09:38:18 12/05/19 16 12/08/2015 drug scree n, urine amphetamine NEG. negati ve Not Available [address], [address], 12/08/2015 14:31:33 12/05/19 16 12/08/2015 drug scree n, urine barbiturates NEG. negati ve Not Available [address], [address], 12/08/2015 14:31:33 12/05/19 16 12/08/2015 drug scree n, urine benzodiazepi ne POS. negati ve GCMS= Sampl e sent to [facility] for confi rmati on by GC/MS . Not Available [address], [address], 12/08/2015 14:31:33 12/05/19 16 12/08/2015 drug scree n, urine cocaine NEG. negati ve Not Available [address], [address], 12/08/2015 14:31:33 12/05/19 16 12/08/2015 drug scree n, urine opiates POS. negati ve GCOP= Urine sampl e sent to [facility] for confi rmati on of opiat es by GC/MS . Not Available [address], [address], 12/08/2015 14:31:33 12/05/19 16 12/08/2015 drug scree [...] ng/ml Metha done: 300 ng/ml Not Available [address], [address], 12/08/2015 14:31:33 12/05/19 16 12/10/2015 opiat es, quant itati ve, urine codeine NEGATI VE NG/mL <50 Not Available [facility] [address], [address], 12/10/2015 17:29:57 12/05/19 16 12/10/2015 opiat es, quant itati ve, urine hydrocodone NEGATI VE NG/mL <50 Not Available [facility] [place] [facility] [address], [address], 12/10/2015 17:29:57 12/05/19 16 12/10/2015 opiat es, quant itati ve, urine hydromorphon e NEGATI VE NG/mL <50 Not Available [facility] [address], [address], 12/10/2015 17:29:57 12/05/19 16 12/10/2015 opiat es, quant itati ve, urine morphine 3770 NG/mL <50 high Not Available [facility] [address], [address], 12/10/2015 17:29:57 12/05/19 16 12/10/2015 opiat es, quant itati ve, urine norhydrocodo ne NEGATI VE NG/mL <50 Not Available [facility] [address] [place], [address], 12/10/2015 17:29:57 12/05/19 16 12/10/2015 opiat es, quant itati ve, urine noroxycodone NEGATI VE NG/mL <50 Not Available [facility] [place] [facility] [address], [place], [address], 12/10/2015 17:29:57 12/05/19 16 12/10/2015 opiat es, quant itati ve, urine oxycodone NEGATI VE NG/mL <50 Not Available [facility] [place] [facility] [address], [place], [address], 12/10/2015 17:29:57 12/05/19 16 12/10/2015 opiat es, quant itati ve, urine oxymorphone NEGATI VE NG/mL <50 Not Available [facility] [place] [facility] [address], [place], [address], 12/10/2015 17:29:57 12/05/19 16 12/10/2015 benzo diaze pine, quant itati ve, urine alphahydroxy alprazolam 102 NG/mL <25 high Not Available [facility] [place] [facility] [address], [place], [address], 12/10/2015 17:29:57 12/05/19 16 12/10/2015 benzo diaze pine, quant itati ve, urine alphahydroxy midazolam NEGATI VE NG/mL <50 Not Available [facility] [place] [facility] [address], [place], [address], 12/10/2015 17:29:57 12/05/19 16 12/10/2015 benzo diaze pine, quant itati ve, urine alphahydroxy triazolam NEGATI VE NG/mL <50 Not Available [facility] [place] [facility] [address], [place], [address], 12/10/2015 17:29:57 12/05/19 16 12/10/2015 benzo diaze pine, quant itati ve, urine aminoclonaze alize NEGATI VE NG/mL <25 Not Available [facility] [place] [facility] [address], [place], [address], 12/10/2015 17:29:57 12/05/19 16 12/10/2015 benzo diaze pine, quant itati ve, urine hydroxyethyl flurazepam NEGATI VE NG/mL <50 Not Available [facility] [place] [facility] [address], [place], [address], 12/10/2015 17:29:57 12/05/19 16 12/10/2015 benzo diaze pine, quant itati ve, urine lorazepam NEGATI VE NG/mL <50 Not Available [facility] [place] [facility] [address], [place], [address], 12/10/2015 17:29:57 12/05/19 16 12/10/2015 benzo diaze pine, quant itati ve, urine nordiazepam NEGATI VE NG/mL <50 Not Available [facility] [place] [facility] [address], [place], [address], 12/10/2015 17:29:57 12/05/19 16 12/10/2015 benzo diaze pine, quant itati ve, urine oxazepam NEGATI VE NG/mL <50 Not Available [facility] [place] [facility] [address], [place], [address], 12/10/2015 17:29:57 12/05/19 16 12/10/2015 benzo diaze pine, quant itati ve, urine temazepam NEGATI VE NG/mL <50 Not Available [facility] [place] [facility] [address], [address], 12/10/2015 17:29:57 01/15/20 16 01/15/2016 TSH, serum or plasm a TSH 2.51 uIU/m L 0.50-6 .00 The Ameri can Colle ge of Endoc rinol ogy and Ameri can Thyro id Assoc iatio n recom mend goal TSH value s shorty en 0.4-4 .0 mIU/m L. Not Available [address], [address], 01/15/2016 12:38:59 01/15/20 16 01/16/2016 T3, free, serum or plasm a T3, free 2.6 pg/mL 2.3-4. 2 normal Not Available [facility] [address], [place], [address], 01/16/2016 02:53:09 01/15/20 16 01/16/2016 T4, free, serum free T4 0.53 NG/dL 0.75-1 .54 low Not Available [address], [address], 01/16/2016 09:31:52 06/18/20 21 06/18/2021 CPK (CREA CLAIRE KINAS E) creatine kinase 42 U/L 21-215 Not Available [facility] [address] [place] [address], [id number], 06/18/2021 14:15:02 06/18/20 21 06/19/2021 LYME SCREE N WITH REFLE X TO WESTE RN BLOT, BLOOD lyme Ab IgG NEGATI VE negati ve Not Available [facility] [address] [place], [address], 06/19/2021 10:50:16 06/18/20 21 06/19/2021 LYME SCREE N WITH REFLE X TO WESTE RN BLOT, BLOOD lyme Ab IgM NEGATI VE negati ve Not Available [facility] [address] [place], [address], 06/19/2021 10:50:16 06/18/20 21 06/22/2021 EHRLI LALI/ ANAPL ASMA PCR anaplasma phagocyto NEGATI VE negati ve Not Available [facility] [address] [place], [address], 06/22/2021 10:06:37 06/18/20 21 06/22/2021 EHRLI LALI/ ANAPL ASMA PCR ehrlichia chaffeens NEGATI VE negati ve Not Available [facility]) [address] [place] [address], [address], 06/22/2021 10:06:37 06/18/20 21 06/22/2021 EHRLI LALI/ ANAPL ASMA PCR ehrl ewingii/cani s NEGATI VE negati ve Not Available [facility]) [address] [place] [address], [address], 06/22/2021 10:06:37 06/18/20 21 06/22/2021 EHRLI LALI/ ANAPL ASMA PCR ehrl muris-like NEGATI VE negati ve Not Available [facility] ([facility]) [address] [place] [address], [id number], 06/22/2021 10:06:37 06/18/20 21 06/22/2021 BABES IA SPECI ES PCR B.microti PCR NEGATI VE negati ve Not Available [facility]) [address] [place], [address], 06/22/2021 21:45:34 06/18/20 21 06/22/2021 BABES IA SPECI ES PCR B.duncani PCR NEGATI VE negati ve Not Available [facility]) [address] [place] [address], [id number], 06/22/2021 21:45:34 06/18/20 21 06/22/2021 BABES IA SPECI ES PCR B.divergens/ MO-1 PCR NEGATI VE negati ve Not Available [facility] [address] [place], [address], 06/22/2021 21:45:34 06/18/20 21 06/18/2021 BLOOD CULTU RE, ROUTI NE special requests NONE Not Available [facility] [address] [place], [address], 06/23/2021 08:30:51 06/18/20 21 06/23/2021 BLOOD CULTU RE, ROUTI NE blood culture NO GROWTH 5 DAYS Not Available [facility] [address] [place], [address], 06/23/2021 08:30:51 06/18/20 21 06/18/2021 BLOOD CULTU RE, ROUTI NE special requests NONE Not Available [facility] [address] [place], [address], 06/23/2021 08:30:53 06/18/20 21 06/23/2021 BLOOD CULTU RE, ROUTI NE blood culture NO GROWTH 5 DAYS Not Available [facility] [address] [place], [address], 06/23/2021 08:30:53 06/19/20 21 06/19/2021 CBC AND DIFFE RENTI AL WBC 9.47 K/uL 4.00-1 1.00 Not Available [facility] [address] [place], [address], 06/19/2021 07:15:41 06/19/20 21 06/19/2021 CBC AND DIFFE RENTI AL RBC 3.58 M/uL 3.72-5 .30 low Not Available [facility] [address] [place], [address], 06/19/2021 07:15:41 06/19/20 21 06/19/2021 CBC AND DIFFE RENTI AL HGB 10.4 g/dL 10.6-1 5.5 low Cosby d and notif ied to Florina Luis at N3. Not Available [facility]) [address] [place] [address], [id number], 06/19/2021 07:15:41 06/19/20 21 06/19/2021 CBC AND DIFFE RENTI AL HCT 31.2 % 32.0-4 5.0 low Not Available [facility] [address] [place] [address], [address], 06/19/2021 07:15:41 06/19/20 21 06/19/2021 CBC AND DIFFE RENTI AL plt 271 K/uL 140-43 0 Not Available [facility]) [address] [place] [address], [address], 06/19/2021 07:15:41 06/19/20 21 06/19/2021 CBC AND DIFFE RENTI AL MCV 87.2 fL 78.0-9 7.0 Not Available [facility]) [address] [place] [address], [id number], 06/19/2021 07:15:41 06/19/20 21 06/19/2021 CBC AND DIFFE RENTI AL MCH 29.1 pg 25.0-3 3.0 Not Available [facility]) [address] [place] [address], [id number], 06/19/2021 07:15:41 06/19/20 21 06/19/2021 CBC AND DIFFE RENTI AL MCHC 33.3 g/dL 32.0-3 6.0 Not Available [facility]) [address] [place] [address], [id number], 06/19/2021 07:15:41 06/19/20 21 06/19/2021 CBC AND DIFFE RENTI AL RDW 13.3 % 11.0-1 6.0 Not Available [facility] [address] [place], [address], 06/19/2021 07:15:41 06/19/20 21 06/19/2021 CBC AND DIFFE RENTI AL MPV 9.8 fL 8.4-12 .8 Not Available [facility] [address] [place], [address], 06/19/2021 07:15:41 06/19/20 21 06/19/2021 CBC AND DIFFE RENTI AL NRBC 0.00 /100_ WBCs 0 Not Available [facility] [address] [place] [address], [id number], 06/19/2021 07:15:41 06/19/20 21 06/19/2021 CBC AND DIFFE RENTI AL absolute NRBC 0.00 K/uL 0 Not Available [facility] [address] [place], [address], 06/19/2021 07:15:41 06/19/20 21 06/19/2021 CBC AND DIFFE RENTI AL diff method AUTO Not Available [facility]) [address] [place] [address], [address], 06/19/2021 07:15:41 06/19/20 21 06/19/2021 CBC AND DIFFE RENTI AL neuts 79.9 % 43.0-7 5.0 high Not Available [facility]) [address] [place] [address], [address], 06/19/2021 07:15:41 06/19/20 21 06/19/2021 CBC AND DIFFE RENTI AL lymphs 10.9 % 18.2-4 7.4 low Not Available [facility]) [address] [place] [address], [address], 06/19/2021 07:15:41 06/19/20 21 06/19/2021 CBC AND DIFFE RENTI AL monos 7.4 % 4.00-1 1.00 Not Available [facility]) [address] [place] [address], [address], 06/19/2021 07:15:41 06/19/20 21 06/19/2021 CBC AND DIFFE RENTI AL eos 1.3 % 0.0-8. 0 Not Available [facility]) [address] [place] [address], [address], 06/19/2021 07:15:41 06/19/20 21 06/19/2021 CBC AND DIFFE RENTI AL basos 0.2 % 0.0-2. 0 Not Available [facility]) [address] [place] [address], [id number], 06/19/2021 07:15:41 06/19/20 21 06/19/2021 CBC AND DIFFE RENTI AL granulocytes , immature (%) 0.3 % 0.0-0. 9 Not Available [facility] [address] [place] [address], [address], 06/19/2021 07:15:41 06/19/20 21 06/19/2021 CBC AND DIFFE RENTI AL absolute neuts 7.57 K/uL 1.80-7 .70 Not Available [facility]) [address] [place] [address], [id number], 06/19/2021 07:15:41 06/19/20 21 06/19/2021 CBC AND DIFFE RENTI AL absolute lymphs 1.03 K/uL 1.00-3 .10 Not Available [facility] [address] [place] [address], [address], 06/19/2021 07:15:41 06/19/20 21 06/19/2021 CBC AND DIFFE RENTI AL absolute monos 0.70 K/uL 0.20-0 .80 Not Available [facility] [address] [place], [address], 06/19/2021 07:15:41 06/19/20 21 06/19/2021 CBC AND DIFFE RENTI AL absolute eos 0.12 K/uL 0.00-0 .80 Not Available [facility] [address] [place], [address], 06/19/2021 07:15:41 06/19/20 21 06/19/2021 CBC AND DIFFE RENTI AL absolute basos 0.02 K/uL 0.00-0 .09 Not Available [facility]) [address] [place], [address], 06/19/2021 07:15:41 06/19/20 21 06/19/2021 CBC AND DIFFE RENTI AL granulocytes , immature 0.03 K/uL 0.00-0 .05 Not Available [facility] [address] [place], [address], 06/19/2021 07:15:41 06/19/20 21 06/19/2021 COMPR EHENS DHAVAL METAB OLIC PANEL sodium 137 mmol/ L 133-14 6 Not Available [facility]) [address] [place] [address], [address], 06/19/2021 07:24:47 06/19/20 21 06/19/2021 COMPR EHENS DHAVAL METAB OLIC PANEL potassium 3.7 mmol/ L 3.3-5. 1 Not Available [facility] [address] [place] [address], [address], 06/19/2021 07:24:47 06/19/20 21 06/19/2021 COMPR EHENS DHAVAL METAB OLIC PANEL chloride 103 mmol/ L 96-108 Not Available [facility] [address] [place], [address], 06/19/2021 07:24:47 06/19/20 21 06/19/2021 COMPR EHENS DHAVAL METAB OLIC PANEL CO2 22 mmol/ L 21-35 Not Available [facility] [address] [place], [address], 06/19/2021 07:24:47 06/19/20 21 06/19/2021 COMPR EHENS DHAVAL METAB OLIC PANEL BUN 8 mg/dL 6-19 Not Available [facility] [address] [place], [address], 06/19/2021 07:24:47 06/19/20 21 06/19/2021 COMPR EHENS DHAVAL METAB OLIC PANEL creatinine 0.30 mg/dL 0.5-1. 5 low Not Available [facility] [address] [place], [address], 06/19/2021 07:24:47 06/19/20 21 06/19/2021 COMPR EHENS DHAVAL METAB OLIC PANEL glucose 86 mg/dL 70-99 Not Available [facility] [address] [place], [address], 06/19/2021 07:24:47 06/19/20 21 06/19/2021 COMPR EHENS DHAVAL METAB OLIC PANEL albumin 3.4 g/dL 3.9-4. 8 low Not Available [facility] [address] [place], [address], 06/19/2021 07:24:47 06/19/20 21 06/19/2021 COMPR EHENS DHAVAL METAB OLIC PANEL total protein 5.8 g/dL 6.5-8. 0 low Not Available [facility] [address] [place], [address], 06/19/2021 07:24:47 06/19/20 21 06/19/2021 COMPR EHENS DHAVAL METAB OLIC PANEL calcium 8.5 mg/dL 8.4-10 .3 Not Available [facility] [address] [place] [address], [address], 06/19/2021 07:24:47 06/19/20 21 06/19/2021 COMPR EHENS DHAVAL METAB OLIC PANEL alkaline phosphatase 39 U/L 39-117 Not Available [facility] [address] [place] [address], [address], 06/19/2021 07:24:47 06/19/20 21 06/19/2021 COMPR EHENS DHAVAL METAB OLIC PANEL total bilirubin 0.3 mg/dL 0.0-1. 2 Not Available [facility] [address] [place] [address], [address], 06/19/2021 07:24:47 06/19/20 21 06/19/2021 COMPR EHENS DHAVAL METAB OLIC PANEL AST 13 U/L 0-37 Not Available [facility] [address] [place] [address], [address], 06/19/2021 07:24:47 06/19/20 21 06/19/2021 COMPR EHENS DHAVAL METAB OLIC PANEL ALT 16 U/L 0-40 Not Available [facility] [address] [place] [address], [address], 06/19/2021 07:24:47 06/19/20 21 06/19/2021 COMPR EHENS DHAVAL METAB OLIC PANEL globulin 2.4 g/dL 1-4.8 Not Available [facility] [address] [place] [address], [address], 06/19/2021 07:24:47 06/19/20 21 06/19/2021 COMPR EHENS DHAVAL METAB OLIC PANEL eGFR >120 mL/mi n/1.7 3m2 >59 Estim ated glome rular filtr ation rate calcu lated using the CKD-E PI equat ion. Not Available [facility] [address] [place], [address], 06/19/2021 07:24:47 06/19/20 21 06/19/2021 COMPR EHENS DHAVAL METAB OLIC PANEL anion gap 16 mmol/ L 10-20 Not Available [facility] [address] [place], [address], 06/19/2021 07:24:47 06/19/20 21 06/19/2021 MAGNE SIUM magnesium 1.6 mg/dL 1.6-2. 6 Not Available [facility] [address] [place], [address], 06/19/2021 07:24:48 06/19/20 21 06/19/2021 VITAM IN B12 vitamin B12 352 pg/mL 232-12 45 Not Available [facility] [address] [place], [address], 06/19/2021 07:40:38 06/19/20 21 06/19/2021 COVID HUMBERTO KELLEY RESPI RATOR Y VIRAL ORDER (PRO) test ordered RAPID COVID HAS BEEN ORDERE D Not Available [facility] [address] [place] [address], [id number], 06/19/2021 10:34:30 06/19/20 21 06/19/2021 COVID HUMBERTO KELLEY RESPI RATOR Y VIRAL ORDER (PRO) specimen source NASAL Not Available [facility] [address] [place] [address], [id number], 06/19/2021 10:34:30 06/19/20 21 06/19/2021 COVID HUMBERTO [...] rizat ion can be found at the [employer] links : For Healt hcare Provi ders: https ://[employer] .gov/ media /0024 23/do wnloa d For Patie nts: https ://[employer] .gov. media /7737 24/do wnloa d. Not Available [facility] [address] [place] [address], [address], 06/19/2021 10:34:30 06/19/20 21 06/21/2021 LACHELLE DAPHNE SEROL OGY B.henselae Ab, IgG <1:128 titer <1:128 Not Available [facility] [address] [place] [address], [id number], 06/21/2021 15:30:35 06/19/20 21 06/21/2021 LACHELLE DAPHNE SEROL OGY B.henselae Ab, IgM <1:20 titer <1:20 Not Available [facility] (Outpatient) [address] [place], [id number], 06/21/2021 15:30:35 06/19/20 21 06/21/2021 LACHELLE DAPHNE SEROL OGY B.renae Ab, IgG <1:128 titer <1:128 Not Available [facility] (Outpatient) [address] [place], [id number], 06/21/2021 15:30:35 06/19/20 21 06/21/2021 LACHELLE DAPHNE SEROL OGY B.renae Ab, IgM <1:20 titer <1:20 Not Available [facility] (Outpatient) [address] [place] [address], [id number], 06/21/2021 15:30:35 06/20/20 21 06/20/2021 CBC AND DIFFE RENTI AL WBC 7.66 K/uL 4.00-1 1.00 Not Available [facility] (Outpatient) [address] [place] [address], [id number], 06/20/2021 06:59:28 06/20/20 21 06/20/2021 CBC AND DIFFE RENTI AL RBC 3.54 M/uL 3.72-5 .30 low Not Available [facility] (Outpatient) [address] [place] [address], [id number], 06/20/2021 06:59:28 06/20/20 21 06/20/2021 CBC AND DIFFE RENTI AL HGB 10.5 g/dL 10.6-1 5.5 low Not Available [facility] ([facility]) [address] [place] [address], [id number], 06/20/2021 06:59:28 06/20/20 21 06/20/2021 CBC AND DIFFE RENTI AL HCT 30.9 % 32.0-4 5.0 low Not Available [facility] ([facility]) [address] [place] [address], [id number], 06/20/2021 06:59:28 06/20/20 21 06/20/2021 CBC AND DIFFE RENTI AL plt 302 K/uL 140-43 0 Not Available [facility] (Outpatient) [address] [place] [address], [id number], 06/20/2021 06:59:28 06/20/20 21 06/20/2021 CBC AND DIFFE RENTI AL MCV 87.3 fL 78.0-9 7.0 Not Available [facility] ([facility]) [address] [place] [address], [id number], 06/20/2021 06:59:28 06/20/20 21 06/20/2021 CBC AND DIFFE RENTI AL MCH 29.7 pg 25.0-3 3.0 Not Available [facility] (Out[facility]) [address] [place], [address], 06/20/2021 06:59:28 06/20/20 21 06/20/2021 CBC AND DIFFE RENTI AL MCHC 34.0 g/dL 32.0-3 6.0 Not Available [facility] ([facility]) [address] [place], [address], 06/20/2021 06:59:28 06/20/20 21 06/20/2021 CBC AND DIFFE RENTI AL RDW 13.2 % 11.0-1 6.0 Not Available [facility] ([facility]) [address] [place] [address], [id number], 06/20/2021 06:59:28 06/20/20 21 06/20/2021 CBC AND DIFFE RENTI AL MPV 10.2 fL 8.4-12 .8 Not Available [facility]) [address] [place] [address], [id number], 06/20/2021 06:59:28 06/20/20 21 06/20/2021 CBC AND DIFFE RENTI AL NRBC 0.00 /100_ WBCs 0 Not Available [facility] [address] [place], [address], 06/20/2021 06:59:28 06/20/20 21 06/20/2021 CBC AND DIFFE RENTI AL absolute NRBC 0.00 K/uL 0 Not Available [facility]) [address] [place] [address], [id number], 06/20/2021 06:59:28 06/20/20 21 06/20/2021 CBC AND DIFFE RENTI AL diff method AUTO Not Available [facility] [address] [place], [address], 06/20/2021 06:59:28 06/20/20 21 06/20/2021 CBC AND DIFFE RENTI AL neuts 71.9 % 43.0-7 5.0 Not Available [facility] ([facility]) [address] [place], [address], 06/20/2021 06:59:28 06/20/20 21 06/20/2021 CBC AND DIFFE RENTI AL lymphs 15.9 % 18.2-4 7.4 low Not Available [facility] [address] [place], [address], 06/20/2021 06:59:28 06/20/20 21 06/20/2021 CBC AND DIFFE RENTI AL monos 8.9 % 4.00-1 1.00 Not Available [facility] [address] [place], [address], 06/20/2021 06:59:28 06/20/20 21 06/20/2021 CBC AND DIFFE RENTI AL eos 2.6 % 0.0-8. 0 Not Available [facility] ([facility]) [address] [place], [address], 06/20/2021 06:59:28 06/20/20 21 06/20/2021 CBC AND DIFFE RENTI AL basos 0.4 % 0.0-2. 0 Not Available [facility] ([facility] [address] [place], [address], 06/20/2021 06:59:28 06/20/20 21 06/20/2021 CBC AND DIFFE RENTI AL granulocytes , immature (%) 0.3 % 0.0-0. 9 Not Available [facility] ([facility] [address] [place], [address], 06/20/2021 06:59:28 06/20/20 21 06/20/2021 CBC AND DIFFE RENTI AL absolute neuts 5.51 K/uL 1.80-7 .70 Not Available [facility] ([facility] [address] [place], [address], 06/20/2021 06:59:28 06/20/20 21 06/20/2021 CBC AND DIFFE RENTI AL absolute lymphs 1.22 K/uL 1.00-3 .10 Not Available [facility] ([facility] [address] [place], [address], 06/20/2021 06:59:28 06/20/20 21 06/20/2021 CBC AND DIFFE RENTI AL absolute monos 0.68 K/uL 0.20-0 .80 Not Available [facility] [address] [place], [address], 06/20/2021 06:59:28 06/20/20 21 06/20/2021 CBC AND DIFFE RENTI AL absolute eos 0.20 K/uL 0.00-0 .80 Not Available [facility]) [address] [place] [address], [id number], 06/20/2021 06:59:28 06/20/20 21 06/20/2021 CBC AND DIFFE RENTI AL absolute basos 0.03 K/uL 0.00-0 .09 Not Available [facility] [address] [place], [address], 06/20/2021 06:59:28 06/20/20 21 06/20/2021 CBC AND DIFFE RENTI AL granulocytes , immature 0.02 K/uL 0.00-0 .05 Not Available [facility] [address] [place], [address], 06/20/2021 06:59:28 06/20/20 21 06/20/2021 CORTI GIBSON AM cortisol AM 6.8 ug/dL 6.2-19 .4 Not Available [facility] [address] [place] [address], [id number], 06/20/2021 11:12:17 06/20/20 21 06/20/2021 FREE T4 free T4 0.7 NG/dL 0.9-1. 7 low Not Available [facility] [address] [place] [address], [address], 06/20/2021 11:12:18 06/20/20 21 06/20/2021 FREE T3 free T3 4.5 pg/mL 2.0-4. 4 high Not Available [facility] [address] [place] [address], [id number], 06/20/2021 11:12:19 06/20/20 21 06/20/2021 CORTI GIBSON PM cortisol pm 17.4 ug/dL 2.3-11 .9 high Not Available [facility] [address] [place] [address], [id number], 06/20/2021 13:26:12 06/20/20 21 06/23/2021 ACTH acth 8.0 pg/mL (NOTE ) ----- ----- ----- ----R EFERE NCE VALUE ----- ----- ----- ----- ----- - 7.2-6 3 (a.m. colle ction ) Not Available [facility] [address] [place] [address], [id number], 06/23/2021 10:27:27 06/21/20 21 06/21/2021 CORTI GIBSON AM cortisol AM 7.5 ug/dL 6.2-19 .4 Not Available [facility] [address] [place] [address], [id number], 06/21/2021 07:10:57 06/21/20 21 06/21/2021 FREE T4 free T4 0.6 NG/dL 0.9-1. 7 low Not Available [facility] [address] [place], [address], 06/21/2021 07:10:59 06/21/20 21 06/21/2021 FREE T3 free T3 2.5 pg/mL 2.0-4. 4 Not Available [facility] [address] [place], [address], 06/21/2021 07:11:00 08/15/19 16 01/23/2013 imagi ng/madonna mcadams tic resul t No observ ation record ed. BARCODE Not Available 2015 11:47:25 Result Notes None recorded. Problems Name Problem SNOMED Code Status Onset Date Resolution Date Notes Provider Name and Address Organization Details Recorded Time Hypothyroidism 11751465 Active Jeremy Hood MD [address] [place] [address] [place], [address], [facility] 6 09:49:36 Anxiety 75700962 Active Coco Livingston NP [address] [place] [address] [place], [address], [facility] 5 15:05:04 Disorder of pituitary gland 269467031 Tamiko Livingston NP [address] [place], [place] [address], [address], [facility] 6 10:04:30 Headache 12071900 Tamiko Livingston NP [address] [place] [address] [place], [address], [facility] 6 08:34:47 Fatigue 06256148 Active Jeremy Hood MD [address] [place] [address] [place], [address], [facility] 6 09:09:52 Vomiting 758556094 Active Jeremy Hood MD [address] [place] [address] [place], [address], [facility] 6 09:09:52 Photophobia 437099595 Active Jeremy Hood MD [address] [place], [place] [address] [place], [address], [facility] 6 09:09:52 Non-toxic multinodular goiter 46687724 Active Jeremy Hood MD [address] [place], [place] [address] [place], [address], [facility] 6 09:09:52 Generalized anxiety disorder 60062992 Active Coco Livingston NP [address] [place], [place] [address] [place], [address], [facility] 6 10:04:30 Celiac disease 155257649 Active 2015 Coco Livingston NP [address] [place], [place] [address] [place], [address], [facility] 6 09:45:08 Problem Notes None recorded. Procedures Surgical History Date Name Laterality Status Provider Name and Address Organization Details Recorded Time 6 Appendectomy completed Coco Livingston NP [address] [place] [address], [phone], [facility] 06/12/2015 14:39:09 Imaging Results Imaging Date Name [...] Not Available Not Available No t Available [place] Thyroid 15 mg tablet 45mg (30mg and [...] Not Available Not Available No t Available [place] Thyroid 30 mg tablet 45MG (30MG AND [...] Details Last Updated DateTime 06/12/2015 60 /min 96830.594 46 g 120 mm[Hg] 82 mm[Hg] Perlita Duque LPN [facility] 06/12/2015 14:13:54 Date Recorded Body height Body weight Body mass index (BMI) Heart rate Systolic blood pressure Diastolic blood pressure Provider Name and Address Organization Details Last Updated DateTime 6 177.8 cm 71581.3 47509 g 22.5 kg/m2 60 /min 116 mm[Hg] 84 mm[Hg] Nemo Cadet RN BSN [address] [place] [address], [phone] [place] [address] 6 08:25:36 Date Recorded Body height Body mass index (BMI) Body weight Heart rate Systolic blood pressure Diastolic blood pressure Provider Name and Address Organization Details Last Updated DateTime 6 177.8 cm 23.1 kg/m2 24332.6 70818 g 84 /min 112 mm[Hg] 84 mm[Hg] Charlette Sidhu LPN [facility] 6 09:38:21 Date Recorded Body height Body weight Heart rate Body mass index (BMI) Systolic blood pressure Diastolic blood pressure Provider Name and Address Organization Details Last Updated DateTime 6 177.8 cm 11807.6 86569 g 100 /min 23.1 kg/m2 132 mm[Hg] 82 mm[Hg] Tennille Alfredo [facility] 6 16:14:34 Date Recorded Body height Body weight Body mass index (BMI) Heart rate Systolic blood pressure Diastolic blood pressure Provider Name and Address Organization Details Last Updated DateTime 6 177.8 cm 04872.8 7 g 26.5 kg/m2 80 /min 126 mm[Hg] 88 mm[Hg] Tennille Alfredo [facility] 6 08:54:15 Social History Question Answer Notes LastModified by Organizat ion Details LastModified Time Tobacco Smoking Status Never Smoker 12/05/15 [facility]2015 14:17:52 What Is Your Level Of Alcohol Consumption? Occasional Rare On Special Occasions 08/25/15 [email or web address] Information not available 06/12/2015 Which Illicit Or Recreational Drugs Have You Used? 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 With Others [email or web address] Information not available 06/12/2015 CSRP - Narcotics [...] SNOMED-CT Code Diagnosis ICD10 Code Diagnosis Note [id number] Coco Livingston NP , [facility], OFFICE [address] [place] [address] 06/12/2015 12:52:38 06/12/2015 15:14:16 Hypothyroidism 02013437 E03.9 Stable, f/b Dr. Rivas. Anxiety 49739260 F41.9 Headache 05726118 R51 PRN for severe headaches r/t pituitary disorder. [id number] Britt Feldman [facility] [place], [facility] [address] [place] [address] 08/25/2015 08:08:53 08/26/2015 09:20:39 Headache 69193661 R51 Hypothyroidism 25844150 E03.9 -restart armour thyroid 45mg (30mg and 15mg tab) by mouth daily -labs now and 2mo -clinic 9 weeks Fatigue 91581756 R53.83 Vomiting 493895852 R11.1 0 Photophobia 258622634 H5 3.149 Non-toxic multinodular goiter 96558761 E04.2 [id number] Letitiasamira Burrows , [facility], [address] [place] [address] 08/26/2015 09:25:17 08/26/2015 10:09:30 Disorder of pituitary gland 220064779 E23.7 G44.89 Headache 66573812 R51 PRN for severe headaches r/t pituitary disorder. Gareth thyroiditis 21 651441 E06.3 Stable. Generalize d anxiety disorder 73164449 F41.1 F41.0 [id number] SINAI Livingston, [facility], [address] [place] [address] 12/05/2015 15:40:16 12/06/2015 08:15:44 Hypothyroidism 66205549 E03.9 Will f/u w/ endocrinol ogy soon. Allergic rhinitis 319304 04 J30.9 Abnormal u terine bleeding 1069220147 9100 N93.9 Improved since D&C, will f/u w/ ADMINISTRATIVE SUPPORT TECHNICIAN in 2mo. Headache 04921651 R51 [id number] Coco Livingston NP , [facility], [address] [place] [address] 04/16/2016 08:25:52 04/16/2016 10:18:47 Hypothyroidism 06571824 E03.9 Stabilizin g. Celiac disease 506290773 K90.0 Stabilizin g again now that Rx don't contain gluten. Nondepende nt opioid abuse, continuous 736894222 F11.10 Arranging for treatment. Health Concerns Section Related Observation LastModified by Organization Detai ls LastModified Time None Recorded Concern Status LastModified by Organization Details LastModified Time None Recorded Advance Directives Directive None Recorded Payers Encounter Date Sequence Insurance Name Policy Number Policy [place] Covered Member ID [place] Member ID Guarantor Name 06/12/2015 1 [place] [id number] Jules Peralta [id number] Angélica Peralta 08/25/2015 1 *SELF PAY* Radha Peralta 08/26/2015 1 *SELF PAY* Radha Peralta 12/05/2015 1 [place] [id number] Jules Peralta [id number] Angélica Peralta 04/16/2016 1 [place] [id number] Jules Peralta [id number] Angélica Peralta Notes Date Note Type Note Provider Name and Address Organization Details Recorded Time 06/12/2015 text/html Pt is here to ge t established, former pt of Dr. Abner Rogers in [place]. She has a 3mo baby and is preparing to retake NCLEX. 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 Pt has been taking alprazolam 0.5mg 3-4x/wk for situational anxiety, wants to taper and D/C completely -- has 4 tabs remaining of last Rx from previous PCP. Senior Product Consultant thinks pt may have hypophysisis -- swelling of pituitary resulting in severe headache; she takes oxycodone prn; needs refill now but hopes she won't need it going forward. MRI is planned for further evaluation. Coco Livingston, [employer] [address] [place] [address], [phone], [facility] 06/12/2015 15:07:37 08/25/2015 text/html HPI 37yo woman [...] between periods ? Jeremy Hood MD [address] [place], [address], [facility] 08/25/2015 09:09:56 08/26/2015 text/html Pt returns for f/u, states she read [facility] -- wants to get off benzodiazepine. She has scheduled an appointment with a psychiatrist (Dr. Nguyen) in [place] -- wants help w/ finishing taper as [...] end of August. Coco Livingston NP [address] [place], [address], [facility] 08/26/2015 10:07:14 04/16/2016 text/html Pt returns for f/u. She'll be taking NCLEX again soon, awaiting notification of date. She states she hasn't been feeling well, discussed w/ Dr. Hood -- he has titrated thyroid med dosages. She has also seen a specialist at [facility] very recently; was told the form of T4 she was taking has gluten in it. She's now taking Cytomel and Tirosint qd, still titrating dosages. She's starting to feel slightly better, will see him again in 6 weeks. She'll have scans of pituitary at [facility]. Also, pt has been trying to get [...] states that if she had come to [facility] on heroin and w/ [facility] instead of private insurance she'd be Rx'd suboxone immediately, doesn't want to believe what I've already told her. She did agree to schedule appointment next but states she'll just quit cold turkey in the meantime. Of note, pt does want to be stable enough to take her nursing boards whenever they're scheduled. Coco Livingston, [facility] [address] [place] [address], [place], [address], [facility] 04/16/2016 22:28:03 OBGyn Episode No OBEpisode recorded.
[2024-10-19 11:27] VITALS: BP 99/57; PULSE 85; RESP 16; TEMP 36.7; O2SAT 98
--- NOTE | 2024-10-19 12:03 | ECG_ITS ---
Test Reason : R/O PROLONGED QT Blood Pressure : */* mmHG Vent. Rate : 79 BPM Atrial Rate : 79 BPM P-R Int : 142 ms QRS Dur : 82 ms QT Int : 410 ms P-R-T Axes : 53 36 51 degrees QTcB Int : 470 ms Normal sinus rhythm Nonspecific T wave abnormality Prolonged QT Abnormal ECG When compared with ECG of 23-Apr-2023 07:16, QT has lengthened Referred By: Generic ED Physician Electronically Signed By: DAPHNE TIDWELL MD
--- NOTE | 2024-10-19 12:05 | MHC.EDTECH ---
Patient refusing EKG at this time, stating maybe after lunch. RN Cecy nance.
--- NOTE | 2024-10-19 12:20 | PC.NURSE ---
RE-ATTEMPTING MED REC. PER [facility], PT NEVER PICKED UP MOST RECENT RXS. REVIEWED PRESCRIBING PROVIDER, IS A PROVIDER AT [facility] INPT [facility]. CALL PLACED TO THEM, WHO CONFIRM RECENT INPT STAY FROM 10/05/24- 10/16/24. MEDS RECONCILED WITH [facility].
[2024-10-19 15:19] VITALS: BP 159/95; PULSE 80; RESP 17; TEMP 36.9; O2SAT 98; BMI 29.1
[2024-10-19] MEDS: risperiDONE 0.5 MG TABLET PO ×2 (15:54→20:41)
[2024-10-19] MEDS: diazePAM 5 MG TABLET 10 MG PO ×2 (15:57→20:41)
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
[2024-10-19 20:36] VITALS: BP 117/65; PULSE 89; RESP 18; TEMP 36.8; O2SAT 96
[2024-10-19] MEDS: diphenhydrAMINE HCL 25 MG CAPSULE PO (20:41)
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
[2024-10-20 08:00] VITALS: BP 127/75; PULSE 88; RESP 16; TEMP 36.4; O2SAT 99
[2024-10-20 08:41] LABS: Estimated Average Glucose 117 mg/dL; Hemoglobin A1C 119.5184 umol/L; Hemoglobin A1c % 5.7 % (<6.0); Total Hemoglobin (HGBA1C) 3113.7304 umol/L
[2024-10-20 08:49] LABS: Cholesterol 170 mg/dL (<200); HDL Cholesterol 40 mg/dL (>40); LDL Cholesterol Calculated 103 mg/dL (<100); Triglycerides 135 mg/dL (<150)
[2024-10-20 09:10] LABS: Free T4 (Free Thyroxine) 0.76 ng/dL (0.71-1.85); Thyroid Stimulating Hormone 0.98 uIU/mL (0.32-4.0)
[2024-10-20 09:22] LABS: Folate 3.6 ng/mL (> or = 4.0); Vitamin B12 249 pg/mL (200-900)
[2024-10-20] MEDS: risperiDONE 0.5 MG TABLET PO (09:22)
[2024-10-20] MEDS: diphenhydrAMINE HCL 25 MG CAPSULE PO ×2 (11:53→17:25)
[2024-10-20] MEDS: diazePAM 5 MG TABLET 10 MG PO ×2 (11:53→17:26)
[2024-10-20 13:30] VITALS: BP 134/80; PULSE 105
[2024-10-20] MEDS: Propranolol HCL 20 MG TABLET PO ×3 (13:36→22:34)
[2024-10-20 17:28] VITALS: BP 131/88; PULSE 85
[2024-10-20 20:00] VITALS: BP 93/59; PULSE 69; RESP 16; TEMP 36.4; O2SAT 100
--- NOTE | 2024-10-20 20:32 | P.PNPSI_ITS ---
Subjective Subjective Date of Service: 10/20/24 Reason For Visit: SI Interim History: irritable, loud, unreliable reporting. demands MD provide evidence again today that she is in a manic state. history reviewed as per medical record. MD encouraged pt to take mood stabilizer and higher dose of risperidone. per staff, labile. slept 10 hours. in bed most of shift. wants phone to on-line shop. asking for make-up. took risperidone. Mental Status Exam Mental Status Exam Narrative: disheveled, own clothes. cooperative. some PMA of elevated speech with nursing staff and stalking angrily down the [place]. speech nml rate, incr amount. decr latency. thoughts linear but with paranoid delusions. affect constricted, hyper-intense, mod-labile. mood not assessed. no SI/HI/AVH expressed. Diagnostics Vital Signs (24Hr): Vital Signs - 24 hr 10/19/24 20:36 10/20/24 08:00 10/20/24 13:30 Temperature 98.2 F 97.5 F Pulse Rate 89 88 105 H Respiratory Rate 18 16 Blood Pressure 117/65 127/75 134/80 Pulse Oximetry 96 99 Oxygen Delivery Method Room Air Room Air 10/20/24 17:28 Temperature Pulse Rate 85 Respiratory Rate Blood Pressure 131/88 Pulse Oximetry Oxygen Delivery Method BMI result Body Mass Index 29.1 Labs 10/18/24 16:14 10/18/24 16:14 Labs: Laboratory Results - last 48 hr 10/18/24 10/20/24 16:14 08:03 Sodium 140 Potassium 3.6 Chloride 108 Carbon Dioxide 21 L Anion Gap 15 BUN 11 Creatinine 0.69 Estim Creat Clear Calc 103.5 Estimated GFR > 60 Random Glucose 72 Estimat Average Glucose 117 Hemoglobin A1c % 5.7 Calcium 9.2 Total Bilirubin 0.5 AST 37 H ALT 45 H Alkaline Phosphatase 87 Total Protein 7.8 Albumin 4.4 Triglycerides 135 Cholesterol 170 LDL Cholesterol, Calc 103 H HDL Cholesterol 40 L Vitamin B12 249 Folate 3.6 L TSH 0.98 Free T4 0.76 Medications Medications Current Medications Acetaminophen (Acetaminophen 325 Mg Tablet) 650 mg PO Q6H PRN PRN Reason: Headache/Pain, Scale 1-10 Al Hydroxide/Mg Hydroxide (Magnesium Hydrox/Alum Hydrox 30 Ml Oral.Susp) 30 ml PO Q6H PRN PRN Reason: Heartburn/Nausea Diazepam (Diazepam 5 Mg Tablet) 10 mg PO BID PRN PRN Reason: severe anxiety Last Admin: 10/20/24 17:26 Dose: 10 mg Diphenhydramine HCl (Diphenhydramine Hcl 25 Mg Capsule) 25 mg PO BID PRN PRN Reason: erythema Last Admin: 10/20/24 17:25 Dose: 25 mg Divalproex Sodium (Divalproex Sodium Er 500 Mg Tab.Er.24h) 1,500 mg PO BEDTIME [facility]LIE Hydroxyzine HCl (Hydroxyzine Hcl 25 Mg Tablet) 25 mg PO Q6H PRN PRN Reason: mild anxiety Magnesium Hydroxide (Milk Of Magnesia 30 Ml Oral.Susp) 30 ml PO DAILY PRN PRN Reason: Constipation Nicotine Polacrilex (Nicotine Polacrilex 2 Mg Gum) 4 mg BUCCAL Q2H PRN PRN Reason: Nicotine Cravings Propranolol HCl (Propranolol Hcl 20 Mg Tablet) 20 mg PO QID [facility]LIE; Protocol Last Admin: 10/20/24 17:28 Dose: 20 mg Risperidone (Risperidone 1 Mg Tablet) 1 mg PO Q4H PRN PRN Reason: agitation Risperidone (Risperidone 0.5 Mg Tablet) 0.5 mg PO DAILY [facility] Risperidone (Risperidone 2 Mg Tablet) 2 mg PO BEDTIME [facility] Allergies Allergies Allergy/AdvReac Type Severity Reaction Status Date / Time gluten AdvReac Gastrointestinal Verified 10/18/24 15:40 Upset lithium AdvReac Unknown Verified 10/20/24 12:06 wheat AdvReac Gastrointestinal Verified 10/18/24 15:40 Upset Assessment & Plan Assessment & Plan (1) Bipolar 1 disorder, manic, moderate: Status: Acute Code(s): F31.12 - Bipolar disorder, current episode manic without psychotic features, moderate Plan 10/19: hold stimulants and SNRI. continue valium PRN and risperidone. increase risperidone as pt allows, T/C mood stabilizer. 10/20: repeatedly asking for stimulants, repeatedly denied. asserting staff home therapy rn lying to MD about things she said to them. refusing mood stabilizer. RXed VPA and increased risperidone. decreased valium PRNs. bryce unimproved. low folate, add supplement. Reason for continued inpatient stay Substantial Risk for: harm to self, harm to others and inability to function Time Spent With Patient Time: Total time managing care of this patient today __25__ minutes.
[2024-10-21 07:39] VITALS: BP 148/76; PULSE 89; RESP 16; TEMP 36.5; O2SAT 98
[2024-10-21] MEDS: risperiDONE 0.5 MG TABLET PO (08:30)
[2024-10-21] MEDS: Propranolol HCL 20 MG TABLET PO ×4 (08:30→20:11)
[2024-10-21] MEDS: diazePAM 5 MG TABLET 10 MG PO ×2 (08:44→11:29)
[2024-10-21] MEDS: hydrOXYzine HCL 25 MG TABLET PO ×2 (11:29→17:40)
[2024-10-21] MEDS: diphenhydrAMINE HCL 25 MG CAPSULE PO ×2 (11:29→17:40)
[2024-10-21 12:34] VITALS: BP 144/100; PULSE 79
[2024-10-21 16:42] VITALS: BP 125/79; PULSE 84
[2024-10-21 20:00] VITALS: BP 103/74; PULSE 78; RESP 16; TEMP 36.4; O2SAT 97
[2024-10-21 20:11] VITALS: BP 103/74; PULSE 78
--- NOTE | 2024-10-21 20:29 | P.PNPSI_ITS ---
Subjective Subjective Date of Service: 10/21/24 Reason For Visit: SI Interim History: states higher doses of risperidone than 0.5 mg cause her blurry vision and difficulty concentrating. declines to take VPA. asking about discharge and stimulants. per staff, angry, accusatory, demanding, dismissive. not attending groups. in bed eves. talking with roommate. refused b12, folate supplements as well as 2 mg risperidone and VPA last night. taking only valium PRNs and risperidone 0.5 mg doses. Mental Status Exam Mental Status Exam Narrative: adequately groomed, own clothes. cooperative. no PMA/PMR noted. speech nml rate, incr amount. decr latency. thoughts linear, no paranoid delusions expressed. affect constricted, normo-intense, non-labile. mood not assessed. no SI/HI/AVH expressed. Diagnostics Vital Signs (24Hr): Vital Signs - 24 hr 10/21/24 07:39 10/21/24 12:34 10/21/24 16:42 Temperature 97.7 F Pulse Rate 89 79 84 Respiratory Rate 16 Blood Pressure 148/76 H 144/100 H 125/79 Pulse Oximetry 98 Oxygen Delivery Method Room Air 10/21/24 20:11 Temperature Pulse Rate 78 Respiratory Rate Blood Pressure 103/74 Pulse Oximetry Oxygen Delivery Method BMI result Body Mass Index 29.1 Labs 10/18/24 16:14 10/18/24 16:14 Labs: Laboratory Results - last 48 hr 10/20/24 08:03 Estimat Average Glucose 117 Hemoglobin A1c % 5.7 Triglycerides 135 Cholesterol 170 LDL Cholesterol, Calc 103 H HDL Cholesterol 40 L Vitamin B12 249 Folate 3.6 L TSH 0.98 Free T4 0.76 Medications Medications Current Medications Acetaminophen (Acetaminophen 325 Mg Tablet) 650 mg PO Q6H PRN PRN Reason: Headache/Pain, Scale 1-10 Al Hydroxide/Mg Hydroxide (Magnesium Hydrox/Alum Hydrox 30 Ml Oral.Susp) 30 ml PO Q6H PRN PRN Reason: Heartburn/Nausea Cyanocobalamin (Cyanocobalamin (Vitamin B-12) 100 Mcg Tablet) 100 mcg PO DAILY [facility]LIE Last Admin: 10/21/24 08:32 Dose: Not Given Diazepam (Diazepam 5 Mg Tablet) 10 mg PO BID PRN PRN Reason: severe anxiety Last Admin: 10/21/24 11:29 Dose: 10 mg Diphenhydramine HCl (Diphenhydramine Hcl 25 Mg Capsule) 25 mg PO BID PRN PRN Reason: erythema Last Admin: 10/21/24 17:40 Dose: 25 mg Divalproex Sodium (Divalproex Sodium Er 500 Mg Tab.Er.24h) 1,500 mg PO BEDTIME [facility] Last Admin: 10/21/24 20:13 Dose: Not Given Folic Acid (Folic Acid 1 Mg Tablet) 1 mg PO DAILY [facility] Last Admin: 10/21/24 08:32 Dose: Not Given Hydroxyzine HCl (Hydroxyzine Hcl 25 Mg Tablet) 25 mg PO Q6H PRN PRN Reason: mild anxiety Last Admin: 10/21/24 17:40 Dose: 25 mg Magnesium Hydroxide (Milk Of Magnesia 30 Ml Oral.Susp) 30 ml PO DAILY PRN PRN Reason: Constipation Nicotine Polacrilex (Nicotine Polacrilex 2 Mg Gum) 4 mg BUCCAL Q2H PRN PRN Reason: Nicotine Cravings Propranolol HCl (Propranolol Hcl 20 Mg Tablet) 20 mg PO QID [facility]; Protocol Last Admin: 10/21/24 20:11 Dose: 20 mg Risperidone (Risperidone 1 Mg Tablet) 1 mg PO Q4H PRN PRN Reason: agitation Risperidone (Risperidone 0.5 Mg Tablet) 0.5 mg PO DAILY [facility] Last Admin: 10/21/24 08:30 Dose: 0.5 mg Risperidone (Risperidone 2 Mg Tablet) 2 mg PO BEDTIME [facility] Last Admin: 10/21/24 20:16 Dose: Not Given Allergies Allergies Allergy/AdvReac Type Severity Reaction Status Date / Time gluten AdvReac Gastrointestinal Verified 10/18/24 15:40 Upset lithium AdvReac Unknown Verified 10/20/24 12:06 wheat AdvReac Gastrointestinal Verified 10/18/24 15:40 Upset Assessment & Plan Assessment & Plan (1) Bipolar 1 disorder, manic, moderate: Status: Acute Code(s): F31.12 - Bipolar disorder, current episode manic without psychotic features, moderate Plan 10/19: hold stimulants and SNRI. continue valium PRN and risperidone. increase risperidone as pt allows, T/C mood stabilizer. 10/20: repeatedly asking for stimulants, repeatedly denied. 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 refusing mood stabilizer. RXed VPA and increased risperidone. decreased valium PRNs. rbyce unimproved. low folate, add supplement. 10/21: seems to have settled somewhat from admission. possibly adderall and benzo misuse could explain presentation, Dx unclear. decreased available valium PRNs to 2 per day. BPs variable, unclear why. 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 ivermectin s/e did not seem to include bryce/psychosis. Reason for continued inpatient stay Substantial Risk for: harm to self and inability to function Time Spent With Patient Time: Total time managing care of this patient today ____ minutes.
[2024-10-22] MEDS: diazePAM 5 MG TABLET 10 MG PO ×2 (03:27→17:40)
[2024-10-22] MEDS: hydrOXYzine HCL 25 MG TABLET PO ×3 (03:27→21:29)
[2024-10-22 08:35] VITALS: BP 100/59; PULSE 71; RESP 16; TEMP 36.1; O2SAT 98
[2024-10-22] MEDS: risperiDONE 0.5 MG TABLET PO (08:35)
[2024-10-22] MEDS: Propranolol HCL 20 MG TABLET PO ×4 (08:35→21:29)
[2024-10-22] MEDS: diphenhydrAMINE HCL 25 MG CAPSULE PO ×2 (09:46→21:29)
--- NOTE | 2024-10-22 09:55 | P.PNPSI_ITS ---
Subjective Subjective Date of Service: 10/22/24 Reason For Visit: SI Subjective Notes: Freire Warning and Conditional Voluntary Interim History: Calm. cooperative. keeping to self. signed CV. presents with paranoid delusions regarding her parents and them gas lighting her to look like I can't have custody of my kids . Patient denied saying she was suicidal via text or voicemail; pt stated, I don't know how they are creating these messages. They told the police I sent a text saying I'm suicidal but I'm not . pt denies SI/HI/VH/AH. Pt focused on a custody hearing she reports is scheduled in late October. After reviewing records from prior admits, pt appeared to improve on zyprexa 10mg PO BID. Patient agreed to take Zyprexa 10mg PO BID; however, declines to take mood stabilizer d/t stating, I can't take those because they make me sick . Start: Zyprexa 10mg PO BID Adderall XR 30mg PO daily Medication Compliance: Intermittent Side effects from medications: No Attending Groups: No Mental Status Exam Mental Status Exam Narrative: Pt is alert and oriented; behavior is cooperative, calm; dressed in casual attire; mood is described as anxious ; eye contact appropriate; Speech is normal rate, volume and not pressured; thought process is goal directed; Thought content is on tx; paranoid delusions.; denies SI/HI/VH/AH. Diagnostics Vital Signs (24Hr): Vital Signs - 24 hr 10/21/24 12:34 10/21/24 16:42 10/21/24 20:00 Temperature 97.6 F Pulse Rate 79 84 78 Respiratory Rate 16 Blood Pressure 144/100 H 125/79 103/74 Pulse Oximetry 97 Oxygen Delivery Method Room Air 10/21/24 20:11 10/22/24 08:35 Temperature 97 F Pulse Rate 78 71 Respiratory Rate 16 Blood Pressure 103/74 100/59 L Pulse Oximetry 98 Oxygen Delivery Method BMI result Body Mass Index 29.1 Labs 10/18/24 16:14 10/18/24 16:14 Medications Medications Current Medications Acetaminophen (Acetaminophen 325 Mg Tablet) 650 mg PO Q6H PRN PRN Reason: Headache/Pain, Scale 1-10 Al Hydroxide/Mg Hydroxide (Magnesium Hydrox/Alum Hydrox 30 Ml Oral.Susp) 30 ml PO Q6H PRN PRN Reason: Heartburn/Nausea Cyanocobalamin (Cyanocobalamin (Vitamin B-12) 100 Mcg Tablet) 100 mcg PO DAILY [facility] Last Admin: 10/22/24 08:52 Dose: Not Given Diazepam (Diazepam 5 Mg Tablet) 10 mg PO BID PRN PRN Reason: severe anxiety Last Admin: 10/22/24 03:27 Dose: 10 mg Diphenhydramine HCl (Diphenhydramine Hcl 25 Mg Capsule) 25 mg PO BID PRN PRN Reason: erythema Last Admin: 10/22/24 09:46 Dose: 25 mg Divalproex Sodium (Divalproex Sodium Er 500 Mg Tab.Er.24h) 1,500 mg PO BEDTIME [facility] Last Admin: 10/21/24 20:13 Dose: Not Given Folic Acid (Folic Acid 1 Mg Tablet) 1 mg PO DAILY [facility] Last Admin: 10/22/24 08:54 Dose: Not Given Hydroxyzine HCl (Hydroxyzine Hcl 25 Mg Tablet) 25 mg PO Q6H PRN PRN Reason: mild anxiety Last Admin: 10/22/24 09:44 Dose: 25 mg Magnesium Hydroxide (Milk Of Magnesia 30 Ml Oral.Susp) 30 ml PO DAILY PRN PRN Reason: Constipation Nicotine Polacrilex (Nicotine Polacrilex 2 Mg Gum) 4 mg BUCCAL Q2H PRN PRN Reason: Nicotine Cravings Propranolol HCl (Propranolol Hcl 20 Mg Tablet) 20 mg PO QID [facility]; Protocol Last Admin: 10/22/24 08:35 Dose: 20 mg Risperidone (Risperidone 1 Mg Tablet) 1 mg PO Q4H PRN PRN Reason: agitation Risperidone (Risperidone 0.5 Mg Tablet) 0.5 mg PO DAILY [facility] Last Admin: 10/22/24 08:35 Dose: 0.5 mg Risperidone (Risperidone 2 Mg Tablet) 2 mg PO BEDTIME [facility] Last Admin: 10/21/24 20:16 Dose: Not Given Allergies Allergies Allergy/AdvReac Type Severity Reaction Status Date / Time gluten AdvReac Gastrointestinal Verified 10/18/24 15:40 Upset lithium AdvReac Unknown Verified 10/20/24 12:06 wheat AdvReac Gastrointestinal Verified 10/18/24 15:40 Upset Assessment & Plan Assessment & Plan (1) Bipolar 1 disorder, manic, moderate: Status: Acute Code(s): F31.12 - Bipolar disorder, current episode manic without psychotic features, moderate Plan 10/19: hold stimulants and SNRI. continue valium PRN and risperidone. increase risperidone as pt allows, T/C mood stabilizer. 10/20: repeatedly asking for stimulants, repeatedly denied. asserting staffing operations manager lying to MD about things she said to them. refusing mood stabilizer. RXed VPA and increased risperidone. decreased valium PRNs. bryce unimproved. low folate, add supplement. 10/21: seems to have settled somewhat from admission. possibly adderall and benzo misuse could explain presentation, Dx unclear. decreased available valium PRNs to 2 per day. BPs variable, unclear why. still some bizarre behaviors like refusing folate when told she has a low folate level saying she has a plan with her mud trucker to address the situation. ivermectin s/e did not seem to include bryce/psychosis. 10/22: Calm. cooperative. keeping to self. signed CV. presents with paranoid delusions regarding her parents and them gas lighting her to look like I can't have custody of my kids . Patient denied saying she was suicidal via text or voicemail; pt stated, I don't know how they are creating these messages. They told the police I sent a text saying I'm suicidal but I'm not . pt denies SI/HI/VH/AH. Pt focused on a custody hearing she reports is scheduled in late October. After reviewing records from prior admits, pt appeared to improve on zyprexa 10mg PO BID. Patient agreed to take Zyprexa 10mg PO BID; however, declines to take mood stabilizer d/t stating, I can't take those because they make me sick . Start: Zyprexa 10mg PO BID Adderall XR 30mg PO daily Patient educated on: diagnosis and medication risk/benefits Reason for continued inpatient stay Substantial Risk for: med/psych decompensation Time Spent With Patient Time: Total time managing care of this patient today _20___ minutes.
[2024-10-22] MEDS: Dextroamphetamine/Amphetamine XR 10 MG CAP.ER.24H 30 MG PO (11:35)
[2024-10-22] MEDS: OLANZapine 10 MG TABLET PO ×2 (11:35→21:28)
[2024-10-22 12:46] VITALS: BP 124/84; PULSE 83
[2024-10-22 17:39] VITALS: BP 130/87; PULSE 95
[2024-10-22 21:24] VITALS: BP 115/72; PULSE 84; RESP 16; TEMP 36.7; O2SAT 98
[2024-10-23] MEDS: diazePAM 5 MG TABLET 10 MG PO ×2 (02:29→16:57)
[2024-10-23 08:03] VITALS: BP 101/68; PULSE 82; RESP 16; TEMP 36.9; O2SAT 98
[2024-10-23] MEDS: Dextroamphetamine/Amphetamine XR 10 MG CAP.ER.24H 30 MG PO (08:23)
[2024-10-23] MEDS: OLANZapine 10 MG TABLET PO ×2 (08:26→20:08)
[2024-10-23] MEDS: Propranolol HCL 20 MG TABLET PO ×4 (08:26→20:08)
--- NOTE | 2024-10-23 10:04 | P.PNPSI_ITS ---
Subjective Subjective Date of Service: 10/23/24 Reason For Visit: SI Subjective Notes: Conditional Voluntary Interim History: Attending groups. Patient reports feeling better today; pt stated, I feel like the Zyprexa is working well. I like the plan on taking these medications . Patient declined depakote last night again; DC'd depakote. Pt did not make any delusional statements during assessment today. continues to deny SI/HI/VH/AH. per nursing, slept 5 hours last night. Medication Compliance: Yes Side effects from medications: No Attending Groups: Yes Mental Status Exam Mental Status Exam Narrative: Pt is alert and oriented; behavior is cooperative, calm; dressed in casual attire; mood is described as anxious ; eye contact appropriate; Speech is normal rate, volume and not pressured; thought process is goal directed; Thought content is on tx and discharge; denies SI/HI/VH/AH. Diagnostics Vital Signs (24Hr): Vital Signs - 24 hr 10/22/24 12:46 10/22/24 17:39 10/22/24 21:24 Temperature 98.0 F Pulse Rate 83 95 84 Respiratory Rate 16 Blood Pressure 124/84 130/87 115/72 Pulse Oximetry 98 Oxygen Delivery Method Room Air 10/23/24 08:03 Temperature 98.5 F Pulse Rate 82 Respiratory Rate 16 Blood Pressure 101/68 Pulse Oximetry 98 Oxygen Delivery Method Room Air BMI result Body Mass Index 29.1 Labs 10/18/24 16:14 10/18/24 16:14 Medications Medications Current Medications Acetaminophen (Acetaminophen 325 Mg Tablet) 650 mg PO Q6H PRN PRN Reason: Headache/Pain, Scale 1-10 Al Hydroxide/Mg Hydroxide (Magnesium Hydrox/Alum Hydrox 30 Ml Oral.Susp) 30 ml PO Q6H PRN PRN Reason: Heartburn/Nausea Amphetamine/Dextroamphetamine (Dextroamphetamine/Amphetamine Xr 10 Mg Cap.Er.24h) 30 mg PO DAILY@0800 [facility] Last Admin: 10/23/24 08:23 Dose: 30 mg Cyanocobalamin (Cyanocobalamin (Vitamin B-12) 100 Mcg Tablet) 100 mcg PO DAILY [facility] Last Admin: 10/23/24 08:25 Dose: Not Given Diazepam (Diazepam 5 Mg Tablet) 10 mg PO BID PRN PRN Reason: severe anxiety Last Admin: 10/23/24 02:29 Dose: 10 mg Diphenhydramine HCl (Diphenhydramine Hcl 25 Mg Capsule) 25 mg PO BID PRN PRN Reason: erythema Last Admin: 10/22/24 21:29 Dose: 25 mg Divalproex Sodium (Divalproex Sodium Er 500 Mg Tab.Er.24h) 1,500 mg PO BEDTIME [facility] Last Admin: 10/22/24 21:31 Dose: Not Given Hydroxyzine HCl (Hydroxyzine Hcl 25 Mg Tablet) 25 mg PO Q6H PRN PRN Reason: mild anxiety Last Admin: 10/22/24 21:29 Dose: 25 mg Magnesium Hydroxide (Milk Of Magnesia 30 Ml Oral.Susp) 30 ml PO DAILY PRN PRN Reason: Constipation Nicotine Polacrilex (Nicotine Polacrilex 2 Mg Gum) 4 mg BUCCAL Q2H PRN PRN Reason: Nicotine Cravings Olanzapine (Olanzapine 10 Mg Tablet) 10 mg PO BID [facility] Last Admin: 10/23/24 08:26 Dose: 10 mg Olanzapine (Olanzapine 5 Mg Tablet) 5 mg PO Q4H PRN PRN Reason: agitation Propranolol HCl (Propranolol Hcl 20 Mg Tablet) 20 mg PO QID [facility]; Protocol Last Admin: 10/23/24 08:26 Dose: 20 mg Allergies Allergies Allergy/AdvReac Type Severity Reaction Status Date / Time gluten AdvReac Gastrointestinal Verified 10/18/24 15:40 Upset lithium AdvReac Unknown Verified 10/20/24 12:06 wheat AdvReac Gastrointestinal Verified 10/18/24 15:40 Upset Assessment & Plan Assessment & Plan (1) Bipolar 1 disorder, manic, moderate: Status: Acute Code(s): F31.12 - Bipolar disorder, current episode manic without psychotic features, moderate Plan 10/19: hold stimulants and SNRI. continue valium PRN and risperidone. increase risperidone as pt allows, T/C mood stabilizer. 10/20: repeatedly asking for stimulants, repeatedly denied. asserting staff auditor lying to MD about things she said to them. refusing mood stabilizer. RXed VPA and increased risperidone. decreased valium PRNs. bryce unimproved. low folate, add supplement. 10/21: seems to have settled somewhat from admission. possibly adderall and benzo misuse could explain presentation, Dx unclear. decreased available valium PRNs to 2 per day. BPs variable, unclear why. still some bizarre behaviors like refusing folate when told she has a low folate level saying she has a plan with her splitting machine feeder to address the situation. ivermectin s/e did not seem to include bryce/psychosis. 10/22: Calm. cooperative. keeping to self. signed CV. presents with paranoid delusions regarding her parents and them gas lighting her to look like I can't have custody of my kids . Patient denied saying she was suicidal via text or voicemail; pt stated, I don't know how they are creating these messages. They told the police I sent a text saying I'm suicidal but I'm not . pt denies SI/HI/VH/AH. Pt focused on a custody hearing she reports is scheduled in late October. After reviewing records from prior admits, pt appeared to improve on zyprexa 10mg PO BID. Patient agreed to take Zyprexa 10mg PO BID; however, declines to take mood stabilizer d/t stating, I can't take those because they make me sick . Start: Zyprexa 10mg PO BID Adderall XR 30mg PO daily 10/23: Attending groups. Patient reports feeling better today; pt stated, I feel like the Zyprexa is working well. I like the plan on taking these medications . Patient declined depakote last night again; DC'd depakote. Pt did not make any delusional statements during assessment today. continues to deny SI/HI/VH/AH. per nursing, slept 5 hours last night. Continue current tx plan. Patient educated on: diagnosis and medication risk/benefits Reason for continued inpatient stay Substantial Risk for: med/psych decompensation Time Spent With Patient Time: Total time managing care of this patient today _20___ minutes.
[2024-10-23 12:35] VITALS: BP 138/88; PULSE 92
[2024-10-23 16:57] VITALS: BP 142/91; PULSE 89
[2024-10-23] MEDS: diphenhydrAMINE HCL 25 MG CAPSULE PO (16:57)
[2024-10-23] MEDS: hydrOXYzine HCL 25 MG TABLET PO (16:57)
[2024-10-23 20:00] VITALS: BP 111/64; PULSE 78; RESP 18; TEMP 36.8; O2SAT 98
[2024-10-24] MEDS: hydrOXYzine HCL 25 MG TABLET PO ×2 (01:53→16:04)
[2024-10-24] MEDS: diphenhydrAMINE HCL 25 MG CAPSULE PO ×2 (01:53→16:04)
[2024-10-24] MEDS: diazePAM 5 MG TABLET 10 MG PO ×3 (01:53→18:00)
[2024-10-24 08:00] VITALS: BP 142/79; PULSE 84; RESP 16; TEMP 36.6; O2SAT 97
[2024-10-24] MEDS: Dextroamphetamine/Amphetamine XR 10 MG CAP.ER.24H 30 MG PO (08:04)
[2024-10-24] MEDS: OLANZapine 10 MG TABLET PO ×2 (08:04→20:08)
[2024-10-24] MEDS: Propranolol HCL 20 MG TABLET PO ×4 (08:04→20:08)
--- NOTE | 2024-10-24 09:21 | HO.PSYCHPN ---
Subjective Subjective Date of Service: 10/24/24 Reason For Visit: SI Subjective Notes: 3 Day Interim History: Signed 3 day notice. 3 day up on 10/29/24. Patient reports feeling grounded today; pt did make some paranoid statements regarding her situation, pt stated, my parents keep working with my ex to make sure I keep ending up in these places . Continues to decline mood stabilizer; pt stated, I think the zyprexa is working well and won't need anything else . denies SI/HI/VH/AH. per nursing, slept 8 hours last night. Medication Compliance: Yes Side effects from medications: No Attending Groups: Intermittent Mental Status Exam Mental Status Exam Narrative: Pt is alert and oriented; behavior is cooperative, calm; dressed in casual attire; mood is described as anxious ; eye contact appropriate; Speech is normal rate, volume and not pressured; thought process is goal directed; Thought content is on tx and discharge; paranoid at times regarding parents and ex-. denies SI/HI/VH/AH. Diagnostics Vital Signs (24Hr): Vital Signs - 24 hr 10/23/24 12:35 10/23/24 16:57 10/23/24 20:00 Temperature 98.2 F Pulse Rate 92 89 78 Respiratory Rate 18 Blood Pressure 138/88 142/91 H 111/64 Pulse Oximetry 98 Oxygen Delivery Method Room Air 10/24/24 08:00 Temperature 97.8 F Pulse Rate 84 Respiratory Rate 16 Blood Pressure 142/79 H Pulse Oximetry 97 Oxygen Delivery Method Room Air BMI result Body Mass Index 29.1 Labs 10/18/24 16:14 10/18/24 16:14 Medications Medications Current Medications Acetaminophen (Acetaminophen 325 Mg Tablet) 650 mg PO Q6H PRN PRN Reason: Headache/Pain, Scale 1-10 Al Hydroxide/Mg Hydroxide (Magnesium Hydrox/Alum Hydrox 30 Ml Oral.Susp) 30 ml PO Q6H PRN PRN Reason: Heartburn/Nausea Amphetamine/Dextroamphetamine (Dextroamphetamine/Amphetamine Xr 10 Mg Cap.Er.24h) 30 mg PO DAILY@0800 [facility] Last Admin: 10/24/24 08:04 Dose: 30 mg Cyanocobalamin (Cyanocobalamin (Vitamin B-12) 100 Mcg Tablet) 100 mcg PO DAILY [facility] Last Admin: 10/24/24 08:06 Dose: Not Given Diazepam (Diazepam 5 Mg Tablet) 10 mg PO BID PRN PRN Reason: severe anxiety Last Admin: 10/24/24 01:53 Dose: 10 mg Diphenhydramine HCl (Diphenhydramine Hcl 25 Mg Capsule) 25 mg PO BID PRN PRN Reason: erythema Last Admin: 10/24/24 01:53 Dose: 25 mg Hydroxyzine HCl (Hydroxyzine Hcl 25 Mg Tablet) 25 mg PO Q6H PRN PRN Reason: mild anxiety Last Admin: 10/24/24 01:53 Dose: 25 mg Magnesium Hydroxide (Milk Of Magnesia 30 Ml Oral.Susp) 30 ml PO DAILY PRN PRN Reason: Constipation Nicotine Polacrilex (Nicotine Polacrilex 2 Mg Gum) 4 mg BUCCAL Q2H PRN PRN Reason: Nicotine Cravings Olanzapine (Olanzapine 10 Mg Tablet) 10 mg PO BID [facility] Last Admin: 10/24/24 08:04 Dose: 10 mg Olanzapine (Olanzapine 5 Mg Tablet) 5 mg PO Q4H PRN PRN Reason: agitation Propranolol HCl (Propranolol Hcl 20 Mg Tablet) 20 mg PO QID [facility]; Protocol Last Admin: 10/24/24 08:04 Dose: 20 mg Allergies Allergies Allergy/AdvReac Type Severity Reaction Status Date / Time gluten AdvReac Gastrointestinal Verified 10/18/24 15:40 Upset lithium AdvReac Unknown Verified 10/20/24 12:06 wheat AdvReac Gastrointestinal Verified 10/18/24 15:40 Upset Assessment & Plan Assessment & Plan (1) Bipolar 1 disorder, manic, moderate: Status: Acute Code(s): F31.12 - Bipolar disorder, current episode manic without psychotic features, moderate Plan 10/19: hold stimulants and SNRI. continue valium PRN and risperidone. increase risperidone as pt allows, T/C mood stabilizer. 10/20: repeatedly asking for stimulants, repeatedly denied. asserting production staff worker lying to MD about things she said to them. refusing mood stabilizer. RXed VPA and increased risperidone. decreased valium PRNs. bryce unimproved. low folate, add supplement. 10/21: seems to have settled somewhat from admission. possibly adderall and benzo misuse could explain presentation, Dx unclear. decreased available valium PRNs to 2 per day. BPs variable, unclear why. still some bizarre behaviors like refusing folate when told she has a low folate level saying she has a plan with her filling station laborer to address the situation. ivermectin s/e did not seem to include bryce/psychosis. 10/22: Calm. cooperative. keeping to self. signed CV. presents with paranoid delusions regarding her parents and them gas lighting her to look like I can't have custody of my kids . Patient denied saying she was suicidal via text or voicemail; pt stated, I don't know how they are creating these messages. They told the police I sent a text saying I'm suicidal but I'm not . pt denies SI/HI/VH/AH. Pt focused on a custody hearing she reports is scheduled in late October. After reviewing records from prior admits, pt appeared to improve on zyprexa 10mg PO BID. Patient agreed to take Zyprexa 10mg PO BID; however, declines to take mood stabilizer d/t stating, I can't take those because they make me sick . Start: Zyprexa 10mg PO BID Adderall XR 30mg PO daily 10/23: Attending groups. Patient reports feeling better today; pt stated, I feel like the Zyprexa is working well. I like the plan on taking these medications . Patient declined depakote last night again; DC'd depakote. Pt did not make any delusional statements during assessment today. continues to deny SI/HI/VH/AH. per nursing, slept 5 hours last night. Continue current tx plan. 10/24: Signed 3 day notice. 3 day up on 10/29/24. Patient reports feeling grounded today; pt did make some paranoid statements regarding her situation, pt stated, my parents keep working with my ex to make sure I keep ending up in these places . Continues to decline mood stabilizer; pt stated, I think the zyprexa is working well and won't need anything else . denies SI/HI/VH/AH. per nursing, slept 8 hours last night. Patient educated on: diagnosis and medication risk/benefits Reason for continued inpatient stay Substantial Risk for: med/psych decompensation Time Spent With Patient Time: Total time managing care of this patient today _20___ minutes.
[2024-10-24 12:19] VITALS: BP 139/93; PULSE 101
[2024-10-24 16:53] VITALS: BP 135/86; PULSE 97
[2024-10-24 18:32] VITALS: BP 137/82; PULSE 93; RESP 19; O2SAT 98
--- NOTE | 2024-10-24 18:33 | PC.NURSE ---
Addendum entered by Brooke Mullen RN 10/24/24 19:18: Pt was re-assessed by this nurse at 19:15, and she appears to be resting comfortably in bed. Original Note: pt c/o some increased anxiety this evening. Requested another dose of her PRN's for the anxiety and pt was given PRN Valium 10mg at 1800. Half an hour later pt requested her vitals to be taken, stated my chest just feels really heavy I don't want to go into afib . Patient's vitals at 16:30 were 137/82, HR 93, o2 98, R 19.
[2024-10-24 20:00] VITALS: BP 114/58; PULSE 86; RESP 16; TEMP 36.5; O2SAT 97
[2024-10-25 08:00] VITALS: BP 142/95; PULSE 85; RESP 16; TEMP 36.4; O2SAT 100
[2024-10-25] MEDS: Dextroamphetamine/Amphetamine XR 10 MG CAP.ER.24H 30 MG PO (08:11)
[2024-10-25 08:12] VITALS: BP 142/95; PULSE 85
[2024-10-25] MEDS: OLANZapine 10 MG TABLET PO ×2 (08:12→20:08)
[2024-10-25] MEDS: Propranolol HCL 20 MG TABLET PO ×4 (08:12→20:08)
--- NOTE | 2024-10-25 11:54 | P.PNPSI_ITS ---
Subjective Subjective Date of Service: 10/25/24 Reason For Visit: SI Subjective Notes: 3 Day Healthcare Proxy: No Guardianship: No Medical Problems Affecting Mental Status: No Interim History: Angélica denies SI,HI,AH,VH. She does report racing of thought, poor focus and distraction. She asks that we return her dosage of Adderall 20 mg IR mid-day-she is tolerating Adderall XR 30 mg a.m. Will trial 10 mg. She discussed current situation at home and her concerns with immediate family, ex- and extended family. She discussed her concerns for her children and the effects this terminologist conflict has had upon them. She discussed not being able to afford an chemical detection expert, encouraged to address this with the court to assess her options. Medication Compliance: Yes Side effects from medications: No Attending Groups: Intermittent Review of Systems Acute medical concerns: No pt denies Review of Systems Review of Systems denies Mental Status Exam Mental Status Exam Patient Appearance: Fatigued Patient Orientation: Person, Place, Time and Situation Level of Consciousness: Alert Patient Behavior: Appropriate, Talkative, Cooperative, Distractible, Good Eye Contact and Crying Mood Description: Flat Affect Description: Flat Patient Cognition Impaired: No Ability to Follow Directions: Good Speech Pattern: Spontaneous Speech Memory Description: Episodic Impaired Hallucinations: None (denies) Perceptual Disturbances: Depersonalization and Derealization Thought Process: Racing, Distracted and Rumination Thought Content: positive for Circumstantial and positive for Suicidal Ideation (denies) Depressive Symptoms: Increased Fatigue Judgement: Fair Diagnostics Vital Signs (24Hr): Vital Signs - 24 hr 10/24/24 12:19 10/24/24 16:53 10/24/24 18:32 Temperature Pulse Rate 101 H 97 93 Respiratory Rate 19 Blood Pressure 139/93 H 135/86 137/82 Pulse Oximetry 98 Oxygen Delivery Method Room Air 10/24/24 20:00 10/25/24 08:00 10/25/24 08:12 Temperature 97.7 F 97.5 F Pulse Rate 86 85 85 Respiratory Rate 16 16 Blood Pressure 114/58 L 142/95 H 142/95 H Pulse Oximetry 97 100 Oxygen Delivery Method Room Air Room Air BMI result Body Mass Index 29.1 Labs 10/18/24 16:14 10/18/24 16:14 Medications Medications Current Medications Acetaminophen (Acetaminophen 325 Mg Tablet) 650 mg PO Q6H PRN PRN Reason: Headache/Pain, Scale 1-10 Al Hydroxide/Mg Hydroxide (Magnesium Hydrox/Alum Hydrox 30 Ml Oral.Susp) 30 ml PO Q6H PRN PRN Reason: Heartburn/Nausea Amphetamine/Dextroamphetamine (Dextroamphetamine/Amphetamine Xr 10 Mg Cap.Er.24h) 30 mg PO DAILY@0800 [facility] Last Admin: 10/25/24 08:11 Dose: 30 mg Cyanocobalamin (Cyanocobalamin (Vitamin B-12) 100 Mcg Tablet) 100 mcg PO DAILY [facility] Last Admin: 10/25/24 08:13 Dose: Not Given Diazepam (Diazepam 5 Mg Tablet) 10 mg PO BID PRN PRN Reason: severe anxiety Last Admin: 10/24/24 18:00 Dose: 10 mg Diphenhydramine HCl (Diphenhydramine Hcl 25 Mg Capsule) 25 mg PO BID PRN PRN Reason: erythema Last Admin: 10/24/24 16:04 Dose: 25 mg Hydroxyzine HCl (Hydroxyzine Hcl 25 Mg Tablet) 25 mg PO Q6H PRN PRN Reason: mild anxiety Last Admin: 10/24/24 16:04 Dose: 25 mg Magnesium Hydroxide (Milk Of Magnesia 30 Ml Oral.Susp) 30 ml PO DAILY PRN PRN Reason: Constipation Nicotine Polacrilex (Nicotine Polacrilex 2 Mg Gum) 4 mg BUCCAL Q2H PRN PRN Reason: Nicotine Cravings Olanzapine (Olanzapine 10 Mg Tablet) 10 mg PO BID [facility] Last Admin: 10/25/24 08:12 Dose: 10 mg Olanzapine (Olanzapine 5 Mg Tablet) 5 mg PO Q4H PRN PRN Reason: agitation Propranolol HCl (Propranolol Hcl 20 Mg Tablet) 20 mg PO QID [facility]; Protocol Last Admin: 10/25/24 08:12 Dose: 20 mg Allergies Allergies Allergy/AdvReac Type Severity Reaction Status Date / Time gluten AdvReac Gastrointestinal Verified 10/18/24 15:40 Upset lithium AdvReac Unknown Verified 10/20/24 12:06 wheat AdvReac Gastrointestinal Verified 10/18/24 15:40 Upset Assessment & Plan Assessment & Plan (1) Bipolar 1 disorder, manic, moderate: Status: Acute Code(s): F31.12 - Bipolar disorder, current episode manic without psychotic features, moderate Plan 10/19: hold stimulants and SNRI. continue valium PRN and risperidone. increase risperidone as pt allows, T/C mood stabilizer. 10/20: repeatedly asking for stimulants, repeatedly denied. asserting rn staffing lying to MD about things she said to them. refusing mood stabilizer. RXed VPA and increased risperidone. decreased valium PRNs. bryce unimproved. low folate, add supplement. 10/21: seems to have settled somewhat from admission. possibly adderall and benzo misuse could explain presentation, Dx unclear. decreased available valium PRNs to 2 per day. BPs variable, unclear why. still some bizarre behaviors like refusing folate when told she has a low folate level saying she has a plan with her [employer] certified network professional to address the situation. ivermectin s/e did not seem to include bryce/psychosis. 10/22: Calm. cooperative. keeping to self. signed CV. presents with paranoid delusions regarding her parents and them gas lighting her to look like I can't have custody of my kids . Patient denied saying she was suicidal via text or voicemail; pt stated, I don't know how they are creating these messages. They told the police I sent a text saying I'm suicidal but I'm not . pt denies SI/HI/VH/AH. Pt focused on a custody hearing she reports is scheduled in late October. After reviewing records from prior admits, pt appeared to improve on zyprexa 10mg PO BID. Patient agreed to take Zyprexa 10mg PO BID; however, declines to take mood stabilizer d/t stating, I can't take those because they make me sick . Start: Zyprexa 10mg PO BID Adderall XR 30mg PO daily 10/23: Attending groups. Patient reports feeling better today; pt stated, I feel like the Zyprexa is working well. I like the plan on taking these medications . Patient declined depakote last night again; DC'd depakote. Pt did not make any delusional statements during assessment today. continues to deny SI/HI/VH/AH. per nursing, slept 5 hours last night. Continue current tx plan. 10/24: Signed 3 day notice. 3 day up on 10/29/24. Patient reports feeling grounded today; pt did make some paranoid statements regarding her situation, pt stated, my parents keep working with my ex to make sure I keep ending up in these places . Continues to decline mood stabilizer; pt stated, I think the zyprexa is working well and won't need anything else . denies SI/HI/VH/AH. per nursing, slept 8 hours last night. 10/25: Three day notice active for 10/29/24. Asks to add Adderall IR 20 mg [id number] trial 10 mg Adderall IR at 1300, first dose today. Declined Olanzapine increase. Concerned about legal representation and her finances. Review of her perspective of current situation at home and the roles of her family and ex-. Patient educated on: medication risk/benefits and other Reason for continued inpatient stay Substantial Risk for: rapid decompensation Time Spent With Patient Time: Total time managing care of this patient today ____ minutes.
[2024-10-25 12:19] VITALS: BP 138/84; PULSE 96; RESP 16; O2SAT 100
[2024-10-25] MEDS: Amphetamine Mixed Salts 10 MG TABLET PO (13:46)
[2024-10-25] MEDS: diazePAM 5 MG TABLET 10 MG PO ×2 (13:49→17:38)
[2024-10-25 17:08] VITALS: BP 132/98; PULSE 96; RESP 20; O2SAT 99
[2024-10-25] MEDS: diphenhydrAMINE HCL 25 MG CAPSULE PO (17:38)
[2024-10-25] MEDS: hydrOXYzine HCL 25 MG TABLET PO (17:38)
[2024-10-25 20:06] VITALS: BP 137/94; PULSE 85; RESP 16; TEMP 36.4; O2SAT 100
[2024-10-26 07:55] VITALS: BP 129/74; PULSE 78; RESP 16; TEMP 36.4; O2SAT 99
[2024-10-26] MEDS: OLANZapine 10 MG TABLET PO ×2 (08:41→20:14)
[2024-10-26] MEDS: Dextroamphetamine/Amphetamine XR 10 MG CAP.ER.24H 30 MG PO (08:41)
[2024-10-26] MEDS: Propranolol HCL 20 MG TABLET PO ×4 (08:42→20:14)
--- NOTE | 2024-10-26 09:59 | P.PNPSI_ITS ---
Subjective Subjective Date of Service: 10/26/24 Reason For Visit: SI Subjective Notes: Conditional Voluntary Healthcare Proxy: No Guardianship: No Medical Problems Affecting Mental Status: No Interim History: Met with Angélica and her director global market research, Yeimy. Pt plans discharge on 10/29. She is anxious about what stressors she faces, legal issues, family issues, parenting and coparenting issues. She discussed her concerns. She reports second dosage of Adderall in the afternoon has been effective. We will continue titration to 20 mg and evaluate efficacy on 10/27. Discussed with Angélica our inability to find an collections attorney for her and that this she will need to present this issue to the court. Medication Compliance: Yes Side effects from medications: No Attending Groups: Intermittent Review of Systems Acute medical concerns: No Medical Review of Systems: unchanged Review of Systems Review of Systems Denies Mental Status Exam Mental Status Exam Patient Appearance: Fatigued Patient Orientation: Person, Place, Time and Situation Level of Consciousness: Alert Patient Behavior: Appropriate, Talkative, Cooperative, Distractible and Good Eye Contact Mood Description: Apprehensive Affect Description: Apprehensive Patient Cognition Impaired: No Ability to Follow Directions: Good Speech Pattern: Spontaneous Speech Memory Description: Episodic Impaired Hallucinations: None (denies) Perceptual Disturbances: Depersonalization and Derealization Thought Process: Racing, Distracted and Rumination Thought Content: positive for Circumstantial and positive for Suicidal Ideation (denies) Depressive Symptoms: Increased Fatigue Judgement: Good Diagnostics Vital Signs (24Hr): Vital Signs - 24 hr 10/25/24 12:19 10/25/24 17:08 10/25/24 20:06 Temperature 97.6 F Pulse Rate 96 96 85 Respiratory Rate 16 20 16 Blood Pressure 138/84 132/98 H 137/94 H Pulse Oximetry 100 99 100 Oxygen Delivery Method Room Air Room Air Room Air 10/26/24 07:55 Temperature 97.6 F Pulse Rate 78 Respiratory Rate 16 Blood Pressure 129/74 Pulse Oximetry 99 Oxygen Delivery Method Room Air BMI result Body Mass Index 29.1 Labs 10/18/24 16:14 10/18/24 16:14 Medications Medications Current Medications Acetaminophen (Acetaminophen 325 Mg Tablet) 650 mg PO Q6H PRN PRN Reason: Headache/Pain, Scale 1-10 Al Hydroxide/Mg Hydroxide (Magnesium Hydrox/Alum Hydrox 30 Ml Oral.Susp) 30 ml PO Q6H PRN PRN Reason: Heartburn/Nausea Amphetamine/Dextroamphetamine (Dextroamphetamine/Amphetamine Xr 10 Mg Cap.Er.24h) 30 mg PO DAILY@0800 [facility] Last Admin: 10/26/24 08:41 Dose: 30 mg Amphetamine/Dextroamphetamine (Amphetamine Mixed Salts 10 Mg Tablet) 10 mg PO 1300 [facility] Cyanocobalamin (Cyanocobalamin (Vitamin B-12) 100 Mcg Tablet) 100 mcg PO DAILY [facility] Last Admin: 10/26/24 09:07 Dose: Not Given Diazepam (Diazepam 5 Mg Tablet) 10 mg PO BID PRN PRN Reason: severe anxiety Last Admin: 10/25/24 17:38 Dose: 10 mg Diphenhydramine HCl (Diphenhydramine Hcl 25 Mg Capsule) 25 mg PO BID PRN PRN Reason: erythema Last Admin: 10/25/24 17:38 Dose: 25 mg Folic Acid (Folic Acid 1 Mg Tablet) 1 mg PO DAILY [facility] Last Admin: 10/26/24 09:07 Dose: Not Given Hydroxyzine HCl (Hydroxyzine Hcl 25 Mg Tablet) 25 mg PO Q6H PRN PRN Reason: mild anxiety Last Admin: 10/25/24 17:38 Dose: 25 mg Magnesium Hydroxide (Milk Of Magnesia 30 Ml Oral.Susp) 30 ml PO DAILY PRN PRN Reason: Constipation Nicotine Polacrilex (Nicotine Polacrilex 2 Mg Gum) 4 mg BUCCAL Q2H PRN PRN Reason: Nicotine Cravings Olanzapine (Olanzapine 10 Mg Tablet) 10 mg PO BID [facility] Last Admin: 10/26/24 08:41 Dose: 10 mg Olanzapine (Olanzapine 5 Mg Tablet) 5 mg PO Q4H PRN PRN Reason: agitation Propranolol HCl (Propranolol Hcl 20 Mg Tablet) 20 mg PO QID [facility]; Protocol Last Admin: 10/26/24 08:42 Dose: 20 mg Allergies Allergies Allergy/AdvReac Type Severity Reaction Status Date / Time gluten AdvReac Gastrointestinal Verified 10/18/24 15:40 Upset lithium AdvReac Unknown Verified 10/20/24 12:06 wheat AdvReac Gastrointestinal Verified 10/18/24 15:40 Upset Assessment & Plan Assessment & Plan (1) Bipolar 1 disorder, manic, moderate: Status: Acute Code(s): F31.12 - Bipolar disorder, current episode manic without psychotic features, moderate Plan 10/19: hold stimulants and SNRI. continue valium PRN and risperidone. increase risperidone as pt allows, T/C mood stabilizer. 10/20: repeatedly asking for stimulants, repeatedly denied. asserting staffing associate lying to MD about things she said to them. refusing mood stabilizer. RXed VPA and increased risperidone. decreased valium PRNs. bryce unimproved. low folate, add supplement. 10/21: seems to have settled somewhat from admission. possibly adderall and benzo misuse could explain presentation, Dx unclear. decreased available valium PRNs to 2 per day. BPs variable, unclear why. still some bizarre behaviors like refusing folate when told she has a low folate level saying she has a plan with her house worker to address the situation. ivermectin s/e did not seem to include bryce/psychosis. 10/22: Calm. cooperative. keeping to self. signed CV. presents with paranoid delusions regarding her parents and them gas lighting her to look like I can't have custody of my kids . Patient denied saying she was suicidal via text or voicemail; pt stated, I don't know how they are creating these messages. They told the police I sent a text saying I'm suicidal but I'm not . pt denies SI/HI/VH/AH. Pt focused on a custody hearing she reports is scheduled in late October. After reviewing records from prior admits, pt appeared to improve on zyprexa 10mg PO BID. Patient agreed to take Zyprexa 10mg PO BID; however, declines to take mood stabilizer d/t stating, I can't take those because they make me sick . Start: Zyprexa 10mg PO BID Adderall XR 30mg PO daily 10/23: Attending groups. Patient reports feeling better today; pt stated, I feel like the Zyprexa is working well. I like the plan on taking these medications . Patient declined depakote last night again; DC'd depakote. Pt did not make any delusional statements during assessment today. continues to deny SI/HI/VH/AH. per nursing, slept 5 hours last night. Continue current tx plan. 10/24: Signed 3 day notice. 3 day up on 10/29/24. Patient reports feeling grounded today; pt did make some paranoid statements regarding her situation, pt stated, my parents keep working with my ex to make sure I keep ending up in these places . Continues to decline mood stabilizer; pt stated, I think the zyprexa is working well and won't need anything else . denies SI/HI/VH/AH. per nursing, slept 8 hours last night. 10/25: Three day notice active for 10/29/24. Asks to add Adderall IR 20 mg [id number] trial 10 mg Adderall IR at 1300, first dose today. Declined Olanzapine increase. Concerned about legal representation and her finances. Review of her perspective of current situation at home and the roles of her family and ex-. 10/26: Preparing to discharge and manage issues with children, family, finances. Trial of mid-day Adderall tolerated. Pt asks to titrate back to preadmit dosing. Will increase 1300 Adderall IR to 20 mg. Patient educated on: medication risk/benefits and therapeutic strategies Informed Consent: understands Reason for continued inpatient stay Substantial Risk for: stable for discharge Time Spent With Patient Time: Total time managing care of this patient today ____ minutes.
[2024-10-26] MEDS: diazePAM 5 MG TABLET 10 MG PO ×2 (11:24→15:49)
[2024-10-26 12:28] VITALS: BP 133/82; PULSE 95
[2024-10-26] MEDS: Amphetamine Mixed Salts 10 MG TABLET PO (12:31)
[2024-10-26] MEDS: diphenhydrAMINE HCL 25 MG CAPSULE PO (15:48)
[2024-10-26] MEDS: hydrOXYzine HCL 25 MG TABLET PO (15:49)
[2024-10-26 17:57] VITALS: BP 144/86; PULSE 94
[2024-10-26 20:00] VITALS: BP 131/84; PULSE 86; RESP 18; TEMP 36.9; O2SAT 100
[2024-10-27] MEDS: Propranolol HCL 20 MG TABLET PO ×4 (08:25→20:08)
[2024-10-27] MEDS: Dextroamphetamine/Amphetamine XR 10 MG CAP.ER.24H 30 MG PO (08:25)
[2024-10-27] MEDS: OLANZapine 10 MG TABLET PO ×2 (08:25→20:09)
[2024-10-27 08:53] VITALS: BP 104/59; PULSE 83; RESP 14; TEMP 36.6; O2SAT 99
--- NOTE | 2024-10-27 09:07 | HO.PSYCHPN ---
Subjective Subjective Date of Service: 10/27/24 Reason For Visit: SI Interim History: Pt focused on discharge planning. Reports afternoon Adderall dose is tolerated. Will complete titration to 30 mg on 10/28. Plans discharge for 10/29. Denies SI,HI,AH,VH. No sx of active bryce or psychosis. Medication Compliance: Yes Side effects from medications: No Attending Groups: No Review of Systems Acute medical concerns: No Review of Systems Review of Systems Denies Mental Status Exam Mental Status Exam Patient Appearance: Fatigued Patient Orientation: Person, Place, Time and Situation Level of Consciousness: Alert Patient Behavior: Appropriate, Talkative, Cooperative, Distractible and Good Eye Contact Mood Description: Apprehensive Affect Description: Apprehensive Patient Cognition Impaired: No Ability to Follow Directions: Good Speech Pattern: Spontaneous Speech Memory Description: Episodic Impaired Hallucinations: None (denies) Perceptual Disturbances: Depersonalization and Derealization Thought Process: Racing, Distracted and Rumination Thought Content: positive for Circumstantial and positive for Suicidal Ideation (denies) Depressive Symptoms: Increased Fatigue Judgement: Good Diagnostics Vital Signs (24Hr): Vital Signs - 24 hr 10/26/24 12:28 10/26/24 17:57 10/26/24 20:00 Temperature 98.5 F Pulse Rate 95 94 86 Respiratory Rate 18 Blood Pressure 133/82 144/86 H 131/84 Pulse Oximetry 100 Oxygen Delivery Method Room Air 10/27/24 08:53 Temperature 97.8 F Pulse Rate 83 Respiratory Rate 14 Blood Pressure 104/59 L Pulse Oximetry 99 Oxygen Delivery Method Room Air BMI result Body Mass Index 29.1 Labs 10/18/24 16:14 10/18/24 16:14 Medications Medications Current Medications Acetaminophen (Acetaminophen 325 Mg Tablet) 650 mg PO Q6H PRN PRN Reason: Headache/Pain, Scale 1-10 Al Hydroxide/Mg Hydroxide (Magnesium Hydrox/Alum Hydrox 30 Ml Oral.Susp) 30 ml PO Q6H PRN PRN Reason: Heartburn/Nausea Amphetamine/Dextroamphetamine (Dextroamphetamine/Amphetamine Xr 10 Mg Cap.Er.24h) 30 mg PO DAILY@0800 [facility] Last Admin: 10/27/24 08:25 Dose: 30 mg Amphetamine/Dextroamphetamine (Amphetamine Mixed Salts 10 Mg Tablet) 20 mg PO DAILY@1300 [facility] Cyanocobalamin (Cyanocobalamin (Vitamin B-12) 100 Mcg Tablet) 100 mcg PO DAILY [facility] Last Admin: 10/27/24 08:27 Dose: Not Given Diazepam (Diazepam 5 Mg Tablet) 10 mg PO BID PRN PRN Reason: severe anxiety Last Admin: 10/26/24 15:49 Dose: 10 mg Diphenhydramine HCl (Diphenhydramine Hcl 25 Mg Capsule) 25 mg PO BID PRN PRN Reason: erythema Last Admin: 10/26/24 15:48 Dose: 25 mg Folic Acid (Folic Acid 1 Mg Tablet) 1 mg PO DAILY [facility] Last Admin: 10/27/24 08:27 Dose: Not Given Hydroxyzine HCl (Hydroxyzine Hcl 25 Mg Tablet) 25 mg PO Q6H PRN PRN Reason: mild anxiety Last Admin: 10/26/24 15:49 Dose: 25 mg Magnesium Hydroxide (Milk Of Magnesia 30 Ml Oral.Susp) 30 ml PO DAILY PRN PRN Reason: Constipation Nicotine Polacrilex (Nicotine Polacrilex 2 Mg Gum) 4 mg BUCCAL Q2H PRN PRN Reason: Nicotine Cravings Olanzapine (Olanzapine 10 Mg Tablet) 10 mg PO BID [facility] Last Admin: 10/27/24 08:25 Dose: 10 mg Olanzapine (Olanzapine 5 Mg Tablet) 5 mg PO Q4H PRN PRN Reason: agitation Propranolol HCl (Propranolol Hcl 20 Mg Tablet) 20 mg PO QID [facility]; Protocol Last Admin: 10/27/24 08:25 Dose: 20 mg Allergies Allergies Allergy/AdvReac Type Severity Reaction Status Date / Time gluten AdvReac Gastrointestinal Verified 10/18/24 15:40 Upset lithium AdvReac Unknown Verified 10/20/24 12:06 wheat AdvReac Gastrointestinal Verified 10/18/24 15:40 Upset Assessment & Plan Assessment & Plan (1) Bipolar 1 disorder, manic, moderate: Status: Acute Code(s): F31.12 - Bipolar disorder, current episode manic without psychotic features, moderate Plan 10/19: hold stimulants and SNRI. continue valium PRN and risperidone. increase risperidone as pt allows, T/C mood stabilizer. 10/20: repeatedly asking for stimulants, repeatedly denied. asserting balance staff staker lying to MD about things she said to them. refusing mood stabilizer. RXed VPA and increased risperidone. decreased valium PRNs. bryce unimproved. low folate, add supplement. 3/30: seems to have settled somewhat from admission. possibly adderall and benzo misuse could explain presentation, Dx unclear. decreased available valium PRNs to 2 per day. BPs variable, unclear why. still some bizarre behaviors like refusing folate when told she has a low folate level saying she has a plan with her grill chef to address the situation. ivermectin s/e did not seem to include bryce/psychosis. 10/22: Calm. cooperative. keeping to self. signed CV. presents with paranoid delusions regarding her parents and them gas lighting her to look like I can't have custody of my kids . Patient denied saying she was suicidal via text or voicemail; pt stated, I don't know how they are creating these messages. They told the police I sent a text saying I'm suicidal but I'm not . pt denies SI/HI/VH/AH. Pt focused on a custody hearing she reports is scheduled in late October. After reviewing records from prior admits, pt appeared to improve on zyprexa 10mg PO BID. Patient agreed to take Zyprexa 10mg PO BID; however, declines to take mood stabilizer d/t stating, I can't take those because they make me sick . Start: Zyprexa 10mg PO BID Adderall XR 30mg PO daily 10/23: Attending groups. Patient reports feeling better today; pt stated, I feel like the Zyprexa is working well. I like the plan on taking these medications . Patient declined depakote last night again; DC'd depakote. Pt did not make any delusional statements during assessment today. continues to deny SI/HI/VH/AH. per nursing, slept 5 hours last night. Continue current tx plan. 10/24: Signed 3 day notice. 3 day up on 10/29/24. Patient reports feeling grounded today; pt did make some paranoid statements regarding her situation, pt stated, my parents keep working with my ex to make sure I keep ending up in these places . Continues to decline mood stabilizer; pt stated, I think the zyprexa is working well and won't need anything else . denies SI/HI/VH/AH. per nursing, slept 8 hours last night. 10/25: Three day notice active for 4/7/25. Asks to add Adderall IR 20 mg [id number] trial 10 mg Adderall IR at 1300, first dose today. Declined Olanzapine increase. Concerned about legal representation and her finances. Review of her perspective of current situation at home and the roles of her family and ex-. 10/26: Preparing to discharge and manage issues with children, family, finances. Trial of mid-day Adderall tolerated. Pt asks to titrate back to preadmit dosing. Will increase 1300 Adderall IR to 20 mg. 10/27: Denies SI,HI,AH,VH. No sx of acute bryce or psychosis. Focused on organzing herself for post discharge tasks. Tolerating afternoon dose of Adderall. Will complete titration to 30 mg on 10/28. Reason for continued inpatient stay Substantial Risk for: rapid decompensation Time Spent With Patient Time: Total time managing care of this patient today ____ minutes.
[2024-10-27 12:00] VITALS: BP 134/87; PULSE 106
[2024-10-27] MEDS: Amphetamine Mixed Salts 10 MG TABLET 20 MG PO (12:23)
[2024-10-27] MEDS: diazePAM 5 MG TABLET 10 MG PO ×2 (13:09→18:16)
[2024-10-27 17:08] VITALS: BP 146/90; PULSE 101
[2024-10-27] MEDS: hydrOXYzine HCL 25 MG TABLET PO (18:15)
[2024-10-27] MEDS: diphenhydrAMINE HCL 25 MG CAPSULE PO (18:16)
[2024-10-27 20:00] VITALS: BP 147/82; PULSE 90; RESP 16; TEMP 36.5; O2SAT 97
[2024-10-28] MEDS: hydrOXYzine HCL 25 MG TABLET PO ×2 (03:40→17:37)
[2024-10-28] MEDS: diphenhydrAMINE HCL 25 MG CAPSULE PO ×2 (03:40→17:37)
[2024-10-28] MEDS: diazePAM 5 MG TABLET 10 MG PO ×2 (03:40→17:37)
[2024-10-28 08:08] VITALS: BP 126/78; PULSE 93; RESP 14; TEMP 36.4; O2SAT 97
--- NOTE | 2024-10-28 09:01 | HO.PSYCHPN ---
Subjective Subjective Date of Service: 10/28/24 Reason For Visit: SI Interim History: Today: Patient reports anticipating discharge tomorrow. There's a lot of pressure on me so everyday becomes more detrimental, I need to get working on ascertaining an senior attorney Visible on unit, mostly keeps to self. Found in side room watching tv. Was cooperative, agreeable but guarded. Discussed custody patel/legal issues and was increasingly more difficult to redirect as conversation went on, focused on her wealthy ex- who can afford litiginous tip inserter which has reportedly made it difficult for her to find someone willing to take her case. He doesnt want me to have custody. I'm getting gaslit... it's like living in fear . Also reports parents conspiring against her (?vague paranoia). She reports mood is good but understandably anxious. Denies AH/VH/SI/HI. She says she would need refills when discharged because her outpatient treaters are slow to send refills. Tuesday: Pt focused on discharge planning. Reports afternoon Adderall dose is tolerated. Will complete titration to 30 mg on 10/28. Plans discharge for 10/29. Denies SI,HI,AH,VH. No sx of active bryce or psychosis. Medication Compliance: Yes Side effects from medications: No Attending Groups: Yes Review of Systems Acute medical concerns: No Review of Systems Review of Systems Denies Yes Other (Unwilling to talk) Mental Status Exam Mental Status Exam Narrative: Pt is alert and oriented; behavior is cooperative, calm; dressed in casual attire; mood is described as anxious ; eye contact appropriate; Speech is normal rate, volume and not pressured; thought process is goal directed; Thought content is on tx and discharge; paranoid at times regarding parents and ex-. denies SI/HI/VH/AH. Patient Appearance: Fatigued Patient Orientation: Person, Place, Time and Situation Level of Consciousness: Alert Patient Behavior: Appropriate, Talkative, Cooperative, Distractible and Good Eye Contact Mood Description: Apprehensive Affect Description: Apprehensive Patient Cognition Impaired: No Ability to Follow Directions: Good Speech Pattern: Spontaneous Speech Memory Description: Episodic Impaired Diagnostics Vital Signs (24Hr): Vital Signs - 24 hr 10/27/24 12:00 10/27/24 17:08 10/27/24 20:00 Temperature 97.7 F Pulse Rate 106 H 101 H 90 Respiratory Rate 16 Blood Pressure 134/87 146/90 H 147/82 H Pulse Oximetry 97 Oxygen Delivery Method Room Air 10/28/24 08:08 Temperature 97.5 F Pulse Rate 93 Respiratory Rate 14 Blood Pressure 126/78 Pulse Oximetry 97 Oxygen Delivery Method Room Air BMI result Body Mass Index 29.1 Labs 10/18/24 16:14 10/18/24 16:14 Medications Medications Current Medications Acetaminophen (Acetaminophen 325 Mg Tablet) 650 mg PO Q6H PRN PRN Reason: Headache/Pain, Scale 1-10 Al Hydroxide/Mg Hydroxide (Magnesium Hydrox/Alum Hydrox 30 Ml Oral.Susp) 30 ml PO Q6H PRN PRN Reason: Heartburn/Nausea Amphetamine/Dextroamphetamine (Dextroamphetamine/Amphetamine Xr 10 Mg Cap.Er.24h) 30 mg PO DAILY@0800 [facility] Last Admin: 10/27/24 08:25 Dose: 30 mg Amphetamine/Dextroamphetamine (Amphetamine Mixed Salts 10 Mg Tablet) 30 mg PO DAILY@1300 [facility] Cyanocobalamin (Cyanocobalamin (Vitamin B-12) 100 Mcg Tablet) 100 mcg PO DAILY [facility] Last Admin: 10/27/24 08:27 Dose: Not Given Diazepam (Diazepam 5 Mg Tablet) 10 mg PO BID PRN PRN Reason: severe anxiety Last Admin: 10/28/24 03:40 Dose: 10 mg Diphenhydramine HCl (Diphenhydramine Hcl 25 Mg Capsule) 25 mg PO BID PRN PRN Reason: erythema Last Admin: 10/28/24 03:40 Dose: 25 mg Folic Acid (Folic Acid 1 Mg Tablet) 1 mg PO DAILY [facility] Last Admin: 10/27/24 08:27 Dose: Not Given Hydroxyzine HCl (Hydroxyzine Hcl 25 Mg Tablet) 25 mg PO Q6H PRN PRN Reason: mild anxiety Last Admin: 10/28/24 03:40 Dose: 25 mg Magnesium Hydroxide (Milk Of Magnesia 30 Ml Oral.Susp) 30 ml PO DAILY PRN PRN Reason: Constipation Nicotine Polacrilex (Nicotine Polacrilex 2 Mg Gum) 4 mg BUCCAL Q2H PRN PRN Reason: Nicotine Cravings Olanzapine (Olanzapine 10 Mg Tablet) 10 mg PO BID [facility] Last Admin: 10/27/24 20:09 Dose: 10 mg Olanzapine (Olanzapine 5 Mg Tablet) 5 mg PO Q4H PRN PRN Reason: agitation Propranolol HCl (Propranolol Hcl 20 Mg Tablet) 20 mg PO QID [facility]; Protocol Last Admin: 10/27/24 20:08 Dose: 20 mg Allergies Allergies Allergy/AdvReac Type Severity Reaction Status Date / Time gluten AdvReac Gastrointestinal Verified 10/18/24 15:40 Upset lithium AdvReac Unknown Verified 10/20/24 12:06 wheat AdvReac Gastrointestinal Verified 10/18/24 15:40 Upset Assessment & Plan Assessment & Plan (1) Bipolar 1 disorder, manic, moderate: Status: Acute Code(s): F31.12 - Bipolar disorder, current episode manic without psychotic features, moderate Plan 10/19: hold stimulants and SNRI. continue valium PRN and risperidone. increase risperidone as pt allows, T/C mood stabilizer. 10/20: repeatedly asking for stimulants, repeatedly denied. asserting staff training and development manager lying to MD about things she said to them. refusing mood stabilizer. RXed VPA and increased risperidone. decreased valium PRNs. bryce unimproved. low folate, add supplement. 10/21: seems to have settled somewhat from admission. possibly adderall and benzo misuse could explain presentation, Dx unclear. decreased available valium PRNs to 2 per day. BPs variable, unclear why. still some bizarre behaviors like refusing folate when told she has a low folate level saying she has a plan with her training manager to address the situation. ivermectin s/e did not seem to include bryce/psychosis. 10/22: Calm. cooperative. keeping to self. signed CV. presents with paranoid delusions regarding her parents and them gas lighting her to look like I can't have custody of my kids . Patient denied saying she was suicidal via text or voicemail; pt stated, I don't know how they are creating these messages. They told the police I sent a text saying I'm suicidal but I'm not . pt denies SI/HI/VH/AH. Pt focused on a custody hearing she reports is scheduled in late October. After reviewing records from prior admits, pt appeared to improve on zyprexa 10mg PO BID. Patient agreed to take Zyprexa 10mg PO BID; however, declines to take mood stabilizer d/t stating, I can't take those because they make me sick . Start: Zyprexa 10mg PO BID Adderall XR 30mg PO daily 10/23: Attending groups. Patient reports feeling better today; pt stated, I feel like the Zyprexa is working well. I like the plan on taking these medications . Patient declined depakote last night again; DC'd depakote. Pt did not make any delusional statements during assessment today. continues to deny SI/HI/VH/AH. per nursing, slept 5 hours last night. Continue current tx plan. 10/24: Signed 3 day notice. 3 day up on 10/29/24. Patient reports feeling grounded today; pt did make some paranoid statements regarding her situation, pt stated, my parents keep working with my ex to make sure I keep ending up in these places . Continues to decline mood stabilizer; pt stated, I think the zyprexa is working well and won't need anything else . denies SI/HI/VH/AH. per nursing, slept 8 hours last night. 10/25: Three day notice active for 10/29/24. Asks to add Adderall IR 20 mg [id number] trial 10 mg Adderall IR at 1300, first dose today. Declined Olanzapine increase. Concerned about legal representation and her finances. Review of her perspective of current situation at home and the roles of her family and ex-. 10/26: Preparing to discharge and manage issues with children, family, finances. Trial of mid-day Adderall tolerated. Pt asks to titrate back to preadmit dosing. Will increase 1300 Adderall IR to 20 mg. 10/27: Denies SI,HI,AH,VH. No sx of acute bryce or psychosis. Focused on organzing herself for post discharge tasks. Tolerating afternoon dose of Adderall. Will complete titration to 30 mg on 10/28. 10/28: No change .Denies SI,HI,AH,VH. No sx of acute bryce or psychosis. Focused on organizing herself for post discharge tasks. Med compliant and well-tolerated. Reason for continued inpatient stay Substantial Risk for: med/psych decompensation Time Spent With Patient Time: Total time managing care of this patient today ____ minutes.
[2024-10-28] MEDS: OLANZapine 10 MG TABLET PO ×2 (09:13→20:26)
[2024-10-28] MEDS: Dextroamphetamine/Amphetamine XR 10 MG CAP.ER.24H 30 MG PO (09:13)
[2024-10-28] MEDS: Cyanocobalamin (Vitamin B-12) 100 MCG TABLET PO (09:13)
[2024-10-28] MEDS: Propranolol HCL 20 MG TABLET PO ×4 (09:13→20:26)
[2024-10-28] MEDS: Folic Acid 1 MG TABLET PO (09:14)
[2024-10-28 12:18] VITALS: BP 137/99; PULSE 92
[2024-10-28] MEDS: Amphetamine Mixed Salts 10 MG TABLET 30 MG PO (12:18)
[2024-10-28 17:37] VITALS: BP 146/93; PULSE 88
[2024-10-28 20:15] VITALS: BP 132/82; PULSE 103; RESP 18; TEMP 36.8; O2SAT 98
[2024-10-28 20:26] VITALS: BP 132/82; PULSE 100
[2024-10-29] MEDS: hydrOXYzine HCL 25 MG TABLET PO (05:14)
[2024-10-29] MEDS: diphenhydrAMINE HCL 25 MG CAPSULE PO (05:14)
[2024-10-29] MEDS: diazePAM 5 MG TABLET 10 MG PO (05:14)
[2024-10-29 07:51] VITALS: BP 112/60; PULSE 79; RESP 16; TEMP 36.7; O2SAT 97
--- NOTE | 2024-10-29 08:00 | ECG_ITS ---
Test Reason : RECENT ADDERALL TITRATION, HX AFB Blood Pressure : */* mmHG Vent. Rate : 77 BPM Atrial Rate : 77 BPM P-R Int : 144 ms QRS Dur : 76 ms QT Int : 396 ms P-R-T Axes : 60 34 64 degrees QTcB Int : 448 ms Normal sinus rhythm Nonspecific T wave abnormality Abnormal ECG When compared with ECG of 19-Oct-2024 13:22, No significant change was found Referred By: Paige Mccallum Electronically Signed By: Fredy Pina
[2024-10-29] MEDS: Dextroamphetamine/Amphetamine XR 10 MG CAP.ER.24H 30 MG PO (08:27)
[2024-10-29] MEDS: Propranolol HCL 20 MG TABLET PO (08:28)
[2024-10-29] MEDS: OLANZapine 10 MG TABLET PO (08:28)
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
== END 2024-10-29 11:00 | disposition home or self-care (01) | DRG 885 ==
LOC: HO.ED 10-19 08:41 → HO.PADLT16 10-19 14:13
PROVIDERS: Admitting Provider Psychiatry & Neurology Psychiatry; Emergency Provider Emergency Medicine; Responsible Provider Registered Nurse; Visit Provider Psychiatry & Neurology Psychiatry
DX: F31.12 Bipolar disorder, current episode manic without psychotic features, moderate (principal); R45.851 Suicidal ideations; Z79.899 Other long term (current) drug therapy
CPT/HCPCS: 36415; 80053; 80061; 80307; 81001; 81025; 82607; 82746; 83036; 84439; 84443; 85007; 85027; 87086; 93005; 99285

== ENCOUNTER → 2024-10-19 12:03 | Outpatient (BNV) | payer MEDICARE, MEDICAID, SELFPAY | PROVIDERS: Emergency Provider Emergency Medicine; Visit Provider Internal Medicine Cardiovascular Disease | DX: R94.31 Abnormal electrocardiogram [ECG] [EKG] (principal); Z13.6 Encounter for screening for cardiovascular disorders | CPT/HCPCS: 93010 ==

== ENCOUNTER 2024-10-19 14:08 | Outpatient (BNV) | payer MEDICARE, MEDICAID, SELFPAY | END 2024-10-29 08:00 | PROVIDERS: Admitting Provider Psychiatry & Neurology Psychiatry; Emergency Provider Emergency Medicine; Responsible Provider Registered Nurse; Visit Provider Internal Medicine Cardiovascular Disease | DX: R94.31 Abnormal electrocardiogram [ECG] [EKG] (principal); F15.20 Other stimulant dependence, uncomplicated | CPT/HCPCS: 93010 ==

== ENCOUNTER → 2024-10-19 14:08 | Outpatient (BNV) | payer MEDICARE, MEDICAID, SELFPAY | PROVIDERS: Admitting Provider Psychiatry & Neurology Psychiatry; Emergency Provider Emergency Medicine; Visit Provider Psychiatry & Neurology Psychiatry | DX: F31.12 Bipolar disorder, current episode manic without psychotic features, moderate (principal) | CPT/HCPCS: 99231 ==

== ENCOUNTER 2025-01-29 23:20 | Inpatient (IN) | payer OTHER, MEDICARE, MEDICAID, SELFPAY ==
--- NOTE | 2025-01-29 | ECG_ITS ---
Test Reason : cp Blood Pressure : */* mmHG Vent. Rate : 103 BPM Atrial Rate : 103 BPM P-R Int : 134 ms QRS Dur : 74 ms QT Int : 336 ms P-R-T Axes : 37 6 36 degrees QTcB Int : 440 ms Sinus tachycardia Possible Left atrial enlargement Minimal voltage criteria for LVH, may be normal variant ( R in aVL ) Nonspecific T wave abnormality Abnormal ECG When compared with ECG of 29-Oct-2024 10:17, Nonspecific T wave abnormality now evident in Inferior leads Referred By: Generic ED Physician Electronically Signed By: Fredy Pina
[2025-01-29 23:32] VITALS: BP 151/109; PULSE 105; RESP 20; TEMP 36.8; O2SAT 98; BMI 29.5
[2025-01-30 00:04] LABS: MANUAL DIFF FLAG NO
--- NOTE | 2025-01-30 00:18 | PC.NURSE ---
upon arrival to unit client engaged with tech regarding circumstance surrounding her arrival client expresses feelings of isolation, and ahving nothing to live for not having slept for days will continue interview as client adjourns to room.
[2025-01-30 00:22] LABS: Acetaminophen LAB < 3 mcg/mL (<30); Alanine Aminotransferase 47 U/L (0-31); Albumin Level 4.4 g/dL (3.5-5.0); Alkaline Phosphatase 83 U/L (39-117); Anion Gap 14 (12-20); Aspartate Amino Transferase 44 U/L (5-31); Blood Urea Nitrogen 7 mg/dL (9-16); Calcium 9.1 mg/dL (8.4-10.2); Carbon Dioxide 22 mmol/L (22-29); Chloride 108 mmol/L (96-108); Creatinine Clr Calc Pharmacy 130.5; Estimated Glomerular Filt Rate > 60; Potassium 4.8 mmol/L (3.3-5.1); Salicylate < 5.0 mg/dL (15-30); Sodium 139 mmol/L (135-145); Total Protein 7.8 g/dL (6.5-8.0)
[2025-01-30 00:52] LABS: Hematocrit 38.5 % (37.0-47.0); Hemoglobin 12.9 g/dl (12.0-16.0); Imm Gran Abs Auto 0.08 X10*3/uL (0.00-0.03); Imm Gran Pct Auto 0.6 % (0.0-0.4); Lymphocytes Absolute Auto 3.0 X10*3/uL (1.2-4.9); Mean Corpuscular HGB Conc 33.5 g/dl (31.0-35.0); Mean Corpuscular Hemoglobin 26.7 pg (27.0-33.0); Mean Corpuscular Volume 79.5 fL (80.0-98.0); NRBC Abs Auto 0.000 X10*3/uL (0.0-0.012); NRBC Pct Auto 0.0 /100WBC (0.0-0.2); Platelet Count 511 X10*3/uL (160-400); Red Blood Count 4.84 X10*6/uL (4.20-5.50); White Blood Count 13.3 X10*3/uL (4.8-10.8)
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
--- NOTE | 2025-01-30 01:20 | PC.NURSE ---
reports of all medications client hasnt taken zyprexa in 2 months, all meds for about 2-3 days. when confronted with get yourself happy before trying to change custody of children, pt seemed to shun this logic/idea, blaming the absence of children for the change in mental health. (patient reports no sleep for 9 days)
--- NOTE | 2025-01-30 01:26 | PC.NURSE ---
i didnt have kids to live alone
[2025-01-30 01:40] LABS: Appearance Urine Clear; Glucose Urine UA Negative (Negative); PH 6.0 (5.0-9.0); Specific Gravity - Urine 1.020 (1.005-1.025)
[2025-01-30 01:41] LABS: UPreg QC Valid YES
[2025-01-30 01:52] LABS: Cannabinoid Screen Urine Not Detected (Not Detect)
--- NOTE | 2025-01-30 02:54 | PC.NURSE ---
got up and asked for emesis basin given , used restroom. during interview denied etoh drug use and hallucinations
--- NOTE | 2025-01-30 04:27 | PC.NURSE ---
got up to use rest room and got two sandwiches to eat fillings (w/out bread)
[2025-01-30 06:45] VITALS: BMI 25.6
[2025-01-30] MEDS: Dextroamphetamine/Amphetamine XR 10 MG CAP.ER.24H 30 MG PO (09:30)
[2025-01-30 10:42] VITALS: BP 134/93; PULSE 85; RESP 16; TEMP 36.2; O2SAT 97
--- NOTE | 2025-01-30 12:31 | PHA.MEDREC ---
Pharmacy Consult ? Medication Reconciliation Pharmacy has completed the medication reconciliation.
--- NOTE | 2025-01-30 12:50 | MHC.EDTECH ---
Patient requesting glasses and contacts. Obtained one pair of patients glasses from pink checkered bag and one set of contacts. Contacts at nurses station for one patient is ready to use them and the glasses are at bedside.
[2025-01-30] MEDS: Amphetamine Mixed Salts 10 MG TABLET 30 MG PO (13:04)
[2025-01-30 14:23] VITALS: BMI 29.9
[2025-01-30 14:25] VITALS: BP 134/92; PULSE 92; TEMP 36.2; O2SAT 97
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
[2025-01-30 20:00] VITALS: BP 142/69; PULSE 92; RESP 18; TEMP 36.9; O2SAT 98
[2025-01-31 08:00] VITALS: BP 108/69; PULSE 87; RESP 16; TEMP 36.4; O2SAT 96
[2025-01-31] MEDS: Dextroamphetamine/Amphetamine XR 10 MG CAP.ER.24H 30 MG PO (08:54)
[2025-01-31 09:26] LABS: Hemoglobin A1C 126.8404 umol/L; Total Hemoglobin (HGBA1C) 3282.4868 umol/L
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
[2025-01-31 09:39] LABS: Cholesterol 201 mg/dL (<200); HDL Cholesterol 51 mg/dL (>40); Magnesium 2.0 mg/dL (1.6-2.6); Triglycerides 170 mg/dL (<150)
[2025-01-31 09:58] LABS: Free T4 (Free Thyroxine) 0.74 ng/dL (0.71-1.85); Thyroid Stimulating Hormone 2.73 uIU/mL (0.32-4.0)
[2025-01-31 10:13] LABS: Folate 3.4 ng/mL (> or = 4.0); Vitamin B12 196 pg/mL (200-900)
[2025-01-31] MEDS: Amphetamine Mixed Salts 10 MG TABLET 30 MG PO (12:41)
[2025-01-31 14:43] VITALS: BP 126/78; PULSE 82
[2025-01-31 20:00] VITALS: BP 109/54; PULSE 87; TEMP 36.4; O2SAT 96
[2025-01-31 21:12] VITALS: BP 109/54; PULSE 87
[2025-02-01 08:21] VITALS: BP 102/59; PULSE 79; TEMP 36.6; O2SAT 99
[2025-02-01] MEDS: Dextroamphetamine/Amphetamine XR 10 MG CAP.ER.24H 30 MG PO (09:30)
--- NOTE | 2025-02-01 10:36 | P.PNPSI_ITS ---
Subjective Subjective Date of Service: 02/01/25 Reason For Visit: PTSD, Bipolar disorder with psychosis Subjective Notes: Conditional Voluntary Healthcare Proxy: No Guardianship: No Medical Problems Affecting Mental Status: No Interim History: Angélica reports continued depressive sx, feeling as if ex-, parents have defeated her efforts to have a relationship with her children. Reports low energy, more visable in milieu today with increased brief interactions with the team. Declines medication changes. Starting to attend groups as well. I need to gather my thoughts, take some notes, and plan my strategy to fight this, but I am having a hard time. Medication Compliance: Yes Side effects from medications: No Attending Groups: Yes Review of Systems Acute medical concerns: No Medical Review of Systems: unchanged Review of Systems Review of Systems I am ok Mental Status Exam Mental Status Exam Patient Appearance: Appropriate Patient Orientation: Person, Place, Time and Situation Level of Consciousness: Alert Patient Behavior: Talkative and Good Eye Contact Mood Description: Depressed Affect Description: Flat Patient Cognition Impaired: No Ability to Follow Directions: Good Speech Pattern: Spontaneous Speech Memory Description: Episodic Impaired Hallucinations: None Perceptual Disturbances: Depersonalization and Derealization Thought Process: Distracted and Rumination Thought Content: positive for Obsessional Thoughts, positive for Circumstantial, positive for Perseveration, positive for Preoccupation, positive for Slowed Thinking and positive for Suicidal Ideation Depressive Symptoms: Feelings of Worthlessness, Hopelessness, Isolating- Friends/Family, Increased Fatigue, Thoughts of /Suicide, Low Self Esteem, Loss of Energy and Difficulty Concentrating Judgement: Fair Diagnostics Vital Signs (24Hr): Vital Signs - 24 hr 01/31/25 14:43 01/31/25 20:00 01/31/25 21:12 Temperature 97.5 F Pulse Rate 82 87 87 Blood Pressure 126/78 109/54 L 109/54 L Pulse Oximetry 96 Oxygen Delivery Method Room Air 02/01/25 08:21 Temperature 98 F Pulse Rate 79 Blood Pressure 102/59 L Pulse Oximetry 99 Oxygen Delivery Method Room Air BMI result Body Mass Index 29.9 Labs 01/29/25 23:58 01/29/25 23:58 Labs: Laboratory Results - last 48 hr 01/31/25 09:00 Estimat Average Glucose 117 Hemoglobin A1c % 5.7 Magnesium 2.0 Triglycerides 170 H Cholesterol 201 H LDL Cholesterol, Calc 116 H HDL Cholesterol 51 Vitamin B12 196 L Folate 3.4 L TSH 2.73 Free T4 0.74 Medications Medications Current Medications Acetaminophen (Acetaminophen 325 Mg Tablet) 650 mg PO Q6H PRN PRN Reason: Headache/Pain, Scale 1-10 Last Admin: 01/31/25 21:13 Dose: 650 mg Al Hydroxide/Mg Hydroxide (Magnesium Hydrox/Alum Hydrox 30 Ml Oral.Susp) 30 ml PO Q6H PRN PRN Reason: Heartburn/Nausea Amphetamine/Dextroamphetamine (Amphetamine Mixed Salts 10 Mg Tablet) 30 mg PO DAILY@1200 [facility] Last Admin: 01/31/25 12:41 Dose: 30 mg Amphetamine/Dextroamphetamine (Dextroamphetamine/Amphetamine Xr 10 Mg Cap.Er.24h) 30 mg PO DAILY [facility] Last Admin: 02/01/25 09:30 Dose: 30 mg Diazepam (Diazepam 5 Mg Tablet) 10 mg PO BID PRN PRN Reason: severe anxiety Last Admin: 01/31/25 14:46 Dose: 10 mg Diphenhydramine HCl (Diphenhydramine Hcl 25 Mg Capsule) 25 mg PO BID PRN PRN Reason: Anxiety Last Admin: 01/31/25 21:11 Dose: 25 mg Duloxetine HCl (Duloxetine Hcl 30 Mg Capsule.Dr) 30 mg PO BIDWM [facility] Last Admin: 02/01/25 08:00 Dose: 30 mg Hydroxyzine HCl (Hydroxyzine Hcl 25 Mg Tablet) 25 mg PO Q6H PRN PRN Reason: mild anxiety Magnesium Hydroxide (Milk Of Magnesia 30 Ml Oral.Susp) 30 ml PO DAILY PRN PRN Reason: Constipation Nicotine Polacrilex (Nicotine Polacrilex 2 Mg Gum) 4 mg BUCCAL Q2H PRN PRN Reason: Nicotine Cravings Olanzapine (Olanzapine 10 Mg Tablet) 10 mg PO BID [facility] Last Admin: 02/01/25 09:30 Dose: 10 mg Propranolol HCl (Propranolol Hcl 20 Mg Tablet) 20 mg PO TID [facility]; Protocol Last Admin: 02/01/25 09:30 Dose: 20 mg Trazodone HCl (Trazodone Hcl 50 Mg Tablet) 50 mg PO BEDTIME MRX1 PRN PRN Reason: Insomnia Last Admin: 01/31/25 21:11 Dose: 50 mg Allergies Allergies Allergy/AdvReac Type Severity Reaction Status Date / Time gluten AdvReac Gastrointestinal Verified 01/30/25 06:48 Upset lithium AdvReac Unknown Verified 01/30/25 06:48 wheat AdvReac Gastrointestinal Verified 01/30/25 06:48 Upset Assessment & Plan Assessment & Plan (1) PTSD (post-traumatic stress disorder): Status: Acute Code(s): F43.10 - Post-traumatic stress disorder, unspecified (2) Bipolar disorder with psychotic features: Status: Acute Code(s): F31.9 - Bipolar disorder, unspecified Plan Admit, CV, 15 minute checks Collateral contact Help pt reconnect to OP resources and with her community again Medication assessement-continue current regime at this time Diagnostics as needed Encourage full milieu Discharge planning 02/01/25- Increase Valium prn to TID (dosing pt uses at home) Thiamine 100 mg daily (B12 level 196) Folic Acid 1 mg daily (Folic Acid level 3.4) Informed Consent: understands Reason for continued inpatient stay Substantial Risk for: rapid decompensation Time Spent With Patient Time: Total time managing care of this patient today ____ minutes.
[2025-02-01] MEDS: Amphetamine Mixed Salts 10 MG TABLET 30 MG PO (12:50)
[2025-02-01 15:43] VITALS: BP 131/90; PULSE 96
[2025-02-01 19:50] VITALS: BP 138/72; PULSE 92; RESP 18; TEMP 37.1; O2SAT 98
[2025-02-02 09:03] VITALS: BP 134/70; PULSE 91; TEMP 36.9; O2SAT 96
[2025-02-02] MEDS: Dextroamphetamine/Amphetamine XR 10 MG CAP.ER.24H 30 MG PO (09:03)
--- NOTE | 2025-02-02 09:12 | HO.PSYCHPN ---
Subjective Subjective Date of Service: 02/02/25 Reason For Visit: PTSD, Bipolar disorder with psychosis Interim History: met with patient; discussed with team; reviewed chart pt says she's fair... and trying to rest after dealing with distressing news dealing with this past week. Pt's valium recently increased; she's trying to use less than offered. Diagnostics Vital Signs (24Hr): Vital Signs - 24 hr 02/01/25 15:43 02/01/25 19:50 02/02/25 09:03 Temperature 98.8 F Pulse Rate 96 92 91 Respiratory Rate 18 Blood Pressure 131/90 H 138/72 134/70 Pulse Oximetry 98 Oxygen Delivery Method Room Air BMI result Body Mass Index 29.9 Labs 01/29/25 23:58 01/29/25 23:58 Labs: Laboratory Results - last 48 hr 01/31/25 09:00 Estimat Average Glucose 117 Hemoglobin A1c % 5.7 Magnesium 2.0 Triglycerides 170 H Cholesterol 201 H LDL Cholesterol, Calc 116 H HDL Cholesterol 51 Vitamin B12 196 L Folate 3.4 L TSH 2.73 Free T4 0.74 Medications Medications Current Medications Acetaminophen (Acetaminophen 325 Mg Tablet) 650 mg PO Q6H PRN PRN Reason: Headache/Pain, Scale 1-10 Last Admin: 01/31/25 21:13 Dose: 650 mg Al Hydroxide/Mg Hydroxide (Magnesium Hydrox/Alum Hydrox 30 Ml Oral.Susp) 30 ml PO Q6H PRN PRN Reason: Heartburn/Nausea Amphetamine/Dextroamphetamine (Amphetamine Mixed Salts 10 Mg Tablet) 30 mg PO DAILY@1200 [facility] Last Admin: 02/01/25 12:50 Dose: 30 mg Amphetamine/Dextroamphetamine (Dextroamphetamine/Amphetamine Xr 10 Mg Cap.Er.24h) 30 mg PO DAILY [facility] Last Admin: 02/02/25 09:03 Dose: 30 mg Diazepam (Diazepam 5 Mg Tablet) 10 mg PO TID PRN PRN Reason: severe anxiety Last Admin: 02/01/25 22:11 Dose: 10 mg Diphenhydramine HCl (Diphenhydramine Hcl 25 Mg Capsule) 25 mg PO BID PRN PRN Reason: Anxiety Last Admin: 02/01/25 22:11 Dose: 25 mg Duloxetine HCl (Duloxetine Hcl 30 Mg Capsule.Dr) 30 mg PO BIDWM [facility] Last Admin: 02/02/25 09:04 Dose: 30 mg Folic Acid (Folic Acid 1 Mg Tablet) 1 mg PO DAILY [facility] Last Admin: 02/02/25 09:03 Dose: 1 mg Hydroxyzine HCl (Hydroxyzine Hcl 25 Mg Tablet) 25 mg PO Q6H PRN PRN Reason: mild anxiety Magnesium Hydroxide (Milk Of Magnesia 30 Ml Oral.Susp) 30 ml PO DAILY PRN PRN Reason: Constipation Nicotine Polacrilex (Nicotine Polacrilex 2 Mg Gum) 4 mg BUCCAL Q2H PRN PRN Reason: Nicotine Cravings Olanzapine (Olanzapine 10 Mg Tablet) 10 mg PO BID [facility] Last Admin: 02/02/25 09:03 Dose: 10 mg Propranolol HCl (Propranolol Hcl 20 Mg Tablet) 20 mg PO TID [facility]; Protocol Last Admin: 02/02/25 09:03 Dose: 20 mg Thiamine HCl (Thiamine Hcl 100 Mg Tablet) 100 mg PO DAILY [facility] Last Admin: 02/02/25 09:03 Dose: 100 mg Trazodone HCl (Trazodone Hcl 50 Mg Tablet) 50 mg PO BEDTIME MRX1 PRN PRN Reason: Insomnia Last Admin: 02/01/25 22:11 Dose: 50 mg Allergies Allergies Allergy/AdvReac Type Severity Reaction Status Date / Time gluten AdvReac Gastrointestinal Verified 01/30/25 06:48 Upset lithium AdvReac Unknown Verified 01/30/25 06:48 wheat AdvReac Gastrointestinal Verified 01/30/25 06:48 Upset Assessment & Plan Assessment & Plan (1) Bipolar disorder with psychotic features: Status: Acute Code(s): F31.9 - Bipolar disorder, unspecified (2) PTSD (post-traumatic stress disorder): Status: Acute Code(s): F43.10 - Post-traumatic stress disorder, unspecified Plan Admit, CV, 15 minute checks Collateral contact Help pt reconnect to OP resources and with her community again Medication assessement-continue current regime at this time Diagnostics as needed Encourage full milieu Discharge planning 02/01/25- Increase Valium prn to TID (dosing pt uses at home) Thiamine 100 mg daily (B12 level 196) Folic Acid 1 mg daily (Folic Acid level 3.4) 02/02 pt says she's fair... and trying to rest after dealing with distressing news dealing with this past week. Pt's valium recently increased; she's trying to use less than offered. Patient educated on: diagnosis, medication risk/benefits and therapeutic strategies Informed Consent: understands Reason for continued inpatient stay Substantial Risk for: rapid decompensation Time Spent With Patient Time: Total time managing care of this patient today ____ minutes.
[2025-02-02] MEDS: Amphetamine Mixed Salts 10 MG TABLET 30 MG PO (12:20)
[2025-02-02 15:19] VITALS: BP 140/94; PULSE 114
[2025-02-02 20:00] VITALS: BP 119/73; PULSE 100; RESP 18; TEMP 36.4; O2SAT 92
[2025-02-03 08:00] VITALS: BP 127/82; PULSE 98; RESP 16; TEMP 36.9; O2SAT 94
[2025-02-03] MEDS: Dextroamphetamine/Amphetamine XR 10 MG CAP.ER.24H 30 MG PO (08:39)
--- NOTE | 2025-02-03 11:03 | P.PNPSI_ITS ---
Subjective Subjective Date of Service: 02/03/25 Reason For Visit: PTSD, Bipolar disorder with psychosis Interim History: met with pt; discussed with team Patient says she is okay; still resting; no SI. Says can not do much with DCF on the weekend Mental Status Exam Mental Status Exam Patient Appearance: Appropriate Patient Orientation: Person, Place, Time and Situation Level of Consciousness: Alert Patient Behavior: Talkative and Good Eye Contact Mood Description: Depressed ( [place] ) Affect Description: Flat Patient Cognition Impaired: No Ability to Follow Directions: Good Speech Pattern: Spontaneous Speech Memory Description: Episodic Impaired Hallucinations: None Perceptual Disturbances: Depersonalization and Derealization Thought Process: Distracted and Rumination Thought Content: positive for Obsessional Thoughts, positive for Circumstantial, positive for Perseveration, positive for Preoccupation, positive for Slowed Thinking and positive for Suicidal Ideation (None) Depressive Symptoms: Feelings of Worthlessness, Hopelessness, Isolating- Friends/Family, Increased Fatigue, Low Self Esteem, Loss of Energy and Difficulty Concentrating Judgement: Fair Diagnostics Vital Signs (24Hr): Vital Signs - 24 hr 02/02/25 15:19 02/02/25 20:00 02/03/25 08:00 Temperature 97.5 F 98.4 F Pulse Rate 114 H 100 98 Respiratory Rate 18 16 Blood Pressure 140/94 H 119/73 127/82 Pulse Oximetry 92 94 Oxygen Delivery Method Room Air Room Air BMI result Body Mass Index 29.9 Labs 01/29/25 23:58 01/29/25 23:58 Medications Medications Current Medications Acetaminophen (Acetaminophen 325 Mg Tablet) 650 mg PO Q6H PRN PRN Reason: Headache/Pain, Scale 1-10 Last Admin: 01/31/25 21:13 Dose: 650 mg Al Hydroxide/Mg Hydroxide (Magnesium Hydrox/Alum Hydrox 30 Ml Oral.Susp) 30 ml PO Q6H PRN PRN Reason: Heartburn/Nausea Amphetamine/Dextroamphetamine (Amphetamine Mixed Salts 10 Mg Tablet) 30 mg PO DAILY@1200 [facility] Last Admin: 02/02/25 12:20 Dose: 30 mg Amphetamine/Dextroamphetamine (Dextroamphetamine/Amphetamine Xr 10 Mg Cap.Er.24h) 30 mg PO DAILY [facility] Last Admin: 02/03/25 08:39 Dose: 30 mg Diazepam (Diazepam 5 Mg Tablet) 10 mg PO TID PRN PRN Reason: severe anxiety Last Admin: 02/02/25 22:02 Dose: 10 mg Diphenhydramine HCl (Diphenhydramine Hcl 25 Mg Capsule) 25 mg PO BID PRN PRN Reason: Anxiety Last Admin: 02/02/25 22:02 Dose: 25 mg Duloxetine HCl (Duloxetine Hcl 30 Mg Capsule.Dr) 30 mg PO BIDWM [facility] Last Admin: 02/03/25 08:39 Dose: 30 mg Folic Acid (Folic Acid 1 Mg Tablet) 1 mg PO DAILY [facility] Last Admin: 02/03/25 08:39 Dose: 1 mg Hydroxyzine HCl (Hydroxyzine Hcl 25 Mg Tablet) 25 mg PO Q6H PRN PRN Reason: mild anxiety Magnesium Hydroxide (Milk Of Magnesia 30 Ml Oral.Susp) 30 ml PO DAILY PRN PRN Reason: Constipation Nicotine Polacrilex (Nicotine Polacrilex 2 Mg Gum) 4 mg BUCCAL Q2H PRN PRN Reason: Nicotine Cravings Olanzapine (Olanzapine 10 Mg Tablet) 10 mg PO BID [facility] Last Admin: 02/03/25 08:39 Dose: 10 mg Propranolol HCl (Propranolol Hcl 20 Mg Tablet) 20 mg PO TID [facility]; Protocol Last Admin: 02/03/25 08:39 Dose: 20 mg Thiamine HCl (Thiamine Hcl 100 Mg Tablet) 100 mg PO DAILY [facility] Last Admin: 02/03/25 08:39 Dose: 100 mg Trazodone HCl (Trazodone Hcl 50 Mg Tablet) 50 mg PO BEDTIME MRX1 PRN PRN Reason: Insomnia Last Admin: 02/02/25 22:02 Dose: 50 mg Allergies Allergies Allergy/AdvReac Type Severity Reaction Status Date / Time gluten AdvReac Gastrointestinal Verified 01/30/25 06:48 Upset lithium AdvReac Unknown Verified 01/30/25 06:48 wheat AdvReac Gastrointestinal Verified 01/30/25 06:48 Upset Assessment & Plan Assessment & Plan (1) Bipolar disorder with psychotic features: Status: Acute Code(s): F31.9 - Bipolar disorder, unspecified (2) PTSD (post-traumatic stress disorder): Status: Acute Code(s): F43.10 - Post-traumatic stress disorder, unspecified Plan Admit, CV, 15 minute checks Collateral contact Help pt reconnect to OP resources and with her community again Medication assessement-continue current regime at this time Diagnostics as needed Encourage full milieu Discharge planning 02/01/25- Increase Valium prn to TID (dosing pt uses at home) Thiamine 100 mg daily (B12 level 196) Folic Acid 1 mg daily (Folic Acid level 3.4) 02/02 pt says she's fair... and trying to rest after dealing with distressing news dealing with this past week. Pt's valium recently increased; she's trying to use less than offered. 02/03 same presentation; continue treatment plan Patient educated on: diagnosis Informed Consent: understands Reason for continued inpatient stay Substantial Risk for: rapid decompensation Time Spent With Patient Time: Total time managing care of this patient today ____ minutes.
[2025-02-03] MEDS: Amphetamine Mixed Salts 10 MG TABLET 30 MG PO (11:28)
[2025-02-03 15:08] VITALS: BP 135/70; PULSE 75
[2025-02-03 19:41] VITALS: BP 130/77; PULSE 101; TEMP 36.4; O2SAT 98
[2025-02-03 20:01] VITALS: BP 130/77; PULSE 101
[2025-02-04] MEDS: Dextroamphetamine/Amphetamine XR 10 MG CAP.ER.24H 30 MG PO (08:44)
[2025-02-04 08:47] VITALS: BP 141/86; PULSE 110; RESP 18; TEMP 36.9; O2SAT 93
--- NOTE | 2025-02-04 09:56 | HO.PSYCHPN ---
Subjective Subjective Date of Service: 02/04/25 Reason For Visit: PTSD, Bipolar disorder with psychosis Subjective Notes: Conditional Voluntary Interim History: I am feeling better. I am anxious to hear what the children's guardian's perspective is. Reports mild improvement. States medications have helped her to feel improved Reports using Valium bid not tid and is pleased with her efforts on this. Denies SI,HI,AH,VH Medication Compliance: Yes Side effects from medications: No Attending Groups: Yes Review of Systems Acute medical concerns: No Medical Review of Systems: unchanged Review of Systems Review of Systems Denies today Mental Status Exam Mental Status Exam Patient Appearance: Appropriate Patient Orientation: Person, Place, Time and Situation Level of Consciousness: Alert Patient Behavior: Appropriate, Talkative, Cooperative and Good Eye Contact Mood Description: Depressed and Anxious Affect Description: Flat Patient Cognition Impaired: No Ability to Follow Directions: Good Speech Pattern: Spontaneous Speech Memory Description: Intact and Episodic Impaired Hallucinations: None Delusions: Not Present Thought Process: Rumination Thought Content: positive for Circumstantial, positive for Perseveration and positive for Suicidal Ideation (denies) Depressive Symptoms: Thoughts of /Suicide (denies) Judgement: Fair Diagnostics Vital Signs (24Hr): Vital Signs - 24 hr 02/03/25 15:08 02/03/25 19:41 02/03/25 20:01 Temperature 97.5 F Pulse Rate 75 101 H 101 H Respiratory Rate Blood Pressure 135/70 130/77 130/77 Pulse Oximetry 98 Oxygen Delivery Method Room Air 02/04/25 08:47 Temperature 98.4 F Pulse Rate 110 H Respiratory Rate 18 Blood Pressure 141/86 H Pulse Oximetry 93 Oxygen Delivery Method Room Air BMI result Body Mass Index 29.9 Labs 01/29/25 23:58 01/29/25 23:58 Medications Medications Current Medications Acetaminophen (Acetaminophen 325 Mg Tablet) 650 mg PO Q6H PRN PRN Reason: Headache/Pain, Scale 1-10 Last Admin: 02/03/25 20:00 Dose: 650 mg Al Hydroxide/Mg Hydroxide (Magnesium Hydrox/Alum Hydrox 30 Ml Oral.Susp) 30 ml PO Q6H PRN PRN Reason: Heartburn/Nausea Amphetamine/Dextroamphetamine (Amphetamine Mixed Salts 10 Mg Tablet) 30 mg PO DAILY@1200 [facility] Last Admin: 02/03/25 11:28 Dose: 30 mg Amphetamine/Dextroamphetamine (Dextroamphetamine/Amphetamine Xr 10 Mg Cap.Er.24h) 30 mg PO DAILY [facility] Last Admin: 02/04/25 08:44 Dose: 30 mg Diazepam (Diazepam 5 Mg Tablet) 10 mg PO TID PRN PRN Reason: severe anxiety Last Admin: 02/03/25 17:17 Dose: 10 mg Diphenhydramine HCl (Diphenhydramine Hcl 25 Mg Capsule) 25 mg PO BID PRN PRN Reason: Anxiety Last Admin: 02/03/25 20:00 Dose: 25 mg Duloxetine HCl (Duloxetine Hcl 30 Mg Capsule.Dr) 30 mg PO BIDWM [facility] Last Admin: 02/04/25 08:45 Dose: 30 mg Folic Acid (Folic Acid 1 Mg Tablet) 1 mg PO DAILY [facility] Last Admin: 02/04/25 08:45 Dose: 1 mg Hydroxyzine HCl (Hydroxyzine Hcl 25 Mg Tablet) 25 mg PO Q6H PRN PRN Reason: mild anxiety Last Admin: 02/03/25 20:00 Dose: 25 mg Magnesium Hydroxide (Milk Of Magnesia 30 Ml Oral.Susp) 30 ml PO DAILY PRN PRN Reason: Constipation Nicotine Polacrilex (Nicotine Polacrilex 2 Mg Gum) 4 mg BUCCAL Q2H PRN PRN Reason: Nicotine Cravings Olanzapine (Olanzapine 10 Mg Tablet) 10 mg PO BID [facility] Last Admin: 02/04/25 08:44 Dose: 10 mg Propranolol HCl (Propranolol Hcl 20 Mg Tablet) 20 mg PO TID [facility]; Protocol Last Admin: 02/04/25 08:45 Dose: 20 mg Thiamine HCl (Thiamine Hcl 100 Mg Tablet) 100 mg PO DAILY [facility] Last Admin: 02/04/25 08:45 Dose: 100 mg Trazodone HCl (Trazodone Hcl 50 Mg Tablet) 50 mg PO BEDTIME MRX1 PRN PRN Reason: Insomnia Last Admin: 02/02/25 22:02 Dose: 50 mg Allergies Allergies Allergy/AdvReac Type Severity Reaction Status Date / Time gluten AdvReac Gastrointestinal Verified 01/30/25 06:48 Upset lithium AdvReac Unknown Verified 01/30/25 06:48 wheat AdvReac Gastrointestinal Verified 01/30/25 06:48 Upset Assessment & Plan Assessment & Plan (1) Bipolar disorder with psychotic features: Status: Acute Code(s): F31.9 - Bipolar disorder, unspecified (2) PTSD (post-traumatic stress disorder): Status: Acute Code(s): F43.10 - Post-traumatic stress disorder, unspecified Plan Admit, CV, 15 minute checks Collateral contact Help pt reconnect to OP resources and with her community again Medication assessement-continue current regime at this time Diagnostics as needed Encourage full milieu Discharge planning 02/01/25- Increase Valium prn to TID (dosing pt uses at home) Thiamine 100 mg daily (B12 level 196) Folic Acid 1 mg daily (Folic Acid level 3.4) 02/02 pt says she's fair... and trying to rest after dealing with distressing news dealing with this past week. Pt's valium recently increased; she's trying to use less than offered. 02/03 same presentation; continue treatment plan 02/04 continue tx Reason for continued inpatient stay Substantial Risk for: rapid decompensation Time Spent With Patient Time: Total time managing care of this patient today ____ minutes.
[2025-02-04] MEDS: Amphetamine Mixed Salts 10 MG TABLET 30 MG PO (11:35)
[2025-02-04 15:17] VITALS: BP 151/90; PULSE 102
[2025-02-04 19:33] VITALS: BP 123/69; RESP 97; TEMP 36.5; O2SAT 98
[2025-02-04 20:06] VITALS: BP 123/69; PULSE 97
[2025-02-05 08:00] VITALS: BP 115/63; PULSE 72; RESP 16; TEMP 36.9; O2SAT 97
[2025-02-05] MEDS: Dextroamphetamine/Amphetamine XR 10 MG CAP.ER.24H 30 MG PO (08:45)
--- NOTE | 2025-02-05 08:56 | HO.PSYCHPN ---
Subjective Subjective Date of Service: 02/05/25 Reason For Visit: PTSD, Bipolar disorder with psychosis Subjective Notes: Conditional Voluntary Healthcare Proxy: No Guardianship: No Medical Problems Affecting Mental Status: No Interim History: Pt is anxious for response from colloid mill operator for the children to help her with her direction for treatment. She is visable in milieu, attending groups, taking meds and finding regime effective and feeling stronger but anxious. Depressive and anxious sx are still present, but not as bad as when I first arrived. Medication Compliance: Yes Side effects from medications: No Attending Groups: Yes Review of Systems Acute medical concerns: No Medical Review of Systems: unchanged Review of Systems Review of Systems Denies Mental Status Exam Mental Status Exam Patient Appearance: Appropriate Patient Orientation: Person, Place, Time and Situation Level of Consciousness: Alert Patient Behavior: Appropriate, Talkative, Cooperative and Good Eye Contact Mood Description: Depressed, Anxious and Sad Affect Description: Flat Patient Cognition Impaired: No Ability to Follow Directions: Good Speech Pattern: Spontaneous Speech Memory Description: Intact and Episodic Impaired Hallucinations: None Delusions: Not Present Perceptual Disturbances: Depersonalization and Derealization Thought Process: Rumination Thought Content: positive for Circumstantial, positive for Perseveration and positive for Suicidal Ideation (denies) Depressive Symptoms: Thoughts of /Suicide (denies) Judgement: Fair Diagnostics Vital Signs (24Hr): Vital Signs - 24 hr 02/04/25 15:17 02/04/25 19:33 02/04/25 20:06 Temperature 97.7 F Pulse Rate 102 H 97 Respiratory Rate 97 H Blood Pressure 151/90 H 123/69 123/69 Pulse Oximetry 98 Oxygen Delivery Method Room Air 02/05/25 08:00 Temperature 98.4 F Pulse Rate 72 Respiratory Rate 16 Blood Pressure 115/63 Pulse Oximetry 97 Oxygen Delivery Method Room Air BMI result Body Mass Index 29.9 Labs 01/29/25 23:58 01/29/25 23:58 Medications Medications Current Medications Acetaminophen (Acetaminophen 325 Mg Tablet) 650 mg PO Q6H PRN PRN Reason: Headache/Pain, Scale 1-10 Last Admin: 02/04/25 20:07 Dose: 650 mg Al Hydroxide/Mg Hydroxide (Magnesium Hydrox/Alum Hydrox 30 Ml Oral.Susp) 30 ml PO Q6H PRN PRN Reason: Heartburn/Nausea Amphetamine/Dextroamphetamine (Amphetamine Mixed Salts 10 Mg Tablet) 30 mg PO DAILY@1200 [facility] Last Admin: 02/04/25 11:35 Dose: 30 mg Amphetamine/Dextroamphetamine (Dextroamphetamine/Amphetamine Xr 10 Mg Cap.Er.24h) 30 mg PO DAILY [facility] Last Admin: 02/05/25 08:45 Dose: 30 mg Diazepam (Diazepam 5 Mg Tablet) 10 mg PO TID PRN PRN Reason: severe anxiety Last Admin: 02/04/25 16:34 Dose: 10 mg Diphenhydramine HCl (Diphenhydramine Hcl 25 Mg Capsule) 25 mg PO BID PRN PRN Reason: Anxiety Last Admin: 02/04/25 20:07 Dose: 25 mg Duloxetine HCl (Duloxetine Hcl 30 Mg Capsule.Dr) 30 mg PO BIDWM [facility] Last Admin: 02/05/25 08:45 Dose: 30 mg Folic Acid (Folic Acid 1 Mg Tablet) 1 mg PO DAILY [facility] Last Admin: 02/05/25 08:45 Dose: 1 mg Hydroxyzine HCl (Hydroxyzine Hcl 25 Mg Tablet) 25 mg PO Q6H PRN PRN Reason: mild anxiety Last Admin: 02/03/25 20:00 Dose: 25 mg Magnesium Hydroxide (Milk Of Magnesia 30 Ml Oral.Susp) 30 ml PO DAILY PRN PRN Reason: Constipation Nicotine Polacrilex (Nicotine Polacrilex 2 Mg Gum) 4 mg BUCCAL Q2H PRN PRN Reason: Nicotine Cravings Olanzapine (Olanzapine 10 Mg Tablet) 10 mg PO BID [facility] Last Admin: 02/05/25 08:45 Dose: 10 mg Propranolol HCl (Propranolol Hcl 20 Mg Tablet) 20 mg PO TID [facility]; Protocol Last Admin: 02/05/25 08:45 Dose: 20 mg Thiamine HCl (Thiamine Hcl 100 Mg Tablet) 100 mg PO DAILY [facility] Last Admin: 02/05/25 08:45 Dose: 100 mg Trazodone HCl (Trazodone Hcl 50 Mg Tablet) 50 mg PO BEDTIME MRX1 PRN PRN Reason: Insomnia Last Admin: 02/04/25 20:07 Dose: 50 mg Allergies Allergies Allergy/AdvReac Type Severity Reaction Status Date / Time gluten AdvReac Gastrointestinal Verified 01/30/25 06:48 Upset lithium AdvReac Unknown Verified 01/30/25 06:48 wheat AdvReac Gastrointestinal Verified 01/30/25 06:48 Upset Assessment & Plan Assessment & Plan (1) Bipolar disorder with psychotic features: Status: Acute Code(s): F31.9 - Bipolar disorder, unspecified (2) PTSD (post-traumatic stress disorder): Status: Acute Code(s): F43.10 - Post-traumatic stress disorder, unspecified Plan Admit, CV, 15 minute checks Collateral contact Help pt reconnect to OP resources and with her community again Medication assessement-continue current regime at this time Diagnostics as needed Encourage full milieu Discharge planning 02/01/25- Increase Valium prn to TID (dosing pt uses at home) Thiamine 100 mg daily (B12 level 196) Folic Acid 1 mg daily (Folic Acid level 3.4) 02/02 pt says she's fair... and trying to rest after dealing with distressing news dealing with this past week. Pt's valium recently increased; she's trying to use less than offered. 02/03 same presentation; continue treatment plan 02/04 continue tx 02/05 continue tx Reason for continued inpatient stay Substantial Risk for: rapid decompensation Time Spent With Patient Time: Total time managing care of this patient today ____ minutes.
[2025-02-05] MEDS: Amphetamine Mixed Salts 10 MG TABLET 30 MG PO (11:17)
[2025-02-05 14:15] VITALS: BP 148/89; PULSE 108
[2025-02-05 20:00] VITALS: BP 137/86; PULSE 98; TEMP 36.8; O2SAT 99
[2025-02-05 20:19] VITALS: BP 136/86; PULSE 98
[2025-02-06 08:02] VITALS: BP 123/75; PULSE 81; TEMP 36.4; O2SAT 97
[2025-02-06] MEDS: Dextroamphetamine/Amphetamine XR 10 MG CAP.ER.24H 30 MG PO (08:46)
--- NOTE | 2025-02-06 10:31 | HO.PSYCHPN ---
Subjective Subjective Date of Service: 02/06/25 Reason For Visit: PTSD, Bipolar disorder with psychosis Subjective Notes: Conditional Voluntary Healthcare Proxy: No Guardianship: No Medical Problems Affecting Mental Status: No Interim History: I want to create a plan to have my children live with me again. I feel improved here. Groups help, the staff helps, I am feeling stronger. Continues to have high anxiety, SI, feeling overwhelmed with loss of children, recent restraining order, feeling parents have been setting her up. Tearful when she talks of this. I will need help making sure I plan well for myself, I want to show my parents, the guardians and the court I am capable to care for my children. I believe I am. Wanting to be the best parent she can be. Medication Compliance: Yes Side effects from medications: No Attending Groups: Yes Review of Systems Acute medical concerns: No Review of Systems Review of Systems Denies today Mental Status Exam Mental Status Exam Patient Appearance: Appropriate Patient Orientation: Person, Place, Time and Situation Level of Consciousness: Alert Patient Behavior: Appropriate, Talkative, Cooperative, Good Eye Contact and Crying Mood Description: Depressed, Anxious and Sad Affect Description: Flat Patient Cognition Impaired: No Ability to Follow Directions: Good Speech Pattern: Spontaneous Speech Memory Description: Intact and Episodic Impaired Hallucinations: None Delusions: Not Present Perceptual Disturbances: Depersonalization and Derealization Thought Process: Rumination Thought Content: positive for Circumstantial, positive for Perseveration and positive for Suicidal Ideation (denies) Depressive Symptoms: Thoughts of /Suicide (denies) Judgement: Fair Diagnostics Vital Signs (24Hr): Vital Signs - 24 hr 02/05/25 14:15 02/05/25 20:00 02/05/25 20:19 Temperature 98.2 F Pulse Rate 108 H 98 98 Blood Pressure 148/89 H 137/86 136/86 Pulse Oximetry 99 Oxygen Delivery Method Room Air 02/06/25 08:02 Temperature 97.5 F Pulse Rate 81 Blood Pressure 123/75 Pulse Oximetry 97 Oxygen Delivery Method Room Air BMI result Body Mass Index 29.9 Labs 01/29/25 23:58 01/29/25 23:58 Medications Medications Current Medications Acetaminophen (Acetaminophen 325 Mg Tablet) 650 mg PO Q6H PRN PRN Reason: Headache/Pain, Scale 1-10 Last Admin: 02/05/25 18:03 Dose: 650 mg Al Hydroxide/Mg Hydroxide (Magnesium Hydrox/Alum Hydrox 30 Ml Oral.Susp) 30 ml PO Q6H PRN PRN Reason: Heartburn/Nausea Amphetamine/Dextroamphetamine (Amphetamine Mixed Salts 10 Mg Tablet) 30 mg PO DAILY@1200 [facility] Last Admin: 02/05/25 11:17 Dose: 30 mg Amphetamine/Dextroamphetamine (Dextroamphetamine/Amphetamine Xr 10 Mg Cap.Er.24h) 30 mg PO DAILY [facility] Last Admin: 02/06/25 08:46 Dose: 30 mg Diazepam (Diazepam 5 Mg Tablet) 10 mg PO TID PRN PRN Reason: severe anxiety Last Admin: 02/05/25 20:19 Dose: 10 mg Diphenhydramine HCl (Diphenhydramine Hcl 25 Mg Capsule) 25 mg PO BID PRN PRN Reason: Anxiety Last Admin: 02/05/25 18:03 Dose: 25 mg Duloxetine HCl (Duloxetine Hcl 30 Mg Capsule.Dr) 30 mg PO BIDWM [facility] Last Admin: 02/06/25 08:46 Dose: 30 mg Folic Acid (Folic Acid 1 Mg Tablet) 1 mg PO DAILY [facility] Last Admin: 02/06/25 08:46 Dose: 1 mg Hydroxyzine HCl (Hydroxyzine Hcl 25 Mg Tablet) 25 mg PO Q6H PRN PRN Reason: mild anxiety Last Admin: 02/05/25 18:03 Dose: 25 mg Magnesium Hydroxide (Milk Of Magnesia 30 Ml Oral.Susp) 30 ml PO DAILY PRN PRN Reason: Constipation Nicotine Polacrilex (Nicotine Polacrilex 2 Mg Gum) 4 mg BUCCAL Q2H PRN PRN Reason: Nicotine Cravings Olanzapine (Olanzapine 10 Mg Tablet) 10 mg PO BID [facility] Last Admin: 02/06/25 08:47 Dose: 10 mg Propranolol HCl (Propranolol Hcl 20 Mg Tablet) 20 mg PO TID [facility]; Protocol Last Admin: 02/06/25 08:47 Dose: 20 mg Thiamine HCl (Thiamine Hcl 100 Mg Tablet) 100 mg PO DAILY [facility] Last Admin: 02/06/25 08:47 Dose: 100 mg Trazodone HCl (Trazodone Hcl 50 Mg Tablet) 50 mg PO BEDTIME MRX1 PRN PRN Reason: Insomnia Last Admin: 02/05/25 20:19 Dose: 50 mg Allergies Allergies Allergy/AdvReac Type Severity Reaction Status Date / Time gluten AdvReac Gastrointestinal Verified 01/30/25 06:48 Upset lithium AdvReac Unknown Verified 01/30/25 06:48 wheat AdvReac Gastrointestinal Verified 01/30/25 06:48 Upset Assessment & Plan Assessment & Plan (1) Bipolar disorder with psychotic features: Status: Acute Code(s): F31.9 - Bipolar disorder, unspecified (2) PTSD (post-traumatic stress disorder): Status: Acute Code(s): F43.10 - Post-traumatic stress disorder, unspecified Plan Admit, CV, 15 minute checks Collateral contact Help pt reconnect to OP resources and with her community again Medication assessement-continue current regime at this time Diagnostics as needed Encourage full milieu Discharge planning 02/01/25- Increase Valium prn to TID (dosing pt uses at home) Thiamine 100 mg daily (B12 level 196) Folic Acid 1 mg daily (Folic Acid level 3.4) 02/02 pt says she's fair... and trying to rest after dealing with distressing news dealing with this past week. Pt's valium recently increased; she's trying to use less than offered. 02/03 same presentation; continue treatment plan 02/04 continue tx 02/05 continue tx 02/06 Waiting to hear from the children's guardian so she may customize her plan to favor having custody of her children returned. Informed Consent: understands Reason for continued inpatient stay Substantial Risk for: rapid decompensation Time Spent With Patient Time: Total time managing care of this patient today ____ minutes.
[2025-02-06] MEDS: Amphetamine Mixed Salts 10 MG TABLET 30 MG PO (11:20)
[2025-02-06 14:50] VITALS: BP 137/85; PULSE 117
[2025-02-06 20:00] VITALS: BP 99/62; PULSE 94; RESP 16; TEMP 36.4; O2SAT 96
[2025-02-06 21:24] VITALS: BP 137/65; PULSE 90
[2025-02-07 07:00] VITALS: BMI 31.3
[2025-02-07 08:00] VITALS: BP 116/68; PULSE 94; RESP 16; O2SAT 96
[2025-02-07] MEDS: Dextroamphetamine/Amphetamine XR 10 MG CAP.ER.24H 30 MG PO (09:08)
--- NOTE | 2025-02-07 11:37 | HO.PSYCHPN ---
Subjective Subjective Date of Service: 02/07/25 Reason For Visit: PTSD, Bipolar disorder with psychosis Subjective Notes: Conditional Voluntary Healthcare Proxy: No Guardianship: No Medical Problems Affecting Mental Status: No Interim History: I just need to hear the reality of the situation and learn to cope. Pt awaiting contract from yardage control operator forming for her children. Anxious, attending groups, feeling immobile. I cannot plan life without knowing if I even have a chance for the girls to return. Care discussed with yardage control operator forming Mert [phone]. She will attempt to visit pt this weekend and we will all meet together on 02/13/25 230pm. Mary Porras asks that pt be informed she will ask to file an extension for the case, ask for a hearing and asks that pt not give up on having her children return. Pt with some relief, yet remains anxious. Medication Compliance: Yes Side effects from medications: No Attending Groups: Yes Review of Systems Acute medical concerns: No Medical Review of Systems: unchanged Review of Systems Review of Systems denies Mental Status Exam Mental Status Exam Patient Appearance: Appropriate Patient Orientation: Person, Place, Time and Situation Level of Consciousness: Alert Patient Behavior: Appropriate, Talkative, Cooperative and Good Eye Contact Mood Description: Depressed, Anxious, Sad and Apprehensive Affect Description: Flat and Apprehensive Patient Cognition Impaired: No Ability to Follow Directions: Good Speech Pattern: Spontaneous Speech Memory Description: Intact and Episodic Impaired Hallucinations: None Delusions: Not Present Perceptual Disturbances: Depersonalization and Derealization Thought Process: Rumination Thought Content: positive for Circumstantial, positive for Perseveration and positive for Suicidal Ideation (denies) Depressive Symptoms: Thoughts of /Suicide (denies) Judgement: Good Diagnostics Vital Signs (24Hr): Vital Signs - 24 hr 02/06/25 14:50 02/06/25 20:00 02/06/25 21:24 Temperature 97.6 F Pulse Rate 117 H 94 90 Respiratory Rate 16 Blood Pressure 137/85 99/62 137/65 Pulse Oximetry 96 Oxygen Delivery Method Room Air 02/07/25 08:00 Temperature Pulse Rate 94 Respiratory Rate 16 Blood Pressure 116/68 Pulse Oximetry 96 Oxygen Delivery Method BMI result Body Mass Index 29.9 Labs 01/29/25 23:58 01/29/25 23:58 Medications Medications Current Medications Acetaminophen (Acetaminophen 325 Mg Tablet) 650 mg PO Q6H PRN PRN Reason: Headache/Pain, Scale 1-10 Last Admin: 02/06/25 21:25 Dose: 650 mg Al Hydroxide/Mg Hydroxide (Magnesium Hydrox/Alum Hydrox 30 Ml Oral.Susp) 30 ml PO Q6H PRN PRN Reason: Heartburn/Nausea Amphetamine/Dextroamphetamine (Amphetamine Mixed Salts 10 Mg Tablet) 30 mg PO DAILY@1200 [facility] Last Admin: 02/06/25 11:20 Dose: 30 mg Amphetamine/Dextroamphetamine (Dextroamphetamine/Amphetamine Xr 10 Mg Cap.Er.24h) 30 mg PO DAILY [facility] Last Admin: 02/07/25 09:08 Dose: 30 mg Diazepam (Diazepam 5 Mg Tablet) 10 mg PO TID PRN PRN Reason: severe anxiety Last Admin: 02/07/25 09:09 Dose: 10 mg Diphenhydramine HCl (Diphenhydramine Hcl 25 Mg Capsule) 25 mg PO BID PRN PRN Reason: Anxiety Last Admin: 02/05/25 18:03 Dose: 25 mg Duloxetine HCl (Duloxetine Hcl 30 Mg Capsule.Dr) 30 mg PO BIDWM [facility] Last Admin: 02/07/25 09:09 Dose: 30 mg Folic Acid (Folic Acid 1 Mg Tablet) 1 mg PO DAILY [facility] Last Admin: 02/07/25 09:09 Dose: 1 mg Hydroxyzine HCl (Hydroxyzine Hcl 25 Mg Tablet) 25 mg PO Q6H PRN PRN Reason: mild anxiety Last Admin: 02/05/25 18:03 Dose: 25 mg Magnesium Hydroxide (Milk Of Magnesia 30 Ml Oral.Susp) 30 ml PO DAILY PRN PRN Reason: Constipation Nicotine Polacrilex (Nicotine Polacrilex 2 Mg Gum) 4 mg BUCCAL Q2H PRN PRN Reason: Nicotine Cravings Olanzapine (Olanzapine 10 Mg Tablet) 10 mg PO BID [facility] Last Admin: 02/07/25 09:08 Dose: 10 mg Propranolol HCl (Propranolol Hcl 20 Mg Tablet) 20 mg PO TID [facility]; Protocol Last Admin: 02/07/25 09:08 Dose: 20 mg Thiamine HCl (Thiamine Hcl 100 Mg Tablet) 100 mg PO DAILY [facility] Last Admin: 02/07/25 09:08 Dose: 100 mg Trazodone HCl (Trazodone Hcl 50 Mg Tablet) 50 mg PO BEDTIME MRX1 PRN PRN Reason: Insomnia Last Admin: 02/05/25 20:19 Dose: 50 mg Allergies Allergies Allergy/AdvReac Type Severity Reaction Status Date / Time gluten AdvReac Gastrointestinal Verified 01/30/25 06:48 Upset lithium AdvReac Unknown Verified 01/30/25 06:48 wheat AdvReac Gastrointestinal Verified 01/30/25 06:48 Upset Assessment & Plan Assessment & Plan (1) Bipolar disorder with psychotic features: Status: Acute Code(s): F31.9 - Bipolar disorder, unspecified (2) PTSD (post-traumatic stress disorder): Status: Acute Code(s): F43.10 - Post-traumatic stress disorder, unspecified Plan Admit, CV, 15 minute checks Collateral contact Help pt reconnect to OP resources and with her community again Medication assessement-continue current regime at this time Diagnostics as needed Encourage full milieu Discharge planning 02/01/25- Increase Valium prn to TID (dosing pt uses at home) Thiamine 100 mg daily (B12 level 196) Folic Acid 1 mg daily (Folic Acid level 3.4) 02/02 pt says she's fair... and trying to rest after dealing with distressing news dealing with this past week. Pt's valium recently increased; she's trying to use less than offered. 02/03 same presentation; continue treatment plan 02/04 continue tx 02/05 continue tx 02/06 Waiting to hear from the children's guardian so she may customize her plan to favor having custody of her children returned. 02/07 is consultant for the children will attempt to see pt over the weekend. Meeting with fredi prasad/pt/team 02/13 230pm Reason for continued inpatient stay Substantial Risk for: rapid decompensation Time Spent With Patient Time: Total time managing care of this patient today ____ minutes.
[2025-02-07] MEDS: Amphetamine Mixed Salts 10 MG TABLET 30 MG PO (12:34)
[2025-02-07 14:07] VITALS: BP 123/74; PULSE 88
[2025-02-07 19:56] VITALS: BP 134/91; PULSE 117; RESP 18; TEMP 36.7; O2SAT 96
[2025-02-08 08:00] VITALS: BP 143/71; PULSE 78; RESP 16; O2SAT 97
[2025-02-08 09:02] VITALS: BP 134/71; PULSE 78
[2025-02-08] MEDS: Dextroamphetamine/Amphetamine XR 10 MG CAP.ER.24H 30 MG PO (09:03)
[2025-02-08] MEDS: Amphetamine Mixed Salts 10 MG TABLET 30 MG PO (11:21)
[2025-02-08 14:43] VITALS: BP 152/80; PULSE 76
--- NOTE | 2025-02-08 16:17 | HO.PSYCHPN ---
Subjective Subjective Date of Service: 02/08/25 Reason For Visit: PTSD, Bipolar disorder with psychosis Subjective Notes: Conditional Voluntary Healthcare Proxy: No Guardianship: No Medical Problems Affecting Mental Status: No Interim History: Pt working on preparing for her meeting with the children's guardian. Very anxious, I don't want to live without them . Processing these thoughts, I know I will have to get through this-even if I lose custody forever I will need to be there for them if they need me as they grow up and become adults. They mean everything to me. Medication Compliance: Yes Side effects from medications: No Attending Groups: Yes Review of Systems Acute medical concerns: No Review of Systems Review of Systems Denies Mental Status Exam Mental Status Exam Patient Appearance: Appropriate Patient Orientation: Person, Place, Time and Situation Level of Consciousness: Alert Patient Behavior: Appropriate, Talkative, Cooperative and Good Eye Contact Mood Description: Depressed, Anxious, Sad and Apprehensive Affect Description: Flat and Apprehensive Patient Cognition Impaired: No Ability to Follow Directions: Good Speech Pattern: Spontaneous Speech Memory Description: Intact and Episodic Impaired Hallucinations: None Delusions: Not Present Perceptual Disturbances: Depersonalization and Derealization Thought Process: Rumination Thought Content: positive for Circumstantial, positive for Perseveration and positive for Suicidal Ideation (denies) Depressive Symptoms: Thoughts of /Suicide (denies) Judgement: Good Diagnostics Vital Signs (24Hr): Vital Signs - 24 hr 02/07/25 19:56 02/08/25 08:00 02/08/25 09:02 Temperature 98.1 F Pulse Rate 117 H 78 78 Respiratory Rate 18 16 Blood Pressure 134/91 H 143/71 H 134/71 Pulse Oximetry 96 97 Oxygen Delivery Method Room Air 02/08/25 14:43 Temperature Pulse Rate 76 Respiratory Rate Blood Pressure 152/80 H Pulse Oximetry Oxygen Delivery Method BMI result Body Mass Index 31.3 Labs 01/29/25 23:58 01/29/25 23:58 Medications Medications Current Medications Acetaminophen (Acetaminophen 325 Mg Tablet) 650 mg PO Q6H PRN PRN Reason: Headache/Pain, Scale 1-10 Last Admin: 02/06/25 21:25 Dose: 650 mg Al Hydroxide/Mg Hydroxide (Magnesium Hydrox/Alum Hydrox 30 Ml Oral.Susp) 30 ml PO Q6H PRN PRN Reason: Heartburn/Nausea Amphetamine/Dextroamphetamine (Amphetamine Mixed Salts 10 Mg Tablet) 30 mg PO DAILY@1200 [facility] Last Admin: 02/08/25 11:21 Dose: 30 mg Amphetamine/Dextroamphetamine (Dextroamphetamine/Amphetamine Xr 10 Mg Cap.Er.24h) 30 mg PO DAILY [facility] Last Admin: 02/08/25 09:03 Dose: 30 mg Diazepam (Diazepam 5 Mg Tablet) 10 mg PO TID PRN PRN Reason: severe anxiety Last Admin: 02/08/25 12:11 Dose: 10 mg Diphenhydramine HCl (Diphenhydramine Hcl 25 Mg Capsule) 25 mg PO BID PRN PRN Reason: Anxiety Last Admin: 02/07/25 21:40 Dose: 25 mg Duloxetine HCl (Duloxetine Hcl 30 Mg Capsule.Dr) 30 mg PO BIDWM [facility] Last Admin: 02/08/25 09:02 Dose: 30 mg Folic Acid (Folic Acid 1 Mg Tablet) 1 mg PO DAILY [facility] Last Admin: 02/08/25 09:03 Dose: 1 mg Hydroxyzine HCl (Hydroxyzine Hcl 25 Mg Tablet) 25 mg PO Q6H PRN PRN Reason: mild anxiety Last Admin: 02/07/25 21:40 Dose: 25 mg Magnesium Hydroxide (Milk Of Magnesia 30 Ml Oral.Susp) 30 ml PO DAILY PRN PRN Reason: Constipation Nicotine Polacrilex (Nicotine Polacrilex 2 Mg Gum) 4 mg BUCCAL Q2H PRN PRN Reason: Nicotine Cravings Olanzapine (Olanzapine 10 Mg Tablet) 10 mg PO BID [facility] Last Admin: 02/08/25 09:02 Dose: 10 mg Propranolol HCl (Propranolol Hcl 20 Mg Tablet) 20 mg PO TID [facility]; Protocol Last Admin: 02/08/25 14:43 Dose: 20 mg Thiamine HCl (Thiamine Hcl 100 Mg Tablet) 100 mg PO DAILY [facility] Last Admin: 02/08/25 09:03 Dose: 100 mg Trazodone HCl (Trazodone Hcl 50 Mg Tablet) 50 mg PO BEDTIME MRX1 PRN PRN Reason: Insomnia Last Admin: 02/07/25 21:40 Dose: 50 mg Allergies Allergies Allergy/AdvReac Type Severity Reaction Status Date / Time gluten AdvReac Gastrointestinal Verified 01/30/25 06:48 Upset lithium AdvReac Unknown Verified 01/30/25 06:48 wheat AdvReac Gastrointestinal Verified 01/30/25 06:48 Upset Assessment & Plan Assessment & Plan (1) Bipolar disorder with psychotic features: Status: Acute Code(s): F31.9 - Bipolar disorder, unspecified (2) PTSD (post-traumatic stress disorder): Status: Acute Code(s): F43.10 - Post-traumatic stress disorder, unspecified Plan Admit, CV, 15 minute checks Collateral contact Help pt reconnect to OP resources and with her community again Medication assessement-continue current regime at this time Diagnostics as needed Encourage full milieu Discharge planning 02/01/25- Increase Valium prn to TID (dosing pt uses at home) Thiamine 100 mg daily (B12 level 196) Folic Acid 1 mg daily (Folic Acid level 3.4) 02/02 pt says she's fair... and trying to rest after dealing with distressing news dealing with this past week. Pt's valium recently increased; she's trying to use less than offered. 02/03 same presentation; continue treatment plan 02/04 continue tx 02/05 continue tx 02/06 Waiting to hear from the children's guardian so she may customize her plan to favor having custody of her children returned. 02/08 Continue regime/tx Meeting with spray drier 02/13/25. Reason for continued inpatient stay Substantial Risk for: rapid decompensation Time Spent With Patient Time: Total time managing care of this patient today ____ minutes.
[2025-02-08 20:00] VITALS: BP 124/75; PULSE 94; TEMP 36.4; O2SAT 99
[2025-02-08 20:57] VITALS: BP 124/75; PULSE 94
[2025-02-09 08:30] VITALS: BP 134/91; PULSE 97; RESP 16; TEMP 36.3; O2SAT 98
[2025-02-09] MEDS: Dextroamphetamine/Amphetamine XR 10 MG CAP.ER.24H 30 MG PO (08:41)
--- NOTE | 2025-02-09 09:42 | P.PNPSI_ITS ---
Subjective Subjective Date of Service: 02/09/25 Reason For Visit: PTSD, Bipolar disorder with psychosis Subjective Notes: Conditional Voluntary Healthcare Proxy: No Guardianship: No Medical Problems Affecting Mental Status: No Interim History: Reports med regime effective, without side effects. Apprehensive about upcoming meeting-reviewing her paperwork/forms sent by the court prior to admit. Describes being overwhelmed, which at times feels immobilizing. Utilizing prn's but I am trying to be mindful about the use. Attending groups and visable in the milieu with peers-supportive of room-mate. Medication Compliance: Yes Side effects from medications: No Attending Groups: No Review of Systems Acute medical concerns: No Medical Review of Systems: unchanged Review of Systems Review of Systems Denies today Mental Status Exam Mental Status Exam Patient Appearance: Appropriate Patient Orientation: Person, Place, Time and Situation Level of Consciousness: Alert Patient Behavior: Appropriate, Talkative, Cooperative and Good Eye Contact Mood Description: Depressed, Anxious, Sad and Apprehensive Affect Description: Flat and Apprehensive Patient Cognition Impaired: No Ability to Follow Directions: Good Speech Pattern: Spontaneous Speech Memory Description: Intact and Episodic Impaired Hallucinations: None Delusions: Not Present Perceptual Disturbances: Depersonalization and Derealization Thought Process: Rumination Thought Content: positive for Circumstantial, positive for Perseveration and positive for Suicidal Ideation (denies) Depressive Symptoms: Thoughts of /Suicide (denies) Judgement: Good Diagnostics Vital Signs (24Hr): Vital Signs - 24 hr 02/08/25 14:43 02/08/25 20:00 02/08/25 20:57 Temperature 97.6 F Pulse Rate 76 94 94 Respiratory Rate Blood Pressure 152/80 H 124/75 124/75 Pulse Oximetry 99 Oxygen Delivery Method Room Air 02/09/25 08:30 Temperature 97.4 F Pulse Rate 97 Respiratory Rate 16 Blood Pressure 134/91 H Pulse Oximetry 98 Oxygen Delivery Method Room Air BMI result Body Mass Index 31.3 Labs 01/29/25 23:58 01/29/25 23:58 Medications Medications Current Medications Acetaminophen (Acetaminophen 325 Mg Tablet) 650 mg PO Q6H PRN PRN Reason: Headache/Pain, Scale 1-10 Last Admin: 02/08/25 20:56 Dose: 650 mg Al Hydroxide/Mg Hydroxide (Magnesium Hydrox/Alum Hydrox 30 Ml Oral.Susp) 30 ml PO Q6H PRN PRN Reason: Heartburn/Nausea Amphetamine/Dextroamphetamine (Amphetamine Mixed Salts 10 Mg Tablet) 30 mg PO DAILY@1200 [facility] Last Admin: 02/08/25 11:21 Dose: 30 mg Amphetamine/Dextroamphetamine (Dextroamphetamine/Amphetamine Xr 10 Mg Cap.Er.24h) 30 mg PO DAILY [facility] Last Admin: 02/09/25 08:41 Dose: 30 mg Diazepam (Diazepam 5 Mg Tablet) 10 mg PO TID PRN PRN Reason: severe anxiety Last Admin: 02/08/25 20:54 Dose: 10 mg Diphenhydramine HCl (Diphenhydramine Hcl 25 Mg Capsule) 25 mg PO BID PRN PRN Reason: Anxiety Last Admin: 02/08/25 20:55 Dose: 25 mg Duloxetine HCl (Duloxetine Hcl 30 Mg Capsule.Dr) 30 mg PO BIDWM [facility] Last Admin: 02/09/25 08:41 Dose: 30 mg Folic Acid (Folic Acid 1 Mg Tablet) 1 mg PO DAILY [facility] Last Admin: 02/09/25 08:41 Dose: 1 mg Hydroxyzine HCl (Hydroxyzine Hcl 25 Mg Tablet) 25 mg PO Q6H PRN PRN Reason: mild anxiety Last Admin: 02/08/25 20:54 Dose: 25 mg Magnesium Hydroxide (Milk Of Magnesia 30 Ml Oral.Susp) 30 ml PO DAILY PRN PRN Reason: Constipation Nicotine Polacrilex (Nicotine Polacrilex 2 Mg Gum) 4 mg BUCCAL Q2H PRN PRN Reason: Nicotine Cravings Olanzapine (Olanzapine 10 Mg Tablet) 10 mg PO BID [facility] Last Admin: 02/09/25 08:41 Dose: 10 mg Propranolol HCl (Propranolol Hcl 20 Mg Tablet) 20 mg PO TID [facility]; Protocol Last Admin: 02/09/25 08:41 Dose: 20 mg Thiamine HCl (Thiamine Hcl 100 Mg Tablet) 100 mg PO DAILY [facility] Last Admin: 02/09/25 08:41 Dose: 100 mg Trazodone HCl (Trazodone Hcl 50 Mg Tablet) 50 mg PO BEDTIME MRX1 PRN PRN Reason: Insomnia Last Admin: 02/08/25 20:55 Dose: 50 mg Allergies Allergies Allergy/AdvReac Type Severity Reaction Status Date / Time gluten AdvReac Gastrointestinal Verified 01/30/25 06:48 Upset lithium AdvReac Unknown Verified 01/30/25 06:48 wheat AdvReac Gastrointestinal Verified 01/30/25 06:48 Upset Assessment & Plan Assessment & Plan (1) Bipolar disorder with psychotic features: Status: Acute Code(s): F31.9 - Bipolar disorder, unspecified (2) PTSD (post-traumatic stress disorder): Status: Acute Code(s): F43.10 - Post-traumatic stress disorder, unspecified Plan Admit, CV, 15 minute checks Collateral contact Help pt reconnect to OP resources and with her community again Medication assessement-continue current regime at this time Diagnostics as needed Encourage full milieu Discharge planning 02/01/25- Increase Valium prn to TID (dosing pt uses at home) Thiamine 100 mg daily (B12 level 196) Folic Acid 1 mg daily (Folic Acid level 3.4) 02/02 pt says she's fair... and trying to rest after dealing with distressing news dealing with this past week. Pt's valium recently increased; she's trying to use less than offered. 02/03 same presentation; continue treatment plan 02/04 continue tx 02/05 continue tx 02/06 Waiting to hear from the children's guardian so she may customize her plan to favor having custody of her children returned. 02/08 Continue regime/tx Meeting with soaker meat 02/13/25. 02/09 Continue tx Reason for continued inpatient stay Substantial Risk for: rapid decompensation Time Spent With Patient Time: Total time managing care of this patient today ____ minutes.
[2025-02-09] MEDS: Amphetamine Mixed Salts 10 MG TABLET 30 MG PO (11:30)
[2025-02-09 14:46] VITALS: BP 154/80; PULSE 102
[2025-02-09 19:57] VITALS: BP 128/76; PULSE 107; TEMP 36.4; O2SAT 96
[2025-02-10 08:00] VITALS: BP 131/69; PULSE 84; RESP 16; TEMP 36.3; O2SAT 97
[2025-02-10] MEDS: Dextroamphetamine/Amphetamine XR 10 MG CAP.ER.24H 30 MG PO (08:25)
[2025-02-10] MEDS: Amphetamine Mixed Salts 10 MG TABLET 30 MG PO (11:04)
[2025-02-10 15:44] VITALS: BP 140/90; PULSE 121
--- NOTE | 2025-02-10 16:48 | HO.PSYCHPN ---
Subjective Subjective Date of Service: 02/10/25 Reason For Visit: PTSD, Bipolar disorder with psychosis Subjective Notes: Conditional Voluntary Healthcare Proxy: No Guardianship: No Medical Problems Affecting Mental Status: No Interim History: Attending milieu groups and activities, visable with peers. Tearful- I am feeling overwhelmed So much to address and explain Attempted to assist pt in restructure of her approach to meeting 02/13-address questions, ask for time to prepare responses for questions that are more complex and give a clear statement of intent of wanting her children to return home. I can do that Medication Compliance: Yes Side effects from medications: No Attending Groups: Yes Review of Systems Acute medical concerns: No Review of Systems Review of Systems No, just anxious about Tuesday. Mental Status Exam Mental Status Exam Patient Appearance: Appropriate Patient Orientation: Person, Place, Time and Situation Level of Consciousness: Alert Patient Behavior: Appropriate, Talkative, Cooperative and Good Eye Contact Mood Description: Depressed, Anxious, Sad and Apprehensive Affect Description: Flat and Apprehensive Patient Cognition Impaired: No Ability to Follow Directions: Good Speech Pattern: Spontaneous Speech Memory Description: Intact and Episodic Impaired Hallucinations: None Delusions: Not Present Perceptual Disturbances: Depersonalization and Derealization Thought Process: Rumination Thought Content: positive for Circumstantial, positive for Perseveration and positive for Suicidal Ideation (denies) Depressive Symptoms: Thoughts of /Suicide (denies) Judgement: Good Diagnostics Vital Signs (24Hr): Vital Signs - 24 hr 02/09/25 19:57 02/10/25 08:00 02/10/25 15:44 Temperature 97.6 F 97.4 F Pulse Rate 107 H 84 121 H Respiratory Rate 16 Blood Pressure 128/76 131/69 140/90 H Pulse Oximetry 96 97 Oxygen Delivery Method Room Air Room Air BMI result Body Mass Index 31.3 Labs 01/29/25 23:58 01/29/25 23:58 Medications Medications Current Medications Acetaminophen (Acetaminophen 325 Mg Tablet) 650 mg PO Q6H PRN PRN Reason: Headache/Pain, Scale 1-10 Last Admin: 02/10/25 08:25 Dose: 650 mg Al Hydroxide/Mg Hydroxide (Magnesium Hydrox/Alum Hydrox 30 Ml Oral.Susp) 30 ml PO Q6H PRN PRN Reason: Heartburn/Nausea Amphetamine/Dextroamphetamine (Amphetamine Mixed Salts 10 Mg Tablet) 30 mg PO DAILY@1200 [facility] Last Admin: 02/10/25 11:04 Dose: 30 mg Amphetamine/Dextroamphetamine (Dextroamphetamine/Amphetamine Xr 10 Mg Cap.Er.24h) 30 mg PO DAILY [facility] Last Admin: 02/10/25 08:25 Dose: 30 mg Diazepam (Diazepam 5 Mg Tablet) 10 mg PO TID PRN PRN Reason: severe anxiety Last Admin: 02/09/25 20:25 Dose: 10 mg Diphenhydramine HCl (Diphenhydramine Hcl 25 Mg Capsule) 25 mg PO BID PRN PRN Reason: Anxiety Last Admin: 02/08/25 20:55 Dose: 25 mg Duloxetine HCl (Duloxetine Hcl 30 Mg Capsule.Dr) 30 mg PO BIDWM [facility] Last Admin: 02/10/25 08:25 Dose: 30 mg Folic Acid (Folic Acid 1 Mg Tablet) 1 mg PO DAILY [facility] Last Admin: 02/10/25 08:25 Dose: 1 mg Hydroxyzine HCl (Hydroxyzine Hcl 25 Mg Tablet) 25 mg PO Q6H PRN PRN Reason: mild anxiety Last Admin: 02/09/25 20:24 Dose: 25 mg Magnesium Hydroxide (Milk Of Magnesia 30 Ml Oral.Susp) 30 ml PO DAILY PRN PRN Reason: Constipation Nicotine Polacrilex (Nicotine Polacrilex 2 Mg Gum) 4 mg BUCCAL Q2H PRN PRN Reason: Nicotine Cravings Olanzapine (Olanzapine 10 Mg Tablet) 10 mg PO BID [facility] Last Admin: 02/10/25 08:25 Dose: 10 mg Propranolol HCl (Propranolol Hcl 20 Mg Tablet) 20 mg PO TID [facility]; Protocol Last Admin: 02/10/25 15:44 Dose: 20 mg Thiamine HCl (Thiamine Hcl 100 Mg Tablet) 100 mg PO DAILY [facility] Last Admin: 02/10/25 08:25 Dose: 100 mg Trazodone HCl (Trazodone Hcl 50 Mg Tablet) 50 mg PO BEDTIME MRX1 PRN PRN Reason: Insomnia Last Admin: 02/09/25 20:25 Dose: 50 mg Allergies Allergies Allergy/AdvReac Type Severity Reaction Status Date / Time gluten AdvReac Gastrointestinal Verified 01/30/25 06:48 Upset lithium AdvReac Unknown Verified 01/30/25 06:48 wheat AdvReac Gastrointestinal Verified 01/30/25 06:48 Upset Assessment & Plan Assessment & Plan (1) Bipolar disorder with psychotic features: Status: Acute Code(s): F31.9 - Bipolar disorder, unspecified (2) PTSD (post-traumatic stress disorder): Status: Acute Code(s): F43.10 - Post-traumatic stress disorder, unspecified Plan Admit, CV, 15 minute checks Collateral contact Help pt reconnect to OP resources and with her community again Medication assessement-continue current regime at this time Diagnostics as needed Encourage full milieu Discharge planning 02/01/25- Increase Valium prn to TID (dosing pt uses at home) Thiamine 100 mg daily (B12 level 196) Folic Acid 1 mg daily (Folic Acid level 3.4) 02/02 pt says she's fair... and trying to rest after dealing with distressing news dealing with this past week. Pt's valium recently increased; she's trying to use less than offered. 02/03 same presentation; continue treatment plan 02/04 continue tx 02/05 continue tx 02/06 Waiting to hear from the children's guardian so she may customize her plan to favor having custody of her children returned. 02/08 Continue regime/tx Meeting with first leveler 02/13/25. 02/10: Continue tx Reason for continued inpatient stay Substantial Risk for: rapid decompensation Time Spent With Patient Time: Total time managing care of this patient today ____ minutes.
[2025-02-10 20:00] VITALS: BP 132/79; PULSE 100; RESP 16; TEMP 36.7; O2SAT 96
[2025-02-10 20:01] VITALS: BP 132/79; PULSE 100
[2025-02-11 07:54] VITALS: BP 126/87; PULSE 107; RESP 18; TEMP 36.4; O2SAT 96
[2025-02-11] MEDS: Dextroamphetamine/Amphetamine XR 10 MG CAP.ER.24H 30 MG PO (08:11)
[2025-02-11] MEDS: Amphetamine Mixed Salts 10 MG TABLET 30 MG PO (11:03)
--- NOTE | 2025-02-11 12:08 | HO.PSYCHPN ---
Subjective Subjective Date of Service: 02/11/25 Reason For Visit: PTSD, Bipolar disorder with psychosis Subjective Notes: Conditional Voluntary Healthcare Proxy: No Guardianship: No Medical Problems Affecting Mental Status: No Interim History: Continues to report feeling overwhelmed, which she relates to feeling less organized when overwhelmed, but I am trying . Engaged in milieu, in groups and working on her presentation for 02/13 meeting. No sx of lability or psychosis-as a result no med changes-allowing time for base doses to re-titrate and take effect. Pt does not feel a med increase at this time will help her improve mgt of overwhelmed feelings and organization. Medication Compliance: Yes Side effects from medications: No Attending Groups: Yes Review of Systems Acute medical concerns: No Medical Review of Systems: unchanged Review of Systems Review of Systems Denies Mental Status Exam Mental Status Exam Patient Appearance: Appropriate Patient Orientation: Person, Place, Time and Situation Level of Consciousness: Alert Patient Behavior: Appropriate, Talkative, Cooperative and Good Eye Contact Mood Description: Depressed, Anxious, Sad and Apprehensive Affect Description: Flat and Apprehensive Patient Cognition Impaired: No Ability to Follow Directions: Good Speech Pattern: Spontaneous Speech Memory Description: Intact and Episodic Impaired Hallucinations: None Delusions: Not Present Perceptual Disturbances: Depersonalization and Derealization Thought Process: Rumination Thought Content: positive for Circumstantial, positive for Perseveration and positive for Suicidal Ideation (denies) Depressive Symptoms: Thoughts of /Suicide (denies) Judgement: Good Diagnostics Vital Signs (24Hr): Vital Signs - 24 hr 02/10/25 15:44 02/10/25 20:00 02/10/25 20:01 Temperature 98.0 F Pulse Rate 121 H 100 100 Respiratory Rate 16 Blood Pressure 140/90 H 132/79 132/79 Pulse Oximetry 96 Oxygen Delivery Method Room Air 02/11/25 07:54 Temperature 97.5 F Pulse Rate 107 H Respiratory Rate 18 Blood Pressure 126/87 Pulse Oximetry 96 Oxygen Delivery Method Room Air BMI result Body Mass Index 31.3 Labs 01/29/25 23:58 01/29/25 23:58 Medications Medications Current Medications Acetaminophen (Acetaminophen 325 Mg Tablet) 650 mg PO Q6H PRN PRN Reason: Headache/Pain, Scale 1-10 Last Admin: 02/10/25 20:02 Dose: 650 mg Al Hydroxide/Mg Hydroxide (Magnesium Hydrox/Alum Hydrox 30 Ml Oral.Susp) 30 ml PO Q6H PRN PRN Reason: Heartburn/Nausea Amphetamine/Dextroamphetamine (Amphetamine Mixed Salts 10 Mg Tablet) 30 mg PO DAILY@1200 [facility] Last Admin: 02/11/25 11:03 Dose: 30 mg Amphetamine/Dextroamphetamine (Dextroamphetamine/Amphetamine Xr 10 Mg Cap.Er.24h) 30 mg PO DAILY [facility] Last Admin: 02/11/25 08:11 Dose: 30 mg Diazepam (Diazepam 5 Mg Tablet) 10 mg PO TID PRN PRN Reason: severe anxiety Last Admin: 02/10/25 20:58 Dose: 10 mg Diphenhydramine HCl (Diphenhydramine Hcl 25 Mg Capsule) 25 mg PO BID PRN PRN Reason: Anxiety Last Admin: 02/08/25 20:55 Dose: 25 mg Duloxetine HCl (Duloxetine Hcl 30 Mg Capsule.Dr) 30 mg PO BIDWM [facility] Last Admin: 02/11/25 08:10 Dose: 30 mg Folic Acid (Folic Acid 1 Mg Tablet) 1 mg PO DAILY [facility] Last Admin: 02/11/25 08:10 Dose: 1 mg Hydroxyzine HCl (Hydroxyzine Hcl 25 Mg Tablet) 25 mg PO Q6H PRN PRN Reason: mild anxiety Last Admin: 02/09/25 20:24 Dose: 25 mg Magnesium Hydroxide (Milk Of Magnesia 30 Ml Oral.Susp) 30 ml PO DAILY PRN PRN Reason: Constipation Nicotine Polacrilex (Nicotine Polacrilex 2 Mg Gum) 4 mg BUCCAL Q2H PRN PRN Reason: Nicotine Cravings Olanzapine (Olanzapine 10 Mg Tablet) 10 mg PO BID [facility] Last Admin: 02/11/25 08:10 Dose: 10 mg Propranolol HCl (Propranolol Hcl 20 Mg Tablet) 20 mg PO TID [facility]; Protocol Last Admin: 02/11/25 08:10 Dose: 20 mg Thiamine HCl (Thiamine Hcl 100 Mg Tablet) 100 mg PO DAILY [facility] Last Admin: 02/11/25 08:11 Dose: 100 mg Trazodone HCl (Trazodone Hcl 50 Mg Tablet) 50 mg PO BEDTIME MRX1 PRN PRN Reason: Insomnia Last Admin: 02/10/25 20:02 Dose: 50 mg Allergies Allergies Allergy/AdvReac Type Severity Reaction Status Date / Time gluten AdvReac Gastrointestinal Verified 01/30/25 06:48 Upset lithium AdvReac Unknown Verified 01/30/25 06:48 wheat AdvReac Gastrointestinal Verified 01/30/25 06:48 Upset Assessment & Plan Assessment & Plan (1) Bipolar disorder with psychotic features: Status: Acute Code(s): F31.9 - Bipolar disorder, unspecified (2) PTSD (post-traumatic stress disorder): Status: Acute Code(s): F43.10 - Post-traumatic stress disorder, unspecified Plan Admit, CV, 15 minute checks Collateral contact Help pt reconnect to OP resources and with her community again Medication assessement-continue current regime at this time Diagnostics as needed Encourage full milieu Discharge planning 02/01/25- Increase Valium prn to TID (dosing pt uses at home) Thiamine 100 mg daily (B12 level 196) Folic Acid 1 mg daily (Folic Acid level 3.4) 02/02 pt says she's fair... and trying to rest after dealing with distressing news dealing with this past week. Pt's valium recently increased; she's trying to use less than offered. 02/03 same presentation; continue treatment plan 02/04 continue tx 02/05 continue tx 02/06 Waiting to hear from the children's guardian so she may customize her plan to favor having custody of her children returned. 02/08 Continue regime/tx Meeting with supervisor billposting 02/13/25. 02/11 Continue tx Reason for continued inpatient stay Substantial Risk for: rapid decompensation Time Spent With Patient Time: Total time managing care of this patient today ____ minutes.
[2025-02-11 15:59] VITALS: BP 135/91; PULSE 104; RESP 16; O2SAT 97
[2025-02-11 20:00] VITALS: BP 139/84; PULSE 100; RESP 16; TEMP 36.9; O2SAT 97
[2025-02-11 20:35] VITALS: BP 139/84; PULSE 100
[2025-02-12 07:54] VITALS: BP 134/84; PULSE 110; RESP 18; TEMP 36.1; O2SAT 98
[2025-02-12] MEDS: Dextroamphetamine/Amphetamine XR 10 MG CAP.ER.24H 30 MG PO (08:23)
--- NOTE | 2025-02-12 10:03 | HO.PSYCHPN ---
Subjective Subjective Date of Service: 02/12/25 Reason For Visit: PTSD, Bipolar disorder with psychosis Subjective Notes: Conditional Voluntary Healthcare Proxy: No Guardianship: No Medical Problems Affecting Mental Status: No Interim History: Discussed with pt subjects that may be addressed in meeting with writing manager on 02/13. Reviewed accusations from parents and ex - pt has documentation in her paperwork to prove her statements and states she believes she can offer reasonable explanations regarding accusations. Discussed possibly being asked questions about having bipolar disorder and she discussed feeling prepared. Medication Compliance: Yes Side effects from medications: No Attending Groups: Yes Review of Systems Acute medical concerns: No Medical Review of Systems: unchanged Review of Systems Review of Systems Denies Mental Status Exam Mental Status Exam Patient Appearance: Appropriate Patient Orientation: Person, Place, Time and Situation Level of Consciousness: Alert Patient Behavior: Appropriate, Talkative, Cooperative and Good Eye Contact Mood Description: Depressed, Anxious, Sad and Apprehensive Affect Description: Flat and Apprehensive Patient Cognition Impaired: No Ability to Follow Directions: Good Speech Pattern: Spontaneous Speech Memory Description: Intact and Episodic Impaired Hallucinations: None Delusions: Not Present Perceptual Disturbances: Depersonalization and Derealization Thought Process: Rumination Thought Content: positive for Circumstantial, positive for Perseveration and positive for Suicidal Ideation (denies) Depressive Symptoms: Thoughts of /Suicide (denies) Judgement: Good Diagnostics Vital Signs (24Hr): Vital Signs - 24 hr 02/11/25 15:59 02/11/25 20:00 02/11/25 20:35 Temperature 98.4 F Pulse Rate 104 H 100 100 Respiratory Rate 16 16 Blood Pressure 135/91 H 139/84 139/84 Pulse Oximetry 97 97 Oxygen Delivery Method Room Air Room Air 02/12/25 07:54 Temperature 97 F Pulse Rate 110 H Respiratory Rate 18 Blood Pressure 134/84 Pulse Oximetry 98 Oxygen Delivery Method Room Air BMI result Body Mass Index 31.3 Labs 01/29/25 23:58 01/29/25 23:58 Medications Medications Current Medications Acetaminophen (Acetaminophen 325 Mg Tablet) 650 mg PO Q6H PRN PRN Reason: Headache/Pain, Scale 1-10 Last Admin: 02/10/25 20:02 Dose: 650 mg Al Hydroxide/Mg Hydroxide (Magnesium Hydrox/Alum Hydrox 30 Ml Oral.Susp) 30 ml PO Q6H PRN PRN Reason: Heartburn/Nausea Amphetamine/Dextroamphetamine (Amphetamine Mixed Salts 10 Mg Tablet) 30 mg PO DAILY@1200 [facility] Last Admin: 02/11/25 11:03 Dose: 30 mg Amphetamine/Dextroamphetamine (Dextroamphetamine/Amphetamine Xr 10 Mg Cap.Er.24h) 30 mg PO DAILY [facility] Last Admin: 02/12/25 08:23 Dose: 30 mg Diazepam (Diazepam 5 Mg Tablet) 10 mg PO TID PRN PRN Reason: severe anxiety Last Admin: 02/11/25 20:34 Dose: 10 mg Diphenhydramine HCl (Diphenhydramine Hcl 25 Mg Capsule) 25 mg PO BID PRN PRN Reason: Anxiety Last Admin: 02/08/25 20:55 Dose: 25 mg Duloxetine HCl (Duloxetine Hcl 30 Mg Capsule.Dr) 30 mg PO BIDWM [facility] Last Admin: 02/12/25 08:23 Dose: 30 mg Folic Acid (Folic Acid 1 Mg Tablet) 1 mg PO DAILY [facility] Last Admin: 02/12/25 08:23 Dose: 1 mg Hydroxyzine HCl (Hydroxyzine Hcl 25 Mg Tablet) 25 mg PO Q6H PRN PRN Reason: mild anxiety Last Admin: 02/11/25 20:35 Dose: 25 mg Magnesium Hydroxide (Milk Of Magnesia 30 Ml Oral.Susp) 30 ml PO DAILY PRN PRN Reason: Constipation Nicotine Polacrilex (Nicotine Polacrilex 2 Mg Gum) 4 mg BUCCAL Q2H PRN PRN Reason: Nicotine Cravings Olanzapine (Olanzapine 10 Mg Tablet) 10 mg PO BID [facility] Last Admin: 02/12/25 08:23 Dose: 10 mg Propranolol HCl (Propranolol Hcl 20 Mg Tablet) 20 mg PO TID [facility]; Protocol Last Admin: 02/12/25 08:23 Dose: 20 mg Thiamine HCl (Thiamine Hcl 100 Mg Tablet) 100 mg PO DAILY [facility] Last Admin: 02/12/25 08:23 Dose: 100 mg Trazodone HCl (Trazodone Hcl 50 Mg Tablet) 50 mg PO BEDTIME MRX1 PRN PRN Reason: Insomnia Last Admin: 02/11/25 20:36 Dose: 50 mg Allergies Allergies Allergy/AdvReac Type Severity Reaction Status Date / Time gluten AdvReac Gastrointestinal Verified 01/30/25 06:48 Upset lithium AdvReac Unknown Verified 01/30/25 06:48 wheat AdvReac Gastrointestinal Verified 01/30/25 06:48 Upset Assessment & Plan Assessment & Plan (1) Bipolar disorder with psychotic features: Status: Acute Code(s): F31.9 - Bipolar disorder, unspecified (2) PTSD (post-traumatic stress disorder): Status: Acute Code(s): F43.10 - Post-traumatic stress disorder, unspecified Plan Admit, CV, 15 minute checks Collateral contact Help pt reconnect to OP resources and with her community again Medication assessement-continue current regime at this time Diagnostics as needed Encourage full milieu Discharge planning 02/01/25- Increase Valium prn to TID (dosing pt uses at home) Thiamine 100 mg daily (B12 level 196) Folic Acid 1 mg daily (Folic Acid level 3.4) 02/02 pt says she's fair... and trying to rest after dealing with distressing news dealing with this past week. Pt's valium recently increased; she's trying to use less than offered. 02/03 same presentation; continue treatment plan 02/04 continue tx 02/05 continue tx 02/06 Waiting to hear from the children's guardian so she may customize her plan to favor having custody of her children returned. 02/08 Continue regime/tx Meeting with writing manager 02/13/25. 02/12 Continue tx Reason for continued inpatient stay Substantial Risk for: rapid decompensation Time Spent With Patient Time: Total time managing care of this patient today ____ minutes.
[2025-02-12] MEDS: Amphetamine Mixed Salts 10 MG TABLET 30 MG PO (11:13)
[2025-02-12 16:41] VITALS: BP 126/94; PULSE 120
[2025-02-12 19:55] VITALS: BP 139/87; PULSE 102; TEMP 36.7; O2SAT 98
[2025-02-13 08:00] VITALS: BP 143/77; PULSE 103; TEMP 36.8; O2SAT 94
[2025-02-13] MEDS: Dextroamphetamine/Amphetamine XR 10 MG CAP.ER.24H 30 MG PO (08:27)
--- NOTE | 2025-02-13 10:18 | P.PNPSI_ITS ---
Subjective Subjective Date of Service: 02/13/25 Reason For Visit: PTSD, Bipolar disorder with psychosis Subjective Notes: Conditional Voluntary Healthcare Proxy: No Guardianship: No Medical Problems Affecting Mental Status: No Interim History: brain wave technician did not attend meeting today due to illness which was explained to pt. She is attending groups, anxious for this meeting, and focusing on her explanations for the refining engineer and prepared to hear what interventions she needs to participate in to regain custody of her children. Medication Compliance: Yes Side effects from medications: No Attending Groups: Yes Review of Systems Acute medical concerns: No Review of Systems Review of Systems Denies Mental Status Exam Mental Status Exam Patient Appearance: Appropriate Patient Orientation: Person, Place, Time and Situation Level of Consciousness: Alert Patient Behavior: Appropriate, Talkative, Cooperative and Good Eye Contact Mood Description: Depressed, Anxious, Sad and Apprehensive Affect Description: Flat and Apprehensive Patient Cognition Impaired: No Ability to Follow Directions: Good Speech Pattern: Spontaneous Speech Memory Description: Intact and Episodic Impaired Hallucinations: None Delusions: Not Present Perceptual Disturbances: Depersonalization and Derealization Thought Process: Rumination Thought Content: positive for Circumstantial, positive for Perseveration and positive for Suicidal Ideation (denies) Depressive Symptoms: Thoughts of /Suicide (denies) Judgement: Good Diagnostics Vital Signs (24Hr): Vital Signs - 24 hr 02/12/25 16:41 02/12/25 19:55 02/13/25 08:00 Temperature 98.0 F 98.2 F Pulse Rate 120 H 102 H 103 H Blood Pressure 126/94 H 139/87 143/77 H Pulse Oximetry 98 94 Oxygen Delivery Method Room Air Room Air BMI result Body Mass Index 31.3 Labs 01/29/25 23:58 01/29/25 23:58 Medications Medications Current Medications Acetaminophen (Acetaminophen 325 Mg Tablet) 650 mg PO Q6H PRN PRN Reason: Headache/Pain, Scale 1-10 Last Admin: 02/12/25 20:27 Dose: 650 mg Al Hydroxide/Mg Hydroxide (Magnesium Hydrox/Alum Hydrox 30 Ml Oral.Susp) 30 ml PO Q6H PRN PRN Reason: Heartburn/Nausea Amphetamine/Dextroamphetamine (Amphetamine Mixed Salts 10 Mg Tablet) 30 mg PO DAILY@1200 [facility] Last Admin: 02/12/25 11:13 Dose: 30 mg Amphetamine/Dextroamphetamine (Dextroamphetamine/Amphetamine Xr 10 Mg Cap.Er.24h) 30 mg PO DAILY [facility] Last Admin: 02/13/25 08:27 Dose: 30 mg Diazepam (Diazepam 5 Mg Tablet) 10 mg PO TID PRN PRN Reason: severe anxiety Last Admin: 02/12/25 20:24 Dose: 10 mg Diphenhydramine HCl (Diphenhydramine Hcl 25 Mg Capsule) 25 mg PO BID PRN PRN Reason: Anxiety Last Admin: 02/08/25 20:55 Dose: 25 mg Duloxetine HCl (Duloxetine Hcl 30 Mg Capsule.Dr) 30 mg PO BIDWM [facility] Last Admin: 02/13/25 08:27 Dose: 30 mg Folic Acid (Folic Acid 1 Mg Tablet) 1 mg PO DAILY [facility] Last Admin: 02/13/25 08:27 Dose: 1 mg Hydroxyzine HCl (Hydroxyzine Hcl 25 Mg Tablet) 25 mg PO Q6H PRN PRN Reason: mild anxiety Last Admin: 02/12/25 20:23 Dose: 25 mg Magnesium Hydroxide (Milk Of Magnesia 30 Ml Oral.Susp) 30 ml PO DAILY PRN PRN Reason: Constipation Nicotine Polacrilex (Nicotine Polacrilex 2 Mg Gum) 4 mg BUCCAL Q2H PRN PRN Reason: Nicotine Cravings Olanzapine (Olanzapine 10 Mg Tablet) 10 mg PO BID [facility] Last Admin: 02/13/25 08:27 Dose: 10 mg Propranolol HCl (Propranolol Hcl 20 Mg Tablet) 20 mg PO TID [facility]; Protocol Last Admin: 02/13/25 08:27 Dose: 20 mg Thiamine HCl (Thiamine Hcl 100 Mg Tablet) 100 mg PO DAILY [facility] Last Admin: 02/13/25 08:27 Dose: 100 mg Trazodone HCl (Trazodone Hcl 50 Mg Tablet) 50 mg PO BEDTIME MRX1 PRN PRN Reason: Insomnia Last Admin: 02/12/25 20:27 Dose: 50 mg Allergies Allergies Allergy/AdvReac Type Severity Reaction Status Date / Time gluten AdvReac Gastrointestinal Verified 01/30/25 06:48 Upset lithium AdvReac Unknown Verified 01/30/25 06:48 wheat AdvReac Gastrointestinal Verified 01/30/25 06:48 Upset Assessment & Plan Assessment & Plan (1) Bipolar disorder with psychotic features: Status: Acute Code(s): F31.9 - Bipolar disorder, unspecified (2) PTSD (post-traumatic stress disorder): Status: Acute Code(s): F43.10 - Post-traumatic stress disorder, unspecified Plan Admit, CV, 15 minute checks Collateral contact Help pt reconnect to OP resources and with her community again Medication assessement-continue current regime at this time Diagnostics as needed Encourage full milieu Discharge planning 02/01/25- Increase Valium prn to TID (dosing pt uses at home) Thiamine 100 mg daily (B12 level 196) Folic Acid 1 mg daily (Folic Acid level 3.4) 02/02 pt says she's fair... and trying to rest after dealing with distressing news dealing with this past week. Pt's valium recently increased; she's trying to use less than offered. 02/03 same presentation; continue treatment plan 02/04 continue tx 02/05 continue tx 02/06 Waiting to hear from the children's guardian so she may customize her plan to favor having custody of her children returned. 02/08 Continue regime/tx Meeting with refining engineer 02/13/25. 02/11 Continue tx 02/13 Continue tx Reason for continued inpatient stay Substantial Risk for: rapid decompensation Time Spent With Patient Time: Total time managing care of this patient today ____ minutes.
[2025-02-13] MEDS: Amphetamine Mixed Salts 10 MG TABLET 30 MG PO (11:04)
[2025-02-13 15:40] VITALS: BP 137/92
[2025-02-13 19:51] VITALS: BP 133/72; PULSE 96; RESP 103; O2SAT 97
[2025-02-14 07:00] VITALS: BMI 31.9
[2025-02-14 08:00] VITALS: BP 131/63; PULSE 95; RESP 18; TEMP 36.2; O2SAT 97
[2025-02-14] MEDS: Dextroamphetamine/Amphetamine XR 10 MG CAP.ER.24H 30 MG PO (08:16)
--- NOTE | 2025-02-14 09:45 | HO.PSYCHPN ---
Subjective Subjective Date of Service: 02/14/25 Reason For Visit: PTSD, Bipolar disorder with psychosis Subjective Notes: Conditional Voluntary Interim History: Patient reports moderate anxiety and depression related to custody patel with the their 2 daughters. She notes the her mood has progressively improved during this admission. She feels safe in this environment. She denies SI/HI/AH/VH. Medication Compliance: Yes Side effects from medications: No Attending Groups: Intermittent Review of Systems Acute medical concerns: No Mental Status Exam Mental Status Exam Narrative: Appearance: Casually dressed, adequate hygiene Behavior: Calm and cooperative throughout the interview. Eye contact is appropriate, and there are no signs of psychomotor agitation or retardation Speech: Normal volume and prosody Thought process logical and goal-directed Thought content: Future oriented no self-harming thoughts Mood: Calm Affect: Constricted SI:denies HI:denies VH/AH:none Delusions: None Insight/judgment: Fair insight and judgment Memory/cog: Alert, oriented x 4. grossly intact to conversational testing Diagnostics Vital Signs (24Hr): Vital Signs - 24 hr 02/13/25 15:40 02/13/25 19:51 02/14/25 08:00 Temperature 97.2 F Pulse Rate 96 95 Respiratory Rate 103 H 18 Blood Pressure 137/92 H 133/72 131/63 Pulse Oximetry 97 97 Oxygen Delivery Method Room Air Room Air BMI result Body Mass Index 31.3 Labs 01/29/25 23:58 01/29/25 23:58 Medications Medications Current Medications Acetaminophen (Acetaminophen 325 Mg Tablet) 650 mg PO Q6H PRN PRN Reason: Headache/Pain, Scale 1-10 Last Admin: 02/13/25 17:28 Dose: 650 mg Al Hydroxide/Mg Hydroxide (Magnesium Hydrox/Alum Hydrox 30 Ml Oral.Susp) 30 ml PO Q6H PRN PRN Reason: Heartburn/Nausea Amphetamine/Dextroamphetamine (Amphetamine Mixed Salts 10 Mg Tablet) 30 mg PO DAILY@1200 [facility] Last Admin: 02/13/25 11:04 Dose: 30 mg Amphetamine/Dextroamphetamine (Dextroamphetamine/Amphetamine Xr 10 Mg Cap.Er.24h) 30 mg PO DAILY [facility] Last Admin: 02/14/25 08:16 Dose: 30 mg Diazepam (Diazepam 5 Mg Tablet) 10 mg PO TID PRN PRN Reason: severe anxiety Last Admin: 02/13/25 21:40 Dose: 10 mg Diphenhydramine HCl (Diphenhydramine Hcl 25 Mg Capsule) 25 mg PO BID PRN PRN Reason: Anxiety Last Admin: 02/13/25 17:28 Dose: 25 mg Duloxetine HCl (Duloxetine Hcl 30 Mg Capsule.Dr) 30 mg PO BIDWM [facility] Last Admin: 02/14/25 08:16 Dose: 30 mg Folic Acid (Folic Acid 1 Mg Tablet) 1 mg PO DAILY [facility] Last Admin: 02/14/25 08:17 Dose: 1 mg Hydroxyzine HCl (Hydroxyzine Hcl 25 Mg Tablet) 25 mg PO Q6H PRN PRN Reason: mild anxiety Last Admin: 02/13/25 17:28 Dose: 25 mg Magnesium Hydroxide (Milk Of Magnesia 30 Ml Oral.Susp) 30 ml PO DAILY PRN PRN Reason: Constipation Nicotine Polacrilex (Nicotine Polacrilex 2 Mg Gum) 4 mg BUCCAL Q2H PRN PRN Reason: Nicotine Cravings Olanzapine (Olanzapine 10 Mg Tablet) 10 mg PO BID [facility] Last Admin: 02/14/25 08:17 Dose: 10 mg Propranolol HCl (Propranolol Hcl 20 Mg Tablet) 20 mg PO TID [facility]; Protocol Last Admin: 02/14/25 08:17 Dose: 20 mg Thiamine HCl (Thiamine Hcl 100 Mg Tablet) 100 mg PO DAILY [facility] Last Admin: 02/14/25 08:17 Dose: 100 mg Trazodone HCl (Trazodone Hcl 50 Mg Tablet) 50 mg PO BEDTIME MRX1 PRN PRN Reason: Insomnia Last Admin: 02/12/25 20:27 Dose: 50 mg Allergies Allergies Allergy/AdvReac Type Severity Reaction Status Date / Time gluten AdvReac Gastrointestinal Verified 01/30/25 06:48 Upset lithium AdvReac Unknown Verified 01/30/25 06:48 wheat AdvReac Gastrointestinal Verified 01/30/25 06:48 Upset Assessment & Plan Assessment & Plan (1) Bipolar disorder with psychotic features: Status: Acute Code(s): F31.9 - Bipolar disorder, unspecified (2) PTSD (post-traumatic stress disorder): Status: Acute Code(s): F43.10 - Post-traumatic stress disorder, unspecified Plan Admit, CV, 15 minute checks Collateral contact Help pt reconnect to OP resources and with her community again Medication assessement-continue current regime at this time Diagnostics as needed Encourage full milieu Discharge planning 02/01/25- Increase Valium prn to TID (dosing pt uses at home) Thiamine 100 mg daily (B12 level 196) Folic Acid 1 mg daily (Folic Acid level 3.4) 02/02 pt says she's fair... and trying to rest after dealing with distressing news dealing with this past week. Pt's valium recently increased; she's trying to use less than offered. 02/03 same presentation; continue treatment plan 02/04 continue tx 02/05 continue tx 02/06 Waiting to hear from the children's guardian so she may customize her plan to favor having custody of her children returned. 02/08 Continue regime/tx Meeting with tare weigher 02/13/25. 02/11 Continue tx 02/13 Continue tx 02/14: Moderate anxiety and depression related to custody patel with the their 2 daughters. Mood continues to improve. No SI/HI/AH/VH. Continue current treatment regimen. Patient educated on: therapeutic strategies Reason for continued inpatient stay Substantial Risk for: rapid decompensation Time Spent With Patient Time: Total time managing care of this patient today ____ minutes.
[2025-02-14] MEDS: Amphetamine Mixed Salts 10 MG TABLET 30 MG PO (11:39)
[2025-02-14 14:29] VITALS: BP 145/84; PULSE 110
[2025-02-14 20:00] VITALS: BP 128/85; PULSE 102; TEMP 36.7; O2SAT 96
[2025-02-14 21:08] VITALS: BP 128/85; PULSE 102
[2025-02-15 08:00] VITALS: BP 143/88; PULSE 87; RESP 18; TEMP 36.5; O2SAT 96
[2025-02-15] MEDS: Dextroamphetamine/Amphetamine XR 10 MG CAP.ER.24H 30 MG PO (08:13)
[2025-02-15] MEDS: Amphetamine Mixed Salts 10 MG TABLET 30 MG PO (11:30)
[2025-02-15 15:10] VITALS: BP 138/99; PULSE 110; RESP 18
--- NOTE | 2025-02-15 15:59 | P.PNPSI_ITS ---
Subjective Subjective Date of Service: 02/15/25 Reason For Visit: PTSD, Bipolar disorder with psychosis Subjective Notes: Conditional Voluntary Healthcare Proxy: No Guardianship: No Medical Problems Affecting Mental Status: No Interim History: Pt, Sanjuanita Baeza [employer], tw met with account supervisor via zoom for 2.5 hours today to discuss what pt needs to do to appeal loss of custody. Pt pleased with this meeting, organized in her presentation and states she is more hopeful when the meeting ended. Medication Compliance: Yes Side effects from medications: No Attending Groups: Yes Review of Systems Acute medical concerns: No Medical Review of Systems: unchanged Review of Systems Review of Systems Denies Mental Status Exam Mental Status Exam Patient Appearance: Appropriate Patient Orientation: Person, Place, Time and Situation Level of Consciousness: Alert Patient Behavior: Appropriate, Talkative, Cooperative and Good Eye Contact Mood Description: Depressed, Anxious, Sad and Apprehensive Affect Description: Flat and Apprehensive Patient Cognition Impaired: No Ability to Follow Directions: Good Speech Pattern: Spontaneous Speech Memory Description: Intact and Episodic Impaired Hallucinations: None Delusions: Not Present Perceptual Disturbances: Depersonalization and Derealization Thought Process: Rumination Thought Content: positive for Circumstantial, positive for Perseveration and positive for Suicidal Ideation (denies) Depressive Symptoms: Thoughts of /Suicide (denies) Judgement: Good Diagnostics Vital Signs (24Hr): Vital Signs - 24 hr 02/14/25 20:00 02/14/25 21:08 02/15/25 08:00 Temperature 98.1 F 97.7 F Pulse Rate 102 H 102 H 87 Respiratory Rate 18 Blood Pressure 128/85 128/85 143/88 H Pulse Oximetry 96 96 Oxygen Delivery Method Room Air Room Air 02/15/25 15:10 Temperature Pulse Rate 110 H Respiratory Rate 18 Blood Pressure 138/99 H Pulse Oximetry Oxygen Delivery Method BMI result Body Mass Index 31.9 Labs 01/29/25 23:58 01/29/25 23:58 Medications Medications Current Medications Acetaminophen (Acetaminophen 325 Mg Tablet) 650 mg PO Q6H PRN PRN Reason: Headache/Pain, Scale 1-10 Last Admin: 02/13/25 17:28 Dose: 650 mg Al Hydroxide/Mg Hydroxide (Magnesium Hydrox/Alum Hydrox 30 Ml Oral.Susp) 30 ml PO Q6H PRN PRN Reason: Heartburn/Nausea Amphetamine/Dextroamphetamine (Amphetamine Mixed Salts 10 Mg Tablet) 30 mg PO DAILY@1200 [facility] Last Admin: 02/15/25 11:30 Dose: 30 mg Amphetamine/Dextroamphetamine (Dextroamphetamine/Amphetamine Xr 10 Mg Cap.Er.24h) 30 mg PO DAILY [facility] Last Admin: 02/15/25 08:13 Dose: 30 mg Diazepam (Diazepam 5 Mg Tablet) 10 mg PO TID PRN PRN Reason: severe anxiety Last Admin: 02/15/25 15:11 Dose: 10 mg Diphenhydramine HCl (Diphenhydramine Hcl 25 Mg Capsule) 25 mg PO BID PRN PRN Reason: Anxiety Last Admin: 02/14/25 17:21 Dose: 25 mg Duloxetine HCl (Duloxetine Hcl 30 Mg Capsule.Dr) 30 mg PO BIDWM [facility] Last Admin: 02/15/25 08:13 Dose: 30 mg Folic Acid (Folic Acid 1 Mg Tablet) 1 mg PO DAILY [facility] Last Admin: 02/15/25 08:13 Dose: 1 mg Hydroxyzine HCl (Hydroxyzine Hcl 25 Mg Tablet) 25 mg PO Q6H PRN PRN Reason: mild anxiety Last Admin: 02/14/25 17:21 Dose: 25 mg Magnesium Hydroxide (Milk Of Magnesia 30 Ml Oral.Susp) 30 ml PO DAILY PRN PRN Reason: Constipation Nicotine Polacrilex (Nicotine Polacrilex 2 Mg Gum) 4 mg BUCCAL Q2H PRN PRN Reason: Nicotine Cravings Olanzapine (Olanzapine 10 Mg Tablet) 10 mg PO BID [facility] Last Admin: 02/15/25 08:13 Dose: 10 mg Propranolol HCl (Propranolol Hcl 20 Mg Tablet) 20 mg PO TID [facility]; Protocol Last Admin: 02/15/25 15:11 Dose: 20 mg Thiamine HCl (Thiamine Hcl 100 Mg Tablet) 100 mg PO DAILY [facility] Last Admin: 02/15/25 08:13 Dose: 100 mg Trazodone HCl (Trazodone Hcl 50 Mg Tablet) 50 mg PO BEDTIME MRX1 PRN PRN Reason: Insomnia Last Admin: 02/14/25 21:09 Dose: 50 mg Allergies Allergies Allergy/AdvReac Type Severity Reaction Status Date / Time gluten AdvReac Gastrointestinal Verified 01/30/25 06:48 Upset lithium AdvReac Unknown Verified 01/30/25 06:48 wheat AdvReac Gastrointestinal Verified 01/30/25 06:48 Upset Assessment & Plan Assessment & Plan (1) Bipolar disorder with psychotic features: Status: Acute Code(s): F31.9 - Bipolar disorder, unspecified (2) PTSD (post-traumatic stress disorder): Status: Acute Code(s): F43.10 - Post-traumatic stress disorder, unspecified Plan Admit, CV, 15 minute checks Collateral contact Help pt reconnect to OP resources and with her community again Medication assessement-continue current regime at this time Diagnostics as needed Encourage full milieu Discharge planning 02/01/25- Increase Valium prn to TID (dosing pt uses at home) Thiamine 100 mg daily (B12 level 196) Folic Acid 1 mg daily (Folic Acid level 3.4) 02/02 pt says she's fair... and trying to rest after dealing with distressing news dealing with this past week. Pt's valium recently increased; she's trying to use less than offered. 02/03 same presentation; continue treatment plan 02/04 continue tx 02/05 continue tx 02/06 Waiting to hear from the children's guardian so she may customize her plan to favor having custody of her children returned. 02/08 Continue regime/tx Meeting with account supervisor 02/13/25. 02/11 Continue tx 02/13 Continue tx 02/14: Moderate anxiety and depression related to custody patel with the their 2 daughters. Mood continues to improve. No SI/HI/AH/VH. Continue current treatment regimen. 02/15: Continue tx. Pt will meet again with children's account supervisor next week. Continue to monitor given new information she has received today. Patient educated on: therapeutic strategies Reason for continued inpatient stay Substantial Risk for: rapid decompensation Time Spent With Patient Time: Total time managing care of this patient today ____ minutes.
[2025-02-15 19:41] VITALS: BP 129/87; PULSE 107; TEMP 36.6; O2SAT 97
[2025-02-15 20:25] VITALS: BP 129/87; PULSE 97
[2025-02-16 08:00] VITALS: BP 132/84; PULSE 100; TEMP 36.3; O2SAT 98
[2025-02-16] MEDS: Dextroamphetamine/Amphetamine XR 10 MG CAP.ER.24H 30 MG PO (08:16)
[2025-02-16] MEDS: Amphetamine Mixed Salts 10 MG TABLET 30 MG PO (12:29)
[2025-02-16 14:44] VITALS: BP 170/82
[2025-02-16 15:45] VITALS: BP 151/92; PULSE 94
--- NOTE | 2025-02-16 16:52 | HO.PSYCHPN ---
Subjective Subjective Date of Service: 02/16/25 Reason For Visit: PTSD, Bipolar disorder with psychosis Interim History: Patient seen discussed with RN. Patient reports feeling OK . Medications are helpful. She is sad but thankful for the help and support she is receiving at the hospital with her children's custody case. More hopeful. Denies SI. Review of Systems Review of Systems Denies Yes all other systems are reviewed and are negative Constitutional: Denies fatigue and Denies fever(s) Cardiovascular: Denies chest pain and Denies dyspnea Respiratory: Denies dyspnea Gastrointestinal: Denies abdominal pain Endocrine: Denies fatigue Mental Status Exam Mental Status Exam Narrative: Appearance: Casually dressed, adequate hygiene Behavior: Calm and cooperative throughout the interview. Eye contact is appropriate, and there are no signs of psychomotor agitation or retardation Speech: Normal volume and prosody Thought process logical and goal-directed Thought content: Future oriented no self-harming thoughts Mood: Calm Affect: Constricted SI:denies HI:denies VH/AH:none Delusions: None Insight/judgment: Fair insight and judgment Memory/cog: Alert, oriented x 4. grossly intact to conversational testing Patient Appearance: Appropriate Patient Orientation: Person, Place, Time and Situation Level of Consciousness: Alert Patient Behavior: Appropriate, Talkative, Cooperative and Good Eye Contact Mood Description: Depressed, Anxious, Sad and Apprehensive Affect Description: Flat and Apprehensive Patient Cognition Impaired: No Ability to Follow Directions: Good Speech Pattern: Spontaneous Speech Memory Description: Intact and Episodic Impaired Diagnostics Vital Signs (24Hr): Vital Signs - 24 hr 02/15/25 19:41 02/15/25 20:25 02/16/25 08:00 Temperature 97.9 F 97.3 F Pulse Rate 107 H 97 100 Blood Pressure 129/87 129/87 132/84 Pulse Oximetry 97 98 Oxygen Delivery Method Room Air Room Air 02/16/25 14:44 Temperature Pulse Rate Blood Pressure 170/82 H Pulse Oximetry Oxygen Delivery Method BMI result Body Mass Index 31.9 Labs 01/29/25 23:58 01/29/25 23:58 Medications Medications Current Medications Acetaminophen (Acetaminophen 325 Mg Tablet) 650 mg PO Q6H PRN PRN Reason: Headache/Pain, Scale 1-10 Last Admin: 02/15/25 20:32 Dose: 650 mg Al Hydroxide/Mg Hydroxide (Magnesium Hydrox/Alum Hydrox 30 Ml Oral.Susp) 30 ml PO Q6H PRN PRN Reason: Heartburn/Nausea Amphetamine/Dextroamphetamine (Amphetamine Mixed Salts 10 Mg Tablet) 30 mg PO DAILY@1200 [facility] Last Admin: 02/16/25 12:29 Dose: 30 mg Amphetamine/Dextroamphetamine (Dextroamphetamine/Amphetamine Xr 10 Mg Cap.Er.24h) 30 mg PO DAILY [facility] Last Admin: 02/16/25 08:16 Dose: 30 mg Diazepam (Diazepam 5 Mg Tablet) 10 mg PO TID PRN PRN Reason: severe anxiety Last Admin: 02/16/25 16:22 Dose: 10 mg Diphenhydramine HCl (Diphenhydramine Hcl 25 Mg Capsule) 25 mg PO BID PRN PRN Reason: Anxiety Last Admin: 02/14/25 17:21 Dose: 25 mg Duloxetine HCl (Duloxetine Hcl 30 Mg Capsule.Dr) 30 mg PO BIDWM [facility] Last Admin: 02/16/25 16:22 Dose: 30 mg Folic Acid (Folic Acid 1 Mg Tablet) 1 mg PO DAILY [facility] Last Admin: 02/16/25 08:16 Dose: 1 mg Hydroxyzine HCl (Hydroxyzine Hcl 25 Mg Tablet) 25 mg PO Q6H PRN PRN Reason: mild anxiety Last Admin: 02/14/25 17:21 Dose: 25 mg Magnesium Hydroxide (Milk Of Magnesia 30 Ml Oral.Susp) 30 ml PO DAILY PRN PRN Reason: Constipation Nicotine Polacrilex (Nicotine Polacrilex 2 Mg Gum) 4 mg BUCCAL Q2H PRN PRN Reason: Nicotine Cravings Olanzapine (Olanzapine 10 Mg Tablet) 10 mg PO BID [facility] Last Admin: 02/16/25 08:16 Dose: 10 mg Propranolol HCl (Propranolol Hcl 20 Mg Tablet) 20 mg PO TID [facility]; Protocol Last Admin: 02/16/25 14:44 Dose: 20 mg Thiamine HCl (Thiamine Hcl 100 Mg Tablet) 100 mg PO DAILY [facility] Last Admin: 02/16/25 08:16 Dose: 100 mg Trazodone HCl (Trazodone Hcl 50 Mg Tablet) 50 mg PO BEDTIME MRX1 PRN PRN Reason: Insomnia Last Admin: 02/15/25 20:25 Dose: 50 mg Allergies Allergies Allergy/AdvReac Type Severity Reaction Status Date / Time gluten AdvReac Gastrointestinal Verified 01/30/25 06:48 Upset lithium AdvReac Unknown Verified 01/30/25 06:48 wheat AdvReac Gastrointestinal Verified 01/30/25 06:48 Upset Assessment & Plan Assessment & Plan (1) Bipolar disorder with psychotic features: Status: Acute Code(s): F31.9 - Bipolar disorder, unspecified (2) PTSD (post-traumatic stress disorder): Status: Acute Code(s): F43.10 - Post-traumatic stress disorder, unspecified Plan Admit, CV, 15 minute checks Collateral contact Help pt reconnect to OP resources and with her community again Medication assessement-continue current regime at this time Diagnostics as needed Encourage full milieu Discharge planning 02/01/25- Increase Valium prn to TID (dosing pt uses at home) Thiamine 100 mg daily (B12 level 196) Folic Acid 1 mg daily (Folic Acid level 3.4) 02/02 pt says she's fair... and trying to rest after dealing with distressing news dealing with this past week. Pt's valium recently increased; she's trying to use less than offered. 02/03 same presentation; continue treatment plan 02/04 continue tx 02/05 continue tx 02/06 Waiting to hear from the children's guardian so she may customize her plan to favor having custody of her children returned. 02/08 Continue regime/tx Meeting with montessori lead teacher 02/13/25. 02/11 Continue tx 02/13 Continue tx 02/14: Moderate anxiety and depression related to custody patel with the their 2 daughters. Mood continues to improve. No SI/HI/AH/VH. Continue current treatment regimen. 02/15: Continue tx. Pt will meet again with children's montessori lead teacher next week. Continue to monitor given new information she has received today. 02/16: Continue current management and treatment plan. Reason for continued inpatient stay Substantial Risk for: harm to self, inability to function and rapid decompensation Time Spent With Patient Time: Total time managing care of this patient today ____ minutes.
[2025-02-16 19:29] VITALS: BP 127/72; PULSE 93; TEMP 36.7; O2SAT 98
[2025-02-17 08:00] VITALS: BP 132/90; PULSE 110; TEMP 36.5; O2SAT 98
[2025-02-17] MEDS: Dextroamphetamine/Amphetamine XR 10 MG CAP.ER.24H 30 MG PO (08:09)
[2025-02-17] MEDS: Amphetamine Mixed Salts 10 MG TABLET 30 MG PO (11:01)
[2025-02-17 14:05] VITALS: BP 160/91
--- NOTE | 2025-02-17 16:20 | P.PNPSI_ITS ---
Subjective Subjective Date of Service: 02/17/25 Reason For Visit: PTSD, Bipolar disorder with psychosis Interim History: Patient seen discussed with RN. Says she feels ok. She had a meeting with her GAL. She is thankful that the hospital has been supportive of her and that her team has been advocating for her with the [facility]. Medications help. Feels sad because her 10 year old daughter is struggling emotionally. Denies SI. Review of Systems Review of Systems Denies Yes all other systems are reviewed and are negative Constitutional: Denies fatigue and Denies fever(s) Cardiovascular: Denies chest pain and Denies dyspnea Respiratory: Denies dyspnea Gastrointestinal: Denies abdominal pain Endocrine: Denies fatigue Mental Status Exam Mental Status Exam Narrative: Appearance: Casually dressed, adequate hygiene Behavior: Calm and cooperative throughout the interview. Eye contact is appropriate, and there are no signs of psychomotor agitation or retardation Speech: Normal volume and prosody Thought process logical and goal-directed Thought content: Future oriented no self-harming thoughts Mood: Calm Affect: Constricted SI:denies HI:denies VH/AH:none Delusions: None Insight/judgment: Fair insight and judgment Memory/cog: Alert, oriented x 4. grossly intact to conversational testing Patient Appearance: Appropriate Patient Orientation: Person, Place, Time and Situation Level of Consciousness: Alert Patient Behavior: Appropriate, Talkative, Cooperative and Good Eye Contact Mood Description: Depressed, Anxious, Sad and Apprehensive Affect Description: Flat and Apprehensive Patient Cognition Impaired: No Ability to Follow Directions: Good Speech Pattern: Spontaneous Speech Memory Description: Intact and Episodic Impaired Diagnostics Vital Signs (24Hr): Vital Signs - 24 hr 02/16/25 19:29 02/17/25 08:00 02/17/25 14:05 Temperature 98.1 F 97.7 F Pulse Rate 93 110 H Blood Pressure 127/72 132/90 H 160/91 H Pulse Oximetry 98 98 Oxygen Delivery Method Room Air Room Air BMI result Body Mass Index 31.9 Labs 01/29/25 23:58 01/29/25 23:58 Medications Medications Current Medications Acetaminophen (Acetaminophen 325 Mg Tablet) 650 mg PO Q6H PRN PRN Reason: Headache/Pain, Scale 1-10 Last Admin: 02/15/25 20:32 Dose: 650 mg Al Hydroxide/Mg Hydroxide (Magnesium Hydrox/Alum Hydrox 30 Ml Oral.Susp) 30 ml PO Q6H PRN PRN Reason: Heartburn/Nausea Amphetamine/Dextroamphetamine (Amphetamine Mixed Salts 10 Mg Tablet) 30 mg PO DAILY@1200 [facility] Last Admin: 02/17/25 11:01 Dose: 30 mg Amphetamine/Dextroamphetamine (Dextroamphetamine/Amphetamine Xr 10 Mg Cap.Er.24h) 30 mg PO DAILY [facility] Last Admin: 02/17/25 08:09 Dose: 30 mg Diazepam (Diazepam 5 Mg Tablet) 10 mg PO TID PRN PRN Reason: severe anxiety Last Admin: 02/17/25 14:49 Dose: 10 mg Diphenhydramine HCl (Diphenhydramine Hcl 25 Mg Capsule) 25 mg PO BID PRN PRN Reason: Anxiety Last Admin: 02/14/25 17:21 Dose: 25 mg Duloxetine HCl (Duloxetine Hcl 30 Mg Capsule.Dr) 30 mg PO BIDWM [facility] Last Admin: 02/17/25 08:09 Dose: 30 mg Folic Acid (Folic Acid 1 Mg Tablet) 1 mg PO DAILY [facility] Last Admin: 02/17/25 08:09 Dose: 1 mg Hydroxyzine HCl (Hydroxyzine Hcl 25 Mg Tablet) 25 mg PO Q6H PRN PRN Reason: mild anxiety Last Admin: 02/14/25 17:21 Dose: 25 mg Magnesium Hydroxide (Milk Of Magnesia 30 Ml Oral.Susp) 30 ml PO DAILY PRN PRN Reason: Constipation Nicotine Polacrilex (Nicotine Polacrilex 2 Mg Gum) 4 mg BUCCAL Q2H PRN PRN Reason: Nicotine Cravings Olanzapine (Olanzapine 10 Mg Tablet) 10 mg PO BID [facility] Last Admin: 02/17/25 08:09 Dose: 10 mg Propranolol HCl (Propranolol Hcl 20 Mg Tablet) 20 mg PO TID [facility]; Protocol Last Admin: 02/17/25 14:05 Dose: 20 mg Thiamine HCl (Thiamine Hcl 100 Mg Tablet) 100 mg PO DAILY [facility] Last Admin: 02/17/25 08:09 Dose: 100 mg Trazodone HCl (Trazodone Hcl 50 Mg Tablet) 50 mg PO BEDTIME MRX1 PRN PRN Reason: Insomnia Last Admin: 02/16/25 20:27 Dose: 50 mg Allergies Allergies Allergy/AdvReac Type Severity Reaction Status Date / Time gluten AdvReac Gastrointestinal Verified 01/30/25 06:48 Upset lithium AdvReac Unknown Verified 01/30/25 06:48 wheat AdvReac Gastrointestinal Verified 01/30/25 06:48 Upset Assessment & Plan Assessment & Plan (1) Bipolar disorder with psychotic features: Status: Acute Code(s): F31.9 - Bipolar disorder, unspecified (2) PTSD (post-traumatic stress disorder): Status: Acute Code(s): F43.10 - Post-traumatic stress disorder, unspecified Plan Admit, CV, 15 minute checks Collateral contact Help pt reconnect to OP resources and with her community again Medication assessement-continue current regime at this time Diagnostics as needed Encourage full milieu Discharge planning 02/01/25- Increase Valium prn to TID (dosing pt uses at home) Thiamine 100 mg daily (B12 level 196) Folic Acid 1 mg daily (Folic Acid level 3.4) 02/02 pt says she's fair... and trying to rest after dealing with distressing news dealing with this past week. Pt's valium recently increased; she's trying to use less than offered. 02/03 same presentation; continue treatment plan 02/04 continue tx 02/05 continue tx 02/06 Waiting to hear from the children's guardian so she may customize her plan to favor having custody of her children returned. 02/08 Continue regime/tx Meeting with wind turbine design engineer 02/13/25. 02/11 Continue tx 02/13 Continue tx 02/14: Moderate anxiety and depression related to custody patel with the their 2 daughters. Mood continues to improve. No SI/HI/AH/VH. Continue current treatment regimen. 02/15: Continue tx. Pt will meet again with children's wind turbine design engineer next week. Continue to monitor given new information she has received today. 02/16: Continue current management and treatment plan. 02/17: Continue current management and treatment plan. Instill hope and educate about children's resilience in face of adversity. Reason for continued inpatient stay Substantial Risk for: harm to self, inability to function and rapid decompensation Time Spent With Patient Time: Total time managing care of this patient today ____ minutes.
[2025-02-17 19:48] VITALS: BP 105/63; PULSE 104; RESP 20; TEMP 36.3; O2SAT 97
[2025-02-18 08:00] VITALS: BP 126/79; PULSE 96; RESP 18; TEMP 36.8; O2SAT 97
[2025-02-18] MEDS: Dextroamphetamine/Amphetamine XR 10 MG CAP.ER.24H 30 MG PO (08:21)
--- NOTE | 2025-02-18 10:10 | HO.PSYCHPN ---
Subjective Subjective Date of Service: 02/18/25 Reason For Visit: PTSD, Bipolar disorder with psychosis Subjective Notes: Conditional Voluntary Healthcare Proxy: No Guardianship: No Medical Problems Affecting Mental Status: No Interim History: Pt reports a reasonable weekend. Continues with anxiety about custody process. Will meet with children's launching pad mechanic this evening. Will talk with [facility] [employer] Committee on 02/19 9am to discuss representation for childrens' custody case upcoming. Medication Compliance: Yes Side effects from medications: No Attending Groups: Yes Review of Systems Acute medical concerns: No Medical Review of Systems: unchanged Review of Systems Review of Systems Denies Mental Status Exam Mental Status Exam Patient Appearance: Appropriate Patient Orientation: Person, Place, Time and Situation Level of Consciousness: Alert Patient Behavior: Appropriate, Talkative, Cooperative and Good Eye Contact Mood Description: Anxious and Apprehensive Affect Description: Apprehensive Patient Cognition Impaired: No Ability to Follow Directions: Good Speech Pattern: Spontaneous Speech Memory Description: Intact and Episodic Impaired Hallucinations: None Delusions: Not Present Perceptual Disturbances: Depersonalization and Derealization Thought Process: Rumination Thought Content: positive for Circumstantial, positive for Perseveration and positive for Suicidal Ideation (denies) Depressive Symptoms: Thoughts of /Suicide (denies) Judgement: Good Diagnostics Vital Signs (24Hr): Vital Signs - 24 hr 02/17/25 14:05 02/17/25 19:48 02/18/25 08:00 Temperature 97.3 F 98.3 F Pulse Rate 104 H 96 Respiratory Rate 20 18 Blood Pressure 160/91 H 105/63 126/79 Pulse Oximetry 97 97 Oxygen Delivery Method Room Air Room Air BMI result Body Mass Index 31.9 Labs 01/29/25 23:58 01/29/25 23:58 Medications Medications Current Medications Acetaminophen (Acetaminophen 325 Mg Tablet) 650 mg PO Q6H PRN PRN Reason: Headache/Pain, Scale 1-10 Last Admin: 02/17/25 17:50 Dose: 650 mg Al Hydroxide/Mg Hydroxide (Magnesium Hydrox/Alum Hydrox 30 Ml Oral.Susp) 30 ml PO Q6H PRN PRN Reason: Heartburn/Nausea Amphetamine/Dextroamphetamine (Amphetamine Mixed Salts 10 Mg Tablet) 30 mg PO DAILY@1200 [facility] Last Admin: 02/17/25 11:01 Dose: 30 mg Amphetamine/Dextroamphetamine (Dextroamphetamine/Amphetamine Xr 10 Mg Cap.Er.24h) 30 mg PO DAILY [facility] Last Admin: 02/18/25 08:21 Dose: 30 mg Diazepam (Diazepam 5 Mg Tablet) 10 mg PO TID PRN PRN Reason: severe anxiety Last Admin: 02/18/25 08:27 Dose: 10 mg Diphenhydramine HCl (Diphenhydramine Hcl 25 Mg Capsule) 25 mg PO BID PRN PRN Reason: Anxiety Last Admin: 02/17/25 21:44 Dose: 25 mg Duloxetine HCl (Duloxetine Hcl 30 Mg Capsule.Dr) 30 mg PO BIDWM [facility] Last Admin: 02/18/25 08:21 Dose: 30 mg Folic Acid (Folic Acid 1 Mg Tablet) 1 mg PO DAILY [facility] Last Admin: 02/18/25 08:21 Dose: 1 mg Hydroxyzine HCl (Hydroxyzine Hcl 25 Mg Tablet) 25 mg PO Q6H PRN PRN Reason: mild anxiety Last Admin: 02/17/25 21:43 Dose: 25 mg Magnesium Hydroxide (Milk Of Magnesia 30 Ml Oral.Susp) 30 ml PO DAILY PRN PRN Reason: Constipation Nicotine Polacrilex (Nicotine Polacrilex 2 Mg Gum) 4 mg BUCCAL Q2H PRN PRN Reason: Nicotine Cravings Olanzapine (Olanzapine 10 Mg Tablet) 10 mg PO BID [facility] Last Admin: 02/18/25 08:21 Dose: 10 mg Propranolol HCl (Propranolol Hcl 20 Mg Tablet) 20 mg PO TID [facility]; Protocol Last Admin: 02/18/25 08:21 Dose: 20 mg Thiamine HCl (Thiamine Hcl 100 Mg Tablet) 100 mg PO DAILY [facility] Last Admin: 02/18/25 08:21 Dose: 100 mg Trazodone HCl (Trazodone Hcl 50 Mg Tablet) 50 mg PO BEDTIME MRX1 PRN PRN Reason: Insomnia Last Admin: 02/17/25 21:43 Dose: 50 mg Allergies Allergies Allergy/AdvReac Type Severity Reaction Status Date / Time gluten AdvReac Gastrointestinal Verified 01/30/25 06:48 Upset lithium AdvReac Unknown Verified 01/30/25 06:48 wheat AdvReac Gastrointestinal Verified 01/30/25 06:48 Upset Assessment & Plan Assessment & Plan (1) Bipolar disorder with psychotic features: Status: Acute Code(s): F31.9 - Bipolar disorder, unspecified (2) PTSD (post-traumatic stress disorder): Status: Acute Code(s): F43.10 - Post-traumatic stress disorder, unspecified Plan Admit, CV, 15 minute checks Collateral contact Help pt reconnect to OP resources and with her community again Medication assessement-continue current regime at this time Diagnostics as needed Encourage full milieu Discharge planning 02/01/25- Increase Valium prn to TID (dosing pt uses at home) Thiamine 100 mg daily (B12 level 196) Folic Acid 1 mg daily (Folic Acid level 3.4) 02/02 pt says she's fair... and trying to rest after dealing with distressing news dealing with this past week. Pt's valium recently increased; she's trying to use less than offered. 02/03 same presentation; continue treatment plan 02/04 continue tx 02/05 continue tx 02/06 Waiting to hear from the children's guardian so she may customize her plan to favor having custody of her children returned. 02/08 Continue regime/tx Meeting with launching pad mechanic 02/13/25. 02/11 Continue tx 02/13 Continue tx 02/14: Moderate anxiety and depression related to custody patel with the their 2 daughters. Mood continues to improve. No SI/HI/AH/VH. Continue current treatment regimen. 02/15: Continue tx. Pt will meet again with children's launching pad mechanic next week. Continue to monitor given new information she has received today. 02/16: Continue current management and treatment plan. 02/17: Continue current management and treatment plan. Instill hope and educate about children's resilience in face of adversity. 02/18: Continue tx. Angélica appears to be gaining more confidence with community supports allowing her to be more actively involved in her children's custody case. Reason for continued inpatient stay Substantial Risk for: rapid decompensation Time Spent With Patient Time: Total time managing care of this patient today ____ minutes.
[2025-02-18] MEDS: Amphetamine Mixed Salts 10 MG TABLET 30 MG PO (11:04)
[2025-02-18 15:25] VITALS: BP 156/91; PULSE 113
[2025-02-18 20:03] VITALS: BP 126/78; PULSE 71; RESP 16; TEMP 36.7; O2SAT 98
[2025-02-18 20:55] VITALS: BP 126/78; PULSE 71
[2025-02-19 08:00] VITALS: BP 116/77; PULSE 98; TEMP 36.1; O2SAT 95
[2025-02-19 08:55] VITALS: BP 111/77; PULSE 98
[2025-02-19] MEDS: Dextroamphetamine/Amphetamine XR 10 MG CAP.ER.24H 30 MG PO (08:55)
[2025-02-19] MEDS: Amphetamine Mixed Salts 10 MG TABLET 30 MG PO (11:26)
[2025-02-19 14:47] VITALS: PULSE 94
--- NOTE | 2025-02-19 17:32 | P.PNPSI_ITS ---
Subjective Subjective Date of Service: 02/19/25 Reason For Visit: PTSD, Bipolar disorder with psychosis Subjective Notes: Conditional Voluntary Healthcare Proxy: No Guardianship: No Medical Problems Affecting Mental Status: No Interim History: Pt served an updated restraining order from parents today. She has completed an intake with Mental [facility] Legal [facility] Committee for representation for custody of her children. She has had communication with children's web development instructor today. She is attending groups, is organized, and is discussing concerns/worries about her future with the children, however, is reassured with community involvement. Thought process is logical, able to problem solve and expand her process to understand issues from parents and ex partner's perspective with rationale, logically. Medication Compliance: Yes Side effects from medications: No Attending Groups: Intermittent Review of Systems Acute medical concerns: No Medical Review of Systems: unchanged Review of Systems Review of Systems Denies Mental Status Exam Mental Status Exam Patient Appearance: Appropriate Patient Orientation: Person, Place, Time and Situation Level of Consciousness: Alert Patient Behavior: Appropriate, Talkative, Cooperative and Good Eye Contact Mood Description: Anxious and Apprehensive Affect Description: Apprehensive Patient Cognition Impaired: No Ability to Follow Directions: Good Speech Pattern: Spontaneous Speech Memory Description: Intact and Episodic Impaired Hallucinations: None Delusions: Not Present Perceptual Disturbances: Depersonalization and Derealization Thought Process: Rumination Thought Content: positive for Circumstantial, positive for Perseveration and positive for Suicidal Ideation (denies) Depressive Symptoms: Thoughts of /Suicide (denies) Judgement: Good Diagnostics Vital Signs (24Hr): Vital Signs - 24 hr 02/18/25 20:03 02/18/25 20:55 02/19/25 08:00 Temperature 98.1 F 96.9 F Pulse Rate 71 71 98 Respiratory Rate 16 Blood Pressure 126/78 126/78 116/77 Pulse Oximetry 98 95 Oxygen Delivery Method Room Air Room Air 02/19/25 08:55 02/19/25 14:47 Temperature Pulse Rate 98 94 Respiratory Rate Blood Pressure 111/77 Pulse Oximetry Oxygen Delivery Method BMI result Body Mass Index 31.9 Labs 01/29/25 23:58 01/29/25 23:58 Medications Medications Current Medications Acetaminophen (Acetaminophen 325 Mg Tablet) 650 mg PO Q6H PRN PRN Reason: Headache/Pain, Scale 1-10 Last Admin: 02/18/25 18:31 Dose: 650 mg Al Hydroxide/Mg Hydroxide (Magnesium Hydrox/Alum Hydrox 30 Ml Oral.Susp) 30 ml PO Q6H PRN PRN Reason: Heartburn/Nausea Amphetamine/Dextroamphetamine (Amphetamine Mixed Salts 10 Mg Tablet) 30 mg PO DAILY@1200 [facility] Last Admin: 02/19/25 11:26 Dose: 30 mg Amphetamine/Dextroamphetamine (Dextroamphetamine/Amphetamine Xr 10 Mg Cap.Er.24h) 30 mg PO DAILY [facility] Last Admin: 02/19/25 08:55 Dose: 30 mg Diazepam (Diazepam 5 Mg Tablet) 10 mg PO TID PRN PRN Reason: severe anxiety Last Admin: 02/19/25 08:55 Dose: 10 mg Diphenhydramine HCl (Diphenhydramine Hcl 25 Mg Capsule) 25 mg PO BID PRN PRN Reason: Anxiety Last Admin: 02/18/25 18:31 Dose: 25 mg Duloxetine HCl (Duloxetine Hcl 30 Mg Capsule.Dr) 30 mg PO BIDWM [facility] Last Admin: 02/19/25 16:37 Dose: 30 mg Folic Acid (Folic Acid 1 Mg Tablet) 1 mg PO DAILY [facility] Last Admin: 02/19/25 08:55 Dose: 1 mg Hydroxyzine HCl (Hydroxyzine Hcl 25 Mg Tablet) 25 mg PO Q6H PRN PRN Reason: mild anxiety Last Admin: 02/18/25 18:31 Dose: 25 mg Magnesium Hydroxide (Milk Of Magnesia 30 Ml Oral.Susp) 30 ml PO DAILY PRN PRN Reason: Constipation Nicotine Polacrilex (Nicotine Polacrilex 2 Mg Gum) 4 mg BUCCAL Q2H PRN PRN Reason: Nicotine Cravings Olanzapine (Olanzapine 10 Mg Tablet) 10 mg PO BID [facility] Last Admin: 02/19/25 08:55 Dose: 10 mg Propranolol HCl (Propranolol Hcl 20 Mg Tablet) 20 mg PO TID [facility]; Protocol Last Admin: 02/19/25 14:47 Dose: 20 mg Thiamine HCl (Thiamine Hcl 100 Mg Tablet) 100 mg PO DAILY [facility] Last Admin: 02/19/25 08:55 Dose: 100 mg Trazodone HCl (Trazodone Hcl 50 Mg Tablet) 50 mg PO BEDTIME MRX1 PRN PRN Reason: Insomnia Last Admin: 02/18/25 20:56 Dose: 50 mg Allergies Allergies Allergy/AdvReac Type Severity Reaction Status Date / Time gluten AdvReac Gastrointestinal Verified 01/30/25 06:48 Upset lithium AdvReac Unknown Verified 01/30/25 06:48 wheat AdvReac Gastrointestinal Verified 01/30/25 06:48 Upset Assessment & Plan Assessment & Plan (1) Bipolar disorder with psychotic features: Status: Acute Code(s): F31.9 - Bipolar disorder, unspecified (2) PTSD (post-traumatic stress disorder): Status: Acute Code(s): F43.10 - Post-traumatic stress disorder, unspecified Plan Admit, CV, 15 minute checks Collateral contact Help pt reconnect to OP resources and with her community again Medication assessement-continue current regime at this time Diagnostics as needed Encourage full milieu Discharge planning 02/01/25- Increase Valium prn to TID (dosing pt uses at home) Thiamine 100 mg daily (B12 level 196) Folic Acid 1 mg daily (Folic Acid level 3.4) 02/02 pt says she's fair... and trying to rest after dealing with distressing news dealing with this past week. Pt's valium recently increased; she's trying to use less than offered. 02/03 same presentation; continue treatment plan 02/04 continue tx 02/05 continue tx 02/06 Waiting to hear from the children's guardian so she may customize her plan to favor having custody of her children returned. 02/08 Continue regime/tx Meeting with web development instructor 02/13/25. 02/11 Continue tx 02/13 Continue tx 02/14: Moderate anxiety and depression related to custody patel with the their 2 daughters. Mood continues to improve. No SI/HI/AH/VH. Continue current treatment regimen. 02/15: Continue tx. Pt will meet again with children's web development instructor next week. Continue to monitor given new information she has received today. 02/16: Continue current management and treatment plan. 02/17: Continue current management and treatment plan. Instill hope and educate about children's resilience in face of adversity. 02/18: Continue tx. Angélica appears to be gaining more confidence with community supports allowing her to be more actively involved in her children's custody case. 02/19: Continue tx. DC Planning Reason for continued inpatient stay Substantial Risk for: rapid decompensation Time Spent With Patient Time: Total time managing care of this patient today ____ minutes.
[2025-02-19 20:49] VITALS: BP 138/88; PULSE 101
[2025-02-19 21:29] VITALS: BP 138/88; PULSE 101; RESP 18; TEMP 36.7; O2SAT 98
[2025-02-20 08:00] VITALS: BP 133/84; PULSE 113; TEMP 36.2; O2SAT 96
[2025-02-20 08:40] VITALS: BP 133/84; PULSE 113
[2025-02-20] MEDS: Dextroamphetamine/Amphetamine XR 10 MG CAP.ER.24H 30 MG PO (08:41)
[2025-02-20] MEDS: Amphetamine Mixed Salts 10 MG TABLET 30 MG PO (11:44)
--- NOTE | 2025-02-20 12:16 | P.PNPSI_ITS ---
Subjective Subjective Date of Service: 02/20/25 Reason For Visit: PTSD, Bipolar disorder with psychosis Subjective Notes: Conditional Voluntary Interim History: Pt moving ahead, looking at options for her discharge. She, by history has worked with [facility] however, reports her father would not follow the rules and is unsure if she would be unwelcome there in the future. Denies SI,HI. No AH,VH. No sx of bryce or psychosis. Focused on her tasks given to her by plaster machine tender. Forming a new relationship with workers compensation attorney group assigned to represent her for custody. Hoping for dc to supports. Today, she is not feeling that going home alone is the best option-identifies needing ongoing support and not feeling prepared to leave the hospital at this time. Medication Compliance: Yes Side effects from medications: No Attending Groups: Yes Review of Systems Acute medical concerns: No Review of Systems Review of Systems Denies Mental Status Exam Mental Status Exam Patient Appearance: Appropriate Patient Orientation: Person, Place, Time and Situation Level of Consciousness: Alert Patient Behavior: Appropriate, Talkative, Cooperative and Good Eye Contact Mood Description: Apprehensive Affect Description: Apprehensive Patient Cognition Impaired: No Ability to Follow Directions: Good Speech Pattern: Spontaneous Speech Memory Description: Intact and Episodic Impaired Hallucinations: None Delusions: Not Present Perceptual Disturbances: Depersonalization and Derealization Thought Process: Rumination Thought Content: positive for Circumstantial, positive for Perseveration and positive for Suicidal Ideation (denies) Depressive Symptoms: Thoughts of /Suicide (denies) Judgement: Good Diagnostics Vital Signs (24Hr): Vital Signs - 24 hr 02/19/25 14:47 02/19/25 20:49 02/19/25 21:29 Temperature 98.1 F Pulse Rate 94 101 H 101 H Respiratory Rate 18 Blood Pressure 138/88 138/88 Pulse Oximetry 98 Oxygen Delivery Method Room Air 02/20/25 08:40 Temperature Pulse Rate 113 H Respiratory Rate Blood Pressure 133/84 Pulse Oximetry Oxygen Delivery Method BMI result Body Mass Index 31.9 Labs 01/29/25 23:58 01/29/25 23:58 Medications Medications Current Medications Acetaminophen (Acetaminophen 325 Mg Tablet) 650 mg PO Q6H PRN PRN Reason: Headache/Pain, Scale 1-10 Last Admin: 02/19/25 20:49 Dose: 650 mg Al Hydroxide/Mg Hydroxide (Magnesium Hydrox/Alum Hydrox 30 Ml Oral.Susp) 30 ml PO Q6H PRN PRN Reason: Heartburn/Nausea Amphetamine/Dextroamphetamine (Amphetamine Mixed Salts 10 Mg Tablet) 30 mg PO DAILY@1200 [facility] Last Admin: 02/20/25 11:44 Dose: 30 mg Amphetamine/Dextroamphetamine (Dextroamphetamine/Amphetamine Xr 10 Mg Cap.Er.24h) 30 mg PO DAILY [facility] Last Admin: 02/20/25 08:41 Dose: 30 mg Diazepam (Diazepam 5 Mg Tablet) 10 mg PO TID PRN PRN Reason: severe anxiety Last Admin: 02/20/25 08:44 Dose: 10 mg Diphenhydramine HCl (Diphenhydramine Hcl 25 Mg Capsule) 25 mg PO BID PRN PRN Reason: Anxiety Last Admin: 02/19/25 20:49 Dose: 25 mg Duloxetine HCl (Duloxetine Hcl 30 Mg Capsule.Dr) 30 mg PO BIDWM [facility] Last Admin: 02/20/25 08:40 Dose: 30 mg Folic Acid (Folic Acid 1 Mg Tablet) 1 mg PO DAILY [facility] Last Admin: 02/20/25 08:40 Dose: 1 mg Hydroxyzine HCl (Hydroxyzine Hcl 25 Mg Tablet) 25 mg PO Q6H PRN PRN Reason: mild anxiety Last Admin: 02/18/25 18:31 Dose: 25 mg Magnesium Hydroxide (Milk Of Magnesia 30 Ml Oral.Susp) 30 ml PO DAILY PRN PRN Reason: Constipation Nicotine Polacrilex (Nicotine Polacrilex 2 Mg Gum) 4 mg BUCCAL Q2H PRN PRN Reason: Nicotine Cravings Olanzapine (Olanzapine 10 Mg Tablet) 10 mg PO BID [facility] Last Admin: 02/20/25 08:40 Dose: 10 mg Propranolol HCl (Propranolol Hcl 20 Mg Tablet) 20 mg PO TID [facility]; Protocol Last Admin: 02/20/25 08:40 Dose: 20 mg Thiamine HCl (Thiamine Hcl 100 Mg Tablet) 100 mg PO DAILY [facility] Last Admin: 02/20/25 08:40 Dose: 100 mg Trazodone HCl (Trazodone Hcl 50 Mg Tablet) 50 mg PO BEDTIME MRX1 PRN PRN Reason: Insomnia Last Admin: 02/19/25 20:49 Dose: 50 mg Allergies Allergies Allergy/AdvReac Type Severity Reaction Status Date / Time gluten AdvReac Gastrointestinal Verified 01/30/25 06:48 Upset lithium AdvReac Unknown Verified 01/30/25 06:48 wheat AdvReac Gastrointestinal Verified 01/30/25 06:48 Upset Assessment & Plan Assessment & Plan (1) Bipolar disorder with psychotic features: Status: Acute Code(s): F31.9 - Bipolar disorder, unspecified (2) PTSD (post-traumatic stress disorder): Status: Acute Code(s): F43.10 - Post-traumatic stress disorder, unspecified Plan Admit, CV, 15 minute checks Collateral contact Help pt reconnect to OP resources and with her community again Medication assessement-continue current regime at this time Diagnostics as needed Encourage full milieu Discharge planning 02/01/25- Increase Valium prn to TID (dosing pt uses at home) Thiamine 100 mg daily (B12 level 196) Folic Acid 1 mg daily (Folic Acid level 3.4) 02/02 pt says she's fair... and trying to rest after dealing with distressing news dealing with this past week. Pt's valium recently increased; she's trying to use less than offered. 02/03 same presentation; continue treatment plan 02/04 continue tx 02/05 continue tx 02/06 Waiting to hear from the children's guardian so she may customize her plan to favor having custody of her children returned. 02/08 Continue regime/tx Meeting with plaster machine tender 02/13/25. 02/11 Continue tx 02/13 Continue tx 02/14: Moderate anxiety and depression related to custody patel with the their 2 daughters. Mood continues to improve. No SI/HI/AH/VH. Continue current treatment regimen. 02/15: Continue tx. Pt will meet again with children's plaster machine tender next week. Continue to monitor given new information she has received today. 02/16: Continue current management and treatment plan. 02/17: Continue current management and treatment plan. Instill hope and educate about children's resilience in face of adversity. 02/18: Continue tx. Angélica appears to be gaining more confidence with community supports allowing her to be more actively involved in her children's custody case. 02/19: Continue tx. DC Planning 02/20: Continue tx Reason for continued inpatient stay Substantial Risk for: rapid decompensation Time Spent With Patient Time: Total time managing care of this patient today ____ minutes.
[2025-02-20 15:39] VITALS: BP 130/80; PULSE 103
[2025-02-20 20:00] VITALS: BP 146/83; PULSE 102; TEMP 35.8; O2SAT 97
[2025-02-21 07:00] VITALS: BMI 32.1
[2025-02-21 08:00] VITALS: BP 132/89; PULSE 87; RESP 16; TEMP 36.1; O2SAT 97
[2025-02-21] MEDS: Dextroamphetamine/Amphetamine XR 10 MG CAP.ER.24H 30 MG PO (08:23)
[2025-02-21] MEDS: Amphetamine Mixed Salts 10 MG TABLET 30 MG PO (11:50)
[2025-02-21 14:36] VITALS: BP 142/78; PULSE 78
--- NOTE | 2025-02-21 15:16 | P.PNPSI_ITS ---
Subjective Subjective Date of Service: 02/21/25 Reason For Visit: PTSD, Bipolar disorder with psychosis Subjective Notes: Conditional Voluntary Healthcare Proxy: No Guardianship: No Medical Problems Affecting Mental Status: No Interim History: Pt discussed organizing for discharge. Prior to leaving she would like to have one more call with patrol conductor for questions. She expresses gratitude to team, especially her social work msw for support and assistance. She remains unsure about living arrangement options. Medication Compliance: Yes Side effects from medications: No Attending Groups: Yes Review of Systems Acute medical concerns: No Review of Systems Review of Systems Denies Mental Status Exam Mental Status Exam Patient Appearance: Appropriate Patient Orientation: Person, Place, Time and Situation Level of Consciousness: Alert Patient Behavior: Appropriate, Talkative, Cooperative and Good Eye Contact Mood Description: Apprehensive Affect Description: Apprehensive Patient Cognition Impaired: No Ability to Follow Directions: Good Speech Pattern: Spontaneous Speech Memory Description: Intact and Episodic Impaired Hallucinations: None Delusions: Not Present Perceptual Disturbances: Depersonalization and Derealization Thought Process: Rumination Thought Content: positive for Circumstantial, positive for Perseveration and positive for Suicidal Ideation (denies) Depressive Symptoms: Thoughts of /Suicide (denies) Judgement: Good Diagnostics Vital Signs (24Hr): Vital Signs - 24 hr 02/20/25 15:39 02/20/25 20:00 02/21/25 08:00 Temperature 96.5 F L 96.9 F Pulse Rate 103 H 102 H 87 Respiratory Rate 16 Blood Pressure 130/80 146/83 H 132/89 Pulse Oximetry 97 97 Oxygen Delivery Method Room Air Room Air 02/21/25 14:36 Temperature Pulse Rate 78 Respiratory Rate Blood Pressure 142/78 H Pulse Oximetry Oxygen Delivery Method BMI result Body Mass Index 31.9 Labs 01/29/25 23:58 01/29/25 23:58 Medications Medications Current Medications Acetaminophen (Acetaminophen 325 Mg Tablet) 650 mg PO Q6H PRN PRN Reason: Headache/Pain, Scale 1-10 Last Admin: 02/19/25 20:49 Dose: 650 mg Al Hydroxide/Mg Hydroxide (Magnesium Hydrox/Alum Hydrox 30 Ml Oral.Susp) 30 ml PO Q6H PRN PRN Reason: Heartburn/Nausea Amphetamine/Dextroamphetamine (Amphetamine Mixed Salts 10 Mg Tablet) 30 mg PO DAILY@1200 [facility] Last Admin: 02/21/25 11:50 Dose: 30 mg Amphetamine/Dextroamphetamine (Dextroamphetamine/Amphetamine Xr 10 Mg Cap.Er.24h) 30 mg PO DAILY [facility] Last Admin: 02/21/25 08:23 Dose: 30 mg Diazepam (Diazepam 5 Mg Tablet) 10 mg PO TID PRN PRN Reason: severe anxiety Last Admin: 02/20/25 21:00 Dose: 10 mg Diphenhydramine HCl (Diphenhydramine Hcl 25 Mg Capsule) 25 mg PO BID PRN PRN Reason: Anxiety Last Admin: 02/19/25 20:49 Dose: 25 mg Duloxetine HCl (Duloxetine Hcl 30 Mg Capsule.Dr) 30 mg PO BIDWM [facility] Last Admin: 02/21/25 08:23 Dose: 30 mg Folic Acid (Folic Acid 1 Mg Tablet) 1 mg PO DAILY [facility] Last Admin: 02/21/25 08:23 Dose: 1 mg Hydroxyzine HCl (Hydroxyzine Hcl 25 Mg Tablet) 25 mg PO Q6H PRN PRN Reason: mild anxiety Last Admin: 02/20/25 20:59 Dose: 25 mg Magnesium Hydroxide (Milk Of Magnesia 30 Ml Oral.Susp) 30 ml PO DAILY PRN PRN Reason: Constipation Nicotine Polacrilex (Nicotine Polacrilex 2 Mg Gum) 4 mg BUCCAL Q2H PRN PRN Reason: Nicotine Cravings Olanzapine (Olanzapine 10 Mg Tablet) 10 mg PO BID [facility] Last Admin: 02/21/25 08:23 Dose: 10 mg Propranolol HCl (Propranolol Hcl 20 Mg Tablet) 20 mg PO TID [facility]; Protocol Last Admin: 02/21/25 14:36 Dose: 20 mg Thiamine HCl (Thiamine Hcl 100 Mg Tablet) 100 mg PO DAILY [facility] Last Admin: 02/21/25 08:23 Dose: 100 mg Trazodone HCl (Trazodone Hcl 50 Mg Tablet) 50 mg PO BEDTIME MRX1 PRN PRN Reason: Insomnia Last Admin: 02/20/25 22:23 Dose: 50 mg Allergies Allergies Allergy/AdvReac Type Severity Reaction Status Date / Time gluten AdvReac Gastrointestinal Verified 01/30/25 06:48 Upset lithium AdvReac Unknown Verified 01/30/25 06:48 wheat AdvReac Gastrointestinal Verified 01/30/25 06:48 Upset Assessment & Plan Assessment & Plan (1) Bipolar disorder with psychotic features: Status: Acute Code(s): F31.9 - Bipolar disorder, unspecified (2) PTSD (post-traumatic stress disorder): Status: Acute Code(s): F43.10 - Post-traumatic stress disorder, unspecified Plan Admit, CV, 15 minute checks Collateral contact Help pt reconnect to OP resources and with her community again Medication assessement-continue current regime at this time Diagnostics as needed Encourage full milieu Discharge planning 02/01/25- Increase Valium prn to TID (dosing pt uses at home) Thiamine 100 mg daily (B12 level 196) Folic Acid 1 mg daily (Folic Acid level 3.4) 02/02 pt says she's fair... and trying to rest after dealing with distressing news dealing with this past week. Pt's valium recently increased; she's trying to use less than offered. 02/03 same presentation; continue treatment plan 02/04 continue tx 02/05 continue tx 02/06 Waiting to hear from the children's guardian so she may customize her plan to favor having custody of her children returned. 02/08 Continue regime/tx Meeting with patrol conductor 02/13/25. 02/11 Continue tx 02/13 Continue tx 02/14: Moderate anxiety and depression related to custody patel with the their 2 daughters. Mood continues to improve. No SI/HI/AH/VH. Continue current treatment regimen. 02/15: Continue tx. Pt will meet again with children's patrol conductor next week. Continue to monitor given new information she has received today. 02/16: Continue current management and treatment plan. 02/17: Continue current management and treatment plan. Instill hope and educate about children's resilience in face of adversity. 02/18: Continue tx. Angélica appears to be gaining more confidence with community supports allowing her to be more actively involved in her children's custody case. 02/19: Continue tx. DC Planning 02/20: Continue tx 02/21: DC planning Reason for continued inpatient stay Substantial Risk for: rapid decompensation Time Spent With Patient Time: Total time managing care of this patient today ____ minutes.
[2025-02-21 19:51] VITALS: BP 143/89; PULSE 96; TEMP 36.6; O2SAT 98
[2025-02-22 08:00] VITALS: BP 128/77; PULSE 100; RESP 18; TEMP 35.9; O2SAT 96
[2025-02-22 09:02] VITALS: BP 128/77; PULSE 100
[2025-02-22] MEDS: Dextroamphetamine/Amphetamine XR 10 MG CAP.ER.24H 30 MG PO (09:02)
[2025-02-22] MEDS: Amphetamine Mixed Salts 10 MG TABLET 30 MG PO (11:01)
[2025-02-22 14:08] VITALS: BP 144/83; PULSE 110
--- NOTE | 2025-02-22 17:57 | P.PNPSI_ITS ---
Subjective Subjective Date of Service: 02/22/25 Reason For Visit: PTSD, Bipolar disorder with psychosis Subjective Notes: Conditional Voluntary Healthcare Proxy: No Guardianship: No Medical Problems Affecting Mental Status: No Interim History: Medical record and nursing notes reviewed; case discussed during rounds with team/nursing staff, and met with patient for supportive therapy/psychoeducation, as well as medication management. Patient slept for 8 hours, was medication compliant, in and out of her. Reports situational anxiety. She shared a story regarding her SI, and family issues. 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 Patient do not want medication change as has been working fine. Reports sleep and appetite has been good. Denies safety concerns. Reports that she has p.r.n. Valium to take as needed. Medication Compliance: Yes Side effects from medications: No Attending Groups: Intermittent Review of Systems Acute medical concerns: No Medical Review of Systems: unchanged Review of Systems Review of Systems Denies Yes all other systems are reviewed and are negative Mental Status Exam Mental Status Exam Patient Appearance: Appropriate Patient Orientation: Person, Place, Time and Situation Level of Consciousness: Alert Patient Behavior: Appropriate, Talkative, Cooperative and Good Eye Contact Mood Description: Apprehensive Affect Description: Apprehensive Patient Cognition Impaired: No Ability to Follow Directions: Good Speech Pattern: Spontaneous Speech Memory Description: Intact and Episodic Impaired Hallucinations: None Delusions: Not Present Perceptual Disturbances: Depersonalization and Derealization Thought Process: Rumination Thought Content: positive for Circumstantial, positive for Perseveration and positive for Suicidal Ideation (denies) Depressive Symptoms: Thoughts of /Suicide (denies) Judgement: Fair Diagnostics Vital Signs (24Hr): Vital Signs - 24 hr 02/21/25 19:51 02/22/25 08:00 02/22/25 09:02 Temperature 97.9 F 96.7 F L Pulse Rate 96 100 100 Respiratory Rate 18 Blood Pressure 143/89 H 128/77 128/77 Pulse Oximetry 98 96 Oxygen Delivery Method Room Air Room Air 02/22/25 14:08 Temperature Pulse Rate 110 H Respiratory Rate Blood Pressure 144/83 H Pulse Oximetry Oxygen Delivery Method BMI result Body Mass Index 32.1 Labs 01/29/25 23:58 01/29/25 23:58 Medications Medications Current Medications Acetaminophen (Acetaminophen 325 Mg Tablet) 650 mg PO Q6H PRN PRN Reason: Headache/Pain, Scale 1-10 Last Admin: 02/19/25 20:49 Dose: 650 mg Al Hydroxide/Mg Hydroxide (Magnesium Hydrox/Alum Hydrox 30 Ml Oral.Susp) 30 ml PO Q6H PRN PRN Reason: Heartburn/Nausea Amphetamine/Dextroamphetamine (Amphetamine Mixed Salts 10 Mg Tablet) 30 mg PO DAILY@1200 [facility] Last Admin: 02/22/25 11:01 Dose: 30 mg Amphetamine/Dextroamphetamine (Dextroamphetamine/Amphetamine Xr 10 Mg Cap.Er.24h) 30 mg PO DAILY [facility] Last Admin: 02/22/25 09:02 Dose: 30 mg Diazepam (Diazepam 5 Mg Tablet) 10 mg PO TID PRN PRN Reason: severe anxiety Last Admin: 02/22/25 14:08 Dose: 10 mg Diphenhydramine HCl (Diphenhydramine Hcl 25 Mg Capsule) 25 mg PO BID PRN PRN Reason: Anxiety Last Admin: 02/19/25 20:49 Dose: 25 mg Duloxetine HCl (Duloxetine Hcl 30 Mg Capsule.Dr) 30 mg PO BIDWM [facility] Last Admin: 02/22/25 16:13 Dose: 30 mg Folic Acid (Folic Acid 1 Mg Tablet) 1 mg PO DAILY [facility] Last Admin: 02/22/25 09:03 Dose: 1 mg Hydroxyzine HCl (Hydroxyzine Hcl 25 Mg Tablet) 25 mg PO Q6H PRN PRN Reason: mild anxiety Last Admin: 02/21/25 20:40 Dose: 25 mg Magnesium Hydroxide (Milk Of Magnesia 30 Ml Oral.Susp) 30 ml PO DAILY PRN PRN Reason: Constipation Nicotine Polacrilex (Nicotine Polacrilex 2 Mg Gum) 4 mg BUCCAL Q2H PRN PRN Reason: Nicotine Cravings Olanzapine (Olanzapine 10 Mg Tablet) 10 mg PO BID [facility] Last Admin: 02/22/25 09:03 Dose: 10 mg Propranolol HCl (Propranolol Hcl 20 Mg Tablet) 20 mg PO TID [facility]; Protocol Last Admin: 02/22/25 14:08 Dose: 20 mg Thiamine HCl (Thiamine Hcl 100 Mg Tablet) 100 mg PO DAILY [facility] Last Admin: 02/22/25 09:03 Dose: 100 mg Trazodone HCl (Trazodone Hcl 50 Mg Tablet) 50 mg PO BEDTIME MRX1 PRN PRN Reason: Insomnia Last Admin: 02/21/25 20:40 Dose: 50 mg Allergies Allergies Allergy/AdvReac Type Severity Reaction Status Date / Time gluten AdvReac Gastrointestinal Verified 01/30/25 06:48 Upset lithium AdvReac Unknown Verified 01/30/25 06:48 wheat AdvReac Gastrointestinal Verified 01/30/25 06:48 Upset Assessment & Plan Assessment & Plan (1) Bipolar disorder with psychotic features: Status: Acute Code(s): F31.9 - Bipolar disorder, unspecified (2) PTSD (post-traumatic stress disorder): Status: Acute Code(s): F43.10 - Post-traumatic stress disorder, unspecified Plan Admit, CV, 15 minute checks Collateral contact Help pt reconnect to OP resources and with her community again Medication assessement-continue current regime at this time Diagnostics as needed Encourage full milieu Discharge planning 02/01/25- Increase Valium prn to TID (dosing pt uses at home) Thiamine 100 mg daily (B12 level 196) Folic Acid 1 mg daily (Folic Acid level 3.4) 02/02 pt says she's fair... and trying to rest after dealing with distressing news dealing with this past week. Pt's valium recently increased; she's trying to use less than offered. 02/03 same presentation; continue treatment plan 02/04 continue tx 02/05 continue tx 02/06 Waiting to hear from the children's guardian so she may customize her plan to favor having custody of her children returned. 02/08 Continue regime/tx Meeting with director of patient safety 02/13/25. 02/11 Continue tx 02/13 Continue tx 02/14: Moderate anxiety and depression related to custody patel with the their 2 daughters. Mood continues to improve. No SI/HI/AH/VH. Continue current treatment regimen. 02/15: Continue tx. Pt will meet again with children's director of patient safety next week. Continue to monitor given new information she has received today. 02/16: Continue current management and treatment plan. 02/17: Continue current management and treatment plan. Instill hope and educate about children's resilience in face of adversity. 02/18: Continue tx. Angélica appears to be gaining more confidence with community supports allowing her to be more actively involved in her children's custody case. 02/19: Continue tx. DC Planning 02/20: Continue tx 02/21: DC planning 02/22/25: Patient shared the case/situation that led to the hospitalization. Feeling like she did not have support from the family. But with time she feels better here. Denies suicidal thoughts other safety concerns. Reports situational anxiety which she takes as needed Valium one or twice a day. Intermittently visible. Sleep and appetite has been good. Patient educated on: diagnosis, medication risk/benefits and therapeutic strategies Informed Consent: understands Reason for continued inpatient stay Substantial Risk for: med/psych decompensation Time Spent With Patient Time: Total time managing care of this patient today ____ minutes.
[2025-02-22 20:00] VITALS: BP 139/85; PULSE 104; RESP 15; TEMP 36.1; O2SAT 97
[2025-02-23 08:30] VITALS: BP 139/71; PULSE 102; RESP 18; TEMP 36.2; O2SAT 97
[2025-02-23] MEDS: Dextroamphetamine/Amphetamine XR 10 MG CAP.ER.24H 30 MG PO (08:35)
[2025-02-23] MEDS: Amphetamine Mixed Salts 10 MG TABLET 30 MG PO (11:00)
[2025-02-23 15:59] VITALS: BP 135/87; PULSE 100
[2025-02-23 20:00] VITALS: BP 126/70; PULSE 103; RESP 15; TEMP 35.6; O2SAT 96
--- NOTE | 2025-02-23 20:25 | P.PNPSI_ITS ---
Subjective Subjective Date of Service: 02/23/25 Reason For Visit: PTSD, Bipolar disorder with psychosis Subjective Notes: Conditional Voluntary Healthcare Proxy: No Guardianship: No Medical Problems Affecting Mental Status: No Interim History: Medical record and nursing notes reviewed; case discussed during rounds with team/nursing staff, and met with patient for supportive therapy/psychoeducation, as well as medication management. Patient slept well, medication compliant. Denies side effects. Denies safety concerns. However reports having suicidal thoughts yesterday after talking to the surveillance specialist is cross my mind . Denies plan or intention. For high in anxiety. Per nursing, patient is not allowed to use phone issues than number regular phone call until Tuesday. Patient also as if she is allowed to go to the prison. Complain about wound that smell, but does no drainage, or odor. Medication Compliance: Yes Side effects from medications: No Attending Groups: Intermittent Review of Systems Acute medical concerns: No Medical Review of Systems: unchanged Review of Systems Review of Systems Denies Yes all other systems are reviewed and are negative Mental Status Exam Mental Status Exam Patient Appearance: Appropriate Patient Orientation: Person, Place, Time and Situation Level of Consciousness: Alert Patient Behavior: Appropriate, Talkative, Cooperative and Good Eye Contact Mood Description: Apprehensive Affect Description: Apprehensive Patient Cognition Impaired: No Ability to Follow Directions: Good Speech Pattern: Spontaneous Speech Memory Description: Intact and Episodic Impaired Hallucinations: None Delusions: Not Present Perceptual Disturbances: Depersonalization and Derealization Thought Process: Rumination Thought Content: positive for Circumstantial, positive for Perseveration and positive for Suicidal Ideation (denies at the assessment time but report passive SI yesterday after talking to the [employer]) Depressive Symptoms: Thoughts of /Suicide (denies) Judgement: Fair Diagnostics Vital Signs (24Hr): Vital Signs - 24 hr 02/23/25 08:30 02/23/25 15:59 02/23/25 20:00 Temperature 97.1 F 96.1 F L Pulse Rate 102 H 100 103 H Respiratory Rate 18 15 Blood Pressure 139/71 135/87 126/70 Pulse Oximetry 97 96 Oxygen Delivery Method Room Air BMI result Body Mass Index 32.1 Labs 01/29/25 23:58 01/29/25 23:58 Medications Medications Current Medications Acetaminophen (Acetaminophen 325 Mg Tablet) 650 mg PO Q6H PRN PRN Reason: Headache/Pain, Scale 1-10 Last Admin: 02/22/25 21:45 Dose: 650 mg Al Hydroxide/Mg Hydroxide (Magnesium Hydrox/Alum Hydrox 30 Ml Oral.Susp) 30 ml PO Q6H PRN PRN Reason: Heartburn/Nausea Amphetamine/Dextroamphetamine (Amphetamine Mixed Salts 10 Mg Tablet) 30 mg PO DAILY@1200 [facility] Last Admin: 02/23/25 11:00 Dose: 30 mg Amphetamine/Dextroamphetamine (Dextroamphetamine/Amphetamine Xr 10 Mg Cap.Er.24h) 30 mg PO DAILY [facility] Last Admin: 02/23/25 08:35 Dose: 30 mg Diazepam (Diazepam 5 Mg Tablet) 10 mg PO TID PRN PRN Reason: severe anxiety Last Admin: 02/23/25 17:51 Dose: 10 mg Diphenhydramine HCl (Diphenhydramine Hcl 25 Mg Capsule) 25 mg PO BID PRN PRN Reason: Anxiety Last Admin: 02/22/25 21:45 Dose: 25 mg Duloxetine HCl (Duloxetine Hcl 30 Mg Capsule.Dr) 30 mg PO BIDWM [facility] Last Admin: 02/23/25 17:14 Dose: 30 mg Folic Acid (Folic Acid 1 Mg Tablet) 1 mg PO DAILY [facility] Last Admin: 02/23/25 08:35 Dose: 1 mg Hydroxyzine HCl (Hydroxyzine Hcl 25 Mg Tablet) 25 mg PO Q6H PRN PRN Reason: mild anxiety Last Admin: 02/21/25 20:40 Dose: 25 mg Magnesium Hydroxide (Milk Of Magnesia 30 Ml Oral.Susp) 30 ml PO DAILY PRN PRN Reason: Constipation Nicotine Polacrilex (Nicotine Polacrilex 2 Mg Gum) 4 mg BUCCAL Q2H PRN PRN Reason: Nicotine Cravings Olanzapine (Olanzapine 10 Mg Tablet) 10 mg PO BID [facility] Last Admin: 02/23/25 08:35 Dose: 10 mg Propranolol HCl (Propranolol Hcl 20 Mg Tablet) 20 mg PO TID [facility]; Protocol Last Admin: 02/23/25 15:59 Dose: 20 mg Thiamine HCl (Thiamine Hcl 100 Mg Tablet) 100 mg PO DAILY [facility] Last Admin: 02/23/25 08:35 Dose: 100 mg Trazodone HCl (Trazodone Hcl 50 Mg Tablet) 50 mg PO BEDTIME MRX1 PRN PRN Reason: Insomnia Last Admin: 02/22/25 21:45 Dose: 50 mg Allergies Allergies Allergy/AdvReac Type Severity Reaction Status Date / Time gluten AdvReac Gastrointestinal Verified 01/30/25 06:48 Upset lithium AdvReac Unknown Verified 01/30/25 06:48 wheat AdvReac Gastrointestinal Verified 01/30/25 06:48 Upset Assessment & Plan Assessment & Plan (1) Bipolar disorder with psychotic features: Status: Acute Code(s): F31.9 - Bipolar disorder, unspecified (2) PTSD (post-traumatic stress disorder): Status: Acute Code(s): F43.10 - Post-traumatic stress disorder, unspecified Plan Admit, CV, 15 minute checks Collateral contact Help pt reconnect to OP resources and with her community again Medication assessement-continue current regime at this time Diagnostics as needed Encourage full milieu Discharge planning 02/01/25- Increase Valium prn to TID (dosing pt uses at home) Thiamine 100 mg daily (B12 level 196) Folic Acid 1 mg daily (Folic Acid level 3.4) 02/02 pt says she's fair... and trying to rest after dealing with distressing news dealing with this past week. Pt's valium recently increased; she's trying to use less than offered. 02/03 same presentation; continue treatment plan 02/04 continue tx 02/05 continue tx 02/06 Waiting to hear from the children's guardian so she may customize her plan to favor having custody of her children returned. 02/08 Continue regime/tx Meeting with airport security screener 02/13/25. 02/11 Continue tx 02/13 Continue tx 02/14: Moderate anxiety and depression related to custody patel with the their 2 daughters. Mood continues to improve. No SI/HI/AH/VH. Continue current treatment regimen. 02/15: Continue tx. Pt will meet again with children's airport security screener next week. Continue to monitor given new information she has received today. 02/16: Continue current management and treatment plan. 02/17: Continue current management and treatment plan. Instill hope and educate about children's resilience in face of adversity. 02/18: Continue tx. Angélica appears to be gaining more confidence with community supports allowing her to be more actively involved in her children's custody case. 02/19: Continue tx. DC Planning 02/20: Continue tx 02/21: DC planning 02/22/25: Patient shared the case/situation that led to the hospitalization. Feeling like she did not have support from the family. But with time she feels better here. Denies suicidal thoughts other safety concerns. Reports situational anxiety which she takes as needed Valium one or twice a day. Intermittently visible. Sleep and appetite has been good. 02/23/25: Patient slept well, medication compliant. Denies side effects. Denies safety concerns. However reports having suicidal thoughts yesterday after talking to the surveillance specialist is cross my mind . Denies plan or intention. For high in anxiety. Per nursing, patient is not allowed to use phone issues than number regular phone call until Tuesday. Patient also as if she is allowed to go to the prison. Complain about wound that smell, but does no drainage, or odor. Continue with current plan. Patient educated on: diagnosis, medication risk/benefits and therapeutic strategies Informed Consent: understands Reason for continued inpatient stay Substantial Risk for: med/psych decompensation Time Spent With Patient Time: Total time managing care of this patient today ____ minutes.
[2025-02-24 08:00] VITALS: BP 136/83; PULSE 102; RESP 16; TEMP 36.4; O2SAT 96
[2025-02-24] MEDS: Dextroamphetamine/Amphetamine XR 10 MG CAP.ER.24H 30 MG PO (08:26)
[2025-02-24] MEDS: Amphetamine Mixed Salts 10 MG TABLET 30 MG PO (11:00)
[2025-02-24 15:08] VITALS: BP 140/84; PULSE 105
[2025-02-24 20:00] VITALS: BP 140/66; PULSE 103; RESP 15; TEMP 35.6; O2SAT 96
--- NOTE | 2025-02-24 23:06 | HO.PSYCHPN ---
Subjective Subjective Date of Service: 02/24/25 Reason For Visit: PTSD, Bipolar disorder with psychosis Subjective Notes: Conditional Voluntary Healthcare Proxy: No Guardianship: No Medical Problems Affecting Mental Status: No Interim History: Medical record and nursing notes reviewed; case discussed during rounds with team/nursing staff, and met with patient for supportive therapy/psychoeducation, as well as medication management. Slept for 8 hours, compliant with medications. Denies side effects. Intermittently having passive SI, no plan no intention. Denies SI during assessment. Denies hallucinations. Mood is overall okay/good , rated anxiety and depression an /. Valium p.r.n. is helpful. Visible at times, attempted groups. Medication Compliance: Yes Side effects from medications: No Attending Groups: Yes Review of Systems Acute medical concerns: No Medical Review of Systems: unchanged Review of Systems Review of Systems Denies Yes all other systems are reviewed and are negative Mental Status Exam Mental Status Exam Patient Appearance: Appropriate Patient Orientation: Person, Place, Time and Situation Level of Consciousness: Alert Patient Behavior: Appropriate, Talkative, Cooperative and Good Eye Contact Mood Description: Apprehensive Affect Description: Apprehensive Patient Cognition Impaired: No Ability to Follow Directions: Good Speech Pattern: Spontaneous Speech Memory Description: Intact and Episodic Impaired Hallucinations: None Delusions: Not Present Perceptual Disturbances: Depersonalization and Derealization Thought Process: Rumination Thought Content: positive for Circumstantial, positive for Perseveration and positive for Suicidal Ideation (denies at the assessment time but report passive SI yesterday after talking to the Review Manager) Depressive Symptoms: Thoughts of /Suicide (denies) Judgement: Fair Diagnostics Vital Signs (24Hr): Vital Signs - 24 hr 02/24/25 08:00 02/24/25 15:08 02/24/25 20:00 Temperature 97.6 F 96.1 F L Pulse Rate 102 H 105 H 103 H Respiratory Rate 16 15 Blood Pressure 136/83 140/84 H 140/66 H Pulse Oximetry 96 96 BMI result Body Mass Index 32.1 Labs 01/29/25 23:58 01/29/25 23:58 Medications Medications Current Medications Acetaminophen (Acetaminophen 325 Mg Tablet) 650 mg PO Q6H PRN PRN Reason: Headache/Pain, Scale 1-10 Last Admin: 02/24/25 20:20 Dose: 650 mg Al Hydroxide/Mg Hydroxide (Magnesium Hydrox/Alum Hydrox 30 Ml Oral.Susp) 30 ml PO Q6H PRN PRN Reason: Heartburn/Nausea Amphetamine/Dextroamphetamine (Amphetamine Mixed Salts 10 Mg Tablet) 30 mg PO DAILY@1200 [facility] Last Admin: 02/24/25 11:00 Dose: 30 mg Amphetamine/Dextroamphetamine (Dextroamphetamine/Amphetamine Xr 10 Mg Cap.Er.24h) 30 mg PO DAILY [facility] Last Admin: 02/24/25 08:26 Dose: 30 mg Diazepam (Diazepam 5 Mg Tablet) 10 mg PO TID PRN PRN Reason: severe anxiety Last Admin: 02/24/25 20:20 Dose: 10 mg Diphenhydramine HCl (Diphenhydramine Hcl 25 Mg Capsule) 25 mg PO BID PRN PRN Reason: Anxiety Last Admin: 02/24/25 20:21 Dose: 25 mg Duloxetine HCl (Duloxetine Hcl 30 Mg Capsule.Dr) 30 mg PO BIDWM [facility] Last Admin: 02/24/25 16:58 Dose: 30 mg Folic Acid (Folic Acid 1 Mg Tablet) 1 mg PO DAILY [facility] Last Admin: 02/24/25 08:26 Dose: 1 mg Hydroxyzine HCl (Hydroxyzine Hcl 25 Mg Tablet) 25 mg PO Q6H PRN PRN Reason: mild anxiety Last Admin: 02/21/25 20:40 Dose: 25 mg Magnesium Hydroxide (Milk Of Magnesia 30 Ml Oral.Susp) 30 ml PO DAILY PRN PRN Reason: Constipation Nicotine Polacrilex (Nicotine Polacrilex 2 Mg Gum) 4 mg BUCCAL Q2H PRN PRN Reason: Nicotine Cravings Olanzapine (Olanzapine 10 Mg Tablet) 10 mg PO BID [facility] Last Admin: 02/24/25 20:21 Dose: 10 mg Propranolol HCl (Propranolol Hcl 20 Mg Tablet) 20 mg PO TID [facility]; Protocol Last Admin: 02/24/25 20:20 Dose: 20 mg Thiamine HCl (Thiamine Hcl 100 Mg Tablet) 100 mg PO DAILY [facility] Last Admin: 02/24/25 08:26 Dose: 100 mg Trazodone HCl (Trazodone Hcl 50 Mg Tablet) 50 mg PO BEDTIME MRX1 PRN PRN Reason: Insomnia Last Admin: 02/24/25 20:20 Dose: 50 mg Allergies Allergies Allergy/AdvReac Type Severity Reaction Status Date / Time gluten AdvReac Gastrointestinal Verified 01/30/25 06:48 Upset lithium AdvReac Unknown Verified 01/30/25 06:48 wheat AdvReac Gastrointestinal Verified 01/30/25 06:48 Upset Assessment & Plan Assessment & Plan (1) Bipolar disorder with psychotic features: Status: Acute Code(s): F31.9 - Bipolar disorder, unspecified (2) PTSD (post-traumatic stress disorder): Status: Acute Code(s): F43.10 - Post-traumatic stress disorder, unspecified Plan Admit, CV, 15 minute checks Collateral contact Help pt reconnect to OP resources and with her community again Medication assessement-continue current regime at this time Diagnostics as needed Encourage full milieu Discharge planning 02/01/25- Increase Valium prn to TID (dosing pt uses at home) Thiamine 100 mg daily (B12 level 196) Folic Acid 1 mg daily (Folic Acid level 3.4) 02/02 pt says she's fair... and trying to rest after dealing with distressing news dealing with this past week. Pt's valium recently increased; she's trying to use less than offered. 02/03 same presentation; continue treatment plan 02/04 continue tx 02/05 continue tx 02/06 Waiting to hear from the children's guardian so she may customize her plan to favor having custody of her children returned. 02/08 Continue regime/tx Meeting with global account manager 02/13/25. 02/11 Continue tx 02/13 Continue tx 02/14: Moderate anxiety and depression related to custody patel with the their 2 daughters. Mood continues to improve. No SI/HI/AH/VH. Continue current treatment regimen. 02/15: Continue tx. Pt will meet again with children's global account manager next week. Continue to monitor given new information she has received today. 02/16: Continue current management and treatment plan. 02/17: Continue current management and treatment plan. Instill hope and educate about children's resilience in face of adversity. 02/18: Continue tx. Angélica appears to be gaining more confidence with community supports allowing her to be more actively involved in her children's custody case. 02/19: Continue tx. DC Planning 02/20: Continue tx 02/21: DC planning 02/22/25: Patient shared the case/situation that led to the hospitalization. Feeling like she did not have support from the family. But with time she feels better here. Denies suicidal thoughts other safety concerns. Reports situational anxiety which she takes as needed Valium one or twice a day. Intermittently visible. Sleep and appetite has been good. 02/23/25: Patient slept well, medication compliant. Denies side effects. Denies safety concerns. However reports having suicidal thoughts yesterday after talking to the rental car ferry driver is cross my mind . Denies plan or intention. For high in anxiety. Per nursing, patient is not allowed to use phone issues than number regular phone call until Tuesday. Patient also as if she is allowed to go to the long term. Complain about wound that smell, but does no drainage, or odor. Continue with current plan. 02/24/25: Slept for 8 hours, compliant with medications. Denies side effects. Intermittently having passive SI, no plan no intention. Denies SI during assessment. Denies hallucinations. Mood is overall okay/good , rated anxiety and depression an 8/10. Valium p.r.n. is helpful. Visible at times, attempted groups. Reason for continued inpatient stay Substantial Risk for: med/psych decompensation Time Spent With Patient Time: Total time managing care of this patient today ____ minutes.
[2025-02-25 08:00] VITALS: BP 116/72; PULSE 93; RESP 18; TEMP 35.6; O2SAT 96
[2025-02-25 08:03] VITALS: BP 116/72; PULSE 93
[2025-02-25] MEDS: Dextroamphetamine/Amphetamine XR 10 MG CAP.ER.24H 30 MG PO (08:03)
--- NOTE | 2025-02-25 09:56 | HO.PSYCHPN ---
Subjective Subjective Date of Service: 02/25/25 Reason For Visit: PTSD, Bipolar disorder with psychosis Subjective Notes: Conditional Voluntary Healthcare Proxy: No Guardianship: No Medical Problems Affecting Mental Status: No Interim History: Team report passive SI, increase of depressive sx and withdrawal over the weekend. Met with pt who is prepared to discharge this week. She plans to stay one eveing at a hotel before going home. She will focus on gathering information for her court date which has been postponed for 60 days for custody. She will travel to [facility] [place] to meet with her commercial real estate attorney in the custody case this week. Denies SI,HI, AH,VH. States she is feeling hopeful that childrens paper box maker will help her to obtain visitation so she may work toward re-establishing full custody. She plans to return to therapy with Jennifer and meds with Rema with [facility]. Medication Compliance: Yes Side effects from medications: No Attending Groups: Intermittent Review of Systems Acute medical concerns: No Review of Systems Review of Systems Sore throat reported over the weekend. Denies sx today. Mental Status Exam Mental Status Exam Patient Appearance: Appropriate Patient Orientation: Person, Place, Time and Situation Level of Consciousness: Alert Patient Behavior: Talkative Mood Description: Flat Affect Description: Flat Patient Cognition Impaired: No Ability to Follow Directions: Good Speech Pattern: Spontaneous Speech Memory Description: Intact Hallucinations: None Delusions: Not Present Perceptual Disturbances: Depersonalization Thought Process: Goal Oriented Thought Content: positive for Goal Oriented and positive for Suicidal Ideation (denies) Depressive Symptoms: Thoughts of /Suicide (denies) Judgement: Good Diagnostics Vital Signs (24Hr): Vital Signs - 24 hr 02/24/25 15:08 02/24/25 20:00 02/25/25 08:00 Temperature 96.1 F L 96.0 F L Pulse Rate 105 H 103 H 93 Respiratory Rate 15 18 Blood Pressure 140/84 H 140/66 H 116/72 Pulse Oximetry 96 96 02/25/25 08:03 Temperature Pulse Rate 93 Respiratory Rate Blood Pressure 116/72 Pulse Oximetry BMI result Body Mass Index 32.1 Labs 01/29/25 23:58 01/29/25 23:58 Medications Medications Current Medications Acetaminophen (Acetaminophen 325 Mg Tablet) 650 mg PO Q6H PRN PRN Reason: Headache/Pain, Scale 1-10 Last Admin: 02/24/25 20:20 Dose: 650 mg Al Hydroxide/Mg Hydroxide (Magnesium Hydrox/Alum Hydrox 30 Ml Oral.Susp) 30 ml PO Q6H PRN PRN Reason: Heartburn/Nausea Amphetamine/Dextroamphetamine (Amphetamine Mixed Salts 10 Mg Tablet) 30 mg PO DAILY@1200 [facility] Last Admin: 02/24/25 11:00 Dose: 30 mg Amphetamine/Dextroamphetamine (Dextroamphetamine/Amphetamine Xr 10 Mg Cap.Er.24h) 30 mg PO DAILY [facility] Last Admin: 02/25/25 08:03 Dose: 30 mg Diazepam (Diazepam 5 Mg Tablet) 10 mg PO TID PRN PRN Reason: severe anxiety Last Admin: 02/24/25 20:20 Dose: 10 mg Diphenhydramine HCl (Diphenhydramine Hcl 25 Mg Capsule) 25 mg PO BID PRN PRN Reason: Anxiety Last Admin: 02/24/25 20:21 Dose: 25 mg Duloxetine HCl (Duloxetine Hcl 30 Mg Capsule.Dr) 30 mg PO BIDWM [facility] Last Admin: 02/25/25 08:03 Dose: 30 mg Folic Acid (Folic Acid 1 Mg Tablet) 1 mg PO DAILY [facility] Last Admin: 02/25/25 08:03 Dose: 1 mg Hydroxyzine HCl (Hydroxyzine Hcl 25 Mg Tablet) 25 mg PO Q6H PRN PRN Reason: mild anxiety Last Admin: 02/21/25 20:40 Dose: 25 mg Magnesium Hydroxide (Milk Of Magnesia 30 Ml Oral.Susp) 30 ml PO DAILY PRN PRN Reason: Constipation Nicotine Polacrilex (Nicotine Polacrilex 2 Mg Gum) 4 mg BUCCAL Q2H PRN PRN Reason: Nicotine Cravings Olanzapine (Olanzapine 10 Mg Tablet) 10 mg PO BID [facility] Last Admin: 02/25/25 08:04 Dose: 10 mg Propranolol HCl (Propranolol Hcl 20 Mg Tablet) 20 mg PO TID [facility]; Protocol Last Admin: 02/25/25 08:03 Dose: 20 mg Thiamine HCl (Thiamine Hcl 100 Mg Tablet) 100 mg PO DAILY [facility] Last Admin: 02/25/25 08:03 Dose: 100 mg Trazodone HCl (Trazodone Hcl 50 Mg Tablet) 50 mg PO BEDTIME MRX1 PRN PRN Reason: Insomnia Last Admin: 02/24/25 20:20 Dose: 50 mg Allergies Allergies Allergy/AdvReac Type Severity Reaction Status Date / Time gluten AdvReac Gastrointestinal Verified 01/30/25 06:48 Upset lithium AdvReac Unknown Verified 01/30/25 06:48 wheat AdvReac Gastrointestinal Verified 01/30/25 06:48 Upset Assessment & Plan Assessment & Plan (1) Bipolar disorder with psychotic features: Status: Acute Code(s): F31.9 - Bipolar disorder, unspecified (2) PTSD (post-traumatic stress disorder): Status: Acute Code(s): F43.10 - Post-traumatic stress disorder, unspecified Plan Admit, CV, 15 minute checks Collateral contact Help pt reconnect to OP resources and with her community again Medication assessement-continue current regime at this time Diagnostics as needed Encourage full milieu Discharge planning 02/01/25- Increase Valium prn to TID (dosing pt uses at home) Thiamine 100 mg daily (B12 level 196) Folic Acid 1 mg daily (Folic Acid level 3.4) 02/02 pt says she's fair... and trying to rest after dealing with distressing news dealing with this past week. Pt's valium recently increased; she's trying to use less than offered. 02/03 same presentation; continue treatment plan 02/04 continue tx 02/05 continue tx 02/06 Waiting to hear from the children's guardian so she may customize her plan to favor having custody of her children returned. 02/08 Continue regime/tx Meeting with paper box maker 02/13/25. 02/11 Continue tx 02/13 Continue tx 02/14: Moderate anxiety and depression related to custody patel with the their 2 daughters. Mood continues to improve. No SI/HI/AH/VH. Continue current treatment regimen. 02/15: Continue tx. Pt will meet again with children's paper box maker next week. Continue to monitor given new information she has received today. 02/16: Continue current management and treatment plan. 02/17: Continue current management and treatment plan. Instill hope and educate about children's resilience in face of adversity. 02/18: Continue tx. Angélica appears to be gaining more confidence with community supports allowing her to be more actively involved in her children's custody case. 02/19: Continue tx. DC Planning 02/20: Continue tx 02/21: DC planning 02/22/25: Patient shared the case/situation that led to the hospitalization. Feeling like she did not have support from the family. But with time she feels better here. Denies suicidal thoughts other safety concerns. Reports situational anxiety which she takes as needed Valium one or twice a day. Intermittently visible. Sleep and appetite has been good. 02/23/25: Patient slept well, medication compliant. Denies side effects. Denies safety concerns. However reports having suicidal thoughts yesterday after talking to the pediatric geneticist is cross my mind . Denies plan or intention. For high in anxiety. Per nursing, patient is not allowed to use phone issues than number regular phone call until Tuesday. Patient also as if she is allowed to go to the senior care. Complain about wound that smell, but does no drainage, or odor. Continue with current plan. 02/24/25: Slept for 8 hours, compliant with medications. Denies side effects. Intermittently having passive SI, no plan no intention. Denies SI during assessment. Denies hallucinations. Mood is overall okay/good , rated anxiety and depression an 03/03. Valium p.r.n. is helpful. Visible at times, attempted groups. 02/25: Continue tx. DC this week. Reason for continued inpatient stay Substantial Risk for: rapid decompensation Time Spent With Patient Time: Total time managing care of this patient today ____ minutes.
[2025-02-25] MEDS: Amphetamine Mixed Salts 10 MG TABLET 30 MG PO (11:01)
[2025-02-25 14:17] VITALS: BP 146/91; PULSE 110
[2025-02-25 19:42] VITALS: BP 135/76; PULSE 102; TEMP 36.9; O2SAT 97
--- NOTE | 2025-02-26 06:04 | P.PNPSI_ITS ---
Subjective Subjective Date of Service: 02/26/25 Reason For Visit: PTSD, Bipolar disorder with psychosis Subjective Notes: Conditional Voluntary Healthcare Proxy: No Guardianship: No Medical Problems Affecting Mental Status: No Interim History: Outlined her plan for discharge which is structured, goal oriented and practical. Discussed conflicts with parents, ex- and their actions against her. Reflects upon their rationale for their actions, stating, I just want to be with my children and be the best mother I can be. I am ready to move on from what they have done. Denies SI,HI,AH,VH Medication Compliance: Yes Side effects from medications: No Attending Groups: Yes Review of Systems Acute medical concerns: No Review of Systems Review of Systems Denies Mental Status Exam Mental Status Exam Patient Appearance: Appropriate Patient Orientation: Person, Place, Time and Situation Level of Consciousness: Alert Patient Behavior: Talkative Mood Description: Flat Affect Description: Flat Patient Cognition Impaired: No Ability to Follow Directions: Good Speech Pattern: Spontaneous Speech Memory Description: Intact Hallucinations: None Delusions: Not Present Perceptual Disturbances: Depersonalization Thought Process: Goal Oriented Thought Content: positive for Goal Oriented and positive for Suicidal Ideation (denies) Depressive Symptoms: Thoughts of /Suicide (denies) Judgement: Good Diagnostics Vital Signs (24Hr): Vital Signs - 24 hr 02/25/25 08:00 02/25/25 08:03 02/25/25 14:17 Temperature 96.0 F L Pulse Rate 93 93 110 H Respiratory Rate 18 Blood Pressure 116/72 116/72 146/91 H Pulse Oximetry 96 Oxygen Delivery Method 02/25/25 19:42 Temperature 98.5 F Pulse Rate 102 H Respiratory Rate Blood Pressure 135/76 Pulse Oximetry 97 Oxygen Delivery Method Room Air BMI result Body Mass Index 32.1 Labs 01/29/25 23:58 01/29/25 23:58 Medications Medications Current Medications Acetaminophen (Acetaminophen 325 Mg Tablet) 650 mg PO Q6H PRN PRN Reason: Headache/Pain, Scale 1-10 Last Admin: 02/24/25 20:20 Dose: 650 mg Al Hydroxide/Mg Hydroxide (Magnesium Hydrox/Alum Hydrox 30 Ml Oral.Susp) 30 ml PO Q6H PRN PRN Reason: Heartburn/Nausea Amphetamine/Dextroamphetamine (Amphetamine Mixed Salts 10 Mg Tablet) 30 mg PO DAILY@1200 [facility] Last Admin: 02/25/25 11:01 Dose: 30 mg Amphetamine/Dextroamphetamine (Dextroamphetamine/Amphetamine Xr 10 Mg Cap.Er.24h) 30 mg PO DAILY [facility] Last Admin: 02/25/25 08:03 Dose: 30 mg Diazepam (Diazepam 5 Mg Tablet) 10 mg PO TID PRN PRN Reason: severe anxiety Last Admin: 02/25/25 20:35 Dose: 10 mg Diphenhydramine HCl (Diphenhydramine Hcl 25 Mg Capsule) 25 mg PO BID PRN PRN Reason: Anxiety Last Admin: 02/24/25 20:21 Dose: 25 mg Duloxetine HCl (Duloxetine Hcl 30 Mg Capsule.Dr) 30 mg PO BIDWM [facility] Last Admin: 02/25/25 16:23 Dose: 30 mg Folic Acid (Folic Acid 1 Mg Tablet) 1 mg PO DAILY [facility] Last Admin: 02/25/25 08:03 Dose: 1 mg Hydroxyzine HCl (Hydroxyzine Hcl 25 Mg Tablet) 25 mg PO Q6H PRN PRN Reason: mild anxiety Last Admin: 02/25/25 20:36 Dose: 25 mg Magnesium Hydroxide (Milk Of Magnesia 30 Ml Oral.Susp) 30 ml PO DAILY PRN PRN Reason: Constipation Nicotine Polacrilex (Nicotine Polacrilex 2 Mg Gum) 4 mg BUCCAL Q2H PRN PRN Reason: Nicotine Cravings Olanzapine (Olanzapine 10 Mg Tablet) 10 mg PO BID [facility] Last Admin: 02/25/25 20:35 Dose: 10 mg Propranolol HCl (Propranolol Hcl 20 Mg Tablet) 20 mg PO TID [facility]; Protocol Last Admin: 02/25/25 20:36 Dose: 20 mg Thiamine HCl (Thiamine Hcl 100 Mg Tablet) 100 mg PO DAILY [facility] Last Admin: 02/25/25 08:03 Dose: 100 mg Trazodone HCl (Trazodone Hcl 50 Mg Tablet) 50 mg PO BEDTIME MRX1 PRN PRN Reason: Insomnia Last Admin: 02/25/25 20:36 Dose: 50 mg Allergies Allergies Allergy/AdvReac Type Severity Reaction Status Date / Time gluten AdvReac Gastrointestinal Verified 01/30/25 06:48 Upset lithium AdvReac Unknown Verified 01/30/25 06:48 wheat AdvReac Gastrointestinal Verified 01/30/25 06:48 Upset Assessment & Plan Assessment & Plan (1) Bipolar disorder with psychotic features: Status: Acute Code(s): F31.9 - Bipolar disorder, unspecified (2) PTSD (post-traumatic stress disorder): Status: Acute Code(s): F43.10 - Post-traumatic stress disorder, unspecified Plan Admit, CV, 15 minute checks Collateral contact Help pt reconnect to OP resources and with her community again Medication assessement-continue current regime at this time Diagnostics as needed Encourage full milieu Discharge planning 02/01/25- Increase Valium prn to TID (dosing pt uses at home) Thiamine 100 mg daily (B12 level 196) Folic Acid 1 mg daily (Folic Acid level 3.4) 02/02 pt says she's fair... and trying to rest after dealing with distressing news dealing with this past week. Pt's valium recently increased; she's trying to use less than offered. 02/03 same presentation; continue treatment plan 02/04 continue tx 02/05 continue tx 02/06 Waiting to hear from the children's guardian so she may customize her plan to favor having custody of her children returned. 02/08 Continue regime/tx Meeting with addressing machine operator 02/13/25. 02/11 Continue tx 02/13 Continue tx 02/14: Moderate anxiety and depression related to custody patel with the their 2 daughters. Mood continues to improve. No SI/HI/AH/VH. Continue current treatment regimen. 02/15: Continue tx. Pt will meet again with children's addressing machine operator next week. Continue to monitor given new information she has received today. 02/16: Continue current management and treatment plan. 02/17: Continue current management and treatment plan. Instill hope and educate about children's resilience in face of adversity. 02/18: Continue tx. Angélica appears to be gaining more confidence with community supports allowing her to be more actively involved in her children's custody case. 02/19: Continue tx. DC Planning 02/20: Continue tx 02/21: DC planning 02/22/25: Patient shared the case/situation that led to the hospitalization. Feeling like she did not have support from the family. But with time she feels better here. Denies suicidal thoughts other safety concerns. Reports situational anxiety which she takes as needed Valium one or twice a day. Intermittently visible. Sleep and appetite has been good. 02/23/25: Patient slept well, medication compliant. Denies side effects. Denies safety concerns. However reports having suicidal thoughts yesterday after talking to the assistant coach is cross my mind . Denies plan or intention. For high in anxiety. Per nursing, patient is not allowed to use phone issues than number regular phone call until Tuesday. Patient also as if she is allowed to go to the long-term. Complain about wound that smell, but does no drainage, or odor. Continue with current plan. 02/24/25: Slept for 8 hours, compliant with medications. Denies side effects. Intermittently having passive SI, no plan no intention. Denies SI during assessment. Denies hallucinations. Mood is overall okay/good , rated anxiety and depression an 03/03. Valium p.r.n. is helpful. Visible at times, attempted groups. 02/26: Preparing for discharge. Continue treatment. Will need prescriptions for Benadryl and Trazodone. Other meds she filled prior to admission and are in the [facility]. Reason for continued inpatient stay Substantial Risk for: rapid decompensation Time Spent With Patient Time: Total time managing care of this patient today ____ minutes.
[2025-02-26 08:00] VITALS: BP 142/73; PULSE 100; RESP 16; TEMP 36.1; O2SAT 98
[2025-02-26] MEDS: Dextroamphetamine/Amphetamine XR 10 MG CAP.ER.24H 30 MG PO (08:09)
[2025-02-26] MEDS: Amphetamine Mixed Salts 10 MG TABLET 30 MG PO (11:10)
[2025-02-26 14:55] VITALS: BP 139/91; PULSE 105
[2025-02-26 19:57] VITALS: BP 122/89; PULSE 106; RESP 18; TEMP 36.9; O2SAT 97
[2025-02-27 08:00] VITALS: BP 129/87; PULSE 94; TEMP 35.9; O2SAT 97
[2025-02-27 08:22] LABS: Hematocrit 35.8 % (37.0-47.0); Hemoglobin 11.3 g/dl (12.0-16.0); Mean Corpuscular HGB Conc 31.6 g/dl (31.0-35.0); Mean Corpuscular Hemoglobin 26.7 pg (27.0-33.0); Mean Corpuscular Volume 84.6 fL (80.0-98.0); NRBC Abs Auto 0.000 X10*3/uL (0.0-0.012); NRBC Pct Auto 0.0 /100WBC (0.0-0.2); Platelet Count 430 X10*3/uL (160-400); Red Blood Count 4.23 X10*6/uL (4.20-5.50); White Blood Count 8.2 X10*3/uL (4.8-10.8)
[2025-02-27] MEDS: Dextroamphetamine/Amphetamine XR 10 MG CAP.ER.24H 30 MG PO (08:28)
[2025-02-27 08:37] LABS: Alanine Aminotransferase 46 U/L (0-31); Albumin Level 3.9 g/dL (3.5-5.0); Alkaline Phosphatase 73 U/L (39-117); Anion Gap 10 (12-20); Aspartate Amino Transferase 29 U/L (5-31); Blood Urea Nitrogen 10 mg/dL (9-16); Calcium 8.4 mg/dL (8.4-10.2); Carbon Dioxide 27 mmol/L (22-29); Chloride 108 mmol/L (96-108); Creatinine Clr Calc Pharmacy 151.6; Estimated Glomerular Filt Rate > 60; Potassium 4.2 mmol/L (3.3-5.1); Sodium 141 mmol/L (135-145); Total Protein 6.6 g/dL (6.5-8.0)
[2025-02-27] MEDS: Amphetamine Mixed Salts 10 MG TABLET 30 MG PO (11:02)
--- NOTE | 2025-02-27 13:07 | P.PNPSI_ITS ---
Subjective Subjective Date of Service: 02/27/25 Reason For Visit: PTSD, Bipolar disorder with psychosis Subjective Notes: Conditional Voluntary Interim History: Patient notes that she is doing okay. She has been sleeping well. She reports moderate anxiety and depression. She denies SI/HI/AH/VH. She is ready for discharge tomorrow. Medication Compliance: Yes Side effects from medications: No Attending Groups: Intermittent Review of Systems Acute medical concerns: No Mental Status Exam Mental Status Exam Narrative: Appearance: Casually dressed, adequate hygiene Behavior: Calm and cooperative throughout the interview. Eye contact is appropriate, and there are no signs of psychomotor agitation or retardation Speech: Normal volume and prosody Thought process: logical and goal-directed Thought content: Future oriented no self-harming thoughts Mood: Euthymic Affect: Constricted SI:denies HI:denies VH/AH:none Delusions: None Insight/judgment: Good insight and judgment Memory/cog: Alert, oriented x 4. grossly intact to conversational testing Diagnostics Vital Signs (24Hr): Vital Signs - 24 hr 02/26/25 14:55 02/26/25 19:57 02/27/25 08:00 Temperature 98.5 F 96.7 F L Pulse Rate 105 H 106 H 94 Respiratory Rate 18 Blood Pressure 139/91 H 122/89 129/87 Pulse Oximetry 97 97 Oxygen Delivery Method Room Air Room Air BMI result Body Mass Index 32.1 Labs 02/27/25 07:44 02/27/25 07:44 Labs: Laboratory Results - last 48 hr 02/27/25 07:44 WBC 8.2 RBC 4.23 Hgb 11.3 L Hct 35.8 L MCV 84.6 MCH 26.7 L MCHC 31.6 RDW 15.8 Plt Count 430 H MPV 9.1 L Absolute Nucleated RBC 0.000 Nucleated RBC % (auto) 0.0 Sodium 141 Potassium 4.2 Chloride 108 Carbon Dioxide 27 Anion Gap 10 L BUN 10 Creatinine 0.61 Estim Creat Clear Calc 151.6 Estimated GFR > 60 Random Glucose 95 Calcium 8.4 D Total Bilirubin 0.2 AST 29 ALT 46 H Alkaline Phosphatase 73 Total Protein 6.6 Albumin 3.9 Medications Medications Current Medications Acetaminophen (Acetaminophen 325 Mg Tablet) 650 mg PO Q6H PRN PRN Reason: Headache/Pain, Scale 1-10 Last Admin: 02/24/25 20:20 Dose: 650 mg Al Hydroxide/Mg Hydroxide (Magnesium Hydrox/Alum Hydrox 30 Ml Oral.Susp) 30 ml PO Q6H PRN PRN Reason: Heartburn/Nausea Amphetamine/Dextroamphetamine (Amphetamine Mixed Salts 10 Mg Tablet) 30 mg PO DAILY@1200 [facility] Last Admin: 02/27/25 11:02 Dose: 30 mg Amphetamine/Dextroamphetamine (Dextroamphetamine/Amphetamine Xr 10 Mg Cap.Er.24h) 30 mg PO DAILY [facility] Last Admin: 02/27/25 08:28 Dose: 30 mg Diazepam (Diazepam 5 Mg Tablet) 10 mg PO TID PRN PRN Reason: severe anxiety Last Admin: 02/26/25 21:31 Dose: 10 mg Diphenhydramine HCl (Diphenhydramine Hcl 25 Mg Capsule) 25 mg PO BID PRN PRN Reason: Anxiety Last Admin: 02/26/25 21:32 Dose: 25 mg Duloxetine HCl (Duloxetine Hcl 30 Mg Capsule.Dr) 30 mg PO BIDWM [facility] Last Admin: 02/27/25 08:28 Dose: 30 mg Folic Acid (Folic Acid 1 Mg Tablet) 1 mg PO DAILY [facility] Last Admin: 02/27/25 08:28 Dose: 1 mg Hydroxyzine HCl (Hydroxyzine Hcl 25 Mg Tablet) 25 mg PO Q6H PRN PRN Reason: mild anxiety Last Admin: 02/26/25 21:31 Dose: 25 mg Magnesium Hydroxide (Milk Of Magnesia 30 Ml Oral.Susp) 30 ml PO DAILY PRN PRN Reason: Constipation Nicotine Polacrilex (Nicotine Polacrilex 2 Mg Gum) 4 mg BUCCAL Q2H PRN PRN Reason: Nicotine Cravings Olanzapine (Olanzapine 10 Mg Tablet) 10 mg PO BID [facility] Last Admin: 02/27/25 08:28 Dose: 10 mg Propranolol HCl (Propranolol Hcl 10 Mg Tablet) 30 mg PO TID [facility]; Protocol Last Admin: 02/27/25 08:28 Dose: 30 mg Thiamine HCl (Thiamine Hcl 100 Mg Tablet) 100 mg PO DAILY [facility] Last Admin: 02/27/25 08:28 Dose: 100 mg Trazodone HCl (Trazodone Hcl 50 Mg Tablet) 50 mg PO BEDTIME MRX1 PRN PRN Reason: Insomnia Last Admin: 02/26/25 21:31 Dose: 50 mg Allergies Allergies Allergy/AdvReac Type Severity Reaction Status Date / Time gluten AdvReac Gastrointestinal Verified 01/30/25 06:48 Upset lithium AdvReac Unknown Verified 01/30/25 06:48 wheat AdvReac Gastrointestinal Verified 01/30/25 06:48 Upset Assessment & Plan Assessment & Plan (1) Bipolar disorder with psychotic features: Status: Acute Code(s): F31.9 - Bipolar disorder, unspecified (2) PTSD (post-traumatic stress disorder): Status: Acute Code(s): F43.10 - Post-traumatic stress disorder, unspecified Plan Admit, CV, 15 minute checks Collateral contact Help pt reconnect to OP resources and with her community again Medication assessement-continue current regime at this time Diagnostics as needed Encourage full milieu Discharge planning 02/01/25- Increase Valium prn to TID (dosing pt uses at home) Thiamine 100 mg daily (B12 level 196) Folic Acid 1 mg daily (Folic Acid level 3.4) 02/02 pt says she's fair... and trying to rest after dealing with distressing news dealing with this past week. Pt's valium recently increased; she's trying to use less than offered. 02/03 same presentation; continue treatment plan 02/04 continue tx 02/05 continue tx 02/06 Waiting to hear from the children's guardian so she may customize her plan to favor having custody of her children returned. 02/08 Continue regime/tx Meeting with career resource specialist 02/13/25. 02/11 Continue tx 02/13 Continue tx 02/14: Moderate anxiety and depression related to custody patel with the their 2 daughters. Mood continues to improve. No SI/HI/AH/VH. Continue current treatment regimen. 02/15: Continue tx. Pt will meet again with children's career resource specialist next week. Continue to monitor given new information she has received today. 02/16: Continue current management and treatment plan. 02/17: Continue current management and treatment plan. Instill hope and educate about children's resilience in face of adversity. 02/18: Continue tx. Angélica appears to be gaining more confidence with community supports allowing her to be more actively involved in her children's custody case. 02/19: Continue tx. DC Planning 02/20: Continue tx 02/21: DC planning 02/22/25: Patient shared the case/situation that led to the hospitalization. Feeling like she did not have support from the family. But with time she feels better here. Denies suicidal thoughts other safety concerns. Reports situational anxiety which she takes as needed Valium one or twice a day. Intermittently visible. Sleep and appetite has been good. 02/23/25: Patient slept well, medication compliant. Denies side effects. Denies safety concerns. However reports having suicidal thoughts yesterday after talking to the brake lining driller is cross my mind . Denies plan or intention. For high in anxiety. Per nursing, patient is not allowed to use phone issues than number regular phone call until Tuesday. Patient also as if she is allowed to go to the long term. Complain about wound that smell, but does no drainage, or odor. Continue with current plan. 02/24/25: Slept for 8 hours, compliant with medications. Denies side effects. Intermittently having passive SI, no plan no intention. Denies SI during assessment. Denies hallucinations. Mood is overall okay/good , rated anxiety and depression an 03/03. Valium p.r.n. is helpful. Visible at times, attempted groups. 02/26: Preparing for discharge. Continue treatment. Will need prescriptions for Benadryl and Trazodone. Other meds she filled prior to admission and are in the [facility] safe. 02/27: Continue current treatment regimen. Discharge home on 02/28/25. Patient educated on: therapeutic strategies Reason for continued inpatient stay Substantial Risk for: rapid decompensation Time Spent With Patient Time: Total time managing care of this patient today ____ minutes.
[2025-02-27 15:25] VITALS: BP 136/79
[2025-02-27 20:00] VITALS: BP 126/79; PULSE 98; TEMP 36.2; O2SAT 97
[2025-02-27 20:17] VITALS: BP 126/79; PULSE 98
[2025-02-28 08:00] VITALS: BP 129/83; PULSE 96; RESP 18; TEMP 36.3; O2SAT 99
[2025-02-28] MEDS: Dextroamphetamine/Amphetamine XR 10 MG CAP.ER.24H 30 MG PO (08:10)
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
== END 2025-02-28 11:22 | disposition home or self-care (01) | DRG 885 ==
LOC: HO.ED 01-30 03:04 → HO.PM5 01-30 13:20
PROVIDERS: Admitting Provider Clinical Nurse Specialist Psychiatric/Mental Health, Adult; Emergency Provider Emergency Medicine; PCP Registered Nurse; Visit Provider Clinical Nurse Specialist Psychiatric/Mental Health, Adult
DX: F31.9 Bipolar disorder, unspecified (principal); R45.851 Suicidal ideations; F43.10 Post-traumatic stress disorder, unspecified; F90.9 Attention-deficit hyperactivity disorder, unspecified type; K90.0 Celiac disease; Z65.3 Problems related to other legal circumstances; Z79.899 Other long term (current) drug therapy
CPT/HCPCS: 36415; 80053; 80061; 80143; 80179; 80307; 81003; 81025; 82607; 82746; 83036; 83735; 84439; 84443; 85025; 85027; 93005; 99285; S9485

== ENCOUNTER → 2025-01-29 23:27 | Outpatient (BNV) | payer MEDICARE, MEDICAID, SELFPAY | PROVIDERS: Admitting Provider Clinical Nurse Specialist Psychiatric/Mental Health, Adult; Emergency Provider Emergency Medicine; PCP Registered Nurse; Visit Provider Internal Medicine Cardiovascular Disease | DX: R00.0 Tachycardia, unspecified (principal) | CPT/HCPCS: 93010 ==

== ENCOUNTER → 2025-01-30 12:13 | Outpatient (BNV) | payer MEDICARE, MEDICAID, SELFPAY | PROVIDERS: Admitting Provider Clinical Nurse Specialist Psychiatric/Mental Health, Adult; Emergency Provider Emergency Medicine; PCP Registered Nurse; Visit Provider Clinical Nurse Specialist Psychiatric/Mental Health, Adult | DX: F43.10 Post-traumatic stress disorder, unspecified (principal); F31.9 Bipolar disorder, unspecified | CPT/HCPCS: 90792 ==

== ENCOUNTER 2025-03-15 16:10 | Inpatient (IN) | payer OTHER, MEDICARE, MEDICAID, SELFPAY ==
[2025-03-15 16:19] VITALS: BP 140/89; PULSE 92; RESP 16; TEMP 36.7; O2SAT 97; BMI 30.1
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
--- OUTSIDE RECORDS SUMMARY | 2025-03-15 17:37 | XMS_ITS | Continuity of Care Document ---
Author Organization [facility] Address [address] [place] [address] [place] [id number] Phone [phone] Care Team Providers Care Business Continuity Analyst Name Role Phone KATHRINE LOPEZ M.D. Care Team Information Rec eiver Unavailable Social History Type Date Description Comments Sex Female Sex Unknown
[2025-03-15 18:09] LABS: MANUAL DIFF FLAG NO
[2025-03-15 18:11] LABS: Hematocrit 37.2 % (37.0-47.0); Hemoglobin 11.9 g/dl (12.0-16.0); Imm Gran Abs Auto 0.03 X10*3/uL (0.00-0.03); Imm Gran Pct Auto 0.4 % (0.0-0.4); Lymphocytes Absolute Auto 2.7 X10*3/uL (1.2-4.9); Mean Corpuscular HGB Conc 32.0 g/dl (31.0-35.0); Mean Corpuscular Hemoglobin 27.0 pg (27.0-33.0); Mean Corpuscular Volume 84.5 fL (80.0-98.0); NRBC Abs Auto 0.000 X10*3/uL (0.0-0.012); NRBC Pct Auto 0.0 /100WBC (0.0-0.2); Platelet Count 555 X10*3/uL (160-400); Red Blood Count 4.40 X10*6/uL (4.20-5.50); White Blood Count 7.9 X10*3/uL (4.8-10.8)
[2025-03-15 18:31] LABS: Alanine Aminotransferase 30 U/L (0-31); Albumin Level 4.5 g/dL (3.5-5.0); Alkaline Phosphatase 80 U/L (39-117); Anion Gap 13 (12-20); Aspartate Amino Transferase 29 U/L (5-31); Blood Urea Nitrogen 13 mg/dL (9-16); Calcium 9.0 mg/dL (8.4-10.2); Carbon Dioxide 26 mmol/L (22-29); Chloride 104 mmol/L (96-108); Creatinine Clr Calc Pharmacy 135.8; Estimated Glomerular Filt Rate > 60; Potassium 3.6 mmol/L (3.3-5.1); Sodium 139 mmol/L (135-145); Total Protein 7.5 g/dL (6.5-8.0)
[2025-03-15 18:40] LABS: Acetaminophen LAB < 3 mcg/mL (<30); Salicylate < 5.0 mg/dL (15-30)
[2025-03-15 18:52] LABS: Appearance Urine Clear; Glucose Urine UA Negative (Negative); PH 6.0 (5.0-9.0); Specific Gravity - Urine >= 1.030 (1.005-1.025); UMIC TRIGGER UA YES
[2025-03-15 18:53] LABS: UPreg QC Valid YES
[2025-03-15 18:58] LABS: Cannabinoid Screen Urine Not Detected (Not Detect)
[2025-03-15 19:11] LABS: COVID-19 Test Negative (Negative); IDNOW Serial# 58CA691E
[2025-03-15 19:48] VITALS: BP 140/89; PULSE 92
[2025-03-15] MEDS: Amphetamine Mixed Salts 10 MG TABLET 30 MG PO (19:48)
--- NOTE | 2025-03-15 21:15 | PC.NURSE ---
NatalieGAS AND OIL SERVICER at bedside adjusting medication administration times for Benadryl 25mg. This medication is to be administered at 7am, 12pm, 4pm, and 9pm daily. 25mg Benadryl per dose. On phone with pharmacy at this time to modify order.
[2025-03-15 22:00] VITALS: BP 154/92; PULSE 77; TEMP 36.8; O2SAT 98
[2025-03-15 23:06] VITALS: BMI 31.2
--- NOTE | 2025-03-16 00:01 | PC.ADMIT ---
Patient arrived on unit from [facility] via WC at 2145 having completed CV with diagnosis of decompensation. Known to Behavioral Health Unit from previous admissions most recently having been discharged in January 2025. Vital signs taken and WNL, Skin check also WNL other than a wound below left knee which appears to be healing obtained during a fall. Patient self presented to ED secondary to meeting with provider who felt she could benefit from IPLOC for medication evaluation and mood stabilization. Patient has upcoming court dates related to child custody and child support against ex which are causing increased stress. Patient is alert and oriented x4, calm and cooperative, good eye contact and hyperverbal speech. Patient is noted to be tangential and requires redirection back to question asked. Patient endorses anxiety and depression 8/10. Denies auditory and visual hallucinations and does not appear to be responding to internal stimuli. Thought content fixated on court case. Patient has outpatient providers through [facility] and continues to be engaged. Angélica participated in admission process; signed all AZUCENA's, treatment plan and safety tool. Personal belongings have been inventoried. Patient offered phone to retrieve numbers which she declined stating she was too tired and would like to go through phone at a later time.
[2025-03-16 08:07] VITALS: BP 117/67; PULSE 70; RESP 18; TEMP 36.6; O2SAT 96
[2025-03-16 08:22] LABS: Hemoglobin A1C 109.7307 umol/L; Total Hemoglobin (HGBA1C) 3101.7162 umol/L
[2025-03-16 08:45] LABS: Alanine Aminotransferase 24 U/L (0-31); Albumin Level 4.0 g/dL (3.5-5.0); Alkaline Phosphatase 73 U/L (39-117); Anion Gap 11 (12-20); Aspartate Amino Transferase 30 U/L (5-31); Blood Urea Nitrogen 8 mg/dL (9-16); Calcium 8.6 mg/dL (8.4-10.2); Carbon Dioxide 25 mmol/L (22-29); Chloride 107 mmol/L (96-108); Cholesterol 150 mg/dL (<200); Creatinine Clr Calc Pharmacy 136.2; Estimated Glomerular Filt Rate > 60; HDL Cholesterol 35 mg/dL (>40); Potassium 3.3 mmol/L (3.3-5.1); Sodium 140 mmol/L (135-145); Total Protein 6.6 g/dL (6.5-8.0); Triglycerides 180 mg/dL (<150)
[2025-03-16 08:52] LABS: Free T4 (Free Thyroxine) 0.89 ng/dL (0.71-1.85); Thyroid Stimulating Hormone 1.01 uIU/mL (0.32-4.0)
[2025-03-16] MEDS: Amphetamine Mixed Salts 10 MG TABLET 30 MG PO (09:05)
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
[2025-03-16] MEDS: Dextroamphetamine/Amphetamine XR 10 MG CAP.ER.24H 30 MG PO (12:03)
[2025-03-16 15:32] VITALS: BP 159/79; PULSE 84
[2025-03-16 20:00] VITALS: BP 126/69; PULSE 85; RESP 16; TEMP 36.9; O2SAT 96
[2025-03-16 22:17] VITALS: BP 140/81; PULSE 80
[2025-03-16] MEDS: OLANZapine ODT 10 MG TAB.RAPDIS TRANSLINGU (22:17)
[2025-03-17 08:00] VITALS: BP 114/68; PULSE 70; RESP 16; TEMP 36.6; O2SAT 98
[2025-03-17] MEDS: OLANZapine ODT 10 MG TAB.RAPDIS TRANSLINGU ×2 (08:42→20:37)
[2025-03-17] MEDS: Amphetamine Mixed Salts 10 MG TABLET 30 MG PO (08:42)
[2025-03-17] MEDS: Dextroamphetamine/Amphetamine XR 10 MG CAP.ER.24H 30 MG PO (11:46)
--- NOTE | 2025-03-17 13:28 | HO.PSYCHPN ---
Subjective Subjective Date of Service: 03/17/25 Reason For Visit: decompenstated, disorganized thoughts/tangetial Subjective Notes: Conditional Voluntary Healthcare Proxy: No Guardianship: No Medical Problems Affecting Mental Status: No Interim History: Pt reports a good night of sleep. She also has a decrease in perioral TD sx. She believes this is due to re-starting Olanzapine. Will continue to monitor She is beginning to connect in the milieu as well. She knows her room-mate and they have engaged in mutual support. Medication Compliance: Yes Side effects from medications: No Attending Groups: Intermittent Review of Systems Acute medical concerns: No Review of Systems Review of Systems Perioral TD appears to be resolving Mental Status Exam Mental Status Exam Patient Appearance: Appropriate Patient Orientation: Person, Place, Time and Situation Level of Consciousness: Alert Patient Behavior: Appropriate, Talkative, Cooperative and Good Eye Contact Mood Description: Depressed, Anxious and Apprehensive Affect Description: Anxious and Flat Patient Cognition Impaired: No Ability to Follow Directions: Good Speech Pattern: Spontaneous Speech Memory Description: Episodic Impaired Hallucinations: None Delusions: Not Present Perceptual Disturbances: Depersonalization and Derealization Thought Process: Goal Oriented Thought Content: positive for Goal Oriented Depressive Symptoms: Thoughts of /Suicide (denies) Judgement: Fair Diagnostics Vital Signs (24Hr): Vital Signs - 24 hr 03/16/25 15:32 03/16/25 20:00 03/16/25 22:17 Temperature 98.4 F Pulse Rate 84 85 80 Respiratory Rate 16 Blood Pressure 159/79 H 126/69 140/81 H Pulse Oximetry 96 Oxygen Delivery Method Room Air 03/17/25 08:00 Temperature 97.8 F Pulse Rate 70 Respiratory Rate 16 Blood Pressure 114/68 Pulse Oximetry 98 Oxygen Delivery Method Room Air BMI result Body Mass Index 31.2 Labs 03/15/25 17:57 03/16/25 07:54 Labs: Laboratory Results - last 48 hr 03/15/25 03/15/25 03/15/25 17:57 18:29 18:47 WBC 7.9 RBC 4.40 Hgb 11.9 L Hct 37.2 MCV 84.5 MCH 27.0 MCHC 32.0 RDW 15.6 Plt Count 555 H D MPV 9.2 L Immature Gran % (Auto) 0.4 Neut % (Auto) 52.5 Lymph % (Auto) 34.6 [place] % (Auto) 6.4 Eos % (Auto) 5.1 H Baso % (Auto) 1.0 Lymph # (Auto) 2.7 [place] # (Auto) 0.5 Eos # (Auto) 0.4 Baso # (Auto) 0.1 Abs Immat Gran (auto) 0.03 Absolute Neuts (auto) 4.1 Absolute Nucleated RBC 0.000 Nucleated RBC % (auto) 0.0 Sodium 139 Potassium 3.6 Chloride 104 Carbon Dioxide 26 Anion Gap 13 BUN 13 Creatinine 0.64 Estim Creat Clear Calc 135.8 Estimated GFR > 60 Random Glucose 96 Estimat Average Glucose Hemoglobin A1c % Calcium 9.0 D Total Bilirubin 0.2 AST 29 ALT 30 Alkaline Phosphatase 80 Total Protein 7.5 Albumin 4.5 Triglycerides Cholesterol LDL Cholesterol, Calc HDL Cholesterol TSH Free T4 Urine Color Yellow Urine Appearance Clear Urine pH 6.0 Ur Specific [place] >= 1.030 H Urine Protein 30 (1+) H Urine Glucose (UA) Negative Urine Ketones Trace Urine Blood Negative Urine Nitrite Negative Ur Leukocyte Esterase Small (1+) H Urine RBC 0-2 Urine WBC 11-20 H Ur Squamous Epith Cells 11-20 Urine Bacteria 2+ Hyaline Casts 0-2 Urine Test NEGATIVE Salicylates < 5.0 L Urine Opiates Screen Not Detected Ur Buprenorphine Scrn Not Detected Ur Oxycodone Screen Not Detected Urine Methadone Screen Not Detected Urine Fentanyl Screen Not Detected Acetaminophen < 3 Ur Barbiturates Screen Not Detected Ur Phencyclidine Scrn Not Detected Ur Amphetamines Screen POSITIVE H U Benzodiazepines Scrn POSITIVE H Urine Cocaine Screen Not Detected U Marijuana (THC) Screen Not Detected Ethyl Alcohol < 10 COVID-19 ([facility]) Negative COVID-19 Clin Com See Note 03/16/25 07:54 WBC RBC Hgb Hct MCV MCH MCHC RDW Plt Count MPV Immature Gran % (Auto) Neut % (Auto) Lymph % (Auto) [place] % (Auto) Eos % (Auto) Baso % (Auto) Lymph # (Auto) [place] # (Auto) Eos # (Auto) Baso # (Auto) Abs Immat Gran (auto) Absolute Neuts (auto) Absolute Nucleated RBC Nucleated RBC % (auto) Sodium 140 Potassium 3.3 Chloride 107 Carbon Dioxide 25 Anion Gap 11 L BUN 8 L Creatinine 0.67 Estim Creat Clear Calc 136.2 Estimated GFR > 60 Random Glucose 114 Estimat Average Glucose 108 Hemoglobin A1c % 5.4 Calcium 8.6 Total Bilirubin 0.4 AST 30 ALT 24 Alkaline Phosphatase 73 Total Protein 6.6 Albumin 4.0 Triglycerides 180 H Cholesterol 150 LDL Cholesterol, Calc 79 HDL Cholesterol 35 L TSH 1.01 Free T4 0.89 Urine Color Urine Appearance Urine pH Ur Specific [place] Urine Protein Urine Glucose (UA) Urine Ketones Urine Blood Urine Nitrite Ur Leukocyte Esterase Urine RBC Urine WBC Ur Squamous Epith Cells Urine Bacteria Hyaline Casts Urine Test Salicylates Urine Opiates Screen Ur Buprenorphine Scrn Ur Oxycodone Screen Urine Methadone Screen Urine Fentanyl Screen Acetaminophen Ur Barbiturates Screen Ur Phencyclidine Scrn Ur Amphetamines Screen U Benzodiazepines Scrn Urine Cocaine Screen U Marijuana (THC) Screen Ethyl Alcohol COVID-19 ([facility]) COVID-19 Clin Com Medications Medications Current Medications Acetaminophen (Acetaminophen 325 Mg Tablet) 650 mg PO Q6H PRN PRN Reason: Headache/Pain, Scale 1-10 Al Hydroxide/Mg Hydroxide (Magnesium Hydrox/Alum Hydrox 30 Ml Oral.Susp) 30 ml PO Q6H PRN PRN Reason: Heartburn/Nausea Amphetamine/Dextroamphetamine (Amphetamine Mixed Salts 10 Mg Tablet) 30 mg PO DAILY [facility] Last Admin: 03/17/25 08:42 Dose: 30 mg Amphetamine/Dextroamphetamine (Dextroamphetamine/Amphetamine Xr 10 Mg Cap.Er.24h) 30 mg PO DAILY@1200 [facility] Last Admin: 03/17/25 11:46 Dose: 30 mg Diazepam (Diazepam 5 Mg Tablet) 10 mg PO TID PRN PRN Reason: severe anxiety Last Admin: 03/16/25 22:17 Dose: 10 mg Diphenhydramine HCl (Diphenhydramine Hcl 25 Mg Capsule) 25 mg PO QID@0700,1200,1600,2100 [facility] Last Admin: 03/17/25 11:46 Dose: 25 mg Duloxetine HCl (Duloxetine Hcl 20 Mg Capsule.Dr) 40 mg PO BIDWM [facility] Last Admin: 03/17/25 08:42 Dose: 40 mg Epinephrine (Epinephrine 1 Mg/Ml Vial) 0.3 mg IM DAILY PRN PRN Reason: auto immune reaction Hydroxyzine HCl (Hydroxyzine Hcl 25 Mg Tablet) 25 mg PO Q6H PRN PRN Reason: mild anxiety Magnesium Hydroxide (Milk Of Magnesia 30 Ml Oral.Susp) 30 ml PO DAILY PRN PRN Reason: Constipation Nicotine (Nicotine 21 Mg Patch.Td24) 21 mg TRANSDERMA DAILY PRN PRN Reason: nicotine craving Nicotine Polacrilex (Nicotine Polacrilex 2 Mg Gum) 2 mg BUCCAL Q2H PRN PRN Reason: Nicotine Cravings Olanzapine (Olanzapine Odt 10 Mg Tab.Rapdis) 10 mg TRANSLINGU BID [facility] Last Admin: 03/17/25 08:42 Dose: 10 mg Olanzapine (Olanzapine 5 Mg Tablet) 5 mg PO Q4H PRN PRN Reason: anxiety Propranolol HCl (Propranolol Hcl 10 Mg Tablet) 30 mg PO TID [facility]; Protocol Last Admin: 03/17/25 08:42 Dose: 30 mg Trazodone HCl (Trazodone Hcl 50 Mg Tablet) 50 mg PO BEDTIME MRX1 PRN PRN Reason: Insomnia Allergies Allergies Allergy/AdvReac Type Severity Reaction Status Date / Time gluten AdvReac Gastrointestinal Verified 03/15/25 16:31 Upset lithium AdvReac Unknown Verified 03/15/25 16:31 wheat AdvReac Gastrointestinal Verified 03/15/25 16:31 Upset Assessment & Plan Assessment & Plan (1) PTSD (post-traumatic stress disorder): Status: Acute Code(s): F43.10 - Post-traumatic stress disorder, unspecified (2) Bipolar disorder with psychotic features: Status: Acute Code(s): F31.9 - Bipolar disorder, unspecified Plan 03/17: Continue med regime/eval of sx Reason for continued inpatient stay Substantial Risk for: rapid decompensation and med/psych decompensation Time Spent With Patient Time: Total time managing care of this patient today ____ minutes.
[2025-03-17 17:22] VITALS: BP 125/80; PULSE 86
[2025-03-17 20:04] VITALS: BP 139/81; PULSE 94; RESP 16; TEMP 37; O2SAT 95
[2025-03-17 20:37] VITALS: BP 139/81; PULSE 94
[2025-03-18 09:02] VITALS: BP 119/69; PULSE 77; RESP 16; TEMP 36.3; O2SAT 98
[2025-03-18] MEDS: Amphetamine Mixed Salts 10 MG TABLET 30 MG PO (09:03)
[2025-03-18] MEDS: OLANZapine ODT 10 MG TAB.RAPDIS TRANSLINGU ×2 (09:03→21:44)
[2025-03-18] MEDS: Dextroamphetamine/Amphetamine XR 10 MG CAP.ER.24H 30 MG PO (12:06)
[2025-03-18 16:23] VITALS: BP 164/91; PULSE 87
--- NOTE | 2025-03-18 18:27 | HO.PSYCHPN ---
Subjective Subjective Date of Service: 03/18/25 Reason For Visit: decompenstated, disorganized thoughts/tangetial Subjective Notes: Conditional Voluntary Healthcare Proxy: No Guardianship: No Medical Problems Affecting Mental Status: No Interim History: Perioral TD appears to be resolving with re-starting of Olanzapine. Pt reports improvement in sleep, perioral sx and mood. She is no longer biting her nails and feels more organized in preparing for her meetings with her associate attorney. Call from associate attorneyColleen of [employer] [phone]. She will contact Angélica to begin their work. Team is arranging first family meeting with parents for 03/22. Medication Compliance: Yes Side effects from medications: No Attending Groups: Intermittent Review of Systems Medical Review of Systems: unchanged Review of Systems Review of Systems perioral TD sx resolving Mental Status Exam Mental Status Exam Patient Appearance: Appropriate Patient Orientation: Person, Place, Time and Situation Level of Consciousness: Alert Patient Behavior: Appropriate, Talkative, Cooperative and Good Eye Contact Mood Description: Depressed, Anxious and Apprehensive Affect Description: Anxious and Flat Patient Cognition Impaired: No Ability to Follow Directions: Good Speech Pattern: Spontaneous Speech Memory Description: Episodic Impaired Hallucinations: None Delusions: Not Present Perceptual Disturbances: Depersonalization and Derealization Thought Process: Goal Oriented Thought Content: positive for Goal Oriented Depressive Symptoms: Thoughts of /Suicide (denies) Judgement: Fair Diagnostics Vital Signs (24Hr): Vital Signs - 24 hr 03/17/25 20:04 03/17/25 20:37 03/18/25 09:02 Temperature 98.6 F 97.4 F Pulse Rate 94 94 77 Respiratory Rate 16 16 Blood Pressure 139/81 139/81 119/69 Pulse Oximetry 95 98 Oxygen Delivery Method Room Air Room Air 03/18/25 16:23 Temperature Pulse Rate 87 Respiratory Rate Blood Pressure 164/91 H Pulse Oximetry Oxygen Delivery Method BMI result Body Mass Index 31.2 Labs 03/15/25 17:57 03/16/25 07:54 Medications Medications Current Medications Acetaminophen (Acetaminophen 325 Mg Tablet) 650 mg PO Q6H PRN PRN Reason: Headache/Pain, Scale 1-10 Al Hydroxide/Mg Hydroxide (Magnesium Hydrox/Alum Hydrox 30 Ml Oral.Susp) 30 ml PO Q6H PRN PRN Reason: Heartburn/Nausea Amphetamine/Dextroamphetamine (Amphetamine Mixed Salts 10 Mg Tablet) 30 mg PO DAILY [facility] Last Admin: 03/18/25 09:03 Dose: 30 mg Amphetamine/Dextroamphetamine (Dextroamphetamine/Amphetamine Xr 10 Mg Cap.Er.24h) 30 mg PO DAILY@1200 [facility] Last Admin: 03/18/25 12:06 Dose: 30 mg Diazepam (Diazepam 5 Mg Tablet) 10 mg PO TID PRN PRN Reason: severe anxiety Last Admin: 03/17/25 20:37 Dose: 10 mg Diphenhydramine HCl (Diphenhydramine Hcl 25 Mg Capsule) 25 mg PO QID@0700,1200,1600,2100 [facility] Last Admin: 03/18/25 16:23 Dose: 25 mg Duloxetine HCl (Duloxetine Hcl 20 Mg Capsule.Dr) 40 mg PO BIDWM [facility] Last Admin: 03/18/25 16:23 Dose: 40 mg Epinephrine (Epinephrine 1 Mg/Ml Vial) 0.3 mg IM DAILY PRN PRN Reason: auto immune reaction Hydroxyzine HCl (Hydroxyzine Hcl 25 Mg Tablet) 25 mg PO Q6H PRN PRN Reason: mild anxiety Magnesium Hydroxide (Milk Of Magnesia 30 Ml Oral.Susp) 30 ml PO DAILY PRN PRN Reason: Constipation Nicotine (Nicotine 21 Mg Patch.Td24) 21 mg TRANSDERMA DAILY PRN PRN Reason: nicotine craving Nicotine Polacrilex (Nicotine Polacrilex 2 Mg Gum) 2 mg BUCCAL Q2H PRN PRN Reason: Nicotine Cravings Olanzapine (Olanzapine Odt 10 Mg Tab.Rapdis) 10 mg TRANSLINGU BID [facility] Last Admin: 03/18/25 09:03 Dose: 10 mg Olanzapine (Olanzapine 5 Mg Tablet) 5 mg PO Q4H PRN PRN Reason: anxiety Propranolol HCl (Propranolol Hcl 10 Mg Tablet) 30 mg PO TID [facility]; Protocol Last Admin: 03/18/25 16:23 Dose: 30 mg Trazodone HCl (Trazodone Hcl 50 Mg Tablet) 50 mg PO BEDTIME MRX1 PRN PRN Reason: Insomnia Allergies Allergies Allergy/AdvReac Type Severity Reaction Status Date / Time gluten AdvReac Gastrointestinal Verified 03/15/25 16:31 Upset lithium AdvReac Unknown Verified 03/15/25 16:31 wheat AdvReac Gastrointestinal Verified 03/15/25 16:31 Upset Assessment & Plan Assessment & Plan (1) PTSD (post-traumatic stress disorder): Status: Acute Code(s): F43.10 - Post-traumatic stress disorder, unspecified (2) Bipolar disorder with psychotic features: Status: Acute Code(s): F31.9 - Bipolar disorder, unspecified Plan 03/17: Continue med regime/eval of sx 03/18: Family meeting 03/22. Continue tx Reason for continued inpatient stay Substantial Risk for: rapid decompensation Time Spent With Patient Time: Total time managing care of this patient today ____ minutes.
[2025-03-18 20:00] VITALS: BP 156/98; PULSE 108; RESP 16; TEMP 36.8; O2SAT 98
[2025-03-18 21:44] VITALS: BP 156/98; PULSE 108
[2025-03-19 08:00] VITALS: BP 130/95; PULSE 87; TEMP 36.8; O2SAT 97
[2025-03-19] MEDS: Amphetamine Mixed Salts 10 MG TABLET 30 MG PO (08:23)
[2025-03-19] MEDS: OLANZapine ODT 10 MG TAB.RAPDIS TRANSLINGU ×2 (08:23→22:29)
--- NOTE | 2025-03-19 10:41 | HO.PSYCHPN ---
Subjective Subjective Date of Service: 03/19/25 Reason For Visit: decompenstated, disorganized thoughts/tangetial Subjective Notes: Conditional Voluntary Healthcare Proxy: No Guardianship: No Medical Problems Affecting Mental Status: No Interim History: Perioral sx continue to improve. 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 Medication Compliance: Yes Side effects from medications: No Attending Groups: Yes Review of Systems Acute medical concerns: No Review of Systems Review of Systems Better Mental Status Exam Mental Status Exam Patient Appearance: Appropriate Patient Orientation: Person, Place, Time and Situation Level of Consciousness: Alert Patient Behavior: Appropriate, Talkative, Cooperative and Good Eye Contact Mood Description: Depressed, Anxious and Apprehensive Affect Description: Anxious and Flat Patient Cognition Impaired: No Ability to Follow Directions: Good Speech Pattern: Spontaneous Speech Memory Description: Episodic Impaired Hallucinations: None Delusions: Not Present Perceptual Disturbances: Depersonalization and Derealization Thought Process: Goal Oriented Thought Content: positive for Goal Oriented Depressive Symptoms: Thoughts of /Suicide (denies) Judgement: Fair Diagnostics Vital Signs (24Hr): Vital Signs - 24 hr 03/18/25 16:23 03/18/25 20:00 03/18/25 21:44 Temperature 98.2 F Pulse Rate 87 108 H 108 H Respiratory Rate 16 Blood Pressure 164/91 H 156/98 H 156/98 H Pulse Oximetry 98 Oxygen Delivery Method Room Air 03/19/25 08:00 Temperature 98.2 F Pulse Rate 87 Respiratory Rate Blood Pressure 130/95 H Pulse Oximetry 97 Oxygen Delivery Method Room Air BMI result Body Mass Index 31.2 Labs 03/15/25 17:57 03/16/25 07:54 Medications Medications Current Medications Acetaminophen (Acetaminophen 325 Mg Tablet) 650 mg PO Q6H PRN PRN Reason: Headache/Pain, Scale 1-10 Al Hydroxide/Mg Hydroxide (Magnesium Hydrox/Alum Hydrox 30 Ml Oral.Susp) 30 ml PO Q6H PRN PRN Reason: Heartburn/Nausea Amphetamine/Dextroamphetamine (Amphetamine Mixed Salts 10 Mg Tablet) 30 mg PO DAILY [facility] Last Admin: 03/19/25 08:23 Dose: 30 mg Amphetamine/Dextroamphetamine (Dextroamphetamine/Amphetamine Xr 10 Mg Cap.Er.24h) 30 mg PO DAILY@1200 [facility] Last Admin: 03/18/25 12:06 Dose: 30 mg Diazepam (Diazepam 5 Mg Tablet) 10 mg PO TID PRN PRN Reason: severe anxiety Last Admin: 03/18/25 21:44 Dose: 10 mg Diphenhydramine HCl (Diphenhydramine Hcl 25 Mg Capsule) 25 mg PO QID@0700,1200,1600,2100 [facility] Last Admin: 03/19/25 08:26 Dose: Not Given Duloxetine HCl (Duloxetine Hcl 20 Mg Capsule.Dr) 40 mg PO BIDWM [facility] Last Admin: 03/19/25 08:23 Dose: 40 mg Epinephrine (Epinephrine 1 Mg/Ml Vial) 0.3 mg IM DAILY PRN PRN Reason: auto immune reaction Hydroxyzine HCl (Hydroxyzine Hcl 25 Mg Tablet) 25 mg PO Q6H PRN PRN Reason: mild anxiety Magnesium Hydroxide (Milk Of Magnesia 30 Ml Oral.Susp) 30 ml PO DAILY PRN PRN Reason: Constipation Nicotine (Nicotine 21 Mg Patch.Td24) 21 mg TRANSDERMA DAILY PRN PRN Reason: nicotine craving Nicotine Polacrilex (Nicotine Polacrilex 2 Mg Gum) 2 mg BUCCAL Q2H PRN PRN Reason: Nicotine Cravings Olanzapine (Olanzapine Odt 10 Mg Tab.Rapdis) 10 mg TRANSLINGU BID [facility] Last Admin: 03/19/25 08:23 Dose: 10 mg Olanzapine (Olanzapine 5 Mg Tablet) 5 mg PO Q4H PRN PRN Reason: anxiety Propranolol HCl (Propranolol Hcl 10 Mg Tablet) 30 mg PO TID [facility]; Protocol Last Admin: 03/19/25 08:23 Dose: 30 mg Trazodone HCl (Trazodone Hcl 50 Mg Tablet) 50 mg PO BEDTIME MRX1 PRN PRN Reason: Insomnia Allergies Allergies Allergy/AdvReac Type Severity Reaction Status Date / Time gluten AdvReac Gastrointestinal Verified 03/15/25 16:31 Upset lithium AdvReac Unknown Verified 03/15/25 16:31 wheat AdvReac Gastrointestinal Verified 03/15/25 16:31 Upset Assessment & Plan Assessment & Plan (1) PTSD (post-traumatic stress disorder): Status: Acute Code(s): F43.10 - Post-traumatic stress disorder, unspecified (2) Bipolar disorder with psychotic features: Status: Acute Code(s): F31.9 - Bipolar disorder, unspecified Plan 03/17: Continue med regime/eval of sx 03/19: Continue tx Reason for continued inpatient stay Substantial Risk for: rapid decompensation Time Spent With Patient Time: Total time managing care of this patient today ____ minutes.
[2025-03-19] MEDS: Dextroamphetamine/Amphetamine XR 10 MG CAP.ER.24H 30 MG PO (11:03)
[2025-03-19 14:43] VITALS: BP 150/91; PULSE 77
[2025-03-19 20:00] VITALS: BP 155/87; PULSE 99; RESP 18; TEMP 37; O2SAT 96
[2025-03-20 08:00] VITALS: BP 132/87; PULSE 97; RESP 16; TEMP 36.7; O2SAT 98
[2025-03-20] MEDS: OLANZapine ODT 10 MG TAB.RAPDIS TRANSLINGU ×2 (08:33→22:01)
[2025-03-20] MEDS: Amphetamine Mixed Salts 10 MG TABLET 30 MG PO (08:33)
--- NOTE | 2025-03-20 10:09 | HO.PSYCHPN ---
Subjective Subjective Date of Service: 03/20/25 Reason For Visit: decompenstated, disorganized thoughts/tangetial Subjective Notes: Conditional Voluntary Interim History: Patient notes that she is feeling better. She states TD has significantly improved with intermittent mild burning sensation to chin. She denies pain. She denies anxiety or depression. She denies SI/HI/AH/VH. Medication Compliance: Yes Side effects from medications: No Attending Groups: Intermittent Review of Systems Acute medical concerns: No Mental Status Exam Mental Status Exam Narrative: Appearance: Casually dressed, adequate hygiene Behavior: Talkative. Calm and cooperative throughout the interview. Eye contact is appropriate, and there are no signs of psychomotor agitation or retardation Speech: Normal volume and prosody Thought process: Logical and goal-directed Thought content: Future oriented no self-harming thoughts Mood: Calm Affect: Constricted SI:denies HI:denies VH/AH:none Delusions: None Insight/judgment: Fair insight and judgment Memory/cog: Alert, oriented x 4. grossly intact to conversational testing Diagnostics Vital Signs (24Hr): Vital Signs - 24 hr 03/19/25 14:43 03/19/25 20:00 03/20/25 08:00 Temperature 98.6 F 98.0 F Pulse Rate 77 99 97 Respiratory Rate 18 16 Blood Pressure 150/91 H 155/87 H 132/87 Pulse Oximetry 96 98 Oxygen Delivery Method Room Air Room Air BMI result Body Mass Index 31.2 Labs 03/15/25 17:57 03/16/25 07:54 Medications Medications Current Medications Acetaminophen (Acetaminophen 325 Mg Tablet) 650 mg PO Q6H PRN PRN Reason: Headache/Pain, Scale 1-10 Al Hydroxide/Mg Hydroxide (Magnesium Hydrox/Alum Hydrox 30 Ml Oral.Susp) 30 ml PO Q6H PRN PRN Reason: Heartburn/Nausea Amphetamine/Dextroamphetamine (Amphetamine Mixed Salts 10 Mg Tablet) 30 mg PO DAILY [facility] Last Admin: 03/20/25 08:33 Dose: 30 mg Amphetamine/Dextroamphetamine (Dextroamphetamine/Amphetamine Xr 10 Mg Cap.Er.24h) 30 mg PO DAILY@1200 [facility] Last Admin: 03/19/25 11:03 Dose: 30 mg Diazepam (Diazepam 5 Mg Tablet) 10 mg PO TID PRN PRN Reason: severe anxiety Last Admin: 03/19/25 22:28 Dose: 10 mg Diphenhydramine HCl (Diphenhydramine Hcl 25 Mg Capsule) 25 mg PO QID@0700,1200,1600,2100 [facility] Last Admin: 03/20/25 08:34 Dose: Not Given Duloxetine HCl (Duloxetine Hcl 20 Mg Capsule.Dr) 40 mg PO BIDWM [facility] Last Admin: 03/20/25 08:33 Dose: 40 mg Epinephrine (Epinephrine 1 Mg/Ml Vial) 0.3 mg IM DAILY PRN PRN Reason: auto immune reaction Hydroxyzine HCl (Hydroxyzine Hcl 25 Mg Tablet) 25 mg PO Q6H PRN PRN Reason: mild anxiety Magnesium Hydroxide (Milk Of Magnesia 30 Ml Oral.Susp) 30 ml PO DAILY PRN PRN Reason: Constipation Nicotine (Nicotine 21 Mg Patch.Td24) 21 mg TRANSDERMA DAILY PRN PRN Reason: nicotine craving Nicotine Polacrilex (Nicotine Polacrilex 2 Mg Gum) 2 mg BUCCAL Q2H PRN PRN Reason: Nicotine Cravings Olanzapine (Olanzapine Odt 10 Mg Tab.Rapdis) 10 mg TRANSLINGU BID [facility] Last Admin: 03/20/25 08:33 Dose: 10 mg Olanzapine (Olanzapine 5 Mg Tablet) 5 mg PO Q4H PRN PRN Reason: anxiety Propranolol HCl (Propranolol Hcl 10 Mg Tablet) 30 mg PO TID [facility]; Protocol Last Admin: 03/20/25 08:33 Dose: 30 mg Trazodone HCl (Trazodone Hcl 50 Mg Tablet) 50 mg PO BEDTIME MRX1 PRN PRN Reason: Insomnia Allergies Allergies Allergy/AdvReac Type Severity Reaction Status Date / Time gluten AdvReac Gastrointestinal Verified 03/15/25 16:31 Upset lithium AdvReac Unknown Verified 03/15/25 16:31 wheat AdvReac Gastrointestinal Verified 03/15/25 16:31 Upset Assessment & Plan Assessment & Plan (1) PTSD (post-traumatic stress disorder): Status: Acute Code(s): F43.10 - Post-traumatic stress disorder, unspecified (2) Bipolar disorder with psychotic features: Status: Acute Code(s): F31.9 - Bipolar disorder, unspecified Plan 03/17: Continue med regime/eval of sx 03/19: Continue tx 03/20: Continue current treatment regimen. Patient educated on: therapeutic strategies Reason for continued inpatient stay Substantial Risk for: rapid decompensation Time Spent With Patient Time: Total time managing care of this patient today ____ minutes.
[2025-03-20] MEDS: Dextroamphetamine/Amphetamine XR 10 MG CAP.ER.24H 30 MG PO (11:18)
[2025-03-20 15:06] VITALS: BP 152/79; PULSE 81
[2025-03-20 20:00] VITALS: BP 132/92; PULSE 92; RESP 16; TEMP 36.6; O2SAT 97
[2025-03-21 07:00] VITALS: BMI 32.3
[2025-03-21 08:00] VITALS: BP 145/92; PULSE 89; RESP 18; TEMP 36.8; O2SAT 97
[2025-03-21] MEDS: Amphetamine Mixed Salts 10 MG TABLET 30 MG PO (08:26)
[2025-03-21] MEDS: OLANZapine ODT 10 MG TAB.RAPDIS TRANSLINGU ×2 (08:26→21:10)
--- NOTE | 2025-03-21 10:10 | P.PNPSI_ITS ---
Subjective Subjective Date of Service: 03/21/25 Reason For Visit: decompenstated, disorganized thoughts/tangetial Subjective Notes: Conditional Voluntary Healthcare Proxy: No Guardianship: No Medical Problems Affecting Mental Status: No Interim History: Pt seen and discussed with her team. Preparing for family meeting 03/22. DC scheduled for 03/24. Pt clear on goals-unification with family to benefit the children and herself. Review of topics to discuss on 03/22. Review of diagnosis, care plan, med plan. Pt reports she is in agreement. Perioral TD is absent. Call to pt's prescriber-they did not continue Olanzapine in the last appt and pharmacy did not refill. Medication Compliance: Yes Side effects from medications: No Attending Groups: Intermittent Review of Systems Acute medical concerns: No Medical Review of Systems: unchanged Review of Systems Review of Systems Denies today- I am feeling hope and relief today. Mental Status Exam Mental Status Exam Patient Appearance: Appropriate Patient Orientation: Person, Place, Time and Situation Level of Consciousness: Alert Patient Behavior: Appropriate, Talkative, Cooperative and Good Eye Contact Mood Description: Calm and Appropriate Affect Description: Calm and Appropriate Patient Cognition Impaired: No Ability to Follow Directions: Good Speech Pattern: Spontaneous Speech Memory Description: Episodic Impaired Hallucinations: None Delusions: Not Present Perceptual Disturbances: Depersonalization and Derealization Thought Process: Goal Oriented Thought Content: positive for Goal Oriented Depressive Symptoms: Thoughts of /Suicide (denies) Judgement: Good Diagnostics Vital Signs (24Hr): Vital Signs - 24 hr 03/20/25 15:06 03/20/25 20:00 03/21/25 08:00 Temperature 97.9 F 98.3 F Pulse Rate 81 92 89 Respiratory Rate 16 18 Blood Pressure 152/79 H 132/92 H 145/92 H Pulse Oximetry 97 97 Oxygen Delivery Method Room Air Room Air BMI result Body Mass Index 32.3 Labs 03/15/25 17:57 03/16/25 07:54 Medications Medications Current Medications Acetaminophen (Acetaminophen 325 Mg Tablet) 650 mg PO Q6H PRN PRN Reason: Headache/Pain, Scale 1-10 Al Hydroxide/Mg Hydroxide (Magnesium Hydrox/Alum Hydrox 30 Ml Oral.Susp) 30 ml PO Q6H PRN PRN Reason: Heartburn/Nausea Amphetamine/Dextroamphetamine (Amphetamine Mixed Salts 10 Mg Tablet) 30 mg PO DAILY [facility] Last Admin: 03/21/25 08:26 Dose: 30 mg Amphetamine/Dextroamphetamine (Dextroamphetamine/Amphetamine Xr 10 Mg Cap.Er.24h) 30 mg PO DAILY@1200 [facility] Last Admin: 03/20/25 11:18 Dose: 30 mg Diazepam (Diazepam 5 Mg Tablet) 10 mg PO TID PRN PRN Reason: severe anxiety Last Admin: 03/20/25 21:54 Dose: 10 mg Diphenhydramine HCl (Diphenhydramine Hcl 25 Mg Capsule) 25 mg PO QID@0700,1200,1600,2100 [facility] Last Admin: 03/21/25 06:10 Dose: Not Given Duloxetine HCl (Duloxetine Hcl 20 Mg Capsule.Dr) 40 mg PO BIDWM [facility] Last Admin: 03/21/25 08:26 Dose: 40 mg Epinephrine (Epinephrine 1 Mg/Ml Vial) 0.3 mg IM DAILY PRN PRN Reason: auto immune reaction Hydroxyzine HCl (Hydroxyzine Hcl 25 Mg Tablet) 25 mg PO Q6H PRN PRN Reason: mild anxiety Magnesium Hydroxide (Milk Of Magnesia 30 Ml Oral.Susp) 30 ml PO DAILY PRN PRN Reason: Constipation Nicotine (Nicotine 21 Mg Patch.Td24) 21 mg TRANSDERMA DAILY PRN PRN Reason: nicotine craving Nicotine Polacrilex (Nicotine Polacrilex 2 Mg Gum) 2 mg BUCCAL Q2H PRN PRN Reason: Nicotine Cravings Olanzapine (Olanzapine Odt 10 Mg Tab.Rapdis) 10 mg TRANSLINGU BID [facility] Last Admin: 03/21/25 08:26 Dose: 10 mg Olanzapine (Olanzapine 5 Mg Tablet) 5 mg PO Q4H PRN PRN Reason: anxiety Propranolol HCl (Propranolol Hcl 10 Mg Tablet) 30 mg PO TID [facility]; Protocol Last Admin: 03/21/25 08:26 Dose: 30 mg Trazodone HCl (Trazodone Hcl 50 Mg Tablet) 50 mg PO BEDTIME MRX1 PRN PRN Reason: Insomnia Allergies Allergies Allergy/AdvReac Type Severity Reaction Status Date / Time gluten AdvReac Gastrointestinal Verified 03/15/25 16:31 Upset lithium AdvReac Unknown Verified 03/15/25 16:31 wheat AdvReac Gastrointestinal Verified 03/15/25 16:31 Upset Assessment & Plan Assessment & Plan (1) PTSD (post-traumatic stress disorder): Status: Acute Code(s): F43.10 - Post-traumatic stress disorder, unspecified (2) Bipolar disorder with psychotic features: Status: Acute Code(s): F31.9 - Bipolar disorder, unspecified Plan 03/17: Continue med regime/eval of sx 03/19: Continue tx 03/20: Continue current treatment regimen. 03/21: Family meeting 03/22 Continue current plan DC on 03/24. Reason for continued inpatient stay Substantial Risk for: rapid decompensation Time Spent With Patient Time: Total time managing care of this patient today ____ minutes.
[2025-03-21] MEDS: Dextroamphetamine/Amphetamine XR 10 MG CAP.ER.24H 30 MG PO (11:04)
[2025-03-21 16:00] VITALS: BP 141/93; PULSE 107
[2025-03-21 20:16] VITALS: BP 154/95; PULSE 102; RESP 16; TEMP 37; O2SAT 97
[2025-03-21 21:10] VITALS: BP 154/95; PULSE 102
[2025-03-22 08:00] VITALS: BP 143/81; PULSE 88; TEMP 37.2; O2SAT 97
[2025-03-22] MEDS: Amphetamine Mixed Salts 10 MG TABLET 30 MG PO (08:24)
[2025-03-22] MEDS: OLANZapine ODT 10 MG TAB.RAPDIS TRANSLINGU ×2 (08:25→21:42)
--- NOTE | 2025-03-22 09:48 | HO.PSYCHPN ---
Subjective Subjective Date of Service: 03/22/25 Reason For Visit: decompenstated, disorganized thoughts/tangetial Subjective Notes: Conditional Voluntary Healthcare Proxy: No Guardianship: No Medical Problems Affecting Mental Status: No Interim History: Family meeting with parents, Minh Quinonesjayda MACHADO. Pt will postpone DC on 03/24. Still work to be done on her perception/reactions to ex- which we learned today is a significant contributor to her decompensations. He texts her with negative information and she internalizes this, thinking it is truth and reacts, causing SI, mood instability. Parents are a strong support. All are working together to re-unite pt and her children. Medication Compliance: Yes Side effects from medications: No Attending Groups: Intermittent Review of Systems Acute medical concerns: No Medical Review of Systems: unchanged Review of Systems Review of Systems Denies Mental Status Exam Mental Status Exam Patient Appearance: Appropriate Patient Orientation: Person, Place, Time and Situation Level of Consciousness: Alert Patient Behavior: Appropriate, Talkative, Cooperative and Good Eye Contact Mood Description: Anxious and Apprehensive Affect Description: Anxious and Apprehensive Patient Cognition Impaired: No Ability to Follow Directions: Good Speech Pattern: Spontaneous Speech Memory Description: Episodic Impaired Hallucinations: None Delusions: Not Present Perceptual Disturbances: Depersonalization and Derealization Thought Process: Goal Oriented Thought Content: positive for Goal Oriented Depressive Symptoms: Thoughts of /Suicide (denies) Judgement: Good Diagnostics Vital Signs (24Hr): Vital Signs - 24 hr 03/21/25 16:00 03/21/25 20:16 03/21/25 21:10 Temperature 98.6 F Pulse Rate 107 H 102 H 102 H Respiratory Rate 16 Blood Pressure 141/93 H 154/95 H 154/95 H Pulse Oximetry 97 Oxygen Delivery Method Room Air 03/22/25 08:00 Temperature 98.9 F Pulse Rate 88 Respiratory Rate Blood Pressure 143/81 H Pulse Oximetry 97 Oxygen Delivery Method Room Air BMI result Body Mass Index 32.3 Labs 03/15/25 17:57 03/16/25 07:54 Medications Medications Current Medications Acetaminophen (Acetaminophen 325 Mg Tablet) 650 mg PO Q6H PRN PRN Reason: Headache/Pain, Scale 1-10 Last Admin: 03/22/25 06:11 Dose: 650 mg Al Hydroxide/Mg Hydroxide (Magnesium Hydrox/Alum Hydrox 30 Ml Oral.Susp) 30 ml PO Q6H PRN PRN Reason: Heartburn/Nausea Amphetamine/Dextroamphetamine (Amphetamine Mixed Salts 10 Mg Tablet) 30 mg PO DAILY [facility] Last Admin: 03/22/25 08:24 Dose: 30 mg Amphetamine/Dextroamphetamine (Dextroamphetamine/Amphetamine Xr 10 Mg Cap.Er.24h) 30 mg PO DAILY@1200 [facility] Last Admin: 03/21/25 11:04 Dose: 30 mg Diazepam (Diazepam 5 Mg Tablet) 10 mg PO TID PRN PRN Reason: severe anxiety Last Admin: 03/22/25 06:12 Dose: 10 mg Diphenhydramine HCl (Diphenhydramine Hcl 25 Mg Capsule) 25 mg PO QID@0700,1200,1600,2100 [facility] Last Admin: 03/22/25 08:09 Dose: Not Given Duloxetine HCl (Duloxetine Hcl 20 Mg Capsule.Dr) 40 mg PO BIDWM [facility] Last Admin: 03/22/25 08:24 Dose: 40 mg Epinephrine (Epinephrine 1 Mg/Ml Vial) 0.3 mg IM DAILY PRN PRN Reason: auto immune reaction Hydroxyzine HCl (Hydroxyzine Hcl 25 Mg Tablet) 25 mg PO Q6H PRN PRN Reason: mild anxiety Magnesium Hydroxide (Milk Of Magnesia 30 Ml Oral.Susp) 30 ml PO DAILY PRN PRN Reason: Constipation Nicotine (Nicotine 21 Mg Patch.Td24) 21 mg TRANSDERMA DAILY PRN PRN Reason: nicotine craving Nicotine Polacrilex (Nicotine Polacrilex 2 Mg Gum) 2 mg BUCCAL Q2H PRN PRN Reason: Nicotine Cravings Olanzapine (Olanzapine Odt 10 Mg Tab.Rapdis) 10 mg TRANSLINGU BID [facility] Last Admin: 03/22/25 08:25 Dose: 10 mg Olanzapine (Olanzapine 5 Mg Tablet) 5 mg PO Q4H PRN PRN Reason: anxiety Propranolol HCl (Propranolol Hcl 10 Mg Tablet) 30 mg PO TID [facility]; Protocol Last Admin: 03/22/25 08:24 Dose: 30 mg Trazodone HCl (Trazodone Hcl 50 Mg Tablet) 50 mg PO BEDTIME MRX1 PRN PRN Reason: Insomnia Allergies Allergies Allergy/AdvReac Type Severity Reaction Status Date / Time gluten AdvReac Gastrointestinal Verified 03/15/25 16:31 Upset lithium AdvReac Unknown Verified 03/15/25 16:31 wheat AdvReac Gastrointestinal Verified 03/15/25 16:31 Upset Assessment & Plan Assessment & Plan (1) PTSD (post-traumatic stress disorder): Status: Acute Code(s): F43.10 - Post-traumatic stress disorder, unspecified (2) Bipolar disorder with psychotic features: Status: Acute Code(s): F31.9 - Bipolar disorder, unspecified Plan 03/17: Continue med regime/eval of sx 03/19: Continue tx 03/20: Continue current treatment regimen. 03/21: Family meeting 03/22 Continue current plan DC on 03/24. 03/22: Encouraged group work on her response to ex-husbands statements which can be destabilizing Reason for continued inpatient stay Substantial Risk for: rapid decompensation Time Spent With Patient Time: Total time managing care of this patient today ____ minutes.
[2025-03-22] MEDS: Dextroamphetamine/Amphetamine XR 10 MG CAP.ER.24H 30 MG PO (11:03)
[2025-03-22 20:00] VITALS: BP 130/80; PULSE 94; TEMP 37; O2SAT 93
[2025-03-22 21:42] VITALS: BP 130/80; PULSE 94
[2025-03-23 08:30] VITALS: BP 132/76; PULSE 86; TEMP 37.1; O2SAT 96
[2025-03-23 08:44] VITALS: BP 132/76; PULSE 86
[2025-03-23] MEDS: Amphetamine Mixed Salts 10 MG TABLET 30 MG PO (08:44)
[2025-03-23] MEDS: OLANZapine ODT 10 MG TAB.RAPDIS TRANSLINGU ×2 (08:45→21:40)
--- NOTE | 2025-03-23 09:02 | P.PNPSI_ITS ---
Subjective Subjective Date of Service: 03/23/25 Reason For Visit: decompenstated, disorganized thoughts/tangetial Interim History: Doing well. Feels she will be ready to leave next week. Looking forward to it. Feels supported by her family. Sleep and appetite are good. Appears less depressed and anxious. No SI/HI. Review of Systems Review of Systems Denies Constitutional: Reports as per HPI Eyes: Reports as per HPI Reports as per HPI Cardiovascular: Reports as per HPI Respiratory: Reports as per HPI Gastrointestinal: Reports as per HPI Musculoskeletal: Reports as per HPI Skin/Breast: Reports as per HPI Reports as per HPI Psychiatric: Reports as per HPI Endocrine: Reports as per HPI Hematologic/Lymphatic: Reports as per HPI Allergic/Immunologic: Reports as per HPI Mental Status Exam Mental Status Exam Narrative: Appearance: Casually dressed, adequate hygiene Behavior: Talkative. Calm and cooperative throughout the interview. Eye contact is appropriate, and there are no signs of psychomotor agitation or retardation Speech: Normal volume and prosody Thought process: Logical and goal-directed Thought content: Future oriented no self-harming thoughts Mood: Calm Affect: Constricted SI:denies HI:denies VH/AH:none Delusions: None Insight/judgment: Fair insight and judgment Memory/cog: Alert, oriented x 4. grossly intact to conversational testing Patient Appearance: Appropriate Patient Orientation: Person, Place, Time and Situation Level of Consciousness: Alert Patient Behavior: Appropriate, Talkative, Cooperative and Good Eye Contact Mood Description: Anxious and Apprehensive Affect Description: Anxious and Apprehensive Patient Cognition Impaired: No Ability to Follow Directions: Good Speech Pattern: Spontaneous Speech Memory Description: Episodic Impaired Diagnostics Vital Signs (24Hr): Vital Signs - 24 hr 03/22/25 20:00 03/22/25 21:42 03/23/25 08:44 Temperature 98.6 F Pulse Rate 94 94 86 Blood Pressure 130/80 130/80 132/76 Pulse Oximetry 93 Oxygen Delivery Method Room Air BMI result Body Mass Index 32.3 Labs 03/15/25 17:57 03/16/25 07:54 Medications Medications Current Medications Acetaminophen (Acetaminophen 325 Mg Tablet) 650 mg PO Q6H PRN PRN Reason: Headache/Pain, Scale 1-10 Last Admin: 03/22/25 06:11 Dose: 650 mg Al Hydroxide/Mg Hydroxide (Magnesium Hydrox/Alum Hydrox 30 Ml Oral.Susp) 30 ml PO Q6H PRN PRN Reason: Heartburn/Nausea Amphetamine/Dextroamphetamine (Amphetamine Mixed Salts 10 Mg Tablet) 30 mg PO DAILY [facility] Last Admin: 03/23/25 08:44 Dose: 30 mg Amphetamine/Dextroamphetamine (Dextroamphetamine/Amphetamine Xr 10 Mg Cap.Er.24h) 30 mg PO DAILY@1200 [facility] Last Admin: 03/22/25 11:03 Dose: 30 mg Diazepam (Diazepam 5 Mg Tablet) 10 mg PO TID PRN PRN Reason: severe anxiety Last Admin: 03/22/25 14:31 Dose: 10 mg Diphenhydramine HCl (Diphenhydramine Hcl 25 Mg Capsule) 25 mg PO QID@0700,1200,1600,2100 [facility] Last Admin: 03/23/25 07:02 Dose: 25 mg Duloxetine HCl (Duloxetine Hcl 20 Mg Capsule.Dr) 40 mg PO BIDWM [facility] Last Admin: 03/23/25 08:45 Dose: 40 mg Epinephrine (Epinephrine 1 Mg/Ml Vial) 0.3 mg IM DAILY PRN PRN Reason: auto immune reaction Hydroxyzine HCl (Hydroxyzine Hcl 25 Mg Tablet) 25 mg PO Q6H PRN PRN Reason: mild anxiety Magnesium Hydroxide (Milk Of Magnesia 30 Ml Oral.Susp) 30 ml PO DAILY PRN PRN Reason: Constipation Nicotine (Nicotine 21 Mg Patch.Td24) 21 mg TRANSDERMA DAILY PRN PRN Reason: nicotine craving Nicotine Polacrilex (Nicotine Polacrilex 2 Mg Gum) 2 mg BUCCAL Q2H PRN PRN Reason: Nicotine Cravings Olanzapine (Olanzapine Odt 10 Mg Tab.Rapdis) 10 mg TRANSLINGU BID [facility] Last Admin: 03/23/25 08:45 Dose: 10 mg Olanzapine (Olanzapine 5 Mg Tablet) 5 mg PO Q4H PRN PRN Reason: anxiety Propranolol HCl (Propranolol Hcl 10 Mg Tablet) 30 mg PO TID [facility]; Protocol Last Admin: 03/23/25 08:44 Dose: 30 mg Trazodone HCl (Trazodone Hcl 50 Mg Tablet) 50 mg PO BEDTIME MRX1 PRN PRN Reason: Insomnia Allergies Allergies Allergy/AdvReac Type Severity Reaction Status Date / Time gluten AdvReac Gastrointestinal Verified 03/15/25 16:31 Upset lithium AdvReac Unknown Verified 03/15/25 16:31 wheat AdvReac Gastrointestinal Verified 03/15/25 16:31 Upset Assessment & Plan Assessment & Plan (1) PTSD (post-traumatic stress disorder): Status: Acute Code(s): F43.10 - Post-traumatic stress disorder, unspecified (2) Bipolar disorder with psychotic features: Status: Acute Code(s): F31.9 - Bipolar disorder, unspecified Plan 03/17: Continue med regime/eval of sx 03/19: Continue tx 03/20: Continue current treatment regimen. 03/21: Family meeting 03/22 Continue current plan DC on 03/24. 03/22: Encouraged group work on her response to ex-husbands statements which can be destabilizing 03/23: Continue current management and treatment plan. Reason for continued inpatient stay Substantial Risk for: harm to self and rapid decompensation Time Spent With Patient Time: Total time managing care of this patient today ____ minutes.
[2025-03-23] MEDS: Dextroamphetamine/Amphetamine XR 10 MG CAP.ER.24H 30 MG PO (11:46)
[2025-03-23 14:37] VITALS: BP 123/90; PULSE 94
[2025-03-23 20:00] VITALS: BP 144/94; PULSE 95; TEMP 37.2; O2SAT 97
[2025-03-23 21:40] VITALS: BP 144/74; PULSE 95
[2025-03-24 08:00] VITALS: BP 141/77; PULSE 99; RESP 18; TEMP 36.8; O2SAT 96
--- NOTE | 2025-03-24 08:35 | P.PNPSI_ITS ---
Subjective Subjective Date of Service: 03/24/25 Reason For Visit: decompenstated, disorganized thoughts/tangetial Interim History: Doing well. She is more hopeful. Taslked about meeting with a non-profit [employer] firm that specialize in custody battles in [place] and is optimistic about it. Feels she will be ready to leave next week. Tolerating her medications and adjustments. Feels supported by her family and team and thankful. Sleep and appetite are good. Appears less depressed and anxious. No SI/HI. Review of Systems Review of Systems Denies Constitutional: Reports as per HPI Eyes: Reports as per HPI Reports as per HPI Cardiovascular: Reports as per HPI Respiratory: Reports as per HPI Gastrointestinal: Reports as per HPI Musculoskeletal: Reports as per HPI Skin/Breast: Reports as per HPI Reports as per HPI Psychiatric: Reports as per HPI Endocrine: Reports as per HPI Hematologic/Lymphatic: Reports as per HPI Allergic/Immunologic: Reports as per HPI Mental Status Exam Mental Status Exam Narrative: Appearance: Casually dressed, adequate hygiene Behavior: Talkative. Calm and cooperative throughout the interview. Eye contact is appropriate, and there are no signs of psychomotor agitation or retardation Speech: Normal volume and prosody Thought process: Logical and goal-directed Thought content: Future oriented no self-harming thoughts Mood: Calm Affect: Constricted SI:denies HI:denies VH/AH:none Delusions: None Insight/judgment: Fair insight and judgment Memory/cog: Alert, oriented x 4. grossly intact to conversational testing Patient Appearance: Appropriate Patient Orientation: Person, Place, Time and Situation Level of Consciousness: Alert Patient Behavior: Appropriate, Talkative, Cooperative and Good Eye Contact Mood Description: Anxious and Apprehensive Affect Description: Anxious and Apprehensive Patient Cognition Impaired: No Ability to Follow Directions: Good Speech Pattern: Spontaneous Speech Memory Description: Episodic Impaired Diagnostics Vital Signs (24Hr): Vital Signs - 24 hr 03/23/25 08:44 03/23/25 14:37 03/23/25 20:00 Temperature 98.9 F Pulse Rate 86 94 95 Respiratory Rate Blood Pressure 132/76 123/90 H 144/94 H Pulse Oximetry 97 Oxygen Delivery Method Room Air 03/23/25 21:40 03/24/25 08:00 Temperature 98.2 F Pulse Rate 95 99 Respiratory Rate 18 Blood Pressure 144/74 H 141/77 H Pulse Oximetry 96 Oxygen Delivery Method Room Air BMI result Body Mass Index 32.3 Labs 03/15/25 17:57 03/16/25 07:54 Medications Medications Current Medications Acetaminophen (Acetaminophen 325 Mg Tablet) 650 mg PO Q6H PRN PRN Reason: Headache/Pain, Scale 1-10 Last Admin: 03/22/25 06:11 Dose: 650 mg Al Hydroxide/Mg Hydroxide (Magnesium Hydrox/Alum Hydrox 30 Ml Oral.Susp) 30 ml PO Q6H PRN PRN Reason: Heartburn/Nausea Amphetamine/Dextroamphetamine (Amphetamine Mixed Salts 10 Mg Tablet) 30 mg PO DAILY [facility] Last Admin: 03/23/25 08:44 Dose: 30 mg Amphetamine/Dextroamphetamine (Dextroamphetamine/Amphetamine Xr 10 Mg Cap.Er.24h) 30 mg PO DAILY@1200 [facility] Last Admin: 03/23/25 11:46 Dose: 30 mg Diazepam (Diazepam 5 Mg Tablet) 10 mg PO TID PRN PRN Reason: severe anxiety Last Admin: 03/23/25 18:01 Dose: 10 mg Diphenhydramine HCl (Diphenhydramine Hcl 25 Mg Capsule) 25 mg PO QID@0700,1200,1600,2100 [facility] Last Admin: 03/23/25 21:40 Dose: 25 mg Duloxetine HCl (Duloxetine Hcl 20 Mg Capsule.Dr) 40 mg PO BIDWM [facility] Last Admin: 03/23/25 16:59 Dose: 40 mg Epinephrine (Epinephrine 1 Mg/Ml Vial) 0.3 mg IM DAILY PRN PRN Reason: auto immune reaction Hydroxyzine HCl (Hydroxyzine Hcl 25 Mg Tablet) 25 mg PO Q6H PRN PRN Reason: mild anxiety Last Admin: 03/23/25 19:28 Dose: 25 mg Magnesium Hydroxide (Milk Of Magnesia 30 Ml Oral.Susp) 30 ml PO DAILY PRN PRN Reason: Constipation Nicotine (Nicotine 21 Mg Patch.Td24) 21 mg TRANSDERMA DAILY PRN PRN Reason: nicotine craving Nicotine Polacrilex (Nicotine Polacrilex 2 Mg Gum) 2 mg BUCCAL Q2H PRN PRN Reason: Nicotine Cravings Olanzapine (Olanzapine Odt 10 Mg Tab.Rapdis) 10 mg TRANSLINGU BID [facility] Last Admin: 03/23/25 21:40 Dose: 10 mg Olanzapine (Olanzapine 5 Mg Tablet) 5 mg PO Q4H PRN PRN Reason: anxiety Propranolol HCl (Propranolol Hcl 10 Mg Tablet) 30 mg PO TID [facility]; Protocol Last Admin: 03/23/25 21:40 Dose: 30 mg Trazodone HCl (Trazodone Hcl 50 Mg Tablet) 50 mg PO BEDTIME MRX1 PRN PRN Reason: Insomnia Allergies Allergies Allergy/AdvReac Type Severity Reaction Status Date / Time gluten AdvReac Gastrointestinal Verified 03/15/25 16:31 Upset lithium AdvReac Unknown Verified 03/15/25 16:31 wheat AdvReac Gastrointestinal Verified 03/15/25 16:31 Upset Assessment & Plan Assessment & Plan (1) PTSD (post-traumatic stress disorder): Status: Acute Code(s): F43.10 - Post-traumatic stress disorder, unspecified (2) Bipolar disorder with psychotic features: Status: Acute Code(s): F31.9 - Bipolar disorder, unspecified Plan 03/17: Continue med regime/eval of sx 03/19: Continue tx 03/20: Continue current treatment regimen. 03/21: Family meeting 03/22 Continue current plan DC on 03/24. 03/22: Encouraged group work on her response to ex-husbands statements which can be destabilizing 03/23: Continue current management and treatment plan. 03/24: continue current management and treatment plan. DC early in the week. Reason for continued inpatient stay Substantial Risk for: harm to self, inability to function and rapid decompensation Time Spent With Patient Time: Total time managing care of this patient today ____ minutes.
[2025-03-24] MEDS: OLANZapine ODT 10 MG TAB.RAPDIS TRANSLINGU ×2 (08:44→21:41)
[2025-03-24] MEDS: Amphetamine Mixed Salts 10 MG TABLET 30 MG PO (08:45)
[2025-03-24] MEDS: Dextroamphetamine/Amphetamine XR 10 MG CAP.ER.24H 30 MG PO (11:01)
[2025-03-24 15:31] VITALS: BP 127/73; PULSE 103
[2025-03-24 20:00] VITALS: BP 123/80; PULSE 103; RESP 18; TEMP 36.4; O2SAT 96
[2025-03-25 08:00] VITALS: BP 121/73; PULSE 96; RESP 18; TEMP 36.6; O2SAT 97
[2025-03-25] MEDS: Amphetamine Mixed Salts 10 MG TABLET 30 MG PO (08:33)
[2025-03-25] MEDS: OLANZapine ODT 10 MG TAB.RAPDIS TRANSLINGU ×2 (08:35→20:42)
--- NOTE | 2025-03-25 09:44 | P.PNPSI_ITS ---
Subjective Subjective Date of Service: 03/25/25 Reason For Visit: decompenstated, disorganized thoughts/tangetial Interim History: Doing well. Remains stable. She says she heard from the courts that she has to do hair follicle testing for drugs and that was what her asked for. Overall more hopeful. Feels she will be ready to leave this week. Tolerating her medications and adjustments. Feels supported by her family and team and thankful. Sleep and appetite are good. Appears less depressed and anxious. No SI/HI. Review of Systems Review of Systems Denies Constitutional: Reports as per HPI Eyes: Reports as per HPI Reports as per HPI Cardiovascular: Reports as per HPI Respiratory: Reports as per HPI Gastrointestinal: Reports as per HPI Musculoskeletal: Reports as per HPI Skin/Breast: Reports as per HPI Reports as per HPI Psychiatric: Reports as per HPI Endocrine: Reports as per HPI Hematologic/Lymphatic: Reports as per HPI Allergic/Immunologic: Reports as per HPI Mental Status Exam Mental Status Exam Narrative: Appearance: Casually dressed, adequate hygiene Behavior: Talkative. Calm and cooperative throughout the interview. Eye contact is appropriate, and there are no signs of psychomotor agitation or retardation Speech: Normal volume and prosody Thought process: Logical and goal-directed Thought content: Future oriented no self-harming thoughts Mood: Calm Affect: Constricted SI:denies HI:denies VH/AH:none Delusions: None Insight/judgment: Fair insight and judgment Memory/cog: Alert, oriented x 4. grossly intact to conversational testing Patient Appearance: Appropriate Patient Orientation: Person, Place, Time and Situation Level of Consciousness: Alert Patient Behavior: Appropriate, Talkative, Cooperative and Good Eye Contact Mood Description: Anxious and Apprehensive Affect Description: Anxious and Apprehensive Patient Cognition Impaired: No Ability to Follow Directions: Good Speech Pattern: Spontaneous Speech Memory Description: Episodic Impaired Diagnostics Vital Signs (24Hr): Vital Signs - 24 hr 03/24/25 15:31 03/24/25 20:00 03/25/25 08:00 Temperature 97.6 F 97.8 F Pulse Rate 103 H 103 H 96 Respiratory Rate 18 18 Blood Pressure 127/73 123/80 121/73 Pulse Oximetry 96 97 Oxygen Delivery Method Room Air Room Air BMI result Body Mass Index 32.3 Labs 03/15/25 17:57 03/16/25 07:54 Medications Medications Current Medications Acetaminophen (Acetaminophen 325 Mg Tablet) 650 mg PO Q6H PRN PRN Reason: Headache/Pain, Scale 1-10 Last Admin: 03/22/25 06:11 Dose: 650 mg Al Hydroxide/Mg Hydroxide (Magnesium Hydrox/Alum Hydrox 30 Ml Oral.Susp) 30 ml PO Q6H PRN PRN Reason: Heartburn/Nausea Amphetamine/Dextroamphetamine (Amphetamine Mixed Salts 10 Mg Tablet) 30 mg PO DAILY [facility] Last Admin: 03/25/25 08:33 Dose: 30 mg Amphetamine/Dextroamphetamine (Dextroamphetamine/Amphetamine Xr 10 Mg Cap.Er.24h) 30 mg PO DAILY@1200 [facility] Last Admin: 03/24/25 11:01 Dose: 30 mg Diazepam (Diazepam 5 Mg Tablet) 10 mg PO TID PRN PRN Reason: severe anxiety Last Admin: 03/24/25 17:02 Dose: 10 mg Diphenhydramine HCl (Diphenhydramine Hcl 25 Mg Capsule) 25 mg PO QID@0700,1200,1600,2100 [facility] Last Admin: 03/25/25 06:35 Dose: Not Given Duloxetine HCl (Duloxetine Hcl 20 Mg Capsule.Dr) 40 mg PO BIDWM [facility] Last Admin: 03/25/25 08:35 Dose: 40 mg Epinephrine (Epinephrine 1 Mg/Ml Vial) 0.3 mg IM DAILY PRN PRN Reason: auto immune reaction Hydroxyzine HCl (Hydroxyzine Hcl 25 Mg Tablet) 25 mg PO Q6H PRN PRN Reason: mild anxiety Last Admin: 03/23/25 19:28 Dose: 25 mg Magnesium Hydroxide (Milk Of Magnesia 30 Ml Oral.Susp) 30 ml PO DAILY PRN PRN Reason: Constipation Nicotine (Nicotine 21 Mg Patch.Td24) 21 mg TRANSDERMA DAILY PRN PRN Reason: nicotine craving Nicotine Polacrilex (Nicotine Polacrilex 2 Mg Gum) 2 mg BUCCAL Q2H PRN PRN Reason: Nicotine Cravings Olanzapine (Olanzapine Odt 10 Mg Tab.Rapdis) 10 mg TRANSLINGU BID [facility] Last Admin: 03/25/25 08:35 Dose: 10 mg Olanzapine (Olanzapine 5 Mg Tablet) 5 mg PO Q4H PRN PRN Reason: anxiety Propranolol HCl (Propranolol Hcl 10 Mg Tablet) 30 mg PO TID [facility]; Protocol Last Admin: 03/25/25 08:34 Dose: 30 mg Trazodone HCl (Trazodone Hcl 50 Mg Tablet) 50 mg PO BEDTIME MRX1 PRN PRN Reason: Insomnia Allergies Allergies Allergy/AdvReac Type Severity Reaction Status Date / Time gluten AdvReac Gastrointestinal Verified 03/15/25 16:31 Upset lithium AdvReac Unknown Verified 03/15/25 16:31 wheat AdvReac Gastrointestinal Verified 03/15/25 16:31 Upset Assessment & Plan Assessment & Plan (1) PTSD (post-traumatic stress disorder): Status: Acute Code(s): F43.10 - Post-traumatic stress disorder, unspecified (2) Bipolar disorder with psychotic features: Status: Acute Code(s): F31.9 - Bipolar disorder, unspecified Plan 03/17: Continue med regime/eval of sx 03/19: Continue tx 03/20: Continue current treatment regimen. 03/21: Family meeting 03/22 Continue current plan DC on 03/24. 03/22: Encouraged group work on her response to ex-husbands statements which can be destabilizing 03/23: Continue current management and treatment plan. 03/24: continue current management and treatment plan. DC early in the week. 03/25: continue current management and treatment plan. Reason for continued inpatient stay Substantial Risk for: harm to self, inability to function and rapid decompensation Time Spent With Patient Time: Total time managing care of this patient today ____ minutes.
[2025-03-25] MEDS: Dextroamphetamine/Amphetamine XR 10 MG CAP.ER.24H 30 MG PO (11:01)
[2025-03-25 14:00] VITALS: BP 124/71; PULSE 101
[2025-03-25 20:39] VITALS: BP 116/70; PULSE 94; RESP 20; TEMP 36.9; O2SAT 97
[2025-03-26 08:00] VITALS: BP 130/80; PULSE 79; RESP 15; TEMP 36.7; O2SAT 97
[2025-03-26] MEDS: Amphetamine Mixed Salts 10 MG TABLET 30 MG PO (08:33)
[2025-03-26] MEDS: OLANZapine ODT 10 MG TAB.RAPDIS TRANSLINGU ×2 (08:34→22:25)
[2025-03-26] MEDS: Dextroamphetamine/Amphetamine XR 10 MG CAP.ER.24H 30 MG PO (11:02)
[2025-03-26 14:30] VITALS: BP 127/79; PULSE 104
--- NOTE | 2025-03-26 16:23 | HO.PSYCHPN ---
Subjective Subjective Date of Service: 03/26/25 Reason For Visit: decompenstated, disorganized thoughts/tangetial Subjective Notes: Conditional Voluntary Healthcare Proxy: No Guardianship: No Medical Problems Affecting Mental Status: No Interim History: Review of family meeting outcome with pt who is pleased with results. Discussed ex-husbands attempts to gaslight, destabilize pt with his comments. Pt has an agency that is in place to monitor communication from . We discussed using this agency so the communication could be more focused on objective, concrete information regarding the children's needs and not an opportunity for ex to vent his anger and attempt to destabilize pt. Call to [facility] [address] [place] [address] (formerly [facility]) to discuss appt for pt as she was told she was in need of a hysterectomy. Yi is assigned as her navigator and will call tw or pr to schedule an appt [phone]. Pt plans to discharge 03/27. Medication Compliance: Yes Side effects from medications: No Attending Groups: Intermittent Review of Systems as noted Medical Review of Systems: unchanged Review of Systems Review of Systems Denies Mental Status Exam Mental Status Exam Patient Appearance: Appropriate Patient Orientation: Person, Place, Time and Situation Level of Consciousness: Alert Patient Behavior: Appropriate, Talkative, Cooperative and Good Eye Contact Mood Description: Anxious and Apprehensive Affect Description: Anxious and Apprehensive Patient Cognition Impaired: No Ability to Follow Directions: Good Speech Pattern: Spontaneous Speech Memory Description: Episodic Impaired Hallucinations: None Delusions: Not Present Perceptual Disturbances: Depersonalization and Derealization Thought Process: Goal Oriented Thought Content: positive for Goal Oriented Depressive Symptoms: Thoughts of /Suicide (denies) Judgement: Good Diagnostics Vital Signs (24Hr): Vital Signs - 24 hr 03/25/25 20:39 03/26/25 08:00 03/26/25 14:30 Temperature 98.5 F 98.0 F Pulse Rate 94 79 104 H Respiratory Rate 20 15 Blood Pressure 116/70 130/80 127/79 Pulse Oximetry 97 97 Oxygen Delivery Method Room Air Room Air BMI result Body Mass Index 32.3 Labs 03/15/25 17:57 03/16/25 07:54 Medications Medications Current Medications Acetaminophen (Acetaminophen 325 Mg Tablet) 650 mg PO Q6H PRN PRN Reason: Headache/Pain, Scale 1-10 Last Admin: 03/22/25 06:11 Dose: 650 mg Al Hydroxide/Mg Hydroxide (Magnesium Hydrox/Alum Hydrox 30 Ml Oral.Susp) 30 ml PO Q6H PRN PRN Reason: Heartburn/Nausea Amphetamine/Dextroamphetamine (Amphetamine Mixed Salts 10 Mg Tablet) 30 mg PO DAILY [facility] Last Admin: 03/26/25 08:33 Dose: 30 mg Amphetamine/Dextroamphetamine (Dextroamphetamine/Amphetamine Xr 10 Mg Cap.Er.24h) 30 mg PO DAILY@1200 [facility] Last Admin: 03/26/25 11:02 Dose: 30 mg Diazepam (Diazepam 5 Mg Tablet) 10 mg PO TID PRN PRN Reason: severe anxiety Last Admin: 03/26/25 14:32 Dose: 10 mg Diphenhydramine HCl (Diphenhydramine Hcl 25 Mg Capsule) 25 mg PO QID@0700,1200,1600,2100 [facility] Last Admin: 03/26/25 11:17 Dose: Not Given Duloxetine HCl (Duloxetine Hcl 20 Mg Capsule.Dr) 40 mg PO BIDWM [facility] Last Admin: 03/26/25 08:34 Dose: 40 mg Epinephrine (Epinephrine 1 Mg/Ml Vial) 0.3 mg IM DAILY PRN PRN Reason: auto immune reaction Hydroxyzine HCl (Hydroxyzine Hcl 25 Mg Tablet) 25 mg PO Q6H PRN PRN Reason: mild anxiety Last Admin: 03/25/25 20:41 Dose: 25 mg Magnesium Hydroxide (Milk Of Magnesia 30 Ml Oral.Susp) 30 ml PO DAILY PRN PRN Reason: Constipation Nicotine (Nicotine 21 Mg Patch.Td24) 21 mg TRANSDERMA DAILY PRN PRN Reason: nicotine craving Nicotine Polacrilex (Nicotine Polacrilex 2 Mg Gum) 2 mg BUCCAL Q2H PRN PRN Reason: Nicotine Cravings Olanzapine (Olanzapine Odt 10 Mg Tab.Rapdis) 10 mg TRANSLINGU BID [facility] Last Admin: 03/26/25 08:34 Dose: 10 mg Olanzapine (Olanzapine 5 Mg Tablet) 5 mg PO Q4H PRN PRN Reason: anxiety Propranolol HCl (Propranolol Hcl 10 Mg Tablet) 30 mg PO TID [facility]; Protocol Last Admin: 03/26/25 14:31 Dose: 30 mg Trazodone HCl (Trazodone Hcl 50 Mg Tablet) 50 mg PO BEDTIME MRX1 PRN PRN Reason: Insomnia Last Admin: 03/25/25 20:41 Dose: 50 mg Allergies Allergies Allergy/AdvReac Type Severity Reaction Status Date / Time gluten AdvReac Gastrointestinal Verified 03/15/25 16:31 Upset lithium AdvReac Unknown Verified 03/15/25 16:31 wheat AdvReac Gastrointestinal Verified 03/15/25 16:31 Upset Assessment & Plan Assessment & Plan (1) PTSD (post-traumatic stress disorder): Status: Acute Code(s): F43.10 - Post-traumatic stress disorder, unspecified (2) Bipolar disorder with psychotic features: Status: Acute Code(s): F31.9 - Bipolar disorder, unspecified Plan 03/17: Continue med regime/eval of sx 03/19: Continue tx 03/20: Continue current treatment regimen. 03/21: Family meeting 03/22 Continue current plan DC on 03/24. 03/22: Encouraged group work on her response to ex-husbands statements which can be destabilizing 03/23: Continue current management and treatment plan. 03/24: continue current management and treatment plan. DC early in the week. 03/25: continue current management and treatment plan. 03/26: DC 03/27 Reason for continued inpatient stay Substantial Risk for: rapid decompensation Time Spent With Patient Time: Total time managing care of this patient today ____ minutes.
[2025-03-26 22:25] VITALS: BP 130/89; PULSE 91
[2025-03-26 22:52] VITALS: BP 130/89; PULSE 91; RESP 16; TEMP 36.7; O2SAT 98
[2025-03-27 08:00] VITALS: BP 128/86; PULSE 106; RESP 18; TEMP 36.8; O2SAT 96
[2025-03-27] MEDS: OLANZapine ODT 10 MG TAB.RAPDIS TRANSLINGU (08:08)
[2025-03-27] MEDS: Amphetamine Mixed Salts 10 MG TABLET 30 MG PO (08:08)
[2025-03-27] MEDS: Dextroamphetamine/Amphetamine XR 10 MG CAP.ER.24H 30 MG PO (11:09)
--- NOTE | 2025-03-27 12:37 | PM.PSYDC ---
DS: Providers Provider Date of Service: 03/27/25 Date of admission: 03/15/25 19:45 Date of discharge: 03/27/25 Primary care physician: Unknown Physician Admitting clinician: Paige Mccallum Attending physician on admission: Cheok Ferguson Attending physician on discharge: Cheko Ferguson Discharging clinician: Paige Mccallum DS: Diagnosis Discharge Diagnosis (1) PTSD (post-traumatic stress disorder): Status: Acute (2) Bipolar disorder with psychotic features: Status: Acute DS: Medications Discharge Medications Home Medications: Previous Rx's ?Medication ?Instructions ?Recorded acetaminophen 325 mg tablet 650 mg (2 x 325 mg) PO Q6H PRN 02/27/25 Headache/Pain, Scale 1-10 #0 tabs dextroamphetamine-amphetamine 30 30 mg PO QAM #30 tabs 03/26/25 mg tablet (Adderall) dextroamphetamine-amphetamine ER 30 mg PO QNOON #30 caps 03/26/25 30 mg 24hr capsule,extend release (Adderall XR) diazepam 10 mg tablet 10 mg PO TID PRN severe anxiety 03/26/25 #90 tabs duloxetine 20 mg capsule,delayed 40 mg (2 x 20 mg) PO BIDWM #60 caps 03/26/25 release epinephrine 1 mg/mL (1 mL) 0.3 mg (0.3 mL) IM DAILY PRN auto 03/26/25 injection solution (Adrenalin) immune reaction #1 mL olanzapine 10 mg tablet 10 mg PO BID #60 tabs 03/26/25 propranolol 10 mg tablet 30 mg PO TID #90 tabs 03/26/25 trazodone 50 mg tablet 50 mg PO BEDTIME MRX1 PRN Insomnia 03/26/25 #60 tabs Mental Status Exam Mental Status Exam Patient Appearance: Appropriate Patient Orientation: Person, Place, Time and Situation Level of Consciousness: Alert Patient Behavior: Appropriate, Talkative, Cooperative and Good Eye Contact Mood Description: Anxious and Apprehensive Affect Description: Anxious and Apprehensive Patient Cognition Impaired: No Ability to Follow Directions: Good Speech Pattern: Spontaneous Speech Memory Description: Episodic Impaired Hallucinations: None Delusions: Not Present Perceptual Disturbances: Depersonalization and Derealization Thought Process: Goal Oriented Thought Content: positive for Goal Oriented Depressive Symptoms: Thoughts of /Suicide (denies) Judgement: Good DS: Summary Hospital Course Hospital Course: Admission to adult psychiatry for exacerbation of bipolar disorder with psychotic features and PTSD. Recent discharge from [facility]. Pt reports having an out pt appt and not having her olanzapine refilled. As a result she stopped it with increasing sx and perioral TC. Medicaitons are evaluated and adjusted. Olanzapine was reintroduced with resolution of perioral TD and re-stabilization. Pt participated in meetings with her parents, her children's hosiery repairer and her new thread machine operator. She was able to re-establish stability and continue her work on stabilization and her process of return of custody of her children with the courts. Pt will continue to follow up with [facility] and her PCP. Contact was made with [facility] for follow up appt as pt has been told she is in need of a hysterectomy. chef kitchen manager Yi will be in contact with pt. to scheduled this appointment. Status at Discharge Functional status at discharge: independent ambulation Overall status at discharge: patient is back to baseline Time Spent with Patient Time attestation: Total time managing care of this patient today ____ minutes. Time spent: Less than 30 minutes Discharge Plan Discharge Anticipated Discharge Date/Time: 03/27/25 10:12 Patient Disposition: Home, Self-Care Discharge Diagnosis: PTSD Bipolar Disorder with Psychosis Referrals: Jennifer Singh: [facility] (therapy) [Other] - 04/01/25 11:00 am Referral Note: Hospital discharge appointment with therapist Rema Gil: [facility] (psychiatry) [Other] - 04/11/25 12:30 pm Referral Note: Hospital discharge appointment with psychiatric medication provider Bogdan Pearce FNP-BC [Nurse Practitioner, Internal Medicine] - 04/03/25 11:00 am Discharge Medications: New epinephrine [Adrenalin] 1 mg/mL (1 mL) Solution 0.3 mg IM DAILY PRN (Reason: auto immune reaction) Qty: 1 0RF olanzapine 10 mg tablet 10 mg PO BID Qty: 60 0RF Continued acetaminophen 325 mg Tablet 650 mg PO Q6H PRN (Reason: Headache/Pain, Scale 1-10) Qty: 0 0RF trazodone 50 mg Tablet 50 mg PO BEDTIME MRX1 PRN (Reason: Insomnia) Qty: 60 0RF propranolol 10 mg Tablet 30 mg PO TID Qty: 90 0RF Protocol: Hold for SBP/HR < HOLD for SBP < : 90 HOLD for HR < : 60 diazepam 10 mg Tablet 10 mg PO TID PRN (Reason: severe anxiety) Qty: 90 0RF duloxetine 20 mg capsule,delayed release(DR/EC) 40 mg PO BIDWM Qty: 60 0RF Changed dextroamphetamine-amphetamine [Adderall] 30 mg tablet 30 mg PO QAM Qty: 30 0RF Rx Instructions: Partial Fill upon patient request. dextroamphetamine-amphetamine [Adderall XR] 30 mg capsule,extended release 24hr 30 mg PO QNOON Qty: 30 0RF Rx Instructions: Partial Fill upon patient request. Discontinued epinephrine 0.3 mg/0.3 mL auto-injector 1 mg IM DAILY diphenhydramine HCl [Banophen] 25 mg capsule 25 mg PO Q6H Discharge Orders: Discharge Order (Routine); Ordered 03/27/25 Ordered By: Paige Mccallum Diet: Advance to usual diet Activity on Discharge: As tolerated Stand Alone Forms: Patient Portal Discharge page, Community Support Print Language: Hong Konger Care Plan Goals: Mood and Behavioral Stabilization Health Concerns: Mood and Behavioral Stabilization Plan of Treatment: Attend scheduled appointments Take medications as directed Assessment: No SI,HI,AH,VH No sx of acute bryce or psychosis Discharge Date/Time: 03/27/25 11:53
== END 2025-03-27 11:53 | disposition home or self-care (01) | DRG 885 ==
LOC: HO.ED 18:36 → HO.PM5 19:46
PROVIDERS: Physician Assistant Medical; Admitting Provider Nurse Practitioner Psychiatric/Mental Health; Emergency Provider Emergency Medicine; Visit Provider Clinical Nurse Specialist Psychiatric/Mental Health, Adult
DX: F31.9 Bipolar disorder, unspecified (principal); Z59.01 Sheltered homelessness; F43.10 Post-traumatic stress disorder, unspecified; F90.9 Attention-deficit hyperactivity disorder, unspecified type; Z20.822 Contact with and (suspected) exposure to COVID-19; Z79.899 Other long term (current) drug therapy
CPT/HCPCS: 36415; 80053; 80061; 80143; 80179; 80307; 81001; 81025; 83036; 84439; 84443; 85025; 87635; 99285; S9485

== ENCOUNTER → 2025-03-15 19:45 | Outpatient (BNV) | payer OTHER, MEDICARE, MEDICAID, SELFPAY | PROVIDERS: Admitting Provider Nurse Practitioner Psychiatric/Mental Health; Emergency Provider Emergency Medicine; Visit Provider Clinical Nurse Specialist Psychiatric/Mental Health, Adult | DX: F43.10 Post-traumatic stress disorder, unspecified (principal); F31.9 Bipolar disorder, unspecified | CPT/HCPCS: 90792 ==

== ENCOUNTER 2025-05-01 20:40 | Inpatient (IN) | payer OTHER, MEDICARE, SELFPAY ==
--- NOTE | ~2025-05-01 | XR_ITS ---
CLINICAL HISTORY: stubbed toe 2 days ago 3 view left 1st toe Comparison: None provided Findings: Bones intact. No dislocations. No significant loss of joint space or osteophytes. No erosions. No radiopaque foreign body. IMPRESSION: 1. No acute fracture. This document has been electronically signed by: Rosita Soni MD on 05/01/2025 21:40:27
[2025-05-01 20:42] VITALS: BP 155/95; PULSE 101; RESP 16; TEMP 36.3; O2SAT 96; BMI 32.7
--- NOTE | 2025-05-01 20:43 | ED_ITS ---
HPI - Psych General Chief Complaint: Psychiatric Symptoms Stated Complaint: Needs psych meds Time Seen by Provider: 05/01/25 21:23 Source: patient Mode of arrival: ambulatory Limitations: no limitations History of Present Illness ED Provider: DR. Rubio HPI Narrative: 49-year-old female with pertinent history of PTSD, bipolar, ADHD, anxiety, HTN, patient is going through a divorce and children custody via court with increased anxiety patient ran out of her medication for the last 3-4 days patient was asked to come back to the ED for psych admission and resume all her medication while she is in the hospital. Patient also left great toe injury while she was cleaning the house got struck by the vacium. No SI, no HI, no hallucination. Related Data Home Medications ?Medication ?Instructions ?Recorded ?Confirmed norethindrone acetate 5 mg tablet 5 mg PO DAILY 05/01/25 propranolol 20 mg tablet 30 mg PO TID 05/01/25 olanzapine 10 mg tablet PO 05/02/25 Previous Rx's ?Medication ?Instructions ?Recorded dextroamphetamine-amphetamine 30 30 mg PO QAM #30 tabs 03/26/25 mg tablet (Adderall) dextroamphetamine-amphetamine ER 30 mg PO QNOON #30 ca ps 03/26/25 30 mg 24hr capsule,extend release (Adderall XR) diazepam 10 mg tablet 10 mg PO TID PRN severe anxi ety 03/26/25 #90 tabs duloxetine 20 mg capsule,delayed 40 mg (2 x 20 mg) PO BIDWM #60 caps 03/26/25 release trazodone 50 mg tablet 50 mg PO BEDTIME MRX1 PRN In somnia 03/26/25 #60 tabs Allergies Allergy/AdvReac Type Severity Reaction Status Date / Time gluten AdvReac Gastrointestinal Verified 05/01/25 20:48 Upset lithium AdvReac Unknown Verified 05/01/25 20:48 wheat AdvReac Gastrointestinal Verified 05/01/25 20:48 Upset Review of Systems 2 Review of Systems: All other systems are reviewed and are negative Constitutional: Reports as per HPI and Reports no additional constitutional complaints Eyes: Reports as per HPI and Reports no additional eye complaints Reports system reviewed and no additional complaints, except as documented Cardiovascular: Reports as per HPI and Reports no additional cardiovascular complaints Respiratory: Reports as per HPI and Reports no additional respiratory complaints Gastrointestinal: Reports as per HPI and Reports no additional gastrointestinal complaints Genitourinary: Reports no additional female genitourinary complaints Musculoskeletal: Reports no additional musculoskeletal complaints Skin/Breast: Reports system reviewed and no additional complaints, except as docu Psychiatric: Reports no additional psychiatric complaints Endocrine: Reports no additional endocrine complaints Hematologic/Lymphatic: Reports no additional hematologic/lymphatic complaints Allergic/Immunologic: Reports no additional allergic/immunologic complaints Reports system reviewed and no additional complaints, except as documented and Reports Abnormal speech present [facility] Past Medical History Medical History Mood disorder with psychosis Bennett exposure Ethan Marrero infection ADHD Anxiety PTSD (post-traumatic stress disorder) Mast cell activation Lyme disease Social History Social History Household Members: None Housing: Apartment Housing Other:: woman's custodial Do you presently have visiting nurse or other home services: No Alcohol intake: current Alcohol intake frequency: holidays/special occasions only Patient Tobacco Use Status: Never used Tobacco Smoked in Last 30 Days: No e-Cigarette/Vaping Use: Never Used Patient Interested in Nicotine Replacement: No (n/a) Patient Given Instructions on How to Stop Smoking: No (n/a) Second Hand Smoke Exposure: No Use of substances other than those prescribed or required for medical reasons: No Have you been hit, kicked, punched, or otherwise hurt by someone within the past year? If so, by whom?: No Do you feel safe in your current relationship?: No Is there a partner from a previous relationship who is making you feel unsafe now?: No Are you made to feel afraid or neglected: No Advance Directives: No Advance Directives Information Provided: Yes Do you have a plan to hurt others: No Plan Recently lost weight without trying: No Eating poorly because of decreased appetite: No Nutrition Risks: No Nutritional Risk Patient : No : No Poor oral hygiene: No service: No Sexual orientation: Straight/Heterosexual Physical Exam 2 Vital Signs: Vital Signs: Last Vital Signs Temp 97.7 F 05/02/25 14:19 Pulse 83 05/02/25 14:19 Resp 20 05/02/25 14:19 BP 135/92 H 05/02/25 14:19 Pulse Ox 97 05/02/25 14:19 O2 Del Method Room Air 05/02/25 14:19 BMI result Body Mass Index 32.7 Vital signs have been reviewed and appear to be correct. Blood pressure elevated. Heart rate Elevated. Respiratory rate normal. Temperature normal. Oxygen saturation normal. Appearance: Alert. Oriented X3. No acute distress. Head: Normal external exam. Normocephalic. Atraumatic. No Mcdonald signs noted. No raccoon eyes noted Eyes: PERRLA. EOMI. Conjunctiva and sclera normal. Eyelids normal. ENT: TM's Normal. Pharynx normal. Uvula midline. Moist mucous membranes. No trismus noted. No drooling noted. No muffled voice noted. Neck: Normal inspection. Neck supple. FROM. No adenopathy. Thyroid Normal. No meningeal signs. No neck mass noted. CVS: Normal heart rate and rhythm. Heart sound normal. No murmurs noted. Pulses normal throughout. Respiratory: No respiratory distress. Painless inspiration. Breath sounds normal. No wheezes/rales/rhonchi noted. Chest nontender. No accessory muscle usage noted or decreased air movement noted. Abdomen: Soft and nontender. Bowel sounds normal in all 4 quadrants. No distention noted. No organomegaly noted. No visible injury noted. Back: No CVA tenderness. Full range of motion noted. Skin: Skin warm and dry. Normal skin color. Normal skin turgor. No rashes/lesions/lacerations noted. Extremities: Left foot examination: Great left toe nail partial dislodgement, no subungual hematoma, no active bleeding, no fluctuation, no sign of infection. Neuro: Oriented X 3. Cranial nerve exam: II-XII are grossly intact No motor deficit. No sensory deficit. Reflexes normal. Patient Orientation: Person, Place, Time and Situation, okay hygiene and grooming. Fair eye contact, attentive, no tics or tremors. Level of Consciousness: Awake, Appropriate and Alert Patient Behavior: Appropriate, Guarded, Cooperative and Anxious Mood Description: Constricted, Blunted and Apprehensive Affect Description: Constricted, Blunted and Apprehensive Patient Cognition Impaired: No Ability to Follow Directions: Excellent Speech Pattern: Clear, Appropriate and Spontaneous Speech, nonpressured, spontaneous with regular rate and rhythm, normal volume and prosody. No dysarthria. Memory Description: Intact, Immediate Intact and Short Term Intact Hallucinations: None Delusions: Not Present Thought Process: Intact Thought Content: positive for Intact, positive for Logical, denies Suicidal Ideation and denies Homicidal Ideation. Depressive Symptoms: Not present. Judgement and Insight: Limited but adequate. Course Course Course Narrative: This is a RME preformed in triage by Jeanine Riley PA-C. Date: 05/01/2025, time 844 pm. Patient presents with increased mental health sxs Mary been out of my meds, PCP says come in to get meds straightened out . Increased anxiety of divorce and children in court. Olanzipine 3 days and propanolol for 2 days. Raul Bryant MD wanted her to come her- with expectation to admit. She is on disability for chronic Lyme. PE: artificial gel on toe, Left big toe avulsed at the distal nailfold, hit it 2 days ago. no redness. Pressured speech Work UP: EKG, LEft toe xr, crisis work up Will defer full ROS and PE to treating provider. Patient will continued to be monitored in the interim. Reevaluation(s) Reevaluation #1: Medically cleared, await for care team evaluation, start physician observation now. Time: 22:00 Reevaluation #2: Time: 10:41 Date: 05/02/25 Provider: Mehrdad Chavez, DO Patient in physician observation for psychiatric evaluation.? No acute events reported overnight. No current complaints. VS stable.? Time: 06:00 Medications Administered Generic Name Dose Route Start Last Admin Trade Name Freq PRN Reason Stop Dose Admin Amphetamine/Dextroamphetamine 30 mg 05/02/25 12:00 05/02/25 12:30 Dextroamphetamine/Amphetamine Xr 10 Mg Cap.Er.24h PO 30 mg DAILY@1200 CHARLIE Administration Diazepam 10 mg 05/02/25 10:51 05/02/25 15:04 Diazepam 5 Mg Tablet PO 10 mg TID PRN Administration severe anxiety Propranolol HCl 30 mg 05/02/25 15:00 05/02/25 15:04 Propranolol Hcl 10 Mg Tablet PO 30 mg TID CHARLIE Administration Protocol Medical Decision Making Differential Diagnosis Differential Diagnoses: The differential diagnosis associated with the presentation includes ( Medical clearance, electrolyte derangement, severe anemia, left agreed to fracture, psych evaluation.) Admission/Observation Consideration of admission/observation: Escalation of care including admission/observation considered Lab Data MDM Lab Attestation statement: I reviewed the patient's lab results. 05/01/25 21:01 05/01/25 21:01 Labs: Lab Results 05/01/25 05/01/25 05/01/25 Range/Units 21:01 21:50 21:51 WBC 9.2 (4.8-10.8) X10*3/uL RBC 4.46 (4.20-5.50) X10*6/uL Hgb 12.3 (12.0-16.0) g/dl Hct 38.4 (37.0-47.0) % MCV 86.1 (80.0-98.0) fL MCH 27.6 (27.0-33.0) pg MCHC 32.0 (31.0-35.0) g/dl RDW 15.9 (11.0-16.0) % Plt Count 514 H (160-400) X10*3/uL MPV 9.1 L (9.4-12.3) fL Immature Gran % (Auto) 0.5 H (0.0-0.4) % Neut % (Auto) 64.3 (45-73) % Lymph % (Auto) 24.2 (20-40) % Bennett % (Auto) 5.8 (2-11) % Eos % (Auto) 4.1 H (0-4) % Baso % (Auto) 1.1 (0-2) % Lymph # (Auto) 2.2 (1.2-4.9) X10*3/uL Bennett # (Auto) 0.5 (0.1-1.2) X10*3/uL Eos # (Auto) 0.4 (0.0-0.4) X10*3/uL Baso # (Auto) 0.1 (0.0-0.2) X10*3/uL Abs Immat Gran (auto) 0.05 H (0.00-0.03) X10*3/uL Absolute Neuts (auto) 5.9 (2.0-8.3) x10*3/uL Absolute Nucleated RBC 0.000 (0.0-0.012) X10*3/uL Nucleated RBC % (auto) 0.0 (0.0-0.2) /100WBC Sodium 138 (135-145) mmol/L Potassium 4.1 D (3.3-5.1) mmol/L Chloride 108 (96-108) mmol/L Carbon Dioxide 23 (22-29) mmol/L Anion Gap 11 L (12-20) BUN 9 (9-16) mg/dL Creatinine 0.80 (0.5-1.4) mg/dL Estim Creat Clear Calc 116.7 Estimated GFR > 60 Random Glucose 108 (60-115) mg/dL Calcium 9.0 (8.4-10.2) mg/dL Total Bilirubin 0.2 (0.0-1.0) mg/dL AST 44 H (5-31) U/L ALT 52 H (0-31) U/L Alkaline Phosphatase 75 (39-117) U/L Total Protein 7.7 (6.5-8.0) g/dL Albumin 4.7 (3.5-5.0) g/dL Urine Color Dark Yellow Urine Appearance Clear Urine pH 5.0 (5.0-9.0) Ur Specific [place] 1.020 (1.005-1.025) Urine Protein 100 (2+) H (Neg-Trace) mg/dL Urine Glucose (UA) Negative (Negative) mg/dL Urine Ketones Negative (Negative) mg/dL Urine Blood Large (3+) H (Negative) Urine Nitrite Negative (Negative) Ur Leukocyte Esterase Trace H (Negative) Urine RBC >20 H (0-2) /HPF Urine WBC 0-5 (0-5) /HPF Ur Squamous Epith Cells 0-2 (0-2) /HPF Urine Bacteria None Seen (None Seen) Hyaline Casts 0-2 (0-2) /LPF Urine Test NEGATIVE (NEGATIVE) Salicylates < 5.0 L (15-30) mg/dL Urine Opiates Screen Not Detected (Not Detect) Ur Buprenorphine Scrn Not Detected (Not Detect) ng/mL Ur Oxycodone Screen Not Detected (Not Detect) ng/mL Urine Methadone Screen Not Detected (Not Detect) ng/mL Urine Fentanyl Screen Not Detected (Not Detect) Acetaminophen < 3 (<30) mcg/mL Ur Barbiturates Screen Not Detected (Not Detect) Ur Phencyclidine Scrn Not Detected (Not Detect) Ur Amphetamines Screen POSITIVE H (Not Detect) U Benzodiazepines Scrn POSITIVE H (Not Detect) Urine Cocaine Screen Not Detected (Not Detect) U Marijuana (THC) Screen Not Detected (Not Detect) Ethyl Alcohol < 10 mg/dL COVID-19 (JINA) Negative (Negative) COVID-19 Clin Com See Note Independent Interpretation I performed an independent interpretation of an: Plain X-Ray ( Left Great toe x-ray: No acute fracture.) Radiology Impression Discussion of test interpretation with radiology: I have reviewed the radiologist's reading. Discharge Plan Discharge Clinical Impression: Bipolar disorder Patient Disposition: Admitted As Inpatient Interventions: Admission Worksheet (ED) Last Done: 05/02/25 13:24 Discharge Date/Time: 05/02/25 14:03
--- NOTE | 2025-05-01 20:50 | ECG_ITS ---
Test Reason : QTC CHECK Blood Pressure : */* mmHG Vent. Rate : 88 BPM Atrial Rate : 88 BPM P-R Int : 158 ms QRS Dur : 86 ms QT Int : 368 ms P-R-T Axes : 38 15 29 degrees QTcB Int : 445 ms Normal sinus rhythm Possible Left atrial enlargement Borderline ECG When compared with ECG of 29-Jan-2025 23:27, Nonspecific T wave abnormality no longer evident in Lateral leads Referred By: Jeanine Riley Electronically Signed By: DAPHNE TIDWELL MD
--- NOTE | 2025-05-01 20:58 | PC.NURSE ---
Pt wanted to ensure that: Abbi Peter: [phone] Mary Dodson [phone] number's included in triage.
[2025-05-01 21:10] LABS: MANUAL DIFF FLAG NO
[2025-05-01 21:12] LABS: Hematocrit 38.4 % (37.0-47.0); Hemoglobin 12.3 g/dl (12.0-16.0); Imm Gran Abs Auto 0.05 X10*3/uL (0.00-0.03); Imm Gran Pct Auto 0.5 % (0.0-0.4); Lymphocytes Absolute Auto 2.2 X10*3/uL (1.2-4.9); Mean Corpuscular HGB Conc 32.0 g/dl (31.0-35.0); Mean Corpuscular Hemoglobin 27.6 pg (27.0-33.0); Mean Corpuscular Volume 86.1 fL (80.0-98.0); NRBC Abs Auto 0.000 X10*3/uL (0.0-0.012); NRBC Pct Auto 0.0 /100WBC (0.0-0.2); Platelet Count 514 X10*3/uL (160-400); Red Blood Count 4.46 X10*6/uL (4.20-5.50); White Blood Count 9.2 X10*3/uL (4.8-10.8)
[2025-05-01 21:26] LABS: Acetaminophen LAB < 3 mcg/mL (<30); Salicylate < 5.0 mg/dL (15-30)
[2025-05-01 21:28] LABS: Alanine Aminotransferase 52 U/L (0-31); Albumin Level 4.7 g/dL (3.5-5.0); Alkaline Phosphatase 75 U/L (39-117); Anion Gap 11 (12-20); Aspartate Amino Transferase 44 U/L (5-31); Blood Urea Nitrogen 9 mg/dL (9-16); Calcium 9.0 mg/dL (8.4-10.2); Carbon Dioxide 23 mmol/L (22-29); Chloride 108 mmol/L (96-108); Creatinine Clr Calc Pharmacy 116.7; Estimated Glomerular Filt Rate > 60; Potassium 4.1 mmol/L (3.3-5.1); Sodium 138 mmol/L (135-145); Total Protein 7.7 g/dL (6.5-8.0)
--- NOTE | 2025-05-01 21:41 | PC.NURSE ---
Pt calm and cooperative, resting in bed at this time, pending CARE team eval
[2025-05-01 21:44] LABS: COVID-19 Test Negative (Negative); IDNOW Serial# 6674DD1D
[2025-05-01 22:04] LABS: Appearance Urine Clear; Glucose Urine UA Negative (Negative); PH 5.0 (5.0-9.0); Specific Gravity - Urine 1.020 (1.005-1.025); UMIC TRIGGER UA YES
[2025-05-01 22:05] LABS: UPreg QC Valid YES
[2025-05-01 22:11] LABS: Cannabinoid Screen Urine Not Detected (Not Detect)
[2025-05-02 06:37] VITALS: BP 148/95; PULSE 90; RESP 18; TEMP 36.6; O2SAT 100
--- NOTE | 2025-05-02 11:04 | PC.NURSE ---
Assumed care, report received. Pt is awake, calm and cooperative. she denies Si and is aware of POC.
[2025-05-02] MEDS: Dextroamphetamine/Amphetamine XR 10 MG CAP.ER.24H 30 MG PO (12:30)
[2025-05-02 14:19] VITALS: BP 135/92; PULSE 83; RESP 20; TEMP 36.5; O2SAT 97; BMI 32.9
--- NOTE | 2025-05-02 16:44 | PC.ADMIT ---
This is one of multiple admissions for this 49 y.o. female [facility] [place] [facility] [facility] [place] with Dx; Unspecified Bipolar Disorder, PTSD. Nurse to nurse done with [facility] [place] [facility] prior to admission. Arrived on unit at 1414 on [address] and placed on 15 min safety checks. Skin integrity check/telephone exchange operator done upon admission with 2 staff members present. Precipitating events to admission: Self presented to [facility] [place] after speaking to outpt therapist and provider re: an inpt admission for medication evaluation and mood stabilization. Increased stressors reported due to upcoming court proceedings for divorce, child custody, marital finances. Substance issues: denies; tox screen positive for Amphetamines, Benzos; pt prescribed. ETOH <10. Medical issues: HTN, left toe injury due to striking it with vacuum prior to admission. Three superficial areas noted tip of left toe. Pt reports ED MD advised her to keep clean and leave open to air. Signed CV after meeting with provider, David Mccallum APRN. Hyperverbal, tangential during admission process. Difficulty noted remaining on topic. Denies SI/HI, denies AH/VH. Spoke frequently and at length re: upcoming court date and multiple stressors re: this.
[2025-05-02] MEDS: Amphetamine Mixed Salts 10 MG TABLET 30 MG PO (17:25)
[2025-05-02 20:00] VITALS: BP 155/84; PULSE 80; RESP 16; TEMP 36.9; O2SAT 96
[2025-05-03 08:00] VITALS: BP 114/66; PULSE 75; RESP 16; TEMP 36.4; O2SAT 98
--- NOTE | 2025-05-03 08:45 | P.CONHOSP_ITS ---
History of Present Illness Data of Consult Service Date: 05/03/25 Primary Care Provider: Unknown Physician HPI Reason for consult: Medical management 72-year-old female with a past medical history of PTSD, dysfunctional uterine bleeding, mood disorder with psychosis, history of Ethan man, history of Lyme disease, bipolar disorder, ADHD, anxiety and hypertension presented to the emergency room due to increased anxiety related to running out of her medications. Notably patient also has a left great toe injury with an avulsed nail. Workup was essentially normal with no leukocytosis, no anemia, no electrolyte imbalances. Urine without evidence of infection. Her tox screen was positive for amphetamines and benzos which are both prescribed for her. No alcohol. Her left great toe with no acute fracture. Review of Systems 2 Review of Systems: Denies any shortness of breath, chest pain, palpitations, dizziness, lightheadedness, headaches, dysuria, abdominal pain or discomfort, nausea, vomiting or diarrhea. Denies chills, body aches, muscle aches, fatigue or weight loss. [facility] Medical History Mood disorder with psychosis Wetzel exposure Ethan Man infection ADHD Anxiety PTSD (post-traumatic stress disorder) Mast cell activation Lyme disease Social History Household Members: None Housing: Apartment Housing Other:: [facility] prison Do you presently have visiting nurse or other home services: No Alcohol intake: current Alcohol intake frequency: holidays/special occasions only Patient Tobacco Use Status: Never used Tobacco Smoked in Last 30 Days: No e-Cigarette/Vaping Use: Never Used Patient Interested in Nicotine Replacement: No (n/a) Patient Given Instructions on How to Stop Smoking: No (n/a) Second Hand Smoke Exposure: No Use of substances other than those prescribed or required for medical reasons: No Currently Displaying Signs/Symptoms of Drug Intoxication Withdrawal: No Have you been hit, kicked, punched, or otherwise hurt by someone within the past year? If so, by whom?: No Do you feel safe in your current relationship?: No Is there a partner from a previous relationship who is making you feel unsafe now?: No Are you made to feel afraid or neglected: No Advance Directives: No Advance Directives Information Provided: Yes Do you have thoughts of harming others: None Do you have a plan to hurt others: No Plan Recently lost weight without trying: No Eating poorly because of decreased appetite: No Nutrition Risks: No Nutritional Risk Patient : No : No Poor oral hygiene: No service: No Sexual orientation: Straight/Heterosexual Meds Allergies Allergy/AdvReac Type Severity Reaction Status Date / Time gluten AdvReac Gastrointestinal Verified 05/01/25 20:48 Upset lithium AdvReac Unknown Verified 05/01/25 20:48 wheat AdvReac Gastrointestinal Verified 05/01/25 20:48 Upset Active Medications: Current Medications Acetaminophen (Acetaminophen 325 Mg Tablet) 650 mg PO Q6H PRN PRN Reason: Headache/Pain, Scale 1-10 Al Hydroxide/Mg Hydroxide (Magnesium Hydrox/Alum Hydrox 30 Ml Oral.Susp) 30 ml PO Q6H PRN PRN Reason: Heartburn/Nausea Amphetamine/Dextroamphetamine (Dextroamphetamine/Amphetamine Xr 10 Mg Cap.Er.24h) 30 mg PO DAILY@1200 [facility] Last Admin: 05/02/25 12:30 Dose: 30 mg Amphetamine/Dextroamphetamine (Amphetamine Mixed Salts 10 Mg Tablet) 30 mg PO DAILY [facility] Last Admin: 05/02/25 17:25 Dose: 30 mg Diazepam (Diazepam 5 Mg Tablet) 10 mg PO TID PRN PRN Reason: severe anxiety Last Admin: 05/02/25 20:52 Dose: 10 mg Duloxetine HCl (Duloxetine Hcl 20 Mg Capsule.Dr) 40 mg PO BIDWM [facility] Last Admin: 05/02/25 17:24 Dose: 40 mg Hydroxyzine HCl (Hydroxyzine Hcl 25 Mg Tablet) 25 mg PO Q6H PRN PRN Reason: mild anxiety Magnesium Hydroxide (Milk Of Magnesia 30 Ml Oral.Susp) 30 ml PO DAILY PRN PRN Reason: Constipation Nicotine Polacrilex (Nicotine Polacrilex 2 Mg Gum) 4 mg BUCCAL Q2H PRN PRN Reason: Nicotine Cravings Non-Formulary Medication (Norethindrone Acetate) 5 mg PO DAILY [facility] Propranolol HCl (Propranolol Hcl 10 Mg Tablet) 30 mg PO TID [facility]; Protocol Last Admin: 05/02/25 20:23 Dose: 30 mg Trazodone HCl (Trazodone Hcl 50 Mg Tablet) 50 mg PO BEDTIME MRX1 PRN PRN Reason: Insomnia Last Admin: 05/02/25 20:23 Dose: 50 mg Home Medications ?Medication ?Instructions ?Recorded ?Confirmed ?Last Taken ?Type norethindrone acetate 5 mg tablet 5 mg PO DAILY 05/01/25 Unknown History propranolol 20 mg tablet 30 mg PO TID 05/01/25 Unknown History olanzapine 10 mg tablet (Zyprexa) 10 mg PO BID 5 05/02/25 Unknown History Physical Exam 2 Vital Signs and Narrative: Vital Signs: Last Vital Signs Temp 97.6 F 05/03/25 08:00 Pulse 75 05/03/25 08:00 Resp 16 05/03/25 08:00 BP 114/66 05/03/25 08:00 Pulse Ox 98 05/03/25 08:00 O2 Del Method Room Air 05/03/25 08:00 BMI result Body Mass Index 32.9 CONST: Alert and oriented, in NAD. Well nourished HEENT: Normocephalic, atraumatic, MMM, Eyes clear RESP: Lungs clear, RRR even and regular HEART:,RRR, S1, S2. No edema GI:Abdomen Soft NT, ND. + BS times four :Deferred SKIN: Warm dry and intact, no visible lesions or rashes NEURO:CN II-XII Intact bilaterally, Sensation intact. Speech clear PSYCH: Normal affect, mild anxiety Results Labs 05/01/25 21:01 05/03/25 08:06 Assessment and Plan (1) HTN (hypertension): Status: Acute Plan 49-year-old female with past medical history listed below presented to the ED with increasing anxiety related to running out of her medications. She is admitted to inpatient psych for stabilization. PTSD/mood disorder with psychosis/Bipolar disorder/ADHD/anxiety Treatment per psychiatric team Hypertension Well controlled on propranolol t.i.d. Dysfunctional uterine bleeding Patient continues with norethindrone daily Scheduled for a hysterectomy as an outpatient Left great toe avulsion No evidence of infection Continue to monitor and if patient develops any problems reconsult Medicine Thank you for allowing me to participate in the care of this patient. Please notify medical provider with any changes in condition or concerns.
[2025-05-03] MEDS: Amphetamine Mixed Salts 10 MG TABLET 30 MG PO (08:46)
[2025-05-03 08:58] LABS: Hemoglobin A1C 119.8543 umol/L; Total Hemoglobin (HGBA1C) 3346.1239 umol/L
[2025-05-03 09:03] LABS: Alanine Aminotransferase 56 U/L (0-31); Albumin Level 4.7 g/dL (3.5-5.0); Alkaline Phosphatase 75 U/L (39-117); Anion Gap 10 (12-20); Aspartate Amino Transferase 44 U/L (5-31); Blood Urea Nitrogen 8 mg/dL (9-16); Calcium 9.3 mg/dL (8.4-10.2); Carbon Dioxide 27 mmol/L (22-29); Chloride 109 mmol/L (96-108); Cholesterol 200 mg/dL (<200); Creatinine Clr Calc Pharmacy 124.8; Estimated Glomerular Filt Rate > 60; HDL Cholesterol 38 mg/dL (>40); Potassium 4.5 mmol/L (3.3-5.1); Sodium 141 mmol/L (135-145); Total Protein 7.9 g/dL (6.5-8.0); Triglycerides 140 mg/dL (<150)
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
[2025-05-03] MEDS: OLANZapine ODT 10 MG TAB.RAPDIS TRANSLINGU ×2 (11:38→20:55)
[2025-05-03] MEDS: Dextroamphetamine/Amphetamine XR 10 MG CAP.ER.24H 30 MG PO (11:38)
[2025-05-03 14:45] VITALS: BP 127/83; PULSE 91
[2025-05-03 20:00] VITALS: BP 124/86; PULSE 84; TEMP 36.4; O2SAT 98
[2025-05-03 20:48] VITALS: BP 124/86; PULSE 84
[2025-05-04 08:00] VITALS: BP 126/85; PULSE 90; RESP 20; TEMP 36.4; O2SAT 97
[2025-05-04] MEDS: OLANZapine ODT 10 MG TAB.RAPDIS TRANSLINGU ×2 (09:06→20:13)
[2025-05-04] MEDS: Amphetamine Mixed Salts 10 MG TABLET 30 MG PO (09:07)
--- NOTE | 2025-05-04 11:54 | HO.PSYCHPN ---
Subjective Subjective Date of Service: 05/04/25 Reason For Visit: increased psychiatric Interim History: Met with patient; discussed with team Patient said that she is feeling better. She still feels a little anxious because of upcoming court. Patient said that there was a bunch of chaos around her medications which is why she came in. Mental Status Exam Mental Status Exam Narrative: Pt is alert and oriented; behavior is isolative; a little guarded but overall calm and cooperative; patient is not in distress; dressed in casual attire with unkempt hair but adequate hygiene; mood is described as better and affect congruent; eye contact appropriate; Speech is normal rate, volume and prosody and not pressured; psychomotor retardation present; thought process is organized and goal directed; Thought content is on tx, upcoming court; otherwise pertinent to relevant topics and without any delusional content, paranoid ideations or grandiosity; denies any SI/HI. Denies AVH and there is no evidence of perceptual disturbance. Patients insight and judgment appear intact. Diagnostics Vital Signs (24Hr): Vital Signs - 24 hr 05/03/25 14:45 05/03/25 20:00 05/03/25 20:48 Temperature 97.5 F Pulse Rate 91 84 84 Respiratory Rate Blood Pressure 127/83 124/86 124/86 Pulse Oximetry 98 Oxygen Delivery Method Room Air 05/04/25 08:00 Temperature 97.6 F Pulse Rate 90 Respiratory Rate 20 Blood Pressure 126/85 Pulse Oximetry 97 Oxygen Delivery Method Room Air BMI result Body Mass Index 32.9 Labs 05/01/25 21:01 05/03/25 08:06 Labs: Laboratory Results - last 48 hr 05/03/25 08:06 Sodium 141 Potassium 4.5 Chloride 109 H Carbon Dioxide 27 Anion Gap 10 L BUN 8 L Creatinine 0.75 Estim Creat Clear Calc 124.8 Estimated GFR > 60 Random Glucose 109 Estimat Average Glucose 108 Hemoglobin A1c % 5.4 Calcium 9.3 Total Bilirubin 0.2 AST 44 H ALT 56 H Alkaline Phosphatase 75 Total Protein 7.9 Albumin 4.7 Triglycerides 140 Cholesterol 200 H LDL Cholesterol, Calc 134 H HDL Cholesterol 38 L Medications Medications Current Medications Acetaminophen (Acetaminophen 325 Mg Tablet) 650 mg PO Q6H PRN PRN Reason: Headache/Pain, Scale 1-10 Al Hydroxide/Mg Hydroxide (Magnesium Hydrox/Alum Hydrox 30 Ml Oral.Susp) 30 ml PO Q6H PRN PRN Reason: Heartburn/Nausea Amphetamine/Dextroamphetamine (Dextroamphetamine/Amphetamine Xr 10 Mg Cap.Er.24h) 30 mg PO DAILY@1200 [facility] Last Admin: 05/03/25 11:38 Dose: 30 mg Amphetamine/Dextroamphetamine (Amphetamine Mixed Salts 10 Mg Tablet) 30 mg PO DAILY [facility] Last Admin: 05/04/25 09:07 Dose: 30 mg Diazepam (Diazepam 5 Mg Tablet) 10 mg PO TID PRN PRN Reason: severe anxiety Last Admin: 05/03/25 11:38 Dose: 10 mg Duloxetine HCl (Duloxetine Hcl 20 Mg Capsule.Dr) 40 mg PO BIDWM [facility] Last Admin: 05/04/25 09:06 Dose: 40 mg Hydroxyzine HCl (Hydroxyzine Hcl 25 Mg Tablet) 25 mg PO Q6H PRN PRN Reason: mild anxiety Magnesium Hydroxide (Milk Of Magnesia 30 Ml Oral.Susp) 30 ml PO DAILY PRN PRN Reason: Constipation Nicotine Polacrilex (Nicotine Polacrilex 2 Mg Gum) 4 mg BUCCAL Q2H PRN PRN Reason: Nicotine Cravings Non-Formulary Medication (Norethindrone Acetate) 5 mg PO DAILY [facility] Olanzapine (Olanzapine Odt 10 Mg Tab.Rapdis) 10 mg TRANSLINGU BID [facility] Last Admin: 05/04/25 09:06 Dose: 10 mg Propranolol HCl (Propranolol Hcl 10 Mg Tablet) 30 mg PO TID [facility]; Protocol Last Admin: 05/04/25 09:06 Dose: 30 mg Trazodone HCl (Trazodone Hcl 50 Mg Tablet) 50 mg PO BEDTIME MRX1 PRN PRN Reason: Insomnia Last Admin: 05/03/25 20:55 Dose: 50 mg Allergies Allergies Allergy/AdvReac Type Severity Reaction Status Date / Time gluten AdvReac Gastrointestinal Verified 05/01/25 20:48 Upset lithium AdvReac Unknown Verified 05/01/25 20:48 wheat AdvReac Gastrointestinal Verified 05/01/25 20:48 Upset Assessment & Plan Assessment & Plan (1) PTSD (post-traumatic stress disorder): Status: Acute Code(s): F43.10 - Post-traumatic stress disorder, unspecified (2) Bipolar disorder with psychotic features: Status: Acute Code(s): F31.9 - Bipolar disorder, unspecified Plan 49 yo female, to ER with family, post discussion with therapist, planetarium sky show technician and provider. Recent M5 admission with medication adjustments that out pt team did not continue post discharge, specifically olanzapine and propranolol. Pt as a result had a decline and return of symptoms. It is unclear why this occurred as pt and mother were present with OP prescriber who said these meds would be continued. Per pharmacy, both were never prescribed by the out pt team. As a result of the error, pt declined, isolating in her apartment, becoming more anxious, less functional than she expects of herself and concerned about her symptoms. She presents voluntarily stating, I felt well on the medicines, I would like to get back on them. Regime was re-established on admission. Hospital course: 05/04 continue treatment plan Plan: Admit, CV, 15 minute checks Re-establish regime Encourage milieu engagement Collateral contact Diagnostics as needed Family meeting next week Aftercare provider search Discharge planning Patient educated on: diagnosis Informed Consent: understands Reason for continued inpatient stay Substantial Risk for: stable for discharge Time Spent With Patient Time: Total time managing care of this patient today ____ minutes.
[2025-05-04] MEDS: Dextroamphetamine/Amphetamine XR 10 MG CAP.ER.24H 30 MG PO (12:15)
[2025-05-04 15:18] VITALS: BP 151/80; PULSE 103
[2025-05-04 20:00] VITALS: BP 123/89; PULSE 90; TEMP 36.9
[2025-05-04 20:12] VITALS: BP 123/89; PULSE 98
[2025-05-05 07:55] VITALS: BP 117/83; PULSE 93; RESP 18; TEMP 36.4; O2SAT 97
[2025-05-05] MEDS: Amphetamine Mixed Salts 10 MG TABLET 30 MG PO (09:29)
[2025-05-05] MEDS: OLANZapine ODT 10 MG TAB.RAPDIS TRANSLINGU ×2 (09:31→21:14)
[2025-05-05] MEDS: Dextroamphetamine/Amphetamine XR 10 MG CAP.ER.24H 30 MG PO (11:26)
[2025-05-05 14:59] VITALS: BP 139/88; PULSE 104
--- NOTE | 2025-05-05 17:11 | P.PNPSI_ITS ---
Subjective Subjective Date of Service: 05/05/25 Reason For Visit: increased psychiatric Interim History: Met with patient; discussed with team Patient reports he is doing fine, no complaints and no requests Mental Status Exam Mental Status Exam Narrative: Pt is alert and oriented; behavior is isolative; a little guarded but overall calm and cooperative; patient is not in distress; dressed in casual attire with unkempt hair but adequate hygiene; mood is described as better and affect congruent; eye contact appropriate; Speech is normal rate, volume and prosody and not pressured; psychomotor retardation present; thought process is organized and goal directed; Thought content is on tx, upcoming court; otherwise pertinent to relevant topics and without any delusional content, paranoid ideations or grandiosity; denies any SI/HI. Denies AVH and there is no evidence of perceptual disturbance. Patients insight and judgment appear intact. Diagnostics Vital Signs (24Hr): Vital Signs - 24 hr 05/04/25 20:00 05/04/25 20:12 05/05/25 07:55 Temperature 98.5 F 97.5 F Pulse Rate 90 98 93 Respiratory Rate 18 Blood Pressure 123/89 123/89 117/83 Pulse Oximetry 97 Oxygen Delivery Method Room Air 05/05/25 14:59 Temperature Pulse Rate 104 H Respiratory Rate Blood Pressure 139/88 Pulse Oximetry Oxygen Delivery Method BMI result Body Mass Index 32.9 Labs 05/01/25 21:01 05/03/25 08:06 Medications Medications Current Medications Acetaminophen (Acetaminophen 325 Mg Tablet) 650 mg PO Q6H PRN PRN Reason: Headache/Pain, Scale 1-10 Al Hydroxide/Mg Hydroxide (Magnesium Hydrox/Alum Hydrox 30 Ml Oral.Susp) 30 ml PO Q6H PRN PRN Reason: Heartburn/Nausea Amphetamine/Dextroamphetamine (Dextroamphetamine/Amphetamine Xr 10 Mg Cap.Er.24h) 30 mg PO DAILY@1200 [facility] Last Admin: 05/05/25 11:26 Dose: 30 mg Amphetamine/Dextroamphetamine (Amphetamine Mixed Salts 10 Mg Tablet) 30 mg PO DAILY [facility] Last Admin: 05/05/25 09:29 Dose: 30 mg Diazepam (Diazepam 5 Mg Tablet) 10 mg PO TID PRN PRN Reason: severe anxiety Last Admin: 05/05/25 16:31 Dose: 10 mg Duloxetine HCl (Duloxetine Hcl 20 Mg Capsule.Dr) 40 mg PO BIDWM [facility] Last Admin: 05/05/25 09:30 Dose: 40 mg Hydroxyzine HCl (Hydroxyzine Hcl 25 Mg Tablet) 25 mg PO Q6H PRN PRN Reason: mild anxiety Magnesium Hydroxide (Milk Of Magnesia 30 Ml Oral.Susp) 30 ml PO DAILY PRN PRN Reason: Constipation Nicotine Polacrilex (Nicotine Polacrilex 2 Mg Gum) 4 mg BUCCAL Q2H PRN PRN Reason: Nicotine Cravings Non-Formulary Medication (Norethindrone Acetate) 5 mg PO DAILY [facility]LIE Olanzapine (Olanzapine Odt 10 Mg Tab.Rapdis) 10 mg TRANSLINGU BID [facility]LIE Last Admin: 05/05/25 09:31 Dose: 10 mg Propranolol HCl (Propranolol Hcl 10 Mg Tablet) 30 mg PO TID [facility]; Protocol Last Admin: 05/05/25 14:59 Dose: 30 mg Trazodone HCl (Trazodone Hcl 50 Mg Tablet) 50 mg PO BEDTIME MRX1 PRN PRN Reason: Insomnia Last Admin: 05/04/25 20:13 Dose: 50 mg Allergies Allergies Allergy/AdvReac Type Severity Reaction Status Date / Time gluten AdvReac Gastrointestinal Verified 05/01/25 20:48 Upset lithium AdvReac Unknown Verified 05/01/25 20:48 wheat AdvReac Gastrointestinal Verified 05/01/25 20:48 Upset Assessment & Plan Assessment & Plan (1) PTSD (post-traumatic stress disorder): Status: Acute Code(s): F43.10 - Post-traumatic stress disorder, unspecified (2) Bipolar disorder with psychotic features: Status: Acute Code(s): F31.9 - Bipolar disorder, unspecified Plan 49 yo female, to ER with family, post discussion with therapist, electronics engineering technologist and provider. Recent M5 admission with medication adjustments that out pt team did not continue post discharge, specifically olanzapine and propranolol. Pt as a result had a decline and return of symptoms. It is unclear why this occurred as pt and mother were present with OP prescriber who said these meds would be continued. Per pharmacy, both were never prescribed by the out pt team. As a result of the error, pt declined, isolating in her apartment, becoming more anxious, less functional than she expects of herself and concerned about her symptoms. She presents voluntarily stating, I felt well on the medicines, I would like to get back on them. Regime was re-established on admission. Hospital course: 05/04 continue treatment plan 05/05 no change in presentation; patient reports she is doing fine; continue current treatment plan Plan: Admit, CV, 15 minute checks Re-establish regime Encourage milieu engagement Collateral contact Diagnostics as needed Family meeting next week Aftercare provider search Discharge planning Patient educated on: diagnosis Informed Consent: understands Reason for continued inpatient stay Substantial Risk for: stable for discharge Time Spent With Patient Time: Total time managing care of this patient today ____ minutes.
[2025-05-05 20:00] VITALS: BP 158/90; PULSE 87; TEMP 36.6
[2025-05-05 21:14] VITALS: BP 128/68; PULSE 76
--- NOTE | 2025-05-05 21:45 | PC.NURSE ---
At approximately 2105, this patient approached the medication room door, and this bond writer attempted to assess this patient. The patient became upset, stating I was told not to make a line in front of this door, and that I'd get my meds. It's almost 10 o'clock! I did the right thing, I got away from the door, and now I'm just not going to take my meds. Maybe [another staff member] can give me my meds. I just want my meds and to go to bed. The fellow nurse who was present administered this patient's medication, as this patient refused to interact with this bond writer.
[2025-05-06 07:56] VITALS: BP 141/78; PULSE 72; TEMP 36.2; O2SAT 96
[2025-05-06 08:58] VITALS: BP 147/78; PULSE 72
[2025-05-06] MEDS: OLANZapine ODT 10 MG TAB.RAPDIS TRANSLINGU ×2 (08:59→19:58)
[2025-05-06] MEDS: Amphetamine Mixed Salts 10 MG TABLET 30 MG PO (08:59)
[2025-05-06] MEDS: Dextroamphetamine/Amphetamine XR 10 MG CAP.ER.24H 30 MG PO (11:39)
--- NOTE | 2025-05-06 13:57 | P.PNPSI_ITS ---
Subjective Subjective Date of Service: 05/06/25 Reason For Visit: increased psychiatric Interim History: Met with patient; discussed with team Patient reports feeling almost back to her regular self.. Saying she is improving and plans to go to groups today. Mental Status Exam Mental Status Exam Narrative: Pt is alert and oriented; behavior mostly isolative but a little more in the milieu; calm and cooperative; patient is not in distress; dressed in casual attire with unkempt hair but adequate hygiene; mood is described as better and affect congruent, brighter; eye contact appropriate; Speech is normal rate, volume and prosody and not pressured; some psychomotor retardation present; thought process is organized and goal directed; Thought content is on tx, upcoming court; otherwise pertinent to relevant topics and without any delusional content, paranoid ideations or grandiosity; denies any SI/HI. Denies AVH and there is no evidence of perceptual disturbance. Patients insight and judgment appear intact. Diagnostics Vital Signs (24Hr): Vital Signs - 24 hr 05/05/25 14:59 05/05/25 20:00 05/05/25 21:14 Temperature 97.9 F Pulse Rate 104 H 87 76 Blood Pressure 139/88 158/90 H 128/68 Pulse Oximetry Oxygen Delivery Method 05/06/25 07:56 05/06/25 08:58 Temperature 97.1 F Pulse Rate 72 72 Blood Pressure 141/78 H 147/78 H Pulse Oximetry 96 Oxygen Delivery Method Room Air BMI result Body Mass Index 32.9 Labs 05/01/25 21:01 05/03/25 08:06 Medications Medications Current Medications Acetaminophen (Acetaminophen 325 Mg Tablet) 650 mg PO Q6H PRN PRN Reason: Headache/Pain, Scale 1-10 Al Hydroxide/Mg Hydroxide (Magnesium Hydrox/Alum Hydrox 30 Ml Oral.Susp) 30 ml PO Q6H PRN PRN Reason: Heartburn/Nausea Amphetamine/Dextroamphetamine (Dextroamphetamine/Amphetamine Xr 10 Mg Cap.Er.24h) 30 mg PO DAILY@1200 [facility] Last Admin: 05/06/25 11:39 Dose: 30 mg Amphetamine/Dextroamphetamine (Amphetamine Mixed Salts 10 Mg Tablet) 30 mg PO DAILY [facility] Last Admin: 05/06/25 08:59 Dose: 30 mg Diazepam (Diazepam 5 Mg Tablet) 10 mg PO TID PRN PRN Reason: severe anxiety Last Admin: 05/06/25 09:02 Dose: 10 mg Duloxetine HCl (Duloxetine Hcl 20 Mg Capsule.Dr) 40 mg PO BIDWM [facility] Last Admin: 05/06/25 08:59 Dose: 40 mg Hydroxyzine HCl (Hydroxyzine Hcl 25 Mg Tablet) 25 mg PO Q6H PRN PRN Reason: mild anxiety Magnesium Hydroxide (Milk Of Magnesia 30 Ml Oral.Susp) 30 ml PO DAILY PRN PRN Reason: Constipation Nicotine Polacrilex (Nicotine Polacrilex 2 Mg Gum) 4 mg BUCCAL Q2H PRN PRN Reason: Nicotine Cravings Olanzapine (Olanzapine Odt 10 Mg Tab.Rapdis) 10 mg TRANSLINGU BID [facility] Last Admin: 05/06/25 08:59 Dose: 10 mg Propranolol HCl (Propranolol Hcl 10 Mg Tablet) 30 mg PO TID [facility]; Protocol Last Admin: 05/06/25 08:58 Dose: 30 mg Trazodone HCl (Trazodone Hcl 50 Mg Tablet) 50 mg PO BEDTIME MRX1 PRN PRN Reason: Insomnia Last Admin: 05/04/25 20:13 Dose: 50 mg Allergies Allergies Allergy/AdvReac Type Severity Reaction Status Date / Time gluten AdvReac Gastrointestinal Verified 05/01/25 20:48 Upset lithium AdvReac Unknown Verified 05/01/25 20:48 wheat AdvReac Gastrointestinal Verified 05/01/25 20:48 Upset Assessment & Plan Assessment & Plan (1) PTSD (post-traumatic stress disorder): Status: Acute Code(s): F43.10 - Post-traumatic stress disorder, unspecified (2) Bipolar disorder with psychotic features: Status: Acute Code(s): F31.9 - Bipolar disorder, unspecified Plan 49 yo female, to ER with family, post discussion with therapist, highway administrative engineer and provider. Recent M5 admission with medication adjustments that out pt team did not continue post discharge, specifically olanzapine and propranolol. Pt as a result had a decline and return of symptoms. It is unclear why this occurred as pt and mother were present with OP prescriber who said these meds would be continued. Per pharmacy, both were never prescribed by the out pt team. As a result of the error, pt declined, isolating in her apartment, becoming more anxious, less functional than she expects of herself and concerned about her symptoms. She presents voluntarily stating, I felt well on the medicines, I would like to get back on them. Regime was re-established on admission. Hospital course: 05/04 continue treatment plan 05/05 no change in presentation; patient reports she is doing fine; continue current treatment plan 05/06 continue treatment plan Plan: Admit, CV, 15 minute checks Re-establish regime Encourage milieu engagement Collateral contact Diagnostics as needed Family meeting next week Aftercare provider search Discharge planning Patient educated on: diagnosis and therapeutic strategies Informed Consent: understands Reason for continued inpatient stay Substantial Risk for: stable for discharge Time Spent With Patient Time: Total time managing care of this patient today ____ minutes.
[2025-05-06 15:44] VITALS: BP 118/82; PULSE 110
[2025-05-06 17:19] VITALS: TEMP 2.7; TEMP 36.9
[2025-05-06 19:56] VITALS: BP 130/79; PULSE 83
[2025-05-06 20:00] VITALS: BP 130/79; PULSE 83; RESP 18; TEMP 36.7; O2SAT 97
[2025-05-07 08:00] VITALS: BP 143/81; PULSE 80; RESP 15; TEMP 36.6; O2SAT 97
[2025-05-07] MEDS: Amphetamine Mixed Salts 10 MG TABLET 30 MG PO (08:45)
[2025-05-07] MEDS: OLANZapine ODT 10 MG TAB.RAPDIS TRANSLINGU ×2 (08:45→20:07)
[2025-05-07] MEDS: Dextroamphetamine/Amphetamine XR 10 MG CAP.ER.24H 30 MG PO (11:05)
--- NOTE | 2025-05-07 11:40 | P.PNPSI_ITS ---
Subjective Subjective Date of Service: 05/07/25 Reason For Visit: increased psychiatric Subjective Notes: Conditional Voluntary Healthcare Proxy: No Guardianship: No Medical Problems Affecting Mental Status: No Interim History: Continues with steady improvement. Preparing for visitation with her children prior to court date. I have not seen them in over a year. Meeting with parents, team, fine jewelry sales associate tentative this week. Medication Compliance: Yes Side effects from medications: Yes (mild perioral TD sx) Attending Groups: Intermittent Review of Systems Acute medical concerns: No Medical Review of Systems: unchanged Review of Systems Review of Systems Some URI sx upon awakening. Reports these resolved as the day progressed. Mental Status Exam Mental Status Exam Patient Appearance: Appropriate Patient Orientation: Person, Place, Time and Situation Level of Consciousness: Alert Patient Behavior: Talkative, Cooperative and Good Eye Contact Mood Description: Apprehensive Affect Description: Apprehensive Patient Cognition Impaired: No Ability to Follow Directions: Good Speech Pattern: Spontaneous Speech Memory Description: Intact Hallucinations: None Delusions: Not Present Thought Process: Distracted Thought Content: positive for Intact Judgement: Good Diagnostics Vital Signs (24Hr): Vital Signs - 24 hr 05/06/25 15:44 05/06/25 17:19 05/06/25 19:56 Temperature 36.9 F L Pulse Rate 110 H 83 Respiratory Rate Blood Pressure 118/82 130/79 Pulse Oximetry Oxygen Delivery Method 05/06/25 20:00 05/07/25 08:00 Temperature 98.0 F 97.9 F Pulse Rate 83 80 Respiratory Rate 18 15 Blood Pressure 130/79 143/81 H Pulse Oximetry 97 97 Oxygen Delivery Method Room Air Room Air BMI result Body Mass Index 32.9 Labs 05/01/25 21:01 05/03/25 08:06 Medications Medications Current Medications Acetaminophen (Acetaminophen 325 Mg Tablet) 650 mg PO Q6H PRN PRN Reason: Headache/Pain, Scale 1-10 Al Hydroxide/Mg Hydroxide (Magnesium Hydrox/Alum Hydrox 30 Ml Oral.Susp) 30 ml PO Q6H PRN PRN Reason: Heartburn/Nausea Amphetamine/Dextroamphetamine (Dextroamphetamine/Amphetamine Xr 10 Mg Cap.Er.24h) 30 mg PO DAILY@1200 [facility] Last Admin: 05/07/25 11:05 Dose: 30 mg Amphetamine/Dextroamphetamine (Amphetamine Mixed Salts 10 Mg Tablet) 30 mg PO DAILY [facility] Last Admin: 05/07/25 08:45 Dose: 30 mg Diazepam (Diazepam 5 Mg Tablet) 10 mg PO TID PRN PRN Reason: severe anxiety Last Admin: 05/07/25 04:29 Dose: 10 mg Duloxetine HCl (Duloxetine Hcl 20 Mg Capsule.Dr) 40 mg PO BIDWM [facility] Last Admin: 05/07/25 08:45 Dose: 40 mg Hydroxyzine HCl (Hydroxyzine Hcl 25 Mg Tablet) 25 mg PO Q6H PRN PRN Reason: mild anxiety Magnesium Hydroxide (Milk Of Magnesia 30 Ml Oral.Susp) 30 ml PO DAILY PRN PRN Reason: Constipation Nicotine Polacrilex (Nicotine Polacrilex 2 Mg Gum) 4 mg BUCCAL Q2H PRN PRN Reason: Nicotine Cravings Olanzapine (Olanzapine Odt 10 Mg Tab.Rapdis) 10 mg TRANSLINGU BID [facility] Last Admin: 05/07/25 08:45 Dose: 10 mg Propranolol HCl (Propranolol Hcl 10 Mg Tablet) 30 mg PO TID [facility]; Protocol Last Admin: 05/07/25 08:46 Dose: 30 mg Trazodone HCl (Trazodone Hcl 50 Mg Tablet) 50 mg PO BEDTIME MRX1 PRN PRN Reason: Insomnia Last Admin: 05/06/25 20:04 Dose: 50 mg Allergies Allergies Allergy/AdvReac Type Severity Reaction Status Date / Time gluten AdvReac Gastrointestinal Verified 05/01/25 20:48 Upset lithium AdvReac Unknown Verified 05/01/25 20:48 wheat AdvReac Gastrointestinal Verified 05/01/25 20:48 Upset Assessment & Plan Assessment & Plan (1) PTSD (post-traumatic stress disorder): Status: Acute Code(s): F43.10 - Post-traumatic stress disorder, unspecified (2) Bipolar disorder with psychotic features: Status: Acute Code(s): F31.9 - Bipolar disorder, unspecified Plan 49 yo female, to ER with family, post discussion with therapist, fine jewelry sales associate and provider. Recent M5 admission with medication adjustments that out pt team did not continue post discharge, specifically olanzapine and propranolol. Pt as a result had a decline and return of symptoms. It is unclear why this occurred as pt and mother were present with OP prescriber who said these meds would be continued. Per pharmacy, both were never prescribed by the out pt team. As a result of the error, pt declined, isolating in her apartment, becoming more anxious, less functional than she expects of herself and concerned about her symptoms. She presents voluntarily stating, I felt well on the medicines, I would like to get back on them. Regime was re-established on admission. Hospital course: 05/04 continue treatment plan 05/05 no change in presentation; patient reports she is doing fine; continue current treatment plan 05/06 continue treatment plan 05/07 continue tx Plan: Admit, CV, 15 minute checks Re-establish regime Encourage milieu engagement Collateral contact Diagnostics as needed Family meeting next week Aftercare provider search Discharge planning Reason for continued inpatient stay Substantial Risk for: rapid decompensation Time Spent With Patient Time: Total time managing care of this patient today ____ minutes.
[2025-05-07 14:26] VITALS: BP 130/84; PULSE 78
[2025-05-07 20:00] VITALS: BP 130/89; PULSE 99; RESP 15; TEMP 36.4; O2SAT 96
[2025-05-08 08:00] VITALS: BP 148/96; PULSE 97; RESP 18; TEMP 36.4; O2SAT 98
[2025-05-08] MEDS: OLANZapine ODT 10 MG TAB.RAPDIS TRANSLINGU ×2 (08:47→19:57)
[2025-05-08] MEDS: Amphetamine Mixed Salts 10 MG TABLET 30 MG PO (08:47)
--- NOTE | 2025-05-08 10:06 | P.PNPSI_ITS ---
Subjective Subjective Date of Service: 05/08/25 Reason For Visit: increased psychiatric Subjective Notes: Conditional Voluntary Healthcare Proxy: No Guardianship: No Medical Problems Affecting Mental Status: No Interim History: Pt reports feeling well. Denies SI,HI,AH,VH. Sleeping and eating well. Preparing for her family meeting with children's nurse chemical dependency on 05/10. Well engaged in discussion today. We discussed what questions she believes her children will ask her when they see her after this long absence. Medication Compliance: Yes Side effects from medications: No Attending Groups: Intermittent Review of Systems Acute medical concerns: No Medical Review of Systems: unchanged Review of Systems Review of Systems I feel good. Mental Status Exam Mental Status Exam Patient Appearance: Appropriate Patient Orientation: Person, Place, Time and Situation Level of Consciousness: Alert Patient Behavior: Talkative, Cooperative and Good Eye Contact Mood Description: Apprehensive Affect Description: Apprehensive Patient Cognition Impaired: No Ability to Follow Directions: Good Speech Pattern: Spontaneous Speech Memory Description: Intact Hallucinations: None Delusions: Not Present Thought Process: Distracted Thought Content: positive for Intact Judgement: Good Diagnostics Vital Signs (24Hr): Vital Signs - 24 hr 05/07/25 14:26 05/07/25 20:00 05/08/25 08:00 Temperature 97.6 F 97.5 F Pulse Rate 78 99 97 Respiratory Rate 15 18 Blood Pressure 130/84 130/89 148/96 H Pulse Oximetry 96 98 Oxygen Delivery Method Room Air Room Air BMI result Body Mass Index 32.9 Labs 05/01/25 21:01 05/03/25 08:06 Medications Medications Current Medications Acetaminophen (Acetaminophen 325 Mg Tablet) 650 mg PO Q6H PRN PRN Reason: Headache/Pain, Scale 1-10 Al Hydroxide/Mg Hydroxide (Magnesium Hydrox/Alum Hydrox 30 Ml Oral.Susp) 30 ml PO Q6H PRN PRN Reason: Heartburn/Nausea Amphetamine/Dextroamphetamine (Dextroamphetamine/Amphetamine Xr 10 Mg Cap.Er.24h) 30 mg PO DAILY@1200 [facility] Last Admin: 05/07/25 11:05 Dose: 30 mg Amphetamine/Dextroamphetamine (Amphetamine Mixed Salts 10 Mg Tablet) 30 mg PO DAILY [facility] Last Admin: 05/08/25 08:47 Dose: 30 mg Diazepam (Diazepam 5 Mg Tablet) 10 mg PO TID PRN PRN Reason: severe anxiety Last Admin: 05/07/25 19:16 Dose: 10 mg Duloxetine HCl (Duloxetine Hcl 20 Mg Capsule.Dr) 40 mg PO BIDWM [facility] Last Admin: 05/08/25 08:47 Dose: 40 mg Hydroxyzine HCl (Hydroxyzine Hcl 25 Mg Tablet) 25 mg PO Q6H PRN PRN Reason: mild anxiety Magnesium Hydroxide (Milk Of Magnesia 30 Ml Oral.Susp) 30 ml PO DAILY PRN PRN Reason: Constipation Nicotine Polacrilex (Nicotine Polacrilex 2 Mg Gum) 4 mg BUCCAL Q2H PRN PRN Reason: Nicotine Cravings Olanzapine (Olanzapine Odt 10 Mg Tab.Rapdis) 10 mg TRANSLINGU BID [facility] Last Admin: 05/08/25 08:47 Dose: 10 mg Propranolol HCl (Propranolol Hcl 10 Mg Tablet) 30 mg PO TID [facility]; Protocol Last Admin: 05/08/25 08:47 Dose: 30 mg Trazodone HCl (Trazodone Hcl 50 Mg Tablet) 50 mg PO BEDTIME MRX1 PRN PRN Reason: Insomnia Last Admin: 05/07/25 20:08 Dose: 50 mg Allergies Allergies Allergy/AdvReac Type Severity Reaction Status Date / Time gluten AdvReac Gastrointestinal Verified 05/01/25 20:48 Upset lithium AdvReac Unknown Verified 05/01/25 20:48 wheat AdvReac Gastrointestinal Verified 05/01/25 20:48 Upset Assessment & Plan Assessment & Plan (1) PTSD (post-traumatic stress disorder): Status: Acute Code(s): F43.10 - Post-traumatic stress disorder, unspecified (2) Bipolar disorder with psychotic features: Status: Acute Code(s): F31.9 - Bipolar disorder, unspecified Plan 49 yo female, to ER with family, post discussion with therapist, nurse chemical dependency and provider. Recent M5 admission with medication adjustments that out pt team did not continue post discharge, specifically olanzapine and propranolol. Pt as a result had a decline and return of symptoms. It is unclear why this occurred as pt and mother were present with OP prescriber who said these meds would be continued. Per pharmacy, both were never prescribed by the out pt team. As a result of the error, pt declined, isolating in her apartment, becoming more anxious, less functional than she expects of herself and concerned about her symptoms. She presents voluntarily stating, I felt well on the medicines, I would like to get back on them. Regime was re-established on admission. Hospital course: 05/04 continue treatment plan 05/05 no change in presentation; patient reports she is doing fine; continue current treatment plan 05/06 continue treatment plan 05/08 meeting with parents, children's guardian at [facility] on 05/10. continue tx Plan: Admit, CV, 15 minute checks Re-establish regime Encourage milieu engagement Collateral contact Diagnostics as needed Family meeting next week Aftercare provider search Discharge planning Reason for continued inpatient stay Substantial Risk for: rapid decompensation Time Spent With Patient Time: Total time managing care of this patient today ____ minutes.
[2025-05-08] MEDS: Dextroamphetamine/Amphetamine XR 10 MG CAP.ER.24H 30 MG PO (11:04)
[2025-05-08 14:27] VITALS: BP 131/78; PULSE 81
[2025-05-08 19:56] VITALS: BP 131/73; PULSE 106
[2025-05-08 19:59] VITALS: BP 131/73; PULSE 106; RESP 16; TEMP 36.8; O2SAT 98
[2025-05-09 08:36] VITALS: BP 142/74; PULSE 87
[2025-05-09] MEDS: OLANZapine ODT 10 MG TAB.RAPDIS TRANSLINGU ×2 (08:37→21:04)
[2025-05-09] MEDS: Amphetamine Mixed Salts 10 MG TABLET 30 MG PO (08:37)
--- NOTE | 2025-05-09 10:38 | HO.PSYCHPN ---
Subjective Subjective Date of Service: 05/09/25 Reason For Visit: increased psychiatric Subjective Notes: Conditional Voluntary Healthcare Proxy: No Guardianship: No Medical Problems Affecting Mental Status: No Interim History: Angélica with some anxiety and apprehension today for upcoming meeting with children's legal instruments examiner and family on 05/10 and especially visitation with her children next week with guardian observation. Feeling less anxious than usual- I think I may be more excited than anxious . It is feeling like things are working out for me and my children. Excitement and yamilex . Does report some sx of URI, hx of mono and does not think this is it but possible flu or URI. Activities planned with her children which she reviewed and talking about how to continue to reassure them that she is working on the family being reconciled again. Medication Compliance: Yes Side effects from medications: No Attending Groups: Intermittent Review of Systems Acute medical concerns: No Medical Review of Systems: unchanged Review of Systems Review of Systems URI sx Mental Status Exam Mental Status Exam Patient Appearance: Appropriate Patient Orientation: Person, Place, Time and Situation Level of Consciousness: Alert Patient Behavior: Talkative, Cooperative and Good Eye Contact Mood Description: Apprehensive Affect Description: Apprehensive Patient Cognition Impaired: No Ability to Follow Directions: Good Speech Pattern: Spontaneous Speech Memory Description: Intact Hallucinations: None Delusions: Not Present Thought Process: Distracted Thought Content: positive for Intact Judgement: Good Diagnostics Vital Signs (24Hr): Vital Signs - 24 hr 05/08/25 14:27 05/08/25 19:56 05/08/25 19:59 Temperature 98.2 F Pulse Rate 81 106 H 106 H Respiratory Rate 16 Blood Pressure 131/78 131/73 131/73 Pulse Oximetry 98 Oxygen Delivery Method Room Air 05/09/25 08:36 Temperature Pulse Rate 87 Respiratory Rate Blood Pressure 142/74 H Pulse Oximetry Oxygen Delivery Method BMI result Body Mass Index 32.9 Labs 05/01/25 21:01 05/03/25 08:06 Medications Medications Current Medications Acetaminophen (Acetaminophen 325 Mg Tablet) 650 mg PO Q6H PRN PRN Reason: Headache/Pain, Scale 1-10 Al Hydroxide/Mg Hydroxide (Magnesium Hydrox/Alum Hydrox 30 Ml Oral.Susp) 30 ml PO Q6H PRN PRN Reason: Heartburn/Nausea Amphetamine/Dextroamphetamine (Dextroamphetamine/Amphetamine Xr 10 Mg Cap.Er.24h) 30 mg PO DAILY@1200 [facility] Last Admin: 05/08/25 11:04 Dose: 30 mg Amphetamine/Dextroamphetamine (Amphetamine Mixed Salts 10 Mg Tablet) 30 mg PO DAILY [facility] Last Admin: 05/09/25 08:37 Dose: 30 mg Diazepam (Diazepam 5 Mg Tablet) 10 mg PO TID PRN PRN Reason: severe anxiety Last Admin: 05/08/25 16:46 Dose: 10 mg Duloxetine HCl (Duloxetine Hcl 20 Mg Capsule.Dr) 40 mg PO BIDWM [facility] Last Admin: 05/09/25 08:35 Dose: 40 mg Hydroxyzine HCl (Hydroxyzine Hcl 25 Mg Tablet) 25 mg PO Q6H PRN PRN Reason: mild anxiety Magnesium Hydroxide (Milk Of Magnesia 30 Ml Oral.Susp) 30 ml PO DAILY PRN PRN Reason: Constipation Nicotine Polacrilex (Nicotine Polacrilex 2 Mg Gum) 4 mg BUCCAL Q2H PRN PRN Reason: Nicotine Cravings Olanzapine (Olanzapine Odt 10 Mg Tab.Rapdis) 10 mg TRANSLINGU BID [facility] Last Admin: 05/09/25 08:37 Dose: 10 mg Propranolol HCl (Propranolol Hcl 10 Mg Tablet) 30 mg PO TID [facility]; Protocol Last Admin: 05/09/25 08:36 Dose: 30 mg Trazodone HCl (Trazodone Hcl 50 Mg Tablet) 50 mg PO BEDTIME MRX1 PRN PRN Reason: Insomnia Last Admin: 05/08/25 19:57 Dose: 50 mg Allergies Allergies Allergy/AdvReac Type Severity Reaction Status Date / Time gluten AdvReac Gastrointestinal Verified 05/01/25 20:48 Upset lithium AdvReac Unknown Verified 05/01/25 20:48 wheat AdvReac Gastrointestinal Verified 05/01/25 20:48 Upset Assessment & Plan Assessment & Plan (1) PTSD (post-traumatic stress disorder): Status: Acute Code(s): F43.10 - Post-traumatic stress disorder, unspecified (2) Bipolar disorder with psychotic features: Status: Acute Code(s): F31.9 - Bipolar disorder, unspecified Plan 49 yo female, to ER with family, post discussion with therapist, legal instruments examiner and provider. Recent M5 admission with medication adjustments that out pt team did not continue post discharge, specifically olanzapine and propranolol. Pt as a result had a decline and return of symptoms. It is unclear why this occurred as pt and mother were present with OP prescriber who said these meds would be continued. Per pharmacy, both were never prescribed by the out pt team. As a result of the error, pt declined, isolating in her apartment, becoming more anxious, less functional than she expects of herself and concerned about her symptoms. She presents voluntarily stating, I felt well on the medicines, I would like to get back on them. Regime was re-established on admission. Hospital course: 05/04 continue treatment plan 05/05 no change in presentation; patient reports she is doing fine; continue current treatment plan 05/06 continue treatment plan 05/08 meeting with parents, children's guardian at [facility] on 05/10. continue tx 05/09 continue tx Plan: Admit, CV, 15 minute checks Re-establish regime Encourage milieu engagement Collateral contact Diagnostics as needed Family meeting next week Aftercare provider search Discharge planning Reason for continued inpatient stay Substantial Risk for: rapid decompensation Time Spent With Patient Time: Total time managing care of this patient today ____ minutes.
[2025-05-09] MEDS: Dextroamphetamine/Amphetamine XR 10 MG CAP.ER.24H 30 MG PO (11:01)
[2025-05-09 14:34] VITALS: BP 148/84; PULSE 68
[2025-05-09 20:18] VITALS: BP 146/72; PULSE 103; RESP 16; TEMP 36.6; O2SAT 96
[2025-05-10 08:00] VITALS: BP 176/86; PULSE 100; RESP 16; TEMP 36.6; O2SAT 99
[2025-05-10 09:00] VITALS: BP 176/96; PULSE 100
[2025-05-10] MEDS: Amphetamine Mixed Salts 10 MG TABLET 30 MG PO (09:01)
[2025-05-10] MEDS: OLANZapine ODT 10 MG TAB.RAPDIS TRANSLINGU ×2 (09:01→21:42)
--- NOTE | 2025-05-10 10:33 | PM.PSYDC ---
DS: Providers Provider Date of admission: 05/02/25 11:52 Primary care physician: Unknown Physician DS: Diagnosis Discharge Diagnosis (1) PTSD (post-traumatic stress disorder): Status: Acute (2) Bipolar disorder with psychotic features: Status: Acute DS: Medications Discharge Medications Home Medications: Home Medications ?Medication ?Instructions ?Recorded ?Confirmed norethindrone acetate 5 mg tablet 5 mg PO DAILY 05/01/25 05/01/25 propranolol 20 mg tablet 30 mg PO TID 05/01/25 05/02/25 olanzapine 10 mg tablet (Zyprexa) 10 mg PO BID 05/02/25 05/02/25 Previous Rx's ?Medication ?Instructions ?Recorded dextroamphetamine-amphetamine 30 30 mg PO QAM #30 tabs 03/26/25 mg tablet (Adderall) dextroamphetamine-amphetamine ER 30 mg PO QNOON #30 caps 03/26/25 30 mg 24hr capsule,extend release (Adderall XR) diazepam 10 mg tablet 10 mg PO TID PRN severe anxiety 03/26/25 #90 tabs duloxetine 20 mg capsule,delayed 40 mg (2 x 20 mg) PO BIDWM #60 caps 03/26/25 release trazodone 50 mg tablet 50 mg PO BEDTIME MRX1 PRN Insomnia 03/26/25 #60 tabs Data Data Completed and Pending Completed studies during hospitalization [Text1]: 05/10/25 05/10/25 09:43 09:44 Hold Purple Top SEE NOTE Monoscreen Negative DS: Summary Time Spent with Patient Time attestation: Total time managing care of this patient today ____ minutes. Discharge Plan Discharge Referrals: [facility], [facility] (Psych) [Other] - 05/31/25 3:00 pm Referral Note: Hospital discharge appointment for psychiatric medication management Evaluation by psychiatric medication provider Appointment in person at [facility]. Please arrive 15 minutes early with your ID and Insurance Card and to complete paperwork. Physician,Unknown J [Primary Care Provider, Medical] - 1 Week Discharge Medications: No Action norethindrone acetate 5 mg tablet 5 mg PO DAILY propranolol 20 mg tablet 30 mg PO TID olanzapine [Zyprexa] 10 mg tablet 10 mg PO BID trazodone 50 mg Tablet 50 mg PO BEDTIME MRX1 PRN (Reason: Insomnia) Qty: 60 0RF dextroamphetamine-amphetamine [Adderall] 30 mg tablet 30 mg PO QAM Qty: 30 0RF Rx Instructions: Partial Fill upon patient request. diazepam 10 mg Tablet 10 mg PO TID PRN (Reason: severe anxiety) Qty: 90 0RF dextroamphetamine-amphetamine [Adderall XR] 30 mg capsule,extended release 24hr 30 mg PO QNOON Qty: 30 0RF Rx Instructions: Partial Fill upon patient request. duloxetine 20 mg capsule,delayed release(DR/EC) 40 mg PO BIDWM Qty: 60 0RF Print Language: [place]
[2025-05-10] MEDS: Dextroamphetamine/Amphetamine XR 10 MG CAP.ER.24H 30 MG PO (11:05)
[2025-05-10 14:33] VITALS: BP 140/100; PULSE 100
--- NOTE | 2025-05-10 18:52 | HO.PSYCHPN ---
Subjective Subjective Date of Service: 05/10/25 Reason For Visit: increased psychiatric Subjective Notes: Conditional Voluntary Healthcare Proxy: No Guardianship: No Medical Problems Affecting Mental Status: No Interim History: Meeting with pt, parents, April West [facility], Guardian jordan marroquin for pt's children, Minh Mayfield [facility]. April prepared pt for what will be upcoming-three two hour observations with pt and her children, custody motions being filed, DCF meetings. Discussed new out pt team pt is putting in place, medication mgt, psychotherapy, [facility] care mgt. Discussed with pt what stress this may create. Pt is prepared and has ideas to manage all stressors involved which she has been working on. Today, she is not feeling well, mono testing negative, but with URI sx. Discussed previous out pt providers not sending in her medications and causing decline due to these unplanned for changes. Will plan discharge for 05/13/25 for her first visit with the children. Medication Compliance: Yes Side effects from medications: No Attending Groups: Intermittent Review of Systems Acute medical concerns: No Medical Review of Systems: unchanged Review of Systems Review of Systems URI sx Mental Status Exam Mental Status Exam Patient Appearance: Appropriate Patient Orientation: Person, Place, Time and Situation Level of Consciousness: Alert Patient Behavior: Talkative, Cooperative and Good Eye Contact Mood Description: Apprehensive Affect Description: Apprehensive Patient Cognition Impaired: No Ability to Follow Directions: Good Speech Pattern: Spontaneous Speech Memory Description: Intact Hallucinations: None Delusions: Not Present Thought Process: Distracted Thought Content: positive for Intact Judgement: Good Diagnostics Vital Signs (24Hr): Vital Signs - 24 hr 05/09/25 20:18 05/10/25 08:00 05/10/25 09:00 Temperature 97.9 F 97.8 F Pulse Rate 103 H 100 100 Respiratory Rate 16 16 Blood Pressure 146/72 H 176/86 H 176/96 H Pulse Oximetry 96 99 Oxygen Delivery Method Room Air Room Air 05/10/25 14:33 Temperature Pulse Rate 100 Respiratory Rate Blood Pressure 140/100 H Pulse Oximetry Oxygen Delivery Method BMI result Body Mass Index 32.9 Labs 05/01/25 21:01 05/03/25 08:06 Labs: Laboratory Results - last 48 hr 05/10/25 05/10/25 09:43 09:44 Hold Purple Top SEE NOTE Monoscreen Negative Medications Medications Current Medications Acetaminophen (Acetaminophen 325 Mg Tablet) 650 mg PO Q6H PRN PRN Reason: Headache/Pain, Scale 1-10 Al Hydroxide/Mg Hydroxide (Magnesium Hydrox/Alum Hydrox 30 Ml Oral.Susp) 30 ml PO Q6H PRN PRN Reason: Heartburn/Nausea Amphetamine/Dextroamphetamine (Dextroamphetamine/Amphetamine Xr 10 Mg Cap.Er.24h) 30 mg PO DAILY@1200 [facility] Last Admin: 05/10/25 11:05 Dose: 30 mg Amphetamine/Dextroamphetamine (Amphetamine Mixed Salts 10 Mg Tablet) 30 mg PO DAILY [facility] Last Admin: 05/10/25 09:01 Dose: 30 mg Diazepam (Diazepam 5 Mg Tablet) 10 mg PO TID PRN PRN Reason: severe anxiety Last Admin: 05/10/25 14:45 Dose: 10 mg Duloxetine HCl (Duloxetine Hcl 20 Mg Capsule.Dr) 40 mg PO BIDWM [facility] Last Admin: 05/10/25 17:37 Dose: 40 mg Hydroxyzine HCl (Hydroxyzine Hcl 25 Mg Tablet) 25 mg PO Q6H PRN PRN Reason: mild anxiety Magnesium Hydroxide (Milk Of Magnesia 30 Ml Oral.Susp) 30 ml PO DAILY PRN PRN Reason: Constipation Nicotine Polacrilex (Nicotine Polacrilex 2 Mg Gum) 4 mg BUCCAL Q2H PRN PRN Reason: Nicotine Cravings Olanzapine (Olanzapine Odt 10 Mg Tab.Rapdis) 10 mg TRANSLINGU BID [facility] Last Admin: 05/10/25 09:01 Dose: 10 mg Propranolol HCl (Propranolol Hcl 10 Mg Tablet) 30 mg PO TID [facility]; Protocol Last Admin: 05/10/25 14:33 Dose: 30 mg Trazodone HCl (Trazodone Hcl 50 Mg Tablet) 50 mg PO BEDTIME MRX1 PRN PRN Reason: Insomnia Last Admin: 05/10/25 17:37 Dose: 50 mg Allergies Allergies Allergy/AdvReac Type Severity Reaction Status Date / Time gluten AdvReac Gastrointestinal Verified 05/01/25 20:48 Upset lithium AdvReac Unknown Verified 05/01/25 20:48 wheat AdvReac Gastrointestinal Verified 05/01/25 20:48 Upset Assessment & Plan Assessment & Plan (1) PTSD (post-traumatic stress disorder): Status: Acute Code(s): F43.10 - Post-traumatic stress disorder, unspecified (2) Bipolar disorder with psychotic features: Status: Acute Code(s): F31.9 - Bipolar disorder, unspecified Plan 49 yo female, to ER with family, 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 Recent M5 admission with medication adjustments that out pt team did not continue post discharge, specifically olanzapine and propranolol. Pt as a result had a decline and return of symptoms. It is unclear why this occurred as pt and mother were present with OP prescriber who said these meds would be continued. Per pharmacy, both were never prescribed by the out pt team. As a result of the error, pt declined, isolating in her apartment, becoming more anxious, less functional than she expects of herself and concerned about her symptoms. She presents voluntarily stating, I felt well on the medicines, I would like to get back on them. Regime was re-established on admission. Hospital course: 05/04 continue treatment plan 05/05 no change in presentation; patient reports she is doing fine; continue current treatment plan 05/06 continue treatment plan 05/08 meeting with parents, children's guardian at [facility] on 05/10. continue tx 05/09 continue tx 05/10 continue tx. DC 05/13. Plan: Admit, CV, 15 minute checks Re-establish regime Encourage milieu engagement Collateral contact Diagnostics as needed Family meeting next week Aftercare provider search Discharge planning Reason for continued inpatient stay Substantial Risk for: rapid decompensation Time Spent With Patient Time: Total time managing care of this patient today ____ minutes.
[2025-05-10 21:42] VITALS: BP 132/80; PULSE 86
[2025-05-10 21:47] VITALS: BP 132/80; PULSE 86; RESP 18; TEMP 36.4; O2SAT 98
[2025-05-11 09:14] VITALS: BP 169/97; PULSE 109; TEMP 36.6; O2SAT 96
[2025-05-11] MEDS: OLANZapine ODT 10 MG TAB.RAPDIS TRANSLINGU ×2 (09:15→20:44)
[2025-05-11] MEDS: Amphetamine Mixed Salts 10 MG TABLET 30 MG PO (09:15)
--- NOTE | 2025-05-11 10:01 | P.PNPSI_ITS ---
Subjective Subjective Date of Service: 05/11/25 Reason For Visit: increased psychiatric Interim History: Things have improved . Reports feeling well today. Tolerating her medications well with no side effects. Was more depressed and anxious yesterday. Today feeling better. Denies SI/HI/AVH. Review of Systems Review of Systems URI sx Mental Status Exam Mental Status Exam Narrative: Pt is alert and oriented; behavior mostly isolative but a little more in the milieu; calm and cooperative; patient is not in distress; dressed in casual attire with unkempt hair but adequate hygiene; mood is described as better and affect congruent, brighter; eye contact appropriate; Speech is normal rate, volume and prosody and not pressured; some psychomotor retardation present; thought process is organized and goal directed; Thought content is on tx, upcoming court; otherwise pertinent to relevant topics and without any delusional content, paranoid ideations or grandiosity; denies any SI/HI. Denies AVH and there is no evidence of perceptual disturbance. Patients insight and judgment appear intact. Patient Appearance: Appropriate Patient Orientation: Person, Place, Time and Situation Level of Consciousness: Alert Patient Behavior: Talkative, Cooperative and Good Eye Contact Mood Description: Apprehensive Affect Description: Apprehensive Patient Cognition Impaired: No Ability to Follow Directions: Good Speech Pattern: Spontaneous Speech Memory Description: Intact Diagnostics Vital Signs (24Hr): Vital Signs - 24 hr 05/10/25 14:33 05/10/25 21:42 05/10/25 21:47 Temperature 97.6 F Pulse Rate 100 86 86 Respiratory Rate 18 Blood Pressure 140/100 H 132/80 132/80 Pulse Oximetry 98 Oxygen Delivery Method Room Air 05/11/25 09:14 05/11/25 09:14 Temperature 98 F Pulse Rate 109 H 109 H Respiratory Rate Blood Pressure 169/97 H 169/97 H Pulse Oximetry 96 Oxygen Delivery Method Room Air BMI result Body Mass Index 32.9 Labs 05/01/25 21:01 05/03/25 08:06 Labs: Laboratory Results - last 48 hr 05/10/25 05/10/25 09:43 09:44 Hold Purple Top SEE NOTE Monoscreen Negative Medications Medications Current Medications Acetaminophen (Acetaminophen 325 Mg Tablet) 650 mg PO Q6H PRN PRN Reason: Headache/Pain, Scale 1-10 Al Hydroxide/Mg Hydroxide (Magnesium Hydrox/Alum Hydrox 30 Ml Oral.Susp) 30 ml PO Q6H PRN PRN Reason: Heartburn/Nausea Amphetamine/Dextroamphetamine (Dextroamphetamine/Amphetamine Xr 10 Mg Cap.Er.24h) 30 mg PO DAILY@1200 [facility] Last Admin: 05/10/25 11:05 Dose: 30 mg Amphetamine/Dextroamphetamine (Amphetamine Mixed Salts 10 Mg Tablet) 30 mg PO DAILY [facility] Last Admin: 05/11/25 09:15 Dose: 30 mg Diazepam (Diazepam 5 Mg Tablet) 10 mg PO TID PRN PRN Reason: severe anxiety Last Admin: 05/11/25 09:47 Dose: 10 mg Duloxetine HCl (Duloxetine Hcl 20 Mg Capsule.Dr) 40 mg PO BIDWM [facility] Last Admin: 05/11/25 09:15 Dose: 40 mg Hydroxyzine HCl (Hydroxyzine Hcl 25 Mg Tablet) 25 mg PO Q6H PRN PRN Reason: mild anxiety Magnesium Hydroxide (Milk Of Magnesia 30 Ml Oral.Susp) 30 ml PO DAILY PRN PRN Reason: Constipation Nicotine Polacrilex (Nicotine Polacrilex 2 Mg Gum) 4 mg BUCCAL Q2H PRN PRN Reason: Nicotine Cravings Olanzapine (Olanzapine Odt 10 Mg Tab.Rapdis) 10 mg TRANSLINGU BID [facility] Last Admin: 05/11/25 09:15 Dose: 10 mg Propranolol HCl (Propranolol Hcl 10 Mg Tablet) 30 mg PO TID [facility]; Protocol Last Admin: 05/11/25 09:14 Dose: 30 mg Trazodone HCl (Trazodone Hcl 50 Mg Tablet) 50 mg PO BEDTIME MRX1 PRN PRN Reason: Insomnia Last Admin: 05/10/25 21:43 Dose: 50 mg Allergies Allergies Allergy/AdvReac Type Severity Reaction Status Date / Time gluten AdvReac Gastrointestinal Verified 05/01/25 20:48 Upset lithium AdvReac Unknown Verified 05/01/25 20:48 wheat AdvReac Gastrointestinal Verified 05/01/25 20:48 Upset Assessment & Plan Assessment & Plan (1) PTSD (post-traumatic stress disorder): Status: Acute Code(s): F43.10 - Post-traumatic stress disorder, unspecified (2) Bipolar disorder with psychotic features: Status: Acute Code(s): F31.9 - Bipolar disorder, unspecified Plan 49 yo female, to ER with family, 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 Recent M5 admission with medication adjustments that out pt team did not continue post discharge, specifically olanzapine and propranolol. Pt as a result had a decline and return of symptoms. It is unclear why this occurred as pt and mother were present with OP prescriber who said these meds would be continued. Per pharmacy, both were never prescribed by the out pt team. As a result of the error, pt declined, isolating in her apartment, becoming more anxious, less functional than she expects of herself and concerned about her symptoms. She presents voluntarily stating, I felt well on the medicines, I would like to get back on them. Regime was re-established on admission. Hospital course: 05/04 continue treatment plan 05/05 no change in presentation; patient reports she is doing fine; continue current treatment plan 05/06 continue treatment plan 05/08 meeting with parents, children's guardian at [facility] on 05/10. continue tx 05/09 continue tx 05/10 continue tx. DC 05/13. 05/11: continue current management and treatment plan. Plan: Admit, CV, 15 minute checks Re-establish regime Encourage milieu engagement Collateral contact Diagnostics as needed Family meeting next week Aftercare provider search Discharge planning Reason for continued inpatient stay Substantial Risk for: inability to function and rapid decompensation Time Spent With Patient Time: Total time managing care of this patient today ____ minutes.
[2025-05-11] MEDS: Dextroamphetamine/Amphetamine XR 10 MG CAP.ER.24H 30 MG PO (11:02)
[2025-05-11 15:22] VITALS: BP 135/86; PULSE 92
[2025-05-11 19:48] VITALS: BP 131/63; PULSE 94; RESP 18; TEMP 36.4; O2SAT 97
[2025-05-12 08:00] VITALS: BP 139/67; PULSE 75; TEMP 36.4; O2SAT 96
[2025-05-12] MEDS: OLANZapine ODT 10 MG TAB.RAPDIS TRANSLINGU ×2 (08:36→20:06)
[2025-05-12] MEDS: Amphetamine Mixed Salts 10 MG TABLET 30 MG PO (08:36)
--- NOTE | 2025-05-12 09:31 | HO.PSYCHPN ---
Subjective Subjective Date of Service: 05/12/25 Reason For Visit: increased psychiatric Interim History: Reports I have had a good couple of days. She is social and visible in the milieu. More hopeful and optimistic. Tolerating her medications well with no side effects. Denies SI/HI/AVH. Review of Systems Review of Systems URI sx Mental Status Exam Mental Status Exam Narrative: Pt is alert and oriented; behavior mostly isolative but a little more in the milieu; calm and cooperative; patient is not in distress; dressed in casual attire with unkempt hair but adequate hygiene; mood is described as better and affect congruent, brighter; eye contact appropriate; Speech is normal rate, volume and prosody and not pressured; some psychomotor retardation present; thought process is organized and goal directed; Thought content is on tx, upcoming court; otherwise pertinent to relevant topics and without any delusional content, paranoid ideations or grandiosity; denies any SI/HI. Denies AVH and there is no evidence of perceptual disturbance. Patients insight and judgment appear intact. Patient Appearance: Appropriate Patient Orientation: Person, Place, Time and Situation Level of Consciousness: Alert Patient Behavior: Talkative, Cooperative and Good Eye Contact Mood Description: Apprehensive Affect Description: Apprehensive Patient Cognition Impaired: No Ability to Follow Directions: Good Speech Pattern: Spontaneous Speech Memory Description: Intact Diagnostics Vital Signs (24Hr): Vital Signs - 24 hr 05/11/25 15:22 05/11/25 19:48 05/12/25 08:00 Temperature 97.6 F 97.6 F Pulse Rate 92 94 75 Respiratory Rate 18 Blood Pressure 135/86 131/63 139/67 Pulse Oximetry 97 96 Oxygen Delivery Method Room Air Room Air BMI result Body Mass Index 32.9 Labs 05/01/25 21:01 05/03/25 08:06 Labs: Laboratory Results - last 48 hr 05/10/25 05/10/25 09:43 09:44 Hold Purple Top SEE NOTE Monoscreen Negative Medications Medications Current Medications Acetaminophen (Acetaminophen 325 Mg Tablet) 650 mg PO Q6H PRN PRN Reason: Headache/Pain, Scale 1-10 Al Hydroxide/Mg Hydroxide (Magnesium Hydrox/Alum Hydrox 30 Ml Oral.Susp) 30 ml PO Q6H PRN PRN Reason: Heartburn/Nausea Amphetamine/Dextroamphetamine (Dextroamphetamine/Amphetamine Xr 10 Mg Cap.Er.24h) 30 mg PO DAILY@1200 [facility] Last Admin: 05/11/25 11:02 Dose: 30 mg Amphetamine/Dextroamphetamine (Amphetamine Mixed Salts 10 Mg Tablet) 30 mg PO DAILY [facility] Last Admin: 05/12/25 08:36 Dose: 30 mg Diazepam (Diazepam 5 Mg Tablet) 10 mg PO TID PRN PRN Reason: severe anxiety Last Admin: 05/11/25 18:36 Dose: 10 mg Duloxetine HCl (Duloxetine Hcl 20 Mg Capsule.Dr) 40 mg PO BIDWM [facility] Last Admin: 05/12/25 08:36 Dose: 40 mg Hydroxyzine HCl (Hydroxyzine Hcl 25 Mg Tablet) 25 mg PO Q6H PRN PRN Reason: mild anxiety Last Admin: 05/11/25 18:36 Dose: 25 mg Magnesium Hydroxide (Milk Of Magnesia 30 Ml Oral.Susp) 30 ml PO DAILY PRN PRN Reason: Constipation Nicotine Polacrilex (Nicotine Polacrilex 2 Mg Gum) 4 mg BUCCAL Q2H PRN PRN Reason: Nicotine Cravings Olanzapine (Olanzapine Odt 10 Mg Tab.Rapdis) 10 mg TRANSLINGU BID [facility] Last Admin: 05/12/25 08:36 Dose: 10 mg Propranolol HCl (Propranolol Hcl 10 Mg Tablet) 30 mg PO TID [facility]; Protocol Last Admin: 05/12/25 08:36 Dose: 30 mg Trazodone HCl (Trazodone Hcl 50 Mg Tablet) 50 mg PO BEDTIME MRX1 PRN PRN Reason: Insomnia Last Admin: 05/11/25 20:44 Dose: 50 mg Allergies Allergies Allergy/AdvReac Type Severity Reaction Status Date / Time gluten AdvReac Gastrointestinal Verified 05/01/25 20:48 Upset lithium AdvReac Unknown Verified 05/01/25 20:48 wheat AdvReac Gastrointestinal Verified 05/01/25 20:48 Upset Assessment & Plan Assessment & Plan (1) PTSD (post-traumatic stress disorder): Status: Acute Code(s): F43.10 - Post-traumatic stress disorder, unspecified (2) Bipolar disorder with psychotic features: Status: Acute Code(s): F31.9 - Bipolar disorder, unspecified Plan 49 yo female, to ER with family, 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 Recent M5 admission with medication adjustments that out pt team did not continue post discharge, specifically olanzapine and propranolol. Pt as a result had a decline and return of symptoms. It is unclear why this occurred as pt and mother were present with OP prescriber who said these meds would be continued. Per pharmacy, both were never prescribed by the out pt team. As a result of the error, pt declined, isolating in her apartment, becoming more anxious, less functional than she expects of herself and concerned about her symptoms. She presents voluntarily stating, I felt well on the medicines, I would like to get back on them. Regime was re-established on admission. Hospital course: 05/04 continue treatment plan 05/05 no change in presentation; patient reports she is doing fine; continue current treatment plan 05/06 continue treatment plan 05/08 meeting with parents, children's guardian at [facility] on 05/10. continue tx 05/09 continue tx 05/10 continue tx. DC 05/13. 05/11: continue current management and treatment plan. 05/12: continue current management and treatment plan. Plan: Admit, CV, 15 minute checks Re-establish regime Encourage milieu engagement Collateral contact Diagnostics as needed Family meeting next week Aftercare provider search Discharge planning Reason for continued inpatient stay Substantial Risk for: inability to function and rapid decompensation Time Spent With Patient Time: Total time managing care of this patient today ____ minutes.
[2025-05-12] MEDS: Dextroamphetamine/Amphetamine XR 10 MG CAP.ER.24H 30 MG PO (12:01)
[2025-05-12 14:35] VITALS: BP 139/87; PULSE 106
[2025-05-12 20:00] VITALS: BP 137/85; PULSE 100; RESP 16; TEMP 37; O2SAT 95
[2025-05-12 20:06] VITALS: BP 137/85; PULSE 100
[2025-05-13 08:00] VITALS: BP 143/86; PULSE 98; RESP 18; TEMP 2.4; TEMP 36.4; O2SAT 98
[2025-05-13 08:58] VITALS: BP 143/86; PULSE 99
[2025-05-13] MEDS: Amphetamine Mixed Salts 10 MG TABLET 30 MG PO (08:58)
[2025-05-13] MEDS: OLANZapine ODT 10 MG TAB.RAPDIS TRANSLINGU (08:59)
--- NOTE | 2025-05-13 09:48 | PM.PSYDC ---
DS: Providers Provider Date of Service: 05/13/25 Date of admission: 05/02/25 11:52 Date of discharge: 05/13/25 Primary care physician: Unknown Physician Admitting clinician: Paige Mccallum Attending physician on admission: Cheko Ferguson Attending physician on discharge: Cheko Ferguson Discharging clinician: Paige Mccallum DS: Diagnosis Discharge Diagnosis (1) PTSD (post-traumatic stress disorder): Status: Acute (2) Bipolar disorder with psychotic features: Status: Deleted DS: Medications Discharge Medications Home Medications: Home Medications ?Medication ?Instructions ?Recorded ?Confirmed norethindrone acetate 5 mg tablet 5 mg PO DAILY 05/01/25 05/01/25 Previous Rx's ?Medication ?Instructions ?Recorded dextroamphetamine-amphetamine 30 30 mg PO QAM #30 tabs 25 mg tablet (Adderall) dextroamphetamine-amphetamine ER 30 mg PO QNOON #30 caps 05/13/25 30 mg 24hr capsule,extend release (Adderall XR) diazepam 10 mg tablet 10 mg PO TID PRN severe anxiety 05/13/25 #90 tabs duloxetine 20 mg capsule,delayed 40 mg (2 x 20 mg) PO BIDWM #120 05/13/25 release caps hydroxyzine HCl 25 mg tablet 25 mg PO Q6H PRN mild anxiety #30 05/13/25 tabs olanzapine 10 mg tablet (Zyprexa) 10 mg PO BID #60 tabs 05/13/25 propranolol 20 mg tablet 30 mg (1.5 x 20 mg) PO TID #90 tabs 05/13/25 trazodone 50 mg tablet 50 mg PO BEDTIME MRX1 PRN Insomnia 05/13/25 #60 tabs Mental Status Exam Mental Status Exam Patient Appearance: Appropriate Patient Orientation: Person, Place, Time and Situation Level of Consciousness: Alert Patient Behavior: Talkative, Cooperative and Good Eye Contact Mood Description: Apprehensive Affect Description: Apprehensive Patient Cognition Impaired: No Ability to Follow Directions: Good Speech Pattern: Spontaneous Speech Memory Description: Intact Hallucinations: None Delusions: Not Present Thought Process: Distracted Thought Content: positive for Intact Judgement: Good Data Data Completed and Pending Completed studies during hospitalization [Text1]: 05/10/25 05/10/25 09:43 09:44 Hold Purple Top SEE NOTE Monoscreen Negative DS: Summary Hospital Course Hospital Course: Admission to adult psychiatry for exacerbation of bipolar disorder with psychotic features and PTSD. Prior to admission, pt's out patient team at [facility] stopped Olanzapine and Propranolol, causing pt to have an increase in symptoms. Medications were evaluated and dosages previously established with stability were re-started. 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 A meeting was held with parents and grain mill products inspector. New out pt referrals were secured. Pt discharged to her home to continue her work, symptoms were resolved and she continues to work on her goals to re-unite her family. Status at Discharge Functional status at discharge: independent ambulation Overall status at discharge: patient is back to baseline Time Spent with Patient Time attestation: Total time managing care of this patient today ____ minutes. Time spent: Less than 30 minutes Discharge Plan Discharge Anticipated Discharge Date/Time: 05/13/25 11:00 Patient Disposition: Home, Self-Care Discharge Diagnosis: PTSD Bipolar Disorder ADHD Referrals: Mack THORPE, [facility] (Psych) [Other] - 05/31/25 3:00 pm Referral Note: Hospital discharge appointment for psychiatric medication management Evaluation by psychiatric medication provider Appointment in person at [facility]. Please arrive 15 minutes early with your ID and Insurance Card and to complete paperwork. Department of Mental Health : Loni Rehman [Other] - 1 Week Referral Note: [facility] Release And Technical Records Clerk information Bogdan Pearce FNP-BC [Nurse Practitioner, Internal Medicine] - 1 Week Referral Note: Please call office or reach out through Mobile/Portal to schedule follow up appointment with Bogdan Pearce in 1 week. We were unable to reach the office to schedule an appointment. Discharge Medications: New hydroxyzine HCl 25 mg Tablet 25 mg PO Q6H PRN (Reason: mild anxiety) Qty: 30 0RF Continued norethindrone acetate 5 mg tablet 5 mg PO DAILY dextroamphetamine-amphetamine [Adderall] 30 mg tablet 30 mg PO QAM Qty: 30 0RF Rx Instructions: Partial Fill upon patient request. dextroamphetamine-amphetamine [Adderall XR] 30 mg capsule,extended release 24hr 30 mg PO QNOON Qty: 30 0RF Rx Instructions: Partial Fill upon patient request. trazodone 50 mg Tablet 50 mg PO BEDTIME MRX1 PRN (Reason: Insomnia) Qty: 60 1RF olanzapine [Zyprexa] 10 mg tablet 10 mg PO BID Qty: 60 1RF diazepam 10 mg Tablet 10 mg PO TID PRN (Reason: severe anxiety) Qty: 90 1RF propranolol 20 mg tablet 30 mg PO TID Qty: 90 1RF duloxetine 20 mg capsule,delayed release(DR/EC) 40 mg PO BIDWM Qty: 120 1RF Discharge Orders: Discharge Order (Routine); Ordered 05/13/25 Ordered By: Paige Mccallum Diet: Advance to usual diet Activity on Discharge: As tolerated Stand Alone Forms: Patient Portal Discharge page, Community Support Print Language: Monegasque Care Plan Goals: Mood and Behavioral Stabilization Health Concerns: Mood and Behavioral Stabilization Plan of Treatment: Attend scheduled appointments Take medications as directed Call Jossy MACHADO for psychotherapy appointment [phone] Assessment: Pt agrees with plan of care No SI,HI,AH,VH Discharge Date/Time: 05/13/25 11:37
[2025-05-13] MEDS: Dextroamphetamine/Amphetamine XR 10 MG CAP.ER.24H 30 MG PO (11:11)
== END 2025-05-13 11:37 | disposition home or self-care (01) | DRG 753 ==
LOC: HO.ED 05-02 12:22 → HO.PM5 05-02 13:14
PROVIDERS: Physician Assistant Medical; Admitting Provider Nurse Practitioner Family; Emergency Provider Emergency Medicine; Visit Provider Clinical Nurse Specialist Psychiatric/Mental Health, Adult
DX: F31.9 Bipolar disorder, unspecified (principal); F41.9 Anxiety disorder, unspecified; I10 Essential (primary) hypertension; F43.10 Post-traumatic stress disorder, unspecified; F90.9 Attention-deficit hyperactivity disorder, unspecified type; N93.8 Other specified abnormal uterine and vaginal bleeding; Z20.822 Contact with and (suspected) exposure to COVID-19; Z59.01 Sheltered homelessness; Z79.899 Other long term (current) drug therapy
CPT/HCPCS: 36415; 73660; 80053; 80061; 80143; 80179; 80307; 81001; 81003; 81025; 83036; 85025; 86308; 87635; 93005; 99285; S9485

== ENCOUNTER → 2025-05-01 20:50 | Outpatient (BNV) | payer MEDICARE, MEDICAID, SELFPAY | PROVIDERS: Emergency Provider Emergency Medicine; Visit Provider Internal Medicine Cardiovascular Disease | DX: Z13.6 Encounter for screening for cardiovascular disorders (principal) | CPT/HCPCS: 93010 ==

== ENCOUNTER → 2025-05-01 20:50 | Outpatient (BNV) | payer MEDICARE, MEDICAID, SELFPAY | PROVIDERS: Emergency Provider Emergency Medicine; Visit Provider Student in an Organized Health Care Education/Training Program | DX: M79.675 Pain in left toe(s) (principal) | CPT/HCPCS: 73660 ==

== ENCOUNTER → 2025-05-02 11:52 | Outpatient (BNV) | payer OTHER, MEDICARE, SELFPAY | PROVIDERS: Admitting Provider Nurse Practitioner Family; Emergency Provider Emergency Medicine; Visit Provider Psychiatry & Neurology Psychiatry | DX: F31.4 Bipolar disorder, current episode depressed, severe, without psychotic features (principal); F43.11 Post-traumatic stress disorder, acute | CPT/HCPCS: 90792; 99231; 99232 ==

== ENCOUNTER → 2025-05-02 11:52 | Outpatient (BNV) | payer OTHER, MEDICARE, SELFPAY | PROVIDERS: Admitting Provider Nurse Practitioner Family; Emergency Provider Emergency Medicine; Visit Provider Nurse Practitioner Family | DX: I10 Essential (primary) hypertension (principal) | CPT/HCPCS: 99221 ==

== ENCOUNTER 2025-06-14 17:16 | Emergency (ER) | payer OTHER, SELFPAY ==
[2025-06-14 17:24] VITALS: BP 134/75; PULSE 88; RESP 18; TEMP 36.3; O2SAT 97; BMI 34.9
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
--- OUTSIDE RECORDS SUMMARY | 2025-06-14 18:18 | XMS_ITS | Encounter Summary ---
Author Organization [facility] Address [address] [place] [address] Phone Care Team Providers Care Machine Hose Cutter Name Role Phone Adelso Valentin MD Unavailable [phone] Angel Pearce CNP Primary Care Provider [phone] Reason for Visit * Reason Onset Date Comments TCM Visit 03/27/2025 Encounter Details Date Type Department Care Team (Late st Contact Info) Description 03/27/2025 Telephone Bina Lemos [facility] [address] [place] [address] Angel Pearce, KOFI [address] [place] [address] [email or web address] TCM Visit Social History Tobacco Use Types Packs/Day Years Used Date Smoking Tobacco: Never Smokeless Tobacco: Never Alcohol Use Standard Drinks/Week Comments Never 0 (1 standard drink = 0.6 oz pur e alcohol) Child or Family Care Answer Date Record ed Do you have problems with on e of the following making it difficult for you to work, study, or receive health care? No 03/02/2024 Education Answer Date Recorded Are you interested in help w ith more adult education (for example, completing high school, GED, job training, learning the [place] language, technical skills, or developing parenting skills)? No 03/02/2024 Are you concerned about learning? Not on file 03/02/2024 No 03/02/2024 Yes 03/02/2024 Food Answer Date Recorded Within the past 6 months we worried whether our food would run out before we got money to buy more. Unable to assess 025 Within the past 6 months the food we bought just didn't last and we didn't have enough money to get more. Unable to assess 10/05/2024 Residential Stability Answer Date Recor ded What is your housing situation today? Unable to assess 10/05/2024 How many times have you moved in the past 12 mon ths? Unable to assess 10/05/2024 Paying for Meds Answer Date Recorded Do you have trouble paying for medicines? Unable to assess 10/05/2024 Paying Utility Bills Answer Date Record ed Do you have trouble paying y our heating or electricity bill? Unable to assess 10/05/2024 Transportation Answer Date Recorded Has the lack of transportati on kept you from medical appointments or from getting medications? Unable to assess 10/05/2024 Digital Access Answer Date Recorded No 10/05/2024 No 10/05/2024 Do you have reliable internet access at home? Un able to assess 10/05/2024 Do you have a device (e.g., phone, tablet, computer) with a working camera? Unable to assess 10/05/2024 Intimate Partner Violence Answer Date R ecorded Are you denied basic needs s uch as food, clothing, or medical care? No 11/23/2024 In the past 12 months have y ou been in a relationship with a person who hurts, threatens, or tries to control you? No 11/23/2024 Are you denied basic needs s uch as food, clothing, or medical care? No 11/23/2024 In the past 12 months have y ou been in a relationship with a person who hurts, threatens, or tries to control you? No 11/23/2024 Comments No Sex and Gender Information Value Date Recorded Sex Assigned at Female 06/18/2021 7:07 AM EST Legal Sex Female 12:00 PM EDT Gender Identity Female 06/18/2021 7:07 AM EST Sexual Orientation Straight 10/02/2021 12 :12 AM EST documented as of this encounter Progress Notes * Fortunato Boston - 04/02/2025 2:28 PM EDT Pt called in, had to reschedule due to an appt conflict. Changed to 04/10. Central Support Telephoner (Please do not reply to this user; this inbox is not monitored.) Thank you. * Fortunato Boston - 03/27/2025 10:33 AM EDT Transitional Care Management New Patient: YES/NO: no [facility] [facility] [place] Date: 03/27/2025 Reason for Visit+ Diagnosis: decompensated disorganized thoughts Is the discharge summary in patient chart:YES/NO: no If not did you inform the patient/patient advocate to fax it to the office: YES/NO: yes Please inform the patient/patient advocate to fax and bring a copy to the appt. Appointment Date: 04/03/2025 Is the appt: virtual in person: in person Awareness: Appt need to be schedule with in 2 to 14 calendar days from discharge date Additional Note (if applicable): [facility] # [phone] [facility] Call Center CSS Agent (Please do not reply to this user, as this inbox is not monitored. Thank you.) Thank you. documented in this encounter Plan of Treatment Upcoming Encounters Date Type Department Care Team (Late st Contact Info) Description 07/27/2024 Procedure Pass [address] [address] 08/23/2025 10:30 AM EST Office Visit [address] [address] Angel Pearce, KOFI [address] [place] [phone] [email or web address] 11/18/2025 1:15 PM EDT Appointment [address] [address] Angel Pearce CNP [address] [place] [address] [email or web address] documented as of this encounter Visit Diagnoses Not on filedocumented in this encounter Additional Health Concerns Assessment Noted Time PHQ-9 Depression Total Score: 6 06/10/20 23 9:07 AM EST PHQ-2 Depression Total Score: 0 03/02/20 24 9:28 AM EDT documented as of this encounter Care Teams Machine Hose Cutter Relationship Specialty Start Date End Date Angel Pearce CNP [address] [facility] [place] [address] PCP - General Family Medicine 12/23/22 Adelso Valentin MD [address] [place] [address], [address] [place] [address] Historical LMR Provider 05/11/17 Shelli Reinoso [address] [facility] [address] Psychiatrist Psychiatry 11/22/22 documented as of this encounter Additional Source Comments The information contained in this document represents components of the legal health record. It is not the complete legal health record.[facility]
--- OUTSIDE RECORDS SUMMARY | 2025-06-14 18:19 | XMS_ITS | Encounter Summary ---
Author Organization [facility] Address [address] [place] [address] Phone Care Team Providers Care Run Boat Operator Name Role Phone Adelso Valentin MD Primary Care Provider [phone] Michael De La O, PhD Unavailable [phone] Orville Cornell MD Unavailable [phone] Naina Bledsoe Unavailable Unavailab Adelso Smith MD Unavailable [phone] Adelso Nguyen MD Unavailable [phone] Natasha Marcano CHOCOLATE MAKER Primary Care Provider [phone] Jennifer Levi CHOCOLATE MAKER Primary Care Provider [phone] Angel Pearce UNDERTAKER ASSISTANT Primary Care Provider [phone] Encounter Details Date Type Department Care Team (Late st Contact Info) Description 06/18/2021 Procedure Pass [facility], Ct Scan - [address] [address] Social History Tobacco Use Types Packs/Day Years Used Date Smoking Tobacco: Never Smokeless Tobacco: Never Alcohol Use Standard Drinks/Week Comments Never 0 (1 standard drink = 0.6 oz pur e alcohol) Comments No Sex and Gender Information Value Date Recorded Sex Assigned at Female 06/18/2021 7:07 AM EST Legal Sex Female 12:00 PM EDT Gender Identity Female 06/18/2021 7:07 AM EST Sexual Orientation Straight 10/02/2021 12 :12 AM EST documented as of this encounter Functional Status * Calculated C-SSRS Risk Score (Lifetime/Recent) Answer Date of Assessment Author No Risk Indicated 06/18/2021 7:06 AM Anat De RN * [place] Suicide Severity Rating Scale (Screener/Recent Self-Report) Question Answer Date of Assessment Author 1. Wish to be (Past 1 Month) No 021 7:06 AM Anat eD RN 2. Non-Specific Active Suici lashaun Thoughts (Past 1 Month) No 06/18/2021 7:06 AM Anat De RN 6. Suicidal Behavior (Lifetime) No 7:06 AM Anat De RN documented as of this encounter Plan of Treatment Upcoming Encounters Date Type Department Care Team (Late st Contact Info) Description 07/27/2024 Procedure Pass [address] [address] 08/23/2025 10:30 AM EST Office Visit [address] [address] Angel Pearce, UNDERTAKER ASSISTANT [address] [place] [address] 11/18/2025 1:15 PM EDT Appointment [address] [address] Angel Pearce, UNDERTAKER ASSISTANT [address] [place] [address] documented as of this encounter Visit Diagnoses Not on filedocumented in this encounter Additional Health Concerns Infection Onset Date Last Indicated Resolved Time CoV-Risk 06/18/2021 06/18/2021 06/20/2021 7:18 PM EST CoV-Exposed 06/18/2021 06/20/2021 07/02/2021 1:22 AM EST CoV-Risk 02/09/2022 02/09/2022 02/09/2022 2:3 6 PM EDT COVID-19 02/09/2022 02/09/2022 03/02/2022 1:21 AM EDT C. diff 07/01/2022 07/01/2022 07/31/2022 1:21 AM EST documented as of this encounter Care Teams Run Boat Operator Relationship Specialty Start Date End Date Adelso Valentin MD [address] [place] [address], [address] [place] [address] [email or web address] PCP - General Internal Medicine 03/10/16 06/18/21 Natasha Marcano, SINAI [address] [place] [address] PCP - General 06/19/21 12/03/21 Jennifer Levi NP [address] [place] [address] PCP - General Family Medicine 12/04/21 12/22/22 Angel Pearce, KOFI [address] [place] [address] [place] [address] [email or web address] PCP - General Family Medicine 12/23/22 Michael De La O MBBS, PhD [address] [place] [address] [email or web address] Historical LMR Provider 05/11/1708/01/21 Orville Cornell MD [address] [place] [address], [address] [place] [address] [email or web address] Historical LMR Provider 05/11/17 08/01/21 Naina Bledsoe LICSW Historical LMR Provider 05/11/17 08/01/21 Adelso Valentin MD [address] [facility], [address] [place] [address] [email or web address] Historical LMR Provider 05/11/17 Adelso Nguyen MD [address] [place] [address] [email or web address] Historical LMR Provider 05/11/17 08/01/21 Shelli Reinoso [address] [place] [address] Psychiatrist Psychiatry 11/22/22 documented as of this encounter Additional Source Comments The information contained in this document represents components of the legal health record. It is not the complete legal health record.[facility]
--- OUTSIDE RECORDS SUMMARY | 2025-06-14 18:19 | XMS_ITS | Encounter Summary ---
Author Organization [facility] Address [facility] Night Zookeeper [address] [address] Phone Care Team Providers Care Industrial Diamond Polisher Name Role Phone Adelso Valentin MD Unavailable [phone] Angel Pearce PICTURE HANGER Primary Care Provider [phone] Reason for Visit * Reason Onset Date Comments Hair Follicle Test 03/14/2025 Encounter Details Date Type Department Care Team (Late st Contact Info) Description 03/14/2025 Telephone Bina Lemos [facility] [address] [place] [address] Angel Pearce, PICTURE HANGER [address] [place] [address] [email or web address] Hair Follicle Test Social History Tobacco Use Types Packs/Day Years [...] high school, GED, job training, learning the Bahraini language, technical skills, or developing parenting skills)? [...] as of this encounter Progress Notes * Emily Easton, TRAVIS - 03/14/2025 10:57 AM EDT Attempted to reach yudi Lindsay with contact information. Office does not order hair follicle testing for drug history, urgent care would be able to. Also sent portal message. * Ophelia Benson - 03/14/2025 8:41 AM EDT Pt called and states she needs a hair follicle test for court and was told her PCP can order this, she has court again on 03/18/25 and needs proof of this for court, please contact and advise [phone] documented in this encounter Plan of Treatment Upcoming Encounters Date Type Department Care Team (Late st Contact Info) Description 07/27/2024 Procedure Pass [address] [address] 08/23/2025 10:30 AM EST Office Visit Bina Lemos [address] [address] Angel Pearce CNP [address] [place] [address] 11/18/2025 1:15 PM EDT Appointment [address] [address] Angel Pearce CNP [address] [place] [address] [email or web address] documented as of this encounter Visit Diagnoses Not on filedocumented in this encounter Additional Health Concerns Assessment Noted Time PHQ-9 Depression Total Score: 6 06/10/20 23 9:07 AM EST PHQ-2 Depression Total Score: 0 03/02/20 24 9:28 AM EDT documented as of this encounter Care Teams Industrial Diamond Polisher Relationship Specialty Start Date End Date Angel Pearce CNP [address] [place] [address] PCP - General [facility] Medicine 12/23/22 Adelso Valentin MD [address] [place] [address], [address] [place] [address] Historical LMR Provider 05/11/17 Shelli Reinoso [address] [place] [address] Psychiatrist Psychiatry 11/22/22 documented as of this encounter Additional Source Comments The information contained in this document represents components of the legal health record. It is not the complete legal health record.[facility]
--- OUTSIDE RECORDS SUMMARY | 2025-06-14 18:19 | XMS_ITS | Encounter Summary ---
Author Organization [facility] Address [address] [place] [address] Phone Care Team Providers Care Silk Screen Operator Name Role Phone Adelso Valentin MD Primary Care Provider [phone] Michael De La O, PhD Unavailable [phone] Orville Cornell MD Unavailable [phone] Naina Bledsoe Unavailable Unavailab Adelso Smith MD Unavailable [phone] Adelso Nguyen MD Unavailable [phone] Natasha Marcano CIGARETTE EXAMINER Primary Care Provider Jennifer Levi CIGARETTE EXAMINER Primary Care Provider [phone] Angel Pearce DRY COLOR MIXER Primary Care Provider [phone] Encounter Details Date Type Department Care Team (Late st Contact Info) Description 06/18/2021 Procedure Pass [facility], Ct Scan - [address] [address] Social History Tobacco Use Types Packs/Day Years [...] 06/18/2021 7:06 AM Anat De RN * [place] Suicide Severity Rating Scale (Screener/Recent Self-Report) Question Answer Date of Assessment Author 1. Wish to be (Past 1 Month) No 021 7:06 AM Anat De RN 2. Non-Specific Active Suici lashaun Thoughts (Past 1 Month) No 06/18/2021 7:06 AM Anat De RN 6. Suicidal Behavior (Lifetime) No 7:06 AM Anat De RN documented as of this encounter Plan of Treatment Upcoming Encounters Date Type Department Care Team (Late st Contact Info) Description 07/27/2024 Procedure Pass [address] [address] 08/23/2025 10:30 AM EST Office Visit [address] [address] Angel Pearce, DRY COLOR MIXER [address] [place] [address] 11/18/2025 1:15 PM EDT Appointment [address] [address] Angel Pearce, DRY COLOR MIXER [address] [place] [address] documented as of this encounter Visit Diagnoses [...] documented as of this encounter Care Teams Silk Screen Operator Relationship Specialty Start Date End Date Adelso Valentin MD [address] [place] [address], [address] [place] [address] [email or web address] PCP - General Internal Medicine 03/10/16 06/18/21 Natasha Marcano, SINAI [address] [place] [address] PCP - General 06/19/21 12/03/21 Jennifer Levi NP [address] [place] [address] PCP - General Family Medicine 12/04/21 12/22/22 Angel Pearce, KOFI [address] [place] [address] [place] [address] [email or web address] PCP - General Family Medicine 12/23/22 Michael De La O MBBS, PhD [address] [place] [address] [email or web address] Historical LMR Provider 05/11/1708/01/21 Orville Cornell MD [address] [place] [address], [address] [place] [address] [email or web address] Historical LMR Provider 05/11/17 08/01/21 Naina Bledsoe LICSW Historical LMR Provider 05/11/17 08/01/21 Adelso Valentin MD [address] [facility], [address] [place] [address] [email or web address] Historical LMR Provider 05/11/17 Adelso Nguyen MD [address] [place] [address] [email or web address] Historical LMR Provider 05/11/17 08/01/21 Shelli Reinoso [address] [place] [address] Psychiatrist Psychiatry 11/22/22 documented as of this encounter Additional Source Comments The information contained in this document represents components of the legal health record. It is not the complete legal health record.[facility]
--- OUTSIDE RECORDS SUMMARY | 2025-06-14 18:19 | XMS_ITS | Data Portability ---
Author Organization [place] - [facility] Address [address] [place] [address] Assessment Encounter Date Assessment Date Assessment LastModified by Organization Details LastModified Time 05/23/2018 05/23/2018 routine OB ecoci Not available 15:50:14 05/31/2018 05/31/2018 routine OB ecoci Not available 01/2018 11:26:00 Plan of Treatment Reminders Order Date Submit Date Provider Last Modified By Organization Details Last Modified Time Details Appointments None recorded. Lab CT + NG DNA, PCR, unspecified specimen 2017 [facility], [address] [place] [address], [id number] 8 14:20:05 streptococc us group B DNA 2017 [facility], [address] [place] [address], [id number] 8 14:20:05 Referral None recorded. Procedures None recorded. Surgeries None recorded. Imaging non-stress test 2017 018 cristi woodard In-Office Order, Internal Use Only DO Not Attach Compendium DO Not Attach Compendium, Do Not Delete/merge, [id number] 8 06:38:30 Medication Orders None recorded. Patient TargetsNo targets recorded. Patient Instructions Encounter Date Encounter Id Patient Instructions Last Modified By Organization Details Last Modified Time 05/17/2018 [id number] elevated blood pressure: care instructions Not available 05/29/2018 14:34:57 After Age 35: Care Instructions [email or web address] Not available 05/29/2018 14:34:57 Patient states that [...] for growth. Not available 05/29/2018 14:40:28 05/31/2018 [id number] elevated blood pressure: care instructions Not available 06/06/2018 06:38:30 Reason for Referral None Reported. Results Created Date Observation Date Name Description Value Unit Range Abnormal Flag Note LastModifiedBy Organization Detail LastModifiedTime 05/17/20 18 05/17/2018 non-s tress test EDC Not Available In-Office Order Internal Use Only DO Not Attach Compendium DO Not Attach Compendium, Do Not Delete/merge, [id number] 05/17/2018 13:47:03 05/17/2005/17/2018 non-s tress test Weeks gestation by Ultras ound Not Available In-Office Order Internal Use Only DO Not Attach Compendium DO Not Attach Compendium, Do Not Delete/merge, [id number] 05/17/2018 13:47:03 05/17/20 18 05/17/2018 non-s tress test Heart Rate 14- Not Available In-Off ice Order Internal Use Only DO Not Attach Compendium DO Not Attach Compendium, Do Not Delete/merge, [id number] 05/17/2018 13:47:03 05/17/2005/17/2018 non-s tress test FHR Baseline (bpm) 140 Not Available In-Off ice Order Internal Use Only DO Not Attach Compendium DO Not Attach Compendium, Do Not Delete/merge, [id number] 05/17/2018 13:47:03 05/17/20 18 05/17/2018 non-s tress test FHR Variability Modera te, 6-25 Not Available In-Office Order Internal Use Only DO Not Attach Compendium DO Not Attach Compendium, Do Not Delete/merge, [id number] 05/17/2018 13:47:03 05/17/20 18 05/17/2018 non-s tress test Acceleration s 140-18 0 Not Available In-Office Order Internal Use Only DO Not Attach Compendium DO Not Attach Compendium, Do Not Delete/merge, [id number] 05/17/2018 13:47:03 05/17/20 18 05/17/2018 non-s tress test Interpretati on REACTI VE Not Available In-Office Order Internal Use Only DO Not Attach Compendium DO Not Attach Compendium, Do Not Delete/merge, [id number] 05/17/2018 13:47:03 05/17/20 18 05/17/2018 non-s tress test Recommendati ons As clinic ally indica obie Not Available In-Office Order Internal Use Only DO Not Attach Compendium DO Not Attach Compendium, Do Not Delete/merge, [id number] 05/17/2018 13:47:03 05/23/20 18 05/24/2018 CT + NG DNA, PCR, unspe cifie d speci men source CVX Not Available [facility] [address] [place] [address], [id number] 05/25/2018 14:20:05 05/23/20 18 05/24/2018 CT + NG DNA, PCR, unspe cifie d speci men chlamydia by DNA Negati ve negati ve Not Available [facility] [address] [place] [address], [address] 05/25/2018 14:20:05 05/23/20 18 05/24/2018 CT + NG DNA, PCR, unspe cifie d speci men GC by DNA Negati ve negati ve Not Available [facility] [address] [place] [address], [address] 05/25/2018 14:20:05 05/23/20 18 05/25/2018 strep tococ cus group B DNA source V Not Available [facility] [address] [place] [address], [id number] 05/25/2018 14:20:05 05/23/20 18 05/25/2018 strep tococ [...] the anal sphin cter) . Not Available [facility] [address] [place], [address] 05/25/2018 14:20:05 05/31/20 18 05/31/2018 non-s tress test EDC Not Available In-Office Order Internal Use Only DO Not Attach Compendium DO Not Attach Compendium, Do Not Delete/merge, [id number] 05/31/2018 13:11:23 05/31/20 18 05/31/2018 non-s tress test Weeks gestation by Ultras ound Not Available In-Office Order Internal Use Only DO Not Attach Compendium DO Not Attach Compendium, Do Not Delete/merge, [id number] 05/31/2018 13:11:23 05/31/20 18 05/31/2018 non-s tress test Heart Rate 120 Not Available In-Off ice Order Internal Use Only DO Not Attach Compendium DO Not Attach Compendium, Do Not Delete/merge, [id number] 05/31/2018 13:11:23 05/31/20 18 05/31/2018 non-s tress test FHR Baseline (bpm) 120 Not Available In-Off ice Order Internal Use Only DO Not Attach Compendium DO Not Attach Compendium, Do Not Delete/merge, [id number] 05/31/2018 13:11:23 05/31/20 18 05/31/2018 non-s tress test FHR Variability Modera te, 6-25 Not Available In-Office Order Internal Use Only DO Not Attach Compendium DO Not Attach Compendium, Do Not Delete/merge, [id number] 05/31/2018 13:11:23 05/31/20 18 05/31/2018 non-s tress test Acceleration s 120-14 0 Not Available In-Office Order Internal Use Only DO Not Attach Compendium DO Not Attach Compendium, Do Not Delete/merge, [id number] 05/31/2018 13:11:23 05/31/20 18 05/31/2018 non-s tress test Interpretati on REACTI VE Not Available In-Office Order Internal Use Only DO Not Attach Compendium DO Not Attach Compendium, Do Not Delete/merge, [id number] 05/31/2018 13:11:23 05/31/20 18 05/31/2018 non-s tress test Recommendati ons As clinic jen ragland Not Available In-Office Order Internal Use Only DO Not Attach Compendium DO Not Attach Compendium, Do Not Delete/merge, [id number] 05/31/2018 13:11:23 05/23/20 18 US, obste tric, 2nd or 3rd trime ster No observ ation record ed. Not Available 07/2017 07:42:03 Result Notes None recorded. Problems Name Problem SNOMED Code Status Onset Date Resolution Date Notes Provider Name and Address Organization Details Recorded Time Lyme disease 78573478 Active Chronic Lyme Disease, Amoxcill in x 3 weeks earlier in pregnanc y, plasmaph aresis in [place] Davina Barron null, [facility] 8 10:47:23 Advanced maternal age 067134195 Active Davina Barron null, [facility] 8 10:47:23 Advanced maternal age 950397973 Completed Davina Barron null, [facility] 8 10:47:23 Lyme disease 65419172 Completed Chronic Lyme Disease, Amoxcill in x 3 weeks earlier in pregnanc y, plasmaph aresis in [facility] Davina Barron null, [facility] 8 10:47:23 Pregnanc y-induce d hyperten gurpreet 52663756 Completed [place] Davina Barron null, [facility] 8 10:47:23 Pregnanc y 11958158 Completed 201706/06/2018 Davina Barron null, [facility] 8 10:47:26 Hyperten sive disorder 12122559 Active 2017 Ashley Jones MA null, [facility] 8 11:32:09 Problem Notes None recorded. Procedures Surgical History Date Name Laterality Status Provider Name and Address Organization Details Recorded Time 05/17/20 18 [id number] completed Ashley Jones MA [facility] 05/17/2018 13:52:49 Abdominoplasty completed Ashley KarenMELINA [facility] 05/17/2018 11:34:10 Imaging Results None recorded. Procedure Notes None recorded. Medical Equipment None [...] Address Organization Details Last Updated DateTime 05/17/2018 21803.96213 g Not Available [employer] [facility] G Record 05/29/2018 14:41:32 Date Recorded Body weight Systolic And Diastolic Provider Name and Address Organization Details Last Updated DateTime 05/23/2018 53811.56506 g 120/74 mm[Hg] Not Available [facility] Record 05/23/2018 15:46:28 Date Recorded Body weight Systolic And Diastolic Provider Name and Address Organization Details Last Updated DateTime 05/31/2018 15746.92164 g 130/90 mm[Hg] Not Available [facility] Record 05/31/2018 11:24:19 Social History Question Answer Notes LastModified by Organizat ion Details LastModified Time Tobacco Smoking Status Never Smoker Ashley KarenMELINA null, [facility] 05/17/2018 11:33:49 What Was The Date Of Your Most Recent Tobacco Screening? 05/17/2018 Information n ot available 02/14/2019 Sex: Unknown Functional Status None recorded. Mental Status None recorded. Family History Nothing Reported. Medical History Condition Response Other N *No Diseases or Conditions N Blood clots N Breast Cancer N Benign breast disease N Colon cancer N Lung Disease N Depression N Defects or Inherited Disease N Anesthesia Complications N Headaches/Migraines N Have you ever been on isolation N Anxiety Disorder N Arthritis N HSV N Infertility N Abnormal pap N Interstitial Cystitis N Acid Reflux (GERD) N Cancer N Stroke N Endometriosis N Fibromyalgia N Spina Bifida N HIV N Heart Problems N Sexual Dysfunction N Autoimmune disorder N Kidney or Bladder Problems N Thyroid Problems N GI Problems N Eating Disorder [...] Diagnosis SNOMED-CT Code Diagnosis ICD10 Code Diagnosis IMO Codes Diagnosis Note [id number] ANH CABALLERO MD [address] [place] [phone] 05/17/2018 11:24:05 05/17/2018 13:25:29 Lyme disease 62443600 A69.20 Hypertensive disorder 38 824147 I10 24874631 Z33.1 Advanced m aternal age 832973758 O09.523 Routine an tenatal care 863497595 Z34.83 [id number] ANH CABALLERO MD SPW[address] [place] [phone] 05/23/2018 15:21:54 05/23/2018 16:17:27 Routine care 638368162 Z34.83 Venereal d isease screening 163402792 Z11.3 [id number] ANH CABALLERO MD [address] [place] [phone] 05/31/2018 11:09:42 05/31/2018 13:18:30 Routine care 958747879 Z34.90 Hypertensive disorder 38 827116 I10 Gestation period, 37 weeks 36717102 Z3A.37 Health Concerns Section Related Observation LastModified by Organization Detai ls LastModified Time None Recorded Concern Status LastModified by Organization Details LastModified Time None Recorded Advance Directives Directive None Recorded Payers Insurance Date Sequence Insurance Name Policy Number Policy [place] Covered Member ID [place] Member ID Guarantor Name 05/17/2018 1 *SELF PAY* Radha Peralta Notes Date Note Type Note Provider Name and Address Organization Details Recorded Time 05/17/2018 text/html Patient presents for transfer of obstetric care at 35 weeks gestation. Patient's has been complicated by chronic Lyme disease for which she was treated with amoxicillin for 3 weeks earlier in the . Patient developed lymphadenopathy and decided to get alternative therapy in [place] which included plasmapheresis. Patient states that the [...] was negative for Lyme's. ANH CABALLERO MD [address] [place] [address], [address] Floor, [place], [address], [place] [facility] 05/29/2018 14:43:10 OBGyn Episode Ob Episode Information Episode Created Date Number of Fetuses Patient Bloodtype Patient rh Status Prepregnancy Weight lbs Domestic Partner Domestic Partner Phone Father Name Patient Ambassador Status 05/17/20 18 1 CLOSED Fetus Data First Name Last Name Admitted to NICU Weight (g) Sex Living Outcome Pediatric Complications Fetus ID Race Codes Race Delivery Type F [id number] Vaginal Delivery [place] Calculation Initial [place] Date [...] Domestic Partner Domestic Partner Phone Father Name Patient Ambassador Status 05/17/20 18 1 CLOSED Fetus Data First Name Last Name Admitted to NICU Weight (g) Sex Living Outcome Pediatric Complications Fetus ID Race Codes Race Delivery Type 2976.69 [phone] F [id number] Vaginal Delivery Problems Problem Notes Problem Name Start Date End Date Resolution Snomed Code Not e Advanced maternal age 010319615 Lyme disease 68520488 Chronic Lyme Disease, Amoxcillin x 3 weeks earlier in , plasmapharesis in [facility] -induced hypertension 82951655 Aldomet [place] Calculation Initial [place] Date Initial [...] Type Weight in lbs Pre/Post Dialysis Refused 198.482373455358 BP Diastolic BP Location Tested BP Systolic [...] Type Weight in lbs Pre/Post Dialysis Refused 199.078881975374 BP Diastolic BP Location Tested BP Systolic BP Type 74 120 Fetus Heart Rate Present A Present Fetus Movement A Yes Comments PT UNABLE TO LEAVE URINE-pat ient complaining of Shorty Avitia contractions. Discussed with MFM patient's case [...] Type Weight in lbs Pre/Post Dialysis Refused 201.535014774736 BP Diastolic BP Location Tested BP Systolic [...] At Estimated Date of Delivery true Thalassemia (Frisian, East Timorese, Mediterranean, Or Background): MCV < 80 false Neural Tube Defect (Meningom yelocele, Spina Bifida, Or Anencephaly) false Congenital Heart Defect false Down Syndrome false Grzegorz-Sachs (eg, Christian, Cajun, Korean-Nigerien) f alse Mahsa Disease false Sickle Cell Disease Or Trait () false Hemophilia Or Other Blood Disorders false Muscular Dystrophy false Cystic Fibrosis false Mccalla's Chorea false Mental Retardation/Autism false If Yes, [...] true Chronic Lyme Disease Familial Dysautonomia (Ashkenazi Christian) false Spinal Muscular Atrophy false Parkinson Disease [...]
--- OUTSIDE RECORDS SUMMARY | 2025-06-14 18:19 | XMS_ITS | Encounter Summary ---
Author Organization [facility] Address [address] [facility] [address] [address] Phone Care Team Providers Care Biztalk Consultant Name Role Phone Adelos Valentin MD Unavailable [phone] Jennifer Levi NP Primary Care Provider [phone] Angel Pearce DIRECTOR OF STUDENT AID Primary Care Provider [phone] Encounter Details Date Type Department Care Team (Late st Contact Info) Description 07/01/2022 Procedure Pass [facility], Ct Scan - [facility] [address] [place] [address] Social History Tobacco Use Types Packs/Day Years [...] Date of Assessment Author No Risk Indicated 07/03/2022 6:49 AM Patti Baptiste RN * [place] Suicide Severity Rating Scale (Screener/Recent Self-Report) Question Answer Date of Assessment Author 1. Wish to be (Past 1 Month) No 022 6:49 AM Patti Baptiste RN 2. Non-Specific Active Suici lashaun Thoughts (Past 1 Month) No 07/03/2022 6:49 AM EST Maegan Al RN 6. Suicidal Behavior (Lifetime) No 6:49 AM EST Patti Al RN documented as of this encounter Plan of Treatment Upcoming Encounters Date Type Department Care Team (Late st Contact Info) Description 07/27/2024 Procedure Pass [address] [address] 08/23/2025 10:30 AM EST Office Visit [address] [address] Angel Pearce CNP [address] [place] [address] [email or web address] 11/18/2025 1:15 PM EDT Appointment [address] [address] Angel Pearce CNP [address] [place] [address] [email or web address] documented as of this encounter Visit Diagnoses Not on filedocumented in this encounter Additional Health Concerns Infection Onset Date Last Indicated Resolved Time C. diff 07/01/2022 07/01/2022 07/31/2022 1:21 AM EST documented as of this encounter Care Teams Biztalk Consultant Relationship Specialty Start Date End Date Jennifer Levi NP [address] [place] [address] PCP - General Family Medicine 12/04/21 12/22/22 Angel Pearce CNP [address] [place] [address] [email or web address] PCP - General Family Medicine 12/23/22 Adelso Valentin MD [address] [place] [address], [address] [place] [address] [email or web address] Historical LMR Provider 05/11/17 Shelli Reinoso [address] [place] [address] Psychiatrist Psychiatry 11/22/22 documented as of this encounter Additional Source Comments The information contained in this document represents components of the legal health record. It is not the complete legal health record.[facility]
--- OUTSIDE RECORDS SUMMARY | 2025-06-14 18:20 | XMS_ITS | Encounter Summary ---
Author Organization [facility] Address [address] [place] [id number] Phone Care Team Providers Care Frame And Scrap Crusher Name Role Phone Adelso Valentin MD Unavailable [phone] Angel Pearce RADIOLOGY EQUIPMENT SERVICER Primary Care Provider [phone] Reason for Visit * Reason Onset Date Comments Request For Order(s) 04/12/2025 Hair follic le test Encounter Details Date Type Department Care Team (Late st Contact Info) Description 04/12/2025 [address] [address] Angel Pearce, RADIOLOGY EQUIPMENT SERVICER [address] [place] [phone] [email or web address] Request For Order(s) (Hair follicle test) Social History Tobacco Use Types Packs/Day Years [...] high school, GED, job training, learning the [place] language, technical skills, or developing parenting skills)? [...] have you moved in the past 12 tue ths? Unable to assess 10/05/2024 Paying for [...] as of this encounter Progress Notes * Bree Cartwright - 04/12/2025 9:28 AM EDT Pt called in requesting a lab order for a hair follicle test. See TE 03/14. Pt stated this was discussed during TCM with PCP on 04/10. Please contact pt if and when test is ordered. Please contact and advise. Central Support Roll Wrapper (Please do not reply to this user; this inbox is not monitored.) Thank you. documented in this encounter Plan of Treatment Upcoming Encounters Date Type Department Care Team (Late st Contact Info) Description 07/27/2024 Procedure Pass [address] [address] 08/23/2025 10:30 AM EST Office Visit [address] [address] Angel Pearce CNP [address] [place] [id number] [email or web address] 11/18/2025 1:15 PM EDT Appointment [address] [address] Angel Pearce CNP [address] [place] [phone] documented as of this encounter Visit Diagnoses Not on filedocumented in this encounter Additional Health Concerns Assessment Noted Time PHQ-9 Depression Total Score: 9 04/03/20 25 1:07 PM EDT PHQ-2 Depression Total Score: 3 04/03/20 25 1:07 PM EDT documented as of this encounter Care Teams Frame And Scrap Crusher Relationship Specialty Start Date End Date Angel Pearce CNP [address] [place] [phone] PCP - General Family Medicine 12/23/22 Adelso Valentin MD [address] [facility] [place] [address] [email or web address] Historical LMR Provider 05/11/17 Shelli Reinoso [address] [place] [id number] Psychiatrist Psychiatry 11/22/22 documented as of this encounter Additional Source Comments The information contained in this document represents components of the legal health record. It is not the complete legal health record.[facility]
--- OUTSIDE RECORDS SUMMARY | 2025-06-14 18:20 | XMS_ITS | Clinical Summary ---
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 abdomen and pelvis shows no acute abnormality No recent travel-last time out of the country was [place] in January. No recent antibiotics. Diarrhea likely related to hyperthyroidism -She has been volume resuscitated adequately -Tolerating advancing diet -No further diarrhea, abdominal pain improved. -DC Toradol -Zofran p.o. or IV for nausea -Stool studies if diarrhea recurs Encounters Date Type Department Care Team Description 05/23/2025 10:30 AM EDT Office Visit [facility] [address] [place] [address] Angel Pearce, KOFI Bipolar 1 disorder (Primary Dx); Primary hypertension; Irregular menses 04/12/2025 Telephone [facility] [address] [place] [address] Angel Paerce CNP Request For Order(s) (Hair follicle test) 04/10/2025 3:45 PM EDT Office Visit [facility] [address] [place] [address] Angel Pearce CNP Hospital discharge follow-up (Primary Dx); Primary hypertension; Tachycardia; Irregular menses; Bipolar 1 disorder 03/27/2025 Telephone [facility] [address] [place] [address] Angel Pearce CNP TCM Visit 03/14/[address] [address] Angel Pearce CNP Hair Follicle Test from Last 3 Months Immunizations Immunization Administration Dates Next Due Tdap 10/18/2012 Family History Medical History Relation Comments Hypertension Father 2 Hypertension Mother 2 Stroke Mother 2 Relation Status Comments Father 1 Alive Father 2 Mother 1 Alive Mother 2 Social History Tobacco Use Types Packs/Day Years Used Date Smoking Tobacco: Never Smokeless Tobacco: Never Tobacco Cessation:Counseling Given: Not Answered Alcohol Use Standard Drinks/Week Comments Never 0 [...] high school, GED, job training, learning the Fijian language, technical skills, or developing parenting skills)? [...] Orientation Straight 10/02/2021 12 :12 AM EST Last Filed Vital Signs Vital Sign Reading Time Taken Comments Blood Pressure 118/68 05/23/2025 10:17 AM EDT Pulse 74 05/23/2025 10:17 AM EDT Temperature 36.8 C (98.2 F) 04/10/2025 3:30 PM EDT Respiratory Rate 16 03/06/2025 1:07 PM EDT Oxygen Saturation 97% 05/23/2025 10:17 AM EDT Inhaled Oxygen Concentration - - Weight 111.1 kg (245 lb) 05/23/2025 10:17 AM EDT Height 180.3 cm (5' 11 ) 05/23/2025 10:17 AM EDT Body Mass Index 34.17 05/23/2025 10:17 AM EDT Plan of Treatment Upcoming Encounters Date Type Department Care Team (Late st Contact Info) Description 07/27/2024 Procedure Pass [address] [address] 08/23/2025 10:30 AM EST Office Visit [address] [address] Angel Pearce, TIRE BUSTER [address] [place] [address] 11/18/2025 1:15 PM EDT Appointment [address] [address] Angel Pearce, TIRE BUSTER [address] [place] [address] Health Maintenance Due Date Last Done Comments MAMMOGRAM 1977 HEPATITIS C SCREENING 12/08/1995 HIV ONE-TIME SCREENING (18-6 5 YEARS) 12/08/1995 PAP SMEAR 1998 Adult Td,Tdap Booster 10/18/2022 10/18/2012 COLOGUARD 2022 COLONOSCOPY 2022 COLORECTAL CANCER SCREENING 2022 FIT TEST 2022 FOBT 2022 SIGMOIDOSCOPY 2022 VIRTUAL COLONOSCOPY 2022 COVID-19 VACCINE ( - 2024-2 6 season) 2025 BLOOD PRESSURE 11/21/2025 05/23/2025 INFLUENZA VACCINE (#1) 2026 Postp oned from 02/22/2025 (Patient Declines / Guardian Declines) DEPRESSION SCREENING 04/03/2026 04/03/2025, 04/03/2025 SCREENING FOR DIABETES 10/08/2027 , 10/05/2024 LIPID PANEL 10/07/2029 10/07/2024 SMOKING STATUS SCREENING (Once After 26 Yrs) Completed 04/11/2025 HEPATITIS A VACCINES Aged Out No long er eligible based on patient's age to complete this topic HIB VACCINES Aged Out No longer eligi ble based on patient's age to complete this topic MENINGOCOCCAL VACCINES (ACWY) Aged Out No longer eligible based on patient's age to complete this topic MENINGOCOCCAL VACCINES (B) Aged Out N o longer eligible based on patient's age to complete this topic PNEUMOCOCCAL VACCINES (0-49 years) Aged Out No longer eligible b ased on patient's age to complete this topic Medical Devices Not on file Procedures Procedure Name Priority Date/Time Associated Diagnosis Comments LIPID PANEL Routine 10/07/2024 7:51 AM EDT from Last 3 Months or Most Recently Relevant to Health Maintenance Results * Lipid panel (10/07/2024 7:51 AM EDT) HDL 32 mg/dL [facility] Comment: Interpretation <40 mg/dL: Low HDL cholesterol (major risk factor for CHD) Greater than or equal to 60 mg/dL: High HDL cholesterol ( negative risk factor for CHD) HDL - cholesterol is affected by a number of factors, e.g. smoking, excerise, hormones, sex and age. CHOLESTEROL 137 0 - 240 mg/dL [facility] TRIGLYCERIDES 105 30 - 160 mg/dL [facility] LDL 84 50 - 129 mg/dL [facility] Comment: LDL levels in terms of risk for coronary heart disease: <100 mg/dL: Optimal 100-129 mg/dL: Near or above optimal 130-159 mg/dL: Borderline high 160-189 mg/dL: High >190 mg/dL: Very High CARDIAC RISK RATIO 4.3 3.3 - 4.4 [facility] Blood 10/07/2024 7:51 AM EDT 10/07/2024 8:02 AM EDT us Barbara Trejo MD LAB BLOOD BKR ORDERABLES Marianna l Result [id number] [address] from Last 3 Months or Most Recently Relevant to Health Maintenance Insurance [facility] B [facility] [employer] MEDICARE PART A & B [employer] P[id number] [id number] [facility] [employer] PPO MEDICARE PART A & B Member Subscriber Plan / Payer (Ef fective 2024-Present) Name:Angélica Hair Member ID:[id number] Relation to Subscriber:Self Name:Angélica Hair Subscriber ID:[id number] Payer ID:[id number] Group ID:Not on file Type:Medicare Address: [employer] [facility] [address] [address] [facility] & B [facility] A & B [employer] PLUS PPO [facility] [employer] PLUS PPO MEDICARE PART A & B Advance Directives For more information, please contact: [phone] (9AM - 5PM Angeline/[facility], Tuesday-Tuesday) Documents on File Type Date Recorded Patient Supervisor Title Expl anation Legal Guardianship 10/17/2024 1:52 PM Juan Jose on To Continue the Hearing * Full Code (Latest Code Status on File) Date Activated Date Inactivated Comments 06/18/2021 3:55 PM Question Answer Comments Code Status Confirmed With: Patient Care Teams Optical Fabricator Relationship Specialty Start Date End Date Angel Pearce CNP [address] [place] [address] [place] [address] PCP - General Family Medicine 12/23/22 Adelso Valentin MD [address] [place] [address], [address] [place] [address] Historical LMR Provider 05/11/17 Shelli Reinoso [address] [place] [id number] Psychiatrist Psychiatry 11/22/22 Additional Source Comments The information contained in this document represents components of the legal health record. It is not the complete legal health record.[facility]
[2025-06-14 18:23] LABS: Hematocrit 37.7 % (37.0-47.0); Hemoglobin 12.5 g/dl (12.0-16.0); Imm Gran Abs Auto 0.07 X10*3/uL (0.00-0.03); Imm Gran Pct Auto 0.7 % (0.0-0.4); Lymphocytes Absolute Auto 3.1 X10*3/uL (1.2-4.9); MANUAL DIFF FLAG NO; Mean Corpuscular HGB Conc 33.2 g/dl (31.0-35.0); Mean Corpuscular Hemoglobin 28.7 pg (27.0-33.0); Mean Corpuscular Volume 86.5 fL (80.0-98.0); NRBC Abs Auto 0.000 X10*3/uL (0.0-0.012); NRBC Pct Auto 0.0 /100WBC (0.0-0.2); Platelet Count 413 X10*3/uL (160-400); Red Blood Count 4.36 X10*6/uL (4.20-5.50); White Blood Count 10.0 X10*3/uL (4.8-10.8)
[2025-06-14 18:43] LABS: Alanine Aminotransferase 28 U/L (0-31); Albumin Level 4.3 g/dL (3.5-5.0); Alkaline Phosphatase 69 U/L (39-117); Anion Gap 11 (12-20); Aspartate Amino Transferase 23 U/L (5-31); Blood Urea Nitrogen 6 mg/dL (9-16); Calcium 8.5 mg/dL (8.4-10.2); Carbon Dioxide 24 mmol/L (22-29); Chloride 111 mmol/L (96-108); Creatinine Clr Calc Pharmacy 153.2; Estimated Glomerular Filt Rate > 60; Potassium 3.9 mmol/L (3.3-5.1); Sodium 142 mmol/L (135-145); Total Protein 7.2 g/dL (6.5-8.0)
[2025-06-14 18:45] LABS: COVID-19 Test Negative (Negative); IDNOW Serial# 55D5AD1C
[2025-06-14 20:06] LABS: UPreg QC Valid YES
[2025-06-14 20:14] LABS: Cannabinoid Screen Urine Not Detected (Not Detect)
[2025-06-14 20:20] LABS: Appearance Urine Clear; Glucose Urine UA Negative (Negative); PH 6.0 (5.0-9.0); Specific Gravity - Urine 1.020 (1.005-1.025); UMIC TRIGGER UACC YES
--- NOTE | 2025-06-14 23:35 | PC.NURSE ---
Patient requested PRN Valium for increased anxiety. [facility] made aware, 1x order for 10mg Valium obtained/administered. Pending effectiveness.
[2025-06-14 23:37] VITALS: BP 141/90; PULSE 78; RESP 16; TEMP 36.8; O2SAT 100
--- NOTE | 2025-06-15 05:27 | PC.NURSE ---
Late entry for 19:40 - Patient presents as calm and cooperative with flat affect. Denies SI/HI/AVH. Agreeable to alert staff if feeling unsafe. Requesting PRN medication for sleep. [facility] made aware, obtained/administered PRN Trazodone for sleep. Will continue to monitor for safety.
--- NOTE | 2025-06-15 07:43 | PC.NURSE ---
Assumed care, report received. Pt eats breakfast, she reports anxiety but states she feels better than yesterday. She denies SI/HI/AVH
--- NOTE | 2025-06-15 07:51 | PHA.MEDREC ---
Pharmacy Consult ? Medication Reconciliation Pharmacy has completed the medication reconciliation. Reviewed med rec done by nursing, matches PDMP.
[2025-06-15] MEDS: Amphetamine Mixed Salts 10 MG TABLET 30 MG PO (08:37)
[2025-06-15] MEDS: Dextroamphetamine/Amphetamine XR 10 MG CAP.ER.24H 30 MG PO (11:54)
--- NOTE | 2025-06-15 13:00 | MHC.CARE ---
Pt will be a next day follow up
[2025-06-15 15:50] VITALS: BP 149/78; PULSE 93; RESP 18; TEMP 36.4; O2SAT 98
--- NOTE | 2025-06-15 17:32 | PC.NURSE ---
Pt continues to have anxiety throughout the shift. She utilizes PRN's with good effect. SHe naps and watches TV most of the day. she denies SI/HI/AVH
[2025-06-15 20:08] VITALS: BP 137/77; PULSE 80; RESP 18; TEMP 36.6; O2SAT 97
[2025-06-15 20:31] VITALS: BP 137/77; PULSE 80
--- NOTE | 2025-06-16 07:58 | PC.NURSE ---
Assumed care, report received. Pt is awake, she has eaten breakfast, given meds and is awaiting a Re-assessment by the Care team. She denies SI/HI/AVH
[2025-06-16] MEDS: Amphetamine Mixed Salts 10 MG TABLET 30 MG PO (08:03)
[2025-06-16 11:28] VITALS: BP 167/97; PULSE 86; RESP 15; TEMP 36.7; O2SAT 98
[2025-06-16] MEDS: Dextroamphetamine/Amphetamine XR 10 MG CAP.ER.24H 30 MG PO (11:46)
[2025-06-16 13:58] VITALS: BP 167/97; PULSE 86; RESP 15; TEMP 36.7; O2SAT 98
== END 2025-06-16 14:14 | disposition home or self-care (01) ==
PROVIDERS: Physician Assistant; Emergency Provider Emergency Medicine
DX: F33.1 Major depressive disorder, recurrent, moderate (principal); F41.1 Generalized anxiety disorder; G47.00 Insomnia, unspecified; Z51.81 Encounter for therapeutic drug level monitoring; Z79.899 Other long term (current) drug therapy; Z11.52 Encounter for screening for COVID-19
CPT/HCPCS: 80053; 80307; 81001; 81025; 85025; 87635; 99285; S9485